=== PATIENT | male | born 1955 | race Caucasian/White ===

== ENCOUNTER 2021-01-13 11:01 | Outpatient (CLI) | payer MEDICARE, OTHER, SELFPAY ==
--- NOTE | ~2021-01-13 | US_ITS ---
US soft tissue groin LT 01/13/2021 11:37 Indication: Left groin and pelvic swelling. History of hernia repair. Procedure: High-resolution ultrasound of the left groin Comparison: No prior studies for comparison. Findings: There is normal heterogeneous soft tissues in the left groin without evidence for hernia. N o abnormal masses or fluid collections. Normal vascularity. Impression: 1: Normal limited soft tissue ultrasound of the left groin without evidence for hernia. Reviewed, dictated and finalized at location A. Impression: 1: Normal limited soft tissue ultrasound of the left groin without evidence for hernia.
== END 2021-01-13 11:02 | disposition home or self-care (01) ==
LOC: ANHIMG 11:04
PROVIDERS: PCP Family Medicine; Visit Provider Family Medicine
DX: R19.00 Intra-abdominal and pelvic swelling, mass and lump, unspecified site (principal)
CPT/HCPCS: 76882

== ENCOUNTER 2021-08-15 06:58 | Outpatient (CLI) | payer MEDICARE, OTHER, SELFPAY ==
--- NOTE | ~2021-08-15 | XR_ITS ---
XR chest 2V 08/15/2021 07:18 Indication: Rheumatoid arthritis. Shortness of breath. Procedure: 2 view chest Comparison: 06/18/2019 Findings: Heart size normal. Left perihilar and bibasilar atelectasis. No focal pneumonia, pleural ef fusion, edema or pneumothorax. Impression: 1: Left perihilar and bibasilar atelectasis. Reviewed, dictated and finalized at location A. Y SPECIALIST Impression: 1: Left perihilar and bibasilar atelectasis.
[2021-08-15 07:43] LABS: Basophils Absolute Auto 0.1 K/mm3 (0.0-0.1); Eosinophils Absolute Auto 0.2 K/mm3 (0-0.3); Eosinophils Percent Auto 2.8 % (0-4.4); Hematocrit 49.1 % (42.0-52.0); Hemoglobin 15.9 g/dL (14.0-18.0); Immature Granulocyte Absolute 0.01 K/mm3 (0.00-0.031); Immature Granulocyte Percent A 0.2 % (0-0.5); Lymphocytes Absolute Auto 2.65 K/mm3 (0.9-3.2); Lymphocytes Percent Auto 45.8 % (18.3-44.2); Mean Corpuscular HGB Conc 32.4 g/dl (32-36); Mean Corpuscular Hemoglobin 31.1 pg (26-34); Mean Corpuscular Volume 96.1 fl (80-100); Mean Platelet Volume 9.4 fl (7.4-10.4); Monocytes Absolute Auto 0.8 K/mm3 (0.1-0.6); Monocytes Percent Auto 13.7 % (2.6-8.5); Neutrophils Absolute Auto 2.1 K/mm3 (1.3-6.7); Neutrophils Percent Auto 36.5 % (45.5-73.1); Platelet Count Result 236 k/mm3 (150-375); Red Blood Count 5.11 M/mm3 (4.6-6.20); Red Cell Distribution Width 13.8 % (11.5-14.5); White Blood Count 5.8 K/mm3 (4.5-10.0)
[2021-08-15 07:54] LABS: Alanine Aminotransferase 44 U/L (4-50); Albumin Level 4.4 g/dL (3.5-5.1); Alkaline Phosphatase 75 U/L (38-126); Anion Gap 6 mmol/L (8-16); Aspartate Amino Transferase 34 U/L (17-59); Bilirubin,Total 0.6 mg/dL (0.2-1.3); Blood Urea Nitrogen 19 mg/dL (9-20); Calcium 9.2 mg/dL (8.4-10.2); Carbon Dioxide 27 mmol/L (22-30); Chloride 107 mmol/L (98-107); Cholesterol 133 mg/dL (0-200); Estimated Glomerular Filt Rate > 60; Glucose 142 mg/dL (65-110); HDL Direct 58 mg/dL; Potassium 4.4 mmol/L (3.4-5.0); Sodium 140 mmol/L (137-145); Triglycerides 93 mg/dL (<150)
[2021-08-15 08:04] LABS: Hemoglobin A1C 6.3 % (<5.7)
[2021-08-15 08:05] LABS: LDL Cholesterol Direct 53 mg/dL
== END 2021-08-15 06:59 | disposition home or self-care (01) ==
LOC: ANHIMG 07:03
PROVIDERS: PCP Family Medicine; Visit Provider Nurse Practitioner Gerontology
DX: M06.9 Rheumatoid arthritis, unspecified (principal); I10 Essential (primary) hypertension; E78.5 Hyperlipidemia, unspecified; R91.8 Other nonspecific abnormal finding of lung field
CPT/HCPCS: 36415; 71046; 80053; 80061; 83036; 85025

== ENCOUNTER → 2021-10-21 02:09 | Outpatient (CLI) | payer MEDICARE, OTHER, SELFPAY ==
[2021-10-21 15:55] LABS: SARS-CoV-2 RNA PCR Negative
== END ==
PROVIDERS: PCP Family Medicine; Visit Provider Nurse Practitioner Gerontology
DX: R68.89 Other general symptoms and signs (principal); Z20.822 Contact with and (suspected) exposure to COVID-19
CPT/HCPCS: C9803; U0003; U0005

== ENCOUNTER 2022-04-21 14:31 | Outpatient (CLI) | payer MEDICARE, OTHER, SELFPAY ==
--- NOTE | ~2022-04-21 | XR_ITS ---
EXAMINATION: XR chest 2V 04/21/2022 14:51 INDICATION: Wheezing.- Controlled hypertension PROCEDURE: 2 view chest COMPARISON: 08/15/2021 FINDINGS: The lungs are clear. The cardiomediastinal silhouette is within normal limits. There are no pleural effusions. There is no pneumothorax suspected. IMPRESSION: 1: NO ACUTE CARDIOPULMONARY DISEASE. Reviewed, dictated and finalized at location A.
== END 2022-04-21 14:32 | disposition home or self-care (01) ==
PROVIDERS: PCP Family Medicine; Visit Provider Nurse Practitioner Gerontology
DX: R06.2 Wheezing (principal); R06.02 Shortness of breath; Z87.891 Personal history of nicotine dependence
CPT/HCPCS: 71046

== ENCOUNTER 2022-05-10 08:50 | Outpatient (CLI) | payer MEDICARE, OTHER, SELFPAY ==
--- NOTE | 2022-05-10 12:35 | WPDPFTINT ---
PFT Procedure Performed PFT Procedure Performed Plethysmography (Lung Vol) Diffusing Cap (DLCO) Flow Vol Loop Spirometry w/o Bronchodil PFT Interpretation This is a pulmonary function test with spirometry, plethysmography and diffusing capacity. The test was performed and results interpreted in accordance with the 2019 and 2005 ATS/ERS Task Force guidelines respectively using the Global Lung Function Initiative-2012 reference equations. Patient demonstrated good effort and cooperation. Reproducibility criteria were met. The quality of the spirometry maneuver was Grade A. Findings: Spirometry: The contour the expiratory flow tracing is flattened. The contour the inspiratory flow tracing is normal. The FVC is 4.17 L, 88% predicted. The FEV1 is 3.15 L, 88% predicted. the FEV1: FVC ratio 75%. Plethysmography: The total lung capacity is 7.39 L, 100% predicted. The functional residual capacity is 3.86 L, 98% predicted. The residual volume is 2.95 L, 119% predicted. Diffusing capacity: The diffusing capacity unadjusted for hemoglobin and carboxyhemoglobin is 30.5, 109% predicted. The diffusing capacity adjusted for alveolar volume is 4.74, 120% predicted. Impression: The contour the expiratory flow tracing is flattened. This is consistent with a variable intrathoracic obstruction and can be seen with tracheomalacia of the intrathoracic airway, intrathoracic bronchogenic cyst, malignant tracheal lesions and vocal fold abnormalities. Clinical correlation is recommended. Otherwise, the spirometry is normal without evidence of an obstructive abnormality. The lung volumes are normal. The diffusing capacity is normal. There are no prior studies for comparison
== END 2022-05-10 08:51 | disposition home or self-care (01) ==
LOC: ANHPFT 08:51
PROVIDERS: PCP Family Medicine; Visit Provider Nurse Practitioner Gerontology
DX: R06.02 Shortness of breath (principal)
CPT/HCPCS: 94375; 94726; 94729

== ENCOUNTER 2022-05-25 08:58 | Outpatient (CLI) | payer MEDICARE, OTHER, SELFPAY ==
--- NOTE | ~2022-05-25 | CT_ITS ---
EXAMINATION: CT soft tissue neck chest w DATE: 05/25/2022 09:39 INDICATION: Wheezing. Shortness of breath. Abnormal pulmonary function tests. TECHNIQUE: Computed tomography (CT) of the neck and chest was performed with 75 mL Omnipaque-350 intr avenous contrast. Automated exposure control and iterative reconstruction technique were employed. e dose-length product was 1167.56 mGy-cm. COMPARISON: chest CT 04/22/19 FINDINGS: CT NECK: There are no pathologically enlarged lymph nodes. There is plaque in the proximal internal c arotid arteries with less than 50% stenosis relative to normal distal artery lumen diameters. There i s mild mucosal thickening in the paranasal sinuses. There is plate and screw fixation of the anterior lindsey of the maxillary sinuses. The mastoid air cells are normal. There is mild cervical spondylosis . CT CHEST: There is chronic mild elevation of right hemidiaphragm. There is mild bronchiectasis in rig ht middle lobe. No honeycombing. The lungs demonstrate mild atelectasis. There is a stable 4 mm nodul e in left lower lobe, likely benign. No pleural effusion. The trachea is normal. The heart size is no rmal. There are coronary artery calcifications. No pericardial effusion. There is mild thoracic spond ylosis. IMPRESSION: 1. Mild bronchiectasis in right middle lobe. 2. Chronic mild elevation of right hemidiaphragm. Reviewed, dictated and finalized at location E. T LINER HELPER
[2022-05-25 09:23] LABS: Estimated Glomerular Filt Rate > 60
== END 2022-05-25 08:59 | disposition home or self-care (01) ==
PROVIDERS: PCP Family Medicine; Visit Provider Nurse Practitioner Gerontology
DX: R06.02 Shortness of breath (principal); R06.2 Wheezing; Z87.891 Personal history of nicotine dependence; J47.9 Bronchiectasis, uncomplicated
CPT/HCPCS: 70491; 71260; Q9967

== ENCOUNTER 2022-06-21 08:52 | Outpatient (CLI) | payer MEDICARE, OTHER, SELFPAY ==
--- NOTE | ~2022-06-21 | XR_ITS ---
EXAMINATION: XR barium swallow modified DATE: 06/21/2022 09:37 INDICATION: Abnormal pulmonary function tests, dysphagia TECHNIQUE: Modified barium esophagram was performed by myself who administered fluoroscopy, in conju nction with speech pathologist who administered barium in varying consistencies as per speech patholo gist documentation. This was recorded on tape. A single fluoroscopic spot image was recorded. Fluoros copy exposure time was 1.1 minutes. The DAP for this procedure was 1.657 Gycm2. FINDINGS: Oral stage: Adequate function. Pharyngeal phase: Adequate function. Laryngeal penetration: None. Aspiration: None. Laryngeal sensitivity: Present. IMPRESSION: Normal modified barium swallow. Please refer to speech pathologist findings and specific feeding recommendations. Reviewed, dictated and finalized at location A. IOLOGIST
--- NOTE | 2022-06-21 10:54 | REHSTMBS ---
Assessment and note entered by Evelia Reyes, PRINT DESIGNER Modified Barium Swallow Evaluation Feeding Type Recommended Oral Food Consistency Regular, Level 7 Liquid Consistency Thin (0) ST Clinical Summary MODIFIED BARIUM SWALLOW STUDY Patient was seen for a Modified Barium Swallow study at the request of his physician. Patient reports that he feels that something gets caught in his throat, moreso saliva than food or liquid, in fact denied difficulty swallowing food/liquid. Patient reports that occasionally he wheezes and occasionally he coughs up little white balls. This Modified Barium Swallow study was administered to assess this patient's muscle function for swallowing and to determine any risk for aspiration. Patient was viewed in the lateral position to the level of C5/C6. He was presented with average size sips of thin liquid contrast medium per cup and per straw, and then average bite-size of pudding mixed with semi-solid contrast medium and cracker coated with the mixture. Patient elicited quick swallows with no evidence of risk for penetration/aspiration. Muscle function appeared adequate. Patient is referred back to his physician for further assessment of his complaints. Thank you for this referral.
--- NOTE | 2022-06-21 12:16 | WPDPFTINT ---
PFT Procedure Performed PFT Procedure Performed Spirometry with Pre/Post Bronchodilator Flow Vol Loop PFT Interpretation Spirometry showed normal expiratory flow rates and a normal FEV1 to FVC ratio 76%. Following administration of a bronchodilator there was no significant change in the expiratory flow rates. The flow-volume loop is unremarkable. In comparison to previous study in April of 2022 the forced vital capacity and FEV1 are essentially unchanged. Impression: Spirometry within the normal range.
== END 2022-06-21 08:53 | disposition home or self-care (01) ==
PROVIDERS: PCP Family Medicine; Visit Provider Internal Medicine Pulmonary Disease
DX: R06.00 Dyspnea, unspecified (principal); R13.10 Dysphagia, unspecified; R94.2 Abnormal results of pulmonary function studies; R06.02 Shortness of breath; R06.2 Wheezing; Z87.891 Personal history of nicotine dependence
CPT/HCPCS: 92611; 94060

== ENCOUNTER 2022-08-06 18:15 | Emergency (ER) | payer MEDICARE, OTHER, SELFPAY ==
--- NOTE | ~2022-08-06 | XR_ITS ---
EXAMINATION: XR chest 1V Exam Date/Time: 08/06/2022 20:13 GENERATING STATION MECHANIC HISTORY: COVID+, has cough and fever. HX HTN Comparison: 04/21/2022. RESULT: Lines, tubes, and devices: None. Lungs and pleura: Left midlung scar. Bibasilar scar/atelectasis. Lungs otherwise clear Cardiomediastinal silhouette: Stable. Other: No acute osseous or upper abdominal finding. IMPRESSION: No acute cardiopulmonary process. Reviewed, dictated and finalized at location K. RATING STATION MECHANIC
[2022-08-06 18:21] VITALS: BP 215/91; PULSE 113; RESP 20; TEMP 38.2; O2SAT 95
[2022-08-06 18:42] LABS: Basophils Absolute Auto 0.1 K/mm3 (0.0-0.1); Basophils Percent Auto 0.6 % (0.2-1.2); Eosinophils Percent Auto 0.1 % (0-4.4); Hematocrit 46.9 % (42.0-52.0); Hemoglobin 15.8 g/dL (14.0-18.0); Immature Granulocyte Absolute 0.03 K/mm3 (0.00-0.031); Immature Granulocyte Percent A 0.3 % (0-0.5); Lymphocytes Absolute Auto 0.72 K/mm3 (0.9-3.2); Mean Corpuscular HGB Conc 33.7 g/dl (32-36); Mean Corpuscular Hemoglobin 31.5 pg (26-34); Mean Corpuscular Volume 93.4 fl (80-100); Mean Platelet Volume 9.4 fl (7.4-10.4); Monocytes Absolute Auto 0.9 K/mm3 (0.1-0.6); Monocytes Percent Auto 9.5 % (2.6-8.5); Neutrophils Absolute Auto 7.4 K/mm3 (1.3-6.7); Neutrophils Percent Auto 81.5 % (45.5-73.1); Platelet Count Result 243 k/mm3 (150-375); Red Blood Count 5.02 M/mm3 (4.6-6.20); Red Cell Distribution Width 13.8 % (11.5-14.5); White Blood Count 9.1 K/mm3 (4.5-10.0)
[2022-08-06 18:53] LABS: Lactic Acid Reflex 1.2 mmol/L (0.7-2.0)
[2022-08-06 18:54] LABS: Alanine Aminotransferase 47 U/L (6-50); Albumin Level 4.6 g/dL (3.5-5.1); Alkaline Phosphatase 83 U/L (38-126); Anion Gap 9 mmol/L (8-16); Aspartate Amino Transferase 39 U/L (17-59); Bilirubin,Total 0.7 mg/dL (0.2-1.3); Blood Urea Nitrogen 14 mg/dL (9-20); Calcium 8.7 mg/dL (8.4-10.2); Carbon Dioxide 25 mmol/L (22-30); Chloride 104 mmol/L (98-107); Estimated CRCL calculation 105 ml/min; Estimated Glomerular Filt Rate > 60; Glucose 156 mg/dL (65-110); Potassium 4.1 mmol/L (3.4-5.0); Sodium 138 mmol/L (137-145)
[2022-08-06 20:58] VITALS: BP 164/93; PULSE 101; RESP 17; TEMP 36.9; O2SAT 97
--- NOTE | 2022-08-06 21:01 | PC.NURSE ---
Triage note reviewed and confirmed. Pt c/o fever at home. Also tested positive for covid. Also states feeling nauseous. hx of htn. a&ox4, NAD.
--- NOTE | 2022-08-06 21:53 | ED.GENADULT ---
HPI - General Adult General Chief complaint: Fever Stated complaint: covid + Time Seen by Provider: 08/06/22 21:39 History of Present Illness HPI narrative: Patient is a 67-year-old gentleman who presents the emergency department with chief complaint of COVID-19 infection. The patient reports that his symptoms started yesterday and then today started having fever and cough. Patient reports no nausea vomiting chest pain or shortness of breath. The patient states his cough has improved since he is arrived in the emergency department. Patient reports that he does have history of rheumatoid arthritis and is currently on immunosuppressive agents. Related Data Home Medications Medication Instructions Recorded Confirmed esomeprazole magnesium 20 mg 20 mg PO DAILY 04/22/19 06/05/22 capsule,delayed release (Nexium) folic acid 1 mg tablet 1 mg PO DAILY 04/22/19 06/05/22 hydroxychloroquine 200 mg tablet 200 mg PO BID 04/22/19 06/05/22 (Plaquenil) methotrexate sodium 2.5 mg tablet 20 mg PO WEEKLY 04/22/19 06/05/22 econazole 1 % topical cream 1 applic topical DAILY 08/26/21 06/05/22 furosemide 20 mg tablet 10 mg PO DAILY 06/05/22 06/05/22 rosuvastatin 20 mg tablet (Crestor) 10 mg PO DAILY 06/05/22 06/05/22 Allergies Allergy/AdvReac Type Severity Reaction Status Date / Time No Known Allergies Allergy Unverified 06/05/22 10:48 Review of Systems Review of Systems: A 10 system review of systems was completed on the patient and is negative except for what is stated in the HPI. Nursing and ancillary documentation was reviewed. [facility] Past Medical History Medical History Cleft palate Diet-controlled diabetes mellitus Hearing loss of both ears Hernia x3 HLD (hyperlipidemia) HTN (hypertension) Immunocompromised patient Pneumonia Rheumatoid arthritis On hydroxychloroquine, methotrexate, and leflunomide. Wears hearing aid Surgical History Surgical History History of ear surgery History of hernia repair X3. History of repair of congenital cleft palate Status post laser lithotripsy of ureteral calculus Family History Family History Mother Dementia Anxiety Hypercholesteremia Hypertension Father Heart attack Hypercholesteremia Hypertension Lung cancer Sibling Kidney disease Social History Social History Social History: The patient is and lives with his in [place]. 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 He designates his , Toyin, as his surrogate decision maker and he wishes to be a full code. He has a 15 pack year smoking history and quit 1993. He denies alcohol and drug use. Smoking packs per day: 2 Smoking cigarettes per day: 40.0 Years smoked: 17 Smoking pack-years: 34.00 Smoking status: Former smoker Tobacco type: cigarettes Second hand tobacco smoke exposure: No Smoking end date: 12/20/93 Alcohol intake: never Substance use: never Substance use type: does not use Living arrangements: with family Occupation/Education: retired Gender identity (if verbalized by the patient): Male Sexual Orientation (if Verbalized by the Patient): Straight or Heterosexual Exam Narrative: GENERAL: Well-appearing, well-nourished, and in no acute distress. HEAD: Normocephalic, atraumatic. EYES: PERRLA and EOMI. ENT: Nares clear, no rhinorrhea or epistaxis. Mucous membranes moist. NECK: Supple. CHEST: Clear to auscultation. No respiratory distress. HEART: Regular rate and rhythm. No murmur heard. Normal peripheral pulses. ABDOMEN: Soft, nontender, nondistended, normal active bowel sounds. EXTREMITIES: Normal range of motion. No edema. SKIN: Warm, dry, no rash. IMER
[2022-08-06 22:39] VITALS: BP 143/87; PULSE 89; RESP 18; TEMP 37.2; O2SAT 99
--- NOTE | 2022-08-07 08:26 | PC.NURSE ---
Had rxs sent to [facility] which is closed today; want it sent to [facility]; store not open yet; left Rxs on voice mail system.
== END 2022-08-06 22:40 | disposition home or self-care (01) ==
PROVIDERS: Emergency Medicine; Emergency Provider Emergency Medicine; PCP Family Medicine
DX: U07.1 COVID-19 (principal); E11.9 Type 2 diabetes mellitus without complications; E78.5 Hyperlipidemia, unspecified; I10 Essential (primary) hypertension; M06.9 Rheumatoid arthritis, unspecified; Z87.01 Personal history of pneumonia (recurrent); Z87.442 Personal history of urinary calculi
CPT/HCPCS: 36415; 71045; 80053; 83605; 85025; 99283

== ENCOUNTER 2022-10-10 06:55 | Outpatient (CLI) | payer MEDICARE, OTHER, SELFPAY ==
[2022-10-10 07:32] LABS: Cholesterol 122 mg/dL (0-200); HDL Direct 49 mg/dL; Triglycerides 105 mg/dL (<150)
[2022-10-10 07:43] LABS: LDL Cholesterol Direct 54 mg/dL
[2022-10-10 08:03] LABS: Hemoglobin A1C 6.9 % (<5.7)
== END 2022-10-10 06:56 | disposition home or self-care (01) ==
LOC: ANHLAB 06:57
PROVIDERS: PCP Family Medicine; Visit Provider Physician Assistant
DX: R73.03 Prediabetes (principal); E78.5 Hyperlipidemia, unspecified
CPT/HCPCS: 36415; 80061; 83036

== ENCOUNTER 2022-11-15 07:32 | Outpatient (CLI) | payer MEDICARE, OTHER, SELFPAY ==
--- NOTE | ~2022-11-15 | XR_ITS ---
XR shoulder LT min 2V DATE: 11/15/2022 07:49 INDICATION: Left arm pain TECHNIQUE: 4 views COMPARISON: None FINDINGS: There is prominent inferior spurring of the lateral articular margin of the left clavicle. There is old healed fracture deformity of the very lateral left clavicular shaft. No recent fracture or dislocation, periosteal reaction or bone destruction is detected. IMPRESSION: Degenerative change at the left glenohumeral joint including prominent inferior lateral a rticular clavicular spur Old healed lateral left clavicular shaft fracture deformity Reviewed, dictated and finalized at location A. IMPRESSION: Degenerative change at the left glenohumeral joint including promin ent inferior lateral articular clavicular spur Old healed lateral left clavicular shaft fracture deformity
== END 2022-11-15 07:33 | disposition home or self-care (01) ==
LOC: ANHIMG 07:36
PROVIDERS: PCP Family Medicine; Visit Provider Nurse Practitioner Gerontology
DX: M19.012 Primary osteoarthritis, left shoulder (principal)
CPT/HCPCS: 73030

== ENCOUNTER 2022-11-29 14:49 | Outpatient (CLI) | payer MEDICARE, OTHER, SELFPAY ==
[2022-11-30 08:25] LABS: Erythrocyte Sedimentation Rate 7 mm/hr (0-20)
[2022-11-30 10:29] LABS: CRP < 0.5 mg/dL (<1.0); Uric Acid 5.2 mg/dL (3.5-8.5)
== END 2022-11-29 14:50 | disposition home or self-care (01) ==
PROVIDERS: PCP Family Medicine; Visit Provider Podiatrist Foot & Ankle Surgery
DX: M25.571 Pain in right ankle and joints of right foot (principal); M25.572 Pain in left ankle and joints of left foot
CPT/HCPCS: 36415; 84550; 85652; 86140

== ENCOUNTER 2023-03-17 08:51 | Outpatient (CLI) | payer MEDICARE, OTHER, SELFPAY ==
--- NOTE | ~2023-03-17 | MR_ITS ---
EXAMINATION: MR shoulder LT wo con DATE: 03/17/2023 09:43 INDICATION: Left shoulder pain. Neck and left arm pain. TECHNIQUE: Magnetic resonance imaging (MRI) of the left shoulder was performed without intravenous co ntrast. Sequences included axial PD-weighted FS FSE, coronal oblique PD-weighted FS FSE and T2-weight ed FS FSE, and sagittal oblique T2-weighted FS FSE and T1-weighted FSE. COMPARISON: Left shoulder radiographs 11/15/2022 FINDINGS: Coracoacromial arch: The acromion undersurface is flat in morphology (type I). There is severe acromioclavicular joint ost eoarthritis including inferiorly directed osteophytes. There is mild subacromial/subdeltoid bursitis. Rotator cuff: There is moderate supraspinatus and infraspinatus tendinopathy. There is an articular sided partial t ear of supraspinatus and infraspinatus tendons measuring 14 mm anterior to posterior by 3 mm proximal to distal by up to 70% tendon thickness. Teres minor tendon is normal. There is mild subscapularis t endinopathy. There is no asymmetric fatty atrophy of the rotator cuff muscle bellies. Biceps tendon and glenoid labrum: Biceps tendon is in bicipital groove. Intra-articular biceps tendon is normal. The glenoid labrum is intact. Fluid: There is a small glenohumeral joint effusion. Bones/cartilage: There is cartilage surface irregularity of glenoid and humeral head. IMPRESSION: 1. Articular-sided, partial-thickness tear of supraspinatus and infraspinatus tendons. 2. Mild glenohumeral joint chondrosis. 3. Small glenohumeral joint effusion. 4. Mild subacromial/subdeltoid bursitis. 5. Severe acromioclavicular joint osteoarthritis. Reviewed, dictated and finalized at location E. IMPRESSION: 1. Articular-sided, partial-thickness tear of supraspinatus and infraspinatus t endons. 2. Mild glenohumeral joint chondrosis. 3. Small glenohumeral joint effusion. 4. Mild subacromial/subdeltoid bursitis. 5. Severe acromioclavicular joint osteoarthritis.
== END 2023-03-17 08:52 ==
LOC: MICIMG 08:53
PROVIDERS: PCP Family Medicine; Visit Provider Nurse Practitioner
DX: M19.012 Primary osteoarthritis, left shoulder (principal); M75.52 Bursitis of left shoulder
CPT/HCPCS: 73221

== ENCOUNTER 2023-04-24 07:13 | Outpatient (CLI) | payer MEDICARE, OTHER, SELFPAY ==
[2023-04-24 08:05] LABS: Basophils Absolute Auto 0.1 K/mm3 (0.0-0.1); Basophils Percent Auto 0.9 % (0.2-1.2); Eosinophils Absolute Auto 0.2 K/mm3 (0-0.3); Hematocrit 45.2 % (42.0-52.0); Hemoglobin 14.9 g/dL (14.0-18.0); Immature Granulocyte Absolute 0.02 K/mm3 (0.00-0.031); Immature Granulocyte Percent A 0.3 % (0-0.5); Lymphocytes Absolute Auto 2.32 K/mm3 (0.9-3.2); Lymphocytes Percent Auto 34.8 % (18.3-44.2); Mean Corpuscular Hemoglobin 31.9 pg (26-34); Mean Corpuscular Volume 96.8 fl (80-100); Mean Platelet Volume 9.7 fl (7.4-10.4); Monocytes Absolute Auto 0.7 K/mm3 (0.1-0.6); Monocytes Percent Auto 10.2 % (2.6-8.5); Neutrophils Absolute Auto 3.4 K/mm3 (1.3-6.7); Neutrophils Percent Auto 50.8 % (45.5-73.1); Platelet Count Result 236 k/mm3 (150-375); Red Blood Count 4.67 M/mm3 (4.6-6.20); Red Cell Distribution Width 13.9 % (11.5-14.5); White Blood Count 6.7 K/mm3 (4.5-10.0)
[2023-04-24 08:14] LABS: Alanine Aminotransferase 57 U/L (6-50); Albumin Level 4.1 g/dL (3.5-5.1); Alkaline Phosphatase 74 U/L (38-126); Anion Gap 5 mmol/L (8-16); Aspartate Amino Transferase 39 U/L (17-59); Bilirubin,Total 0.7 mg/dL (0.2-1.3); Blood Urea Nitrogen 13 mg/dL (9-20); Calcium 9.1 mg/dL (8.4-10.2); Carbon Dioxide 28 mmol/L (22-30); Chloride 104 mmol/L (98-107); Cholesterol 150 mg/dL (0-200); Estimated Glomerular Filt Rate > 60; Glucose 143 mg/dL (65-110); HDL Direct 51 mg/dL; Potassium 4.3 mmol/L (3.4-5.0); Sodium 137 mmol/L (137-145); Triglycerides 102 mg/dL (<150)
[2023-04-24 08:16] LABS: Hemoglobin A1C 6.1 % (<5.7)
[2023-04-24 08:25] LABS: LDL Cholesterol Direct 77 mg/dL
== END 2023-04-24 07:14 | disposition home or self-care (01) ==
LOC: ANHLAB 07:15
PROVIDERS: PCP Family Medicine; Visit Provider Physician Assistant
DX: E78.5 Hyperlipidemia, unspecified (principal); E11.9 Type 2 diabetes mellitus without complications; I10 Essential (primary) hypertension; E07.9 Disorder of thyroid, unspecified; D64.9 Anemia, unspecified
CPT/HCPCS: 36415; 80053; 80061; 83036; 84443; 85025

== ENCOUNTER 2023-06-01 09:50 | Outpatient (CLI) | payer MEDICARE, OTHER, SELFPAY ==
--- NOTE | 2023-06-01 10:01 | ECG_ITS ---
Measurements Intervals [place] Rate: 70 P: 34 RI: 159 QRS: -49 QRSD: 107 T: 11 QT: 395 QTc: 427 Interpretive Statements SINUS RHYTHM LEFT ANTERIOR FASCICULAR BLOCK [QRS AXIS <= -45, QR IN I, RS IN II] ABNORMAL ECG COMPARED TO ECG 06/18/2019 01:04:23 NO SIGNIFICANT CHANGES Electronically Signed On 06-01-2023 14:11:17 GEOCHEMICAL MANAGER by Bartolo Young M.D.
== END 2023-06-01 09:51 | disposition home or self-care (01) ==
PROVIDERS: PCP Family Medicine; Visit Provider Orthopaedic Surgery
DX: I10 Essential (primary) hypertension (principal); Z01.818 Encounter for other preprocedural examination; I44.4 Left anterior fascicular block
CPT/HCPCS: 93005

== ENCOUNTER 2023-06-05 02:14 | Day surgery (SDC) | payer MEDICARE, OTHER, SELFPAY ==
--- NOTE | 2023-05-30 15:03 | PC.NURSE ---
Report to the Outpatient Waiting Room, entrance under the green pavilion located off [facility], at time _1130 on date __06/05/23 . Planned Procedure Time: 1330 . Time changes happen often and if your time is changed the preop area will call you the afternoon before. - You and your visitor will be asked to self-screen and do not enter if you have any COVID symptoms. - A mask is optional within the hospital at this time. Patients may have clear liquids (water, carbonated beverages, clear teas, apple juice) until 3 hours prior to surgery(1030 AM) with a maximum of 20 ounces. - No food from midnight until time of surgery - Infants may have breast milk until 4 hours before surgery, formula 6 hours prior to surgery. - Children will be allowed to drink immediately following surgery. If applicable, please bring a bottle or sippy cup to assist with drinking. Juice, water, soda, and popsicles are readily available. For infants on formula, please bring formula the day of surgery. Pacifiers are allowed. Take the following medications with a SIP of water the morning of surgery: ____FLUOXETINE, DO NOT STOP ANY OF YOUR OTHER PRESCRIPTION MEDICATIONS PRIOR TO SURGERY ?EXCEPT THE FOLLOWING Medications to discontinue per physician __PT STATES HOLD ASPIRIN AND METHOTREXATE 7 DAYS PRE OP PER DR FELDMAN.LAST DOSE 05/28/23 Date to take last dose Please no make-up, nail macanese, hairspray, perfume, deodorant, or body powder the day of surgery. No jewelry (including any body piercings) or valuables the day of surgery, leave them at home. Please take a shower or bath the night before, or the morning of, surgery with an antibacterial soap. Wear comfortable, loose fitting clothing. Children are encouraged to wear pajamas. - Jewelry must be removed prior to entering the operating room. Rings and piercings that are not removed may be cut off. - The hospital will not accept responsibility for valuables. - Please leave all valuables, including medications, at home the day of surgery. If you are going home after surgery, a licensed driver guard must drive you home. - NO public transportation without another adult if you receive anesthesia. - We recommend that an adult stay with you for 24 hours following discharge. - We also recommend that you do not drive, make important decision, drink alcoholic beverages, or take any drugs that were not prescribed by your health care provider for at least 24 hours after your discharge time. For Pediatric surgeries, we recommend two adults accompany the child home. Follow any additional instructions given to you from your surgeon. If you or anyone in your household have experienced Covid symptoms in the past week, please notify your surgeon or the nurse liaison at the phone number below for possible testing. Telephone instructions given to __PT AND TERRY and asked if any additional questions and then verbalized understanding. Patient advised to call surgeon office or pre surgery nurse liaison [phone] if any additional questions.
[2023-05-30 15:17] VITALS: BMI 33.9
[2023-06-05] VITALS (9 sets, daily range): BP systolic 144–183; BP diastolic 84–105; PULSE 77–109; RESP 10–20; TEMP 36.2–36.7; O2SAT 93–99
--- NOTE | 2023-06-05 07:17 | WPDHPUPDATE1 ---
History and Physical Update Update Date/Time: 06/05/23 07:17 History and Physical has been reviewed, including an updated exam of the patient. There are NO changes in the patient's condition. Risks, benefits, and alternatives have been discussed and questions answered. Patient agrees to proceed with procedure.
[2023-06-05] MEDS: ACETAMINOPHEN 500 MG TABLET 1000 MG PO (12:14)
[2023-06-05] MEDS: LACTATED RINGERS 1,000 ML 30 ML IV CONT ×2 (12:20→16:19)
[2023-06-05] MEDS: KETOROLAC 15 MG/ML VIAL (*BKC) IV PUSH (12:22)
--- NOTE | 2023-06-05 13:24 | WPDANESEPPF ---
Anes - Initial Pre Proc Eval Procedure: Operation Date: 06/05/23 13:30 Proposed Procedures p Left Shoulder Arthroscopic Rotator Cuff Repair with Subacromial Decompression, Proceed As Indicated - Rolando Thomas MD Date/Time: 06/05/23 13:24 Surgeon: Rolando Thomas MD Pre Op Diagnosis: left shoulder partial rot cuff tear Patient Data Age: 68 Gender: M Height: 1.83 m Weight: 121.8 kg Last Vital Signs Temp 36.7 C 06/05/23 11:34 Pulse 77 06/05/23 12:06 Resp 20 06/05/23 11:34 BP 167/85 H 06/05/23 12:06 Pulse Ox 98 06/05/23 12:06 O2 Del Method Room Air 06/05/23 12:06 Allergies Allergy/AdvReac Type Severity Reaction Status Date / Time No Known Allergies Allergy Verified 06/05/23 12:07 Home Medications Medication Instructions Recorded Confirmed Type esomeprazole magnesium 20 mg 20 mg PO DAILY 04/22/19 05/30/23 History capsule,delayed release (Nexium) folic acid 1 mg tablet 1 mg PO DAILY 04/22/19 06/05/23 History hydroxychloroquine 200 mg tablet 200 mg PO BID 04/22/19 06/05/23 History (Plaquenil) methotrexate sodium 2.5 mg tablet 22.5 mg PO WEEKLY 04/22/19 06/05/23 History econazole 1 % topical cream 1 applic topical DAILY 08/26/21 05/30/23 History fluoxetine 20 mg capsule 20 mg PO DAILY #90 caps 01/23/23 06/05/23 Rx aspirin 81 mg capsule 81 mg PO DAILY 02/07/23 06/05/23 History golimumab 12.5 mg/mL intravenous IV 02/07/23 05/22/23 History solution (Simponi ARIA) sildenafil 100 mg tablet (Viagra) 100 mg PO DAILY PRN sexual 03/11/23 05/30/23 Rx activity #14 tabs rosuvastatin 10 mg tablet 10 mg PO DAILY #90 tabs 04/05/23 06/05/23 Rx clonidine HCl 0.1 mg tablet See Rx Instructions .Route 05/01/23 06/05/23 Rx .COMPLEX #90 tabs irbesartan 300 1 tablet PO DAILY #90 tabs 05/01/23 06/05/23 Rx mg-hydrochlorothiazide 12.5 mg tablet tizanidine 2 mg tablet 2 mg PO Q12H PRN muscle spasticity 05/01/23 06/05/23 Rx #60 tabs Patient hx anesthesia problems: none Family hx anesthesia problems: none Results Review: All pre-operative results and documents have been reviewed as part of the pre-operative evaluation. [facility] Past Medical History Medical History Acute myringitis, right ear Anxiety Cleft palate COVID-19 virus infection Diet-controlled diabetes mellitus Hearing loss of both ears Hernia x3 HLD (hyperlipidemia) HTN (hypertension) Immunocompromised patient LPRD (laryngopharyngeal reflux disease) PND (post-nasal drip) Pneumonia Rheumatoid arthritis On hydroxychloroquine, methotrexate, and leflunomide. Sacro-iliac pain Wears hearing aid Wheezing Surgical History Surgical History History of ear surgery History of hernia repair X3. History of repair of congenital cleft palate Status post laser lithotripsy of ureteral calculus Family History Family History Mother Dementia Anxiety Hypercholesteremia Hypertension Father Heart attack Hypercholesteremia Hypertension Lung cancer Sibling Kidney disease Social History Social History Social History: The patient is and lives with his in [place]. 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 He designates his , Toyin, as his surrogate decision maker and he wishes to be a full code. He has a 15 pack year smoking history and quit 1993. He denies alcohol and drug use. Smoking packs per day: 2 Smoking cigarettes per day: 40.0 Years smoked: 17 Smoking pack-years: 34.00 Smoking status: Former smoker Tobacco type: cigarettes Second hand tobacco smoke exposure: No Smoking end date: 06/18/93 Alcohol intake: never Substance use: never Substance use type: does not use Lack of Tra
[2023-06-05] MEDS: ceFAZolin 1 GM/NS 50 ML 1 GM/50 ML BAG IVPB (13:49)
[2023-06-05] MEDS: ceFAZolin 2 GM/D5W 50 ML 2 GM/50 ML BAG IVPB (13:49)
[2023-06-05] MEDS: BUPIVACAINE/EPINEPHRINE 0.5% 10 ML VIAL 30 ML INFILTRATE (14:43)
--- NOTE | 2023-06-05 16:24 | P.OP_ITS ---
Procedure Note - Detailed Date of Procedure 06/05/23 Pre-op Diagnosis left shoulder partial rot cuff tear Post-op Diagnosis Other (1. Rotator cuff tear (high grade partial) 2. Subacromial impingement 3. SLAP tear) Procedure Performed Left shoulder 1. Arthroscopic rotator cuff repair (including partial supraspinatus and partial subscapularis tendon tears) 2. Arthroscopic subacromial decompression 3. Arthroscopic biceps tenodesis with labral debridement Surgeon Rolando Thomas MD Anesthesia General and Regional ( interscalene block) Findings High-grade partial bursal side tear approximately 75%. The articular side looked normal other than 10% fraying at the anterior supraspinatus. Also partial-thickness subscapularis tear and significant SLAP tear with instability of the biceps anchor. Degenerative tearing of the anterior and posterior labrum extended moderately. The labrum was debrided and the biceps released for tenodesis. Articular tenodesis with SwiveLock anchor as well as suture fixation of the partial subscapularis tear. The articular rotator cuff was debrided. The bursal cuff was repaired with 2 bone tunnels and 6 sutures. Subacromial decompression performed where there was obvious impingement on the bursal side tear. The bursa was significantly thickened and a bursectomy was performed. Description of Procedure Preoperative antibiotics were given. An interscalene block was administered in the preoperative area. The patient was bought brought to the operating room. A general anesthetic was administered. The patient was carefully positioned in the beach chair position. The head and neck were carefully positioned. The non operative extremity was also carefully positioned. The shoulder was prepped and draped in the usual sterile fashion. Examination was performed. Standard posterior and anterior arthroscopic portals were established. Inflow achieved with the arthroscopic pump using saline and epinephrine. The glenohumeral joint was carefully inspected. The cartilage was healthy although the labrum was significantly frayed throughout. The biceps anchor was unstable and a tenodesis was performed at the articular margin. The subscapularis had moderate grade partial-thickness tearing. A horizontal mattress suture added to the SwiveLock anchor for the biceps provided excellent anatomic congregation and stability of the upper subscapularis. The articular supraspinatus was only mildly frayed. Gentle debridement was performed. Attention was turned to the subacromial space. A complete bursectomy was performed. The bursa was quite thickened. There was a small non retracted tear of the rotator cuff bursal side. This did not go through completely but was rather extensive for a partial tear. It was a little wider than typically would be found and quite amenable to anatomic congregation of the footprint. The rotator cuff and footprint were lightly debrided. A modest acromioplasty was performed. The tear configuration was carefully assessed. At this point, 2 tunnels were created at the rotator cuff. The ArthroTunneler technique was utilized. Three sutures were passed through each tunnel. All sutures were then passed through the cuff tissue. The sutures were tied arthroscopically. The arthroscopic instruments were removed. The wounds were closed with 3-0 Monocryl subcuticular suture and steri strips. There were no complications. A sling was applied and the patient brought to the recovery room. Implants Arthrex SwiveLock anchor. Estimated Blood Loss 20 Pathology None sent Complications No immediate complications Condition Stable Disposition PACU [facility] Surgery - Charge Forward: Jose
[2023-06-05 16:36] LABS: Glucose Point of Care 157 mg/dl (65-105)
[2023-06-05] MEDS: HYDROmorphone HCL INJ (*CRX) 1 MG/ML SYR 0.5 MG IV PUSH ×2 (16:48→17:12)
[2023-06-05] MEDS: oxyCODONE HCL (*CRX) 5 MG TAB IR PO (17:48)
== END 2023-06-05 18:34 | disposition home or self-care (01) ==
PROVIDERS: PCP Family Medicine; Visit Provider Orthopaedic Surgery
PROC: (CPT 29805; principal; 2023-06-05 13:30)
DX: M75.112 Incomplete rotator cuff tear or rupture of left shoulder, not specified as traumatic (principal); M75.82 Other shoulder lesions, left shoulder; M75.42 Impingement syndrome of left shoulder; I10 Essential (primary) hypertension; F41.9 Anxiety disorder, unspecified; E11.9 Type 2 diabetes mellitus without complications; K21.9 Gastro-esophageal reflux disease without esophagitis; E78.5 Hyperlipidemia, unspecified; M06.9 Rheumatoid arthritis, unspecified; Z79.631 Long term (current) use of antimetabolite agent; Z79.82 Long term (current) use of aspirin; Z79.620 Long term (current) use of immunosuppressive biologic; Z87.891 Personal history of nicotine dependence; E66.9 Obesity, unspecified; Z68.36 Body mass index [BMI] 36.0-36.9, adult
CPT/HCPCS: 29827; 29828; 29826; 82948; A4565; A9270; C1713; J0171; J0330; J0690; J1100; J1170; J1885; J2250; J2371; J2405; J2704; J3010; J7120

== ENCOUNTER 2023-11-23 18:11 | Emergency (ER) | payer MEDICARE, OTHER, SELFPAY ==
[2023-11-23 18:24] VITALS: BP 147/86; PULSE 88; RESP 16; TEMP 37.3; O2SAT 98
--- NOTE | 2023-11-23 18:32 | ED.ABDPAIN ---
HPI - Abdominal Pain General Chief Complaint: Abdominal Pain Stated Complaint: R SIDE/ABD PAIN Time Seen by Provider: 11/23/23 18:21 Source: patient, family () and RN notes reviewed Mode of arrival: ambulatory Limitations: no limitations History of Present Illness HPI narrative: Patient presents today complaining of 3 day history of abdominal pain. States pain initially started on the left side, with the center, and settled on the right side on the 1st day of onset. Symptoms worsened 2 days ago and now includes nausea with decreased appetite dry heaves. Denies fever or urinary symptoms. States he had 1 episode of diarrhea today after eating grapes. Currently rates his pain 12/25 and took a dose of Tylenol without relief. History of borderline diabetes and rheumatoid arthritis. Related Data Home Medications Medication Instructions Recorded Confirmed esomeprazole magnesium 20 mg 20 mg PO DAILY 04/22/19 11/23/23 capsule,delayed release (Nexium) folic acid 1 mg tablet 1 mg PO DAILY 04/22/19 11/23/23 hydroxychloroquine 200 mg tablet 200 mg PO BID 04/22/19 11/23/23 (Plaquenil) methotrexate sodium 2.5 mg tablet 22.5 mg PO WEEKLY 04/22/19 11/23/23 econazole 1 % topical cream 1 applic topical DAILY 08/26/21 11/23/23 golimumab 12.5 mg/mL intravenous 12.5 mg IV Q2M 02/07/23 11/23/23 solution (Simponi ARIA) Allergies Allergy/AdvReac Type Severity Reaction Status Date / Time No Known Allergies Allergy Verified 11/23/23 18:16 Review of Systems Review of Systems: CONSTITUTIONAL: Denies body aches, fever, chills, or sweats. EYES: Denies visual changes, redness, or discharge. ENT: Denies rhinorrhea, congestion, sore throat, or otalgia. CARDIOVASCULAR: Denies chest pain, palpitations, or edema. RESPIRATORY: Denies cough or dyspnea. GASTROINTESTINAL: Denies vomiting. + right lower quadrant abdominal pain, nausea, diarrhea GENITOURINARY: Denies dysuria or hematuria. SKIN: Denies rash, itching, or wounds. MUSCULOSKELETAL: Denies back pain, joint pain, or myalgia. NEUROLOGIC: Denies headache, numbness, tingling, or weakness. PSYCH: Denies depression or anxiety. [facility] Past Medical History Medical History Acute myringitis, right ear Anxiety Cleft palate COVID-19 virus infection Diet-controlled diabetes mellitus Hearing loss of both ears Hernia x3 HLD (hyperlipidemia) HTN (hypertension) Immunocompromised patient LPRD (laryngopharyngeal reflux disease) PND (post-nasal drip) Pneumonia Rheumatoid arthritis On hydroxychloroquine, methotrexate, and leflunomide. Sacro-iliac pain Wears hearing aid Wheezing Surgical History Surgical History History of ear surgery History of hernia repair X3. History of repair of congenital cleft palate History of repair of left rotator cuff (~06/05/23) w/Subacromial Decompression Status post laser lithotripsy of ureteral calculus Family History Family History Mother Dementia Anxiety Hypercholesteremia Hypertension Father Heart attack Hypercholesteremia Hypertension Lung cancer Sibling Kidney disease Social History Social History Social History: The patient is and lives with his in [place]. 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 He designates his , Toyin, as his surrogate decision maker and he wishes to be a full code. He has a 15 pack year smoking history and quit 1993. He denies alcohol and drug use. Smoking packs per day: 2 Smoking cigarettes per day: 40.0 Years smoked: 17 Smoking pack-years: 34.00 Smoking status: Former smoker Tobacco type: cigarettes Second hand tobacco smoke exposure: No Smoking end date: 06/18/93 Alcohol
== END 2023-11-23 18:33 | disposition short-term general hospital (02) ==
PROVIDERS: Emergency Provider Nurse Practitioner; PCP Family Medicine
DX: R10.31 Right lower quadrant pain (principal); Z87.891 Personal history of nicotine dependence; R73.03 Prediabetes; E78.5 Hyperlipidemia, unspecified; I10 Essential (primary) hypertension; M06.9 Rheumatoid arthritis, unspecified; K21.9 Gastro-esophageal reflux disease without esophagitis
CPT/HCPCS: 99212; G0463

== ENCOUNTER 2023-11-23 18:48 | Inpatient (IN) | payer MEDICARE, OTHER, SELFPAY ==
--- NOTE | ~2023-11-23 | CT_ITS ---
EXAMINATION: CT abdomen pelvis w con DATE: 11/23/2023 20:21 INDICATION: Right lower quadrant tenderness. TECHNIQUE: Computed tomography (CT) of the abdomen and pelvis was performed with 100 mL Omnipaque 350 intravenous contrast. Automated exposure control and iterative reconstruction technique were employe d. The dose-length product was 1582.19 mGy-cm. COMPARISON: CT abdomen and pelvis 12/23/2018 FINDINGS: The visualized portions of the lung bases demonstrate mild atelectasis. No pleural effusion . The heart size is normal. There are coronary artery calcifications. No pericardial effusion. The li eleni, gallbladder, spleen, and pancreas are normal. A chronic 19 mm hyperenhancing mass in the splenic tail is likely a splenule. The adrenal glands are normal. There are cysts in the kidneys measuring u p to 2.9 cm on the left. The prostate is moderately enlarged. There are scattered diverticula in the colon. The appendix measures 7 mm in diameter. There is fat stranding around a diverticulum of the ba se of the appendix with punctate foci of free gas and appendicolith in the diverticulum, consistent w ith diverticulitis and microperforation. There are no pathologically enlarged lymph nodes. There is n o free intraperitoneal fluid. There is mild thoracic and lumbar spondylosis. There is mild chronic an terior wedging of multiple thoracic vertebral bodies. IMPRESSION: 1. Diverticulitis of the base of the appendix with microperforation. No abscess. Reviewed, dictated and finalized at location E. IMPRESSION: 1. Diverticulitis of the base of the appendix with microperforation. No abscess .
[2023-11-23 18:50] VITALS: BP 146/74; PULSE 92; RESP 18; TEMP 36.8; O2SAT 95
[2023-11-23 19:50] VITALS: BP 139/82; PULSE 75; RESP 16; O2SAT 98
--- NOTE | 2023-11-23 19:55 | ED.ABDPAIN ---
HPI - Abdominal Pain General Chief Complaint: Abdominal Pain <VINCENT Barry Last Filed: 11/24/23 00:07> Stated Complaint: RLQ abd pain <VINCENT Barry Last Filed: 11/24/23 00:07> Time Seen by Provider: 11/23/23 19:49 <VINCENT Barry Last Filed: 11/24/23 00:07> Source: patient <VINCENT Barry Last Filed: 11/24/23 00:07> Mode of arrival: ambulatory <VINCENT Barry Last Filed: 11/24/23 00:07> Limitations: no limitations <VINCENT Barry Last Filed: 11/24/23 00:07> History of Present Illness HPI narrative: This is a 68-year-old male who presents To the ED for chief complaint of 3 day history of abdominal pain. He was seen by urgent care earlier and referred over to here. Patient reports that the pain started initially on the left side has since migrated over to the right side. reports pain focal in the right lower quadrant. Endorses nausea with dry heaves. One episode of diarrhea earlier today. Denies fevers, chills, urinary symptoms, flank pain. No relief with Tylenol. Reports history of borderline diabetes and rheumatoid arthritis for which he gets regular infusions. <Adam Angulo PA-C - Last Filed: 11/24/23 00:07> Related Data Home Medications: Home Medications Medication Instructions Recorded Confirmed esomeprazole magnesium 20 mg 20 mg PO DAILY 04/22/19 11/24/23 capsule,delayed release (Nexium) folic acid 1 mg tablet 1 mg PO DAILY 04/22/19 11/24/23 hydroxychloroquine 200 mg tablet 200 mg PO BID 04/22/19 11/24/23 (Plaquenil) methotrexate sodium 2.5 mg tablet 2.5 mg PO WEEKLY 04/22/19 11/24/23 econazole 1 % topical cream 1 applic topical DAILY PRN dryness 08/26/21 11/24/23 golimumab 12.5 mg/mL intravenous 12.5 mg IV Q2M 02/07/23 11/24/23 solution (Simponi ARIA) clonidine HCl 0.1 mg tablet 0.1 mg PO HS 11/24/23 11/24/23 rosuvastatin 10 mg tablet 10 mg PO DAILY 11/24/23 11/24/23 <Adam Angulo PA-C - Last Filed: 11/24/23 00:07> Allergies/Adverse Reactions: Allergies Allergy/AdvReac Type Severity Reaction Status Date / Time No Known Allergies Allergy Verified 11/23/23 18:56 <VINCENT Barry Last Filed: 11/24/23 00:07> Review of Systems Review of Systems: All systems as dictated in HPI <Adam Angulo PA-C - Last Filed: 11/24/23 00:07> [facility] Past Medical History Medical History: Medical History Acute myringitis, right ear Anxiety Cleft palate COVID-19 virus infection Diet-controlled diabetes mellitus Hearing loss of both ears Hernia x3 HLD (hyperlipidemia) HTN (hypertension) Immunocompromised patient LPRD (laryngopharyngeal reflux disease) PND (post-nasal drip) Pneumonia Rheumatoid arthritis On hydroxychloroquine, methotrexate, and leflunomide. Sacro-iliac pain Wears hearing aid Wheezing <VINCENT Barry Last Filed: 11/24/23 00:07> Surgical History Surgical History: Surgical History History of ear surgery History of hernia repair X3. History of repair of congenital cleft palate History of repair of left rotator cuff (~06/05/23) w/Subacromial Decompression Status post laser lithotripsy of ureteral calculus <Adam Angulo PA-C - Last Filed: 11/24/23 00:07> Family History Family History: Family History Mother Dementia Anxiety Hypercholesteremia Hypertension Father Heart attack Hypercholesteremia Hypertension Lung cancer Sibling Kidney disease <VINCENT Barry Last Filed: 11/24/23 00:07> Social History Social History: Social History Social History: The patient is and lives with his in [place]. 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
[2023-11-23 19:56] LABS: Basophils Absolute Auto 0.1 K/mm3 (0.0-0.1); Basophils Percent Auto 0.4 % (0.2-1.2); Eosinophils Percent Auto 0.1 % (0-4.4); Hemoglobin 15.4 g/dL (14.0-18.0); Immature Granulocyte Absolute 0.04 K/mm3 (0.00-0.031); Immature Granulocyte Percent A 0.3 % (0-0.5); Lymphocytes Absolute Auto 2.68 K/mm3 (0.9-3.2); Lymphocytes Percent Auto 18.8 % (18.3-44.2); Mean Corpuscular HGB Conc 33.5 g/dl (32-36); Mean Corpuscular Hemoglobin 32.2 pg (26-34); Mean Platelet Volume 9.6 fl (7.4-10.4); Monocytes Absolute Auto 1.4 K/mm3 (0.1-0.6); Monocytes Percent Auto 9.7 % (2.6-8.5); Neutrophils Absolute Auto 10.1 K/mm3 (1.3-6.7); Neutrophils Percent Auto 70.7 % (45.5-73.1); Platelet Count Result 259 k/mm3 (150-375); Red Blood Count 4.79 M/mm3 (4.6-6.20); Red Cell Distribution Width 13.4 % (11.5-14.5); White Blood Count 14.3 K/mm3 (4.5-10.0)
[2023-11-23] MEDS: ONDANSETRON INJ 4 MG/2 ML VIAL IV PUSH (20:00)
[2023-11-23] MEDS: HYDROmorphone HCL INJ (*CRX) 1 MG/ML SYR 0.5 MG IV PUSH (20:00)
[2023-11-23 20:02] LABS: Alanine Aminotransferase 32 U/L (6-50); Albumin Level 4.5 g/dL (3.5-5.1); Alkaline Phosphatase 69 U/L (38-126); Anion Gap 8 mmol/L (4-12); Aspartate Amino Transferase 33 U/L (17-59); Bilirubin,Total 1.1 mg/dL (0.2-1.3); Blood Urea Nitrogen 22 mg/dL (9-20); Calcium 8.9 mg/dL (8.4-10.2); Carbon Dioxide 28 mmol/L (22-30); Chloride 102 mmol/L (98-107); Estimated CRCL calculation 76 ml/min; Estimated Glomerular Filt Rate > 60; Glucose 125 mg/dL (65-110); Lipase 25 U/L (23-300); Potassium 3.8 mmol/L (3.4-5.0); Sodium 138 mmol/L (137-145)
[2023-11-23 20:04] LABS: Appearance Urine Clear (Clear); Bacteria Urine None Seen /hpf; Bilirubin Urine 1+ (Negative); Blood Urine Negative (Negative); Color Urine Dark Yellow (Yellow); Glucose Urine UA Negative (Negative); Ketones Urine Trace mg/dL (Negative); Leukocyte Esterase Ur Negative LEU/UL (Negative); Nitrate Urine Negative (Negative); Non Pathogenic Casts 0-2; Protein Urine 1+ mg/dL (Negative); RBC Urine 0-2 /hpf (0-2); Squamous Epithelial Cell Urine None Seen /hpf (Few); WBC Urine 0-5 /hpf (0-3)
[2023-11-23 20:22] LABS: Specific Grav Ur 1.043 (1.001-1.035)
[2023-11-23 20:24] LABS: Add Urine Microscopic? YES
[2023-11-23] MEDS: PIPERACILLN/TAZ 3.375GM/NS50ML 3.375 GM/50 ML BAG IVPB (20:43)
[2023-11-23] MEDS: SODIUM CHLORIDE 0.9% IV 1,000 ML 999 ML IV CONT (20:45)
[2023-11-23 21:44] VITALS: BP 118/71; PULSE 67; RESP 18; O2SAT 95
[2023-11-23 22:33] VITALS: BP 128/65; PULSE 67; RESP 18; O2SAT 98
[2023-11-23] MEDS: SODIUM CHLORIDE 0.9% IV 1,000 ML 125 ML IV CONT (22:57)
[2023-11-23 23:14] VITALS: BP 131/74; PULSE 71; RESP 16; O2SAT 98
--- NOTE | 2023-11-23 23:49 | PM.IMHP ---
H&P: HPI History of Present Illness Date/Time: 11/23/23 23:49 Chief Complaint: Patient complaining of abdominal pain for the last 3 days which is slowly worsening Narrative: Our patient is a pleasant 68 years old obese gentleman who came to the ER for evaluation of his worsening abdominal pain which started 3 days ago on the left lower quadrant and slowly migrated to right lower quadrant. He is complaining of nausea with dry heaves and 1 episode of diarrhea. Workup was done in the ER which showed leukocytosis of 14.3 and diverticulitis at the base of the appendix with microperforation without any abscess. General surgery was consulted who plan to manage him conservatively on IV antibiotics. He is being admitted to the medical unit for IV antibiotics, further evaluation, monitoring, workup and medical management. Review of Systems Review of Systems: 14 systems were reviewed with pertinent positives and negatives per HPI. Except as documented in the HPI/progress notes, all other systems were reviewed and are negative. All systems reviewed & are unremarkable except as noted in HPI and below PMFSH Past Medical History Medical History Acute myringitis, right ear Anxiety Cleft palate COVID-19 virus infection Diet-controlled diabetes mellitus Hearing loss of both ears Hernia x3 HLD (hyperlipidemia) HTN (hypertension) Immunocompromised patient LPRD (laryngopharyngeal reflux disease) PND (post-nasal drip) Pneumonia Rheumatoid arthritis On hydroxychloroquine, methotrexate, and leflunomide. Sacro-iliac pain Wears hearing aid Wheezing Surgical History Surgical History History of ear surgery History of hernia repair X3. History of repair of congenital cleft palate History of repair of left rotator cuff (~06/05/23) w/Subacromial Decompression Status post laser lithotripsy of ureteral calculus Family History Family History Mother Dementia Anxiety Hypercholesteremia Hypertension Father Heart attack Hypercholesteremia Hypertension Lung cancer Sibling Kidney disease Social History Social History Social History: The patient is and lives with his in [place]. 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 He designates his , Toyin, as his surrogate decision maker and he wishes to be a full code. He has a 15 pack year smoking history and quit 1993. He denies alcohol and drug use. Smoking packs per day: 2 Smoking cigarettes per day: 40.0 Years smoked: 17 Smoking pack-years: 34.00 Smoking status: Former smoker Tobacco type: cigarettes Second hand tobacco smoke exposure: No Smoking end date: 06/18/93 Alcohol intake: never Substance use: never Substance use type: does not use Do You Feel Safe in your Home?: Yes Lack of Transportation: No Lack of Food: Never True Current Housing: I Have Housing Concerned About Future Housing: No Difficulty Paying Gas/Electric Bills: No Difficulty Paying for Meds: No Currently Unemployed: No Education: Bachelor's Degree Difficulty w/ Childcare or Family Care: No Living arrangements: with family Occupation/Education: retired Gender identity (if verbalized by the patient): Male Sexual Orientation (if Verbalized by the Patient): Straight or Heterosexual Spiritual care concerns: No Meds Home Medications and Allergies Home Medications Medication Instructions Recorded Confirmed Type esomeprazole magnesium 20 mg 20 mg PO DAILY 04/22/19 11/24/23 History capsule,delayed release (Nexium) folic acid 1 mg tablet 1 mg PO DAILY 04/22/19 11/24/23 History hydroxychloroquine 200 mg tablet 200 mg PO BID 04/22/19 11/24/23 History (Plaquenil) methotrexate sodium 2.5 mg
[2023-11-23 23:52] VITALS: BP 142/80; PULSE 69; RESP 13; O2SAT 99
[2023-11-24 00:15] VITALS: BP 153/80; PULSE 76; RESP 14; TEMP 36.3; O2SAT 97; BMI 36.1
[2023-11-24] MEDS: HYDROmorphone HCL INJ (*CRX) 1 MG/ML SYR 0.5 MG IV PUSH (00:50)
[2023-11-24] MEDS: PIPERACILLN/TAZ 3.375GM/NS50ML 3.375 GM/50 ML BAG IVPB ×4 (02:29→20:28)
[2023-11-24 05:18] VITALS: BP 130/83; PULSE 78; RESP 12; TEMP 36.6; O2SAT 93
[2023-11-24] MEDS: IRBESARTAN 150 MG TABLET 300 MG PO (08:42)
[2023-11-24] MEDS: FLUoxetine HCL 20 MG CAPSULE BY MOUTH (08:42)
[2023-11-24] MEDS: ASPIRIN 81 MG ENTERIC TABLET PO (08:42)
[2023-11-24] MEDS: ROSUVASTATIN 10 MG TABLET PO (08:43)
[2023-11-24] MEDS: PANTOPRAZOLE 40 MG TABLET PO (08:43)
[2023-11-24] MEDS: hydroCHLOROthiazide 12.5 MG CAPSULE PO (08:43)
--- NOTE | 2023-11-24 09:55 | PM.CNGS ---
Assessment and Plan Assessment and plan (1) Diverticulitis of colon with perforation: Code(s): K57.20 - Diverticulitis of large intestine with perforation and abscess without bleeding Status: Acute Assessment and Plan: exam largely benign, we will start clears and advance as tolerated to low fiber diet, continue IV antibiotics and serial exams, encourage out of bed History of Present Illness Consult details Consult date: 11/24/23 Reason for consult: abdominal pain Requesting physician: Tee Del Real MD Narrative: The patient is a 68-year-old male presenting to the emergency department complaining of lower abdominal pain, right greater than left. The patient reports the pain has been ongoing the last 3-4 days and has progressively worsened. The patient reports associated poor appetite, nausea, and 1 episode of diarrhea. The patient does describe some subjective weakness, fever, chills. The patient denies any previous episodes. Workup in the emergency department, including imaging, is significant for cecal diverticulitis with micro perforation. Review of Systems Review of Systems: All systems reviewed & are unremarkable except as noted in HPI and below PMFSH Past Medical History Medical History Acute myringitis, right ear Anxiety Cleft palate COVID-19 virus infection Diet-controlled diabetes mellitus Hearing loss of both ears Hernia x3 HLD (hyperlipidemia) HTN (hypertension) Immunocompromised patient LPRD (laryngopharyngeal reflux disease) PND (post-nasal drip) Pneumonia Rheumatoid arthritis On hydroxychloroquine, methotrexate, and leflunomide. Sacro-iliac pain Wears hearing aid Wheezing Surgical History Surgical History History of ear surgery History of hernia repair X3. History of repair of congenital cleft palate History of repair of left rotator cuff (~06/05/23) w/Subacromial Decompression Status post laser lithotripsy of ureteral calculus Family History Family History Mother Dementia Anxiety Hypercholesteremia Hypertension Father Heart attack Hypercholesteremia Hypertension Lung cancer Sibling Kidney disease Social History Social History Social History: The patient is and lives with his in [place]. 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 He designates his , Toyin, as his surrogate decision maker and he wishes to be a full code. He has a 15 pack year smoking history and quit 1993. He denies alcohol and drug use. Smoking packs per day: 2 Smoking cigarettes per day: 40.0 Years smoked: 17 Smoking pack-years: 34.00 Smoking status: Former smoker Tobacco type: cigarettes Second hand tobacco smoke exposure: No Smoking end date: 06/18/93 Alcohol intake: never Substance use: never Substance use type: does not use Do You Feel Safe in your Home?: Yes Lack of Transportation: No Lack of Food: Never True Current Housing: I Have Housing Concerned About Future Housing: No Difficulty Paying Gas/Electric Bills: No Difficulty Paying for Meds: No Currently Unemployed: No Education: Bachelor's Degree Difficulty w/ Childcare or Family Care: No Living arrangements: with family Occupation/Education: retired Gender identity (if verbalized by the patient): Male Sexual Orientation (if Verbalized by the Patient): Straight or Heterosexual Spiritual care concerns: No Meds Home Medications and Allergies Home Medications Medication Instructions Recorded Confirmed Type esomeprazole magnesium 20 mg 20 mg PO DAILY 04/22/19 11/24/23 History capsule,delayed release (Nexium) folic acid 1 mg tablet 1 mg PO DAILY 04/22/19 11/24/23 History hydroxychloroquine
[2023-11-24] MEDS: SODIUM CHLORIDE 0.9% IV 1,000 ML 125 ML IV CONT (09:56)
--- NOTE | 2023-11-24 09:57 | PM.IMPN ---
Progress Note: A&P Assessment and Plan (1) Acute diverticulitis: Code(s): K57.92 - Diverticulitis of intestine, part unspecified, without perforation or abscess without bleeding Status: Acute (2) Borderline diabetes mellitus: Code(s): R73.03 - Prediabetes Status: Acute (3) Spondylosis, cervical: Code(s): M47.812 - Spondylosis without myelopathy or radiculopathy, cervical region Status: Acute (4) Partial thickness tear of left rotator cuff: Qualifiers: Rotator cuff tear trauma status: nontraumatic Qualified Code(s): M75.112 - Incomplete rotator cuff tear or rupture of left shoulder, not specified as traumatic Code(s): M75.112 - Incomplete rotator cuff tear or rupture of left shoulder, not specified as traumatic Status: Acute (5) Left shoulder pain: Code(s): M25.512 - Pain in left shoulder Status: Acute (6) Benign essential HTN: Code(s): I10 - Essential (primary) hypertension Status: Acute (7) Obesity: Code(s): E66.9 - Obesity, unspecified Status: Acute (8) Rheumatoid arthritis: Qualifiers: Rheumatoid arthritis location: unspecified site Rheumatoid factor presence: unspecified presence Qualified Code(s): M06.9 - Rheumatoid arthritis, unspecified Code(s): M06.9 - Rheumatoid arthritis, unspecified Status: Acute (9) Immunocompromised patient: Code(s): D89.9 - Disorder involving the immune mechanism, unspecified Status: Acute (10) HTN (hypertension): Qualifiers: Hypertension type: essential hypertension Qualified Code(s): I10 - Essential (primary) hypertension Code(s): I10 - Essential (primary) hypertension Status: Chronic (11) HLD (hyperlipidemia): Qualifiers: Hyperlipidemia type: unspecified Qualified Code(s): E78.5 - Hyperlipidemia, unspecified Code(s): E78.5 - Hyperlipidemia, unspecified Status: Chronic Plan Admit patient under full inpatient status Patient was diagnosed with diverticulitis of the base of appendix on abdominal CT scan Patient also has leukocytosis of 14.3- monitor Patient started on IV Zosyn in the ED which will continue on the floor 2 L of IV hydration in the ER with normal saline Continue with IV hydration with normal saline at 100 cc/hour on floor- if oral intake improves- will stop Strict I's and O's General surgery consult given by a ED provider for evaluation and further recommendations- no intervention- zosyn,monitor, ok to advance diet to low fiber-ambulation DC planning home on oral antibiotics once patient is clinically stable and cleared by surgery for discharge Continue with home meds. Monitor patient closely while admitted. Repeat labs in a.m. Electrolyte replacement as per protocol. Patient will be monitored very closely on the floor. Time Spent With Patient Time with patient: 25 - 35 minutes Subjective Date/time seen: 11/24/23 09:57 Interval history: 68 y.o male with PMH anxiety HLD, HTN, Rheumatoid arthritis (on hydroxychloroquine, methotrexate, and leflunomide), admitted from ED for c/o abdominal pain x 3 days that is getting worse. LLQ pain- slowly moved to rt side. Accompanied by nausea, 1 episode of diarrhea. Workup was done in the ER which showed leukocytosis of 14.3 and diverticulitis at the base of the appendix with microperforation without any abscess. General surgery was consulted who plan to manage him conservatively on IV antibiotics. He is being admitted to the medical unit for IV antibiotics, further evaluation, monitoring. 11/23- pt is seen and examined. He was on clear liquid- ok to advance to low fiber per surgery (was seen today). Encouraged ambulation. He denies any n/v/d. No pain. Educational material is provided about low fiber diet. Review of Systems Review of Systems: 14 systems were reviewed with pertinent positives and negatives per HPI. Except as documented in
[2023-11-24] MEDS: FOLIC ACID 1 MG TABLET PO (09:59)
[2023-11-24] MEDS: HYDROXYCHLOROQUINE SULFATE 200 MG TABLET PO ×2 (09:59→17:24)
[2023-11-24] MEDS: KETOROLAC 30 MG/ML VIAL (*BKC) IV PUSH ×2 (11:41→17:24)
[2023-11-24 14:00] VITALS: BP 153/91; PULSE 76; RESP 13; TEMP 36.4; O2SAT 99
[2023-11-24 19:41] VITALS: BP 148/76; PULSE 65; RESP 20; TEMP 36.5; O2SAT 98
[2023-11-24] MEDS: cloNIDine HCL 0.1 MG TABLET PO (20:28)
[2023-11-25] MEDS: KETOROLAC 30 MG/ML VIAL (*BKC) IV PUSH ×2 (01:58→11:50)
[2023-11-25] MEDS: PIPERACILLN/TAZ 3.375GM/NS50ML 3.375 GM/50 ML BAG IVPB ×2 (02:03→09:22)
[2023-11-25 04:15] VITALS: BP 160/77; PULSE 74; RESP 20; TEMP 36.7; O2SAT 95
[2023-11-25 06:17] LABS: Basophils Percent Auto 0.3 % (0.2-1.2); Eosinophils Absolute Auto 0.1 K/mm3 (0-0.3); Hematocrit 40.6 % (42.0-52.0); Hemoglobin 13.6 g/dL (14.0-18.0); Immature Granulocyte Absolute 0.04 K/mm3 (0.00-0.031); Immature Granulocyte Percent A 0.4 % (0-0.5); Lymphocytes Absolute Auto 2.13 K/mm3 (0.9-3.2); Mean Corpuscular HGB Conc 33.5 g/dl (32-36); Mean Corpuscular Volume 95.5 fl (80-100); Mean Platelet Volume 9.7 fl (7.4-10.4); Monocytes Absolute Auto 1.1 K/mm3 (0.1-0.6); Monocytes Percent Auto 11.3 % (2.6-8.5); Neutrophils Absolute Auto 6.3 K/mm3 (1.3-6.7); Platelet Count Result 214 k/mm3 (150-375); Red Blood Count 4.25 M/mm3 (4.6-6.20); White Blood Count 9.7 K/mm3 (4.5-10.0)
[2023-11-25 06:41] LABS: Anion Gap 3 mmol/L (4-12); Blood Urea Nitrogen 14 mg/dL (9-20); Calcium 8.4 mg/dL (8.4-10.2); Carbon Dioxide 28 mmol/L (22-30); Chloride 107 mmol/L (98-107); Estimated CRCL calculation 92 ml/min; Estimated Glomerular Filt Rate > 60; Glucose 95 mg/dL (65-110); Phosphorus 3.1 mg/dL (2.5-4.5); Potassium 3.8 mmol/L (3.4-5.0); Sodium 138 mmol/L (137-145)
[2023-11-25] MEDS: ROSUVASTATIN 10 MG TABLET PO (09:21)
[2023-11-25] MEDS: IRBESARTAN 150 MG TABLET 300 MG PO (09:21)
[2023-11-25] MEDS: PANTOPRAZOLE 40 MG TABLET PO (09:22)
[2023-11-25] MEDS: FLUoxetine HCL 20 MG CAPSULE BY MOUTH (09:22)
[2023-11-25] MEDS: hydroCHLOROthiazide 12.5 MG CAPSULE PO (09:22)
[2023-11-25] MEDS: ASPIRIN 81 MG ENTERIC TABLET PO (09:22)
[2023-11-25] MEDS: HYDROXYCHLOROQUINE SULFATE 200 MG TABLET PO (09:22)
[2023-11-25] MEDS: FOLIC ACID 1 MG TABLET PO (09:22)
--- NOTE | 2023-11-25 10:13 | PM.IMPN ---
Progress Note: A&P Assessment and Plan (1) Acute diverticulitis: Code(s): K57.92 - Diverticulitis of intestine, part unspecified, without perforation or abscess without bleeding Status: Acute (2) Borderline diabetes mellitus: Code(s): R73.03 - Prediabetes Status: Acute (3) Spondylosis, cervical: Code(s): M47.812 - Spondylosis without myelopathy or radiculopathy, cervical region Status: Acute (4) Partial thickness tear of left rotator cuff: Qualifiers: Rotator cuff tear trauma status: nontraumatic Qualified Code(s): M75.112 - Incomplete rotator cuff tear or rupture of left shoulder, not specified as traumatic Code(s): M75.112 - Incomplete rotator cuff tear or rupture of left shoulder, not specified as traumatic Status: Acute (5) Left shoulder pain: Code(s): M25.512 - Pain in left shoulder Status: Acute (6) Benign essential HTN: Code(s): I10 - Essential (primary) hypertension Status: Acute (7) Obesity: Code(s): E66.9 - Obesity, unspecified Status: Acute (8) Rheumatoid arthritis: Qualifiers: Rheumatoid arthritis location: unspecified site Rheumatoid factor presence: unspecified presence Qualified Code(s): M06.9 - Rheumatoid arthritis, unspecified Code(s): M06.9 - Rheumatoid arthritis, unspecified Status: Acute (9) Immunocompromised patient: Code(s): D89.9 - Disorder involving the immune mechanism, unspecified Status: Acute (10) HTN (hypertension): Qualifiers: Hypertension type: essential hypertension Qualified Code(s): I10 - Essential (primary) hypertension Code(s): I10 - Essential (primary) hypertension Status: Chronic (11) HLD (hyperlipidemia): Qualifiers: Hyperlipidemia type: unspecified Qualified Code(s): E78.5 - Hyperlipidemia, unspecified Code(s): E78.5 - Hyperlipidemia, unspecified Status: Chronic Plan Admit patient under full inpatient status Patient was diagnosed with diverticulitis of the base of appendix on abdominal CT scan Patient also has leukocytosis of 14.3- 9.7 today -monitor Patient started on IV Zosyn in the ED which will continue on the floor 2 L of IV hydration in the ER with normal saline- stopped last pm as adequate po intake Strict I's and O's General surgery consult given by a ED provider for evaluation and further recommendations- no intervention- zosyn,monitor, ok to advance diet to low fiber-ambulation DC planning home on oral antibiotics once patient is clinically stable and cleared by surgery for discharge Continue with home meds. Monitor patient closely while admitted. Holding Golimumab and methotrexate until ok with rheumatology to restart since current infection Repeat labs in a.m. Electrolyte replacement as per protocol. Patient will be monitored very closely on the floor. Time Spent With Patient Time with patient: 25 - 35 minutes Subjective Date/time seen: 11/25/23 10:13 Interval history: 68 y.o male with PMH anxiety HLD, HTN, Rheumatoid arthritis (on hydroxychloroquine, methotrexate, and leflunomide), admitted from ED for c/o abdominal pain x 3 days that is getting worse. LLQ pain- slowly moved to rt side. Accompanied by nausea, 1 episode of diarrhea. Workup was done in the ER which showed leukocytosis of 14.3 and diverticulitis at the base of the appendix with microperforation without any abscess. General surgery was consulted who plan to manage him conservatively on IV antibiotics. He is being admitted to the medical unit for IV antibiotics, further evaluation, monitoring. 11/23- pt is seen and examined. He was on clear liquid- ok to advance to low fiber per surgery (was seen today). Encouraged ambulation. He denies any n/v/d. No pain. Educational material is provided about low fiber diet. 11/24- seen and examined today. Doing well- tolerated diet increase well- no reports of n/v/d Review
--- NOTE | 2023-11-25 11:49 | PM.DS ---
DS: Admitting Diagnosis Discharge Date 11/24 Admitting Diagnosis abd pain DS: Discharge Diagnosis Discharge Diagnosis (1) Acute diverticulitis: Code(s): K57.92 - Diverticulitis of intestine, part unspecified, without perforation or abscess without bleeding Status: Acute (2) Borderline diabetes mellitus: Code(s): R73.03 - Prediabetes Status: Acute (3) Spondylosis, cervical: Code(s): M47.812 - Spondylosis without myelopathy or radiculopathy, cervical region Status: Acute (4) Partial thickness tear of left rotator cuff: Qualifiers: Rotator cuff tear trauma status: nontraumatic Qualified Code(s): M75.112 - Incomplete rotator cuff tear or rupture of left shoulder, not specified as traumatic Code(s): M75.112 - Incomplete rotator cuff tear or rupture of left shoulder, not specified as traumatic Status: Acute (5) Left shoulder pain: Code(s): M25.512 - Pain in left shoulder Status: Acute (6) Benign essential HTN: Code(s): I10 - Essential (primary) hypertension Status: Acute (7) Obesity: Code(s): E66.9 - Obesity, unspecified Status: Acute (8) Rheumatoid arthritis: Qualifiers: Rheumatoid arthritis location: unspecified site Rheumatoid factor presence: unspecified presence Qualified Code(s): M06.9 - Rheumatoid arthritis, unspecified Code(s): M06.9 - Rheumatoid arthritis, unspecified Status: Acute (9) Immunocompromised patient: Code(s): D89.9 - Disorder involving the immune mechanism, unspecified Status: Acute (10) HTN (hypertension): Qualifiers: Hypertension type: essential hypertension Qualified Code(s): I10 - Essential (primary) hypertension Code(s): I10 - Essential (primary) hypertension Status: Chronic (11) HLD (hyperlipidemia): Qualifiers: Hyperlipidemia type: unspecified Qualified Code(s): E78.5 - Hyperlipidemia, unspecified Code(s): E78.5 - Hyperlipidemia, unspecified Status: Chronic Plan FINAL DX: ACUTE DIVERTICULITIS Admit patient under full inpatient status Patient was diagnosed with diverticulitis of the base of appendix on abdominal CT scan Patient also has leukocytosis of 14.3- 9.7 today -monitor Patient started on IV Zosyn in the ED which will continue on the floor 2 L of IV hydration in the ER with normal saline- stopped last pm as adequate po intake Strict I's and O's General surgery consult given by a ED provider for evaluation and further recommendations- no intervention- zosyn,monitor, ok to advance diet to low fiber-ambulation DC planning home on oral antibiotics once patient is clinically stable and cleared by surgery for discharge Continue with home meds. Monitor patient closely while admitted. Holding Golimumab and methotrexate until ok with rheumatology to restart since current infection Repeat labs in a.m. Electrolyte replacement as per protocol. Patient will be monitored very closely on the floor. DS: Summary Hospital Course Hospital Course: 68 y.o male with PMH anxiety HLD, HTN, Rheumatoid arthritis (on hydroxychloroquine, methotrexate, and leflunomide), admitted from ED for c/o abdominal pain x 3 days that is getting worse. LLQ pain- slowly moved to rt side. Accompanied by nausea, 1 episode of diarrhea. Workup was done in the ER which showed leukocytosis of 14.3 and diverticulitis at the base of the appendix with microperforation without any abscess. General surgery was consulted who plan to manage him conservatively on IV antibiotics. He is being admitted to the medical unit for IV antibiotics, further evaluation, monitoring. 11/23- pt is seen and examined. He was on clear liquid- ok to advance to low fiber per surgery (was seen today). Encouraged ambulation. He denies any n/v/d. No pain. Educational material is provided about low fiber diet. OK TO D/C home today per surgery woth po antibiotics (sent per
--- NOTE | 2023-11-25 12:06 | PM.PNGS ---
Progress Note: A&P Assessment and Plan (1) Diverticulitis of colon with perforation: Code(s): K57.20 - Diverticulitis of large intestine with perforation and abscess without bleeding Status: Acute Assessment and Plan: exam benign, jaylene diet, ok to dc home c po abx and f/u in 2 wks Subjective Subjective Date/Time Seen: 11/25/23 12:06 Interval history: feels much improved, mild to no pain in RLQ/flank, jaylene low fiber diet Review of Systems Review of Systems: All systems reviewed & are unremarkable except as noted in HPI and below Exam Const: General: cooperative, comfortable and no acute distress Resp: Auscultation: clear to auscultation bilaterally Cardio: Rate: regular rate Rhythm: regular rhythm GI: Inspection: normal to inspection and non-distended GI Palp: Yes abdominal tenderness, Yes Soft to palpation, No Firmness to palpation present (GI), Yes Tenderness to palpation present (GI), No Guarding due to palpation present (GI) and No Rigid due to palpation Objective Data Vital Signs Vital Signs: Vital Signs - 24 hr 11/24/23 14:00 11/24/23 19:41 11/25/23 04:15 Temperature 36.4 C 36.5 C 36.7 C Pulse Rate 76 65 74 Respiratory Rate 13 20 20 Blood Pressure 153/91 H 148/76 H 160/77 H Pulse Oximetry 99 98 95 Intake/Output Intake/Output: Intake & Output 11/22/23 11/23/23 11/24/23 11/25/23 23:59 23:59 23:59 23:59 Intake Total 1050 3000 730 Output Total 500 Balance 1050 2500 730 Meds/Results Medications: Active Medications Generic Name Dose Route Start Last Admin Trade Name Freq PRN Reason Stop Dose Admin Acetaminophen 650 mg 11/23/23 22:44 Acetaminophen 325 Mg Tablet PO Q4H PRN Mild Pain (1-3) or Fever Hydrocodone Bitart/Acetaminophen 1 tab 11/24/23 06:08 Hydrocodone/Acetaminophen (*Crx) 5-325 Mg Tablet PO Q4H PRN Moderate Pain (4-6) Aspirin 81 mg 11/24/23 09:00 11/25/23 09:22 Aspirin 81 Mg Enteric Tablet PO 12/24/23 08:59 81 mg DAILY DEBORAH Administration Clonidine HCl 0.1 mg 11/24/23 21:00 11/24/23 20:28 Clonidine Hcl 0.1 Mg Tablet PO 0.1 mg HS DEBORAH Administration Fluoxetine HCl 20 mg 11/24/23 09:00 11/25/23 09:22 Fluoxetine Hcl 20 Mg Capsule BY MOUTH 20 mg DAILY DEBORAH Administration Folic Acid 1 mg 11/24/23 09:00 11/25/23 09:22 Folic Acid 1 Mg Tablet PO 1 mg DAILY DEBORAH Administration Hydrochlorothiazide 12.5 mg 11/24/23 09:00 11/25/23 09:22 Hydrochlorothiazide 12.5 Mg Capsule PO 12/24/23 08:59 12.5 mg DAILY DEBORAH Administration Hydroxychloroquine Sulfate 200 mg 11/24/23 09:00 11/25/23 09:22 Hydroxychloroquine Sulfate 200 Mg Tablet PO 200 mg BID DEBORAH Administration Piperacillin/Tazobactam/Dextrose 3.375 gm in 50 mls @ 100 mls/hr 11/24/23 03:00 11/25/23 09:52 Zosyn 3.375 Gm/Ns 50 Ml IVPB Infused Q6H [facility] Infusion Irbesartan 300 mg 11/24/23 09:00 11/25/23 09:21 Irbesartan 150 Mg Tablet PO 12/24/23 08:59 300 mg DAILY [facility] Administration Ketorolac Tromethamine 30 mg 11/24/23 10:10 11/25/23 11:50 Ketorolac 30 Mg/Ml Vial (*Bkc) IV PUSH 30 mg Q6HR DEBORAH Administration Methotrexate 25 mg 11/28/23 09:00 Methotrexate 2.5 Mg Tab (*Chemo) PO WEEKLY [facility] Miconazole Nitrate 1 applic 11/24/23 06:13 Miconazole Nitrate 2% Cream 30 Gm Tube TOPICAL BID PRN dryness Morphine Sulfate 2 mg 11/24/23 06:08 Morphine Sulfate (*Crx) 2 Mg/Ml Inj IV PUSH Q4H PRN Pain Rated 7-10 Ondansetron HCl 4 mg 11/23/23 22:44 Ondansetron Inj 4 Mg/2 Ml Vial IV PUSH Q4H PRN Nausea Pantoprazole Sodium 40 mg 11/24/23 09:00 11/25/23 09:22 Pantoprazole 40 Mg Tablet PO 12/24/23 08:59 40 mg DAILY [facility] Administration Rosuvastatin Calcium 10 mg 11/24/23 09:00 11/25/23 09:21 Rosuvastatin 10 Mg Tablet PO 10 mg DAILY DEBORAH Administration Radiology Results: ITS Impressions Abdomen/Pelvis CT 11/23/23 20:
--- NOTE | 2023-11-25 12:26 | P.DS_ITS ---
DS: Summary Time Spent with Patient Time attestation: Total time spent providing and/or coordinating discharge services: DS: Data Data Completed and Pending Labs on day of discharge: Labs from last 24 hours 11/25/23 05:58 WBC 9.7 RBC 4.25 L Hgb 13.6 L Hct 40.6 L MCV 95.5 MCH 32.0 MCHC 33.5 RDW 13.0 Plt Count 214 MPV 9.7 Immature Gran % (Auto) 0.4 Neut % (Auto) 65.0 Lymph % (Auto) 22.0 [place] % (Auto) 11.3 H Eos % (Auto) 1.0 Baso % (Auto) 0.3 Lymph # (Auto) 2.13 [place] # (Auto) 1.1 H Eos # (Auto) 0.1 Baso # (Auto) 0.0 Abs Immat Gran (auto) 0.04 H Absolute Neuts (auto) 6.3 Absolute Nucleated RBC 0.000 Nucleated RBC % 0.0 Sodium 138 Potassium 3.8 Chloride 107 Carbon Dioxide 28 Anion Gap 3 L BUN 14 D Creatinine 0.90 Estim Creat Clear Calc 92 Estimated GFR > 60 Glucose 95 Calcium 8.4 Phosphorus 3.1 Magnesium 2.0 Discharge Plan Discharge Consulting providers: Zaina Romero Patient Disposition: Home, Self-Care Diet: low fiber Patient Instructions: Antibiotic Form Stand Alone Forms: General Discharge Information Follow-up/Referrals: Zaina Romero MD [Physician] - 2 Weeks Discharge Medications: New metronidazole [Flagyl] 375 mg capsule 375 mg PO Q12H Qty: 14 0RF ciprofloxacin HCl [Cipro] 500 mg tablet 500 mg PO Q12H Qty: 14 0RF No Action econazole 1 % cream 1 applic topical DAILY PRN (Reason: dryness) Rx Instructions: Left and Right feet Simponi ARIA 12.5 mg/mL solution 12.5 mg IV Q2M Patient Comments: next due January 01 2024 methotrexate sodium 2.5 mg Tablet 2.5 mg PO WEEKLY Hold Instructions: Resume on 05/06/19. Hold methotrexate until infection cleared and seen by primary physician. Rx Instructions: pt takes TEN 2.5mg tablets on Wednesdays folic acid 1 mg tablet 1 mg PO DAILY hydroxychloroquine [Plaquenil] 200 mg Tablet 200 mg PO BID Hold Instructions: Resume on 05/06/19. Hold Plaquenil until infection resolved and seen by primary physician. esomeprazole magnesium [Nexium] 20 mg Capsule,Delayed Release(Dr/Ec) 20 mg PO DAILY clonidine HCl 0.1 mg tablet 0.1 mg PO HS rosuvastatin 10 mg tablet 10 mg PO DAILY sildenafil [Viagra] 100 mg tablet 100 mg PO DAILY PRN (Reason: sexual activity) Qty: 30 0RF Rx Instructions: administer 30 minutes to 4 hours before activity aspirin 81 mg capsule 81 mg PO DAILY Qty: 90 0RF irbesartan-hydrochlorothiazide 300-12.5 mg tablet 1 tablet PO DAILY Qty: 90 1RF fluoxetine 20 mg capsule See Rx Instructions .ROUTE .COMPLEX Qty: 90 1RF Dose Instruction: TAKE 1 CAPSULE BY MOUTH DAILY Rx Instructions: TAKE 1 CAPSULE BY MOUTH DAILY Date of admission: 11/24/23 06:08 Primary Care Provider: Bhargavi Tena Admitting Provider: Tee Del Real Attending physician on admission: Tee Del Real Condition: Stable
== END 2023-11-25 13:05 | disposition home or self-care (01) | DRG 392 ==
LOC: ANHED 19:51 → ANH3MEDSUR 23:41
PROVIDERS: Emergency Medicine; Admitting Provider Family Medicine; Emergency Provider Physician Assistant; PCP Family Medicine; Visit Provider Nurse Practitioner
DX: K57.32 Diverticulitis of large intestine without perforation or abscess without bleeding (principal); E78.5 Hyperlipidemia, unspecified; E11.9 Type 2 diabetes mellitus without complications; E66.9 Obesity, unspecified; F41.9 Anxiety disorder, unspecified; H91.90 Unspecified hearing loss, unspecified ear; I10 Essential (primary) hypertension; M06.9 Rheumatoid arthritis, unspecified; Z86.16 Personal history of COVID-19; Z87.891 Personal history of nicotine dependence; Z79.82 Long term (current) use of aspirin
CPT/HCPCS: 36415; 74177; 80048; 80053; 81001; 83690; 83735; 84100; 85025; 96361; 96365; 96375; 96376; 99212; 99285; A9270; G0378; G0463; J1170; J1885; J2405; J2543; J7030; Q9967

== ENCOUNTER 2024-01-23 01:58 | Day surgery (SDC) | payer MEDICARE, OTHER, SELFPAY ==
[2024-01-01 14:00] VITALS: BMI 35.2
[2024-01-23 13:30] VITALS: BP 136/89; PULSE 83; RESP 17; TEMP 36.6; O2SAT 98
[2024-01-23 13:46] LABS: Glucose Point of Care 103 mg/dl (65-105)
[2024-01-23] MEDS: LACTATED RINGERS 1,000 ML 150 ML IV CONT (13:50)
--- NOTE | 2024-01-23 14:17 | PM.HPGS ---
History of Present Illness History of Present Illness Consent: Risks, benefits, and alternatives have been discussed and questions answered. Patient agrees to proceed with procedure. Chief complaint: Diverticulitis of large intestine w/o perforation Narrative: Elfego Fleming is a 68 year old male with recent hospitalization for diverticulitis in cecum, last colonoscopy 8 years ago Review of Systems Review of Systems: All systems reviewed & are unremarkable except as noted in HPI and below PMFSH Past Medical History Medical History (Updated 01/23/24 @ 14:20 by Rachid Lindsay MD) Acute myringitis, right ear Anxiety Cleft palate COVID-19 virus infection Diet-controlled diabetes mellitus Hearing loss of both ears Hernia x3 History of diverticulitis of colon HLD (hyperlipidemia) HTN (hypertension) Immunocompromised patient LPRD (laryngopharyngeal reflux disease) PND (post-nasal drip) Pneumonia Rheumatoid arthritis On hydroxychloroquine, methotrexate, and leflunomide. Sacro-iliac pain Wears hearing aid Wheezing Surgical History Surgical History History of ear surgery History of hernia repair X3. History of repair of congenital cleft palate History of repair of left rotator cuff (~06/05/23) w/Subacromial Decompression Status post laser lithotripsy of ureteral calculus Family History Family History Mother Dementia Anxiety Hypercholesteremia Hypertension Father Heart attack Hypercholesteremia Hypertension Lung cancer Sibling Kidney disease Social History Social History Social History: The patient is and lives with his in [place]. 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 He designates his , Toyin, as his surrogate decision maker and he wishes to be a full code. He has a 15 pack year smoking history and quit 1993. He denies alcohol and drug use. Smoking packs per day: 2 Smoking cigarettes per day: 40.0 Years smoked: 17 Smoking pack-years: 34.00 Smoking status: Former smoker Tobacco type: cigarettes Second hand tobacco smoke exposure: No Smoking end date: 06/18/93 Alcohol intake: never Substance use: never Substance use type: does not use Do You Feel Safe in your Home?: Yes Lack of Transportation: No Lack of Food: Never True Current Housing: I Have Housing Concerned About Future Housing: No Difficulty Paying Gas/Electric Bills: No Difficulty Paying for Meds: No Currently Unemployed: No Education: Bachelor's Degree Difficulty w/ Childcare or Family Care: No Living arrangements: with family Occupation/Education: retired Gender identity (if verbalized by the patient): Male Sexual Orientation (if Verbalized by the Patient): Straight or Heterosexual Spiritual care concerns: No Meds Home Medications and Allergies Home Medications Medication Instructions Recorded Confirmed Type esomeprazole magnesium 20 mg 20 mg PO DAILY 04/22/19 01/01/24 History capsule,delayed release (Nexium) folic acid 1 mg tablet 1 mg PO DAILY 04/22/19 01/01/24 History hydroxychloroquine 200 mg tablet 200 mg PO BID 04/22/19 01/01/24 History (Plaquenil) methotrexate sodium 2.5 mg tablet 2.5 mg PO WEEKLY 04/22/19 01/01/24 History econazole 1 % topical cream 1 applic topical DAILY PRN dryness 08/26/21 01/01/24 History golimumab 12.5 mg/mL intravenous 12.5 mg IV Q2M 02/07/23 01/01/24 History solution (Simponi ARIA) irbesartan 300 1 tablet PO DAILY #90 tabs 10/05/23 01/01/24 Rx mg-hydrochlorothiazide 12.5 mg tablet fluoxetine 20 mg capsule See Rx Instructions .Route 10/08/23 01/01/24 Rx .COMPLEX #90 caps rosuvastatin 10 mg tablet 10 mg PO DAILY 11/24/23 01/01/24 History aspirin 81 mg capsule 81 mg PO D
--- NOTE | 2024-01-23 14:20 | WPDANESEPPF ---
Anes - Initial Pre Proc Eval Procedure: Operation Date: 01/23/24 14:30 Proposed Procedures p Colonoscopy - Rachid Lindsay MD Date/Time: 01/23/24 14:20 Surgeon: Rachid Lindsay MD Pre Op Diagnosis: Diverticulitis of large intestine w/o perforation Patient Data Age: 68 Gender: M Height: 1.83 m Weight: 118.1 kg Last Vital Signs Temp 36.6 C 01/23/24 13:30 Pulse 83 01/23/24 13:30 Resp 17 01/23/24 13:30 BP 136/89 01/23/24 13:30 Pulse Ox 98 01/23/24 13:30 O2 Del Method Room Air 01/23/24 13:30 Allergies Allergy/AdvReac Type Severity Reaction Status Date / Time No Known Allergies Allergy Verified 01/01/24 13:56 Home Medications Medication Instructions Recorded Confirmed Type esomeprazole magnesium 20 mg 20 mg PO DAILY 04/22/19 01/01/24 History capsule,delayed release (Nexium) folic acid 1 mg tablet 1 mg PO DAILY 04/22/19 01/01/24 History hydroxychloroquine 200 mg tablet 200 mg PO BID 04/22/19 01/01/24 History (Plaquenil) methotrexate sodium 2.5 mg tablet 2.5 mg PO WEEKLY 04/22/19 01/01/24 History econazole 1 % topical cream 1 applic topical DAILY PRN dryness 08/26/21 01/01/24 History golimumab 12.5 mg/mL intravenous 12.5 mg IV Q2M 02/07/23 01/01/24 History solution (Simponi ARIA) irbesartan 300 1 tablet PO DAILY #90 tabs 10/05/23 01/01/24 Rx mg-hydrochlorothiazide 12.5 mg tablet fluoxetine 20 mg capsule See Rx Instructions .Route 10/08/23 01/01/24 Rx .COMPLEX #90 caps rosuvastatin 10 mg tablet 10 mg PO DAILY 11/24/23 01/01/24 History aspirin 81 mg capsule 81 mg PO DAILY #90 caps 12/29/23 01/01/24 Rx clonidine HCl 0.1 mg tablet 0.1 mg PO HS #90 tabs 12/29/23 01/01/24 Rx sildenafil 100 mg tablet (Viagra) 100 mg PO DAILY PRN sexual 12/31/23 01/01/24 Rx activity #30 tabs Laboratory Tests 01/23/24 13:44 POC Capillary Glucose 103 mg/dl (65-105) Patient hx anesthesia problems: none Family hx anesthesia problems: none Results Review: All pre-operative results and documents have been reviewed as part of the pre-operative evaluation. [facility] Past Medical History Medical History Acute myringitis, right ear Anxiety Cleft palate COVID-19 virus infection Diet-controlled diabetes mellitus Hearing loss of both ears Hernia x3 HLD (hyperlipidemia) HTN (hypertension) Immunocompromised patient LPRD (laryngopharyngeal reflux disease) PND (post-nasal drip) Pneumonia Rheumatoid arthritis On hydroxychloroquine, methotrexate, and leflunomide. Sacro-iliac pain Wears hearing aid Wheezing Surgical History Surgical History History of ear surgery History of hernia repair X3. History of repair of congenital cleft palate History of repair of left rotator cuff (~06/05/23) w/Subacromial Decompression Status post laser lithotripsy of ureteral calculus Family History Family History Mother Dementia Anxiety Hypercholesteremia Hypertension Father Heart attack Hypercholesteremia Hypertension Lung cancer Sibling Kidney disease Social History Social History Social History: The patient is and lives with his in [place]. 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 He designates his , Toyin, as his surrogate decision maker and he wishes to be a full code. He has a 15 pack year smoking history and quit 1993. He denies alcohol and drug use. Smoking packs per day: 2 Smoking cigarettes per day: 40.0 Years smoked: 17 Smoking pack-years: 34.00 Smoking status: Former smoker Tobacco type: cigarettes Second hand tobacco smoke exposure: No Smoking end date: 06/18/93 Alcohol intake: never Substance use: never Subs
[2024-01-23 14:34] VITALS: BP 137/91; PULSE 80; RESP 17; O2SAT 98
[2024-01-23 14:44] VITALS: BP 146/89; PULSE 70; RESP 18; O2SAT 98
[2024-01-23 14:54] VITALS: BP 166/95; PULSE 67; RESP 18; O2SAT 97
== END 2024-01-23 15:02 | disposition home or self-care (01) ==
PROVIDERS: PCP Family Medicine; Visit Provider Internal Medicine Gastroenterology
PROC: 0DJD8ZZ Inspection of Lower Intestinal Tract, Via Natural or Artificial Opening Endoscopic (ICD-10-PCS; CPT 45378; principal; 2024-01-23 14:30)
DX: Z09 Encounter for follow-up examination after completed treatment for conditions other than malignant neoplasm (principal); K57.20 Diverticulitis of large intestine with perforation and abscess without bleeding; Z87.19 Personal history of other diseases of the digestive system; E11.9 Type 2 diabetes mellitus without complications; I10 Essential (primary) hypertension; E78.5 Hyperlipidemia, unspecified; M06.9 Rheumatoid arthritis, unspecified; F41.9 Anxiety disorder, unspecified; Z87.891 Personal history of nicotine dependence; Z79.620 Long term (current) use of immunosuppressive biologic; Z79.631 Long term (current) use of antimetabolite agent; Z79.82 Long term (current) use of aspirin; E66.9 Obesity, unspecified; Z68.35 Body mass index [BMI] 35.0-35.9, adult
CPT/HCPCS: 45378; 82948; J2001; J2704; J7120

== ENCOUNTER 2024-03-04 13:05 | Outpatient (CLI) | payer MEDICARE, OTHER, SELFPAY ==
--- NOTE | ~2024-03-04 | US_ITS ---
EXAMINATION: US soft tissue groin LT DATE: 03/04/2024 13:31 INDICATION: K40.90 - Unilateral inguinal hernia, without obstruction. Pain across the lower abdomen a nd areas of scar from prior inguinal hernia repair in 2011. TECHNIQUE: Grayscale and Doppler ultrasound images of the left groin were obtained. COMPARISON: CT abdomen pelvis 11/23/2023 FINDINGS: The area of clinical concern in the left groin was sonographically interrogated revealing n o solid or cystic mass. Scattered areas of mild shadowing in the subcutaneous fat, likely representin g scar. IMPRESSION: No sonographic abnormality detected in the area of clinical concern. Specifically, no sonographic rolando dence of inguinal herniation. Reviewed, dictated and finalized at location K. IMPRESSION: No sonographic abnormality detected in the area of clinical concern. Specifical ly, no sonographic evidence of inguinal herniation.
== END 2024-03-04 13:06 | disposition home or self-care (01) ==
LOC: MICIMG 13:06
PROVIDERS: PCP Family Medicine; Visit Provider Physician Assistant
DX: K40.90 Unilateral inguinal hernia, without obstruction or gangrene, not specified as recurrent (principal); R10.32 Left lower quadrant pain
CPT/HCPCS: 76882

== ENCOUNTER 2024-05-23 06:42 | Emergency (ER) | payer MEDICARE, OTHER, SELFPAY ==
--- NOTE | ~2024-05-23 | CT_ITS ---
EXAMINATION: CT abdomen pelvis w con DATE: 05/23/2024 07:53 INDICATION: Left lower quadrant abdominal pain. TECHNIQUE: Computed tomography (CT) of the abdomen and pelvis was performed with 100 mL Omnipaque 350 intravenous contrast. Automated exposure control and iterative reconstruction technique were employe d. The dose-length product was 1452.61 mGy-cm. COMPARISON: CT abdomen and pelvis 11/23/23, 12/23/18 FINDINGS: The visualized portions of the lung bases demonstrate mild atelectasis. No pleural effusion . The heart size is normal. There are coronary artery calcifications. No pericardial effusion. The li eleni, gallbladder, and spleen are normal. There is fat stranding around the pancreas, consistent with acute interstitial pancreatitis. 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 The adrenal glands are normal. There are cysts in the kidneys measuring up to 3.8 cm on the left. The prostate is severely enlarged. There is diverticulosis of th e colon without evidence of diverticulitis. The appendix is normal. There are no dilated loops of bow el. There are no pathologically enlarged lymph nodes. There is no free intraperitoneal fluid. There i s mild thoracic and lumbar spondylosis. There is mild chronic anterior wedging of T11 and T12 vertebr al bodies. IMPRESSION: 1. Acute interstitial pancreatitis. Reviewed, dictated and finalized at location A. [employer]
[2024-05-23 06:47] VITALS: BP 176/89; PULSE 79; RESP 18; TEMP 36.8; O2SAT 98
[2024-05-23 07:05] LABS: Basophils Absolute Auto 0.1 K/mm3 (0.0-0.1); Basophils Percent Auto 0.5 % (0.2-1.2); Eosinophils Absolute Auto 0.1 K/mm3 (0-0.3); Eosinophils Percent Auto 0.8 % (0-4.4); Hematocrit 45.7 % (42.0-52.0); Hemoglobin 15.4 g/dL (14.0-18.0); Immature Granulocyte Absolute 0.04 K/mm3 (0.00-0.031); Immature Granulocyte Percent A 0.4 % (0-0.5); Lymphocytes Absolute Auto 2.45 K/mm3 (0.9-3.2); Lymphocytes Percent Auto 22.1 % (18.3-44.2); Mean Corpuscular HGB Conc 33.7 g/dl (32-36); Mean Corpuscular Hemoglobin 31.4 pg (26-34); Mean Corpuscular Volume 93.3 fl (80-100); Mean Platelet Volume 9.7 fl (7.4-10.4); Monocytes Percent Auto 8.9 % (2.6-8.5); Neutrophils Absolute Auto 7.5 K/mm3 (1.3-6.7); Neutrophils Percent Auto 67.3 % (45.5-73.1); Platelet Count Result 255 k/mm3 (150-375); Red Cell Distribution Width 13.3 % (11.5-14.5); White Blood Count 11.1 K/mm3 (4.5-10.0)
[2024-05-23 07:15] VITALS: BP 137/91; PULSE 72; RESP 18; O2SAT 100
[2024-05-23 07:16] LABS: Alanine Aminotransferase 40 U/L (6-50); Albumin Level 4.4 g/dL (3.5-5.1); Alkaline Phosphatase 96 U/L (38-126); Anion Gap 6 mmol/L (4-12); Aspartate Amino Transferase 36 U/L (17-59); Bilirubin,Total 0.9 mg/dL (0.2-1.3); Blood Urea Nitrogen 14 mg/dL (9-20); Calcium 9.1 mg/dL (8.4-10.2); Carbon Dioxide 29 mmol/L (22-30); Chloride 104 mmol/L (98-107); Estimated CRCL calculation 106 ml/min; Estimated Glomerular Filt Rate > 60; Glucose 174 mg/dL (65-110); Lipase 28 U/L (23-300); Potassium 4.1 mmol/L (3.4-5.0); Sodium 139 mmol/L (137-145)
[2024-05-23 07:20] LABS: Add Urine Microscopic? YES; Appearance Urine Clear (Clear); Bacteria Urine None Seen /hpf; Bilirubin Urine Negative (Negative); Blood Urine Negative (Negative); Color Urine Yellow (Yellow); Glucose Urine UA Negative (Negative); Ketones Urine Negative (Negative); Leukocyte Esterase Ur Negative LEU/UL (Negative); Nitrate Urine Negative (Negative); Non Pathogenic Casts 0-2; Protein Urine Trace mg/dL (Negative); RBC Urine 0-2 /hpf (0-2); Specific Grav Ur 1.026 (1.001-1.035); Squamous Epithelial Cell Urine None Seen /hpf (Few); Urobilinogen Urine 0.2 mg/dL (<2.0); WBC Urine 0-5 /hpf (0-3)
--- NOTE | 2024-05-23 07:27 | ED_ITS ---
HPI - Abdominal Pain General Chief Complaint: Abdominal Pain Stated Complaint: diverticulitis flare up Time Seen by Provider: 05/23/24 07:02 Source: patient and family Mode of arrival: ambulatory Limitations: no limitations History of Present Illness HPI narrative: Patient presents with left sided/left lower quadrant abdominal pain that started yesterday essentially while patient was at rest. He is concerned for either diverticulitis flare or kidney stone. He had a diverticulitis flare in January and had a post flare colonoscopy performed here at [facility] although he does not recall the name of his aerial survey technician. He had a kidney stone on the right side previously although this was years ago. It did require surgical intervention with Dr. Sinha (spelling?) And now he follows with ISABELLA Johnston as a urologist. This episode is associated with nausea but no vomiting. He denies any fevers or chills. His last oral intake was 8:00 p.m.. He does not have an appetite. His last bowel movement was at 3:00 a.m. he denies any diarrhea, constipation, or blood. He rates the pain 6/10 in severity. He states that the pain radiates to his back but not into his groin. He is starting to have pain on the right side as well. Other than the surgical intervention for kidney stone he denies any other abdominal surgeries. He took Tylenol with his last dose at 4:00 a.m. but states it did not help. Related Data Home Medications Medication Instructions Recorded Confirmed folic acid 1 mg tablet 1 mg PO DAILY 04/22/19 03/28/24 hydroxychloroquine 200 mg tablet 200 mg PO BID 04/22/19 03/28/24 (Plaquenil) methotrexate sodium 2.5 mg tablet 2.5 mg PO WEEKLY 04/22/19 03/28/24 econazole 1 % topical cream 1 applic topical DAILY PRN dryness 08/26/21 03/28/24 golimumab 12.5 mg/mL intravenous 12.5 mg IV Q2M 02/07/23 03/28/24 solution (Simponi ARIA) Allergies Allergy/AdvReac Type Severity Reaction Status Date / Time No Known Allergies Allergy Verified 05/23/24 06:54 [facility] Past Medical History Medical History Acute diverticulitis Acute myringitis, right ear Anxiety Cleft palate Community acquired pneumonia COVID-19 virus infection Diet-controlled diabetes mellitus Diverticulitis of colon with perforation January 2024 DVT prophylaxis Dysphagia Failure of outpatient treatment Hearing loss of both ears Hernia x3 History of diverticulitis of colon HLD (hyperlipidemia) HTN (hypertension) Immunocompromised patient Kidney stone on right side Left arm pain Left shoulder pain LPRD (laryngopharyngeal reflux disease) Orthopedic aftercare Partial thickness tear of left rotator cuff PND (post-nasal drip) Pneumonia Rheumatoid arthritis On hydroxychloroquine, methotrexate, and leflunomide. Sacro-iliac pain Wears hearing aid Wheezing Surgical History Surgical History History of ear surgery History of hernia repair X3. History of repair of congenital cleft palate History of repair of left rotator cuff (~06/05/23) w/Subacromial Decompression Status post laser lithotripsy of ureteral calculus Family History Family History Mother Dementia Anxiety Hypercholesteremia Hypertension Father Heart attack Hypercholesteremia Hypertension Lung cancer Sibling Kidney disease Social History Social History Social History: The patient is and lives with his in [place]. 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 He designates his , Toyin, as his surrogate decision maker and he wishes to be a full code. He has a 15 pack year smoking history and quit 1993. He denies alcohol and drug use. Smoking packs per day: 2 Smoking cigarettes per day: 40.0 Years smoked: 17 Smoking pack-years: 34.00 Smoking status: Former smoker Tobacco type: cigarettes Second hand tobacco smoke exposure: No Smoking end date: 06/18/93 Alcohol intake: never Substance use: never Substance use type: does not use Do You Feel Safe in your Home?: Yes Lack of Transportation: No Lack of Food: Never True Current Housing: I Have Housing Concerned About Future Housing: No Difficulty Paying Gas/Electric Bills: No Difficulty Paying for Meds: No Currently Unemployed: No Education: Bachelor's Degree Difficulty w/ Childcare or Family Care: No Living arrangements: with family Occupation/Education: retired Gender identity (if verbalized by the patient): Male Sexual Orientation (if Verbalized by the Patient): Straight or Heterosexual Spiritual care concerns: No Exam Narrative: GENERAL: Well-appearing, well-nourished, and in no acute distress. HEAD: Normocephalic, atraumatic. EYES: Non injected, non icteric ENT: Nares clear, no rhinorrhea or epistaxis. NECK: Supple. CHEST: Speaking in full sentences. No respiratory distress. HEART: Regular rate and rhythm. . ABDOMEN: Soft, nondistended. Mild tenderness to palpation in the left lower quadrant (and less so but also RLQ). No rigidity or guarding. Not peritoneal. EXTREMITIES: Normal range of motion. No lower extremity edema. SKIN: Warm, dry, no rash. NEURO: No focal deficits. Alert and oriented x3. PSYCH: Normal mood and affect. Course Vital Signs Vital signs: Vital Signs Temperature 98.3 F 05/23/24 06:47 Pulse Rate 79 05/23/24 06:47 Respiratory Rate 18 05/23/24 06:47 Blood Pressure 176/89 H 05/23/24 06:47 Pulse Oximetry 98 05/23/24 06:47 Oxygen Delivery Room Air 05/23/24 06:47 Temperature 98.3 F 05/23/24 06:47 Pulse Rate 73 05/23/24 08:30 Respiratory Rate 18 05/23/24 08:30 Blood Pressure 110/72 05/23/24 08:30 Pulse Oximetry 96 05/23/24 08:30 Oxygen Delivery Room Air 05/23/24 06:47 MDM - Abdominal Pain MDM Narrative Medical decision making narrative: Patient presents with left-sided/left lower quadrant abdominal pain associated with nausea and radiating to his back. In the emergency department he is afebrile with vital signs notable for hypertension. Per review of EMR, patient had a diverticulitis episode complicated by perforation previously. CT imaging demonstrates interstitial pancreatitis although this is not the location of patient's pain and patient has a normal lipase. 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 Also diverticulosis w/o diverticulitis. Patient is reassessed at 9:10 a.m. we did discuss the findings of his CT scan which did not demonstrate diverticulitis or kidney stone. We discussed that this CT scan showed possible interstitial pancreatitis however patient's presentation and labs are not consistent with this. He does state that he was having some epigastric pain earlier. However, he is feeling much better at this time and we discussed that is reasonable to be discharged home with pain medications, antiemetics, and strict emergency department return precautions. He verifies understanding. He does have a primary care physician although they are retiring this month. We discussed adequate dosing of [id number] analgesics medications and that acetaminophen and NSAIDs are safe to take together. Patient denies having any contraindications to being able to take either/both. Given prescriptions for these as well as Bentyl and ODT Zofran. In sum, This patient presents with abdominal pain or unclear etiology. A CT scan was performed to evaluate for potential causes of the abdominal pain, however, neither the clinical exam nor the CT has identified an emergent etiology for the abdominal pain. Specifically, given the benign exam, the laboratory studies, and unremarkable CT, I have a very low suspicion for appendicitis, ischemic bowel, bowel perforation, or any other life threatening disease. I have discussed with the patient the level of uncertainty with undifferentiated abdominal pain and clearly explained the need to follow-up as noted on the discharge instructions, or return to the Emergency Department immediately if the pain worsens, develops fever, persistent and uncontrolled vomiting, or for any new symptoms or concerns. Stable for discharge and agreeable with the plan. Provided contact info for a PCP given his is retiring soon. Differential Diagnosis Differential diagnosis: Likely abdominal pain, calculus of kidney, constipation, diverticulitis and small bowel obstruction Medical Records Attestation: I reviewed the patient's medical records. Lab Data Attestation: I reviewed the patient's lab results. Lab results narrative: Mild leukocytosis. Hyperglycemia without anion gap acidosis. Per review of the EMR patient has diet-controlled diabetes mellitus. 05/23/24 06:55 05/23/24 06:55 Labs: Lab Results 05/23/24 Range/Units 06:55 WBC 11.1 H (4.5-10.0) K/mm3 RBC 4.90 (4.6-6.20) M/mm3 Hgb 15.4 (14.0-18.0) g/dL Hct 45.7 (42.0-52.0) % MCV 93.3 (80-100) fl MCH 31.4 (26-34) pg MCHC 33.7 (32-36) g/dl RDW 13.3 (11.5-14.5) % Plt Count 255 (150-375) k/mm3 MPV 9.7 (7.4-10.4) fl Immature Gran % (Auto) 0.4 (0-0.5) % Neut % (Auto) 67.3 (45.5-73.1) % Lymph % (Auto) 22.1 (18.3-44.2) % [place] % (Auto) 8.9 H (2.6-8.5) % Eos % (Auto) 0.8 (0-4.4) % Baso % (Auto) 0.5 (0.2-1.2) % Lymph # (Auto) 2.45 (0.9-3.2) K/mm3 [place] # (Auto) 1.0 H (0.1-0.6) K/mm3 Eos # (Auto) 0.1 (0-0.3) K/mm3 Baso # (Auto) 0.1 (0.0-0.1) K/mm3 Abs Immat Gran (auto) 0.04 H (0.00-0.031) K/mm3 Absolute Neuts (auto) 7.5 H (1.3-6.7) K/mm3 Absolute Nucleated RBC 0.000 (0.0-0.012) K/mm3 Nucleated RBC % 0.0 (0.0-0.2) % Sodium 139 (137-145) mmol/L Potassium 4.1 (3.4-5.0) mmol/L Chloride 104 (98-107) mmol/L Carbon Dioxide 29 (22-30) mmol/L Anion Gap 6 (4-12) mmol/L BUN 14 (9-20) mg/dL Creatinine 0.80 (0.7-1.3) mg/dL Estim Creat Clear Calc 106 ml/min Estimated GFR > 60 (59 - ) Glucose 174 H (65-110) mg/dL Calcium 9.1 (8.4-10.2) mg/dL Total Bilirubin 0.9 (0.2-1.3) mg/dL AST 36 (17-59) U/L ALT 40 (6-50) U/L Alkaline Phosphatase 96 (38-126) U/L Total Protein 8.0 (6.3-8.2) g/dL Albumin 4.4 (3.5-5.1) g/dL Lipase 28 (23-300) U/L Urine Color Yellow (Yellow) Urine Appearance Clear (Clear) Urine pH 7.0 (5.0-9.0) Ur Specific [place] 1.026 (1.001-1.035) Urine Protein Trace (Negative) mg/dL Urine Glucose (UA) Negative (Negative) mg/dL Urine Ketones Negative (Negative) mg/dL Ur Blood (Man) Negative (Negative) Urine Nitrate Negative (Negative) Urine Bilirubin Negative (Negative) Urine Urobilinogen 0.2 (<2.0) mg/dL Leukocyte Esterase Rfl Negative (Negative) KIM/UL Urine RBC 0-2 (0-2) /hpf Urine WBC 0-5 (0-3) /hpf Ur Squamous Epith Cells None seen (Few) /hpf Urine Bacteria None seen /hpf Urine Casts 0-2 Imaging Data Attestation: I personally reviewed and interpreted this imaging study as follows: My impression: Normal on my independent interpretation. No significant stool burden in the left lower quadrant or rectum Radiologist's impression: ITS Impressions Abdomen/Pelvis CT 05/23/24 08:26 IMPRESSION: 1. Acute interstitial pancreatitis. Discharge Plan Discharge Clinical Impression: Abdominal pain, LLQ, Leukocytosis, Hyperglycemia, Interstitial pancreatitis, Diverticulosis Patient Disposition: Home, Self-Care Condition: Stable Instructions: Antibiotic Form, Pancreatitis (ED), Diverticulosis (DC), Abdominal Pain (ED), Diabetic Hyperglycemia (ED), Mediterranean Diet (DC) Additional Instructions: Acetaminophen/Tylenol (maximum 4000 mg per day) is safe to take with NSAIDs (ibuprofen/Motrin) for pain relief, as we discussed. You can also use the dicyclomine/Bentyl for abdominal pain/cramping. If you continue to have nausea or vomiting you can also use the oral disintegrating tablets of ondansetron/Zofran that a been prescribed. Follow-up with primary care physician. Given that your primary care physician is retiring, if you need to establish with someone new the name of the doctor is listed below. Return to the Emergency Department immediately if the pain worsens, develops fever, persistent and uncontrolled vomiting, or for any new symptoms or concerns. Prescriptions: New ibuprofen 600 mg tablet 600 mg PO TID PRN (Reason: pain) Qty: 30 0RF ondansetron 4 mg tablet,disintegrating 4 mg PO Q8H PRN (Reason: nausea and vomiting) Qty: 7 0RF acetaminophen 500 mg capsule 1,000 mg PO Q6H PRN (Reason: pain) Qty: 30 0RF dicyclomine 10 mg capsule 10 mg PO BID PRN (Reason: abdominal pain) Qty: 10 0RF No Action econazole 1 % cream 1 applic topical DAILY PRN (Reason: dryness) Rx Instructions: Left and Right feet Simponi ARIA 12.5 mg/mL solution 12.5 mg IV Q2M Hold Instructions: Resume on 12/11/23. hold until ok to resumed given to you per rheumatology Patient Comments: next due January 01 2024 ipratropium bromide 21 mcg (0.03 %) spray,non-aerosol 2 spray intranasal BID Qty: 30 0RF Rx Instructions: administer into each nostril fluoxetine 20 mg capsule See Rx Instructions .ROUTE .COMPLEX Qty: 90 1RF Dose Instruction: TAKE 1 CAPSULE BY MOUTH DAILY Rx Instructions: TAKE 1 CAPSULE BY MOUTH DAILY rosuvastatin 10 mg tablet 10 mg PO DAILY Qty: 90 1RF omeprazole 40 mg capsule,delayed release(DR/EC) 40 mg PO DAILY Qty: 90 0RF methotrexate sodium 2.5 mg Tablet 2.5 mg PO WEEKLY Hold Instructions: Resume on 12/12/23. hold until ok to resume given to you per rheumatology Rx Instructions: pt takes TEN 2.5mg tablets on Wednesdays folic acid 1 mg tablet 1 mg PO DAILY hydroxychloroquine [Plaquenil] 200 mg Tablet 200 mg PO BID Hold Instructions: Resume on 05/06/19. Hold Plaquenil until infection resolved and seen by primary physician. aspirin 81 mg capsule 81 mg PO DAILY Qty: 90 1RF sildenafil [Viagra] 100 mg tablet 100 mg PO DAILY PRN (Reason: sexual activity) Qty: 30 0RF Rx Instructions: administer 30 minutes to 4 hours before activity irbesartan-hydrochlorothiazide 300-12.5 mg tablet 1 tablet PO DAILY Qty: 90 1RF trazodone 50 mg tablet 50 mg PO QHS Qty: 60 0RF clonidine HCl 0.1 mg tablet 0.1 mg PO BID Qty: 180 1RF amlodipine 5 mg tablet See Rx Instructions .ROUTE .COMPLEX Qty: 90 0RF Dose Instruction: TAKE 1 TABLET BY MOUTH EVERY DAY AT BEDTIME Rx Instructions: TAKE 1 TABLET BY MOUTH EVERY DAY AT BEDTIME Follow-up/Referrals: Alex Haile MD [Physician] - (Family practice) Bhargavi Tena MD [Primary Care Provider] - Stand Alone Forms: Work/School Release IP Time of Disposition: 09:23
[2024-05-23 07:55] VITALS: BP 166/86; PULSE 73; RESP 20; O2SAT 99
[2024-05-23] MEDS: MORPHINE SULFATE (*CRX) 4 MG/ML INJ 8 MG IV PUSH (07:58)
[2024-05-23] MEDS: ONDANSETRON INJ 4 MG/2 ML VIAL IV PUSH (07:58)
[2024-05-23 08:30] VITALS: BP 110/72; PULSE 73; RESP 18; O2SAT 96
[2024-05-23] MEDS: DICYCLOMINE HCL 10 MG CAPSULE PO (09:52)
[2024-05-23 10:19] VITALS: BP 127/81; PULSE 71; RESP 18; O2SAT 96
[2024-05-23 11:13] VITALS: BP 110/78; PULSE 69; RESP 20; O2SAT 97
== END 2024-05-23 11:15 | disposition home or self-care (01) ==
PROVIDERS: Emergency Medicine; Emergency Provider Student in an Organized Health Care Education/Training Program; PCP Family Medicine
DX: R10.32 Left lower quadrant pain (principal); E11.65 Type 2 diabetes mellitus with hyperglycemia; K86.1 Other chronic pancreatitis; K57.90 Diverticulosis of intestine, part unspecified, without perforation or abscess without bleeding; E78.5 Hyperlipidemia, unspecified; I10 Essential (primary) hypertension; M06.9 Rheumatoid arthritis, unspecified; Z87.891 Personal history of nicotine dependence
CPT/HCPCS: 36415; 74177; 80053; 81001; 83690; 85025; 96374; 96375; 99284; A9270; J2270; J2405; Q9967

== ENCOUNTER 2024-08-12 07:07 | Outpatient (CLI) | payer MEDICARE, OTHER, SELFPAY ==
--- OUTSIDE RECORDS SUMMARY | 2024-08-12 07:14 | XMS_ITS | Encounter Summary ---
Author Name [facility] [place] Organization [facility] [place] Address [address] [place] [address] Care Team Providers Care Career Center Advisor Name Role Phone HUMA LIRIANO Primary Care Provider Unavailab le Insurance Providers: All historical and current Section Date Range: From patient's date of to the date document was created. This section includes the names of all active insurance providers for the patient. Insurance Provider Type of Coverage Plan Name Start of Policy Coverage End of Policy Coverage Group Number Member ID Insurance Provider's Telephone Number Policy Siddiqi's Name Patient's Relationship to Policy Siddiqi MEDICARE (WNR) MEDICARE (M) PART A May 18, 2020 PART A [id number] [facility] [phone] Estella CORNELL PATIENT MEDICARE (WNR) MEDICARE (M) PART B May 18, 2020 PART B [id number] [facility] WALIEstella CRUZ JUSTICE PATIENT -FO R-LIFE TRICA RE FOR LIFE WNR May 18, 2020 FOR LIFE [id number] [phone] Estella CORNELL PATIENT Selected Encounter This section includes the information on record at [place] for the Encounter. 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 Date/Time Primary/Secondary Diagnosis Diagnosis Name Provider Source Nov 30, 2023 03:36 PM PRIMARY Mix cndct/snrl hear loss,uni,r ear w rstrcd hear [facility] ANATOLY LAM [facility] Nov 30, 2023 03:36 PM SECONDARY Snsrnrl hear loss, uni, l ear, with rstrcd hear [facility] ANATOLY LAM [facility] Plan of Treatment: Future Appointments (+ 6 months) and Future Tests (+/- 45 days) The Plan of Treatment section includes future care activities for the patient from all [place] treatmentfacilities. This section includes future appointments and future orders which are active, pending or scheduled. Future Appointments This section includes appointments that were scheduled to occur 6 months from the date of the Encounter, up to a maximum of 20 appointments. The data comes from all [place] treatment facilities. Appointment Date/Time Appointment Type Appointme nt Facility Name Feb 20, 2024 08:30 AM AMBULATORY - MEDICINE [facility] Encounter Notes: All associated encounter notes This section contains the clinical notes associated to the Encounter. Date/Time Encounter Note(s) Provider Source Dec 06, 2023 08:36 AM ADDENDUM: LOCAL TITLE: Addendum STANDARD TITLE: ADDENDUM DATE OF NOTE: DEC 06, 2023@08:36:45 ENTRY DATE: DEC 06, 2023@08:36:46 AUTHOR: MISSY OJEDA EXP COSIGNER: URGENCY: STATUS: COMPLETED SUBJECT: audio Pt called and LMOM that he received his aid back from repair and the new aids are working well. He wanted to say THANK YOU for the great service and expedited service he received from Analy . /shawn/ Dayana CORDERO Staff Cricket Coach, Surgery Service Signed: 12/06/2023 08:37 Receipt Acknowledged By: 12/06/2023 08:53 /shawn/ Dayana GIBSON Graduate Cricket Coach, Surgery Service --- Original Document --- 11/30/23 HEARING AIDS STL: Pt was seen for fitting of new hearing aid(s). Otoscopy reveals clear ear canals. Aid(s) were programmed to First Fit and adjusted to NAL-NL2 prescriptive target. [x] provider initiated visit Family members were: [x] Present [] Not present [x] Conformity eval completed [] Conformity eval unavailable [x] Disposable batteries- size 13 [] Rechargeable batteries [] new user []Email and phone number verified with patient for VVC purposes. []Digital divide consult entered []Digital divide consult unnecessary. Patient has access to equipment. [x] experienced user- 04/03/17 PHONAK PHONAK AUDEO B90-R ROMERO R with c-shells Today, pt was fit with binaural PHONAK JAYSON L90-SP BTE with acrylic skeleton earmolds and YEFRI ON V2. The aids are programmed as: auto only. Deactivated rocker switch for volume per pt request. Pt indicated interest in BT to iPhone connectivity, but phone was unavailable at today's appt. Provided pt with BT troubleshooting number and connectivity brochure for pairing at home. Right: [id number] Left: [id number] Trial period: 04/18/2024 Trial period expiration date unavailable as invoice was still pending at time of fitting. Pt was told trial period would on 04/18/2024. Yefri: [id number] The following standardized education was provided and the pt was able to demonstrate understanding after the education: o Introduction to aids (red/blue, right/left) o Parts of the aid o Batteries o Insertion/removal of aids. o Volume control o Realistic expectations of aids. o Cleaning/maint of aids. Wax filters. [place]. o Review of the items: soft case, hard case o Review of the paperwork: supply reorder form, instruction manual, IOI survey, clinician name/number, L&D form o Review trial period and warranty o Bluetooth handout Real-ear measures are within acceptable limits. Curves stored in DENITA. Reduced overall gain to 95% per pt request. Counseled pt on proper use and care of aids. Pt practiced insertion/removal of aids. Verbalized understanding of hearing aid care and maintenance. Size 13 batteries ordered in ROES. Pt arrived to appt wearing binaural 2017 Phonak ROMERO devices: 04/03/17 PHONAK PHONAK AUDEO B90-R ROMERO R [id number] 04/03/17 PHONAK PHONAK AUDEO B90-R ROMERO L [id number] Pt brought casting room helper, charging cable, and wall block. Pt reported aids do not consistently charge in the casting room helper. Aids with casting room helper, charging cable and wall block left in clinic upon conclusion of appt. Performed hearing aid check on aids. Brushed and suctioned microphone and groover runner ports. Changed filters. Listening check revealed good amplification from aids. Trialed charging aids in pt's casting room helper. Noted intermittency in charging function as indicated by lights. Trialed charging aids in clinic casting room helper. Noted aids charged without issue. Cleaned contacts inside pt's casting room helper. Still noted issues with charging aids. Will send pt new Phonak casting room helper case combi 2 from clinic stock. Placed aids inside new casting room helper. Also mailing old charging cable and wall block. Verified address: [address] [place] [phone] *When replacement Phonak casting room helper case combi 2 arrives in clinic, add to clinic stock. Alert to ordering psychiatric attendant JM to follow up on ALD use. Rec: 1. Full-time hearing aid use to facilitate adjustment to amplification. 2. Contact Audiology Clinic [phone] or [phone] for repairs and/or adjustments as needed. Time for appt: 60 min /shawn/ Dayana GIBSON Graduate Cricket Coach, Surgery Service Signed: 11/30/2023 16:07 /shawn/ Dayana CORDERO Staff Cricket Coach, Surgery Service Cosigned: 12/03/2023 07:57 12/03/2023 ADDENDUM STATUS: COMPLETED The information above has been reviewed by this provider. I am in agreement with the action plan as outlined. This author will f/u with pt in 2 wks to check status/progress of Yefri. /shawn/ Dayana CORDERO Staff Cricket Coach, Surgery Service Signed: 12/03/2023 07:58 12/03/2023 ADDENDUM STATUS: COMPLETED [id number] /shawn/ Dayana CORDERO Staff Cricket Coach, Surgery Service Signed: 12/03/2023 13:24 MISSY OJEDA [facility] Nov 30, 2023 12:40 PM AUDIOLOGY BUSINESS FUNCTIONAL ANALYST NOTE: LOCAL TITLE: HEARING AIDS STL STANDARD TITLE: AUDIOLOGY BUSINESS FUNCTIONAL ANALYST NOTE DATE OF NOTE: NOV 30, 2023@12:40 ENTRY DATE: NOV 30, 2023@12:43:55 AUTHOR: JUAN LAM COSIGNER: MISSY OJEDA URGENCY: STATUS: COMPLETED SUBJECT: Audio HEARING AIDS STL Has ADDENDA Pt was seen for fitting of new hearing aid(s). Otoscopy reveals clear ear canals. Aid(s) were programmed to First Fit and adjusted to NAL-NL2 prescriptive target. [x] provider initiated visit Family members were: [x] Present [] Not present [x] Conformity eval completed [] Conformity eval unavailable [x] Disposable batteries- size 13 [] Rechargeable batteries [] new user []Email and phone number verified with patient for VVC purposes. []Digital divide consult entered []Digital divide consult unnecessary. Patient has access to equipment. [x] experienced user- 04/03/17 PHONAK PHONAK AUDEO B90-R ROMERO R with c-shells Today, pt was fit with binaural PHONAK JAYSON L90-SP BTE with acrylic skeleton earmolds and YEFRI ON V2. The aids are programmed as: auto only. Deactivated rocker switch for volume per pt request. Pt indicated interest in BT to iPhone connectivity, but phone was unavailable at today's appt. Provided pt with BT troubleshooting number and connectivity brochure for pairing at home. Right: [id number] Left: [id number] Trial period: 04/18/2024 Trial period expiration date unavailable as invoice was still pending at time of fitting. Pt was told trial period would on 04/18/2024. Yefri: [id number] The following standardized education was provided and the pt was able to demonstrate understanding after the education: o Introduction to aids (red/blue, right/left) o Parts of the aid o Batteries o Insertion/removal of aids. o Volume control o Realistic expectations of aids. o Cleaning/maint of aids. Wax filters. [place]. o Review of the items: soft case, hard case o Review of the paperwork: supply reorder form, instruction manual, IOI survey, clinician name/number, L&D form o Review trial period and warranty o Bluetooth handout Real-ear measures are within acceptable limits. Curves stored in DENITA. Reduced overall gain to 95% per pt request. Counseled pt on proper use and care of aids. Pt practiced insertion/removal of aids. Verbalized understanding of hearing aid care and maintenance. Size 13 batteries ordered in ROES. Pt arrived to appt wearing binaural 2017 Phonak ROMERO devices: 04/03/17 PHONAK PHONAK AUDEO B90-R ROMERO R [id number] 04/03/17 PHONAK PHONAK AUDEO B90-R ROMERO L [id number] Pt brought casting room helper, charging cable, and wall block. Pt reported aids do not consistently charge in the casting room helper. Aids with casting room helper, charging cable and wall block left in clinic upon conclusion of appt. Performed hearing aid check on aids. Brushed and suctioned microphone and groover runner ports. Changed filters. Listening check revealed good amplification from aids. Trialed charging aids in pt's casting room helper. Noted intermittency in charging function as indicated by lights. Trialed charging aids in clinic casting room helper. Noted aids charged without issue. Cleaned contacts inside pt's casting room helper. Still noted issues with charging aids. Will send pt new Phonak casting room helper case combi 2 from clinic stock. Placed aids inside new casting room helper. Also mailing old charging cable and wall block. Verified address: [address] [place] [phone] *When replacement Phonak casting room helper case combi 2 arrives in clinic, add to clinic stock. Alert to ordering psychiatric attendant JM to follow up on ALD use. Rec: 1. Full-time hearing aid use to facilitate adjustment to amplification. 2. Contact Audiology Clinic [phone] or [phone] for repairs and/or adjustments as needed. Time for appt: 60 min /Dayana Barrientos Graduate Cricket Coach, Surgery Service Signed: 11/30/2023 16:07 /Dayana Chamberlain Staff Cricket Coach, Surgery Service Cosigned: 12/03/2023 07:57 12/03/2023 ADDENDUM STATUS: COMPLETED The information above has been reviewed by this provider. I am in agreement with the action plan as outlined. This author will f/u with pt in 2 wks to check status/progress of Yefri. /Dayana Chamberlain Staff Cricket Coach, Surgery Service Signed: 12/03/2023 07:58 12/03/2023 ADDENDUM STATUS: COMPLETED [id number] /Dayana Chamberlain Staff Cricket Coach, Surgery Service Signed: 12/03/2023 13:24 12/06/2023 ADDENDUM STATUS: COMPLETED Pt called and LMOM that he received his aid back from repair and the new aids are working well. He wanted to say THANK YOU for the great service and expedited service he received from Analy . /Dayana Chamberlain Staff Cricket Coach, Surgery Service Signed: 12/06/2023 08:37 Receipt Acknowledged By: 12/06/2023 08:53 /Dayana Barrientos Graduate Cricket Coach, Surgery Service 12/07/2023 ADDENDUM STATUS: COMPLETED Combi casting room helper arrived to clinic and added to clinic stock. /Dayana Chamberlain Staff Cricket Coach, Surgery Service Signed: 12/07/2023 08:51 12/17/2023 ADDENDUM STATUS: COMPLETED Called pt to check on status of his newly issued hearing aids and Yefri device. He was fit on 11-30-23 PHONAK JAYSON L90-SP BTE with acrylic skeleton earmolds and YEFRI ON V2. Pt unavailable. Left message with clinic number in case of problems: [phone] opt 2. time: 1 min dx: SNHL /shawn/ Dayana CORDERO Staff Cricket Coach, Surgery Service Signed: 12/17/2023 10:21 01/01/2024 ADDENDUM STATUS: COMPLETED IOI survey: 32 /shawn/ Dayana CORDERO Staff Cricket Coach, Surgery Service Signed: 01/01/2024 09:06 JUAN LAM [facility]
--- OUTSIDE RECORDS SUMMARY | 2024-08-12 07:14 | XMS_ITS | Clinical Summary ---
Author Organization [facility] Address [facility] [place] [address] Care Team Providers Care Remote Recruiter Name Role Phone Bhargavi Tena MD Primary Care Provider [phone] Social History Tobacco Use Types Packs/Day Years Used Date Smoking Tobacco: Never Assessed Sex and Gender Information Value Date Recorded Sex Assigned at Not on file Legal Sex Male 9:14 AM CDT Gender Identity Not on file Sexual Orientation Not on file Plan of Treatment Health Maintenance Due Date Last Done Comments Colorectal Cancer Screening Colonoscopy (10 Years) 1955 Hepatitis C 1973 DTaP, Tdap and Td Vaccines (1 - Tdap) 1974 Annual Medicare Wellness Visit 2020 Pneumococcal Vaccine: 65+ Years (2 of 2 - PCV) 2020 03/18/2015 COVID-19 Vaccine ( season) 2024 03/23/2023, 02/22/2022, 09/25/2021, Additional history exists Influenza Adult (#1) 2024 02/19/2020, 03/19/2019, 03/18/2015 Zoster Vaccines Completed 10/03/2022, 05/09/2022 RSV Immunization or 60+ Years Completed 01/31/2023 Meningococcal B Vaccine Aged Out No l onger eligible based on patient's age to complete this topic Meningococcal Vaccine Aged Out No brice taj eligible based on patient's age to complete this topic RSV Immunizations Under 20 Months Aged Out No longer eligible based on patient's age to complete this topic Insurance [facility] MEDICARE Care Teams Remote Recruiter Relationship Specialty Start Date End Date Bhargavi Tena MD [address] [place] [address] PCP - General FAMILY PRACTICE 09/20/23
--- OUTSIDE RECORDS SUMMARY | 2024-08-12 07:14 | XMS_ITS | Encounter Summary ---
Author Name [facility] [place] Address [address] [place] [address] Care Team Providers Care Bench Boring Machine Operator Name Role Phone HUMA LIRIANO Primary Care Provider Unavail le Insurance Providers: All historical and current [...] PART A May 18, 2020 PART A [id number] [facility] [phone] KRAIGEstella RENDON PATIENT MEDICARE (WNR) MEDICARE (M) PART B May 18, 2020 PART B [id number] Estella CORNELL JUSTICE PATIENT -FO R-LIFE TRICA RE FOR LIFE WNR May 18, 2020 FOR LIFE [id number] [phone] KRAIGEstella JUSTICE PATIENT Selected Encounter This section includes the information on record at [place] for the Encounter. Date/Time Encounter Type Encounter Description Reason Provider Source October 31, 2023 09:00 AM TYMPANOMETRY & REFLEX THRESH AUDIOLOGY ICD-10-CM H90.A31 Mix cndct/snrl hear loss,uni,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 MILES,MISSY M IHRafa Encounter Template Text not used by [place] Assessments - Encounter Diagnoses This section includes the primary and secondary diagnoses documented for the Encounter. 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 This section includes future appointments and future orders which are active, pending or scheduled. Future Appointments This section includes appointments that were scheduled to occur 6 months from the date of the Encounter, up to a maximum of 20 appointments. The data comes from all [place] treatment facilities. Appointment Date/Time Appointment Type Appointme nt Facility Name Nov 30, 2023 12:45 PM AMBULATORY - SUR[facility]ERY [facility] Feb 20, 2024 08:30 AM AMBULATORY - MEDICINE [facility] Encounter Notes: All associated encounter notes This section contains the clinical notes associated to the Encounter. Date/Time Encounter Note(s) Provider Source October 31, 2023 09:01 AM AUDIOLOGY E & M NO TE: LOCAL TITLE: AUDIO EVALS RUST STANDARD TITLE: AUDIOLOGY E & M NOTE DATE OF NOTE: OCTOBER 31, 2023@09:01 ENTRY DATE: OCTOBER 31, 2023@09:01:28 AUTHOR: MISSY OJEDA EXP COSIGNER: URGENCY: STATUS: COMPLETED SUBJECT: audio Purpose of appt: audio [x] patient initiated visit [] provider initiated visit Case history: Otoscopic evaluation normal AU. TM's visible AU. Pt's main complaint is bilateral hearing loss, worse to right ear. Reported constant, bilateral tinnitus described as ringing, crickets, and a bunch of sounds . Pt denied otalgia, aural fullness, dizziness. He has had 2 right TM patches at private ENT physician, Dr. Chapman. He is scheduled to see Dr. Chapman on November 13. He reported an ear infection one year ago. Last eval 01-29-2017. Pt has the following hearing aids and is interested in new aids if possible. Recently, he has pain with left hearing aid if worn for prolonged time. 04/03/17 PHONAK PHONAK AUDEO B90-R ROMERO R [id number] 04/03/17 PHONAK PHONAK AUDEO B90-R ROMERO L [id number] RESULTS: Right Ear- Audiometry (air and/or bone conduction): Mod 250 sloping to profound mixed at 2- 8000 Hz. Bone line symmetric with left ear indicating mild to severe loss. SRT: 70 dB WRS: 16% (last eval 52%) Tympanogram: type B, Flat Reflexes: ipsi: absent contra: absent Left Ear- Audiometry (air and/or bone conduction): Mild 250 sloping to severe/profound SNHL at 2-8000 Hz. SRT: 65 dB WRS: 28% (last eval 68%) Tympanogram: type Ad Reflexes: ipsi: absent contra: absent/artifact Due to mixed loss, pt will need medical clearance for hearing aids. He declined transferring ENT care to [place]. He will ask Dr. Chapman's office to fax medical clearance to [facility] on November 13 after his appt. Pt is a candidate for hearing aids. Also discussed cochlear implant. Pt stated Dr. Chapman's office has also rec CI, but pt is not interested at this time. He declined informational brochures from [place] today stating that Dr. Chapman has provided him info in the past. Counseled pt regarding degree of loss and realistic expectations of hearing aids. HAE to follow. Recommendations: 1. HAF sched. Will need to verify receipt of medical clearance after November 13 or aids cannot be issued. Pt and understood. Provided fax number: [phone]. /shawn/ Dayana CORDERO Staff Quality Assurance Qa Lab Analyst, Surgery Service Signed: 10/31/2023 12:17 MISSY OJEDA [facility]
--- OUTSIDE RECORDS SUMMARY | 2024-08-12 07:15 | XMS_ITS | Encounter Summary ---
Author Organization [facility] Address [address] [place] [address] Phone Care Team Providers Care Manager Managed Backup Services Name Role Phone Lora Bajwa MD Unavailable + [phone] Bhargavi Tena MD Primary Care Provider Encounter Details Date Type Department Care Team (Late st Contact Info) Description 03/02/2021 Orders Only [facility] Scanning, Provider Social History Tobacco Use Types Packs/Day Years Used Date Smoking Tobacco: Former Cigarettes Q uit: 12/19/1993 Smokeless Tobacco: Never Sex and Gender Information Value Date Recorded Sex Assigned at Not on file Legal Sex Male 12:56 AM COMMUNICATIONS EQUIPMENT INSTALLER Gender Identity Male 02/26/2020 6:57 AM CDT Sexual Orientation Straight 02/26/2020 6: 57 AM CDT documented as of this encounter Plan of Treatment Not on file documented as of this encounter Procedures Procedure Name Priority Date/Time Associated Diagnosis Comments SCAN - LABS 03/02/2021 documented in this encounter Results * SCAN - LABS (03/02/2021) us Provider Scanning Final Result documented in this encounter Visit Diagnoses Not on filedocumented in this encounter Care Teams Manager Managed Backup Services Relationship Specialty Start Date End Date Bhargavi Tena MD [address] [facility] [address] [place], [place] [id number] PCP - General Family Medicine 11/30/20 Lora Bajwa MD [facility] [place] [address] Referring Physician Family Practice 11/20/18 documented as of this encounter
--- OUTSIDE RECORDS SUMMARY | 2024-08-12 07:15 | XMS_ITS | Encounter Summary ---
Author Organization [facility] Address [address] [facility] [place] [address] Care Team Providers Care Physical Fitness Teacher Name Role Phone Unavailable Primary Care Provider Unavailabl e Encounter Details Date Type Department Care Team (Late st Contact Info) Description 02/14/2018 Lab Requisition [facility] [address] [facility], [place] [address] Gwen Gutiérrez MD [address] [facility] 3 [place] [address] Social History Tobacco Use Types Packs/Day Years Used Date Smoking Tobacco: Former Cigarettes Q uit: 06/22/1993 Alcohol Use Standard Drinks/Week Comments No 0 (1 standard drink = 0.6 oz pur e alcohol) Sex and Gender Information Value Date Recorded Sex Assigned at Not on file Gender Identity Not on file Sexual Orientation Not on file documented as of this encounter Plan of Treatment Not on file documented as of this encounter Procedures Procedure Name Priority Date/Time Associated Diagnosis Comments DERMATOPATH TECHNICAL REPORT Routine 02/12/2018 12:00 AM CDT documented in this encounter Results * DERMATOPATH TECHNICAL REPORT (02/12/2018 12:00 AM CDT) Case Report Dermatopathology Report Case: [id number] Authorizing Provider: Gwen Gutiérrez MD Collected: 02/12/2018 12:00 AM Pathologist: Vincent Hubbard MD Received: 02/14/2018 06:14 AM Specimen: Skin, right nasal bridge 1:19 PM CDT DERMATOPATHOLOGY LABORATORY Clinical History R/O BCC vs seborrheic keratosis, non-healing. Check margins. 1:19 PM CDT DERMATOPATHOLOGY LABORATORY Gross Description Specimen A: Received is one formalin filled container labeled with the patient's name and designated right nasal bridge. The specimen consists of a shave (2 pieces) measuring [id number] & 0p6p7lb. The margins are inked green. Jar 0. [facility] Dermatopathology Laboratory performed the technical component only. 1:19 PM CDT DERMATOPATHOLOGY LABORATORY Embedded Images 1:19 PM T DERMATOPATHOLOGY LABORATORY DISCLAIMER An external and internal positive and negative controls are appropriate for the histochemical, immunohistochemical and immunofluorescence stain(s) in this case (if any), except where stated explicitly. The performance characteristics of the stain(s) cited in this report were developed and its performance characteristic determined by the Dermatopathology Laboratory at [facility]. These tests need not be, and therefore are not, approved by the [place] Food and Drug Administration. The tests are used for clinical purposes. 1:19 PM T DERMATOPATHOLOGY LABORATORY Pathology/Cytolog y TISSUE SPECIMEN FROM SKIN / Unknown 02/12/2018 02/14/2018 6:14 AM CDT Gwne Gutiérrez MD LAB - PATHOLOGY/CYT OLOGY ORDERABLES DERMATOPATHOLOGY LABORATORY [facility] - Department of Dermatology [address] [place] [address], [address]th [place] [address], [facility] [phone] documented in this encounter Visit Diagnoses Not on filedocumented in this encounter
--- OUTSIDE RECORDS SUMMARY | 2024-08-12 07:15 | XMS_ITS | Referral Summary ---
Author Organization [facility] Address [address] [place] [address] Care Team Providers Care Hide Spreader Name Role Phone Unavailable Primary Care Provider Unavailabl e Source Comments [facility],non-owned Affiliates and Associated Physician Practices is amultiple site organization consisting of ambulatory clinics and hospital sitesin [place], [place], [place] and [place]. This disclosure is being madepursuant to the Care Everywhere program and may not contain all information available regarding this patient. Last updated 18.[facility] LessThan3 Allergies No known active allergies Medications * Be aware that medications may not be up to date on this document. Alwaysverify current medications with the patient. Medication Sig Dispensed Refills Start Date End Date Status telmisartan (MICARDIS) 40 MG tablet Take 40 mg by mouth at bedtime. Active simvastatin (ZOCOR) 20 MG tablet Take 20 mg by mouth at bedtime. Active aspirin 81 MG tablet Take 81 mg by mouth once daily. Active metFORMIN (GLUCOPHAGE) 500 MG tablet Take 500 mg by mouth 2 times daily with morning and evening meal. Active traMADol (ULTRAM) 50 MG tablet Take 100 mg by mouth 2 times daily. Active Social History Tobacco Use Types Packs/Day Years Used Date Smoking Tobacco: Former Cigarettes Q uit: 06/22/1993 Alcohol Use Standard Drinks/Week Comments No 0 (1 standard drink = 0.6 oz pur e alcohol) Sex and Gender Information Value Date Recorded Sex Assigned at Not on file Gender Identity Not on file Sexual Orientation Not on file Last Filed Vital Signs Vital Sign Reading Time Taken Comments Blood Pressure 139/83 05/22/2013 12:57 PM PORTABLE TRACK LINE MARKER Pulse 75 05/22/2013 12:57 PM PORTABLE TRACK LINE MARKER Temperature 36.9 C (98.4 F) 05/22/2013 12:57 PM PORTABLE TRACK LINE MARKER Respiratory Rate 16 05/22/2013 12:57 PM PORTABLE TRACK LINE MARKER Oxygen Saturation 96% 05/22/2013 12:57 PM PORTABLE TRACK LINE MARKER Inhaled Oxygen Concentration - - Weight 116.1 kg (256 lb) 05/22/2013 8:02 AM PORTABLE TRACK LINE MARKER Height 182.9 cm (6') 05/22/2013 8:02 AM PORTABLE TRACK LINE MARKER Body Mass Index 34.72 05/22/2013 8:02 AM PORTABLE TRACK LINE MARKER Plan of Treatment Not on file Elfego Fleming Personal/Family Self [address] [place] [address]
--- OUTSIDE RECORDS SUMMARY | 2024-08-12 07:15 | XMS_ITS | Encounter Summary ---
Author Organization [facility] Address [address] [facility] [place] [address] Care Team Providers Care Extractor Filler Name Role Phone Unavailable Primary Care Provider Unavailabl e Encounter Details Date Type Department Care Team (Late st Contact Info) Description 08/29/2023 Lab Requisition [facility] - DermPath Lab [address] [facility], [place] [address] Johanna Wagner MD [address] [facility] [address] [place] [address] Social History Tobacco Use Types Packs/Day Years [...] Procedure Name Priority Date/Time Associated Diagnosis Comments DERMATOPATHOLOGY Routine 08/29/2023 8:34 AM CDT documented in this encounter Results * DERMATOPATHOLOGY (08/29/2023 8:34 AM CDT) Case Report Dermatopathology Report Case: [id number] Authorizing Provider: Johanna Wagner MD Collected: 08/29/2023 08:34 AM Ordering Location: [facility] - Received: 08/30/2023 10:49 AM DermPath Lab Pathologist: Lauren Roberts MD Specimens: A) - Skin, left neck B) - Skin, left forehead 3:33 PM [facility] DERMATOPATHOLOGY LABORATORY Final Diagnosis Specimen A. SKIN, left neck: ACTINIC KERATOSIS, INFLAMED (L57.0) Specimen B. SKIN, left forehead: GRANULOMATOUS DERMATITIS CONSISTENT WITH A RUPTURED CYST OR HAIR FOLLICLE (L72.0) 3:33 PM [facility] DERMATOPATHOLOGY LABORATORY Clinical History A-B: r/o BCC 3:33 PM [facility] DERMATOPATHOLOGY LABORATORY Gross Description Specimen A: Received is one formalin filled container labeled with the patient's name and designated left neck. The specimen consists of a shave biopsy measuring 6x5x1 mm. Jar 0. Specimen B: Received is one formalin filled container labeled with the patient's name and designated left forehead. The specimen consists of a shave biopsy measuring 5x5x1 mm. Jar 0. 3:33 PM [facility] DERMATOPATHOLOGY LABORATORY Microscopic Description Specimen A. SKIN, left neck: There is hyperkeratosis, parakeratosis, papillomatosis, and acanthosis of the epidermis. There is a lymphohistiocytic infiltrate within the papillary dermis that is focally lichenoid. Specimen B. SKIN, left forehead: Neutrophils, histiocytes, and multinucleated giant cells are present within the dermis. 3:33 PM [facility] DERMATOPATHOLOGY LABORATORY Disclaimer An external and internal positive and negative controls are appropriate for the histochemical, immunohistochemical and immunofluorescence stain(s) in this case (if any), except where stated explicitly. The performance characteristics of the stain(s) cited in this report were developed and its performance characteristic determined by the Dermatopathology Laboratory at [facility], directed by Dr. Sandi Hubbard. These tests need not be, and therefore are not, approved by the [place] Food and Drug Administration. The tests are used for clinical purposes. Billing Codes Specimen Charges Stain Charges 22748 00823 1 1 3:33 PM T DERMATOPATHOLOGY LABORATORY Embedded Images 3:33 PM [facility] DERMATOPATHOLOGY LABORATORY Pathology/Cytology TISSUE SPECIMEN FROM SKIN / Unknown 08/29/2023 8:34 AM CDT 08/30/2023 10:49 AM CDT Miscellaneous samples (specimen) TISSUE SPECIMEN FROM SKIN / Unknown 08/29/2023 8:34 AM CDT 08/30/2023 10:49 AM CDT Johanna Wagner MD LAB - PATHOLOGY/CYTO LOGY ORDERABLES DERMATOPATHOLOGY LABORATORY [facility] - Department of Dermatology [facility] [address] [place] [address], [address]rd Floor [address] [phone] documented in this encounter Visit Diagnoses Not on filedocumented in this encounter
--- OUTSIDE RECORDS SUMMARY | 2024-08-12 07:15 | XMS_ITS | Encounter Summary ---
Author Organization [facility] Address [address] [place] [address] Phone Care Team Providers Care Pallet Assembler Name Role Phone Mk Lewis MD Primary Care Provider [phone] Lora Bajwa MD Primary Care Provider Lora Bajwa MD Unavailable [phone] Amanda Villa DO Primary Care Provider [phone] Bhargavi Tena MD Primary Care Provider Encounter Details Date Type Department Care Team (Late st Contact Info) Description 11/25/2015 Orders Only [facility] Scanning, Provider Social History Tobacco Use Types Packs/Day Years Used Date Smoking Tobacco: Never Assessed Sex and Gender Information Value Date Recorded Sex Assigned at Not on file Legal Sex Male 12:56 AM SHELL REPRINT OPERATOR Gender Identity Male 02/26/2020 6:57 AM CDT Sexual Orientation Straight 02/26/2020 6: 57 AM CDT documented as of this encounter Plan of Treatment Not on file documented as of this encounter Procedures Procedure Name Priority Date/Time Associated Diagnosis Comments SCAN - LABS 11/25/2015 documented in this encounter Results * SCAN - LABS (11/25/2015) us Provider Scanning Final Result documented in this encounter Visit Diagnoses Not on filedocumented in this encounter Care Teams Pallet Assembler Relationship Specialty Start Date End Date Mk Lewis MD PCP - General 12/05/16 03/06/17 Lora Bajwa MD [address] [facility], [place] [address] PCP - General 03/07/17 12/02/19 Amanda Villa DO [address] [facility], [place] [address] PCP - General 12/03/19 11/29/20 Bhargavi Tena MD [address] [facility] [address] [place], [place] [id number] PCP - General Family Medicine 11/30/20 Lora Bajwa MD [address] [facility], [place] [address] Referring Physician Family Practice 11/20/18 documented as of this encounter
--- OUTSIDE RECORDS SUMMARY | 2024-08-12 07:15 | XMS_ITS | Patient Health Summary ---
Author Organization [facility] Address [address] [place] [address] Care Team Providers Care Lollypop Machine Operator Name Role Phone Unavailable Primary Care Provider Unavailabl e Note from [facility],non-owned Affiliates and Associated Physician Practices is amultiple site organization consisting of ambulatory clinics and hospital sitesin [place], [place], [place] and [place]. This disclosure is being madepursuant to the Care Everywhere program and may not contain all information available regarding this patient. Last updated 18.[facility] [employer] Allergies No known active allergies Medications * Be aware that medications may not be up to date on this document. Alwaysverify current medications with the patient. * telmisartan (MICARDIS) 40 MG tablet Take 40 mg by mouth at bedtime. * simvastatin (ZOCOR) 20 MG tablet Take 20 mg by mouth at bedtime. * aspirin 81 MG tablet Take 81 mg by mouth once daily. * metFORMIN (GLUCOPHAGE) 500 MG tablet Take 500 mg by mouth 2 times daily with morning and evening meal. * traMADol (ULTRAM) 50 MG tablet Take 100 mg by mouth 2 times daily. Social History Tobacco Use Types Packs/Day Years [...] Comments Blood Pressure 139/83 05/22/2013 12:57 PM MANAGER MERCHANDISING Pulse 75 05/22/2013 12:57 PM MANAGER MERCHANDISING Temperature 36.9 C (98.4 F) 05/22/2013 12:57 PM MANAGER MERCHANDISING Respiratory Rate 16 05/22/2013 12:57 PM MANAGER MERCHANDISING Oxygen Saturation 96% 05/22/2013 12:57 PM MANAGER MERCHANDISING Inhaled Oxygen Concentration - - Weight 116.1 kg (256 lb) 05/22/2013 8:02 AM MANAGER MERCHANDISING Height 182.9 cm (6') 05/22/2013 8:02 AM MANAGER MERCHANDISING Body Mass Index 34.72 05/22/2013 8:02 AM MANAGER MERCHANDISING Procedures * DERMATOPATHOLOGY(Performed 08/29/2023) * DERMATOPATHOLOGY(Performed 10/03/2022) * DERMATOPATHOLOGY(Performed 02/07/2022) * DERMATOPATHOLOGY(Performed 08/01/2019) * DERMATOPATH TECHNICAL REPORT(Performed 02/12/2018) * DERMATOPATHOLOGY(Performed 10/21/2014) * TYMPANOPLASTY(Performed 05/22/2013) 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 Case Report Dermatopathology Report Case: [id number] Authorizing Provider: Johanna Wagner MD Collected: 08/29/2023 08:34 AM Ordering Location: [facility] - Received: 08/30/2023 10:49 AM DermPath Lab Pathologist: Lauren Roberts MD Specimens: A) - Skin, left neck B) - Skin, left forehead 3:33 PM CDT DERMATOPATHOLOGY LABORATORY Final Diagnosis Specimen A. SKIN, left neck: ACTINIC KERATOSIS, INFLAMED (L57.0) Specimen B. SKIN, left forehead: GRANULOMATOUS DERMATITIS CONSISTENT WITH A RUPTURED CYST OR HAIR FOLLICLE (L72.0) 4 3:33 PM CDT DERMATOPATHOLOGY LABORATORY Clinical History A-B: r/o BCC 4 3:33 PM CDT DERMATOPATHOLOGY LABORATORY Gross Description Specimen [...] shave biopsy measuring 5x5x1 mm. Jar 0. 4 3:33 PM CDT DERMATOPATHOLOGY LABORATORY Microscopic Description Specimen A. SKIN, left neck: There is hyperkeratosis, parakeratosis, papillomatosis, and acanthosis of the epidermis. There is a lymphohistiocytic infiltrate within the papillary dermis that is focally lichenoid. Specimen B. SKIN, left forehead: Neutrophils, histiocytes, and multinucleated giant cells are present within the dermis. 4 3:33 PM CDT DERMATOPATHOLOGY LABORATORY Disclaimer An external and internal positive and negative controls are appropriate for the histochemical, immunohistochemical and immunofluorescence stain(s) in this case (if any), except where stated explicitly. The performance characteristics of the stain(s) cited in this report were developed and its performance characteristic determined by the Dermatopathology Laboratory at [facility], directed by Dr. Sandi Hubbard. These tests need not be, and therefore are not, approved by the [place] Food and Drug Administration. The tests are used for clinical purposes. Billing Codes Specimen Charges Stain Charges 01579 [id number] 1 1 4 3:33 PM CDT DERMATOPATHOLOGY LABORATORY Embedded Images 4 3:33 PM CDT DERMATOPATHOLOGY LABORATORY Pathology/Cytology TISSUE SPECIMEN FROM SKIN / Unknown 08/29/2023 8:34 AM CDT 08/30/2023 10:49 AM CDT Miscellaneous samples (specimen) TISSUE SPECIMEN FROM SKIN / Unknown 08/29/2023 8:34 AM CDT 08/30/2023 10:49 AM CDT Johanna Wagner MD LAB - PATHOLOGY/CYTO LOGY ORDERABLES DERMATOPATHOLOGY LABORATORY [facility] - Department of Dermatology [facility] [address] [facility], 3rd Floor [address] [phone] * DERMATOPATH TECHNICAL REPORT (02/12/2018 12:00 AM CDT) Case Report Dermatopathology Report Case: [id number] Authorizing Provider: Gwen Gutiérrez MD Collected: 02/12/2018 [...] consists of a shave (2 pieces) measuring [id number] & 8a4j5ph. The margins are inked green. Jar 0. [facility] Dermatopathology Laboratory performed the technical component only. 1:19 PM CDT DERMATOPATHOLOGY LABORATORY Embedded Images 1:19 PM CDT DERMATOPATHOLOGY LABORATORY DISCLAIMER An external and internal positive and negative controls are appropriate for the histochemical, immunohistochemical and immunofluorescence stain(s) in this case (if any), except where stated explicitly. The performance characteristics of the stain(s) cited in this report were developed and its performance characteristic determined by the Dermatopathology Laboratory at [facility]. These tests need not be, and therefore are not, approved by the [place] Food and Drug Administration. The tests are used for clinical purposes. 1:19 PM CDT DERMATOPATHOLOGY LABORATORY Pathology/Cytolog y TISSUE SPECIMEN FROM SKIN / Unknown 02/12/2018 02/14/2018 6:14 AM CDT Gwen Gutiérrez MD LAB - PATHOLOGY/CYT OLOGY ORDERABLES DERMATOPATHOLOGY LABORATORY [facility] - Department of Dermatology [address] [facility], 5th [place] [address], [facility] [phone] * (ABNORMAL) GLUCOSE - POINT OF CARE (05/22/2013 11:36 AM MANAGER MERCHANDISING) Only the most recent of2 resultswithin the time period is included. Blood BLOOD SPECIMEN / Unknown 05/22/2013 11:36 AM MANAGER MERCHANDISING 05/22/2013 3:38 PM MANAGER MERCHANDISING Lamin Chapman MD LAB - POINT OF CARE ORDERABLES Performing Organization Address [facility] Co de Phone Number [facility] [address] [place] [address] * EKG 12-LEAD (05/22/2013 7:54 AM MANAGER MERCHANDISING) Ventricular Rate 71 BPM [facility] Atrial Rate 71 BPM [facility] P-R Interval 154 ms [facility] QRS Duration ms 94 ms [facility] Q-T Interval ms 412 ms [facility] QTC Calculation (Bezet) 447 ms [facility] Calculated P [place] 40 degrees [facility] Calculated R [place] -20 degrees [facility] Calculated T [place] 21 degrees [facility] Interpretation EKG Normal sinus rhythm Normal ECG No previous ECGs available Confirmed by ZACH HIRSCH, CAMILO ([id number]) on 05/23/2013 11:10:02 AM [facility] 05/22/2013 7:54 AM MANAGER MERCHANDISING 05/23/2013 11:10 AM MANAGER MERCHANDISING Narrative [facility] - 05/23/2013 11:10 AM MANAGER MERCHANDISING Procedure Note Document, Scanned - 05/23/2013 7:03 AM CST Transcriptions Document, Scanned - 05/23/2013 7:07 AM CST Document, Scanned - 05/23/2013 11:11 AM CST Mike Jimenez MD ECG ORDERABLES Performing Organization Address [facility] Co de Phone Number [facility] * (ABNORMAL) BASIC METABOLIC PANEL (CALCIUM TOTAL) (05/22/2013 7:51 AM MANAGER MERCHANDISING) Glucose 116(H) 74 - 106 mg/dL 05/22/2013 8:11 AM [facility] Sodium 138 136 - 145 mmol/L 05/22/2013 8:11 AM [facility] Potassium 4.2 3.5 - 5.1 mmol/L 05/22/2013 8:11 AM [facility] Chloride 104 98 - 107 mmol/L 05/22/2013 8:11 AM [facility] CO2 28 22 - 31 mmol/L 05/22/2013 8:11 AM [facility] Calcium 9.0 8.5 - 10.1 mg/dL 05/22/2013 8:11 AM [facility] Anion Gap 6 5 - 15 mmol/L 05/22/2013 8:11 AM [facility] BUN 15 7 - 21 mg/dL 05/22/2013 8:11 AM [facility] Creatinine 0.67 0.50 - 1.30 mg/dL 05/22/2013 8:11 AM [facility] eGFR by MDRD >60 >60 mL/min/1.7 3m2 05/22/2013 8:11 AM [facility] eGFR by MDRD >60 >60 mL/min/1.7 3m2 05/22/2013 8:11 AM [facility] Blood BLOOD SPECIMEN / Unknown 05/22/2013 7:51 AM MANAGER MERCHANDISING 05/22/2013 7:57 AM MANAGER MERCHANDISING Lamin Chapman MD LAB - CHEMISTRY [facility] [address] [place] [address]
--- OUTSIDE RECORDS SUMMARY | 2024-08-12 07:15 | XMS_ITS | Clinical Summary ---
Author Organization [facility] Address [address] [place] [address] Care Team Providers Care Service Administrator Name Role Phone Unavailable Primary Care Provider Unavailabl e Source Comments [facility] xaitment,non-owned Affiliates and Associated Physician Practices is amultiple site organization consisting of ambulatory clinics and hospital sitesin [place], [place], [place] and [place]. This disclosure is being madepursuant to the Care Everywhere program and may not contain all information available regarding this patient. Last updated 18.[facility] xaitment Allergies No known active allergies Medications * [...] Comments Blood Pressure 139/83 05/22/2013 12:57 PM CRAWLER DRAGLINE OPERATOR Pulse 75 05/22/2013 12:57 PM CRAWLER DRAGLINE OPERATOR Temperature 36.9 C (98.4 F) 05/22/2013 12:57 PM CRAWLER DRAGLINE OPERATOR Respiratory Rate 16 05/22/2013 12:57 PM CRAWLER DRAGLINE OPERATOR Oxygen Saturation 96% 05/22/2013 12:57 PM CRAWLER DRAGLINE OPERATOR Inhaled Oxygen Concentration - - Weight 116.1 kg (256 lb) 05/22/2013 8:02 AM CRAWLER DRAGLINE OPERATOR Height 182.9 cm (6') 05/22/2013 8:02 AM CRAWLER DRAGLINE OPERATOR Body Mass Index 34.72 05/22/2013 8:02 AM CRAWLER DRAGLINE OPERATOR Plan of Treatment Health Maintenance Due Date Last Done Comments COLOGUARD (AGES 45-75) - COL ON CA SCREENING 1955 COLON MONITORING 1955 COLONOSCOPY - COLON CA SCREENING 1955 CT COLONOGRAPHY - COLON CA SCREENING 1955 Colorectal Cancer Screening 1955 FIT - COLON CA SCREENING 1955 FLEX SIG - COLON CA SCREENING 1955 MEDICARE AWV 12 MONTHS 1955 HEPATITIS C SCREENING 05/28/1973 DTAP/TDAP/TD VACCINES (1 - Tdap) 1974 PNEUMOCOCCAL VACCINE 50+ (1 of 1 - PCV) 2005 ZOSTER VACCINE (1 of 2) 2005 AAA SCREENING 2020 COVID-19 VACCINE ( - 2023-2 5 season) 2024 INFLUENZA VACCINE (#1) 2024 DEPRESSION SCREENING 06/18/2024 Respiratory Syncytial Virus (RSV) Vaccine Pt: or over 60 yrs (1 - 1-dose 75+ series) 2030 HEPATITIS B VACCINE Aged Out No longe r eligible based on patient's age to complete this topic HIB VACCINE Aged Out No longer eligi ble based on patient's age to complete this topic HPV VACCINE Aged Out No longer eligi ble based on patient's age to complete this topic MENINGOCOCCAL (Group B) VACCINE Aged Out No longer eligible based on patient's age to complete this topic MENINGOCOCCAL VACCINE Aged Out No brice taj eligible based on patient's age to complete this topic Elfego Fleming Personal/Family Self 1955 [address] [facility] [place] [address]
--- OUTSIDE RECORDS SUMMARY | 2024-08-12 07:15 | XMS_ITS | Encounter Summary ---
Author Organization [facility] Address [address] [facility] [place] [address] Care Team Providers Care Education Technician Name Role Phone Unavailable Primary Care Provider Unavailabl e Encounter Details Date Type Department Care Team (Late st Contact Info) Description 08/04/2019 Lab Requisition [facility] [address] [place] [address] Gwen Gutiérrez MD [address] [facility] [address] [place] [address] Social History Tobacco Use Types Packs/Day Years [...] Priority Date/Time Associated Diagnosis Comments DERMATOPATHOLOGY Routine 08/01/2019 12:0 0 AM REGIONAL EXTENSION SERVICE SPECIALIST documented in this encounter Results * DERMATOPATHOLOGY (08/01/2019 12:00 AM REGIONAL EXTENSION SERVICE SPECIALIST) Case Report Dermatopathology Report Case: [id number] Authorizing Provider: Gwen Gutiérrez MD Collected: 08/01/2019 12:00 AM Ordering Location: [facility] Received: 08/04/2019 07:48 AM Pathologist: Vincent Hubbard MD Specimen: Skin, right sup chest 0 1:20 PM REGIONAL EXTENSION SERVICE SPECIALIST DERMATOPATHOLOGY LABORATORY Final Diagnosis Specimen A. SKIN, right sup chest: SEBORRHEIC KERATOSIS, IRRITATED (L82.0) 0 1:20 PM REGIONAL EXTENSION SERVICE SPECIALIST DERMATOPATHOLOGY LABORATORY Clinical History MM vs SK. Irreg color. 0 1:20 PM REGIONAL EXTENSION SERVICE SPECIALIST DERMATOPATHOLOGY LABORATORY Gross Description Specimen A: Received is one formalin filled container labeled with the patient's name and designated right sup chest. The specimen consists of a shave measuring [id number]. Jar 0. 0 1:20 PM REGIONAL EXTENSION SERVICE SPECIALIST DERMATOPATHOLOGY LABORATORY Microscopic Description Specimen A. SKIN, right sup chest: There is acanthosis consisting of fairly uniform squamous cells with eosinophilic cytoplasm and squamous eddies. 0 1:20 PM REGIONAL EXTENSION SERVICE SPECIALIST DERMATOPATHOLOGY LABORATORY Disclaimer An external and internal positive and negative controls are appropriate for the histochemical, immunohistochemical and immunofluorescence stain(s) in this case (if any), except where stated explicitly. The performance characteristics of the stain(s) cited in this report were developed and its performance characteristic determined by the Dermatopathology Laboratory at [facility], directed by Dr. Sandi Hubbard. These tests need not be, and therefore are not, approved by the [place] Food and Drug Administration. The tests are used for clinical purposes. Billing Codes Specimen Charges Stain Charges 99494 1 0 1:20 PM REGIONAL EXTENSION SERVICE SPECIALIST DERMATOPATHOLOGY LABORATORY Embedded Images 0 1:20 PM REGIONAL EXTENSION SERVICE SPECIALIST DERMATOPATHOLOGY LABORATORY Pathology/Cytolog y TISSUE SPECIMEN FROM SKIN / Unknown 08/01/2019 08/04/2019 7:48 AM REGIONAL EXTENSION SERVICE SPECIALIST Gwen Gutiérrez MD LAB - PATHOLOGY/CYT OLOGY ORDERABLES DERMATOPATHOLOGY LABORATORY [facility] - Department of Dermatology [address] [place] [address], [facility] [phone] documented in this encounter Visit Diagnoses Not on filedocumented in this encounter
--- OUTSIDE RECORDS SUMMARY | 2024-08-12 07:15 | XMS_ITS | Encounter Summary ---
Author Organization [facility] Address [address] [place] [address] Phone Care Team Providers Care Graduate Studies Dean Name Role Phone Lora Bajwa MD Unavailable + [phone] Bhargavi Tena MD Primary Care Provider Encounter Details Date Type Department Care Team (Late st Contact Info) Description 08/16/2021 Orders Only [facility] Scanning, Provider Social History Tobacco Use Types Packs/Day Years Used Date Smoking Tobacco: Former Cigarettes Q uit: 12/19/1993 Smokeless Tobacco: Never Sex and Gender Information Value Date Recorded Sex Assigned at Not on file Legal 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 Gender Identity Male 02/26/2020 6:57 AM CDT Sexual Orientation Straight 02/26/2020 6: 57 AM CDT documented as of this encounter Plan of Treatment Not on file documented as of this encounter Procedures Procedure Name Priority Date/Time Associated Diagnosis Comments SCAN - LABS 08/16/2021 documented in this encounter Results * SCAN - LABS (08/16/2021) us Provider Scanning Final Result documented in this encounter Visit Diagnoses Not on filedocumented in this encounter Care Teams Graduate Studies Dean Relationship Specialty Start Date End Date Bhargavi Tena MD [address] [facility] [address] [place], [place] [phone] PCP - General Family Medicine 11/30/20 Lora Bajwa MD [facility] [place] [address] Referring Physician Family Practice 11/20/18 documented as of this encounter
--- OUTSIDE RECORDS SUMMARY | 2024-08-12 07:16 | XMS_ITS | Encounter Summary ---
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 Name Role Phone Lora Bajwa MD Unavailable + [phone] Bhargavi Tena MD Primary Care Provider Encounter Details Date Type Department Care Team (Late st Contact Info) Description 11/16/2021 Orders Only [facility] Scanning, Provider Social History Tobacco Use Types Packs/Day Years Used Date Smoking Tobacco: Former Cigarettes Q uit: 12/19/1993 Smokeless Tobacco: Never Sex and Gender Information Value Date Recorded Sex Assigned at Not on file 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 Gender Identity Male 02/26/2020 6:57 AM CDT Sexual Orientation Straight 02/26/2020 6: 57 AM CDT documented as of this encounter Plan of Treatment Not on file documented as of this encounter Procedures Procedure Name Priority Date/Time Associated Diagnosis Comments SCAN - LABS 11/16/2021 documented in this encounter Results * SCAN - LABS (11/16/2021) us Provider Scanning Final Result documented in this encounter Visit Diagnoses Not on filedocumented in this encounter Care Teams Horseshoer Relationship Specialty Start Date End Date Bhargavi Tena MD [address] [facility] [address] [place], [place] [phone] PCP - General Family Medicine 11/30/20 Lora Bajwa MD [facility] [place] [address] Referring Physician Family Practice 11/20/18 documented as of this encounter
--- OUTSIDE RECORDS SUMMARY | 2024-08-12 07:16 | XMS_ITS | Continuity of Care Document ---
Author Name [facility] Organization [facility] Care Team Providers Care Tile Roofer Name Role Phone [facility] Unavailable Unavailable Problems Combined list of problems from Department of Defense and Veterans Affairs facilities. It does not include entries that were removed or entered in error. Problem Status Onset Date Problem Type Date of Resolution Comments Source headache syndromes Active Condition DoD Administrative Evaluation Services Inactive Condition DoD cataract senile combined forms Active Condition DoD dermatochalasis both eyelids Active Condition DoD anisometropia Active Condition DoD plantar fasciitis Active Condition DoD dermatophytosis Active Condition DoD Outpatient Physician Consultation Active Condition DoD dermatology non-infectious conditions Inactive Condition DoD hearing loss Active Condition DoD allergic rhinitis Active Condition DoD visit for: refer patient without exam or treatment Inactive Condition DoD visit for: issue repeat prescription Inactive Condition DoD Imaging Studies Inactive Condition DoD anomalies of gallbladder, bile ducts, and liver Active Condition DoD inguinal hernia Inactive Condition DoD backache Active Condition DoD sciatica Active Condition DoD astigmatism regular Active Condition Do D Retinal Telangiectasia Active Condition DoD visit for: issue repeat prescription for medication Inactive Condition DoD sinusitis acute Inactive Condition DoD diabetes mellitus Active Condition DoD skin disorders Inactive Condition DoD Serum Prostate-specific Antigen (PSA) Elevated Active Condition DoD dermatophytosis tinea cruris Active Condition DoD cataract senile both eyes Active Condition DoD presbyopia Active Condition DoD astigmatism Active Condition DoD refractive error - hypermetropia Active Condition DoD refractive error - myopia Active Condition 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 Condition DoD joint pain, localized in the elbow Inactive Condition DoD diabetes mellitus type 2 Active Condition DoD visit for: administrative purpose Inactive Condition DoD lightheadedness Inactive Condition DoD joint stiffness of the shoulder Inactive Condition DoD hypertension systemic Active Condition DoD testicular neoplasm Active Condition Do D essential hypertension Active Condition DoD Other Physical Therapy Active Condition DoD chest pain or discomfort Active Condition DoD herniated disc (C5 - C6) Active Condition DoD chest pain or discomfort reported as discomfort Inactive Condition DoD cervicalgia Active Condition DoD Laboratory Studies Active Condition DoD obesity Active Condition OBESITY RT EXCESSIVE ENERGY INTAKE AEB HIS ABOVE NORMATIVE STANDARD BMI FOR AGE AND GENDER. DoD Patient Education Diabetes Dietary Counseling Active Condition Believe pt has a better understanding of how to eat healthfully and he will begin to incorporate today's recommendations into his diet. DoD hyperlipidemia Active Condition ELEVA SAWYER LIPIDS RT OBESITY AND EXCESSIVE FAT INTAKE AEB HIS ELEVATED TOTAL AND LDL CHOLESTEROL. DoD impaired fasting glucose Active Condition ALTERED GLUCOSE RT OBESITY AEB HIS ELEVATED FBG. [facility] routine history and physical adult (18 - 64 yrs) Inactive Condition PE WNL; pt taug ht self testicular exam no urinary symptoms at this time DoD visit for: laboratory Inactive Condition entered per pt request for physical DoD seborrheic keratosis Active Condition cyrotherapy on right mid flank and right posterior arm x 2 freeze thaw cycles; pt reassured benign DoD actinic keratosis Inactive Condition DoD abdominal pain in multiple locations Active Condition Unclear e tiology. Report of virtual colonoscopy reviewed, which does indeed comment on a small umbilical hernia w/fat as well as a small L inguinal hernia, neither of which were appreciated on my physical exam today. Certainly these (and most likely, if DoD acrochordon Active Condition follow u p as needed DoD skin: rash [as Sx] Active Condition b land soaps, no scratching, emollient cream and elidel as needed. Follow up if sx's worsen or don't resolve. DoD visit for: screening malignant neoplasm colon Inactive Condition referred for eval and treatment [facility] Preventive Medicine Established Patient Checkup Adult 40-64 Years Inactive Condition Need to work on diet and eercise and repeat lipid lab in 4 months DoD viral syndrome Inactive Condition take NSAIDS/tylenol; increase PO fluids and good hand washingletter for work given; pt to go back to work or Sunday DoD Blood Pressure Isolated Elevated Inactive Condition monitor an d f/u > 130/80 [facility] Body mass index 30+ - obesity Active Condition [facility] Diabetes Mellitus Type 2 ([facility] [id number]) Active Condition [facility] Hyperlipidemia Active Condition [facility] Hyperlipidemia ([facility] [id number]) Active Condition [facility] Hypertension Active Condition [facility] Inflammatory arthritis Active Condition [facility] Sensorineural hearing loss, bilateral Active Condition [facility] Type 1 diabetes mellitus without complication Inactive Condition 01/09/2018 [facility] Diagnosis: ICD-10-CM Z00.00 Encntr for general adult medical exam w/o abnormal findings Active Diagnosis [facility] Diagnosis: ICD-10-CM H90.A31 Mix cndct/snrl hear loss,uni,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 Active Diagnosis [facility] Medications Combined list of outpatient medications from Department of Defense and Veterans Affairs facilities.Medications provided include 1) outpatient medications from the last 15 months, and 2) patient-reported medications. Medication Details Route Status Patient Instructions Prescription Expires Prescription Number Last Dispense Date Ordering Provider Order Date Order Qty Source amLODIPine 5 mg tablet 5 mg, Oral, # 90 EA, 0 total refill(s ), Hard Stop Oral (given by mouth) Discont inued 06/09/2024 4 2023 90.0 Ambulat ory Pharmac y amLODIPine 5 mg tablet 5 mg, Oral, Daily, # 90 EA, 0 total refill(s ), Hard Stop Oral (given by mouth) Ordered 09/08/2024 5 2024 90.0 Ambulat ory Pharmac y AMOXICILLIN (AMOXICILLI N), 875MG, TABLET, ORAL, [employer], 100 ea. BOTTLE Cancele d [id number] : 2022 0 Pharmac y Data Transac tion Service Facilit y ASPIRIN 81MG TAB,EC TAKE ONE TABLET BY MOUTH ONCE A DAY ORAL ACTIVE BEAR FERNANDEZ MA [address] [facility] aspirin EC 81 mg tablet 81 mg, Oral, Daily, # 90 EA, 1 total refill(s ), Hard Stop Oral (given by mouth) Ordered 06/09/2025 5 2024 90.0 Ambulat ory Pharmac y aspirin EC 81 mg tablet 81 mg, Oral, Daily, # 90 EA, 1 total refill(s ), Hard Stop Oral (given by mouth) Discont inued 06/30/2024 4 2024 90.0 Ambulat ory Pharmac y aspirin EC 81 mg tablet 81 mg, Oral, Daily, # 90 EA, 1 total refill(s ), Hard Stop Oral (given by mouth) Ordered 12/28/2024 4 2023 90.0 Ambulat ory Pharmac y CATAPRES (BRAND) 0.1 MG ORAL TAB May cause drowsine ss.Be careful if taking OTCs.Dwayne e or use exactly as directed . Active 09/11/2024 [id number] 4 2023 90 [employer] Travis OLIVEROS ([facility] cefdinir 300 mg capsule 300 mg, Oral, every 12 hr, # 20 EA, 0 total refill(s ), Hard Stop Oral (given by mouth) Complet ed 03/28/2024 4 2023 20.0 Ambulat ory Pharmac y CETIRIZINE HCL 10MG TAB TAKE ONE TABLET BY MOUTH ONCE A DAY ORAL ACTIVE NNAMDI AUSTIN 2017 [facility] CIPROFLOXAC IN HCL (CIPROFLOXA TORI HCL), 500MG, TABLET, ORAL, [employer] PHARM, 100 ea. BOTTLE Active [id number] 4 2023 14 Pharmac y Data Transac tion Service Facilit y cloNIDine 0.1 mg tablet See Instruct ions, # 180 EA, 1 total refill(s ), Acute Complet ed 10/01/2023 3 2023 180.0 Ambulat ory Pharmac y cloNIDine 0.1 mg tablet 0.1 mg, # 180 EA, 0 total refill(s ), Hard Stop Discont inued 05/01/2023 3 2022 180.0 Ambulat ory Pharmac y cloNIDine 0.1 mg tablet 0.1 mg, Oral, # 90 EA, 1 total refill(s ), Hard Stop Oral (given by mouth) Ordered 12/28/2024 4 2023 90.0 Ambulat ory Pharmac y cloNIDine 0.1 mg tablet See Instruct ions, # 90 EA, 0 total refill(s ), Hard Stop Discont inued 12/31/2023 4 2023 90.0 Ambulat ory Pharmac y CLONIDINE HCL 0.1MG TAB TAKE ONE TABLET BY MOUTH AT BEDTIME ORAL ACTIVE HUMA LIRIANO 2023 [facility] ECONAZOLE NITRATE (ECONAZOLE NITRATE), 1%, CREAM(GM), TOPICAL, [employer] 85 g TUBE Active [id number] 4 2023 85 Pharmac y Data Transac tion Service Facilit y ECONAZOLE NITRATE (ECONAZOLE NITRATE), 1%, CREAM(GM), TOPICAL, [employer] [place], 85 g TUBE Cancele d [id number] : 2023 0 Pharmac y Data Transac tion Service Facilit y ECONAZOLE NITRATE (ECONAZOLE NITRATE), 1%, CREAM(GM), TOPICAL, [employer] [place], 85 g TUBE Active [id number] 3 2022 85 Pharmac y Data Transac tion Service Facilit y ECONAZOLE NITRATE 1% CREAM,TOP APPLY THIN FILM TO AFFECTED AREA(S) ONCE A DAY TOPICA L ACTIVE HUMA LIRIANO 2023 [facility] ESOMEPRAZOL E 20MG (BASE) CAP,EC TAKE 1 CAPSULE BY MOUTH EVERY MORNING BEFORE A MEAL ORAL ACTIVE NNAMDI AUSTIN 2017 [facility] FLUoxetine 20 mg capsule 20 mg, Oral, Daily, # 90 EA, 1 total refill(s ), Hard Stop Oral (given by mouth) Ordered 03/17/2025 4 2023 90.0 Ambulat ory Pharmac y FLUOXETINE HCL (FLUOXETINE HCL), 20MG, CAPSULE, ORAL, [employer], 1000 ea. BOTTLE Active [id number] 4 2023 90 Pharmac y Data Transac tion Service Facilit y FLUOXETINE HCL (FLUOXETINE HCL), 20MG, CAPSULE, ORAL, [employer], 1000 ea. BOTTLE Active [id number] 4 2023 90 Pharmac y Data Transac tion Service Facilit y FLUOXETINE HCL 20MG CAP TAKE 1 CAPSULE BY MOUTH EVERY MORNING ORAL ACTIVE HUMA LIRIANO 2023 [facility] folic acid 1 mg tablet See Instruct ions, Oral, Daily, # 90 EA, 3 total refill(s ), Hard Stop Oral (given by mouth) Complet ed 02/14/2024 4 2023 90.0 Ambulat ory Pharmac y folic acid 1 mg tablet 1 mg, Oral, Daily, # 90 EA, 1 total refill(s ), Hard Stop Oral (given by mouth) Ordered 03/17/2025 4 2023 90.0 Ambulat ory Pharmac y FOLIC ACID 1MG TAB TAKE ONE TABLET BY MOUTH ONCE A DAY ORAL ACTIVE BEAR FERNANDEZ MA 2016 [facility] GOLIMUMAB 100MG/ML INJ SMARTJECT INJECT 100MG/1M L UNDER THE SKIN ONE-TIME SUBCUT ANEOUS ACTIVE HUMA LIRIANO 2023 [facility] HYDROCHLORO THIAZIDE 12.5MG/IRBE SARTAN 300MG TAB TAKE ONE TABLET BY MOUTH ONCE A DAY ORAL ACTIVE HUMA LIRIANO 2023 [facility] hydroxychlo roquine 200 mg tablet 200 mg, Oral, BID, # 180 EA, 3 total refill(s ), Hard Stop Oral (given by mouth) Complet ed 02/14/2024 4 2023 180.0 Ambulat ory Pharmac y hydroxychlo roquine 200 mg tablet 200 mg, Oral, BID, # 180 EA, 1 total refill(s ), Hard Stop Oral (given by mouth) Ordered 03/17/2025 4 2023 180.0 Ambulat ory Pharmac y HYDROXYCHLO ROQUINE SO4 200MG TAB TAKE ONE-HALF TABLET BY MOUTH TWICE A DAY ORAL ACTIVE NNAMDI AUSTIN 2017 [facility] ipratropium 21 mcg/inh nasal spray [30mL] See Instruct ions, # 30 mL, 0 total refill(s ), Hard Stop Discont inued 06/09/2024 4 2023 30.0 Ambulat ory Pharmac y ipratropium 21 mcg/inh nasal spray [30mL] See Instruct ions, # 30 mL, 0 total refill(s ), Hard Stop Complet ed 06/14/2024 4 2023 30.0 Ambulat ory Pharmac y IRBESARTAN- HYDROCHLORO THIAZIDE (IRBESARTAN /HYDROCHLOR OTHIAZIDE), 300-12.5MG, TABLET, ORAL, [employer], 30 ea. BOTTLE Active [id number] 4 2023 90 Pharmac y Data Transac tion Service Facilit y IRBESARTAN- HYDROCHLORO THIAZIDE (IRBESARTAN /HYDROCHLOR OTHIAZIDE), 300-12.5MG, TABLET, ORAL, [employer]MA, 30 ea. BOTTLE Active [id number] 4 2023 90 Pharmac y Data Transac tion Service Facilit y metHOTREXat e (U/D) 2.5 MG ORAL TAB Do not drink alcohol. Avoid exposure to sun.Take or use exactly as directed .Obtain advice for OTCs.Do not take if . Active 08/14/2024 [id number] 4 2023 120 [facility] Travis OLIVEROS ([facility] methotrexat e 2.5 mg tablet See Instruct ions, # 108 EA, 3 total refill(s ), Hard Stop Discont inued 08/16/2023 3 2023 108.0 Ambulat ory Pharmac y methotrexat e 2.5 mg tablet See Instruct ions, # 108 EA, 1 total refill(s ), Hard Stop Discont inued 02/14/2023 3 2022 108.0 Ambulat ory Pharmac y methotrexat e 2.5 mg tablet See Instruct ions, # 120 EA, 1 total refill(s ), Hard Stop Ordered 03/17/2025 4 2023 120.0 Ambulat ory Pharmac y methotrexat e 2.5 mg tablet See Instruct ions, # 120 EA, 3 total refill(s ), Hard Stop Discont inued 03/17/2024 4 2023 120.0 Ambulat ory Pharmac y METHOTREXAT E NA 2.5MG TAB TAKE FOUR TABLETS BY MOUTH EVERY WEEK ORAL ACTIVE HUMA LIRIANO 2023 [facility] METRONIDAZO LE (metronidaz ole), 375 MG, CAPSULE, ORAL, ALEMBIC PHARMAC, 50 ea. BOTTLE Active [id number] 4 2023 14 Pharmac y Data Transac tion Service Facilit y omeprazole DR 40 mg capsule 40 mg, Oral, Daily, # 90 EA, 0 total refill(s ), Hard Stop Oral (given by mouth) Ordered 09/08/2024 5 2024 90.0 Ambulat ory Pharmac y omeprazole DR 40 mg capsule See Instruct ions, # 90 EA, 0 total refill(s ), Hard Stop Discont inued 06/30/2024 4 2024 90.0 Ambulat ory Pharmac y omeprazole DR 40 mg capsule 40 mg, Oral, Daily, # 90 EA, 0 total refill(s ), Hard Stop Oral (given by mouth) Discont inued 06/09/2024 4 2023 90.0 Ambulat ory Pharmac y OXYCODONE-A CETAMINOPHE N (OXYCODONE HCL/ACETAMI NOPHEN), 5MG-325MG, TABLET, ORAL, MALLINKRT PHARM, 500 ea. BOTTLE Active [id number] 3 2022 30 Pharmac y Data Transac tion Service Facilit y OXYCODONE-A CETAMINOPHE N (OXYCODONE HCL/ACETAMI NOPHEN), 5MG-325MG, TABLET, ORAL, MALLINKRT PHARM, 500 ea. BOTTLE Active [id number] 3 2022 30 Pharmac y Data Transac tion Service Facilit y OXYCODONE-A CETAMINOPHE N (OXYCODONE HCL/ACETAMI NOPHEN), 5MG-325MG, TABLET, ORAL, MALLINKRT PHARM, 500 ea. BOTTLE Cancele d [id number] : 2022 0 Pharmac y Data Transac tion Service Facilit y rosuvastati n (U/D) 10 MG ORAL TAB Do not take with milk, antacids , or iron.Dwayne e or use exactly as directed .Do not take if . Active 09/11/2024 [id number] 4 2023 90 [employer] Travis OLIVEROS ([facility] rosuvastati n 10 mg tablet 10 mg, Oral, Daily, # 90 EA, 1 total refill(s ), Hard Stop Oral (given by mouth) Ordered 03/17/2025 4 2023 90.0 Ambulat ory Pharmac y rosuvastati n 10 mg tablet 10 mg, Oral, Daily, # 90 EA, 1 total refill(s ), Hard Stop Oral (given by mouth) Discont inued 03/17/2024 4 2023 90.0 Ambulat ory Pharmac y ROSUVASTATI N CA 20MG TAB TAKE ONE-HALF TABLET BY MOUTH EVERY EVENING ORAL ACTIVE HUMA LIRIANO 2023 [facility] sildenafil 100 mg tablet 100 mg, Oral, Daily, # 30 EA, 0 total refill(s ), Hard Stop Oral (given by mouth) Complet ed 07/10/2024 5 2024 30.0 Ambulat ory Pharmac y sildenafil 100 mg tablet See Instruct ions, 0, # 30 EA, 0 total refill(s ), Hard Stop Discont inued 06/30/2024 4 2024 30.0 Ambulat ory Pharmac y sildenafil 100 mg tablet See Instruct ions, # 30 EA, 0 total refill(s ), Hard Stop Complet ed 03/29/2024 4 2023 30.0 Ambulat ory Pharmac y sildenafil 100 mg tablet 100 mg, Oral, Daily, # 30 EA, 0 total refill(s ), Hard Stop Oral (given by mouth) Discont inued 12/31/2023 3 2023 30.0 Ambulat ory Pharmac y traZODone 50 mg tablet 50 mg, Oral, every day at bedtime, # 30 EA, 0 total refill(s ), Hard Stop Oral (given by mouth) Complet ed 04/17/2024 4 2023 30.0 Ambulat ory Pharmac y Allergies, Adverse Reactions, Alerts Combined list of allergies from Department of Defense and Veterans Affairs facilities. It does not include entries that were removed or entered in error. Substance Category Reaction Severity Reaction type Status Date Reported Comments Source NO OUTPUT FOR NCID [id number] Drug allergy (disorder) active 01/31/2008 [facility] Travis OLIVEROS ([facility] Immunizations Combined list of available immunizations from the Department of Defense and Veterans Affairs facilities. Immunization Series Date Given Administered By Site Reaction Lot Number CVX Code Drug [employer] Assembler Status Comments Source PNEUMOCOCCAL CONJUGATE PCV20, POLYSACCHARID E [id number] CONJUGATE, ADJUVANT, PF 2023 BOYD LITTLE LEFT DELTO ID [id number] 216 complet [facility] TDAP 2023 BOYD LITTLE RIGHT DELTO ID [id number] 115 complet [facility] COVID-19 (MODERNA), MRNA, LNP-S, PF, 50 MCG/0.5 ML (AGES 12+ YEARS) 2022 312 complet [facility] N INFLUENZA, UNSPECIFIED FORMULATION 2022 88 complet [facility] RSV, RECOMBINANT, PROTEIN SUBUNIT RSVPREF, ADJUVANT RECONSTITUTED , 0.5 ML, PF 2022 303 complet [facility] DIVISIO N INFLUENZA, UNSPECIFIED FORMULATION 2022 88 complet [facility] DIVIO N ZOSTER RECOMBINANT 2 2022 187 complet [facility] DIVISIO N ZOSTER RECOMBINANT 1 2021 187 [facility] COVID-19 (MODERNA), MRNA, LNP-S, BIVALENT, PF, 50 MCG/0.5 ML OR 25MCG/0.25 ML DOSE 1 2021 229 complet [facility] COVID-19, mRNA, LNP-S, PF, 100 mcg or 50 mcg dose 2021 RUDD, Moderna US, Inc. (MOD) Not Given COVID-19, mRNA, LNP-S, PF, 100 mcg or 50 mcg dose [facility] COVID-19 (MODERNA), MRNA, LNP-S, PF, 100 MCG/0.5ML DOSE OR 50 MCG/0.25ML DOSE 2021 207 complet ed [facility] influenza, high-dose, quadrivalent 2020 SHUN, () Not Given influenza , high-dose , quadrival ent DoD COVID-19, mRNA, LNP-S, PF, 100 mcg or 50 mcg dose 2020 RUDD, Moderna US, Inc. (MOD) Not Given COVID-19, mRNA, LNP-S, PF, 100 mcg or 50 mcg dose DoD COVID-19 (MODERNA), MRNA, LNP-S, PF, 100 MCG/0.5ML DOSE OR 50 MCG/0.25ML DOSE 3 2020 207 complet ed [facility] COVID-19 (MODERNA), MRNA, LNP-S, PF, 100 MCG/0.5ML DOSE OR 50 MCG/0.25ML DOSE 2 2020 207 complet ed [facility] COVID-19 (MODERNA), MRNA, LNP-S, PF, 100 MCG/0.5ML DOSE OR 50 MCG/0.25ML DOSE 1 2020 207 complet ed [facility] pneumococcal polysaccharid e, 23 valent 2019 zzLef t Arm [id number] [employer] Company Inc complet ed pneumococ trevro polysacch aride, 23 valent 05/18/20 Given Ambulat ory Pharmac y pneumococcal polysaccharid e vaccine, 23 valent 1 2019 Unknown, Provider [id number] Merck (MSD) complet ed pneumococ trevor polysacch aride vaccine, 23 valent DoD PNEUMOCOCCAL POLYSACCHARID E PPV23 2019 33 [facility] influenza virus vaccine, unspecified 2019 TRANSCR IBED 88 complet ed influenza virus vaccine, unspecifi ed 02/19/20 Given Ambulat ory Pharmac y Influenza, injectable, MDCK, preservative free, quadrivalent 2019 ALUL, () Not Given Influenza , injectabl e, MDCK, preservat ezio free, quadrival ent [facility] influenza virus vaccine, unspecified formulation 1 2019 Unknown, Provider 88 Transcribed (TRS) complet ed influenza virus vaccine, unspecifi ed formulati on DoD influenza, injectable, quadrivalent- pf 2018 150 GlaxoSmithK[employer] ne complet ed influenza , injectabl e, quadrival ent-pf 03/19/19 Given Ambulat ory Pharmac y influenza, seasonal, injectable 2018 TRANSCR IBED 141 complet ed influenza , seasonal, injectabl e 03/19/19 Given Ambulat ory Pharmac y Influenza, seasonal, injectable 1 2018 Unknown, Provider 141 Transcribed (TRS) complet ed Influenza , seasonal, injectabl e DoD INFLUENZA, INJECTABLE, QUADRIVALENT, PRESERVATIVE FREE 2018 150 complet ed Partner: [facility]. Administe red by: RIMA WONG (VIB=[phone]). Partner 7 Lot#: [id number] Mfr: GlaxoSmit hKline; Dosage: 0.5 [facility] influenza, injectable, quadrivalent- pf 2017 zzLef t Arm [id number] 150 [employer] complet ed influenza , injectabl e, quadrival ent-pf 04/11/18 Given Ambulat ory Pharmac y Influenza, injectable, quadrivalent, preservative free 1 2017 Unknown, Provider [id number] 150 Se[employer]irus (SEQ) complet ed Influenza , injectabl e, quadrival ent, preservat ezio free DoD Influenza, inj, MDCK, quadrivalent- pf 2016 zzLef t Arm [id number] 171 [employer] complet ed Influenza , inj, MDCK, quadrival ent-pf 05/08/17 Given Ambulat ory Pharmac y Influenza, injectable, Madin [place] Canine Kidney, preservative free, quadrivalent 1 2016 Unknown, Provider [id number] 171 [employer] (SEQ) complet ed Influenza , injectabl e, Madin Judi Canine Kidney, preservat ezio free, quadrival ent DoD ZOSTER LIVE 2016 121 complet ed [facility] influenza, seasonal, injectable-pf 2015 zzLef t Arm [id number] 140 [employer] complet ed influenza , seasonal, injectabl e-pf 03/13/16 Given Ambulat ory Pharmac y Influenza, seasonal, injectable, preservative free 1 2015 Unknown, Provider [id number] 140 [employer] (SEQ) complet ed Influenza , seasonal, injectabl e, preservat ezio free DoD NOVEL INFLUENZA-H1N 1-09 1 2014 127 complet ed [facility] PNEUMOCOCCAL POLYSACCHARID E PPV23 1 2014 33 complet ed [facility] pneumococcal polysaccharid e, 23 valent 2014 zzLef t Arm [id number] 33 Merck & Company Inc complet ed pneumococ trevor polysacch aride, 23 valent 03/15/15 Given Ambulat ory Pharmac y influenza, seasonal, injectable-pf 2014 zzLef t Arm [id number] 140 [employer] complet ed influenza , seasonal, injectabl e-pf 03/15/15 Given Ambulat ory Pharmac y pneumococcal polysaccharid e vaccine, 23 valent 1 2014 Unknown, Provider [id number] Merck (MSD) complet ed pneumococ trevor polysacch aride vaccine, 23 valent DoD Influenza, seasonal, injectable, preservative free 1 2014 Unknown, Provider [id number] [employer] (CSL) complet ed Influenza , seasonal, injectabl e, preservat ezio free DoD PNEUMOCOCCAL POLYSACCHARID E PPV23 2014 33 complet ed [facility] Influenza, seasonal, injectable 2013 TATIANA SPRINGER () Not Given Influenza , seasonal, injectabl e DoD tetanus, diphtheria, acellular pertu is 2013 TRANSCR IBED 115 complet ed tetanus, diphtheri a, acellular pertussis 08/28/13 Given Ambulat ory Pharmac y tetanus toxoid, reduced diphtheria toxoid, and acellular pertu is vaccine, adsorbed 1 2013 Unknown, Provider 115 Transcribed (TRS) complet ed tetanus toxoid, reduced diphtheri a toxoid, and acellular pertussis vaccine, adsorbed DoD TDAP 2013 115 complet ed [facility] zoster vaccine live 2011 zzLef t Arm [id number] Merck & Company Inc complet ed zoster vaccine live 05/24/12 Given Ambulat ory Pharmac y zoster vaccine, live 1 2011 Unknown, Provider [id number] Merck (MSD) complet ed zoster vaccine, live DoD influenza, seasonal, injectable 2010 zzRig ht Arm [id number] 141 sanofi pasteur complet ed influenza , seasonal, injectabl e 03/17/11 Given Ambulat ory Pharmac y tetanus, diphtheria, acellular pertu is 2010 zAmbreenef t Arm [id number] 115 GlaxoSmithKli ne complet ed tetanus, diphtheri a, acellular pertussis 03/17/11 Given Ambulat ory Pharmac y tetanus toxoid, reduced diphtheria toxoid, and acellular pertu is vaccine, adsorbed 1 2010 Unknown, Provider [id number] 115 [employer] (SKB) complet ed tetanus toxoid, reduced diphtheri a toxoid, and acellular pertussis vaccine, adsorbed DoD Influenza, seasonal, injectable 3 2010 Unknown, Provider [id number] 141 Sanofi Pasteur (PMC) complet ed Influenza , seasonal, injectabl e DoD influenza virus vaccine, whole virus 1998 [id number] [employer] complet ed influenza virus vaccine, whole virus 04/09/99 Given Ambulat ory Pharmac y influenza virus vaccine, whole virus 1 1998 Unknown, Provider [id number] [facility] influenza virus vaccine, whole virus DoD influenza virus vaccine, whole virus [id number] 16 [facility] complet ed influenza virus vaccine, whole virus 08/03/98 Given Ambulat ory Pharmac y influenza virus vaccine, whole virus 1 1998 Unknown, Provider [id number] [facility] 1928–1983t (CON) complet ed influenza virus vaccine, whole virus DoD hepatitis A adult vaccine 1995 TRANSCR IBED 52 complet ed hepatitis A adult vaccine 03/14/96 Given Ambulat ory Pharmac y hepatitis A vaccine, adult dosage 1 1995 Unknown, Provider 52 Transcribed (TRS) complet ed hepatitis A vaccine, adult dosage DoD Vital Signs Combined list of inpatient and outpatient Vital Signs from Department of Defense and Veterans Affairs, ranging from 12 months to all on record, depending upon the facility. Vital Sign Value Date Comments Source SYSTOLIC BLOOD PRESSURE 138 02/20/2024 08:14:[facility] DIASTOLIC BLOOD PRESSURE 78 02/20/2024 08:14:[facility] PULSE OXIMETRY 96 02/20/2024 08:14:26 [facility] WEIGHT 263.8 02/20/2024 08:14:[facility] BMI 36 kg/m2 02/20/2024 08:14[facility] PAIN 3 02/20/2024 08:14[facility] HEIGHT 72 02/20/2024 08:14:[facility] TEMPERATURE 97.8 02/20/2024 08:14:[facility] PULSE 76 02/20/2024 08:14:[facility] RESPIRATION 20 02/20/2024 08:14:[facility] Encounters Combined list of: 1) Encounters from Department of Veterans Affairs facilities going backup to the last 18 months, not all [place] inpatient encounters are included; 2) Encounters from the Department of [facility] facilities going backup to 280 months. Location Location Details Encounter Type Encounter Number Reason For Visit Attending Provider ADM Date DC Date Status Disposition Source [address] [place] [address] [facility] Practice Non-GME FHI2) OUTPATIENT [id number] scaly spot on ear TEE BYRNE 12/12 Released w/o Limitations [address] [place] [address] Travis [facility]F amily Practic e Non-GME FHI2) [address] [place] [address] Travis Robby [facility] Practice Non-GME FHI2) OUTPATIENT [id number] persist ant cough TEE BYRNE 09/15 Released w/o Limitations [address] [place] [address] Travis [facility]F amily Practic e Non-GME FHI2) [address] [place] [address] Travis Robby [facility] Non[facility]2) OUTPATIENT [id number] routine physica l check up TEE BYRNE 10/05 Released w/o Limitations [address] [place] [address] Travis [facility]F amily Practic e Non-GME FHI2) [address] [place] [address] [facility] Practice Non-GME FHI2) OUTPATIENT [id number] Lt Eye - C/O a growth or spot? SANJEEV ANISA L 04/13 Released w/o Limitations [facility])(F amily Practic e Non-GME FHI2) [address] [place] [address] [facility])([facility] lisbeth Practice Non-GME FHI2) OUTPATIENT [id number] stomach pain both sides WALLACE BEGUM 06/05 Released w/o Limitations [facility])(F amily Practic e Non-GME FHI2) [address] [place] [address] Travis B [facility] lisbeth Practice Non-GME FHI2) OUTPATIENT [id number] wants derm referal for skin lesions ' GALO ANSARI 01/15 Released w/o Limitations [facility])(F amily Practic e Non-GME FHI2) [address] [place] [address])([facility] Practice Non-GME FHI2) OUTPATIENT [id number] adult physica l [phone]# GALO ANSARI 02/08 Released w/o Limitations [facility])(F amily Practic e Non-GME FHI2) [address] [place] [address] [facility])([facility] Practice Non-GME FHI2) OUTPATIENT [id number] fever, chills [phone] GALO ANSARI 08/06 Released w/o Limitations [facility])(F amily Practic e Non-GME FHI2) [address] [place] [address] [facility])([facility] Medicine) OUTPATIENT [id number] impaire d fasting glucose TONA KENDRICK 08/12 Released w/o Limitations [facility])(N utritio nal Medicin e) [address] [place] [address] [facility])([facility] Practice Non-GME FHI2) OUTPATIENT [id number] [phone] lesions on face spreadi ng GALO ANSARI 10/22 Released w/o Limitations [address] [place] [address] [facility])(F amily Practic e Non-GME FHI2) [employer] ([facility] Non-GME FH) TELE CONSULT [id number] Lab results -- MARY ELLEN Winston 01/30 [employer] ([facility])(F amily Practic e Non-GME FHI2) [facility] [employer] ([facility])([facility] Practice Non-GME FHI2) OUTPATIENT [id number] Eval back pain [phone] GALO Hicks 07/21 Released w/o Limitations [employer] ([facility])(F amily Practic e Non-GME FHI2) [employer] ([facility])(Phy sical Therapy) OUTPATIENT [id number] right arm pain MARIA E HARPER 08/04 Released w/o Limitations [facility] [employer] ([facility])(P hysical Therapy ) [facility] [employer] ([facility])(Sco tt [facility] Team 4) TELE CONSULT [id number] f/u labs and radGALO Martinez 08/06 [facility] [employer] ([facility])(S cott [facility] Team 4) [facility] [employer] ([facility])(Phy sical Therapy) OUTPATIENT [id number] MC MOLINA 08/11 Released w/o Limitations [employer] ([facility])(P hysical Therapy ) [facility] [employer] ([facility])(Phy sical Therapy) OUTPATIENT [id number] JUAN MCNEIL 08/13 Released w/o Limitations [facility] [employer] ([facility])(P hysical Therapy ) [facility] [employer] ([facility])(Phy sical Therapy) OUTPATIENT [id number] MC MOLINA 08/18 Released w/o Limitations [employer] ([facility])(P hysical Therapy ) [facility] [employer] ([facility])(Phy sical Therapy) OUTPATIENT [id number] MC MOLINA 08/20 Released w/o Limitations [facility] [employer] ([facility])(P hysical Therapy ) [facility] [employer] ([facility])(Phy sical Therapy) OUTPATIENT [id number] JUAN MCNEIL 08/24 Released w/o Limitations [employer] ([facility])(P hysical Therapy ) [employer] ([facility])(Phy sical Therapy) OUTPATIENT [id number] MC MOLINA 08/26 Released w/o Limitations [employer] ([facility])(P hysical Therapy ) [employer] ([facility])(Phy sical Therapy) OUTPATIENT [id number] MARIA E HARPER 09/01 Released w/o Limitations [employer] ([facility])(P hysical Therapy ) [employer] ([facility])(Phy sical Therapy) OUTPATIENT [id number] MC MOLINA 09/03 Released w/o Limitations [employer] ([facility])(P hysical Therapy ) [employer] ([facility])(Phy sical Therapy) OUTPATIENT [id number] ARELY CESAR 09/16 Released w/o Limitations [employer] ([facility])(P hysical Therapy ) [employer] ([facility])(Phy sical Therapy) OUTPATIENT [id number] MC MOLINA 09/21 Released w/o Limitations [employer] ([facility])(P hysical Therapy ) [employer] ([facility])(Phy sical Therapy) OUTPATIENT [id number] JUAN MCNEIL 09/23 Released w/o Limitations [employer] ([facility])(P hysical Therapy ) [employer] ([facility])(Phy sical Therapy) OUTPATIENT [id number] MC MOLINA 09/28 Released w/o Limitations [employer] ([facility])(P hysical Therapy ) [employer] ([facility])(Phy sical Therapy) OUTPATIENT [id number] MARIA E HARPER 09/30 Released w/o Limitations [employer] ([facility])(P hysical Therapy ) [employer] ([facility])(Sco tt [facility] Team 4) OUTPATIENT [id number] eval lump L testicl e/discu ss reffera l [phone] cell GALO ANSARI 12/02 Released w/o Limitations [address] [place] [address] Group [facility] [employer] ([facility] Team 4) [address] [place] [address] [employer] [facility]Fam lisbeth Med Tm B Non-AD BCC) TELE CONSULT [id number] Exchang e call BP questio ns MC BEGUM 12/[address] [place] [address] Travis [facility]F amily Med Tm B Non-AD BCC) [address] [place] [address] Travis [facility] Team 4) OUTPATIENT [id number] follow up for blood pressur e [id number] GALO ANSARI 12/29 Released w/o Limitations [address] [place] [address] Travis [facility] Team 4) [address] [place] [address] Travis [facility] Team 4) OUTPATIENT [id number] F/U BP and cholest deborah [phone] KRISTY PURDY 03/09 Released w/o Limitations [address] [place] [address] Travis [facility] ([facility] Team 4) [address] [place] [address] Travis [facility]Fam lisbeth Med Tm B Non-AD BCC) TELE CONSULT [id number] Lab results -- MARY ELLEN Mays 03/[address] [place] [address] Travis [facility]F amily Med Tm B Non-AD BCC) [address] [place] [address] [employer] [facility] Team 4) TELE CONSULT [id number] feels light headed taking new meds. AZEB GRACIA 03/[address] [place] [address] [employer] ([facility])([facility] Team 4) [address] [place] [address] [employer] [facility] Team 4) OUTPATIENT [id number] lab f/u-med refill KRISTY PURDY 04/23 Released w/o Limitations [address] [place] [address] [employer] ([facility])([facility] Team 4) [address] [place] [address] [employer] [facility] Team 4) TELE CONSULT [id number] Per CHILD MONITOR AZEB Sheldon 05/07 [employer] ([facility] Team 4) [facility] [employer] ([facility])([facility] Team 4) TELE CONSULT [id number] Rad Results HAYLEESMITHKRISTY Dulce 05/24 [facility] [employer] ([facility])([facility] Team 4) [facility] [employer] ([facility])([facility] Team 4) OUTPATIENT [id number] f/u for medicat ion [phone] RAJWINDER KRISTY L 07/12 Released w/o Limitations [employer] ([facility])([facility] Team 4) [facility] [employer] [facility] [facility] Team 4) TELE CONSULT [id number] Med Refill - AZEB Woo 08/[address] [place] [address] [facility] [employer] ([facility])([facility] Team 4) [address] [place] [address] Travis [facility]War rior Op Med Cln Tm A Ad) OUTPATIENT [id number] f/u Hyperte nsion [phone] RAJWINDER KRISTY L 10/08 Released w/o Limitations [facility]W arrior Op Med Cln Tm A Ad) [facility]War rior Op Med Cln Tm A Ad) TELE CONSULT [id number] Disease Mgt note. MJ RENDON 10/11 [facility] [employer] [facility]W arrior Op Med Cln Tm A Ad) [facility] Medical [facility] [employer] [facility]Opt ometry) OUTPATIENT [id number] diabete s NIKO TAYLOR 10/25 Released w/o Limitations [facility] [employer] ([facility])(O ptometr y) [facility] [employer] [facility] Team 3) OUTPATIENT [id number] Rash [phone] KELLI HERNADEZ 12/15 Released w/o Limitations [employer] ([facility])([facility] Team 3) [facility])(War rior Op Med Cln Tm A Ad) TELE CONSULT [id number] Patient to have urology referra l based on labs from December 2009 AZEB GRACIA 01/10 Referred for Appointment [address] [place] [address] [facility])(W arrior Op Med Cln Tm A Ad) [address] [place] [address])(War rior Op Med Cln Tm A Ad) OUTPATIENT [id number] F/U on lab work [phone] KRISTY PURDY 01/21 Released w/o Limitations [address] [place] [address])(W arrior Op Med Cln Tm A Ad) [address] [place] [address])(War rior Op Med Cln Tm A Ad) TELE CONSULT [id number] Patient lab reviewe d: AZEB GRACIA 01/[address] [place] [address])(W arrior Op Med Cln Tm A Ad) [address] [place] [address])(War rior Op Med Cln Tm A Ad) TELE CONSULT [id number] Pt wants a new referra l for Derm. His contact is [phone]. JUSTICE MJ 02/14 Referred for Appointment [address] [place] [address] Group [facility])(W arrior Op Med Cln Tm A Ad) [address] [place] [address])(War rior Op Med Cln Tm A Ad) TELE CONSULT [id number] Rajwinder -bry -did not mention what it elizabeth s-[phone] EJR AZEB GRACIA 03/[address] [place] [address])(W arrior Op Med Cln Tm A Ad) [address] [place] [address])(War rior Op Med Cln Tm A Ad) TELE CONSULT [id number] F/U Disease Mgt/HX of T2DM/HL P/HTN-P CM PA Rajwinder RENDON MJ 03/03 Referred for Appointment [address] [place] [address])(W arrior Op Med Cln Tm A Ad) [address] [place] [address])(War rior Op Med Cln Tm A Ad) OUTPATIENT [id number] poss sinus infecti on HAYLEECliffKIRSTYDORYKRISTY Dulce 04/08 Released w/o Limitations [address] [place] [address] Group Travis [facility]Rob[facility]W arrior Op Med Cln Tm A Ad) [address] [place] [address] Group [facility])(Sco tt Disease Managemen t) TELE CONSULT [id number] DOMO Purdy / calling regardi ng lab results and if needs meds estela paez [phone] MJ RENDON 05/03 Referred for Appointment [address] [place] [address] Group Travis Robby [facility]S cott Disease Managem ent) [address] [place] [address] Group [facility] Robby [facility])(War rior Op Med Cln Tm A Ad) TELE CONSULT [id number] lab f/u AZEB GRACIA 06/[address] [place] [address] Group [facility])(W arrior Op Med Cln Tm A Ad) [address] [place] [address] [facility])(Sco tt Disease Managemen t) TELE CONSULT [id number] Due f/u apt in Jul 29 w fasting labs/PC M MJ Kenyon 07/11 Referred for Appointment [address] [place] [address] Group Travis [employer] ([facility])(S cott Disease Managem ent) [facility])(War rior Op Med Cln Tm A Ad) OUTPATIENT [id number] f/u blood pressur e [phone] RAJWINDER KRISTY L 08/04 Released w/o Limitations [address] [place] [address] Group [facility])(W arrior Op Med Cln Tm A Ad) [facility])(War rior Op Med Cln Tm A Ad) OUTPATIENT [id number] f/u blood pressur e - [phone] RAJWINDER KRISTY L 08/29 Released w/o Limitations [address] [place] [address] Group [facility])(W arrior Op Med Cln Tm A Ad) [address] [place] [address] Group [facility])(Sco tt Disease Managemen t) TELE CONSULT [id number] needs f/u--PC M MJ Kenyon 09/[address] [place] [address] Group [facility])(S cott Disease Managem ent) [address] [place] [address] [facility])(War rior Op Med Cln Tm A Ad) OUTPATIENT [id number] fu diabete s KRISTY PURDY L 10/07 Released w/o Limitations [address] [place] [address] Group [facility])(W arrior Op Med Cln Tm A Ad) [address] [place] [address] [facility])(Nco tt Disease Managemen t) TELE CONSULT [id number] Due annual Diabeti c Eye exam JUSTICE MJ 10/[address] [place] [address] Group [facility])(S cott Disease Managem ent) [address] [place] [address] [facility])(Opt ometry) OUTPATIENT [id number] Needs annual Diabeti c Eye Exam ANN TAWOODRafa Kaur 10/14 Released w/o Limitations [address] [place] [address] Group [facility])(O ptometr y) [address] [place] [address] [facility])([facility] [place] Internal Medicine Tm) TELE CONSULT [id number] ? Lab order - Ingram - - tsg ABDULAZIZ SONG 01/[address] [place] [address] [facility])(S cott Interna l Medicin e Tm) [facility] Medical [facility])([facility] Internal Medicine Tm) OUTPATIENT [id number] fu medicat ions TEE INGRAM 01/30 Released w/o Limitations [address] [place] [address] [facility])(S cott Interna l Medicin e Tm) [address] [place] [address] [facility])([facility] Internal Medicine Tm) TELE CONSULT [id number] Referra l needed/ Ingram/fxs ABDULAZIZ SONG 02/[address] [place] [address] Group [facility])(S cott Interna l Medicin e Tm) [facility])([facility] Internal Medicine Tm) OUTPATIENT [id number] pain above groin on left side/co mes and goes [id number] DARLYN PRADO 03/13 Released w/o Limitations [address] [place] [address] [facility])(S cott Interna l Medicin e Tm) [address] [place] [address] [facility])([facility] Internal Medicine Tm) TELE CONSULT [id number] pls send ltr MARY ELLEN GEIGER 03/15 Referred for Appointment [address] [place] [address] [facility])(S cott Interna l Medicin e Tm) [address] [place] [address] [facility])([facility] Internal Medicine ) TELE CONSULT [id number] wants the OK to resume Metform in Ingram cad tlt SANJEEV CHELY M 03/[address] [place] [address] [facility])(S cott Interna l Medicin e Tm) [address] [place] [address] [facility])([facility] Internal Medicine ) TELE CONSULT [id number] [facility] MRI and surgery Ingram cad tlt SANJEEV CHELY M 03/[address] [place] [address] [facility])(S cott Interna l Medicin e Tm) [address] [place] [address] [facility])([facility] Internal Medicine ) OUTPATIENT [id number] f/u Back Pain and MRI results TEE INGRAM 03/31 Released w/o Limitations [address] [place] [address] [facility])(S cott Interna l Medicin e Tm) [address] [place] [address] [facility])([facility] Internal Medicine ) OUTPATIENT [id number] Pain in left leg [phone] TEE INGRAM 05/15 Released w/o Limitations [address] [place] [address])(S cott Interna l Medicin e Tm) [address] [place] [address])([facility] Internal Medicine ) TELE CONSULT [id number] Notes Entered by: JOSIE COROAN 26 May [id number] ------- ------- ------- ------- -- Referra l Request /MRI request -Sarita/53 1-9824, /c CHELY Ortega 05/[address] [place] [address] [facility])(S cott Interna l Medicin e Tm) [address] [place] [address] [facility])([facility] Internal Medicine ) TELE CONSULT [id number] Medicat ion renewal - Sarita - /a fter 1530 - [phone] - tsg TEE INGRAM 07/[address] [place] [address] [facility])(S cott Interna l Medicin e Tm) [address] [place] [address])([facility] Internal Medicine ) TELE CONSULT [id number] missing info on CHELY Clifton 07/[address] [place] [address])(S cott Interna l Medicin e Tm) [address] [place] [address])([facility] Internal Medicine ) TELE CONSULT [id number] Notes Entered by: LISANDRO SANTIAGO 01 Sep 2011801 ------- ------- ------- ------- -- Med jacklyn /Sarita/Jasno 1.7624c /CHELY Sanchez 08/[address] [place] [address])(S cott Interna l Medicin e Tm) [address] [place] [address])([facility] Internal Medicine ) OUTPATIENT [id number] 3 mo f/u addrss HCM and Chronic Med Issues (per Dr Ingram) TEE INGRAM 09/14 Released w/o Limitations [address] [place] [address])(S cott Interna l Medicin e Tm) [address] [place] [address])([facility] Internal Medicine ) TELE CONSULT [id number] Notes Entered by: BUBBA CABA 03 Oct [id number] ------- ------- ------- ------- -- Med ABDULAZIZ Jama 10/[address] [place] [address])(S cott Interna l Medicin e Tm) [address] [place] [address])([facility] Internal Medicine ) TELE CONSULT [id number] Notes Entered by: BUBBA CABA 13 Oct [id number] ------- ------- ------- ------- -- Sylvia cardona to Anao CHELY Ovalle 10/[address] [place] [address])(S cott Interna l Medicin e Tm) [address] [place] [address])([facility] Internal Medicine ) TELE CONSULT [id number] Notes Entered by: JOSIE CORONA 06 Nov 2011 0859 ------- ------- ------- ------- -- Иван Ingram/[phone] 03/CHELY Gaming 11/[address] [place] [address])(S cott Interna l Medicin e Tm) [address] [place] [address])([facility] Internal Medicine ) OUTPATIENT [id number] 3 mo f/u DM/TEE [place] 11/19 Released w/o Limitations [address] [place] [address])(S cott Interna l Medicin e Tm) [address] [place] [address])([facility] Internal Medicine ) TELE CONSULT [id number] Notes Entered by: YUMIKO COLLINS 08 Feb 2012 1330 ------- ------- ------- ------- -- Abdi Ingram [facility] CHELY PACE 02/[address] [place] [address])(S cott Interna l Medicin e Tm) [address] [place] [address])([facility] Internal Medicine ) TELE CONSULT [id number] Notes Entered by: PRAVEENA COTTON 21 Feb 2012 1257 ------- ------- ------- ------- -- Sylvia Ingram - [id number] [facility]/t er 3:[id number] [place] [address] CHELY PACE 02/[address] [place] [address])(S cott Interna l Medicin e Tm) [address] [place] [address])([facility] Internal Medicine ) OUTPATIENT [id number] headach e, problem with blood pressur e DANO RICO 03/14 Released w/o Limitations [address] [place] [address])([facility]) [address] [place] [address])([facility] Internal Medicine Tm) TELE CONSULT [id number] Notes Entered by: VICKI VILLA 04 Apr 2012 1120 ------- ------- ------- ------- -- Network Results -OTORHI NOLARY 03/26/12 TEE INGRAM 04/[address] [place] [address])([facility]) [address] [place] [address])([facility] Internal Medicine Tm) TELE CONSULT [id number] Notes Entered by: LARA FULTON 05 Apr 2012 1307 ------- ------- ------- ------- -- Network Results - UROLOGY 2 TEE INGRAM 04/[address] [place] [address] [facility])([facility]) [address] [place] [address])([facility] Internal Medicine Tm) OUTPATIENT [id number] medicat ion renewal s TEE INGRAM 05/13 Released w/o Limitations [address] [place] [address])([facility]) [address] [place] [address])([facility] Internal Medicine Tm) TELE CONSULT [id number] Notes Entered by: Erendira NICE 14 Nov 2012 0701 ------- ------- ------- ------- -- Med refill/ Sarita/[phone] tile 3:30 2 days left ABDULAZIZ SONG 11/[address] [place] [address])([facility]) [address] [place] [address] [facility])([facility] Internal Medicine Tm) OUTPATIENT [id number] spots on right foot and wants to discuss diabete s [id number] TEE INGRAM 12/24 Released w/o Limitations [address] [place] [address] [facility])([facility]) [address] [place] [address])([facility] Disease Managemen t) TELE CONSULT [id number] Notes Entered by: FILEMON JORGE 30 Dec 2012 1520 ------- ------- ------- ------- -- Pt is a 57 y/o showing due and overdue for labs and Dilated Retinal Eye exam. FILEOMN JORGE Andrews 12/[address] [place] [address])(S cott Disease [facility] ent) [address] [place] [address])([facility] Internal Medicine ) TELE CONSULT [id number] Notes Entered by: LISANDRO SANTIAGO 07 Jan 2013 1549 ------- ------- ------- ------- -- Ref renewal /Sarita/31 4.457.4 203 till 1530 or ABDULAZIZ Parish 01/[address] [place] [address])([facility]) [address] [place] [address])(Opt ometry) OUTPATIENT [id number] annual Dilated Retinal Eye exam - GUZMAN Pink 01/14 Released w/o Limitations [address] [place] [address])(O ptometr y) [address] [place] [address])([facility] Internal Medicine ) TELE CONSULT [id number] Notes Entered by: CORBY SORENSEN 20 Jan 2013 0831 ------- ------- ------- ------- -- Lab results /Ingram/(David )[phone] or (C)[phone] TEE INGRAM 01/[address] [place] [address])([facility]) [address] [place] [address])([facility] Internal Medicine ) TELE CONSULT [id number] Notes Entered by: VICKI VILLA 05 Feb 2013 1120 ------- ------- ------- ------- -- Network Results -SARAH CHUNG 02/04/13 TEE INGRAM 02/[address] [place] [address])([facility]) [address] [place] [address])([facility] Internal Medicine ) TELE CONSULT [id number] Notes Entered by: GILBERT JAVIER 11 Mar 2013 1009 ------- ------- ------- ------- -- Network Results - DERMATO LOGY 03/10/13 TEE INGRAM 03/[address] [place] [address])([facility]) [address] [place] [address])([facility] Internal Medicine ) TELE CONSULT [id number] Notes Entered by: CORBY SORENSEN 19 Mar 2013 0955 ------- ------- ------- ------- -- Sylvia villasenor /Sarita/Dragan 8.505.0 241 MARY CARMEN CARY I 03/[address] [place] [address])([facility]) [address] [place] [address])([facility] Internal Medicine ) TELE CONSULT [id number] Notes Entered by: DAILY CARPIO 09 Apr 2013 1445 ------- ------- ------- ------- -- Network Results -UROLOG Y 3 TEE INGRAM 04/[address] [place] [address])([facility]) [address] [place] [address])([facility] Internal Medicine ) TELE CONSULT [id number] Notes Entered by: DUNCAN GREER 05 May 2013 1353 ------- ------- ------- ------- -- Network Results -Podiat ry 02/26/13 TEE INGRAM 05/[address] [place] [address])([facility]) [address] [place] [address])([facility] Internal Medicine ) OUTPATIENT [id number] follow up medicat ion [id number] TEE INGRAM 05/13 Released w/o Limitations [address] [place] [address])([facility]) [address] [place] [address])([facility] Internal Medicine ) TELE CONSULT [id number] Notes Entered by: rEendira NICE 18 Aug 2013 1058 ------- ------- ------- ------- -- ENT referra dulce/Sarita/6 [phone] or [phone] CHELY PACE 08/[address] [place] [address])([facility]) [address] [place] [address])([facility] Internal Medicine ) TELE CONSULT [id number] Notes Entered by: JOSIE CORONA 15 Oct 2013 0734 ------- ------- ------- ------- -- Med Refill- Sarita/618 -[phone] KEN CONWAY 10/[address] [place] [address])([facility]) [address] [place] [address])([facility] Internal Medicine ) OUTPATIENT [id number] painful sore inside mouth; painful to eat [phone] CHET BILL 10/22 Released w/o Limitations [address] [place] [address])([facility]) [address] [place] [address])([facility] Internal Medicine ) TELE CONSULT [id number] Notes Entered by: PAPITO RITTER 22 Oct 2013 1128 ------- ------- ------- ------- -- Lab and X-ray results from 4 KEN CONWAY 10/[address] [place] [address])([facility]) [address] [place] [address])([facility] Internal Medicine ) TELE CONSULT [id number] Notes Entered by: PAPITO RITTER 24 Oct 2013 0747 ------- ------- ------- ------- -- Lab results from 4 CHET BILL 10/[address] [place] [address])([facility]) [address] [place] [address])([facility] Internal Medicine ) TELE CONSULT [id number] Notes Entered by: JULIANO INGRAM 29 Oct 2013 0917 ------- ------- ------- ------- -- Study results VIVIAN BECKER 10/29 Referred for Appointment [address] [place] [address])([facility]) [address] [place] [address])([facility] Internal Medicine ) TELE CONSULT [id number] Notes Entered by: DOMONIQUE CHAN 17 Feb 2014 1350 ------- ------- ------- ------- -- Lab Order Request /Carlos ldcharan/50 5.0241 KEN CONWAY 02/[address] [place] [address])([facility]) [address] [place] [address])([facility] Internal Medicine ) OUTPATIENT [id number] Lab results , annual med refills JOSE J GALLAGHER 03/16 Released w/o Limitations [address] [place] [address])([facility]) [address] [place] [address])([facility] Internal Medicine ) TELE CONSULT [id number] Notes Entered by: CORBY SORENSEN 13 Apr 2014 1238 ------- ------- ------- ------- -- New referra dulce/tam /6 [phone]. 0241 KEN CONWAY 04/[address] [place] [address])([facility]) [address] [place] [address])([facility] Internal Medicine ) TELE CONSULT [id number] Notes Entered by: ADELAIDE EUCEDA 05 May 2014 1116 ------- ------- ------- ------- -- Network results Optomet ry 4 JOSE J GALLAGHER 05/[address] [place] [address])([facility]) [address] [place] [address])([facility] Internal Medicine ) TELE CONSULT [id number] Notes Entered by: GILMAR VENTURA 22 Jun 2014 1208 ------- ------- ------- ------- -- [facility] med request KEN CONWAY 06/[address] [place] [address])([facility]) [address] [place] [address])([facility] Internal Medicine ) TELE CONSULT [id number] Notes Entered by: DAYNA ESPINOZA 13 Aug 2014 1540 ------- ------- ------- ------- -- Dermato logy referra l renewal request ed by Pt NASEEM ESPINOZA 08/13 Referred for Appointment [address] [place] [address])([facility]) [address] [place] [address])([facility] Internal Medicine ) TELE CONSULT [id number] Notes Entered by: WALLACE REGAN 21 Sep 2014 1619 ------- ------- ------- ------- -- Network results - Pulmona ry/Kingsley so Medicin e 014 EUGENE SPRINGER 09/[address] [place] [address])([facility]) [address] [place] [address])([facility] Internal Medicine ) TELE CONSULT [id number] Notes Entered by: ADELAIDE EUCEDA 23 Sep 2014 1501 ------- ------- ------- ------- -- Network results Optomet ry 4 AZEB HERNANDEZ V 09/[address] [place] [address])([facility]) [address] [place] [address])([facility] Internal Medicine Tm) TELE CONSULT [id number] Notes Entered by: Cindy NICE 12 Oct 2014 1022 ------- ------- ------- ------- -- New sylvia Hernandez 667.802 7 CHELY PACE 10/[address] [place] [address])([facility]) [address] [place] [address])([facility] Internal Medicine ) TELE CONSULT [id number] Notes Entered by: VICKI VILLA 13 Jan 2015 0714 ------- ------- ------- ------- -- Network Results -DERMAT OLOGY 10/21/14 CHET BILL 01/[address] [place] [address])([facility]) [address] [place] [address])([facility] Disease Managemen t) TELE CONSULT [id number] Notes Entered by: FILEMON JORGE 15 Feb 2015 1627 ------- ------- ------- ------- -- Pt needing fasting labs and f/u appt. FILEMON JORGE 02/[address] [place] [address])(S cott Disease Managem ent) [address] [place] [address])([facility] Internal Medicine ) OUTPATIENT [id number] f/u lab results - med refills - needs 3 sylvia olson (Diab) JORGE FUNK V 03/11 Released w/o Limitations [address] [place] [address])([facility]) [address] [place] [address])([facility] Internal Medicine ) TELE CONSULT [id number] Notes Entered by: PENNY SALAMANCA 01 Apr 2015 1257 ------- ------- ------- ------- -- Rx renewal - Garett - [phone] -[phone] CHELY PACE 04/[address] [place] [address])([facility]) [address] [place] [address])([facility] Internal Medicine ) TELE CONSULT [id number] Notes Entered by: Leah WATT 08 Apr 2015 0738 ------- ------- ------- ------- -- ER F/U- Ortho Ref/ Garett / CHELY PACE 04/[address] [place] [address])([facility]) [address] [place] [address])(Min or Procedure Clinic) OUTPATIENT [id number] 3rd floor [facility]/Pr eop clinic QUYEN ALVAREZ 04/12 Released w/o Limitations [address] [place] [address])( inor Procedu re Clinic) [address] [place] [address])([facility] Internal Medicine ) TELE CONSULT [id number] Notes Entered by: VICKI VILLA 27 Apr 2015 1144 ------- ------- ------- ------- -- Network Results OTORHIN OLARYNG OLOGY 04/26/15 JORGE FUNK V 04/[address] [place] [address])([facility]) [address] [place] [address])([facility]) OUTPATIENT [id number] 2ND FLOOR SAFB/SC CONNOR KNIGHT 05/18 Released w/o Limitations [address] [place] [address])(M inor Procedu re Clinic) [address] [place] [address])([facility] FAMRES Tm Blue) TELE CONSULT [id number] Notes Entered by: KRISTY ARCHER 19 May 2015 1508 ------- ------- ------- ------- -- Call back C-scope on 1dec15- KRISTY Olivas 05/[address] [place] [address] [facility] [address] [place] [address] [facility])([facility] Internal Medicine ) OUTPATIENT [id number] hand pain//3 [phone] TEO ENRIQUEZ 06/25 Released w/o Limitations [address] [place] [address] [facility])([facility] Tm) [address] [place] [address] [facility])([facility] Internal Medicine ) TELE CONSULT [id number] Notes Entered by: TEO ENRIQUEZ 06 Jul 2015 1502 ------- ------- ------- ------- -- Lab results ARACELI OROZCO 07/06 Referred for Appointment [address] [place] [address] [facility]) [address] [place] [address] [facility])([facility] Internal Medicine ) TELE CONSULT [id number] Notes Entered by: DUNCAN GREER 03 Sep 2015 1027 ------- ------- ------- ------- -- Network Results RHEUMAT OLOGY 09/01/15 TEO ORELLANA 09/[address] [place] [address] [facility])([facility]) [address] [place] [address] [facility])([facility] Internal Medicine ) OUTPATIENT [id number] F/U lab results TEO ENRIQUEZ 09/19 Released w/o Limitations [address] [place] [address] [facility] Medic[facility] Tm) [address] [place] [address] [facility])([facility] Internal Medicine ) TELE CONSULT [id number] Notes Entered by: KATJA CANTU 03 Dec 2015 1531 ------- ------- ------- ------- -- Network Results Rheumat ology 6 DEBBIE, DACLAURYN 12/[address] [place] [address] [facility] [place] ([facility] Medicin [facility] Tm) [address] [place] [address] ([facility])([facility] Internal Medicine ) TELE CONSULT [id number] Notes Entered by: DUNCAN GREER 17 Mar 2016 0910 ------- ------- ------- ------- -- Network Results RHEUMAT OLOGY 03/15/16 KG DEBBIE, DACLAURYN 03/[address] [place] [address] [facility] [place] ([facility])([facility] Intern[facility] l Medicin e Tm) [address] [place] [address] [facility] ([facility])([facility] Internal Medicine ) OUTPATIENT [id number] f/u on labs 391.709 3 DEBBIE, DACLAURYN 03/28 Released w/o Limitations [address] [place] [address] [facility] Intern[facility] l Medicin e Tm) [address] [place] [address] [facility] ([facility])([facility] Internal Medicine ) OUTPATIENT [id number] Low R Back pain [id number] DEBBIE, DACLAURYN 04/11 Released w/o Limitations [address] [place], [place] [address]B ([facility])([facility] Intern[facility] l Medicin e Tm) [address] [place], [place] [address]B ([facility])([facility] Internal Medicine ) TELE CONSULT [id number] Notes Entered by: ADELAIDE EUCEDA 06 Jun 2016 1608 ------- ------- ------- ------- -- Network Results Rheumat ology 6 DEBBIE, DACRE 06/[address] [place] [address] Group [facility] ([facility])([facility] Intern[facility] l Medicin e Tm) [address] [place] [address] [facility] ([facility])([facility] Internal Medicine ) TELE CONSULT [id number] Notes Entered by: WALLACE REGAN 09 Jun 2016 1442 ------- ------- ------- ------- -- Network results Ophthal mology 016 TEO ROMAN 06/[address] [place] [address])([facility] Intern[facility] l Medicin e Tm) [address] [place] [address])([facility] Internal Medicine ) TELE CONSULT [id number] Notes Entered by: ASH HE 17 Jul 2016 0849 ------- ------- ------- ------- -- Referra l renewal /Med renewal /Debbie // EUGENE Molina 07/[address] [place] [address])([facility] Intern[facility] l Medicin e Tm) [address] [place] [address])([facility] Internal Medicine ) TELE CONSULT [id number] Notes Entered by: DELIA YOUNG 30 Aug 2016 1212 ------- ------- ------- ------- -- Network Results -RHEUMA TOLOGY 08/29/16 JORGE LAMAS V 08/[address] [place] [address])([facility] Intern[facility] l Medicin e Tm) [address] [place] [address])([facility] Internal Medicine ) TELE CONSULT [id number] Notes Entered by: DARRON TENA 04 Oct 2016 0944 ------- ------- ------- ------- -- Network Results Radiolo gy 7 BG ABDOMEN 1 VIEW JORGE FUNK V 10/[address] [place] [address])([facility] Intern[facility] l Medicin e Tm) [address] [place] [address])([facility] Internal Medicine ) TELE CONSULT [id number] Notes Entered by: SHAHLA BA 16 Oct 2016 1417 ------- ------- ------- ------- -- Renewal Renewal Request /Edson craig/ DAVID MARES 10/16 Referred for Appointment [facility])([facility] Intern[facility] l Medicin e Tm) [address] [place] [address])([facility] Internal Medicine ) TELE CONSULT [id number] Notes Entered by: FRANSISCO LLOYD 17 Oct 2016 1004 ------- ------- ------- ------- -- Network Results Radiolo gy 7 JORGE RAMOS ABD, V 10/[address] [place] [address] Group [facility])([facility] Interna l Medicin e Tm) [address] [place] [address])([facility] Internal Medicine ) TELE CONSULT [id number] Notes Entered by: FRANSISCO LLOYD 20 Oct 2016 1356 ------- ------- ------- ------- -- Network Results Laborat ory 7 JORGE RAMOS V 10/20 [facility])([facility] Intern[facility] l Medicin e Tm) [facility])([facility] Internal Medicine ) TELE CONSULT [id number] Notes Entered by: JEANNETTE HAWK 23 Oct 2016 1432 ------- ------- ------- ------- -- Network Results Laborat ory 10/20/16 JORGE MCCLELLAN V 10/23 [facility])([facility] Intern[facility] l Medicin e Tm) [facility])([facility] Internal Medicine ) TELE CONSULT [id number] Notes Entered by: FRANSISCO LLOYD 25 Oct 2016 0619 ------- ------- ------- ------- -- Network Results Radiolo gy 7 JORGE STRONG ABD, V 10/[address] [place] [address] Group [facility])([facility] Interna l Medicin e Tm) [address] [place] [address])([facility] Internal [facility]) TELE CONSULT [id number] Notes Entered by: FRANSISCO LLOYD 26 Oct 2016 0830 ------- ------- ------- ------- -- Network Results Radiolo gy 7 JORGE COLLAZO V 10/[address] [place] [address] [facility])([facility] Interna l Medicin e Tm) [address] [place] [address] [facility])([facility] Internal Medicine ) TELE CONSULT [id number] Notes Entered by: FRANSISCO LLOYD 30 Oct 2016 0812 ------- ------- ------- ------- -- Network Results Laborat ory 7 JORGE RAMOS V 10/[address] [place] [address] [facility])([facility] Interna l Medicin e Tm) [address] [place] [address])([facility] Internal [facility]) TELE CONSULT [id number] Notes Entered by: FRANSISCO LLOYD 30 Oct 2016 1244 ------- ------- ------- ------- -- Network Results Urology 6 JORGE RAMOS V 10/[address] [place] [address] [facility] ([facility])([facility] cott Interna l Medicin e Tm) [address] [place] [address] [facility])([facility] Internal Medicine ) TELE CONSULT [id number] Notes Entered by: ADELAIDE EUCEDA 01 Nov 2016 1051 ------- ------- ------- ------- -- Network Results Urologi trevor Surgery 7 JORGE BEVERLY V 11/[address] [place] [address] [facility] ([facility])(S cott Interna l Medicin e Tm) [address] [place] [address])([facility] Internal Medicine ) TELE CONSULT [id number] Notes Entered by: ASH HE 17 Nov 2016 1240 ------- ------- ------- ------- -- Sylvia Villasenor /Edson craig/ /MARY ELLEN Palmer 11/17 Referred for Appointment [address] [place] [address])([facility] Interna l Medicin e Tm) [address] [place] [address])([facility] Internal Medicine ) TELE CONSULT [id number] Notes Entered by: Leah WATT 22 Nov 2016 1005 ------- ------- ------- ------- -- Med Renewal /Edson craig/ - MARSHALL Gallardo 11/22 Referred for Appointment [address] [place] [address])([facility] Intern[facility] l Medicin e Tm) [address] [place] [address])([facility] Internal Medicine ) TELE CONSULT [id number] Notes Entered by: PRAVEENA COTTON 04 Dec 2016 0904 ------- ------- ------- ------- -- Update Sylvia cardona - appt December 20 - Garett - [phone] EUGENE Toro 12/[address] [place] [address])([facility] Intern[facility] l Medicin e Tm) [address] [place] [address])([facility] Internal Medicine ) TELE CONSULT [id number] Notes Entered by: PEPE QUEVEDO TILA 11 Jan 2017 0704 ------- ------- ------- ------- -- SX high blood , med renewal /EDSON Craig/ [id number] KELLI TRAN 01/[address] [place] [address])([facility] Interna l Medicin e Tm) [address] [place] [address])([facility]) OUTPATIENT [id number] HTN f/u PATTY PACE 01/25 Released w/o Limitations [address] [place] [address] [facility])([facility]) [address] [place] [address])([facility] Internal Medicine ) OUTPATIENT [id number] F/u hernia repair JORGE FUNK V 01/25 Released w/o Limitations [address] [place] [address] [facility])([facility] Intern[facility] l Medicin e Tm) [address] [place] [address])([facility] Internal Medicine ) TELE CONSULT [id number] Notes Entered by: SHAHLA BA 15 Feb 2017 0801 ------- ------- ------- ------- -- Med Bridge/ [place]arett / KELLI TRAN 02/[address] [place] [address])([facility] Interna l Medicin e Tm) [address] [place] [address])([facility] Internal Medicine ) TELE CONSULT [id number] Notes Entered by: WALLACE REGAN 22 Feb 2017 1555 ------- ------- ------- ------- -- Network results Surgery 017 ZULY WILSON 02/[address] [place] [address] [facility])([facility] Intern[facility] l Medicin e Tm) [address] [place] [address])([facility] Internal Medicine ) OUTPATIENT [id number] Medicat ion Renewal , Discuss [facility] letter [id number] JORGE FUNK V 02/28 Released w/o Limitations [address] [place] [address])([facility] cott Interna l Medicin e Tm) [address] [place] [address])([facility] Internal Medicine ) TELE CONSULT [id number] Notes Entered by: CHRISTIAN HARRELL 01 Mar 2017 1349 ------- ------- ------- ------- -- Network Results - Otorhin olaryng ology (ENT) 7 ZULY CLARK 03/[address] [place] [address] Group [facility])([facility] cott Interna l Medicin e Tm) [address] [place] [address])([facility] Internal Medicine ) TELE CONSULT [id number] Notes Entered by: Estella SALDIVAR 06 Mar 2017 1023 ------- ------- ------- ------- -- Network results Dermato logy 12/20/16 JORGE HOLMAN V 03/[address] [place] [address])([facility] Interna l Medicin e Tm) [address] [place] [address])([facility] Internal Medicine ) TELE CONSULT [id number] Notes Entered by: Estella SALDIVAR 15 Mar 2017 0811 ------- ------- ------- ------- -- Network Results Rheumat ology 03/07/17 JORGE HOLMAN V 03/[address] [place] [address])([facility] cott Interna l Medicin e Tm) [address] [place] [address])([facility] Internal Medicine ) TELE CONSULT [id number] Notes Entered by: SHAHLA BA 02 Apr 2017 1126 ------- ------- ------- ------- -- Paperwo rachael Cabral/ Garett / MARSHALL BARVO 04/02 Referred for Appointment [address] [place] [address])([facility] Intern[facility] l Medicin e Tm) [address] [place] [address])([facility] ) TELE CONSULT [id number] Notes Entered by: DELIA YOUNG 16 May 2017 1019 ------- ------- ------- ------- -- Network Results -OPHTHA LMOLOGY 7 JORGE LAMAS V 05/[address] [place] [address])([facility] [address] [place] [address])([facility] ) TELE CONSULT [id number] Notes Entered by: DARRON TENA 17 May 2017 1150 ------- ------- ------- ------- -- Network Results Radiolo gy 7 JORGE FUNK V 05/[address] [place] [address])([facility]) [address] [place] [address])([facility] ) TELE CONSULT [id number] Notes Entered by: FRANSISCO LLOYD 18 May 2017 0951 ------- ------- ------- ------- -- Network Results Urology 7 JORGE FUNK V 05/[address] [place] [address])([facility]) [address] [place] [address])([facility] ) TELE CONSULT [id number] Notes Entered by: SHAHLA BA 23 May 2017 0818 ------- ------- ------- ------- -- Med Renewal /Edson craig/ EUGENE SPRINGER 05/[address] [place] [address])([facility]) [address] [place] [address])([facility] ) TELE CONSULT [id number] Notes Entered by: SHAHLA BA 23 May 2017 1341 ------- ------- ------- ------- -- Referra l Renewal Request (appt May)/Kirsty ndowe/6 [phone] DAVID MARES 05/23 Referred for Appointment [address] [place] [address])([facility]) [address] [place] [address])([facility] Tm) TELE CONSULT [id number] Notes Entered by: EUGENE SPRINGER 14 Jun 2017 1211 ------- ------- ------- ------- -- Walked into clinic c/o cold Sx's EUGENE SPRINGER 06/[address] [place] [address])([facility]) [address] [place] [address])([facility]) OUTPATIENT [id number] PATTY JHAVERI 06/14 Released w/o Limitations [address] [place] [address])([facility]) [address] [place] [address])([facility] Tm) TELE CONSULT [id number] Notes Entered by: LUPE ALMONTE 25 Jun 2017 1416 ------- ------- ------- ------- -- [facility] - Rheumat ology 7 JORGE FUNK V 06/[address] [place] [address])([facility]) [address] [place] [address])([facility] Tm) TELE CONSULT [id number] Notes Entered by: RYAN BRUNO 19 Jul 2017 0722 ------- ------- ------- ------- -- Med [facility] / [place] / - sgj KELLI TRAN 07/[address] [place] [address])([facility]) [address] [place] [address])([facility] Tm) TELE CONSULT [id number] Notes Entered by: ASH HE 15 Aug 2017 0918 ------- ------- ------- ------- -- Sylvia Gonzalez /Edson craig/ /clm KELLI TRAN 08/[address] [place] [address] [facility])([facility]) [address] [place] [address])([facility] ) TELE CONSULT [id number] Notes Entered by: SHAHLA BA 16 Oct 2017 0753 ------- ------- ------- ------- -- Referra l Renewal Request (appt 16 November)/Magdi byrd/ MARSHALL BRAVO 10/16 Referred for Appointment [address] [place] [address] Group [facility])([facility]) [address] [place] [address])([facility] ) TELE CONSULT [id number] Notes Entered by: ASHLEY SAGE RET 14 Jan 2018 0738 ------- ------- ------- ------- -- Ref Renewal Dermato logy/Kirsty chine/6 [phone] [facility] JORGE SORENSEN 01/14 Immediate Referral [address] [place] [address] Group [facility])([facility]) [address] [place] [address])([facility] ) OUTPATIENT [id number] f/u for bp and med adjustm ent [id number] JORGE FUNK V 01/24 Released w/o Limitations [address] [place] [address] [facility])([facility]) [address] [place] [address])([facility] ) TELE CONSULT [id number] Notes Entered by: LISANDRO SANTIAGO 31 Jan 2018 1019 ------- ------- ------- ------- -- Referra l renewal /edson craig/[id number] JORGE SORENSEN 01/31 Immediate Referral [address] [place] [address] Group [facility])([facility]) [address] [place] [address])([facility] ) TELE CONSULT [id number] Notes Entered by: JORGE SORENSEN 31 Jan 2018 1248 ------- ------- ------- ------- -- BP reading s for JORGE Carvalho 01/31 Released to [facility] [address] [place] [address])([facility]) [address] [place] [address])([facility] ) TELE CONSULT [id number] Notes Entered by: SHAHLA BA 19 Feb 2018 0805 ------- ------- ------- ------- -- Gary Quiñonez/ [place] /[phone] 93 JORGE SORENSEN 02/19 Released to [facility] [address] [place] [address])([facility]) [address] [place] [address])([facility] ) TELE CONSULT [id number] Notes Entered by: Estella SALDIVAR 26 Feb 2018 1547 ------- ------- ------- ------- -- Referra [facility] MARY ELLEN Lazcano 02/26 Referred for Appointment [address] [place] [address])([facility]) [address] [place] [address])([facility] ) TELE CONSULT [id number] Notes Entered by: PRAVEENA COTTON 04 Mar 2018 0857 ------- ------- ------- ------- -- Med Refill - med questio lacey - [place] - [phone] JORGE SORENSEN 03/04 Released to [facility] [address] [place] [address])([facility]) [address] [place] [address])([facility] ) TELE CONSULT [id number] Notes Entered by: SHAHLA BA 18 Mar 201846 ------- ------- ------- ------- -- Med Renewal kevin/Christina mejía/618. [phone] 3 JORGE SORENSEN 03/18 Medication Refill Forwarded [address] [place] [address])([facility]) [address] [place] [address])([facility] ) TELE CONSULT [id number] Notes Entered by: Hedy SAUCEDA 01 Apr 2018 0856 ------- ------- ------- ------- -- Shawna agarwal / med refill x / zacheryp MARY ELLEN GEIGER 04/01 Referred for Appointment [address] [place] [address])([facility]) [address] [place] [address])([facility] Disease Managemen t) TELE CONSULT [id number] Notes Entered by: NATA CARRENO 09 Apr 2018 1344 ------- ------- ------- ------- -- Disease Managem ent- Annual f/u and Labs NATA CARRENO 04/09 Other Not Elsewhere Classified [address] [place] [address])([facility] Disease [facility] ent) [address] [place] [address])([facility] ) TELE CONSULT [id number] Notes Entered by: COLBY HARRIS 21 May 2018 0847 ------- ------- ------- ------- -- Med refill/ Dr. Funk / JORGE SORENSEN 05/21 Medication Refill Forwarded [address] [place] [address])([facility]) [address] [place] [address])([facility] Tm) TELE CONSULT [id number] Notes Entered by: GILMAR VENTURA 20 Jun 2018 1030 ------- ------- ------- ------- -- [facility]- referra l MARY ELLEN GEIGER 06/20 Referred for Appointment [address] [place] [address] Group [facility])([facility]) [address] [place] [address])([facility] ) TELE CONSULT [id number] 2 Notes Entered by: Hedy SAUCEDA 14 Aug 2018 0900 ------- ------- ------- ------- -- Micare msg / med refill / gwp JORGE SORENSEN 08/14 Medication Refill Forwarded [address] [place] [address])([facility]) [address] [place] [address])([facility] ) TELE CONSULT [id number] Notes Entered by: Hedy SAUCEDA 02 Sep 2018 1010 ------- ------- ------- ------- -- Micare msg/ referra l request / gwp JORGE SORENSEN 09/02 Immediate Referral [address] [place] [address])([facility]) [address] [place] [address])([facility] ) TELE CONSULT [id number] Notes Entered by: Hedy SAUCEDA 12 Sep 2018 0923 ------- ------- ------- ------- -- Micare msg/ referra l request / gwp EUGENE SPRINGER 09/12 Released w/o Limitations [address] [place] [address])([facility]) [address] [place] [address])([facility] ) TELE CONSULT [id number] Notes Entered by: Hedy SAUCEDA 16 Sep 2018 0924 ------- ------- ------- ------- -- Micare msg/ referra l request / gwp JORGE SORENSEN 09/16 Immediate Referral [address] [place] [address])([facility]) [address] [place] [address])([facility] ) TELE CONSULT [id number] Notes Entered by: Hedy SAUCEDA 18 Sep 2018 0923 ------- ------- ------- ------- -- Micare msg/ referra l renewal / gwp TONY COLE 09/18 Referred for Appointment [address] [place] [address])([facility]) [address] [place] [address])([facility] ) TELE CONSULT [id number] Notes Entered by: NATALEE CALERO 07 Nov 2018 1057 ------- ------- ------- ------- -- Network Results Podiatr y 019 TEO HOPE 11/[address] [place] [address])([facility]) [address] [place] [address])([facility] ) TELE CONSULT [id number] Notes Entered by: Magdi VALDES 02 Dec 2018 1214 ------- ------- ------- ------- -- Network results Urology 019 AMILCAR GOLDMAN 12/[address] [place] [address])([facility]) [address] [place] [address])([facility] ) TELE CONSULT [id number] Notes Entered by: Hedy SAUCEDA 03 Feb 2019 0831 ------- ------- ------- ------- -- micare msg/ med refill x 4 / EUGENE Reyes 02/03 Medication Refill Forwarded [address] [place] [address])([facility]) [facility])([facility] ) TELE CONSULT [id number] 5 Notes Entered by: ASHLEY SAGE RET 03 Feb 2019 1220 ------- ------- ------- ------- -- Lab Order- Appt ight/61 [id number] EUGENE SPRINGER 02/03 Other Not Elsewhere Classified [facility])([facility]) [address] [place] [address] Group [facility])([facility] ) OUTPATIENT [id number] annual visit and lab review AMILCAR PRECIADO 02/25 Released w/o Limitations [address] [place] [address])([facility]) [address] [place] [address])([facility] ) TELE CONSULT [id number] 5 Notes Entered by: Hedy SAUCEDA 01 Apr 2019 1240 ------- ------- ------- ------- -- Shawna agarwal/ sylvia torres / MARY ELLEN Prakash 04/01 Referred for Appointment [address] [place] [address])([facility]) [address] [place] [address])([facility] ) OUTPATIENT [id number] Wheejoann g in chest AMILCAR PRECIADO 04/14 Released w/o Limitations [address] [place] [address] Group [facility])([facility]) [address] [place] [address])([facility] ) TELE CONSULT [id number] Notes Entered by: GILMAR VENTURA 14 Apr 2019 1624 ------- ------- ------- ------- -- WHEEEUGENE YANCEY 04/14 Referred for Appointment [address] [place] [address] Group [facility])([facility]) [address] [place] [address])([facility] ) OUTPATIENT [id number] 0 F/u Alex PRECIADODAIANAAMILCAR A 05/01 Released w/o Limitations [address] [place] [address])([facility]) [address] [place] [address])([facility] ) OUTPATIENT [id number] 2 pain in right arm (hand - elbow - shoulde r) FLAKITO MARTINO 08/07 Released w/o Limitations [address] [place] [address])([facility]) [address] [place] [address])([facility] ) TELE CONSULT [id number] 0 Notes Entered by: ADELINA MORALES 13 Aug 2019 1625 ------- ------- ------- ------- -- Network results Physica l Therapy 020 FLAKITO RICE 08/[address] [place] [address])([facility]) [address] [place] [address])([facility] ) TELE CONSULT [id number] Notes Entered by: ADELINA MORALES 01 Sep 2019 1139 ------- ------- ------- ------- -- Network results Physica l Therapy 020 FLAKITO RICE 08/[address] [place] [address])([facility]) [address] [place] [address])([facility] ) TELE CONSULT [id number] 5 Notes Entered by: GILMAR VENTURA 16 Sep 2019 1151 ------- ------- ------- ------- -- MARY ELLEN Murguia 09/15 Other Not Elsewhere Classified [address] [place] [address])([facility]) [address] [place] [address])([facility] ) TELE CONSULT [id number] Notes Entered by: GILMAR VENTURA 20 Oct 2019 1021 ------- ------- ------- ------- -- Margiere- MARY ELLEN Mcginnis 10/19 Referred for Appointment [address] [place] [address])([facility]) [address] [place] [address])([facility] ) TELE CONSULT [id number] 7 Notes Entered by: Hedy SAUCEDA 24 Nov 2019 0805 ------- ------- ------- ------- -- Margiere msg/ appt request / B/P concern s / EUGENE Reyes 11/23 Other Not Elsewhere Classified [address] [place] [address])([facility]) [address] [place] [address])([facility] ) OUTPATIENT [id number] 5 elevate d BP and low back pain, call [id number] FLAKITO MARTINO 11/24 Released w/o Limitations [address] [place] [address])([facility]) [address] [place] [address])([facility] ) TELE CONSULT [id number] 9 Notes Entered by: NATALEE CALERO 25 Nov 2019 1246 ------- ------- ------- ------- -- Network results Physica l Therapy 020 KSP FLAKITO MARTINO 11/[address] [place] [address])([facility]) [address] [place] [address])([facility] ) TELE CONSULT [id number] Notes Entered by: ST CHANDLER BUNDY 11 Dec 2019 0924 ------- ------- ------- ------- -- Network results Podiatr y 020 SHIN BOONE SULLIVAN 12/[address] [place] [address] Group [facility])([facility]) [address] [place] [address])([facility] ) TELE CONSULT [id number] 5 Notes Entered by: Hedy SAUCEDA 12 Dec 2019 1049 ------- ------- ------- ------- -- shawna agarwal/ B/P reading s / EUGENE Reyes 12/11 Other Not Elsewhere Classified [address] [place] [address] Group [facility])([facility]) [address] [place] [address])([facility] ) TELE CONSULT [id number] Notes Entered by: Hedy SAUCEDA 17 Dec 2019 1037 ------- ------- ------- ------- -- Shawna agarwal/ MEÑO / B/P /EUGENE Reyes 12/16 Other Not Elsewhere Classified [address] [place] [address])([facility]) [address] [place] [address])([facility] ) TELE CONSULT [id number] 0 Notes Entered by: GILMAR VENTURA 24 Dec 2019 0734 ------- ------- ------- ------- -- Shawna_ office Note EUGENE SPRINGER 12/23 Advice Assessment [address] [place] [address] Group [facility])([facility]) [address] [place] [address])([facility] ) TELE CONSULT [id number] 3 Notes Entered by: ST CHANDLER BUNDY 26 Dec 2019 1229 ------- ------- ------- ------- -- Network results Physica l Therapy 020 FLAKITO SNELL 12/[address] [place] [address])([facility]) [address] [place] [address])([facility] ) TELE CONSULT [id number] 3 Notes Entered by: Hedy SAUCEDA 09 Jan 2020 0750 ------- ------- ------- ------- -- Micare msg/ B/P reading s / EUGENE Reyes 01/08 Other Not Elsewhere Classified [address] [place] [address] Group [facility])([facility]) [address] [place] [address])([facility] ) TELE CONSULT [id number] 9 Notes Entered by: Hedy SAUCEDA 01 Mar 2020 0940 ------- ------- ------- ------- -- Micare msg/ med refill x pill left / EUGENE Reyes 03/01 Medication Refill Forwarded [address] [place] [address])([facility]) [address] [place] [address])([facility] ) TELE CONSULT [id number] Notes Entered by: RYAN BRUNO 01 Mar 2020 1112 ------- ------- ------- ------- -- Lab Order Request -Appt Feb-Ellis ramirez Like to do Lab Work ameliaers/9 [id number] MARY ELLEN GEIGER 03/01 Other Not Elsewhere Classified [address] [place] [address])([facility]) [address] [place] [address])([facility] ) OUTPATIENT [id number] Virtual Appt - general check up/medi cations /lab results - [id number] FLAKITO MARTINO 03/02 Released w/o Limitations [address] [place] [address])([facility]) [address] [place] [address])([facility] ) TELE CONSULT [id number] 3 Notes Entered by: Hedy SAUCEDA 26 Mar 2020 0813 ------- ------- ------- ------- -- micare msg/ medicat ion request / EUGENE Reyes 03/26 Medication Refill Forwarded [address] [place] [address] [facility] ([facility]) [address] [place] [address] [facility])([facility] Internal Medicine Tm) TELE CONSULT [id number] Notes Entered by: Hedy SAUCEDA 10 May 2020 0807 ------- ------- ------- ------- -- micare msg/ med refill x 4 /EUGENE Reyes 05/10 Medication Refill Forwarded [address] [place] [address] Travis OLIVEROS ([facility] Tm) [facility] Outpatient Encounter [id number] 03/[address] 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 OFFICE O/P EST MOD 30 MIN [id number] Diagnos is: ICD-10- CM Z00.00 Encntr for general adult medical exam w/o abnorma l finding s Estella LIRIANO L 02/19 [facility] Outpatient Encounter [id number] 02/20 [facility] Procedures Combined list of: 1) Procedures from Department of Veterans Affairs facilities going back up to thelast 18 months, not all VA non-surgical procedures are included; 2) All procedures from the Department of Defense facilities. Procedure Procedure Type Code Date Perfomer Comments Sour e QUALIFIED NONPHYSICIAN HEALTH MANAGER OF CASE MANAGEMENT ONLINE DIGITAL ASSESSMENT AND MANAGEMENT, FOR AN ESTABLISHED PATIENT, FOR UP TO 7 DAYS, CUMULATIVE TIME DURING THE 7 DAYS; 5-10 MINUTES 2019 [facility] TELE ASSESS & MGT SRV PROV QUAL NONPHYS HLTH CARE PRO TO EST PAT,PARENT,GUARD NOT ORIG REL ASSESS & MGT SRV PROV W/IN PREV 7 DAYS NOR LEAD ASSESS & MGT SRV/PX W/IN NXT 24 HR/SOON APT;5-10 MIN MED DIS 2018 DoD ONLINE ASSESS &MANAG SERV PROVIDE,A QUAL NONPHYS HCP TO AN ESTABLISHED PAT/GUARDIAN,NOT ORIGINAT FRM RELAT ASSESS &MANAG SERV PROVIDE W/IN THE PREV 7 DAYS,USE THE INTERNET/SIMILAR [employer] NETWORK 2018 DoD TELE ASSESS & MGT SRV PROV QUAL NONPHYS HLTH CARE PRO TO EST PAT,PARENT,GUARD NOT ORIG REL ASSESS & MGT SRV PROV W/IN PREV 7 DAYS NOR LEAD ASSESS & MGT SRV/PX W/IN NXT 24 HR/SOON APT;5-10 MIN MED DIS 2017 DoD DISEASE MANAGEMENT PROGRAM, FOLLOW-UP/REASSESS [facility] 2017 DoD ONLINE ASSESS &MANAG SERV PROVIDE,A QUAL NONPHYS HCP TO AN ESTABLISHED PAT/GUARDIAN,NOT ORIGINAT FRM RELAT ASSESS &MANAG SERV PROVIDE W/IN THE PREV 7 DAYS,USE THE [employer]/SIMILAR [facility] [facility] NETWORK 2017 DoD TELE ASSESS & MGT SRV PROV QUAL NONPHYS HLTH CARE PRO TO EST PAT,PARENT,GUARD NOT ORIG REL ASSESS & MGT SRV PROV W/IN PREV 7 DAYS NOR LEAD ASSESS & MGT SRV/PX W/IN NXT 24 HR/SOON APT;5-10 MIN MED DIS 2017 DoD TELE ASSESS & MGT SRV PROV QUAL NONPHYS HLTH CARE PRO TO EST PAT,PARENT,GUARD NOT ORIG REL ASSESS & MGT SRV PROV W/IN PREV 7 DAYS NOR LEAD ASSESS & MGT SRV/PX W/IN NXT 24 HR/SOON APT;5-10 MIN MED DIS 2017 DoD TELE ASSESS & MGT SRV PROV QUAL NONPHYS HLTH CARE PRO TO EST PAT,PARENT,GUARD NOT ORIG REL ASSESS & MGT SRV PROV W/IN PREV 7 DAYS NOR LEAD ASSESS & MGT SRV/PX W/IN NXT 24 HR/SOON APT;5-10 MIN MED DIS 2017 DoD TELE ASSESS & MGT SRV PROV QUAL NONPHYS HLTH CARE PRO TO EST PAT,PARENT,GUARD NOT ORIG REL ASSESS & MGT SRV PROV W/IN PREV 7 DAYS NOR LEAD ASSESS & MGT SRV/PX W/IN NXT 24 HR/SOON APT;5-10 MIN MED DIS 2017 DoD TELE ASSESS & MGT SRV PROV QUAL NONPHYS HLTH CARE PRO TO EST PAT,PARENT,GUARD NOT ORIG REL ASSESS & MGT SRV PROV W/IN PREV 7 DAYS NOR LEAD ASSESS & MGT SRV/PX W/IN NXT 24 HR/SOON APT;5-10 MIN MED DIS 2017 DoD TELE ASSESS & MGT SRV PROV QUAL NONPHYS HLTH CARE PRO TO EST PAT,PARENT,GUARD NOT ORIG REL ASSESS & MGT SRV PROV W/IN PREV 7 DAYS NOR LEAD ASSESS & MGT SRV/PX W/IN NXT 24 HR/SOON APT;5-10 MIN MED DIS 2017 DoD TELE ASSESS & MGT SRV PROV QUAL NONPHYS HLTH CARE PRO TO EST PAT,PARENT,GUARD NOT ORIG REL ASSESS & MGT SRV PROV W/IN PREV 7 DAYS NOR LEAD ASSESS & MGT SRV/PX W/IN NXT 24 HR/SOON APT;5-10 MIN MED DIS 2017 DoD TELE ASSESS & MGT SRV PROV QUAL NONPHYS HLTH CARE PRO TO EST PAT,PARENT,GUARD NOT ORIG REL ASSESS & MGT SRV PROV W/IN PREV 7 DAYS NOR LEAD ASSESS & MGT SRV/PX W/IN NXT 24 HR/SOON APT;5-10 MIN MED DIS 2017 DoD TELE ASSESS & MGT SRV PROV QUAL NONPHYS HLTH CARE PRO TO EST PAT,PARENT,GUARD NOT ORIG REL ASSESS & MGT SRV PROV W/IN PREV 7 DAYS NOR LEAD ASSESS & MGT SRV/PX W/IN NXT 24 HR/SOON APT;5-10 MIN MED DIS 2017 DoD MEDICATION THERAPY MANAGEMENT SERVICE(S) PROVIDED BY A PHARMACIST, INDIVIDUAL, [id number] WITH PATIENT, WITH ASSESSMENT AND INTERVENTION IF PROVIDED; INITIAL 15 MINUTES, ESTABLISHED PATIENT 2016 DoD TELE ASSESS & MGT SRV PROV QUAL NONPHYS HLTH CARE PRO TO EST PAT,PARENT,GUARD NOT ORIG REL ASSESS & MGT SRV PROV W/IN PREV 7 DAYS NOR LEAD ASSESS & MGT SRV/PX W/IN NXT 24 HR/SOON APT;5-10 MIN MED DIS 2016 DoD TELE ASSESS & MGT SRV PROV QUAL NONPHYS HLTH CARE PRO TO EST PAT,PARENT,GUARD NOT ORIG REL ASSESS & MGT SRV PROV W/IN PREV 7 DAYS NOR LEAD ASSESS & MGT SRV/PX W/IN NXT 24 HR/SOON APT;5-10 MIN MED DIS 2016 DoD TELE ASSESS & MGT SRV PROV QUAL NONPHYS HLTH CARE PRO TO EST PAT,PARENT,GUARD NOT ORIG REL ASSESS & MGT SRV PROV W/IN PREV 7 DAYS NOR LEAD ASSESS & MGT SRV/PX W/IN NXT 24 HR/SOON APT;5-10 MIN MED DIS 2016 DoD MEDICATION THERAPY MANAGEMENT SERVICE(S) PROVIDED BY A PHARMACIST, INDIVIDUAL, [id number] WITH PATIENT, WITH ASSESSMENT AND INTERVENTION IF PROVIDED; INITIAL 15 MINUTES, NEW PATIENT 2016 DoD TELE ASSESS & MGT SRV PROV QUAL NONPHYS HLTH CARE PRO TO EST PAT,PARENT,GUARD NOT ORIG REL ASSESS & MGT SRV PROV W/IN PREV 7 DAYS NOR LEAD ASSESS & MGT SRV/PX W/IN NXT 24 HR/SOON APT;5-10 MIN MED DIS 2016 DoD TELE ASSESS & MGT SRV PROV QUAL NONPHYS HLTH CARE PRO TO EST PAT,PARENT,GUARD NOT ORIG REL ASSESS & MGT SRV PROV W/IN PREV 7 DAYS NOR LEAD ASSESS & MGT SRV/PX W/IN NXT 24 HR/SOON APT;5-10 MIN MED DIS 2016 DoD TELE ASSESS & MGT SRV PROV QUAL NONPHYS HLTH CARE PRO TO EST PAT,PARENT,GUARD NOT ORIG REL ASSESS & MGT SRV PROV W/IN PREV 7 DAYS NOR LEAD ASSESS & MGT SRV/PX W/IN NXT 24 HR/SOON APT;5-10 MIN MED DIS 2016 DoD TELE ASSESS & MGT SRV PROV QUAL NONPHYS HLTH CARE PRO TO EST PAT,PARENT,GUARD NOT ORIG REL ASSESS & MGT SRV PROV W/IN PREV 7 DAYS NOR LEAD ASSESS & MGT SRV/PX W/IN NXT 24 HR/SOON APT;5-10 MIN MED DIS 2016 DoD TELE ASSESS & MGT SRV PROV QUAL NONPHYS HLTH CARE PRO TO EST PAT,PARENT,GUARD NOT ORIG REL ASSESS & MGT SRV PROV W/IN PREV 7 DAYS NOR LEAD ASSESS & MGT SRV/PX W/IN NXT 24 HR/SOON APT;5-10 MIN MED DIS 2016 DoD TELE ASSESS & MGT SRV PROV QUAL NONPHYS HLTH CARE PRO TO EST PAT,PARENT,GUARD NOT ORIG REL ASSESS & MGT SRV PROV W/IN PREV 7 DAYS NOR LEAD ASSESS & MGT SRV/PX W/IN NXT 24 HR/SOON APT;5-10 MIN MED DIS 2016 DoD COLONOSCOPY, FLEXIBLE; DIAGNOSTIC, INCLUDING COLLECTION OF SPECIMEN(S) BY BRUSHING OR WASHING, WHEN PERFORMED (SEPARATE PROCEDURE) 2014 DoD TELEPHONE CALLS BY A REGISTERED NURSE TO A DISEASE MANAGEMENT PROGRAM MEMBER FOR MONITORING PURPOSES; PER MONTH 2014 DoD TELE ASSESS & MGT SRV PROV QUAL NONPHYS HLTH CARE PRO TO EST PAT,PARENT,GUARD NOT ORIG REL ASSESS & MGT SRV PROV W/IN PREV 7 DAYS NOR LEAD ASSESS & MGT SRV/PX W/IN NXT 24H/SOON APT; 11-20 MIN MED DIS 2014 DoD TELE ASSESS & MGT SRV PROV QUAL NONPHYS HLTH CARE PRO TO EST PAT,PARENT,GUARD NOT ORIG REL ASSESS & MGT SRV PROV W/IN PREV 7 DAYS NOR LEAD ASSESS & MGT SRV/PX W/IN NXT 24 HR/SOON APT;5-10 MIN MED DIS 2014 DoD TELE ASSESS & MGT SRV PROV QUAL NONPHYS HLTH CARE PRO TO EST PAT,PARENT,GUARD NOT ORIG REL ASSESS & MGT SRV PROV W/IN PREV 7 DAYS NOR LEAD ASSESS & MGT SRV/PX W/IN NXT 24 HR/SOON APT;5-10 MIN MED DIS 2013 DoD TELE ASSESS & MGT SRV PROV QUAL NONPHYS HLTH CARE PRO TO EST PAT,PARENT,GUARD NOT ORIG REL ASSESS & MGT SRV PROV W/IN PREV 7 DAYS NOR LEAD ASSESS & MGT SRV/PX W/IN NXT 24 HR/SOON APT;5-10 MIN MED DIS 2013 DoD TELE ASSESS & MGT SRV PROV QUAL NONPHYS HLTH CARE PRO TO EST PAT,PARENT,GUARD NOT ORIG REL ASSESS & MGT SRV PROV W/IN PREV 7 DAYS NOR LEAD ASSESS & MGT SRV/PX W/IN NXT 24 HR/SOON APT;5-10 MIN MED DIS 2013 DoD TELE ASSESS & MGT SRV PROV QUAL NONPHYS HLTH CARE PRO TO EST PAT,PARENT,GUARD NOT ORIG REL ASSESS & MGT SRV PROV W/IN PREV 7 DAYS NOR LEAD ASSESS & MGT SRV/PX W/IN NXT 24H/SOON APT; 21-30 MIN MED DIS 2013 DoD DETERMINATION OF REFRACTIVE STATE 2012 DoD TELE ASSESS & MGT SRV PROV QUAL NONPHYS HLTH CARE PRO TO EST PAT,PARENT,GUARD NOT ORIG REL ASSESS & MGT SRV PROV W/IN PREV 7 DAYS NOR LEAD ASSESS & MGT SRV/PX W/IN NXT 24H/SOON APT; 11-20 MIN MED DIS 2012 DoD TELE ASSESS & MGT SRV PROV QUAL NONPHYS HLTH CARE PRO TO EST PAT,PARENT,GUARD NOT ORIG REL ASSESS & MGT SRV PROV W/IN PREV 7 DAYS NOR LEAD ASSESS & MGT SRV/PX W/IN NXT 24H/SOON APT; 11-20 MIN MED DIS 2011 DoD FITTING OF SPECTACLES, EXCEPT FOR APHAKIA; BIFOCAL 2010 DoD TELE ASSESS & MGT SRV PROV QUAL NONPHYS HLTH CARE PRO TO EST PAT,PARENT,GUARD NOT ORIG REL ASSESS & MGT SRV PROV W/IN PREV 7 DAYS NOR LEAD ASSESS & MGT SRV/PX W/IN NXT 24 HR/SOON APT;5-10 MIN MED DIS 2010 DoD TELE ASSESS & MGT SRV PROV QUAL NONPHYS HLTH CARE PRO TO EST PAT,PARENT,GUARD NOT ORIG REL ASSESS & MGT SRV PROV W/IN PREV 7 DAYS NOR LEAD ASSESS & MGT SRV/PX W/IN NXT 24 HR/SOON APT;5-10 MIN MED DIS 2010 DoD TELEPHONE CALLS BY A REGISTERED NURSE TO A DISEASE MANAGEMENT PROGRAM MEMBER FOR MONITORING PURPOSES; PER MONTH 2010 DoD TELE ASSESS & MGT SRV PROV QUAL NONPHYS HLTH CARE PRO TO EST PAT,PARENT,GUARD NOT ORIG REL ASSESS & MGT SRV PROV W/IN PREV 7 DAYS NOR LEAD ASSESS & MGT SRV/PX W/IN NXT 24H/SOON APT; 11-20 MIN MED DIS 2009 DoD EDUCATION &TRAINING, PATIENT SELF-MGT QUALIFIED, NONPHYSICIAN HEALTH MANAGER OF CASE MANAGEMENT USING STDIZED CURRICULUM, [id number] W THE PATIENT (COULD INCL CAREGIVER/FAMILY) EA 30 MIN; INDIVIDUAL PATIENT 2009 DoD EDUCATION &TRAINING, PATIENT SELF-MGT QUALIFIED, NONPHYSICIAN HEALTH MANAGER OF CASE MANAGEMENT USING STDIZED CURRICULUM, [id number] W THE PATIENT (COULD INCL CAREGIVER/FAMILY) EA 30 MIN; INDIVIDUAL PATIENT 2009 DoD TELE ASSESS & MGT SRV PROV QUAL NONPHYS HLTH CARE PRO TO EST PAT,PARENT,GUARD NOT ORIG REL ASSESS & MGT SRV PROV W/IN PREV 7 DAYS NOR LEAD ASSESS & MGT SRV/PX W/IN NXT 24 HR/SOON APT;5-10 MIN MED DIS 2009 DoD TELE ASSESS & MGT SRV PROV QUAL NONPHYS HLTH CARE PRO TO EST PAT,PARENT,GUARD NOT ORIG REL ASSESS & MGT SRV PROV W/IN PREV 7 DAYS NOR LEAD ASSESS & MGT SRV/PX W/IN NXT 24 HR/SOON APT;5-10 MIN MED DIS 2009 DoD DIABETIC INDICATOR; RETINAL EYE EXAM, DILATED, BILATERAL 2009 DoD PHYSICAL THERAPY RE-EVALUATION 2008 DoD APPLICATION OF A MODALITY TO 1 OR MORE AREAS; ULTRASOUND, EACH 15 MINUTES 2008 DoD APPLICATION OF A MODALITY TO 1 OR MORE AREAS; ULTRASOUND, EACH 15 MINUTES 2008 DoD APPLICATION OF A MODALITY TO 1 OR MORE AREAS; ULTRASOUND, EACH 15 MINUTES 2008 DoD APPLICATION OF A MODALITY TO 1 OR MORE AREAS; ULTRASOUND, EACH 15 MINUTES 2008 DoD APPLICATION OF A MODALITY TO 1 OR MORE AREAS; ULTRASOUND, EACH 15 MINUTES 2008 DoD PHYSICAL THERAPY RE-EVALUATION 2008 DoD APPLICATION OF A MODALITY TO 1 OR MORE AREAS; TRACTION, MECHANICAL 2008 DoD APPLICATION OF A MODALITY TO 1 OR MORE AREAS; HOT OR COLD PACKS 2008 DoD APPLICATION OF A MODALITY TO 1 OR MORE AREAS; HOT OR COLD PACKS 2008 DoD APPLICATION OF A MODALITY TO 1 OR MORE AREAS; HOT OR COLD PACKS 2008 DoD APPLICATION OF A MODALITY TO 1 OR MORE AREAS; HOT OR COLD PACKS 2008 DoD APPLICATION OF A MODALITY TO 1 OR MORE AREAS; HOT OR COLD PACKS 2008 DoD THERAPEUTIC PROCEDURE, 1 OR MORE AREAS, EACH 15 MINUTES; THERAPEUTIC EXERCISES TO DEVELOP STRENGTH AND ENDURANCE, RANGE OF MOTION AND FLEXIBILITY 2008 DoD MEDICAL NUTRITION THERAPY; GROUP (2 OR MORE INDIVIDUAL(S)), EACH 30 MINUTES 2007 DoD DESTRUCT (EG, LASER SURGERY, ELECTROSURGERY, CRYOSURGERY, CHEMOSURGERY, SURGICAL CURETTEMENT), PREMALIGNANT LESIONS (EG, ACTINIC KERATOSES); 2ND THRU 14 LESIONS, EA (LIST SEP ADDITION CD, 1ST LESION) 2006 DoD DESTRUCTION (EG, LASER SURGERY, ELECTROSURGERY, CRYOSURGERY, CHEMOSURGERY, SURGICAL CURETTEMENT), PREMALIGNANT LESIONS (EG, ACTINIC KERATOSES); FIRST LESION 2005 DoD DESTRUCT (EG, LASER SURGERY, ELECTROSURGERY, CRYOSURGERY, CHEMOSURGERY, SURGICAL CURETTEMENT), PREMALIGNANT LESIONS (EG, ACTINIC KERATOSES); 2ND THRU 14 LESIONS, EA (LIST SEP ADDITION CD, 1ST LESION) 2005 DoD DESTRUCT (EG, LASER SURGERY, ELECTROSURGERY, CRYOSURGERY, CHEMOSURGERY, SURGICAL CURETTEMENT), PREMALIGNANT LESIONS (EG, ACTINIC KERATOSES); 2ND THRU 14 LESIONS, EA (LIST SEP ADDITION CD, 1ST LESION) 2004 DoD PHYSICAL THERAPY RE-EVALUATION 2002 DoD THERAPEUTIC PROCEDURE, 1 OR MORE AREAS, EACH 15 MINUTES; THERAPEUTIC EXERCISES TO DEVELOP STRENGTH AND ENDURANCE, RANGE OF MOTION AND FLEXIBILITY 2002 DoD THERAPEUTIC PROCEDURE, 1 OR MORE AREAS, EACH 15 MINUTES; THERAPEUTIC EXERCISES TO DEVELOP STRENGTH AND ENDURANCE, RANGE OF MOTION AND FLEXIBILITY 2002 DoD APPLICATION OF A MODALITY TO 1 OR MORE AREAS; ULTRASOUND, EACH 15 MINUTES 2002 DoD APPLICATION OF A MODALITY TO 1 OR MORE AREAS; ULTRASOUND, EACH 15 MINUTES 2002 DoD APPLICATION OF A MODALITY TO 1 OR MORE AREAS; ULTRASOUND, EACH 15 MINUTES 2002 DoD REMOVAL IMPACTED CERUMEN REQUIRING INSTRUMENTATION, UNILATERAL 2002 DoD APPLICATION OF A MODALITY TO 1 OR MORE AREAS; ULTRASOUND, EACH 15 MINUTES 2002 DoD THERAPEUTIC PROCEDURE, 1 OR MORE AREAS, EACH 15 MINUTES; THERAPEUTIC EXERCISES TO DEVELOP STRENGTH AND ENDURANCE, RANGE OF MOTION AND FLEXIBILITY 2002 DoD APPLICATION OF A MODALITY TO 1 OR MORE AREAS; ULTRASOUND, EACH 15 MINUTES 2002 [facility] APPLICATION OF A MODALITY TO 1 OR MORE AREAS; ULTRASOUND, EACH 15 MINUTES 2002 [facility] THERAPEUTIC PROCEDURE, 1 OR MORE AREAS, EACH 15 MINUTES; THERAPEUTIC EXERCISES TO DEVELOP STRENGTH AND ENDURANCE, RANGE OF MOTION AND FLEXIBILITY 2002 [facility] NONINVASIVE EAR OR PULSE OXIMETRY FOR OXYGEN SATURATION; SINGLE DETERMINATION 2001 [facility] Non-Physician Phone Call To Patient/Provider Brief (5-10min) Non-Physician Phone Call To Patient/Provider Brief (5-10min) [id number] 2018 JITENDRA ZURITA DoD Internet Med Svc Qual Nonphys Healthcare Prof Up To 7 Days Estab Patient Internet Med Svc Qual Nonphys Healthcare Prof Up To 7 Days Estab Patient [id number] 2018 MARY ELLEN WEBB [facility] Non-Physician Phone Call To Patient/Provider Brief (5-10min) Non-Physician Phone Call To Patient/Provider Brief (5-10min) [id number] 2017 JORGE SORENSEN [facility] Disease management program, follow-up/obdulio e ment 2017 NATA CARRENO DoD Internet Med Svc Qual Nonphys Healthcare Prof Up To 7 Days Estab Patient Internet Med Svc Qual Nonphys Healthcare Prof Up To 7 Days Estab Patient [id number] 2017 JORGE FUNK V [facility] Non-Physician Phone Call To Patient/Provider Brief (5-10min) Non-Physician Phone Call To Patient/Provider Brief (5-10min) [id number] 2017 JORGE SORENSEN Non-Physician Phone Call To Patient/Provider Brief (5-10min) Non-Physician Phone Call To Patient/Provider Brief (5-10min) [id number] 2017 JORGE SORENSEN DoD Non-Physician Phone Call To Patient/Provider Brief (5-10min) Non-Physician Phone Call To Patient/Provider Brief (5-10min) [id number] 2017 MARY ELLEN WEBB [facility] Non-Physician Phone Call To Patient/Provider Brief (5-10min) Non-Physician Phone Call To Patient/Provider Brief (5-10min) [id number] 2017 JORGE SORENSEN DoD Non-Physician Phone Call To Patient/Provider Brief (5-10min) Non-Physician Phone Call To Patient/Provider Brief (5-10min) [id number] 2017 JORGE SORENSEN [facility] Non-Physician Phone Call To Patient/Provider Brief (5-10min) Non-Physician Phone Call To Patient/Provider Brief (5-10min) [id number] 2017 JORGE SORENSEN [facility] Non-Physician Phone Call To Patient/Provider Brief (5-10min) Non-Physician Phone Call To Patient/Provider Brief (5-10min) [id number] 2017 MARSHALL BRAVO [facility] Non-Physician Phone Call To Patient/Provider Brief (5-10min) Non-Physician Phone Call To Patient/Provider Brief (5-10min) [id number] 2017 PATTY PACE [facility] Non-Physician Phone Call To Patient/Provider Brief (5-10min) Non-Physician Phone Call To Patient/Provider Brief (5-10min) [id number] 2017 JORGE FUNK V [facility] Medication Management By Pharmacist Initial 15 Minutes Established Patient Medication Management By Pharmacist Initial 15 Minutes Established Patient [id number] 2016 PATTY PACE [facility] Non-Physician Phone Call To Patient/Provider Brief (5-10min) Non-Physician Phone Call To Patient/Provider Brief (5-10min) [id number] 2016 DAVID MARES [facility] Non-Physician Phone Call To Patient/Provider Brief (5-10min) Non-Physician Phone Call To Patient/Provider Brief (5-10min) [id number] 2016 EUGENE SPRINGER [facility] Non-Physician Phone Call To Patient/Provider Brief (5-10min) Non-Physician Phone Call To Patient/Provider Brief (5-10min) [id number] 2016 MARSHALL BRAVO [facility] Non-Physician Phone Call To Patient/Provider Brief (5-10min) Non-Physician Phone Call To Patient/Provider Brief (5-10min) [id number] 2016 KELLI TRAN [facility] Medication Management By Pharmacist Initial 15 Minutes New Patient Medication Management By Pharmacist Initial 15 Minutes New Patient [id number] 2016 PATTY PACE [facility] Non-Physician Phone Call To Patient/Provider Brief (5-10min) Non-Physician Phone Call To Patient/Provider Brief (5-10min) [id number] 2016 KELLI TRAN [facility] Non-Physician Phone Call To Patient/Provider Brief (5-10min) Non-Physician Phone Call To Patient/Provider Brief (5-10min) [id number] 2016 EUGENE SPRINGER [facility] Non-Physician Phone Call To Patient/Provider Brief (5-10min) Non-Physician Phone Call To Patient/Provider Brief (5-10min) [id number] 2016 MARSHALL BRAVO [facility] Non-Physician Phone Call To Patient/Provider Brief (5-10min) Non-Physician Phone Call To Patient/Provider Brief (5-10min) [id number] 2016 MARY ELLEN WEBB [facility] Non-Physician Phone Call To Patient/Provider Brief (5-10min) Non-Physician Phone Call To Patient/Provider Brief (5-10min) [id number] 2016 DAVID MARES [facility] Non-Physician Phone Call To Patient/Provider Brief (5-10min) Non-Physician Phone Call To Patient/Provider Brief (5-10min) [id number] 2016 EUGENE SPRINGER [facility] Complete Colonoscopy Complete Colonoscopy [id number] 2014 CONNOR YODER [facility] Telephone calls by a registered nurse to a disease management program member for monitoring purposes; per month 2014 FILEMON JORGE [facility] Non-Physician Phone Call To Patient/Provider Brief (5-10min) Non-Physician Phone Call To Patient/Provider Brief (5-10min) [id number] 2014 FILEMON JORGE [facility] Non-Physician Phone Call To Pt/Provider Intermed (11-20 min) Non-Physician Phone Call To Pt/Provider Intermed (11-20 min) [id number] 2014 CHELY PACE [facility] Non-Physician Phone Call To Patient/Provider Brief (5-10min) Non-Physician Phone Call To Patient/Provider Brief (5-10min) [id number] 2014 NASEEM ESPINOZA [facility] Non-Physician Phone Call To Patient/Provider Brief (5-10min) Non-Physician Phone Call To Patient/Provider Brief (5-10min) [id number] 2013 KEN CONWAY Non-Physician Phone Call To Patient/Provider Brief (5-10min) Non-Physician Phone Call To Patient/Provider Brief (5-10min) [id number] 2013 KEN CONWAY Non-Physician Phone Call To Patient/Provider Brief (5-10min) Non-Physician Phone Call To Patient/Provider Brief (5-10min) [id number] 2013 KEN CONWAY Non-Physician Phone Call To Pt/Provider Lengthy (21-30 min) Non-Physician Phone Call To Pt/Provider Lengthy (21-30 min) [id number] 2013 CHELY PACE Determination Of Refractive State Determination Of Refractive State [id number] 2012 GUZMAN FRASER Ophthalmological Prior Patient Start Comprehensive Care Ophthalmological Prior Patient Start Comprehensive Care [id number] 2012 GUZMAN FRASER Non-Physician Phone Call To Pt/Provider Intermed (11-20 min) Non-Physician Phone Call To Pt/Provider Intermed (11-20 min) [id number] 2012 FILEMON JORGE Non-Physician Phone Call To Pt/Provider Intermed (11-20 min) Non-Physician Phone Call To Pt/Provider Intermed (11-20 min) [id number] 2011 CHELY PACE [employer] Services Fitting Bifocal Except For Aphakia Spectacles Services Fitting Bifocal Except For Aphakia [id number] 2010 HUDSON ATWOOD Determination Of Refractive State Determination Of Refractive State [id number] 2010 HUDSON ATWOOD Fundus Photography Fundus Photography [id number] 2010 HUDSON ATWOOD Visual Nina Test Intermediate Examination Visual Nina Test Intermediate Examination [id number] 2010 HUDSON ATWOOD Ophthalmological Prior Patient Start Comprehensive Care Ophthalmological Prior Patient Start Comprehensive Care [id number] 2010 HUDSON ATWOOD Non-Physician Phone Call To Patient/Provider Brief (5-10min) Non-Physician Phone Call To Patient/Provider Brief (5-10min) [id number] 2010 MJ RENDON Telephone calls by a registered nurse to a disease management program member for monitoring purposes; per month 2010 JUSTICEMJ Whitney Non-Physician Phone Call To Patient/Provider Brief (5-10min) Non-Physician Phone Call To Patient/Provider Brief (5-10min) [id number] 2010 MJ RENDON Telephone calls by a registered nurse to a disease management program member for monitoring purposes; per month 2010 MJ RENDON Non-Physician Phone Call To Pt/Provider Intermed (11-20 min) Non-Physician Phone Call To Pt/Provider Intermed (11-20 min) [id number] 2009 AZEB GRACIA Patient Counseling Medical Management Individual Patient Patient Counseling Medical Management Individual Patient [id number] 2009 MJ RENDON Patient Counseling Medical Management Individual Patient Patient Counseling Medical Management Individual Patient [id number] 2009 MJ RENDON Non-Physician Phone Call To Patient/Provider Brief (5-10min) Non-Physician Phone Call To Patient/Provider Brief (5-10min) [id number] 2009 AZEB GRACIA Non-Physician Phone Call To Patient/Provider Brief (5-10min) Non-Physician Phone Call To Patient/Provider Brief (5-10min) [id number] 2009 AZEB GRACIA Diabetic indicator; retinal eye exam, dilated, bilateral 2009 NIKO FRASER Visual Nina Test Intermediate Examination Visual Nina Test Intermediate Examination [id number] 2009 NIKO FRASER [employer] Fitting Bifocal Except For Aphakia Spectacles Services Fitting Bifocal Except For Aphakia 16170 2009 NIKO FRASER Determination Of Refractive State Determination Of Refractive State 64049 2009 NIKO FRASER Ophthalmological New Patient Start Comprehensive Care Ophthalmological New Patient Start Comprehensive Care [id number] 2009 NIKO FRASER [facility] Physical Therapy Service Re-Evaluation Physical Therapy Service Re-Evaluation 29916 2008 MARIA E HARPER Modalities Ultrasound Modalities Ultrasound 82621 2008 MC MOLINA Modalities Ultrasound Modalities Ultrasound 82721 2008 JUAN MCNEIL Modalities Ultrasound Modalities Ultrasound 72350 2008 MC MOLINA Modalities Ultrasound Modalities Ultrasound 59605 2008 ARELY CESAR [facility] Modalities Ultrasound Modalities Ultrasound 71954 2008 MC MOLINA Physical Therapy Service Re-Evaluation Physical Therapy Service Re-Evaluation 32760 2008 MARIA E HARPER [facility] Modalities Heat Hot Packs Modalities Heat Hot Packs 65773 2008 MC MOLINA Modalities Traction Modalities Traction 97322 2008 MC MOLINA [facility] Modalities Traction Modalities Traction 51577 2008 JUAN MCNEIL C DoD Modalities Heat Hot Packs Modalities Heat Hot Packs 15986 2008 JUAN MCNEIL DoD Modalities Traction Modalities Traction 17658 2008 MC MOLINA Modalities Heat Hot Packs Modalities Heat Hot Packs 45989 2008 CM MOLINA Modalities Traction Modalities Traction 40112 2008 MC MOLINA Modalities Heat Hot Packs Modalities Heat Hot Packs 64692 2008 MC MOLINA Modalities Traction Modalities Traction 57668 2008 KOBY MCNEILICA C DoD Modalities Heat Hot Packs Modalities Heat Hot Packs 83349 2008 MCNEILKOBY LynnICA C DoD Modalities Heat Hot Packs Modalities Heat Hot Packs 02128 2008 MC MOLINA Modalities Traction Modalities Traction 65749 2008 MC MOLINA Physical Therapy: ___ Se ion Segments, 15 Minutes Each Physical Therapy: ___ Session Segments, 15 Minutes Each [id number] 2008 MARIA E HARPER [facility] Physical Therapy Service Evaluation Physical Therapy Service Evaluation 31922 2008 MARIA E HARPER [facility] Medical Nutrition Therapy Group (2 or More Individuals) Each 30 Minutes Medical Nutrition Therapy Group (2 or More Individuals) Each 30 Minutes [id number] 2007 TONA LOVING [facility] Dermatological Surgery Cryotherapy Dermatological Surgery Cryotherapy 29085 2006 GALO ANSARI cryotherapy x 4 on forehead w/ 2 freeze thaw cycles [facility] Destruction Of Benign Lesion By Cryosurgery 2005 ANISA PACE DoD Destruction Of Benign Lesion By Any Method One Lesion 2005 ANISA PACE DoD Destruction Of Benign Lesion By Cryosurgery 2005 TEE BYRNE Destruct Of Benign Lesion By Any Method Second Through 14 2005 TEE BYRNE Destruction Of Benign Lesion By Cryosurgery 2004 TEE BYRNE Destruct Of Benign Lesion By Any Method Second Through 14 2004 TEE BYRNE Internet Med Svc Qual Nonphys Healthcare Prof Up To 7 Days Estab Pt 5-10 Min Internet Med Svc Qual Nonphys Healthcare Prof Up To 7 Days Estab Pt 5-10 Min [id number] EUGENE SPRINGER [facility] No data available for this section Ambulato ry Pharmacy Social History Combined list of available smoking, tobacco, and other social history from [facility] facilities. 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 DoD Assessment and Plan Combined list of future care activities from [facility] of Defense and Veterans Affairs facilities (e.g., assessment and plan notes, appointments, orders, and referrals). Additional future care activities may be listed in the Plan of Care section. Result Assessment and Plan Date Source Assessment and Plan No data available for this section 08/12/2024 Ambulatory Pharmacy Functional Status Combined list of recent functional and cognitive assessments recorded at [facility] [place] Functional [place] Measurement (FIM) Scale: 1 = Total Assistance (Subject = 0% +), 2 = Maximal Assistance (Subject = 25% +), 3 = Moderate Assistance (Subject = 50% +), 4 = Minimal Assistance (Subject = 75% +), 5 = Supervision, 6 = Modified Warroad (Device), 7 = Complete [place] (Timely, Safely). Assessment Date/Time Source Assessment Type Assessment Skill Assessment Score Assessment Details No data available for this section
--- OUTSIDE RECORDS SUMMARY | 2024-08-12 07:16 | XMS_ITS | Encounter Summary ---
Author Organization [facility] Address [address] [place] [address] Phone Care Team Providers Care [employer] Worker Name Role Phone Lora Bajwa MD Unavailable + [phone] Bhargavi Tena MD Primary Care Provider Encounter Details Date Type Department Care Team (Late st Contact Info) Description 05/26/2022 Orders Only [facility] Scanning, Provider Social History Tobacco Use Types Packs/Day Years Used Date Smoking Tobacco: Former Cigarettes Q uit: 12/19/1993 Smokeless Tobacco: Never Sex and Gender Information Value Date Recorded Sex Assigned at Not on file 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 Gender Identity Male 02/26/2020 6:57 AM CDT Sexual Orientation Straight 02/26/2020 6: 57 AM CDT documented as of this encounter Plan of Treatment Not on file documented as of this encounter Procedures Procedure Name Priority Date/Time Associated Diagnosis Comments SCAN - LABS 05/26/2022 documented in this encounter Results * SCAN - LABS (05/26/2022) us Provider Scanning Final Result documented in this encounter Visit Diagnoses Not on filedocumented in this encounter Care Teams [employer] Worker Relationship Specialty Start Date End Date Bhargavi Tena MD [address] [facility] [address] [place], [place] [id number] PCP - General Family Medicine 11/30/20 Lora Bajwa MD [facility] [place] [address] Referring Physician Family Practice 11/20/18 documented as of this encounter
--- OUTSIDE RECORDS SUMMARY | 2024-08-12 07:16 | XMS_ITS | Encounter Summary ---
Author Name [facility] Organization [facility] [place] Address [address] [place] [address] Care Team Providers Care Behavioral Therapy Coordinator Name Role Phone HUMA MATHIS Primary Care Provider Unavail le Insurance Providers: [...] PART A May 18, 2020 PART A [id number] KRAIGEstella RENDON PATIENT MEDICARE (WNR) MEDICARE (M) PART B May 18, 2020 PART B [id number] WALIEstella CRUZ JUSTICE PATIENT -FO R-LIFE TRICA RE FOR LIFE WNR May 18, 2020 FOR LIFE [id number] [phone] KRAIGEstella RENDON PATIENT Selected Encounter This section includes the information on record at OR for the Encounter. Date/Time Encounter Type Encounter Description Reason Provider Source Feb 20, 2024 08:30 AM OFFICE O/P EST MOD 30 MIN PRIMARY CARE/MEDICINE ICD-10-CM Z00.00 Encntr for general adult medical exam w/o abnormal findings SHIKHA MATHIS [facility] Encounter Template Text not used by OR Assessments - Encounter Diagnoses This section includes the primary and secondary diagnoses documented for the Encounter. Date/Time Primary/Secondary Diagnosis Diagnosis Name Provider Source Mar 13, 2024 10:45 AM PRIMARY Encntr for general adult medical exam w/o abnormal findings SHIKHA MATHIS [facility] Mar 13, 2024 10:45 AM SECONDARY Basal cell carcinoma of skin of other parts of face SHIKHA MATHIS [facility] Mar 13, 2024 10:45 AM SECONDARY Encounter for immunization CATHERINE LITTLE [facility] Mar 13, 2024 10:45 AM SECONDARY Essential (primary) hypertension SHIKHA MATHIS [facility] Mar 13, 2024 10:45 AM SECONDARY Gastro-esophageal reflux disease without esophagitis SHIKHA MATHIS [facility] Mar 13, 2024 10:45 AM SECONDARY Hyperlipidemia, unspecified SHIKHA MATHIS [facility] Mar 13, 2024 10:45 AM SECONDARY Male erectile dysfunction, unspecified SHIKHA MATHIS [facility] Mar 13, 2024 10:45 AM SECONDARY Rheumatoid arthritis, unspecified SHIKHA MATHIS [facility] Mar 13, 2024 10:45 AM SECONDARY Sensorineural hearing loss, bilateral SHIKHA MATHIS [facility] Mar 13, 2024 10:45 AM SECONDARY Type 2 diabetes mellitus without complications SHIKHA MATHIS [facility] Vital Signs: All taken on the encounter date This section contains inpatient and outpatient Vital Signs collected on the date of the Encounter. Date/Time Temperature Pulse Blood Pressure Respiratory Rate SP02 Pain Height Weight Body Mass Index Source Feb 20, 2024 08:14 AM 97.8 76 138/78 20 96 3 72 263.8 36 [facility] Immunizations: All administered on the encounter date This section contains immunizations associated to the Encounter. Immunization Series Date Issued Reaction Comments PNEUMOCOCCAL CONJUGATE PCV20 , POLYSACCHARIDE [id number] CONJUGATE, ADJUVANT, PF Feb 20, 2024 TDAP Feb 20, 2024 Social History: Smoking Status (Most current) and Tobacco Use (All prior to encounter date) This section includes the most current, and the historical, smoking and tobacco- related health factors from the [place] facility where the Encounter took place. Current Smoking Status This section includes the most current smoking, or tobacco-related health factor, from the [place] facility where the Encounter took place. Date/Time Current Smoking Status Comment Maryam lomas Feb 20, 2024 08:30 AM VA-TOBACCO FORMER USER [facility] Tobacco Use History This section includes a history of the smoking, or tobacco-related health factors, that were collected on or before the date of the Encounter. The data comes from the [place] facility where the Encounter took place. Date/Time Smoking Status/Tobacco Use Comment F acility Feb 20, 2024 08:30 AM VA-TOBACCO QUIT 5 TO < 15 YRS [facility] Aug 14, 2018 04:31 PM [facility]CO [facility] USER [facility] Aug 14, 2018 04:31 PM VA-TOBACCO QUIT 15 YRS OR MORE [facility] Jan 10, 2017 08:35 AM QUIT TOBACCO >7 YEARS AGO [facility] Encounter Notes: All associated encounter notes This section contains the clinical notes associated to the Encounter. Date/Time Encounter Note(s) Provider Source Feb 20, 2024 11:30 AM NURSING NOTE: LOCAL TITLE: V15 PACT FACE TO FACE NOTE ST STANDARD TITLE: NURSING NOTE DATE OF NOTE: FEB 20, 2024@11:30 ENTRY DATE: FEB 20, 2024@11:30:31 AUTHOR: ELENA LITTLE EXP COSIGNER: URGENCY: STATUS: COMPLETED Influenza Immunization: Deferral / Refusal The patient declines to receive the recommended dose of seasonal influenza vaccine. Immunization: INFLUENZA, UNSPECIFIED FORMULATION Refusal Reason: PATIENT DECISION Patient refuses all immunization(s) in the FLU group Date Documented: 02/20/24 11:31 Tdap Immunization: Administered: TDAP Date Administered: Feb 20, 2024 08:30 Logistics Management Specialist: SANOFI PASTEUR Lot: [id number] Exp Date: Jun 17, 2025 [facility]: [phone] Admin Route/Site: INTRAMUSCULAR/RIGHT DELTOID Dosage: 0.5mL Vaccine Information Statement(s): TDAP (TETANUS, DIPHTHERIA, PERTUSSIS) VACCINE VIS Jan 21, 2021 ([facility]) Order By: Huma Mathis Administered By: Elena Little Vaccine Information Sheet (VIS) was given to the patient/caregiver, education regarding adverse reactions was discussed, as well as barriers to learning, if any, were acknowledged. Pneumococcal Conjugate Vaccine (PCV15/PCV20): PCV20 (Prevnar 20) Administered: PNEUMOCOCCAL CONJUGATE PCV20, POLYSACCHARIDE [id number] CONJUGATE, ADJUVANT, PF Date Administered: Feb 20, 2024 08:30 Logistics Management Specialist: [employer] Lot: [id number] Exp Date: Feb 15, 2025 [facility]: [phone] Admin Route/Site: INTRAMUSCULAR/LEFT DELTOID Dosage: 0.5mL Vaccine Information Statement(s): PNEUMOCOCCAL CONJUGATE ([id number]) VIS October 27, 2022 ([facility]) Order By: Huma Mathis Administered By: Elena Little Vaccine Information Sheet (VIS) was given to the patient/caregiver, education regarding adverse reactions was discussed, as well as barriers to learning, if any, were acknowledged. /shawn/ ELENA LITTLE LPN LICENSED PRACTICAL NURSE Signed: 02/20/2024 11:38 ELENA LITTLE [facility] Feb 20, 2024 09:31 AM NURSING IMMUNIZATI ON NOTE: LOCAL TITLE: CLINIC ADMINISTERED IMMUNIZATION/MEDICATION(S) STANDARD TITLE: NURSING IMMUNIZATION NOTE DATE OF NOTE: FEB 20, 2024@09:31:20 ENTRY DATE: FEB 20, 2024@09:31:20 AUTHOR: HUMA MATHIS EXP COSIGNER: URGENCY: STATUS: COMPLETED Documented: RSV, RECOMBINANT, PROTEIN SUBUNIT RSVPREF, ADJUVANT RECONSTITUTED, 0.5 ML, PF Historical Date Administered: Jan 31, 2023 Information Source: FROM PATIENT'S WRITTEN RECORD /YONY Garay, AGNP-C NURSE PRACTITIONER Signed: 02/20/2024 09:31 HUMA MATHIS [facility] Feb 20, 2024 08:19 AM NURSING NOTE: LOCAL TITLE: V15 PACT FACE TO FACE NOTE STL STANDARD TITLE: NURSING NOTE DATE OF NOTE: FEB 20, 2024@08:19 ENTRY DATE: FEB 20, 2024@08:19:21 AUTHOR: GRADY HIGGINS EXP COSIGNER: URGENCY: STATUS: COMPLETED Provider Visit: Patient Identifiers : Full Name Date of Reason for visit: Establish Care Mode of Arrival: Ambulatory Allergy Review: Patient has answered NKA Allergy list reviewed and remains current. Recent Vital Signs: Temperature: 97.8 F [36.6 C] (02/20/2024 08:14) Pulse: 76 (02/20/2024 08:14) Respiration: 20 (02/20/2024 08:14) B/P: 138/78 (02/20/2024 08:14) Pain: 3 (02/20/2024 08:14) Wt: 263.8 lb [119.66 kg] (02/20/2024 08:14) Ht: 72 in [182.9 cm] (02/20/2024 08:14) BMI: 35.9 POX: 96% (02/20/2024 08:14) Would you like to discuss any personal problem, family problem, alcohol use, drug use, or a mental or emotional illness? No Contact provided Primary Care phone number and encouraged to call if any questions or concerns. Review that after hours nurse line [phone] and emergency room are available 08/01 for patient use. Contact verbalized good understanding. Suicide Screen: C-SSRS Screening [place]-Suicide Severity Rating Scale (C-SSRS Screener) 1. Over the past month, have you wished you were or wished you could go to sleep and not wake up? No 2. Over the past month, have you had any actual thoughts of killing yourself? No 3. Over the past month, have you been thinking about how you might do this? Response not required due to responses to other questions. 4. Over the past month, have you had these thoughts and had some intention of acting on them? Response not required due to responses to other questions. 5. Over the past month, have you started to work out or worked out the details of how to kill yourself? Response not required due to responses to other questions. 6. If yes, at any time in the past month did you intend to carry out this plan? Response not required due to responses to other questions. 7. In your lifetime, have you ever done anything, started to do anything, or prepared to do anything to end your life (for example, collected pills, obtained a gun, gave away valuables, went to the roof but didn't jump)? No 8. If YES, was this within the past 3 months? Response not required due to responses to other questions. 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 [place]/caregiver declines Toxic Exposure Screening at this time. Reason: Doesn't think he was exposed The [place]/caregiver was informed that if they should change their mind and would like to be screened in the future to contact their provider/healthcare team. Printed information was offered and provided if desired. COVID-19 Immunization: Refused Moderna Monovalent COVID-19 vaccine Immunization: COVID-19 (MODERNA), MRNA, LNP-S, PF, 50 MCG/0.5 ML (AGES 12+ YEARS) Refusal Reason: PATIENT DECISION Patient refuses all immunization(s) in the COVID-19 group Date Documented: 02/20/24 08:26 Alcohol Use Screen (AUDIT-C): Alcohol Screen: SCREEN FOR ALCOHOL (AUDIT-C) An alcohol screening test (AUDIT-C) was negative (score=0). 1. How often did you have a drink containing alcohol in the past year? Consider a drink to be a 12 ounce can or bottle of regular beer, 8 ounces of malt liquor, a 5 ounce glass of table wine, or a 1.5 ounce shot of liquor (like scotch, gin, or vodka). Never 2. How many drinks containing alcohol did you have on a typical day when you were drinking in the past year? Response not required due to responses to other questions. 3. How often did you have six or more drinks on one occasion in the past year? Response not required due to responses to other questions. Depression Screening: Perform PHQ-2 A PHQ-2 screen was performed. The score was 0 which is a negative screen for depression. Over the past two weeks, how often have you been bothered by the following problems? 1. Little interest or pleasure in doing things Not at all 2. Feeling down, depressed, or hopeless Not at all Homelessness/Food Insecurity Screen: In the past 2 months, have you been living in stable housing that you own, rent, or stay in as part of a household? Yes - Living in stable housing. Are you worried or concerned that in the next 2 months you may NOT have stable housing that you own, rent, or stay in as part of a household? No - Not worried about housing near future The reports the following: Within the past 12 months, you worried whether your food would run out before you got money to buy more. Never true Within the past 12 months, the food you bought just didn't last and you didn't have money to get more. Never true Influenza Immunization: The patient has received the seasonal influenza vaccine for the current season at another location. Documented: INFLUENZA, UNSPECIFIED FORMULATION Historical Date Administered: Jan 17, 2023 Series: Booster Outside Location: [facility] Information Source: FROM PATIENT'S RECALL Tobacco Use Screening: The patient is a former tobacco user. The patient quit five to less than fifteen years ago. Learning Assessment: - * This patient's learning ABILITIES, BARRIERS to learning, CULTURAL and DRUZE beliefs, and learning PREFERENCES were assessed. Following are findings of note: Patient reads well. Patient has the following hearing/auditory barrier(s) to consider when teaching: Hard of hearing. LANGUAGE Patient reports that Mexican is preferred language for healthcare. Patient reports learning preference is to refer to handouts. Patient reports learning preference is attending one-to-one or group demonstrations. Pneumococcal Conjugate Vaccine (PCV15/PCV20): The patient may have been vaccinated in the past but written documentation of vaccination is not available today. Patient instructed to obtain a written record of the prior vaccine and bring it to the next appointment. Tdap Immunization: The patient may have been vaccinated in the past but written documentation of vaccination is not available today. Patient instructed to obtain a written record of the prior vaccine and bring it to the next appointment. /shawn/ GRADY HIGGINS RN MSN REGISTERED NURSE Signed: 02/20/2024 08:36 GRADY HIGGINS [facility] Feb 20, 2024 08:06 AM PRIMARY CARE INITI AL EVALUATION NOTE: LOCAL TITLE: PRIMARY CARE PROVIDER NEW VISIT ST STANDARD TITLE: PRIMARY CARE INITIAL EVALUATION NOTE DATE OF NOTE: FEB 20, 2024@08:06 ENTRY DATE: FEB 20, 2024@08:07:02 AUTHOR: HERI,HUMA L EXP COSIGNER: URGENCY: STATUS: COMPLETED REASON FOR VISIT/CHIEF COMPLAINT: Establish care HPI: PMH, see problem list The patient is a 68 y/o male who presents to the primary care clinic to establish care. [place] is accompanied to clinic with his spouse. Community Providers: -PCP: Dr. Bhargavi Tena, [facility] -Rheumatology: Dr. Mayte Renteria, [facility] rheumatology -Urology: Dr. Asad Woody -Audiology: Dr. Jaylene Chapman -Dermatology: Dr. Johanna Wagner -Podiatry: Dr. Charleen Stewart -Optometry: Dr. Randolph Lassiter -Dentist: Dr. Amanda López Rheumatoid arthritis. Symptoms stable on current regiment. Following with private [facility]. HLD. Tolerating statin. LDL goal <100. Denies c/o myalgias or arthralgias HTN. Home BP readings: 120-130/70-80's. Denies: SOB, CP, GAITAN, Blurred vision, peripheral edema. Recently treated for right otitis media. Symptoms gradually improving. Minimal erythema to right TM today. Vet plans to follow up with his outside provider. H/O left inguinal hernia repair. Complains of left groin pain every 10 days. Offered imaging to assess hernia. Vet plans to follow up with his outside provider. SOURCE(S) OF HISTORY: Patient, spouse, LEONA HENRY, vet my chart PAST MEDICAL HISTORY: 1) Hypertension 2) Sensorineural hearing loss, bilateral 3) Body mass index 30+ - obesity 4) Hyperlipidemia 5) Inflammatory arthritis 6) Diabetes Mellitus Type 2 [facility] [id number]) 7) Hyperlipidemia ([facility] [id number]) CHICKEN POX: Yes SURGICAL HISTORY: -bilateral inguinal hernia repair -Left rotator cuff repair 06/05/2023 -renal calculi extraction FAMILY MEDICAL HISTORY: Father: lung cancer, Mother: Dementia and glaucoma, Sister: lung cancer, MGM: glaucoma SOCIAL HISTORY: Nicotine: former user, quit 12/20/1993, smoked 2 PPD x ~15 years Alcohol: denies Illicit Drugs: denies MARITAL STATUS: HISTORY: 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 MEDICATIONS: Active and Recently Outpatient Medications (excluding Supplies): Active Non-VA Medications Status 1) Non-VA ASPIRIN 81MG EC TAB 81MG BY MOUTH ONCE A DAY ACTIVE 2) Non-VA CETIRIZINE HCL 10MG TAB 10MG BY MOUTH ONCE A ACTIVE DAY 3) Non-VA ESOMEPRAZOLE 20MG (BASE) EC CAP 20MG BY MOUTH ACTIVE EVERY MORNING BEFORE A MEAL 4) Non-VA FOLIC ACID 1MG TAB 1MG BY MOUTH ONCE A DAY ACTIVE 5) Non-VA HYDROXYCHLOROQUINE SULFATE 200MG TAB 100MG BY ACTIVE MOUTH TWICE A DAY 6) Non-VA LEFLUNOMIDE 10MG TAB 10MG BY MOUTH ONCE A DAY ACTIVE 7) Non-VA METHOTREXATE NA 2.5MG TAB 2.5MG BY MOUTH EVERY ACTIVE WEEK 8) Non-VA TELMISARTAN 80MG TAB 40MG BY MOUTH ONCE A DAY ACTIVE MEDICATION RECONCILIATION: completed REVIEW OF SYSTEMS: See HPI for further details of positive complaints. All 10 systems reviewed and otherwise negative. PHYSICAL EXAMINATION: VITALS (most recent, as listed in the electronic record): Temperature: 97.8 F [36.6 C] (02/20/2024 08:14) BP: 138/78 (02/20/2024 08:14) Pulse: 76 (02/20/2024 08:14) Resp: 20 (02/20/2024 08:14) PulsOx: 96% (02/20/2024 08:14) Pain: 3 (02/20/2024 08:14) Weight: Measurement DT WEIGHT LB(KG)[BMI] 02/20/2024 08:14 263.8(119.66)[36*] PHYSICAL EXAMINATION: General appearance: well-groomed, well-nourished, in no distress HEENT: sclera/conjunctiva clear, TMs pearly duran left ear, Minimal erythema to right TM Neck: supple, no lymphadenopathy or thyromegaly Cardiovascular: RRR, no murmur, no gallop Respiratory: CTA, no wheezes, crackles or rhonchi ABD/GI: obese contour, bs + in all quads, non-tender M/S: normal gait and posture Extremities: radial/PT pulses 2+, warm, well-perfused Psych: normal affect Neuro: Alert and oriented x 3 Skin: warm, dry, normal color and texture, skin intact ASSESSMENT/PLAN: # Preventative Healthcare/Annual visit - routine healthcare, preventative screenings, and immunizations reviewed. # HTN: - Blood pressure controlled - Continue irbesartan/HCTZ 300/12.5 mg/day and clonidine 0.1mg HS - Trend renal function - Lifestyle modifications reviewed with diet(DASH) and exercise. - Self-monitor BP at home and report readings consistently above goal of <130/80 # HLD: - Continue rosuvastatin 10mg/day - Trend lipid panel - Lifestyle modifications reviewed - Weight reduction encouraged # NIDDM: - Diet controlled. Last A1C was 6.1%. - Continue lifestyle modifications with diet and exercise. # Rheumatoid arthritis: - Eval/management per [facility] - Stable. Continue methotrexate 10 mg/week, Plaquenil 200 mg BID, folic acid 1 mg/day, golimumab 200mg inf q8w # GERD: - Reports symptoms are stable on esomeprazole 20 mg/day - Avoid dietary triggers # ED: - Symptoms controlled on sildenafil 100mg PRN - No change to medication dose today - Medication s/e and safety reviewed. # H/O BCC: - Surveillance skin assessment annually per private [employer] # Sensorineural hearing loss: - Has hearing aid bilaterally. HM: AAA screen: awaiting outside records Colorectal cancer screening: Last completed: C-scope 01/23/2024, diverticulosis, Repeat 10 years Due: 01/2034 Prostate cancer screening: Last completed: No PSA EO data found Lung cancer screening: Eligibility: quit smoking >15 years ago ADMINISTERED Immunization Series Date Facility Reaction Info INFLUENZA, SPLIT VIRUS, QUADRIVA* 03/19/2019 [facility]* <C> NOVEL [id number] 03/18/2015 [facility] PNEUMOCOCCAL POLYSACCHARIDE PPV23 1 03/18/2015 [facility] PNEUMOCOCCAL POLYSACCHARIDE PPV23 03/15/2015 Non [facility]OSTER LIVE 01/10/2017 [facility]* RETURN TO CLINIC: annually or sooner PRN Pneumococcal Conjugate Vaccine (PCV15/PCV20): See orders. Tdap Immunization: See orders PTSD Screening: PC-PTSD-5 A PTSD screening test (PC-PTSD-5) was negative (score=0). IN THE PAST MONTH, have you ever had any experience that was so frightening, horrible or traumatic. For example: A serious accident or fire a physical or sexual assault or abuse An earthquake or flood A war Seeing someone be killed or seriously injured Having a loved one through homicide or suicide 1. Have you ever experienced this kind of event? YES 2. Had nightmares about the event(s) or thought about the event(s) when you did not want to? NO 3. Tried hard not to think about the event(s) or went out of your way to avoid situations that reminded you of the event(s)? NO 4. Been constantly on guard, watchful, or easily startled? NO 5. Banks numb or detached from people, activities, or your surroundings? NO 6. Banks guilty or unable to stop blaming yourself or others for the event(s) or any problems the event(s) may have caused? NO Assess Statin Use - Lipids (CVD/DM): The patient is already on a statin. The patient is on a statin from a source outside this [place]. Medication list updated. RHS Screen: RHS Screen Session Format: Face to Face Environmental Check Screening was not completed at this time due to: Another adult present Influenza Immunization: The patient has received the seasonal influenza vaccine for the current season at another location. Documented: INFLUENZA, UNSPECIFIED FORMULATION Historical Date Administered: Jan 31, 2023 Information Source: FROM PATIENT'S WRITTEN RECORD Herpes Zoster (Shingles) Vaccine: Prior Herpes Zoster vaccination Herpes zoster (shingles) vaccine given previously - written records available Zoster Recombinant (Shingrix): Documented: ZOSTER RECOMBINANT Historical Date Administered: May 09, 2022 Series: Series 1 Information Source: FROM PATIENT'S WRITTEN RECORD Documented: ZOSTER RECOMBINANT Historical Date Administered: Oct 03, 2022 Series: Series 2 Information Source: FROM PATIENT'S WRITTEN RECORD Pneumococcal Conjugate Vaccine (PCV15/PCV20): Pneumococcal vaccine given previously - written records available Documented: PNEUMOCOCCAL POLYSACCHARIDE PPV23 Historical Date Administered: May 18, 2020 Information Source: FROM PATIENT'S WRITTEN RECORD Tdap Immunization: Td/Tdap given previously - written records available The patient has previously received the Tetanus, Diphtheria, Pertussis vaccine (Tdap). Documented: TDAP Historical Date Administered: Aug 28, 2013 Information Source: FROM PATIENT'S WRITTEN RECORD COVID-19 Immunization: Patient received a prior dose of the Moderna Monovalent vaccine. Documented: COVID-19 (MODERNA), MRNA, LNP-S, PF, 50 MCG/0.5 ML (AGES 12+ YEARS) Historical Date Administered: Mar 23, 2023 Information Source: FROM PATIENT'S WRITTEN RECORD Patient received a prior dose of the Moderna Bivalent booster. Documented: COVID-19 (MODERNA), MRNA, LNP-S, BIVALENT, PF, 50 MCG/0.5 ML OR 25MCG/0.25 ML DOSE Historical Date Administered: Feb 17, 2022 Series: Series 1 Information Source: FROM PATIENT'S WRITTEN RECORD Moderna Patient received a prior dose of the Moderna COVID-19 Vaccine. Documented: COVID-19 (MODERNA), MRNA, LNP-S, PF, 100 MCG/0.5ML DOSE OR 50 MCG/0.25ML DOSE Historical Date Administered: Aug 05, 2020 Series: Series 1 Information Source: FROM PATIENT'S WRITTEN RECORD Patient received a prior dose of the Moderna COVID-19 Vaccine. Documented: COVID-19 (MODERNA), MRNA, LNP-S, PF, 100 MCG/0.5ML DOSE OR 50 MCG/0.25ML DOSE Historical Date Administered: Sep 06, 2020 Series: Series 2 Information Source: FROM PATIENT'S WRITTEN RECORD Patient received a prior dose of the Moderna COVID-19 Vaccine. Documented: COVID-19 (MODERNA), MRNA, LNP-S, PF, 100 MCG/0.5ML DOSE OR 50 MCG/0.25ML DOSE Historical Date Administered: Feb 13, 2021 Series: Series 3 Information Source: FROM PATIENT'S WRITTEN RECORD Patient received a prior dose of the Moderna COVID-19 Vaccine. Documented: COVID-19 (MODERNA), MRNA, LNP-S, PF, 100 MCG/0.5ML DOSE OR 50 MCG/0.25ML DOSE Historical Date Administered: Sep 25, 2021 Information Source: FROM PATIENT'S WRITTEN RECORD /shawn/ HUMA MATHIS, MSN, AGNP-C NURSE PRACTITIONER Signed: 02/20/2024 09:36 HUMA MATHIS [facility]
--- OUTSIDE RECORDS SUMMARY | 2024-08-12 07:16 | XMS_ITS | Clinical Summary ---
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 Role Phone Lora Bajwa MD Unavailable [phone] Bhargavi Tena MD Primary Care Provider Allergies No known active allergies Medications aspirin 81 mg tablet Take 1 tablet (81 mg total) by mouth daily 8 Active econazole 1 % cream APPLY TO FEET TWICE DAILY 1 Active cloNIDine (CATAPRES) 0.1 mg tablet 1 tablet (0.1 mg total) 2 (two) times a day 2 Active GOLIMUMAB IVIndications:R heumatoid Arthritis ions golimumab (SIMPONI ARIA) 200 mg in sodium chloride 0.9% 100 mL IVPB Every 8 weeks Week of 04/30/2022 200 mg, intravenous, Administer over 30 Minutes, Once, Starting at treatment start time Maintenance Dose Last released: Sun03/07/2022 Active FLUoxetine (PROzac) 20 mg capsule Take 1 capsule (20 mg total) by mouth daily 3 Active rosuvastatin (CRESTOR) 10 mg tablet Take 1 tablet (10 mg total) by mouth daily 3 Active sildenafiL (VIAGRA) 100 mg tablet Take 1 tablet (100 mg total) by mouth daily as needed for erectile dysfunction Active irbesartan-hydr oCHLOROthiazide (AVALIDE) 300-12.5 mg per tablet Take 1 tablet by mouth daily 4 Active folic acid (FOLVITE) 1 mg tablet Take 1 tablet (1 mg total) by mouth daily 90 tablet 1 4 Active hydroxychloroqu ine (PLAQUENIL) 200 mg tabletIndicatio ns:Rheumatoid Arthritis Take 1 tablet (200 mg total) by mouth 2 (two) times a day 180 tablet 1 4 Active methotrexate 2.5 mg tabletIndicatio ns:Rheumatoid Arthritis Take 10 tablets (25 mg total) by mouth once a week 120 tablet 1 4 Active amLODIPine (NORVASC) 5 mg tablet Take 1 tablet (5 mg total) by mouth nightly at bedtime 4 Active Active Problems Problem Noted Date Diagnosed Date Age-related cataract of both eyes 11/14/2023 Allergic rhinitis 11/14/2023 Cervicalgia 11/14/2023 Combined forms of age-related cataract Congenital anomaly of gallbladder, bile ducts, a nd liver 11/14/2023 Hypertrophic and atrophic condition of skin 10/17 Overview (11/14/2023): follow up as needed Dermatochalasis 11/14/2023 Headache syndrome 11/14/2023 Hearing loss 11/14/2023 Herniation of intervertebral disc of cervical re gion 11/14/2023 High prostate specific antigen (PSA) 11/14/2023 Hyperlipidemia 11/14/2023 Overview (11/14/2023): ELEVATED LIPIDS RT OBESITY AND EXCESSIVE FAT INTAKE AEB HIS ELEVATED TOTAL AND LDL CHOLESTEROL. Anisometropia 11/14/2023 Hyperopia 11/14/2023 Myopia 11/14/2023 Essential hypertension 11/14/2023 Hypertension 11/14/2023 Impaired fasting glucose 11/14/2023 Overview (11/14/2023): ALTERED GLUCOSE RT OBESITY AEB HIS ELEVATED FBG. Mild nonproliferative diabetic retinopathy 11/13 Sensorineural hearing loss, bilateral 11/14/2023 Mixed conductive and sensori neural hearing loss, unilateral, right ear with restricted hearing on the contralateral side 11/14/2023 Sensorineural hearing loss, bilateral 11/14/2023 Other seborrheic keratosis 11/14/2023 Overview (11/14/2023): cyrotherapy on right mid flank and right posterior arm x 2 freeze thaw cycles; pt reassured benign Presbyopia 11/14/2023 Rash 11/14/2023 Overview (11/14/2023): bland soaps, no scratching, emollient cream and elidel as needed. Follow up if sx's worsen or don't resolve. Regular astigmatism 11/14/2023 Retinal telangiectasia 11/14/2023 Sciatica 11/14/2023 Severe acute respiratory syn drome coronavirus 2 (SARS-CoV-2) test result unknown 11/14/2023 Testicular neoplasm 11/14/2023 Tinea cruris 11/14/2023 Dermatophytosis 11/14/2023 Type 2 diabetes mellitus 11/14/2023 Inflammatory arthritis 11/14/2023 Plantar fasciitis 11/14/2023 Backache 11/14/2023 Chest pain 11/14/2023 Obesity 11/14/2023 Overview (11/14/2023): OBESITY RT EXCESSIVE ENERGY INTAKE AEB HIS ABOVE NORMATIVE STANDARD BMI FOR AGE AND GENDER. Rheumatoid arthritis of [facility] with negative rheumatoid factor ([facility]) 03/05/2018 High risk medication use 03/05/2018 Obesity with body mass index 30 or greater 06/06 Joint stiffness 06/06/2017 Arthritis 09/02/2015 Swelling of hand 09/01/2015 Lumbago 09/01/2015 Joint pain 09/01/2015 Encounters Date Type Department Care Team Description 07/04/2024 Documentation [facility] Rheumatology [address] [facility] [address] [place] [address] Chandana Maurice Eye Exam (14-24 Quantum ok for plaquenil) 06/20/2024 9:30 AM [facility] Infusion [facility] Infusion Therapy [address] [facility] [address] [place] [address] Rheumatoid arthritis of 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 (CMS/HCC) (HCC) (Primary Dx) 06/20/2024 9:18 AM [facility] - 06/20/2024 11:59 PM [facility] Hospital Encounter [address] [address] Rheumatoid arthritis of 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 (CMS/HCC) (HCC); High risk medication use Discharge Disposition: Discharge to home or self care from Last 3 Months Surgical History Surgery Date Site/Laterality Comments INGUINAL HERNIA REPAIR Inguinal Hernia Repair - (Added by TW Conv) REFRACTIVE SURGERY ROOT CANAL 01/16/2019 - 02/15/2019 ROTATOR CUFF REPAIR 06/05/2023 Left COLONOSCOPY January 2024 Medical History Medical History Date Comments Personal history of other en docrine, nutritional and metabolic disease History of diabetes mellitus - (Added by TW Conv) Personal history of other di seases of the circulatory system History of hypertension - (A dded by TW Conv) Personal history of other di seases of the nervous system and sense organs History of hearing loss - (A dded by TW Conv) Personal history of other di seases of the nervous system and sense organs History of sciatica - (Added by TW Conv) Personal history of other en docrine, nutritional and metabolic disease History of hyperlipi demia - (Added by TW Conv) Enlarged prostate without lo wer urinary tract symptoms (luts) BPH (benign prostatic hy perplasia) - (Added by TW Conv) History of diabetes mellitus , type II Hypertension Obesity HLD (hyperlipidemia) BPH (benign prostatic hyperplasia) Sciatica Hearing loss Basal cell carcinoma Inflammatory arthritis Plantar fasciitis 2018 Foot pain, bilateral Top of both feet Pneumonia 04/22/2019 Wheeze Tinnitus Diabetes mellitus (HCC) Type II Family History Medical History Relation Name Comments Cancer Father Lincoln Fleming Sr Diabetes Father Lincoln Fleming Sr Fa yvette history of diabetes mellitus - (Added by TW Conv) Heart disease Father Lincoln Fleming Sr F amily history of cardiac disorder - (Added by TW Conv) Hypertension Father Lincoln Fleming Sr Fa yvette history of hypertension - (Added by TW Conv) Lung cancer Father Lincoln Fleming Sr Fa yvette history of lung cancer - (Added by TW Conv) Relation Name Status Comments Father Lincoln Fleming Sr Social History Tobacco Use Types Packs/Day Years Used Date Smoking Tobacco: Former Cigarettes Q uit: 12/19/1993 Passive Smoke Exposure: Past Smokeless Tobacco: Never Tobacco Cessation:Counseling Given: Not Answered Sex and Gender Information Value Date Recorded Sex Assigned at Not on file Legal Sex Male 12:56 AM [facility] Gender Identity Male 02/26/2020 6:57 AM CDT Sexual Orientation Straight 02/26/2020 6: 57 AM CDT Obstetrics History Last Filed Vital Signs Vital Sign Reading Time Taken Comments Blood Pressure 123/84 04/23/2024 10:52 AM [facility] Pulse 78 04/23/2024 10:52 AM [facility] Temperature 37.1 C (98.7 F) 04/23/2024 10:52 AM [facility] Respiratory Rate - - Oxygen Saturation 100% 04/23/2024 10:52 AM [facility] Inhaled Oxygen Concentration - - Weight 122 kg (269 lb) 04/23/2024 10:52 AM [facility] Height 182.9 cm (6') 04/23/2024 10:52 AM [facility] Body Mass Index 36.48 04/23/2024 10:52 AM [facility] Plan of Treatment Health Maintenance Due Date Last Done Comments Albumin Creatinine Ratio, Urine 1955 Colon Cancer Screening-Colonoscopy 1955 Depression Screening 1955 Fall Risk Assessment 1955 Hemoglobin A1C 1955 Hepatitis C Screening 1955 Prostate Cancer Screening-PSA 1955 Dilated Eye Exam 1955 Foot Exam 1955 Lipid Panel 1955 Hepatitis B Screening 1973 Abdominal Aortic Aneurysm (A AA) Screen 2020 10/17/2016 Well Visit 65+ 2020 Pneumococcal vaccine 65+ (3 of 3 - PCV) 05/18/2021 05/18/2020, 03/18/2015, 03/15/2015 Influenza Vaccine (#1) 2024 3, 01/17/2023, 02/19/2020, Additional history exists eGFR 06/20/2025 06/20/2024, 02/16, 11/06/2023, Additional history exists DTaP/Tdap/Td Vaccine (4 - Td or Tdap) 02/19/2034 02/20/2024, 08/28/2013, 03/17/2011 Zoster Vaccine Completed 10/03/2022, 04/19, 01/10/2017, Additional history exists Procedures Procedure Name Priority Date/Time Associated Diagnosis Comments EGFR Routine 06/20/2024 11:30 AM [facility] High risk medication use DIFFERENTIAL AUTO Routine 06/20/2024 11: 30 AM [facility] High risk medication use CBC WITH AUTO DIFFERENTIAL Routine 06/20/2024 11:30 AM [facility] High risk medication use COMPREHENSIVE METABOLIC PANEL Routine 06/20/2024 11:30 AM [facility] High risk medication use ERYTHROCYTE SEDIMENTATION RATE Routine 06/20/2024 11:30 AM [facility] Rheumatoid arthritis of 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 (CMS/HCC) (HCC) CRP (ACUTE PHASE) Routine 06/20/2024 11: 30 AM [facility] Rheumatoid arthritis of 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 (CMS/HCC) (HCC) T-SPOT.TB Routine 06/20/2024 11:30 AM [facility] High risk medication use CT ABDOMEN PELVIS WO CONTRAST Routine 10/17/2016 6:59 AM CDT from Last 3 Months or Most Recently Relevant to Health Maintenance Results * T-SPOT.TB Blood (06/20/2024 11:30 AM [facility]) [facility] T-SPOT.TB Negative SeeBelow Comment: Normal Value: Negative A negative test result does not exclude the possibility of exposure to or infection with Mycobacterium tuberculosis (M. tuberculosis). Patients with recent exposure to TB infected individuals exhibiting a negative T-SPOT.TB result should be considered for retesting within 6 weeks or if other relevant clinical symptoms indicate. Results from T-SPOT.TB testing must be used in conjunction with each individual's epidemiological history, current medical status, and results of other diagnostic evaluations. The T-SPOT.TB test is qualitative and results are reported as positive, borderline or negative, given that the test controls perform as expected. In line with the [facility] for Disease Control and Prevention's 2010 recommendation to report quantitative measurements alongside the qualitative result, the laboratory provides spot counts for informational purposes only. The T-SPOT.TB test should not be interpreted as a quantitative test. T-SPOT.TB Panel A Spot Count 0 [facility] T-SPOT.TB Panel B Spot Count 0 [facility] T-SPOT.TB Negative Control Passed [facility] T-SPOT.TB Positive Control Passed [facility] Comment: Test Performed at: [email or web address] [address] CUAUHTEMOC GALICIA,PHD Blood 06/20/2024 11:3 0 AM [facility] 06/20/2024 12:52 PM [facility] Malina Renteria NP LAB MICROBIOLOGY - GENERAL ORDERABLES Final Result [facility] Department [place] [address] * eGFR (06/20/2024 11:30 AM [facility]) eGFR >90 >=60 mL/min/1. 73 m2 Comment: Interpretive Data Reference Interval Normal >/= 90 mL/min/1.73m2 Mildly decreased* 60 - 89 mL/min/1.73m2 Mildly to moderately decreased 45 - 59 mL/min/1.73m2 Moderately to severely decreased 30 - 44 mL/min/1.73m2 Severely decreased 15 - 29 mL/min/1.73m2 Kidney Failure < 15 mL/min/1.73m2 *Relative to young adult level Estimated glomerular filtration rate is determined by the 2020 CKD-EPI equation recommended by the National Kidney Foundation (A Unifying Approach to GFR Estimation: Recommendations of the NKF-ASK Task Force on Reassessing the Inclusion of Race in Diagnosing Kidney Disease, JASN 2020). The CKD-EPI equation should not be used for patients with unstable renal function and has not been validated in children and those over 70. Current interpretive data was last reviewed 2021. Blood 06/20/2024 11:3 0 AM [facility] 06/20/2024 12:26 PM [facility] us Malina Renteria [employer] MECH[employer]IC LAB BLOOD ORDERABLES Final Result [facility] Department [place] [address] * Differential, auto (06/20/2024 11:30 AM [facility]) Neutrophil abs 2.8 1.5 - 6.5 K/cumm Imm gran abs 0.0 0.0 - 0.1 K/cumm [facility] Lymphocyte abs 2.5 0.8 - 3.3 K/cumm [facility] Monocyte abs 0.7 0.2 - 0.8 K/cumm [facility] Eosinophil abs 0.2 0.0 - 0.5 K/cumm [facility] Basophil abs 0.1 0.0 - 0.1 K/cumm [facility] Neutrophil pct 45.1 % [facility] Comment: Interpretive Data Percent cell count reference ranges are not reported, since discordance with absolute values may lead to misinterpretation of CBC data. Current Interpretive Data was last revised on 2017. Imm gran pct 0.2 % [facility] Comment: Interpretive Data Percent cell count reference ranges are not reported, since discordance with absolute values may lead to misinterpretation of CBC data. Current Interpretive Data was last revised on 2017. Lymphocyte pct 40.4 % [facility] Comment: Interpretive Data Percent cell count reference ranges are not reported, since discordance with absolute values may lead to misinterpretation of CBC data. Current Interpretive Data was last revised on 2017. Monocyte pct 10.7 % [facility] Comment: Interpretive Data Percent cell count reference ranges are not reported, since discordance with absolute values may lead to misinterpretation of CBC data. Current Interpretive Data was last revised on 2017. Eosinophil pct 2.6 % [facility] Comment: Interpretive Data Percent cell count reference ranges are not reported, since discordance with absolute values may lead to misinterpretation of CBC data. Current Interpretive Data was last revised on 2017. Basophil pct 1.0 % [facility] Comment: Interpretive Data Percent cell count reference ranges are not reported, since discordance with absolute values may lead to misinterpretation of CBC data. Current Interpretive Data was last revised on 2017. Blood 06/20/2024 11:3 0 AM [facility] 06/20/2024 12:15 PM [facility] Malina Renteria [employer]CH[employer] LAB BLOOD ORDERABLES Final Result Performing Organization Address City/[facility]/ZIP Co de Phone Number [facility] [place] [address] * CBC with auto differential (06/20/2024 11:30 AM [facility]) WBC 6.2 3.8 - 9.9 K/cumm Hgb 15.0 13.0 - 17.5 g/dL [facility] Hct 45.7 38.9 - 50.3 % [facility] Plt 270 150 - 400 K/cumm [facility] MPV 10.2 9.1 - 12.3 fL [facility] RBC 4.89 4.30 - 5.80 M/cumm [facility] MCV 93.5 81.3 - 96.4 fL [facility] MCH 30.7 27.1 - 33.3 pg [facility] MCHC 32.8 32.3 - 35.7 g/dL [facility] RDW CV 13.8 11.1 - 14.9 % [facility] RDW SD 47.5 35.7 - 48.1 fL [facility] NRBC abs 0.00 0.00 - 0.01 K/cumm [facility] Blood 06/20/2024 11:3 0 AM [facility] 06/20/2024 12:15 PM [facility] us Malina Renteria [employer]CH[employer] LAB BLOOD ORDERABLES Final Result Performing Organization Address [facility]/ZIP Co de Phone Number [facility] Department [place] [address] * Erythrocyte sedimentation rate (06/20/2024 11:30 AM [facility]) [facility] Erythrocyte sedimentation rate 8 1 - 20 mm/hr Blood 06/20/2024 11:3 0 AM [facility] 06/20/2024 12:15 PM [facility] Malina Renteria NP LAB BLOOD ORDERABLES Final Result Performing Organization Address [facility] Co de Phone Number [facility] Department [place] [address] * CRP (acute phase) (06/20/2024 11:30 AM [facility]) [facility] CRP 0.9 <=10.0 mg/L Blood 06/20/2024 11:3 0 AM [facility] 06/20/2024 12:15 PM [facility] Malina Renteria NP LAB BLOOD ORDERABLES Final Result Performing Organization Address [facility] de Phone Number [facility] [place] [address] * Comprehensive metabolic panel (06/20/2024 11:30 AM [facility]) [facility] Sodium 141 135 - 145 mmol/L Potassium, pl 4.1 3.3 - 4.9 mmol/L [facility] Chloride 104 97 - 110 mmol/L [facility] CO2 28 22 - 32 mmol/L [facility] Anion gap 9 2 - 15 mmol/L [facility] BUN 14 6 - 25 mg/dL [facility] Creatinine 0.84 0.80 - 1.30 mg/dL [facility] Glucose 156 70 - 199 mg/dL [facility] Comment: Interpretive Data Fasting glucose >/= 126 mg/dl is diagnostic for diabetes. Fasting is defined as no caloric intake for at least 8 hours. Fasting glucose between 100 mg/dl to 125 mg/dl is diagnostic of prediabetes. In a patient with classic symptoms of hyperglycemia or hyperglycemic crisis, a random glucose >/= 200 mg/dl is diagnostic for diabetes. In the absence of unequivocal hyperglycemia, results should be confirmed by repeat testing. The classification and Diagnosis of Diabetes Diabetes Care 2021; 46: S19-S40. Current interpretive data was last revised 2022. Calcium 9.3 8.5 - 10.3 mg/dL [facility] Bilirubin, total 0.6 0.1 - 1.2 mg/dL [facility] Protein, pl 7.8 6.5 - 8.5 g/dL [facility] Albumin 4.4 3.5 - 5.0 g/dL [facility] Alk phos 78 40 - 130 Units/L [facility] ALT 42 7 - 55 Units/L [facility] AST 35 10 - 50 Units/L [facility] Blood 06/20/2024 11:3 0 AM [facility] 06/20/2024 12:15 PM [facility] us Malina Renteria [employer] LAB BLOOD ORDERABLES Final Result Performing Organization Address City/State/[facility] Co de Phone Number [facility] Department [place] [address] * CT Abdomen Pelvis WO Contrast (10/17/2016 6:59 AM CDT) Anatomical Region Laterality Modality Body N/A Computed Tomogra phy 10/17/2016 6:59 AM CDT Impressions 10/17/2016 7:51 AM CDT 1. Nonobstructing 4 - 5 mm calculus at the right ureterovesicular junction. There is resultant mild reactive inflammatory stranding surrounding the right ureter. 2. No additional renal calculi identified. 3. Colonic diverticulosis without CT findings of acute diverticulitis. 4. Bilateral peripelvic renal cysts, left greater than right. Automated exposure control was used as a dose optimization technique for this examination. THIS IS AN ELECTRONICALLY VERIFIED REPORT 10/17/2016 7:47 AM: Guillermo Park M.D. Guillermo Park M.D. HL:hl 07:47 AM 07:47 AM MHE [EOD] Narrative 10/17/2016 7:51 AM CDT EXAMINATION: CT of the abdomen and pelvis. TECHNIQUE: CT images of the abdomen and pelvis were obtained without the administration of contrast. COMPARISON: No prior available. HISTORY: Right-sided flank pain for [address] examination demonstrating a right renal calculus per the patients report. Remote history of smoking. FINDINGS: Minimal right basilar atelectasis. Lung bases are clear of active disease. Abdomen/pelvis: Given the constraint of noncontrast technique, liver is normal in size. No perihepatic inflammation. No calcified gallstones. The pancreas is suboptimally assessed without intravenous contrast, however there is no peripancreatic inflammatory stranding. Spleen is normal in size. No adrenal nodule or mass. There is no right sided hydronephrosis. There is mild periureteral inflammatory stranding throughout the course of the right ureter without dilatation. Findings are secondary to a 4 - 5 mm calculus at the right ureterovesicular junction (series 4 image 154). No additional renal calculi are identified within either the right or left kidney. Multiple bilateral peripelvic renal cysts are present, left greater than right. The abdominal aorta is normal in caliber with mild atherosclerotic disease present. No abdominal or pelvic lymphadenopathy. No bowel obstruction. No focal bowel wall thickening. Normal appendix. There is colonic diverticulosis without CT findings of acute diverticulitis. No pelvic free fluid. Prostate is mildly enlarged. Urinary bladder is grossly normal in appearance. Bone windows: No suspicious lytic or blastic lesion. Mild degenerative disc disease. Procedure Note Provider, MD Lor - 11/03/2020 EXAMINATION: CT of the abdomen and pelvis. TECHNIQUE: CT images of the abdomen and pelvis were obtained without the administration of contrast. COMPARISON: No prior available. HISTORY: Right-sided flank pain for 2 days. Previous outside CTexamination demonstrating a right renal calculus per the patients report. Remotehistory of smoking. FINDINGS: Minimal right basilar atelectasis. Lung bases are clear ofactive disease. Abdomen/pelvis: Given the constraint of noncontrast technique, liver is normal in size. No perihepatic inflammation. No calcified gallstones.The pancreas is suboptimally assessed without intravenous contrast, howeverthere is no peripancreatic inflammatory stranding. Spleen is normal in size.No adrenal nodule or mass. There is no right sided hydronephrosis. There is mild periureteral inflammatory stranding throughout the course of the right ureter without dilatation. Findings are secondary to a 4 - 5 mm calculus at the right ureterovesicular junction (series 4 image 154). No additional renalcalculi are identified within either the right or left kidney. Multiple bilateral peripelvic renal cysts are present, left greater than right. The abdominal aorta is normal in caliber with mild atherosclerotic disease present. No abdominal or pelvic lymphadenopathy. No bowel obstruction.No focal bowel wall thickening. Normal appendix. There is colonic diverticulosis without CT findings of acute diverticulitis. No pelvicfree fluid. Prostate is mildly enlarged. Urinary bladder is grossly normal in appearance. Bone windows: No suspicious lytic or blastic lesion. Mild degenerativedisc disease. IMPRESSION: 1. Nonobstructing 4 - 5 mm calculus at the right ureterovesicular junction. There is resultant mild reactive inflammatory stranding surrounding the right ureter. 2. No additional renal calculi identified. 3. Colonic diverticulosis without CT findings of acute diverticulitis. 4. Bilateral peripelvic renal cysts, left greater than right. Automated exposure control was used as a dose optimization technique forthis examination. THIS IS AN ELECTRONICALLY VERIFIED REPORT 10/17/2016 7:47 AM: Guillermo Park M.D. Guillermo Park M.D. 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
--- OUTSIDE RECORDS SUMMARY | 2024-08-12 07:17 | XMS_ITS | Referral Summary ---
Author Organization [facility] 1 Address [address] [place] [address] Care Team Providers Care Waiter/Waitress Bar Name Role Phone Lora Bajwa MD Unavailable [phone] Bhargavi Tena MD Primary Care Provider Encounters Date Type Department Care Team Description 07/04/2024 Documentation [facility] Rheumatology [address] [facility] 2nd Floor [address] [place] [phone] Chandana Maurice Eye Exam (05-01-24 Quantum ok for plaquenil) 06/20/2024 9:18 AM FIRE CONTROLMAN - 06/20/2024 11:59 PM FIRE CONTROLMAN Hospital Encounter [address] [address] Rheumatoid arthritis of 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 (CMS/HCC) (HCC); High risk medication use Discharge Disposition: Discharge to home or self care 06/20/2024 9:30 AM FIRE CONTROLMAN Infusion [facility] Infusion Therapy [address] [facility] 2nd Floor [address] [place] [phone] Rheumatoid arthritis of 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 (CMS/HCC) (HCC) (Primary Dx) from Last 3 Months Allergies No known active allergies Medications aspirin [...] Cervicalgia 11/14/2023 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 Rheumatoid arthritis of [facility] sites with negative rheumatoid factor ([facility]) 03/05/2018 High risk medication use 03/05/2018 Obesity with body mass index 30 or greater 06/06 Joint stiffness 06/06/2017 Arthritis 09/02/2015 Swelling of hand 09/01/2015 Lumbago 09/01/2015 Joint pain 09/01/2015 Social History Tobacco Use Types Packs/Day Years Used Date Smoking Tobacco: Former Cigarettes Q uit: 12/19/1993 Passive Smoke Exposure: Past Smokeless Tobacco: Never Tobacco Cessation:Counseling Given: Not Answered Sex and Gender Information Value Date Recorded Sex Assigned at Not on file Legal Sex Male 12:56 AM FIRE CONTROLMAN Gender Identity Male 02/26/2020 6:57 AM CDT Sexual Orientation Straight 02/26/2020 6: 57 AM CDT Last Filed Vital Signs Vital Sign Reading Time Taken Comments Blood Pressure 123/84 04/23/2024 10:52 AM FIRE CONTROLMAN Pulse 78 04/23/2024 10:52 AM FIRE CONTROLMAN Temperature 37.1 C (98.7 F) 04/23/2024 10:52 AM FIRE CONTROLMAN Respiratory Rate - - Oxygen Saturation 100% 04/23/2024 10:52 AM FIRE CONTROLMAN Inhaled Oxygen Concentration - - Weight 122 kg (269 lb) 04/23/2024 10:52 AM FIRE CONTROLMAN Height 182.9 cm (6') 04/23/2024 10:52 AM FIRE CONTROLMAN Body Mass Index 36.48 04/23/2024 10:52 AM FIRE CONTROLMAN Plan of Treatment Not on file Procedures Procedure Name Priority Date/Time Associated Diagnosis Comments EGFR Routine 06/20/2024 11:30 AM FIRE CONTROLMAN High risk medication use DIFFERENTIAL AUTO Routine 06/20/2024 11: 30 AM FIRE CONTROLMAN High risk medication use CBC WITH AUTO DIFFERENTIAL Routine 06/20/2024 11:30 AM FIRE CONTROLMAN High risk medication use COMPREHENSIVE METABOLIC PANEL Routine 06/20/2024 11:30 AM FIRE CONTROLMAN High risk medication use ERYTHROCYTE SEDIMENTATION RATE Routine 06/20/2024 11:30 AM FIRE CONTROLMAN Rheumatoid arthritis of 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 (CMS/HCC) (HCC) CRP (ACUTE PHASE) Routine 06/20/2024 11: 30 AM FIRE CONTROLMAN Rheumatoid arthritis of 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 (CMS/HCC) (HCC) T-SPOT.TB Routine 06/20/2024 11:30 AM FIRE CONTROLMAN High risk medication use CT ABDOMEN PELVIS WO CONTRAST Routine 10/17/2016 6:59 AM CDT from Last 3 Months or Most Recently Relevant to Health Maintenance Results * T-SPOT.TB Blood (06/20/2024 11:30 AM FIRE CONTROLMAN) [facility] T-SPOT.TB Negative SeeBelow Comment: Normal Value: [...] perform as expected. In line with the Centers for Disease Control and Prevention's 2010 recommendation to report quantitative measurements alongside the qualitative result, the laboratory provides spot counts for informational purposes only. The T-SPOT.TB test should not be interpreted as a quantitative test. T-SPOT.TB Panel A Spot Count 0 [facility] T-SPOT.TB Panel B Spot Count 0 [facility] T-SPOT.TB Negative Control Passed [facility] T-SPOT.TB Positive Control Passed [facility] Comment: Test Performed at: [employer] [facility], [employer] [address] [place] [phone] CUAUHTEMOC GALICIA,PHD Blood 06/20/2024 11:3 0 AM FIRE CONTROLMAN 06/20/2024 12:52 PM FIRE CONTROLMAN Malina Renteria NP LAB MICROBIOLOGY - GENERAL ORDERABLES Final Result Performing Organization Address City/[facility]/ZIP Co de Phone Number VINEET [facility] [place] [address] * eGFR (06/20/2024 11:30 AM FIRE CONTROLMAN) eGFR >90 >=60 mL/min/1. 73 m2 Comment: [...] reviewed 2021. Blood 06/20/2024 11:3 0 AM FIRE CONTROLMAN 06/20/2024 12:26 PM FIRE CONTROLMAN Malina Renteria NP LAB BLOOD ORDERABLES Final Result Performing Organization Address City/[facility]/ZIP Co de Phone Number [facility] [place] [address] * Differential, auto (06/20/2024 11:30 AM FIRE CONTROLMAN) Neutrophil abs 2.8 1.5 - 6.5 K/cumm Imm gran abs 0.0 0.0 - 0.1 K/cumm [facility] Lymphocyte abs 2.5 0.8 - 3.3 K/cumm [facility] Monocyte abs 0.7 0.2 - 0.8 K/cumm [facility] Eosinophil abs 0.2 0.0 - 0.5 K/cumm [facility] Basophil abs 0.1 0.0 - 0.1 K/cumm [facility] Neutrophil pct 45.1 % [facility] Comment: Interpretive Data Percent cell count reference ranges are not reported, since discordance with absolute values may lead to misinterpretation of CBC data. Current Interpretive Data was last revised on 2017. Imm gran pct 0.2 % [facility] Comment: Interpretive Data Percent cell count reference ranges are not reported, since discordance with absolute values may lead to misinterpretation of CBC data. Current Interpretive Data was last revised on 2017. Lymphocyte pct 40.4 % [facility] Comment: Interpretive Data Percent cell count reference ranges are not reported, since discordance with absolute values may lead to misinterpretation of CBC data. Current Interpretive Data was last revised on 2017. Monocyte pct 10.7 % [facility] Comment: Interpretive Data Percent cell count reference ranges are not reported, since discordance with absolute values may lead to misinterpretation of CBC data. Current Interpretive Data was last revised on 2017. Eosinophil pct 2.6 % [facility] Comment: Interpretive Data Percent cell count reference ranges are not reported, since discordance with absolute values may lead to misinterpretation of CBC data. Current Interpretive Data was last revised on 2017. Basophil pct 1.0 % [facility] Comment: Interpretive Data Percent cell count reference ranges are not reported, since discordance with absolute values may lead to misinterpretation of CBC data. Current Interpretive Data was last revised on 2017. Blood 06/20/2024 11:3 0 AM FIRE CONTROLMAN 06/20/2024 12:15 PM FIRE CONTROLMAN us Malina Renteria NP LAB BLOOD ORDERABLES Final Result V[facility]ET [facility] [place] [address] * CBC with auto differential (06/20/2024 11:30 AM FIRE CONTROLMAN) WBC 6.2 3.8 - 9.9 K/cumm Hgb 15.0 13.0 - 17.5 g/dL [facility] Hct 45.7 38.9 - 50.3 % [facility] Plt 270 150 - 400 K/cumm [facility] MPV 10.2 9.1 - 12.3 fL [facility] RBC 4.89 4.30 - 5.80 M/cumm [facility] MCV 93.5 81.3 - 96.4 fL [facility] MCH 30.7 27.1 - 33.3 pg [facility] MCHC 32.8 32.3 - 35.7 g/dL [facility] RDW CV 13.8 11.1 - 14.9 % [facility] RDW SD 47.5 35.7 - 48.1 fL [facility] NRBC abs 0.00 0.00 - 0.01 K/cumm [facility] Blood 06/20/2024 11:3 0 AM FIRE CONTROLMAN 06/20/2024 12:15 PM FIRE CONTROLMAN Malina Renteria STRESS ENGINEER LAB BLOOD ORDERABLES Final Result [facility] [place] [address] * Erythrocyte sedimentation rate (06/20/2024 11:30 AM FIRE CONTROLMAN) Pathologist [facility] Erythrocyte sedimentation rate 8 1 - 20 mm/hr Blood 06/20/2024 11:3 0 AM FIRE CONTROLMAN 06/20/2024 12:15 PM FIRE CONTROLMAN Malina Renteria STRESS ENGINEER LAB BLOOD ORDERABLES Final Result [facility] [place] [address] * CRP (acute phase) (06/20/2024 11:30 AM FIRE CONTROLMAN) Pathologist [facility] CRP 0.9 <=10.0 mg/L Blood 06/20/2024 11:3 0 AM FIRE CONTROLMAN 06/20/2024 12:15 PM FIRE CONTROLMAN us Malina Renteria NP LAB BLOOD ORDERABLES Final Result [facility] [place] [address] * Comprehensive metabolic panel (06/20/2024 11:30 AM FIRE CONTROLMAN) Sodium 141 135 - 145 mmol/L Potassium, pl 4.1 3.3 - 4.9 mmol/L [facility] Chloride 104 97 - 110 mmol/L [facility] CO2 28 22 - 32 mmol/L [facility] Anion gap 9 2 - 15 mmol/L [facility] BUN 14 6 - 25 mg/dL [facility] Creatinine 0.84 0.80 - 1.30 mg/dL [facility] Glucose 156 70 - 199 mg/dL [facility] Comment: Interpretive Data Fasting glucose >/= 126 [...] 2022. Calcium 9.3 8.5 - 10.3 mg/dL [facility] Bilirubin, total 0.6 0.1 - 1.2 mg/dL [facility] Protein, pl 7.8 6.5 - 8.5 g/dL [facility] Albumin 4.4 3.5 - 5.0 g/dL [facility] Alk phos 78 40 - 130 Units/L [facility] ALT 42 7 - 55 Units/L [facility] AST 35 10 - 50 Units/L [facility] Blood 06/20/2024 11:3 0 AM FIRE CONTROLMAN 06/20/2024 12:15 PM FIRE CONTROLMAN us Malina Renteria STRESS ENGINEER LAB BLOOD ORDERABLES Final Result VINEET [facility] [place] [address] * CT Abdomen Pelvis WO Contrast (10/17/2016 [...] Recently Relevant to Health Maintenance Insurance MEDICARE [facility] Address: [facility] [address] [place] [address] Academize MEDICARE [facility] MEDICARE [facility] Advance Directives For more information, please contact: [phone] Documents on File Type Date Recorded Patient Security Guard Dispatcher Expl anation ADVANCE DIRECTIVE 12/28/2011 12:00 AM [employer] PROFESSIONAL FINANCIAL/MEDICAL Care Teams Waiter/Waitress Bar Relationship Specialty Start Date End Date Bhargavi Tena MD [address] [place] [address] PCP - General Family Medicine 11/30/20 Lora Bajwa MD [address] [place] [address] Referring Physician Family Practice 11/20/18
--- OUTSIDE RECORDS SUMMARY | 2024-08-12 07:17 | XMS_ITS | Continuity of Care Document ---
Author Organization [facility] Address [address] [place] [address] Phone Care Team Providers Care Tripe Washer Name Role Phone Michael Johnson DO Unavailable Unavailable Advance Directives Directive Yes / No Effective Date File Name No Information Encounters Encounter Description Practice Location Reason(s) For Visit Diagnoses Date Provider Providers Copied on Encounter [facility], [address], [place], [place], [id number], [place] tel:[phone] [facility] No Information Alex Stein. [address] [facility], [place], [address], [place]. tel: [phone] Family History Family Member Type Diagnosis Age At Onset No Information Payers Payer name Insurance type Covered republican ID Authoriza tion(s) No Information Social History [...]
--- OUTSIDE RECORDS SUMMARY | 2024-08-12 07:17 | XMS_ITS | Encounter Summary ---
Author Organization [facility] Address [address] [place] [address] Phone Care Team Providers Care Software Quality Assurance Specialist Name Role Phone Lora Bajwa MD Unavailable [phone] Amanda Villa DO Primary Care Provider [phone] Bhargavi Tena MD Primary Care Provider Encounter Details Date Type Department Care Team (Late st Contact Info) Description 11/16/2020 Orders Only [facility] Scanning, Provider Social History Tobacco Use Types Packs/Day Years Used Date Smoking Tobacco: Former Cigarettes Q uit: 12/19/1993 Smokeless Tobacco: Never Sex and Gender Information Value Date Recorded Sex Assigned at Not on file Legal Sex Male 12:56 AM DIRECTOR OF SERVICES Gender Identity Male 02/26/2020 6:57 AM CDT Sexual Orientation Straight 02/26/2020 6: 57 AM CDT documented as of this encounter Plan of Treatment Not on file documented as of this encounter Procedures Procedure Name Priority Date/Time Associated Diagnosis Comments SCAN - LABS 11/16/2020 documented in this encounter Results * SCAN - LABS (11/16/2020) us Provider Scanning Final Result documented in this encounter Visit Diagnoses Not on filedocumented in this encounter Care Teams Software Quality Assurance Specialist Relationship Specialty Start Date End Date Amanda Villa DO [address] [place] [address] PCP - General 12/03/19 11/29/20 Bhargavi Tena MD [address] [facility] [address] [place] [address] PCP - General Family Medicine 11/30/20 Lora Bajwa MD [address] [place] [address] Referring Physician Family Practice 11/20/18 documented as of this encounter
--- OUTSIDE RECORDS SUMMARY | 2024-08-12 07:17 | XMS_ITS | Encounter Summary ---
Author Name [facility] [place] Organization [facility] Address [address] [place] [address] Care Team Providers Care Hook Tender Name Role Phone HUMA LIRIANO Primary Care [...] PART A May 18, 2020 PART A [id number] [facility] WALIEstella CRUZ JUSTICE PATIENT MEDICARE (WNR) MEDICARE (M) PART B May 18, 2020 PART B [id number] Estella CORNELL PATIENT -FO R-LIFE TRICA RE FOR LIFE WNR May 18, 2020 FOR LIFE [id number] [phone] WALIEstella CRUZ PATIENT Selected Encounter This section includes the information on record at [place] for the Encounter. 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 This section includes future appointments and future orders which are active, pending or scheduled. Future Appointments This section includes appointments that were scheduled to occur 6 months from the date of the Encounter, up to a maximum of 20 appointments. The data comes from all [place] treatment facilities. Appointment Date/Time Appointment Type Appointme nt Facility Name Nov 30, 2023 12:45 PM AMBULATORY - SURGERY [facility] Feb 20, 2024 08:30 AM AMBULATORY - MEDICINE [facility] Encounter Notes: All associated encounter notes This section contains the clinical notes associated to the Encounter. Date/Time Encounter Note(s) Provider Source October 31, 2023 09:34 AM AUDIOLOGY CLINIC LEAD NOTE: LOCAL TITLE: HEARING AIDS ST STANDARD TITLE: AUDIOLOGY CLINIC LEAD NOTE DATE OF NOTE: OCTOBER 31, 2023@09:34 ENTRY DATE: OCTOBER 31, 2023@09:34:33 AUTHOR: MISSY OJEDA EXP COSIGNER: URGENCY: STATUS: COMPLETED SUBJECT: audio HEARING AIDS ST Has ADDENDA HAC: Pt has the following hearing aids and is interested in new aids if possible. Recently, he has pain with left hearing aid if worn for prolonged time. 04/03/17 PHONAK PHONAK AUDEO B90-R ROMERO R [id number] 04/03/17 PHONAK PHONAK AUDEO B90-R ROMERO L [id number] Listening check was good. Wax filters replaced. Omega ports cleaned. Listening check still good. Datalogging indicated that since 10-19-20, right dgl=08955 hrs of use and since 08-22-22, left rcn=8922 hrs of use for daily average of 9.7 hrs and 9.1 hrs, respectively. Adjusted aids to today's audiogram. Feedback test completed and no feedback present even with exaggerated facial movts. Right aid is maxed out across entire freq range so no other adjustments can be made to right aid gain. Pt confirmed good sound quality and comfort. He reported better hearing than at the outset of the appt. Pt declined cochlear implant evaluation. He will fax med clearance on November 13. Hearing Aid Exam performed today: [] Monaural [x] Binaural Otoscopy reveals clear canals. Appropriate evaluation of patient leads to hearing aid order. Ear mold impression(s) taken with permission without incident. Hearing aid will be ordered and appointment requested for fitting. [] patient initiated visit [x] provider initiated visit [] new user [x]experienced user-Pt wore 04/03/17 PHONAK PHONAK AUDEO B90-R RICs Discussed aids with pt to include the following: STYLE: Showed pt various demo aids in clinic from canal through ROMERO style. Advised pt that due to degree of loss, he will need to transition to BTE with molds. Will plan to order SP BTE. BATTERY TYPE: Discussed rechargeable vs disposable batteries. Pt advised that he will need to go back to batteries due to model of aids selected and he was fine with this info. COLOR: Pt and chose beige to match skintone. CONNECTIVITY: Pt has iphone, but did not bring to appt today. He avoids using the phone bc speaker phone is not loud enough. Discussed that BT might help and he would like to try it. Advised to bring to HAF appt. PHONE FRANCY: declined MATRIX: Will order acrylic skeleton molds. Discussed poor WRS and ALD's to include TV streamer only or DANA for assistance with TV and listening environments. Pt confirmed he is fairly tech savvy and would like to try the DANA. confirmed willingness to wear DANA. Reminded pt this could be used as intro to tech and ALD's prior to cochlear implant and he was happy with this info. Disclaimer for hearing aid selection: The [place] [employer] does not support or endorse one private entity over another. After discussion, pt and clinician chose: PHONAK JAYSON L90-SP BTEs in beige with aids set to auto, VC, BT, no francy. DANA device ordered as well. rec: 1. HAF sched. Will need to verify receipt of medical clearance after November 13 or aids cannot be issued. Pt and understood. Provided fax number: . /shawn/ Dayana CORDERO Staff Director Inbound Sales, Surgery Service Signed: 10/31/2023 12:27 11/08/2023 ADDENDUM STATUS: COMPLETED Aids pre-programmed for fitting. /shawn/ Dayana GIBSON Graduate Director Inbound Sales, Surgery Service Signed: 11/08/2023 14:46 /shawn/ Dayana CORDERO Staff Director Inbound Sales, Surgery Service Cosigned: 11/08/2023 14:55 11/15/2023 ADDENDUM STATUS: COMPLETED Pt LMOM 11/14/2023 at 5:[address] Chapman's office will be faxing over his medical clearance. Pt confirmed he is not interested in cochlear implantation. As of now, medical clearance has not been received. /shawn/ Dayana Brandon, [facility] Staff Director Inbound Sales, Surgery Service Signed: 11/15/2023 08:14 11/19/2023 ADDENDUM STATUS: COMPLETED Medical clearance has NOT been received. Called pt to advise of such and he indicated he will f/u with Dr. Chapman's office. He confirmed he has fax number of [phone]. /shawn/ Dayana CORDERO Staff Director Inbound Sales, Surgery Service Signed: 11/19/2023 15:38 11/21/2023 ADDENDUM STATUS: COMPLETED Medical clearance received from Dr. Chapman's office dated 11-21-23. Called pt and left message on machine notifying him that it was received and reminded of 01-07-24 HAF appt. /shawn/ Dayana CORDERO Staff Director Inbound Sales, Surgery Service Signed: 11/21/2023 13:22 MISSY OJEDA [facility]
--- OUTSIDE RECORDS SUMMARY | 2024-08-12 07:17 | XMS_ITS | Encounter Summary ---
Author Organization [facility] Address [address] [place] [address] Phone Care Team Providers Care Flight Line Mechanic Name Role Phone Lora Bajwa MD Unavailable [phone] Amanda Villa DO Primary Care Provider [phone] Bhargavi Tena MD Primary Care Provider Encounter Details Date Type Department Care Team (Late st Contact Info) Description 08/27/2020 Orders Only [facility] Scanning, Provider Social History Tobacco Use Types Packs/Day Years Used Date Smoking Tobacco: Former Cigarettes Q uit: 12/19/1993 Smokeless Tobacco: Never Sex and Gender Information Value Date Recorded Sex Assigned at Not on file Legal Sex Male 12:56 AM RIBBON CUTTER Gender Identity Male 02/26/2020 6:57 AM CDT Sexual Orientation Straight 02/26/2020 6: 57 AM CDT documented as of this encounter Plan of Treatment Not on file documented as of this encounter Procedures Procedure Name Priority Date/Time Associated Diagnosis Comments SCAN - LABS 08/27/2020 documented in this encounter Results * SCAN - LABS (08/27/2020) us Provider Scanning Edited Result - Final documented in this encounter Visit Diagnoses Not on filedocumented in this encounter Care Teams Flight Line Mechanic Relationship Specialty Start Date End Date Amanda Villa DO [address] [place] [address] PCP - General 12/03/19 11/29/20 Bhargavi Tena MD [address] [facility] [address] [place] [address] PCP - General Family Medicine 11/30/20 Lora Bajwa MD [address] [place] [address] Referring Physician Family Practice 11/20/18 documented as of this encounter
[2024-08-12 07:47] LABS: Basophils Absolute Auto 0.1 K/mm3 (0.0-0.1); Basophils Percent Auto 0.9 % (0.2-1.2); Eosinophils Absolute Auto 0.2 K/mm3 (0-0.3); Eosinophils Percent Auto 2.3 % (0-4.4); Hematocrit 44.7 % (42.0-52.0); Immature Granulocyte Absolute 0.02 K/mm3 (0.00-0.031); Immature Granulocyte Percent A 0.3 % (0-0.5); Lymphocytes Absolute Auto 2.86 K/mm3 (0.9-3.2); Lymphocytes Percent Auto 41.2 % (18.3-44.2); Mean Corpuscular HGB Conc 33.6 g/dl (32-36); Mean Corpuscular Hemoglobin 31.6 pg (26-34); Mean Corpuscular Volume 94.3 fl (80-100); Mean Platelet Volume 9.6 fl (7.4-10.4); Monocytes Absolute Auto 0.8 K/mm3 (0.1-0.6); Monocytes Percent Auto 11.7 % (2.6-8.5); Neutrophils Percent Auto 43.6 % (45.5-73.1); Platelet Count Result 267 k/mm3 (150-375); Red Blood Count 4.74 M/mm3 (4.6-6.20); Red Cell Distribution Width 13.4 % (11.5-14.5); White Blood Count 6.9 K/mm3 (4.5-10.0)
[2024-08-12 07:59] LABS: Alanine Aminotransferase 25 U/L (6-50); Albumin Level 4.2 g/dL (3.5-5.1); Alkaline Phosphatase 74 U/L (38-126); Anion Gap 9 mmol/L (4-12); Aspartate Amino Transferase 27 U/L (17-59); Bilirubin,Total 0.8 mg/dL (0.2-1.3); Blood Urea Nitrogen 16 mg/dL (9-20); Calcium 8.9 mg/dL (8.4-10.2); Carbon Dioxide 25 mmol/L (22-30); Chloride 105 mmol/L (98-107); Cholesterol 126 mg/dL (0-200); Estimated Glomerular Filt Rate > 60; Glucose 164 mg/dL (65-110); HDL Direct 47 mg/dL; Potassium 4.2 mmol/L (3.4-5.0); Sodium 139 mmol/L (137-145); Triglycerides 123 mg/dL (<150)
[2024-08-12 08:11] LABS: LDL Cholesterol Direct 49 mg/dL
[2024-08-12 16:25] LABS: Hemoglobin A1C 6.7 % (<5.7)
== END 2024-08-12 07:08 | disposition home or self-care (01) ==
PROVIDERS: PCP Family Medicine; Visit Provider Student in an Organized Health Care Education/Training Program
DX: R73.03 Prediabetes (principal); I10 Essential (primary) hypertension; E78.5 Hyperlipidemia, unspecified
CPT/HCPCS: 36415; 80053; 80061; 83036; 85025

== ENCOUNTER 2024-09-04 10:14 | Outpatient (CLI) | payer MEDICARE, OTHER, SELFPAY ==
--- NOTE | ~2024-09-04 | US_ITS ---
EXAMINATION: US thyroid DATE: 09/04/2024 10:49 INDICATION: Nontoxic goiter TECHNIQUE: Multiple ultrasound images of the thyroid were obtained. COMPARISON: None. FINDINGS: The right thyroid lobe measures 4.2 x 2.1 x 1.8 cm. The left thyroid lobe measures 4.4 x 1.9 x 1.2 c m. The thyroid isthmus measures 4 mm in thickness. No discrete nodules identified. There is normal ec hotexture, echogenicity and vascular flow throughout the thyroid gland. IMPRESSION: 1. Normal thyroid ultrasound. Reviewed, dictated and finalized at location A.
== END 2024-09-04 10:15 | disposition home or self-care (01) ==
PROVIDERS: PCP Family Medicine; Visit Provider Physician Assistant
DX: E04.9 Nontoxic goiter, unspecified (principal)
CPT/HCPCS: 76536

== ENCOUNTER 2024-09-09 09:24 | Outpatient (CLI) | payer MEDICARE, OTHER, SELFPAY ==
--- NOTE | ~2024-09-09 | XR_ITS ---
XR abdomen/kub 1V Ordering provider: Asad Woody MD History: . calcium kidney stone . Comparison: None. FINDINGS: BOWEL: Nonobstructive bowel gas pattern. ORGANOMEGALY: None. SIGNIFICANT PATHOLOGIC CALCIFICATIONS: None. OTHER: No free air is seen under the diaphragm. 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 Left sacroiliitis. IMPRESSION: NO ACUTE ABDOMINAL FINDINGS. No definite stones seen. If still suspicious noncontrast CT is advised. Reviewed, dictated and finalized at location A.
--- OUTSIDE RECORDS SUMMARY | 2024-09-09 10:31 | XMS_ITS | Encounter Summary ---
Author Organization [facility] Address [address] [place] [address] Phone Care Team Providers Care Truck Hop Name Role Phone Lora Bajwa MD Unavailable [phone] Amanda Villa DO Primary Care Provider [phone] Bhargavi Tena MD Primary Care Provider Encounter Details Date Type Department Care Team (Late st Contact Info) Description 08/27/2020 Orders Only [facility] Scanning, Provider Social History Tobacco Use Types Packs/Day Years Used Date Smoking Tobacco: Former Cigarettes Q uit: 12/19/1993 Smokeless Tobacco: Never Sex and Gender Information Value Date Recorded Sex Assigned at Not on file Legal Sex Male 12:56 AM PACKAGER HAND Gender Identity Male 02/26/2020 6:57 AM CDT [...] on filedocumented in this encounter Care Teams Truck Hop Relationship Specialty Start Date End Date Amanda Villa DO [address] [place] [address] PCP - General 12/03/19 11/29/20 Bhargavi Tena MD [address] [facility] [address] [place] [address] PCP - General Family Medicine 11/30/20 Lora Bajwa MD [address] [place] [address] Referring Physician Family Practice 11/20/18 documented as of this encounter
--- OUTSIDE RECORDS SUMMARY | 2024-09-09 10:31 | XMS_ITS | Encounter Summary ---
Author Organization [facility] Address [address] [place] [address] Care Team Providers Care Banking Representative Name Role Phone Unavailable Primary Care Provider Unavailabl e Encounter Details Date Type Department Care Team (Late st Contact Info) Description 09/03/2024 Lab Requisition [facility] - DermPath Lab [address] [facility], [place] [id number] Johanna Wagner MD [address] [facility] 3 [place] [address] Social History Tobacco Use Types Packs/Day Years [...] Priority Date/Time Associated Diagnosis Comments DERMATOPATHOLOGY Routine 09/03/2024 3:06 PM CDT documented in this encounter Results * DERMATOPATHOLOGY (09/03/2024 3:06 PM CDT) Case Report Dermatopathology Report Case: [id number] Authorizing Provider: Johanna Wagner MD Collected: 09/03/2024 03:06 PM Ordering Location: [facility] - Received: 09/05/2024 08:55 AM DermPath Lab Pathologist: Anastasiia Alvarez MD Specimens: A) - Skin, right neck B) - Skin, right calf 1:18 PM T DERMATOPATHOLOGY LABORATORY Final Diagnosis Specimen A. SKIN, right neck: BASAL CELL CARCINOMA, NODULAR TYPE (C44.41) Specimen B. SKIN, right calf: BASAL CELL CARCINOMA, SUPERFICIAL MULTIFOCAL (C44.712) 1:18 PM T DERMATOPATHOLOGY LABORATORY Clinical History A: R/O BCC B: R/O SCC 1:18 PM CDT DERMATOPATHOLOGY LABORATORY Gross Description Specimen A: Received is one formalin filled container labeled with the patient's name and designated right neck. The specimen consists of a shave biopsy measuring 8x6x1 mm. Jar 0. Specimen B: Received is one formalin filled container labeled with the patient's name and designated right calf. The specimen consists of a shave biopsy measuring 7x5x1 mm. Jar 0. 1:18 PM CDT DERMATOPATHOLOGY LABORATORY Microscopic Description Specimen A. SKIN, right neck: Within the dermis there are aggregates of basaloid cells with a high nuclear to cytoplasmic ratio and peripheral palisading. Specimen B. SKIN, right calf: Attached to the undersurface of the epidermis, there are small aggregates of basaloid cells with a high nuclear to cytoplasmic ratio and peripheral palisading. 1:18 PM CDT DERMATOPATHOLOGY LABORATORY Disclaimer An external and internal positive and negative controls are appropriate for the histochemical, immunohistochemical and immunofluorescence stain(s) in this case (if any), except where stated explicitly. The performance characteristics of the stain(s) cited in this report were developed and its performance characteristic determined by the Dermatopathology Laboratory at [facility], directed by Dr. Sandi Hubbard. These tests need not be, and therefore are not, approved by the [place] Food and Drug Administration. The tests are used for clinical purposes. Billing Codes Specimen Charges Stain Charges 17102 00371 1 1 1:18 PM CDT DERMATOPATHOLOGY LABORATORY Embedded Images 1:18 PM T DERMATOPATHOLOGY LABORATORY Pathology/Cytology TISSUE SPECIMEN FROM SKIN / Unknown 09/03/2024 3:06 PM CDT 09/05/2024 8:55 AM CDT Miscellaneous samples (specimen) TISSUE SPECIMEN FROM SKIN / Unknown 09/03/2024 3:06 PM CDT 09/05/2024 8:55 AM CDT Johanna Wagner MD LAB - PATHOLOGY/CYTO LOGY ORDERABLES DERMATOPATHOLOGY LABORATORY [facility] - Department of Dermatology [facility] [address] [place] [address], [address] [phone] documented in this encounter Visit Diagnoses Not on filedocumented in this encounter
--- OUTSIDE RECORDS SUMMARY | 2024-09-09 10:31 | XMS_ITS | Encounter Summary ---
Author Organization [facility] Address [address] [place] [address] Phone Care Team Providers Care Statistician Theoretical Name Role Phone Mk Lewis MD Primary Care Provider [phone] Lora Bajwa MD Primary Care Provider Lora Bajwa MD Unavailable [phone] Amanda Villa DO Primary Care Provider [phone] Bhargavi Tena MD Primary Care Provider Encounter Details Date Type Department Care Team (Late st Contact Info) Description 11/25/2015 Orders Only [facility] Scanning, Provider Social History Tobacco Use Types Packs/Day Years Used Date Smoking Tobacco: Never Assessed Sex and Gender Information Value Date Recorded Sex Assigned at Not on file Legal Sex Male 12:56 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 [address] [place], [place] [id number] PCP - General Family Medicine 11/30/20 Lora Bajwa MD [address] [facility], [place] [address] Referring Physician Family Practice 11/20/18 documented as of this encounter
--- OUTSIDE RECORDS SUMMARY | 2024-09-09 10:31 | XMS_ITS | Clinical Summary ---
Author Organization [facility] Address [address] [place] [address] Care Team Providers Care Pulp Grinder Feeder Name Role Phone Lora Bajwa MD Unavailable [phone] Bhargavi Tena MD Primary Care Provider Allergies No known active allergies Medications aspirin 81 mg tablet Take 1 tablet (81 mg total) by mouth daily 8 Active econazole 1 % cream APPLY TO FEET TWICE DAILY 1 Active cloNIDine (CATAPRES) 0.1 mg tablet 1 tablet (0.1 mg total) 2 (two) times a day 2 Active GOLIMUMAB IVIndications: Rheumatoid Arthritis ions golimumab (SIMPONI ARIA) 200 mg [...] daily as needed for erectile dysfunction Active irbesartan-hyd roCHLOROthiazi de (AVALIDE) 300-12.5 mg per tablet Take 1 tablet by mouth daily 4 Active amLODIPine (NORVASC) 5 mg tablet Take 1 tablet (5 mg total) by mouth nightly at bedtime 4 Active methotrexate 2.5 mg tabletIndicati ons:Rheumatoid Arthritis Take 10 tablets (25 mg total) by mouth once a week 120 tablet 1 5 Active hydroxychloroq uine (PLAQUENIL) 200 mg tabletIndicati ons:Rheumatoid Arthritis Take 1 tablet (200 mg total) by mouth 2 (two) times a day 180 tablet 3 5 Active folic acid (FOLVITE) 1 mg tablet Take 1 tablet (1 mg total) by mouth daily 90 tablet 3 5 Active folic acid (FOLVITE) 1 mg tablet Take 1 tablet (1 mg total) by mouth daily 90 tablet 1 4 08/21/19 25 Discontin ued(Reord er) hydroxychloroq uine (PLAQUENIL) 200 mg tabletIndicati ons:Rheumatoid Arthritis Take 1 tablet (200 mg total) by mouth 2 (two) times a day 180 tablet 1 4 08/21/19 25 Discontin ued(Reord er) methotrexate 2.5 mg tabletIndicati ons:Rheumatoid Arthritis Take 10 tablets (25 mg total) by mouth once a week 120 tablet 1 4 08/21/19 25 Discontin ued(Reord er) Active Problems Problem Noted Date Diagnosed Date [...] FOR AGE AND GENDER. [facility] [facility] with negative rheumatoid factor 03/05/2018 High risk medication use 03/05/2018 Obesity with body mass index 30 or greater 06/06 Joint stiffness 06/06/2017 Arthritis 09/02/2015 Swelling of hand 09/01/2015 Lumbago 09/01/2015 Joint pain 09/01/2015 Encounters Date Type Department Care Team Description 08/20/2024 10:20 AM MAIL PROCESSING MACHINE OPERATOR Office Visit [facility] Rheumatology [address] [facility] 2nd Floor [address] [place] [address] Malina Renteria, ASSISTANT PASTRY CHEF Rheumatoid arthritis of 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 (HCC) (Primary Dx); High risk medication use 08/20/2024 9:30 AM MAIL PROCESSING MACHINE OPERATOR Infusion [facility] Infusion Therapy [address] [facility] 2nd Floor [address] [place] [address] Rheumatoid arthritis of 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 (HCC) (Primary Dx) 07/04/2024 Documentation [facility] Rheumatology [address] [facility] 2nd Floor [address] [place] [address] Chandana Maurice Eye Exam (05-01-24 Quantum ok for plaquenil) 06/20/2024 9:30 AM MAIL PROCESSING MACHINE OPERATOR Infusion [facility] Infusion Therapy [address] [facility] 2nd Floor [address] [place] [address] Rheumatoid arthritis of 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 (HCC) (Primary Dx) 06/20/2024 9:18 AM MAIL PROCESSING MACHINE OPERATOR - 06/20/2024 11:59 PM MAIL PROCESSING MACHINE OPERATOR Hospital Encounter [facility] [address] [place] [address] Rheumatoid arthritis of 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 (HCC); High risk medication use Discharge Disposition: [...] organs History of sciatica - (Added by Conv) Personal history of other en docrine, nutritional and metabolic disease History of hyperlipi demia - (Added by ) Enlarged prostate without lo wer urinary tract symptoms (luts) BPH (benign prostatic hy perplasia) - (Added by Conv) History of diabetes mellitus , type [...] history of diabetes mellitus - (Added by ) Heart disease Father Lincoln Fleming Sr F amily history of cardiac disorder - (Added by ) Hypertension Father Lincoln Fleming Sr Fa yvette history of hypertension - (Added by ) Lung cancer Father Lincoln Fleming Sr Fa yvette history of lung cancer - (Added by ) Relation Name Status Comments Father Lincoln Fleming Sr Social History Tobacco Use Types Packs/Day Years Used Date Smoking Tobacco: Former Cigarettes Q uit: 12/19/1993 Passive Smoke Exposure: Past Smokeless Tobacco: Never Tobacco Cessation:Counseling Given: Not Answered Sex and Gender Information Value Date Recorded Sex Assigned at Not on file Legal Sex Male 12:56 AM MAIL PROCESSING MACHINE OPERATOR Gender Identity Male 02/26/2020 6:57 AM CDT Sexual Orientation Straight 02/26/2020 6: 57 AM CDT Obstetrics History Last Filed Vital Signs Vital Sign Reading Time Taken Comments Blood Pressure 143/90 08/20/2024 9:59 AM MAIL PROCESSING MACHINE OPERATOR Pulse 72 08/20/2024 9:59 AM MAIL PROCESSING MACHINE OPERATOR Temperature 36.3 C (97.4 F) 08/20/2024 9:59 AM MAIL PROCESSING MACHINE OPERATOR Respiratory Rate - - Oxygen Saturation 97% 08/20/2024 9:59 AM MAIL PROCESSING MACHINE OPERATOR Inhaled Oxygen Concentration - - Weight 126.5 kg (278 lb 12.8 oz) 08/20/2024 9:59 AM MAIL PROCESSING MACHINE OPERATOR Height 182.9 cm (6') 08/20/2024 9:59 AM MAIL PROCESSING MACHINE OPERATOR Body Mass Index 37.81 08/20/2024 9:59 AM MAIL PROCESSING MACHINE OPERATOR Plan of Treatment Health Maintenance Due [...] 05/18/2020, 03/18/2015, 03/15/2015 Influenza Vaccine (#1) 2024 , 01/17/2023, 02/19/2020, Additional history exists eGFR 06/20/2025 06/20/2024, 02/16, 11/06/2023, Additional history exists DTaP/Tdap/Td Vaccine (4 - Td or Tdap) 02/19/2034 02/20/2024, 08/28/2013, 03/17/2011 Zoster Vaccine Completed 10/03/2022, 04/19, 01/10/2017, Additional history exists Procedures Procedure Name Priority Date/Time Associated Diagnosis Comments EGFR Routine 06/20/2024 11:30 AM MAIL PROCESSING MACHINE OPERATOR High risk medication use DIFFERENTIAL AUTO Routine 06/20/2024 11: 30 AM MAIL PROCESSING MACHINE OPERATOR High risk medication use CBC WITH AUTO DIFFERENTIAL Routine 06/20/2024 11:30 AM MAIL PROCESSING MACHINE OPERATOR High risk medication use COMPREHENSIVE METABOLIC PANEL Routine 06/20/2024 11:30 AM MAIL PROCESSING MACHINE OPERATOR High risk medication use ERYTHROCYTE SEDIMENTATION RATE Routine 06/20/2024 11:30 AM MAIL PROCESSING MACHINE OPERATOR Rheumatoid arthritis of 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 (HCC) CRP (ACUTE PHASE) Routine 06/20/2024 11: 30 AM MAIL PROCESSING MACHINE OPERATOR Rheumatoid arthritis of 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 (HCC) T-SPOT.TB Routine 06/20/2024 11:30 AM MAIL PROCESSING MACHINE OPERATOR High risk medication use CT ABDOMEN PELVIS WO CONTRAST Routine 10/17/2016 6:59 AM CDT from Last 3 Months or Most Recently Relevant to Health Maintenance Results * T-SPOT.TB Blood (06/20/2024 11:30 AM MAIL PROCESSING MACHINE OPERATOR) [facility] T-SPOT.TB Negative SeeBelow Comment: Normal Value: Negative [...] test. T-SPOT.TB Panel A Spot Count 0 [facility] T-SPOT.TB Panel B Spot Count 0 [facility] T-SPOT.TB Negative Control Passed [facility] T-SPOT.TB Positive Control Passed [facility] Comment: Test Performed at: [facility], [employer] [address] [place] [id number] CUAUHTEMOC GALICIA,PHD Blood 06/20/2024 11:3 0 AM MAIL PROCESSING MACHINE OPERATOR 06/20/2024 12:52 PM MAIL PROCESSING MACHINE OPERATOR us Malina Renteria NP LAB MICROBIOLOGY - GENERAL ORDERABLES Final Result [facility] Department [place] [address] * eGFR (06/20/2024 11:30 AM MAIL PROCESSING MACHINE OPERATOR) Pathologist [facility] eGFR >90 >=60 mL/min/1. 73 m2 Comment: [...] reviewed 2021. Blood 06/20/2024 11:3 0 AM MAIL PROCESSING MACHINE OPERATOR 06/20/2024 12:26 PM MAIL PROCESSING MACHINE OPERATOR us Malina Renteria NP LAB BLOOD ORDERABLES Final Result [facility] [place] [address] * Differential, auto (06/20/2024 11:30 AM MAIL PROCESSING MACHINE OPERATOR) [facility] Neutrophil abs 2.8 1.5 - 6.5 K/cumm Imm gran abs 0.0 0.0 - 0.1 K/cumm [facility] Lymphocyte abs 2.5 0.8 - 3.3 K/cumm [facility] Monocyte abs 0.7 0.2 - 0.8 K/cumm [facility] Eosinophil abs 0.2 0.0 - 0.5 K/cumm [facility] Basophil abs 0.1 0.0 - 0.1 K/cumm [facility] Neutrophil pct 45.1 % [facility] Comment: Interpretive Data Percent cell count reference ranges are not reported, since discordance with absolute values may lead to misinterpretation of CBC data. Current Interpretive Data was last revised on 2017. Imm gran pct 0.2 % [facility] Comment: Interpretive Data Percent cell count reference ranges are not reported, since discordance with absolute values may lead to misinterpretation of CBC data. Current Interpretive Data was last revised on 2017. Lymphocyte pct 40.4 % [facility] Comment: Interpretive Data Percent cell count reference ranges are not reported, since discordance with absolute values may lead to misinterpretation of CBC data. Current Interpretive Data was last revised on 2017. Monocyte pct 10.7 % [facility] Comment: Interpretive Data Percent cell count reference ranges are not reported, since discordance with absolute values may lead to misinterpretation of CBC data. Current Interpretive Data was last revised on 2017. Eosinophil pct 2.6 % [facility] Comment: Interpretive Data Percent cell count reference ranges are not reported, since discordance with absolute values may lead to misinterpretation of CBC data. Current Interpretive Data was last revised on 2017. Basophil pct 1.0 % [facility] Comment: Interpretive Data Percent cell count reference ranges are not reported, since discordance with absolute values may lead to misinterpretation of CBC data. Current Interpretive Data was last revised on 2017. Blood 06/20/2024 11:3 0 AM MAIL PROCESSING MACHINE OPERATOR 06/20/2024 12:15 PM MAIL PROCESSING MACHINE OPERATOR us Malina Renteria ASSISTANT PASTRY CHEF LAB BLOOD ORDERABLES Final Result [facility] Department of Laboratories [place], [place] [id number] * CBC with auto differential (06/20/2024 11:30 AM MAIL PROCESSING MACHINE OPERATOR) WBC 6.2 3.8 - 9.9 K/cumm Hgb 15.0 13.0 - 17.5 g/dL [facility] Hct 45.7 38.9 - 50.3 % [facility] Plt 270 150 - 400 K/cumm [facility] MPV 10.2 9.1 - 12.3 fL [facility] RBC 4.89 4.30 - 5.80 M/cumm [facility] MCV 93.5 81.3 - 96.4 fL [facility] MCH 30.7 27.1 - 33.3 pg [facility] MCHC 32.8 32.3 - 35.7 g/dL [facility] RDW CV 13.8 11.1 - 14.9 % [facility] RDW SD 47.5 35.7 - 48.1 fL [facility] NRBC abs 0.00 0.00 - 0.01 K/cumm [facility] Blood 06/20/2024 11:3 0 AM MAIL PROCESSING MACHINE OPERATOR 06/20/2024 12:15 PM MAIL PROCESSING MACHINE OPERATOR us Malina Renteria ASSISTANT PASTRY CHEF LAB BLOOD ORDERABLES Final Result Performing Organization Address [facility] [employer] de Phone Number [facility] [place] [address] * Erythrocyte sedimentation rate (06/20/2024 11:30 AM MAIL PROCESSING MACHINE OPERATOR) Erythrocyte sedimentation rate 8 1 - 20 mm/hr Blood 06/20/2024 11:3 0 AM MAIL PROCESSING MACHINE OPERATOR 06/20/2024 12:15 PM MAIL PROCESSING MACHINE OPERATOR us Malina Renteria ASSISTANT PASTRY CHEF LAB BLOOD ORDERABLES Final Result Performing Organization Address City/[facility] [employer] de Phone Number [facility] [place] [address] * CRP (acute phase) (06/20/2024 11:30 AM MAIL PROCESSING MACHINE OPERATOR) CRP 0.9 <=10.0 mg/L Blood 06/20/2024 11:3 0 AM MAIL PROCESSING MACHINE OPERATOR 06/20/2024 12:15 PM MAIL PROCESSING MACHINE OPERATOR Malina Renteria ASSISTANT PASTRY CHEF LAB BLOOD ORDERABLES Final Result Performing Organization Address City/[facility] [employer] de Phone Number [facility] [place] [address] * Comprehensive metabolic panel (06/20/2024 11:30 AM MAIL PROCESSING MACHINE OPERATOR) Sodium 141 135 - 145 mmol/L Potassium, pl 4.1 3.3 - 4.9 mmol/L [facility] Chloride 104 97 - 110 mmol/L [facility] CO2 28 22 - 32 mmol/L [facility] Anion gap 9 2 - 15 mmol/L [facility] BUN 14 6 - 25 mg/dL [facility] Creatinine 0.84 0.80 - 1.30 mg/dL [facility] Glucose 156 70 - 199 mg/dL [facility] Comment: Interpretive Data Fasting glucose >/= [...] classification and Diagnosis of Diabetes Diabetes Care 202; 46: S19-S40. Current interpretive data was last revised 2022. Calcium 9.3 8.5 - 10.3 mg/dL [facility] Bilirubin, total 0.6 0.1 - 1.2 mg/dL [facility] Protein, pl 7.8 6.5 - 8.5 g/dL [facility] Albumin 4.4 3.5 - 5.0 g/dL [facility] Alk phos 78 40 - 130 Units/L [facility] ALT 42 7 - 55 Units/L [facility] AST 35 10 - 50 Units/L [facility] Blood 06/20/2024 11:3 0 AM MAIL PROCESSING MACHINE OPERATOR 06/20/2024 12:15 PM MAIL PROCESSING MACHINE OPERATOR us Malina Renteria ASSISTANT PASTRY CHEF LAB BLOOD ORDERABLES Final Result Performing Organization Address [facility]/ZIP Co de Phone Number [facility] [place] [address] * CT Abdomen Pelvis WO Contrast (10/17/2016 [...] Recently Relevant to Health Maintenance Insurance MEDICARE [employer] MEDICARE [facility] MEDICARE [facility] Advance Directives For more information, please contact: [phone] Documents on File Type Date Recorded 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
--- OUTSIDE RECORDS SUMMARY | 2024-09-09 10:31 | XMS_ITS | Encounter Summary ---
Author Organization [facility] Address [address] [place] [address] Phone Care Team Providers Care Research Spec Name Role Phone Lora Bajwa MD Unavailable [phone] Amanda Villa DO Primary Care Provider [phone] Bhargavi Tena MD Primary Care Provider Encounter Details Date Type Department Care Team (Late st Contact Info) Description 11/16/2020 Orders Only [facility] Scanning, Provider Social History Tobacco Use Types Packs/Day Years Used Date Smoking Tobacco: Former Cigarettes Q uit: 12/19/1993 Smokeless Tobacco: Never Sex and Gender Information Value Date Recorded Sex Assigned at Not on file Legal Sex Male 12:56 AM DRESS OPERATOR Gender Identity Male 02/26/2020 6:57 AM [...] on filedocumented in this encounter Care Teams Research Spec Relationship Specialty Start Date End Date Amanda Villa DO [address] [place] [address] PCP - General 12/03/19 11/29/20 Bhargavi Tena MD [address] [facility] [address] [place] [address] PCP - General Family Medicine 11/30/20 Lora Bajwa MD [address] [place] [address] Referring Physician Family Practice 11/20/18 documented as of this encounter
--- OUTSIDE RECORDS SUMMARY | 2024-09-09 10:31 | XMS_ITS | Encounter Summary ---
Author Organization [facility] Address [address] [facility] [place] [address] Care Team Providers Care Custom Miller Name Role Phone Unavailable Primary Care Provider Unavailabl e Encounter Details Date Type Department Care Team (Late st Contact Info) Description 02/14/2018 Lab Requisition [facility] Care DermPath Lab [address] [facility], [place] [address] Gwen Gutiérrez MD [address] [facility] 3 [place] [address] Social History Tobacco Use Types Packs/Day Years [...] AM CDT) Case Report Dermatopathology Report Case: [id number] Authorizing Provider: Gwen Gutiérrez MD Collected: 02/12/2018 [...] consists of a shave (2 pieces) measuring [id number] & 5x5s7ze. The margins are inked green. Jar 0. [facility] performed the technical component [...] characteristic determined by the Dermatopathology Laboratory at [facility]. These tests need not be, and therefore are not, approved by the [place] Food and Drug Administration. The tests are used for clinical purposes. 1:19 PM [facility] DERMATOPATHOLOGY LABORATORY Pathology/Cytolog y TISSUE SPECIMEN FROM SKIN / Unknown 02/12/2018 02/14/2018 6:14 AM CDT Gwen Gutiérrez MD LAB - PATHOLOGY/CYT OLOGY ORDERABLES DERMATOPATHOLOGY LABORATORY [facility] - Department of Dermatology [address] [place] [address], [address] [place] [address], [facility] [phone] documented in this encounter Visit Diagnoses Not on filedocumented in this encounter
--- OUTSIDE RECORDS SUMMARY | 2024-09-09 10:31 | XMS_ITS | Encounter Summary ---
Author Organization [facility] Address [address] [facility] [place] [address] Care Team Providers Care Hog Buyer Name Role Phone Unavailable Primary Care Provider Unavailabl e Encounter Details Date Type Department Care Team (Late st Contact Info) Description 08/29/2023 Lab Requisition [facility] - DermPath Lab [address] [facility], [place] [address] Johanna Wagner MD [address] [facility] 3 [place] [address] Social History Tobacco Use Types Packs/Day Years [...] AM CDT) Case Report Dermatopathology Report Case: [id number] Authorizing Provider: Johanna Wagner MD Collected: 08/29/2023 08:34 AM Ordering Location: [facility] - Received: 08/30/2023 10:49 AM DermPath Lab Pathologist: Lauren Roberts MD Specimens: A) - Skin, left neck B) - Skin, left forehead 3:[address] [facility] DERMATOPATHOLOGY LABORATORY Final Diagnosis Specimen A. SKIN, left neck: ACTINIC KERATOSIS, INFLAMED (L57.0) Specimen B. SKIN, left forehead: GRANULOMATOUS DERMATITIS CONSISTENT WITH A RUPTURED CYST OR HAIR FOLLICLE (L72.0) 3:[address] [facility] DERMATOPATHOLOGY LABORATORY Clinical History A-B: r/o BCC 3:[address] [facility] DERMATOPATHOLOGY LABORATORY Gross Description Specimen A: Received [...] measuring 5x5x1 mm. Jar 0. 3:[address] [facility] DERMATOPATHOLOGY LABORATORY Microscopic Description Specimen A. SKIN, left neck: There is hyperkeratosis, parakeratosis, papillomatosis, and acanthosis of the epidermis. There is a lymphohistiocytic infiltrate within the papillary dermis that is focally lichenoid. Specimen B. SKIN, left forehead: Neutrophils, histiocytes, and multinucleated giant cells are present within the dermis. 3:[address] [facility] DERMATOPATHOLOGY LABORATORY Disclaimer An external and internal positive and negative controls are appropriate for the histochemical, immunohistochemical and immunofluorescence stain(s) in this case (if any), except where stated explicitly. The performance characteristics of the stain(s) cited in this report were developed and its performance characteristic determined by the Dermatopathology Laboratory at [facility], directed by Dr. Sandi Hubbard. These tests need not be, and therefore are not, approved by the [place] Food and Drug Administration. The tests are used for clinical purposes. Billing Codes Specimen Charges Stain Charges 45267 46419 1 1 4 3:33 PM T DERMATOPATHOLOGY LABORATORY Embedded Images 3:33 PM T DERMATOPATHOLOGY LABORATORY Pathology/Cytology TISSUE SPECIMEN FROM SKIN / Unknown 08/29/2023 8:34 AM CDT 08/30/2023 10:49 AM CDT Miscellaneous samples (specimen) TISSUE SPECIMEN FROM SKIN / Unknown 08/29/2023 8:34 AM CDT 08/30/2023 10:49 AM CDT Johanna Wagner MD LAB - PATHOLOGY/CYTO LOGY ORDERABLES DERMATOPATHOLOGY LABORATORY [facility] - Department of Dermatology [facility] Special[facility] Medicine [address] [place] [address], [address] [phone] documented in this encounter Visit Diagnoses Not on filedocumented in this encounter
--- OUTSIDE RECORDS SUMMARY | 2024-09-09 10:31 | XMS_ITS | Clinical Summary ---
Author Organization [facility] Address [address] [facility] [place] [address] Care Team Providers Care Chemical Dependency Nurse Name Role Phone Unavailable Primary Care Provider Unavailabl e Source Comments [facility],non-owned Affiliates and Associated Physician Practices is amultiple site organization consisting of ambulatory clinics and hospital sitesin [place], [place], [place] and [place]. This disclosure is being madepursuant to the Care Everywhere program and may not contain all information available regarding this patient. Last updated 18.[facility] Allergies No known active allergies Medications * [...] mg by mouth 2 times daily. Active Encounters Date Type Department Care Team Description 09/03/2024 Lab Requisition [facility] - DermPath Lab [address] [facility], [place] [address] Johanna Wagner MD from Last 3 Months Social History Tobacco Use Types Packs/Day Years [...] Comments Blood Pressure 139/83 05/22/2013 12:57 PM CRIMINAL PSYCHOLOGIST Pulse 75 05/22/2013 12:57 PM CRIMINAL PSYCHOLOGIST Temperature 36.9 C (98.4 F) 05/22/2013 12:57 PM CRIMINAL PSYCHOLOGIST Respiratory Rate 16 05/22/2013 12:57 PM CRIMINAL PSYCHOLOGIST Oxygen Saturation 96% 05/22/2013 12:57 PM CRIMINAL PSYCHOLOGIST Inhaled Oxygen Concentration - - Weight 116.1 kg (256 lb) 05/22/2013 8:02 AM CRIMINAL PSYCHOLOGIST Height 182.9 cm (6') 05/22/2013 8:02 AM CRIMINAL PSYCHOLOGIST Body Mass Index 34.72 05/22/2013 8:02 AM CRIMINAL PSYCHOLOGIST Plan of Treatment Health Maintenance Due Date [...] to complete this topic MENINGOCOCCAL (Group B) VACC INE SHARED DECISION-MAKING Aged Out No longer eligibl e based on patient's age to complete this topic MENINGOCOCCAL GROUPS A/C/Y/W VACCINE Aged Out No longer eligible b ased on patient's age to complete this topic Procedures Procedure Name Priority Date/Time Associated Diagnosis Comments DERMATOPATHOLOGY Routine 09/03/2024 3:06 PM CDT from Last 3 Months Results * DERMATOPATHOLOGY (09/03/2024 3:06 PM CDT) Case Report Dermatopathology Report Case: [id number] Authorizing Provider: Johanna Wagner MD Collected: 09/03/2024 03:06 PM Ordering Location: [facility] - Received: 09/05/2024 08:55 AM DermPath Lab Pathologist: Ansatasiia Alvarez MD Specimens: A) - Skin, right neck B) - Skin, right calf 1:18 PM CDT DERMATOPATHOLOGY LABORATORY Final Diagnosis Specimen A. SKIN, right neck: BASAL CELL CARCINOMA, NODULAR TYPE (C44.41) Specimen B. SKIN, right calf: BASAL CELL CARCINOMA, SUPERFICIAL MULTIFOCAL (C44.712) 1:18 PM CDT DERMATOPATHOLOGY LABORATORY Clinical History A: R/O BCC [...] characteristic determined by the Dermatopathology Laboratory at [facility], directed by Dr. Sandi Hubbard. These tests need not be, and therefore are not, approved by the [place] Food and Drug Administration. The tests are used for clinical purposes. Billing Codes Specimen Charges Stain Charges 47363 15451 1 1 5 1:18 PM CDT DERMATOPATHOLOGY LABORATORY Embedded Images 1:18 PM CDT DERMATOPATHOLOGY LABORATORY Pathology/Cytology TISSUE SPECIMEN FROM SKIN / Unknown 09/03/2024 3:06 PM CDT 09/05/2024 8:55 AM CDT Miscellaneous samples (specimen) TISSUE SPECIMEN FROM SKIN / Unknown 09/03/2024 3:06 PM CDT 09/05/2024 8:55 AM CDT Johanna Wagner MD LAB - PATHOLOGY/CYTO LOGY ORDERABLES DERMATOPATHOLOGY LABORATORY [facility] - Department of Dermatology [facility] Medicine [address] [place] [address], [address] [phone] from Last 3 Months Elfego Fleming Personal/Family Self 1955 [address] [facility] [place] [address]
--- OUTSIDE RECORDS SUMMARY | 2024-09-09 10:31 | XMS_ITS | Clinical Summary ---
Author Organization [facility] Address [facility] [place] [address] Care Team Providers Care Mobile Crane Operator Name Role Phone Bhargavi Tena MD Primary Care Provider [phone] Social History Tobacco Use Types Packs/Day Years [...] patient's age to complete this topic Insurance [facility] MEDICARE Care Teams Mobile Crane Operator Relationship Specialty Start Date End Date Bhargavi Tena MD [address] [facility] [address] [place] [address] PCP - General FAMILY PRACTICE 09/20/23
--- OUTSIDE RECORDS SUMMARY | 2024-09-09 10:31 | XMS_ITS | Encounter Summary ---
Author Organization [facility] Address [address] [place] [address] Phone Care Team Providers Care Mine Safety Engineer Name Role Phone Lora Bajwa MD Unavailable + [phone] Bhargavi Tena MD Primary Care Provider Encounter Details Date Type Department Care Team (Late st Contact Info) Description 08/16/2021 Orders Only [facility] Scanning, Provider Social History Tobacco Use Types Packs/Day Years Used Date Smoking Tobacco: Former Cigarettes Q uit: 12/19/1993 Smokeless Tobacco: Never Sex and Gender Information Value Date Recorded Sex Assigned at Not on file 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
--- OUTSIDE RECORDS SUMMARY | 2024-09-09 10:31 | XMS_ITS | Encounter Summary ---
Author Organization [facility] Address [address] [place] [address] Care Team Providers Care Feed Weigher Name Role Phone Unavailable Primary Care Provider Unavailabl e Encounter Details Date Type Department Care Team (Late st Contact Info) Description 08/04/2019 Lab Requisition [facility] DermPath Lab [address] [facility], [place] [address] Gwen Gutiérrez MD [address] [facility] 3 [place] [address] Social History Tobacco Use Types Packs/Day Years [...] Comments DERMATOPATHOLOGY Routine 08/01/2019 12:0 0 AM CARBON BRUSH MAKER documented in this encounter Results * DERMATOPATHOLOGY (08/01/2019 12:00 AM CARBON BRUSH MAKER) Case Report Dermatopathology Report Case: [id number] Authorizing Provider: Gwen Gutiérrez MD Collected: 08/01/2019 12:00 AM Ordering Location: [facility] DermPath Lab Received: 08/04/2019 07:48 AM Pathologist: Vincent Hubbard MD Specimen: Skin, right sup chest 0 1:20 PM CARB[employer] BRUSH [facility]KER DERMATOPATHOLOGY LABORATORY Final Diagnosis Specimen A. SKIN, right sup chest: SEBORRHEIC KERATOSIS, IRRITATED (L82.0) 0 1:20 PM [facility]USH [facility]ER DERMATOPATHOLOGY LABORATORY Clinical History MM vs SK. Irreg color. 0 1:20 PM CARBON BRUSH MAKER DERMATOPATHOLOGY LABORATORY Gross Description Specimen A: Received is one formalin filled container labeled with the patient's name and designated right sup chest. The specimen consists of a shave measuring 93p2t0vr. Jar 0. 0 1:20 PM [facility] [facility] DERMATOPATHOLOGY LABORATORY Microscopic Description Specimen A. SKIN, right sup chest: There is acanthosis consisting of fairly uniform squamous cells with eosinophilic cytoplasm and squamous eddies. 0 1:20 PM [facility] [facility] DERMATOPATHOLOGY LABORATORY Disclaimer An external and internal positive and negative controls are appropriate for the histochemical, immunohistochemical and immunofluorescence stain(s) in this case (if any), except where stated explicitly. The performance characteristics of the stain(s) cited in this report were developed and its performance characteristic determined by the Dermatopathology Laboratory at [facility], directed by Dr. Sandi Hubbard. These tests need not be, and therefore are not, approved by the [place] Food and Drug Administration. The tests are used for clinical purposes. Billing Codes Specimen Charges Stain Charges 71286 1 0 1:20 PM CARBON BRUSH MAKER DERMATOPATHOLOGY LABORATORY Embedded Images 0 1:20 PM [facility]B[employer] BRUSH [facility]KER DERMATOPATHOLOGY LABORATORY Pathology/Cytolog y TISSUE SPECIMEN FROM SKIN / Unknown 08/01/2019 08/04/2019 7:48 AM CARBON BRUSH MAKER Gwen Gutiérrez MD LAB - PATHOLOGY/CYT OLOGY ORDERABLES DERMATOPATHOLOGY LABORATORY [facility] - Department of Dermatology [facility] [facility], 5th [place] [address], [place] [phone] documented in this encounter Visit Diagnoses Not on filedocumented in this encounter
--- OUTSIDE RECORDS SUMMARY | 2024-09-09 10:31 | XMS_ITS | Encounter Summary ---
Author Organization [facility] Address [address] [place] [address] Phone Care Team Providers Care Appraiser Irrigation Tax Name Role Phone Lora Bajwa MD Unavailable + [phone] Bhargavi Tena MD Primary Care Provider Encounter Details Date Type Department Care Team (Late st Contact Info) Description 05/26/2022 Orders Only [facility] Scanning, Provider Social History Tobacco Use Types Packs/Day Years Used Date Smoking Tobacco: Former Cigarettes Q uit: 12/19/1993 Smokeless Tobacco: Never Sex and Gender Information Value Date Recorded Sex Assigned at Not on file 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
--- OUTSIDE RECORDS SUMMARY | 2024-09-09 10:31 | XMS_ITS | Encounter Summary ---
Author Organization [facility] Address [address] [place] [address] Phone Care Team Providers Care Supervisor Screen Making Name Role Phone Lora Bajwa MD Unavailable + [phone] Bhargavi Tena MD Primary Care Provider Encounter Details Date Type Department Care Team (Late st Contact Info) Description 03/02/2021 Orders Only [facility] Scanning, Provider Social History Tobacco Use Types Packs/Day Years Used Date Smoking Tobacco: Former Cigarettes Q uit: 12/19/1993 Smokeless Tobacco: Never Sex and Gender Information Value Date Recorded Sex Assigned at Not on file 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
--- OUTSIDE RECORDS SUMMARY | 2024-09-09 10:31 | XMS_ITS | Encounter Summary ---
Author Organization [facility] Address [address] [place] [address] Phone Care Team Providers Care Panel Machine Operator Name Role Phone Lora Bajwa MD Unavailable + [phone] Bhargavi Tena MD Primary Care Provider Encounter Details Date Type Department Care Team (Late st Contact Info) Description 11/16/2021 Orders Only [facility] Scanning, Provider Social History Tobacco Use Types Packs/Day Years Used Date Smoking Tobacco: Former Cigarettes Q uit: 12/19/1993 Smokeless Tobacco: Never Sex and Gender Information Value Date Recorded Sex Assigned at Not on file 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
--- OUTSIDE RECORDS SUMMARY | 2024-09-09 10:32 | XMS_ITS | Continuity of Care Document ---
Author Organization [facility] Address [address] [place] [address] Phone Care Team Providers Care Supervisor Paint Roller Covers Name Role Phone Michael Johnson DO Unavailable Unavailable Advance Directives Directive Yes / No Effective Date File Name No Information Encounters Encounter Description Practice Location Reason(s) For Visit Diagnoses Date Provider Providers Copied on Encounter Formerly [facility], [address], [place], [place], [id number], [place] tel:[phone] [facility] No Information Alex Stein. [address] [facility], [place], [address], [place]. tel: [phone] Family History Family Member Type Diagnosis Age [...]
--- OUTSIDE RECORDS SUMMARY | 2024-09-09 10:32 | XMS_ITS | Continuity of Care Document ---
Author Name [facility] Organization [facility] Care Team Providers Care Hangersmith Name Role Phone [facility] Unavailable Unavailable Problems Combined list of problems from [facility] and [facility] facilities. It does not include entries that were removed or entered in error. Problem Status Onset Date Problem Type Date of Resolution Comments Source Body mass index 30+ - obesity Active Condition [facility] Diabetes Mellitus Type 2 ([facility] [id number]) Active Condition [facility] Hyperlipidemia Active Condition [facility] Hyperlipidemia ([facility] [id number]) Active Condition [facility] Hypertension Active Condition [facility] Inflammatory arthritis Active Condition [facility] Sensorineural hearing loss, bilateral Active Condition [facility] Type 1 diabetes mellitus without complication Inactive Condition 01/09/2018 [facility] Diagnosis: ICD-10-CM Z00.00 Encntr for general adult medical exam w/o abnormal findings Active Diagnosis [facility] Diagnosis: ICD-10-CM H90.A31 Mix cndct/snrl hear loss,uni,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 Active Diagnosis [facility] Medications Combined list of outpatient medications from [facility] and [facility] facilities.Medications provided include 1) outpatient medications from the last 15 months, and 2) patient-reported medications. Medication Details Route Status Patient Instructions Prescription Expires Prescription Number Last Dispense Date Ordering Provider Order Date Order Qty Source amLODIPine 5 mg tablet 5 mg, Oral, # 90 EA, 0 total refill(s ), Hard Stop Oral (given by mouth) Discont inued 06/09/2024 2023 90.0 Ambulat ory Pharmac y amLODIPine 5 mg tablet 5 mg, Oral, Daily, # 90 EA, 0 total refill(s ), Hard Stop Oral (given by mouth) Discont inued 09/02/2024 5 2024 90.0 Ambulat ory Pharmac y amLODIPine 5 mg tablet See Instruct ions, # 90 EA, 1 total refill(s ), Soft Stop Ordered 5 2024 90.0 Ambulat ory Pharmac y ASPIRIN 81MG TAB,EC TAKE ONE TABLET BY MOUTH ONCE A DAY ORAL ACTIVE BEAR FERNANDEZ [place] 2016 [facility] aspirin EC 81 mg tablet 81 mg, [...] 4 2023 90.0 Ambulat ory Pharmac y cefdinir 300 mg capsule 300 mg, Oral, every 12 hr, # 20 EA, 0 total refill(s ), Hard Stop Oral (given by mouth) Complet ed 03/28/2024 4 2023 20.0 Ambulat ory Pharmac y CETIRIZINE HCL 10MG TAB TAKE ONE TABLET BY MOUTH ONCE A DAY ORAL ACTIVE NNAMDI AUSTIN 2017 [facility] cloNIDine 0.1 mg tablet See Instruct ions, [...] AT BEDTIME ORAL ACTIVE HUMA LIRIANO 2023 [facility] ECONAZOLE NITRATE 1% CREAM,TOP APPLY THIN FILM TO AFFECTED AREA(S) ONCE A DAY TOPICA Michael ACTIVE HUMA LIRIANO 2023 [facility] ESOMEPRAZOL E 20MG (BASE) CAP,EC TAKE 1 CAPSULE BY MOUTH EVERY MORNING BEFORE A MEAL ORAL ACTIVE NNAMDI [place] 2017 [facility] famotidine 10 mg tablet 10 mg, Oral, Daily, # 90 EA, 1 total refill(s ), Soft Stop Oral (given by mouth) Ordered 5 2024 90.0 Ambulat ory Pharmac y FLUoxetine 20 mg capsule 20 mg, Oral, Daily, # 90 EA, 1 total refill(s ), Hard Stop Oral (given by mouth) Ordered 03/17/2025 4 2023 90.0 Ambulat ory Pharmac y FLUOXETINE HCL 20MG CAP TAKE 1 CAPSULE BY MOUTH EVERY MORNING ORAL ACTIVE HUMA LIRIANO 2023 [facility] folic acid 1 mg tablet See Instruct ions, Oral, Daily, # 90 EA, 3 total refill(s ), Hard Stop Oral (given by mouth) Complet ed 02/14/2024 4 2023 90.0 Ambulat ory Pharmac y folic acid 1 mg tablet 1 mg, Oral, Daily, # 90 EA, 1 total refill(s ), Hard Stop Oral (given by mouth) Discont inued 09/02/2024 4 2024 90.0 Ambulat ory Pharmac y folic acid 1 mg tablet See Instruct ions, # 90 EA, 3 total refill(s ), Soft Stop Ordered 5 2024 90.0 Ambulat ory Pharmac y FOLIC ACID 1MG TAB TAKE ONE TABLET BY MOUTH ONCE A DAY ORAL ACTIVE BEAR FERNANDEZ MA 2016 [facility] GOLIMUMAB 100MG/ML INJ SMARTJECT INJECT 100MG/1M L UNDER THE SKIN ONE-TIME SUBCUT ANEOUS ACTIVE HUMA LIRIANO 2023 [facility] HYDROCHLORO THIAZIDE 12.5MG/IRBE SARTAN 300MG TAB TAKE ONE TABLET BY MOUTH ONCE A DAY ORAL ACTIVE HUMA LIRIANO 2023 [facility] hydrochloro thiazide-ir besartan 12.5 mg-300 mg tab = 1 tab(s), Oral, Daily, # 90 EA, 1 total refill(s ), Soft Stop Oral (given by mouth) Ordered 5 2024 90.0 Ambulat ory Pharmac y hydroxychlo roquine 200 mg tablet 200 mg, Oral, BID, # 180 EA, 3 total refill(s ), Hard Stop Oral (given by mouth) Complet ed 02/14/2024 4 2023 180.0 Ambulat ory Pharmac y hydroxychlo roquine 200 mg tablet 200 mg, Oral, BID, # 180 EA, 1 total refill(s ), Hard Stop Oral (given by mouth) Discont inued 09/02/2024 4 2024 180.0 Ambulat ory Pharmac y hydroxychlo roquine 200 mg tablet See Instruct ions, # 180 EA, 3 total refill(s ), Soft Stop Ordered 5 2024 180.0 Ambulat ory Pharmac y HYDROXYCHLO ROQUINE SO4 200MG TAB TAKE ONE-HALF TABLET BY MOUTH TWICE A DAY ORAL ACTIVE NNAMDI [place] 2017 [facility] ipratropium 21 mcg/inh nasal spray [30mL] See Instruct ions, # 30 mL, 0 total refill(s ), Hard Stop Discont inued 06/09/2024 4 2023 30.0 Ambulat ory Pharmac y ipratropium 21 mcg/inh nasal spray [30mL] See Instruct ions, # 30 mL, 0 total refill(s ), Hard Stop Complet ed 06/14/2024 4 2023 30.0 Ambulat ory Pharmac y methotrexat e 2.5 [...] total refill(s ), Hard Stop Discont inued 09/02/2024 4 2024 120.0 Ambulat ory Pharmac y methotrexat e 2.5 mg tablet See Instruct ions, # 120 EA, 1 total refill(s ), Soft Stop Ordered 5 2024 120.0 Ambulat ory Pharmac y methotrexat e 2.5 mg tablet See Instruct ions, # 120 EA, 3 total refill(s ), Hard Stop Discont inued 03/17/2024 4 2023 120.0 Ambulat ory Pharmac y METHOTREXAT E NA 2.5MG TAB TAKE FOUR TABLETS BY MOUTH EVERY WEEK ORAL ACTIVE HUMA LIRIANO 2023 [facility] omeprazole DR 20 mg capsule 20 mg, Oral, Daily, # 90 EA, 1 total refill(s ), Soft Stop Oral (given by mouth) Ordered 5 2024 90.0 Ambulat ory Pharmac y omeprazole DR 40 mg capsule 40 mg, Oral, Daily, # 90 EA, 0 total refill(s ), Hard Stop Oral (given by mouth) Discont inued 09/02/2024 5 2024 90.0 Ambulat ory Pharmac y [...] Stop Oral (given by mouth) Discont inued 09/02/2024 4 2024 90.0 Ambulat ory Pharmac y rosuvastati n 10 mg tablet 10 mg, Oral, Daily, # 90 EA, 1 total refill(s ), Hard Stop Oral (given by mouth) Discont inued 03/17/2024 4 2023 90.0 Ambulat ory Pharmac y rosuvastati n 10 mg tablet 10 mg, Oral, Daily, # 90 EA, 1 total refill(s ), Soft Stop Oral (given by mouth) Ordered 5 2024 90.0 Ambulat ory Pharmac y ROSUVASTATI N [place] 20MG TAB TAKE ONE-HALF TABLET BY MOUTH EVERY EVENING ORAL ACTIVE HUMA LIRIANO 2023 [facility] sildenafil 100 mg tablet 100 mg, [...] 4 2023 30.0 Ambulat ory Pharmac y Immunizations Combined list of available immunizations from the Department of Defense and Veterans Affairs facilities. Immunization Series Date Given Administered By Site Reaction Lot Number CVX Code Drug Associate Programmer Analyst Status Comments Source PNEUMOCOCCAL CONJUGATE PCV20, POLYSACCHARID E [id number] CONJUGATE, ADJUVANT, PF 2023 BOYD LITTLE LEFT DELTO ID [id number] 216 complet [facility] TDAP 2023 BOYD LITTLE RIGHT DELTO ID [id number] 115 complet [facility] COVID-19 (MODERNA), MRNA, LNP-S, PF, 50 MCG/0.5 ML (AGES 12+ YEARS) 2022 312 complet [facility] INFLUENZA, UNSPECIFIED FORMULATION 2022 88 complet [facility] N RSV, RECOMBINANT, PROTEIN SUBUNIT RSVPREF, ADJUVANT RECONSTITUTED , 0.5 ML, PF 2022 303 complet [facility] DIVISIO N INFLUENZA, UNSPECIFIED FORMULATION 2022 88 complet [facility] DIVISIO N ZOSTER RECOMBINANT 2 2022 187 complet [facility]IS[facility] N ZOSTER RECOMBINANT 1 2021 187 complet [facility] N COVID-19 (MODERNA), MRNA, LNP-S, BIVALENT, PF, 50 MCG/0.5 ML OR 25MCG/0.25 ML DOSE 1 2021 229 complet ed [facility] COVID-19 (MODERNA), MRNA, LNP-S, PF, 100 MCG/0.5ML DOSE OR 50 MCG/0.25ML DOSE 2021 207 complet ed [facility] COVID-19 (MODERNA), MRNA, LNP-S, PF, 100 MCG/0.5ML DOSE OR 50 MCG/0.25ML DOSE 3 2020 207 complet ed [facility] COVID-19 (MODERNA), MRNA, LNP-S, PF, 100 MCG/0.5ML DOSE OR 50 MCG/0.25ML DOSE 2 2020 207 complet ed [facility] COVID-19 (MODERNA), MRNA, LNP-S, PF, 100 MCG/0.5ML DOSE OR 50 MCG/0.25ML DOSE 1 2020 207 complet ed [facility] pneumococcal polysaccharid e, 23 valent 2019 zzLef t Arm [id number] 33 [employer] complet ed pneumococ trevor polysacch aride, 23 valent 05/18/20 Given Ambulat ory Pharmac y PNEUMOCOCCAL POLYSACCHARID E PPV23 2019 33 complet ed [facility] influenza virus vaccine, unspecified 2019 TRANSCR IBED 88 complet ed influenza virus vaccine, unspecifi ed 02/19/20 Given Ambulat ory Pharmac y influenza, injectable, quadrivalent- pf 2018 150 [employer] complet ed influenza , injectabl e, quadrival ent-pf 03/19/19 Given Ambulat ory Pharmac y influenza, seasonal, injectable 2018 TRANSCR IBED 141 complet ed influenza , seasonal, injectabl e 03/19/19 Given Ambulat ory Pharmac y INFLUENZA, INJECTABLE, QUADRIVALENT, PRESERVATIVE FREE 2018 150 complet ed [facility] Administe red by: RIMA WONG (WKK=[phone]). Partner 7 Lot#: [id number] Mfr: Sunbay hKline; Dosage: 0.5 [facility] influenza, injectable, quadrivalent- pf 2017 zzLef t Arm [id number] 150 [employer] complet ed influenza , injectabl e, quadrival ent-pf 04/11/18 Given Ambulat ory Pharmac y Influenza, inj, MDCK, quadrivalent- pf 2016 zzLef t Arm [id number] 171 [employer] complet ed Influenza , inj, MDCK, quadrival ent-pf 05/08/17 Given Ambulat ory Pharmac y ZOSTER LIVE 2016 121 complet ed [facility] influenza, seasonal, injectable-pf 2015 zzLef t Arm [id number] 140 [employer] complet ed influenza , seasonal, injectabl e-pf 03/13/16 Given Ambulat ory Pharmac y NOVEL INFLUENZA-H1N 1-09 1 2014 127 complet ed [facility] PNEUMOCOCCAL POLYSACCHARID E PPV23 1 2014 33 complet ed [facility] pneumococcal polysaccharid e, 23 valent 2014 zzLef t Arm [id number] 33 [employer] complet ed pneumococ trevor polysacch aride, 23 valent 03/15/15 Given Ambulat ory Pharmac y influenza, seasonal, injectable-pf 2014 zzLef t Arm [id number] 140 [employer] complet ed influenza , seasonal, injectabl e-pf 03/15/15 Given Ambulat ory Pharmac y PNEUMOCOCCAL POLYSACCHARID E PPV23 2014 33 complet ed [facility] tetanus, diphtheria, acellular pertu is 2013 TRANSCR IBED 115 complet ed tetanus, diphtheri a, acellular pertussis 08/28/13 Given Ambulat ory Pharmac y TDAP 2013 115 complet ed [facility] zoster vaccine live 2011 zzLef t Arm [id number] 121 [employer] complet ed zoster vaccine live 05/24/12 Given Ambulat ory Pharmac y influenza, seasonal, injectable 2010 [place] ht Arm [id number] sanofi pasteur complet ed influenza , seasonal, injectabl e 03/17/11 Given Ambulat ory Pharmac y tetanus, diphtheria, acellular pertu is 2010 Jennifer t Arm [id number] 115 [employer] complet ed tetanus, diphtheri a, acellular pertussis 03/17/11 Given Ambulat ory Pharmac y influenza virus vaccine, whole virus 1998 [id number] 16 [employer] complet ed influenza virus vaccine, whole virus 04/09/99 Given Ambulat ory Pharmac y influenza virus vaccine, whole virus [id number] 16 [employer] complet ed influenza virus vaccine, whole virus 08/03/98 Given Ambulat ory Pharmac y hepatitis A adult vaccine 1995 TRANSCR IBED 52 complet ed hepatitis A adult vaccine 03/14/96 Given Ambulat ory Pharmac y Vital Signs Combined list of inpatient and outpatient Vital Signs from Department of [facility] and [facility], ranging from 12 months to all on record, depending upon the facility. Vital Sign Value Date Comments Source SYSTOLIC BLOOD PRESSURE 138 02/20/2024 08:14:26 [facility] DIASTOLIC BLOOD PRESSURE 78 02/20/2024 08:14:26 [facility] PULSE OXIMETRY 96 02/20/2024 [facility]14[facility] WE[facility] 263.8 02/20/2024 08:14:26 [facility] BMI 36 kg/m2 02/20/2024 08:14:26 [facility] PAIN 3 02/20/2024 08:14:26 [facility] HEIGHT 72 02/20/2024 08:14:26 [facility] TEMPERATURE 97.8 02/20/2024 08:14:26 [facility] PULSE 76 02/20/2024 08:14:26 [facility] RESPIRATION 20 02/20/2024 08:14:26 [facility] Encounters Combined list of: 1) Encounters from Department of Veterans Affairs facilities going backup to the last 18 months, not all [place] inpatient encounters are included; 2) Encounters from the Department of Defense facilities going backup to 280 months. Location Location Details Encounter Type Encounter Number Reason For Visit Attending Provider ADM Date DC Date Status Disposition Source [facility] Outpatient Encounter [id number] 03/23 [facility] QNHP OL DIG ASSMT&MGMT 5-10 [id number] Diagnos is: ICD-10- CM H90.A31 Mix cndct/s nrl hear loss,un i,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 WISEMANCONI JONES K 10/28 [facility] HEARING AID EXAM BOTH EARS [id number] Diagnos is: ICD-10- CM H90.A31 Mix cndct/s nrl hear loss,un i,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 [place] 10/30 [facility] TYMPANOMET RY & REFLEX THRESH [id number] Diagnos is: ICD-10- CM H90.A31 Mix cndct/s nrl hear loss,un i,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 [place] 10/30 [facility] Outpatient Encounter [id number] 10/30 [facility] Outpatient Encounter [id number] 10/30 [facility] HEARING SERVICE [id number] Diagnos is: ICD-10- CM H90.A31 Mix cndct/s nrl hear loss,un i,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 [place] M 11/29 [facility] Outpatient Encounter [id number] 12/16 [facility] N [facility] OFFICE O/P EST MOD 30 MIN [id number] Diagnos is: ICD-10- CM Z00.00 Encntr for general adult medical exam w/o abnorma l marta s Esetlla LIRIANO L 02/19 [facility] En[facility] [id number] 02/20 [facility] N Procedures Combined list of: 1) Procedures from Department of Veterans Affairs facilities going back up to thelast 18 months, not all [place] non-surgical procedures are included; 2) All procedures from the Department of [facility] facilities. Procedure Procedure Type Code Date Perfomer Comments Sourc e No data available for this section Ambulatory P harmacy Social History Combined list of available smoking, tobacco, and other social history from Department of Defense and Veterans Affairs facilities. Social History Type Response Date Comment Sourc e Tobacco smoking status NHIS [place]-TOBACCO FORMER USER 02/20/2024 [facility] History of tobacco use CA-TOBACCO QUIT 5 TO < 15 YRS 02/20/2024 [facility] History of tobacco use CA-TOBACCO QUIT 1 5 YRS OR MORE 08/14/2018 [facility] History of tobacco use QUIT TOBACCO >7 Y EARS AGO 01/10/2017 [facility] Assessment and Plan Combined list of future care activities from Department of Defense and Veterans Affairs facilities (e.g., assessment and plan notes, appointments, orders, and referrals). Additional future care activities may be listed in the Plan of Care section. Result Assessment and Plan Date Source Assessment and Plan No data available for this section 09/09/2024 Ambulatory Pharmacy Functional Status Combined list of recent functional and cognitive assessments recorded at Department of Defense and Veterans Affairs (VA).VA Functional [place] Measurement (FIM) Scale: 1 = Total Assistance (Subject = 0% +), 2 = Maximal Assistance (Subject = 25% +), 3 = Moderate Assistance (Subject = 50% +), 4 = Minimal Assistance (Subject = 75% +), 5 = Supervision, 6 = Modified Conway (Device), 7 = Complete Conway (Timely, Safely). Assessment Date/Time Source Assessment Type Assessment Skill Assessment Score Assessment Details No data available for this section
--- OUTSIDE RECORDS SUMMARY | 2024-09-09 10:32 | XMS_ITS | Referral Summary ---
Author Organization [facility] 1 Address [address] [place] [address] Care Team Providers Care Flat Cutter Name Role Phone Lora Bajwa MD Unavailable [phone] Bhargavi Tena MD Primary Care Provider Encounters Date Type Department Care Team Description 08/20/2024 9:30 AM DRILL FOREMAN Infusion [facility] Infusion Therapy [address] [facility] 2nd Floor [address] [place] [address] Rheumatoid arthritis of 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 (HCC) (Primary Dx) 08/20/2024 10:20 AM DRILL FOREMAN Office Visit [facility] Rheumatology [address] [facility] 2nd Floor [address] [place] [address] Malina Renteria NP Rheumatoid arthritis of 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 (HCC) (Primary Dx); High risk medication use 07/04/2024 Documentation [facility] Rheumatology [address] [facility] 2nd Floor [address] [place] [address] Chandana Maurice Eye Exam (05-01-24 Quantum ok for plaquenil) 06/20/2024 9:18 AM DRILL FOREMAN - 06/20/2024 11:59 PM DRILL FOREMAN Hospital Encounter [facility] [address], [place] [id number] Rheumatoid arthritis of 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 (HCC); High risk medication use Discharge Disposition: Discharge to home or self care 06/20/2024 9:30 AM DRILL FOREMAN Infusion [facility] Infusion Therapy [address] [place] [address] Rheumatoid arthritis 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 [facility] with [...] on file Legal Sex Male 12:56 AM DRILL FOREMAN Gender Identity Male 02/26/2020 6:57 AM CDT Sexual Orientation Straight 02/26/2020 6: 57 AM CDT Last Filed Vital Signs Vital Sign Reading Time Taken Comments Blood Pressure 143/90 08/20/2024 9:59 AM DRILL FOREMAN Pulse 72 08/20/2024 9:59 AM DRILL FOREMAN Temperature 36.3 C (97.4 F) 08/20/2024 9:59 AM DRILL FOREMAN Respiratory Rate - - Oxygen Saturation 97% 08/20/2024 9:59 AM DRILL FOREMAN Inhaled Oxygen Concentration - - Weight 126.5 kg (278 lb 12.8 oz) 08/20/2024 9:59 AM DRILL FOREMAN Height 182.9 cm (6') 08/20/2024 9:59 AM DRILL FOREMAN Body Mass Index 37.81 08/20/2024 9:59 AM DRILL FOREMAN Plan of Treatment Not on file Procedures Procedure Name Priority Date/Time Associated Diagnosis Comments EGFR Routine 06/20/2024 11:30 AM DRILL FOREMAN High risk medication use DIFFERENTIAL AUTO Routine 06/20/2024 11: 30 AM DRILL FOREMAN High risk medication use CBC WITH AUTO DIFFERENTIAL Routine 06/20/2024 11:30 AM DRILL FOREMAN High risk medication use COMPREHENSIVE METABOLIC PANEL Routine 06/20/2024 11:30 AM DRILL FOREMAN High risk medication use ERYTHROCYTE SEDIMENTATION RATE Routine 06/20/2024 11:30 AM DRILL FOREMAN Rheumatoid arthritis of 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 (HCC) CRP (ACUTE PHASE) Routine 06/20/2024 11: 30 AM DRILL FOREMAN Rheumatoid arthritis of 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 (HCC) T-SPOT.TB Routine 06/20/2024 11:30 AM DRILL FOREMAN High risk medication use CT ABDOMEN PELVIS WO CONTRAST Routine 10/17/2016 6:59 AM CDT from Last 3 Months or Most Recently Relevant to Health Maintenance Results * T-SPOT.TB Blood (06/20/2024 11:30 AM DRILL FOREMAN) [facility] T-SPOT.TB Negative SeeBelow Comment: Normal [...] test. T-SPOT.TB Panel A Spot Count 0 [facility] T-SPOT.TB Panel B Spot Count 0 [facility] T-SPOT.TB Negative Control Passed [facility] T-SPOT.TB Positive Control Passed [facility] Comment: Test Performed at: [employer] [facility], [email or web address] [address] [place] [id number] CUAUHTEMOC GALICIA,PHD Blood 06/20/2024 11:3 0 AM DRILL FOREMAN 06/20/2024 12:52 PM DRILL FOREMAN Malina Renteria NP LAB MICROBIOLOGY - GENERAL ORDERABLES Final Result [facility] Department [place] [address] * eGFR (06/20/2024 11:30 AM DRILL FOREMAN) eGFR >90 >=60 mL/min/1. 73 m2 Comment: [...] reviewed 2021. Blood 06/20/2024 11:3 0 AM DRILL FOREMAN 06/20/2024 12:26 PM DRILL FOREMAN Malina Renteria [facility] LAB BLOOD ORDERABLES Final Result [facility] Department [place] [address] * Differential, auto (06/20/2024 11:30 AM DRILL FOREMAN) Neutrophil abs 2.8 1.5 - 6.5 K/cumm Imm gran abs 0.0 0.0 - 0.1 K/cumm [facility] Lymphocyte abs 2.5 0.8 - 3.3 K/cumm [facility] Monocyte abs 0.7 0.2 - 0.8 K/cumm [facility] Eosinophil abs 0.2 0.0 - 0.5 K/cumm [facility] Basophil abs 0.1 0.0 - 0.1 K/cumm [facility] Neutrophil pct 45.1 % [facility] Comment: Interpretive Data Percent cell count reference ranges are not reported, since discordance with absolute values may lead to misinterpretation of CBC data. Current Interpretive Data was last revised on 2017. Imm gran pct 0.2 % [facility] Comment: Interpretive Data Percent cell count reference ranges are not reported, since discordance with absolute values may lead to misinterpretation of CBC data. Current Interpretive Data was last revised on 2017. Lymphocyte pct 40.4 % [facility] Comment: Interpretive Data Percent cell count reference ranges are not reported, since discordance with absolute values may lead to misinterpretation of CBC data. Current Interpretive Data was last revised on 2017. Monocyte pct 10.7 % [facility] Comment: Interpretive Data Percent cell count reference ranges are not reported, since discordance with absolute values may lead to misinterpretation of CBC data. Current Interpretive Data was last revised on 2017. Eosinophil pct 2.6 % [facility] Comment: Interpretive Data Percent cell count reference ranges are not reported, since discordance with absolute values may lead to misinterpretation of CBC data. Current Interpretive Data was last revised on 2017. Basophil pct 1.0 % [facility] Comment: Interpretive Data Percent cell count reference ranges are not reported, since discordance with absolute values may lead to misinterpretation of CBC data. Current Interpretive Data was last revised on 2017. Blood 06/20/2024 11:3 0 AM DRILL FOREMAN 06/20/2024 12:15 PM DRILL FOREMAN us Malina Renteria [facility] LAB BLOOD ORDERABLES Final Result [facility] Department [place] [address] * CBC with auto differential (06/20/2024 11:30 AM DRILL FOREMAN) WBC 6.2 3.8 - 9.9 K/cumm Hgb 15.0 13.0 - 17.5 g/dL [facility] Hct 45.7 38.9 - 50.3 % [facility] Plt 270 150 - 400 K/cumm [facility] MPV 10.2 9.1 - 12.3 fL [facility] RBC 4.89 4.30 - 5.80 M/cumm [facility] MCV 93.5 81.3 - 96.4 fL [facility] MCH 30.7 27.1 - 33.3 pg [facility] MCHC 32.8 32.3 - 35.7 g/dL [facility] RDW CV 13.8 11.1 - 14.9 % [facility] RDW SD 47.5 35.7 - 48.1 fL [facility] NRBC abs 0.00 0.00 - 0.01 K/cumm [facility] Blood 06/20/2024 11:3 0 AM DRILL FOREMAN 06/20/2024 12:15 PM DRILL FOREMAN Malina Renteria NP LAB BLOOD ORDERABLES Final Result Performing Organization Address City/[facility]/ZIP Co de Phone Number [facility] [place] [address] * Erythrocyte sedimentation rate (06/20/2024 11:30 AM DRILL FOREMAN) [facility] Erythrocyte sedimentation rate 8 1 - 20 mm/hr Blood 06/20/2024 11:3 0 AM DRILL FOREMAN 06/20/2024 12:15 PM DRILL FOREMAN Malina Renteria NP LAB BLOOD ORDERABLES Final Result Performing Organization Address [facility] Co de Phone Number [facility] [place] [address] * CRP (acute phase) (06/20/2024 11:30 AM DRILL FOREMAN) [facility] CRP 0.9 <=10.0 mg/L Blood 06/20/2024 11:3 0 AM DRILL FOREMAN 06/20/2024 12:15 PM DRILL FOREMAN Malina Renteria NP LAB BLOOD ORDERABLES Final Result Performing Organization Address City/[facility] Co de Phone Number [facility] [place] [address] * Comprehensive metabolic panel (06/20/2024 11:30 AM DRILL FOREMAN) Pathologist [facility] Sodium 141 135 - 145 mmol/L Potassium, pl 4.1 3.3 - 4.9 mmol/L [facility] Chloride 104 97 - 110 mmol/L [facility] CO2 28 22 - 32 mmol/L [facility] Anion gap 9 2 - 15 mmol/L [facility] BUN 14 6 - 25 mg/dL [facility] Creatinine 0.84 0.80 - 1.30 mg/dL [facility] Glucose 156 70 - 199 mg/dL [facility] Comment: Interpretive Data Fasting glucose >/= [...] 2022. Calcium 9.3 8.5 - 10.3 mg/dL [facility] Bilirubin, total 0.6 0.1 - 1.2 mg/dL [facility] Protein, pl 7.8 6.5 - 8.5 g/dL [facility] Albumin 4.4 3.5 - 5.0 g/dL [facility] Alk phos 78 40 - 130 Units/L [facility] ALT 42 7 - 55 Units/L [facility] AST 35 10 - 50 Units/L [facility] Blood 06/20/2024 11:3 0 AM DRILL FOREMAN 06/20/2024 12:15 PM DRILL FOREMAN us Malina Renteria NP LAB BLOOD ORDERABLES Final Result [facility] Department [place] [address] * CT Abdomen Pelvis WO Contrast (10/17/2016 [...] Recently Relevant to Health Maintenance Insurance MEDICARE [facility] MEDICARE [facility] MEDICARE [facility] Advance Directives For more information, please contact: [phone] Documents on File Type Date Recorded 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
== END 2024-09-09 09:25 | disposition home or self-care (01) ==
PROVIDERS: PCP Family Medicine; Visit Provider Urology
DX: N20.0 Calculus of kidney (principal)
CPT/HCPCS: 74018

== ENCOUNTER 2024-11-20 14:52 | Outpatient (CLI) | payer MEDICARE, OTHER, SELFPAY ==
--- NOTE | ~2024-11-20 | XR_ITS ---
AP and lateral views of the sacrum/coccyx CLINICAL HISTORY: Pain FINDINGS: Bilateral hip and SI joints are intact. No fracture or dislocation seen. Soft tissues are u nremarkable. There is extensive facet arthropathy at the visualized lower lumbar spine. IMPRESSION: No acute abnormality seen. Extensive facet arthropathy at the visualized lower lumbar spine. Reviewed, dictated and finalized at location .
--- NOTE | ~2024-11-20 | XR_ITS ---
Lumbosacral Spine: AP and lateral views Clinical History: Pain Findings: The normal lordotic curve is maintained. There is mild compression fracture deformity super ior plate of L4, possibly acute. There is extensive facet arthropathy throughout the lumbar spine. Th ere is moderate degenerative disc narrowing at L4-L5 and L5-S1. The sacroiliac joints are normally ou tlined. Impression: Mild L4 compression fracture, possibly acute. Correlate for point tenderness. Extensive facet arthropathy and moderate degenerative disc changes, as above. Reviewed, dictated and finalized at location M. Impression: Mild L4 compression fracture, possibly acute. Correlate for point tenderness. Extensive facet arthropathy and moderate degenerative disc changes, as above.
--- OUTSIDE RECORDS SUMMARY | 2024-11-20 15:31 | XMS_ITS | Encounter Summary ---
Author Organization [facility] Address [address] [facility] [place] [address] Care Team Providers Care Mop Man Name Role Phone Unavailable Primary Care Provider Unavailabl e Encounter Details Date Type Department Care Team (Late st Contact Info) Description 08/29/2023 Lab Requisition [facility] - DermPath Lab [address] [facility] [place] [address] Johanna Wagner MD [address] [facility] [address] [place] [address] Social History Tobacco Use Types Packs/Day Years Used Date Smoking Tobacco: Former Cigarettes Q uit: 06/22/1993 Alcohol Use Standard Drinks/Week Comments No 0 (1 standard drink = 0.6 oz pur e alcohol) Sex and Gender Information Value Date Recorded Sex Assigned at Not on file 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 Gender Identity Not on file Sexual Orientation Not on file documented as of this encounter Plan of Treatment Not on file documented as of this encounter Procedures Procedure Name Priority Date/Time Associated Diagnosis Comments DERMATOPATHOLOGY Routine 08/29/2023 8:34 AM CDT documented in this encounter Results * DERMATOPATHOLOGY (08/29/2023 8:34 AM CDT) Case Report Dermatopathology Report Case: [id number] Authorizing Provider: Johanna Wagner MD Collected: 08/29/2023 08:34 AM Ordering Location: [facility] - Received: 08/30/2023 10:49 AM DermPath Lab Pathologist: Lauren Roberts MD Specimens: A) - Skin, left neck B) - Skin, left forehead 3:33 PM T DERMATOPATHOLOGY LABORATORY Final Diagnosis Specimen A. SKIN, left neck: ACTINIC KERATOSIS, INFLAMED (L57.0) Specimen B. SKIN, left forehead: GRANULOMATOUS DERMATITIS CONSISTENT WITH A RUPTURED CYST OR HAIR FOLLICLE (L72.0) 3:33 PM CDT DERMATOPATHOLOGY LABORATORY at 1533 CDT Clinical History A-B: r/o BCC 3:33 PM CDT DERMATOPATHOLOGY LABORATORY Gross Description [...] measuring 5x5x1 mm. Jar 0. 3:33 PM CDT DERMATOPATHOLOGY LABORATORY Microscopic Description Specimen A. SKIN, left neck: There is hyperkeratosis, parakeratosis, papillomatosis, and acanthosis of the epidermis. There is a lymphohistiocytic infiltrate within the papillary dermis that is focally lichenoid. Specimen B. SKIN, left forehead: Neutrophils, histiocytes, and multinucleated giant cells are present within the dermis. 3:33 PM CDT DERMATOPATHOLOGY LABORATORY Disclaimer An external and internal positive and negative controls are appropriate for the histochemical, immunohistochemical and immunofluorescence stain(s) in this case (if any), except where stated explicitly. The performance characteristics of the stain(s) cited in this report were developed and its performance characteristic determined by the Dermatopathology Laboratory at [facility], directed by Dr. Sandi Hubbard. These tests need not be, and therefore are not, approved by the [place] Food and Drug Administration. The tests are used for clinical purposes. Billing Codes Specimen Charges Stain Charges 36599 55389 1 1 3:33 PM CDT DERMATOPATHOLOGY LABORATORY Embedded Images 03/15/202 4 3:33 PM CDT DERMATOPATHOLOGY LABORATORY Pathology/Cytology TISSUE SPECIMEN FROM SKIN / Unknown 08/29/2023 8:34 AM CDT 08/30/2023 10:49 AM CDT Miscellaneous samples (specimen) TISSUE SPECIMEN FROM SKIN / Unknown 08/29/2023 8:34 AM CDT 08/30/2023 10:49 AM CDT us Johanna Wagner MD LAB - PATHOLOGY/CYTOLOGY ORD ERABLES Final Result DERMATOPATHOLOGY LABORATORY [facility] - Department of Dermatology [facility] Specialized Medicine [address] [place] [address], [address] [phone] documented in this encounter Visit Diagnoses Not on filedocumented in this encounter
--- OUTSIDE RECORDS SUMMARY | 2024-11-20 15:31 | XMS_ITS | Encounter Summary ---
Author Organization [facility] Address [address] [place] [address] Phone Care Team Providers Care Minister Helper Name Role Phone Lora Bajwa MD Unavailable + [phone] Bhargavi Tena MD Primary Care Provider Encounter Details Date Type Department Care Team (Late st Contact Info) Description 05/26/2022 Orders Only [facility] Scanning, Provider Social History Tobacco Use Types Packs/Day Years Used Date Smoking Tobacco: Former Cigarettes Q uit: 12/19/1993 Smokeless Tobacco: Never Sex and Gender Information Value Date Recorded Sex Assigned at Not on file 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
--- OUTSIDE RECORDS SUMMARY | 2024-11-20 15:31 | XMS_ITS | Encounter Summary ---
Author Organization [facility] Address [address] [place] [address] Phone Care Team Providers Care Administrative Medical Director Name Role Phone Lora Bajwa MD Unavailable + [phone] Bhargavi Tena MD Primary Care Provider Encounter Details Date Type Department Care Team (Late st Contact Info) Description 11/16/2021 Orders Only [facility] Scanning, Provider Social History Tobacco Use Types Packs/Day Years Used Date Smoking Tobacco: Former Cigarettes Q uit: 12/19/1993 Smokeless Tobacco: Never Sex and Gender Information Value Date Recorded Sex Assigned at Not on file 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
--- OUTSIDE RECORDS SUMMARY | 2024-11-20 15:31 | XMS_ITS | Encounter Summary ---
Author Organization [facility] Address [address] [facility] [place] [address] Care Team Providers Care Software Development Analyst Name Role Phone Unavailable Primary Care Provider Unavailabl e Encounter Details Date Type Department Care Team (Late st Contact Info) Description 10/27/2024 Lab Requisition [facility] Physician [facility] - DermPath Lab [address] [facility] [place] [address] Johanna Wagner MD [address] [facility] 3 [place] [address] Social History Tobacco Use Types Packs/Day Years Used Date Smoking Tobacco: Former Cigarettes Q uit: 06/22/1993 Alcohol Use Standard Drinks/Week Comments No 0 (1 standard drink = 0.6 oz pur e alcohol) Sex and Gender Information Value Date Recorded Sex Assigned at Not on file 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 Gender Identity Not on file Sexual Orientation Not on file documented as of this encounter Plan of Treatment Not on file documented as of this encounter Procedures Procedure Name Priority Date/Time Associated Diagnosis Comments DERMATOPATHOLOGY Routine 10/27/2024 8:24 AM CDT documented in this encounter Results * DERMATOPATHOLOGY (10/27/2024 8:24 AM CDT) Case Report Dermatopathology Report Case: [id number] Authorizing Provider: Johanna Wagner MD Collected: 10/27/2024 08:24 AM Ordering Location: [facility] - Received: 10/27/2024 01:08 PM DermPath Lab Pathologist: Zoya Short MD Specimen: Skin, left post auricular 12:44 PM CDT DERMATOPATHOLOGY LABORATORY Final Diagnosis Specimen A. SKIN, left post auricular: BASAL CELL CARCINOMA (C44.41) NOT PRESENT AT MARGIN DERMAL SCAR (L90.5) 12:44 PM CDT DERMATOPATHOLOGY LABORATORY at 1244 CDT Clinical History Bx Proven BCC. Check margins. Prior Biopsy 12:44 PM CDT DERMATOPATHOLOGY LABORATORY Gross Description Specimen A: Received is one formalin filled container labeled with the patient's name and designated left post auricular.The specimen consists of an ellipse measuring 69e56e5 mm and is oriented with the suture/notch at the 12 o'clock position labeled on the requisition as hash. The 12 to 6 o'clock margin is inked green. The 6 o'clock to 12 o'clock margin is inked red. The 12 o'clock tip is submitted in cassette 1. The 6 o'clock tip is submitted in cassette 2. The remainder of the ellipse is serially sectioned and submitted in cassettes 3-5. Jar 0. 12:44 PM CDT DERMATOPATHOLOGY LABORATORY Microscopic Description Specimen A. SKIN, left post auricular: Within the dermis there are aggregates of basaloid cells with a high nuclear to cytoplasmic ratio and peripheral palisading. This lesion is not present at the margin of the specimen. There are fibroblasts and collagen bundles oriented parallel to the skin surface with elongated blood vessels, some of which are oriented perpendicular to the skin surface. 12:44 PM CDT DERMATOPATHOLOGY LABORATORY Disclaimer An external and internal positive and negative controls are appropriate for the histochemical, immunohistochemical and immunofluorescence stain(s) in this case (if any), except where stated explicitly. The performance characteristics of the stain(s) cited in this report were developed and its performance characteristic determined by the Dermatopathology Laboratory at [facility], directed by Dr. Sandi Hubbard. These tests need not be, and therefore are not, approved by the [place] Food and Drug Administration. The tests are used for clinical purposes. Billing Codes Specimen Charges Stain Charges 30119 1 5 12:44 PM CDT DERMATOPATHOLOGY LABORATORY Embedded Images 12:44 PM CDT DERMATOPATHOLOGY LABORATORY Pathology/Cytolo gy TISSUE SPECIMEN FROM SKIN / Unknown 10/27/2024 8:24 AM CDT 10/27/2024 1:08 PM CDT us Johanna Wagner MD LAB - PATHOLOGY/CYTOLOGY ORD ERABLES Final Result DERMATOPATHOLOGY LABORATORY [facility] - Department of Dermatology [facility] Specialized Medicine [address] [place] [address], [address] [phone] documented in this encounter Visit Diagnoses Not on filedocumented in this encounter
--- OUTSIDE RECORDS SUMMARY | 2024-11-20 15:31 | XMS_ITS | Encounter Summary ---
Author Organization [facility] Address [address] [place] [address] Phone Care Team Providers Care Glass Processing Worker Name Role Phone Lora Bajwa MD Unavailable + [phone] Bhargavi Tena MD Primary Care Provider Encounter Details Date Type Department Care Team (Late st Contact Info) Description 03/02/2021 Orders Only [facility] Scanning, Provider Social History Tobacco Use Types Packs/Day Years Used Date Smoking Tobacco: Former Cigarettes Q uit: 12/19/1993 Smokeless Tobacco: Never Sex and Gender Information Value Date Recorded Sex Assigned at Not on file 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
--- OUTSIDE RECORDS SUMMARY | 2024-11-20 15:31 | XMS_ITS | Encounter Summary ---
Author Organization [facility] Address [address] [place] [address] Phone Care Team Providers Care Color Blender Name Role Phone Lora Bajwa MD Unavailable [phone] Amanda Villa DO Primary Care Provider [phone] Bhargavi Tena MD Primary Care Provider Encounter Details Date Type Department Care Team (Late st Contact Info) Description 11/16/2020 Orders Only [facility] Scanning, Provider Social History Tobacco Use Types Packs/Day Years Used Date Smoking Tobacco: Former Cigarettes Q uit: 12/19/1993 Smokeless Tobacco: Never Sex and Gender Information Value Date Recorded Sex Assigned at Not on file 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 [address] [place] [address] PCP - General Family Medicine 11/30/20 Lora Bajwa MD [address] [place] [address] Referring Physician Family Practice 11/20/18 documented as of this encounter
--- OUTSIDE RECORDS SUMMARY | 2024-11-20 15:31 | XMS_ITS | Encounter Summary ---
Author Organization [facility] Address [address] [place] [address] Phone Care Team Providers Care Pipeman Name Role Phone Lora Bajwa MD Unavailable [phone] Bhargavi Tena MD Primary Care Provider Encounter Details Date Type Department Care Team (Late st Contact Info) Description 08/16/2021 Orders Only [facility] Scanning, Provider Social History Tobacco Use Types Packs/Day Years Used Date Smoking Tobacco: Former Cigarettes Q uit: 12/19/1993 Smokeless Tobacco: Never Sex and Gender Information Value Date Recorded Sex Assigned at Not on file 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
--- OUTSIDE RECORDS SUMMARY | 2024-11-20 15:31 | XMS_ITS | Encounter Summary ---
Author Organization [facility] Address [address] [facility] [place] [address] Care Team Providers Care Senior Peoplesoft Developer Name Role Phone Unavailable Primary Care Provider Unavailabl e Encounter Details Date Type Department Care Team (Late st Contact Info) Description 10/13/2024 Lab Requisition [facility] - DermPath Lab [address] [facility] [place] [id number] Johanna Wagner MD [address] [facility] [address] [place] [address] Social History Tobacco Use Types Packs/Day Years Used Date Smoking Tobacco: Former Cigarettes Q uit: 06/22/1993 Alcohol Use Standard Drinks/Week Comments No 0 (1 standard drink = 0.6 oz pur e alcohol) Sex and Gender Information Value Date Recorded Sex Assigned at Not on file 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 Gender Identity Not on file Sexual Orientation Not on file documented as of this encounter Plan of Treatment Not on file documented as of this encounter Procedures Procedure Name Priority Date/Time Associated Diagnosis Comments DERMATOPATHOLOGY Routine 10/13/2024 8:59 AM CDT documented in this encounter Results * DERMATOPATHOLOGY (10/13/2024 8:59 AM CDT) Case Report Dermatopathology Report Case: [id number] Authorizing Provider: Johanna Wagner MD Collected: 10/13/2024 08:59 AM Ordering Location: [facility] - Received: 10/14/2024 07:25 AM DermPath Lab Pathologist: Zoya Short MD Specimens: A) - Skin, right neck B) - Skin, left post auricular 5:12 PM CDT DERMATOPATHOLOGY LABORATORY Final Diagnosis Specimen A. SKIN, right neck: BASAL CELL CARCINOMA (C44.41) PRESENT AT LATERAL 6 TO 12 O'CLOCK MARGIN DERMAL SCAR (L90.5) Specimen B. SKIN, left post auricular: BASAL CELL CARCINOMA, NODULAR TYPE (C44.41) 5:12 PM CDT DERMATOPATHOLOGY LABORATORY at 1711 CDT Clinical History A. Bx Proven BCC B. Non Healing [place] Papule R/O BCC 5:12 PM CDT DERMATOPATHOLOGY LABORATORY Gross Description Specimen A: Received is one formalin filled container labeled with the patient's name and designated right neck.The specimen consists of an ellipse measuring 15w85l9 mm and is oriented with the suture/notch at the 12 o'clock position labeled on the requisition as superior suture. The 12 to 6 o'clock margin is inked green. The 6 o'clock to 12 o'clock margin is inked red. The 12 o'clock tip is submitted in cassette 1. The 6 o'clock tip is submitted in cassette 2. The remainder of the ellipse is serially sectioned and submitted in cassettes 3 -4. Jar 0. Specimen B: Received is one formalin filled container labeled with the patient's name and designated left post auricular. The specimen consists of a shave biopsy measuring 6x6x4 mm. Jar 0. 5:12 PM CDT DERMATOPATHOLOGY LABORATORY Microscopic Description Specimen A. SKIN, right neck: Within the dermis there are aggregates of basaloid cells with a high nuclear to cytoplasmic ratio and peripheral palisading. This lesion is present at the red, 6 to 12 o'clock margin of the specimen in section A3. There are fibroblasts and collagen bundles oriented parallel to the skin surface with elongated blood vessels, some of which are oriented perpendicular to the skin surface. Specimen B. SKIN, left post auricular: Within the dermis there are aggregates of basaloid cells with a high nuclear to cytoplasmic ratio and peripheral palisading. 5:12 PM CDT DERMATOPATHOLOGY LABORATORY Disclaimer An external and internal positive and negative controls are appropriate for the histochemical, immunohistochemical and immunofluorescence stain(s) in this case (if any), except where stated explicitly. The performance characteristics of the stain(s) cited in this report were developed and its performance characteristic determined by the Dermatopathology Laboratory at [facility], directed by Dr. Sandi Hubbard. These tests need not be, and therefore are not, approved by the [place] Food and Drug Administration. The tests are used for clinical purposes. Billing Codes Specimen Charges Stain Charges 44478 45016 1 1 5 5:12 PM CDT DERMATOPATHOLOGY LABORATORY Embedded Images 5 5:12 PM CDT DERMATOPATHOLOGY LABORATORY Pathology/Cytology TISSUE SPECIMEN FROM SKIN / Unknown 10/13/2024 8:59 AM CDT 10/14/2024 7:25 AM CDT Miscellaneous samples (specimen) TISSUE SPECIMEN FROM SKIN / Unknown 10/13/2024 8:59 AM CDT 10/14/2024 7:25 AM CDT us Johanna Wagner MD LAB - PATHOLOGY/CYTOLOGY ORD ERABLES Final Result DERMATOPATHOLOGY LABORATORY [facility] - Department of Dermatology [facility] Medicine [address] [place] [address], [address] [place] [address], [facility] [phone] documented in this encounter Visit Diagnoses Not on filedocumented in this encounter
--- OUTSIDE RECORDS SUMMARY | 2024-11-20 15:31 | XMS_ITS | Continuity of Care Document ---
Author Name DOD-AR Organization DOD-AR Care Team Providers [facility] Cente[facility] Name Role Phone [facility] Unavailable Unavailable Problems Combined list of problems from Department of Defense and Veterans Affairs facilities. It does not include entries that were removed or entered in error. Problem Status Onset Date Problem Type Date of Resolution Comments Source Body mass index 30+ - obesity Active Condition [facility] Diabetes Mellitus Type 2 ([facility] [id number]) Active Condition [facility] Hyperlipidemia Active Condition [facility] Hyperlipidemia ([facility] [id number]) Active Condition [facility] Hypertension Active Condition [facility] Inflammatory arthritis Active Condition [facility] Sensorineural hearing loss, bilateral Active Condition [facility] Type 1 diabetes mellitus without complication Inactive Condition 01/09/2018 [facility] HEADACHE SYNDROMES Active Condition [facility] Administrative Evaluation Services Inactive Condition DoD CATARACT SENILE COMBINED FORMS Active Condition DoD DERMATOCHALASIS BOTH EYES Active Condition DoD ANISOMETROPIA Active Condition DoD PLANTAR FASCIITIS Active Condition DoD DERMATOPHYTOSIS Active Condition [facility] Outpatient Physician Consultation Active Condition DoD DERMATOLOGY - NON-INFECTIOUS Inactive Condition DoD HEARING LOSS Active Condition DoD ALLERGIC RHINITIS Active Condition DoD visit for: refer patient without exam or treatment Inactive Condition [facility] visit for: issue repeat prescription Inactive Condition DoD Imaging Studies Inactive Condition DoD ANOMALIES OF GALLBLADDER, BILE DUCTS, AND LIVER Active Condition DoD INGUINAL HERNIA Inactive Condition DoD BACKACHE Active Condition DoD SCIATICA Active Condition DoD ASTIGMATISM - REGULAR Active Condition DoD Retinal Telangiectasia Active Condition DoD visit for: issue repeat prescription for medication Inactive Condition DoD SINUSITIS ACUTE Inactive Condition DoD DIABETES MELLITUS Active Condition DoD SKIN DISORDERS Inactive Condition DoD Serology Prostate-specific Antigen (PSA) Elevated Active Condition DoD DERMATOPHYTOSIS TINEA CRURIS Active Condition DoD CATARACT SENILE BOTH EYES Active Condition DoD PRESBYOPIA Active Condition DoD ASTIGMATISM Active Condition DoD REFRACTIVE ERROR - HYPERMETROPIA Active Condition DoD REFRACTIVE ERROR - MYOPIA Active Condition DoD 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 DoD joint pain, localized in the elbow Inactive Condition DoD DIABETES MELLITUS TYPE 2 Active Condition DoD visit for: administrative purpose Inactive Condition DoD lightheadedness Inactive Condition DoD joint stiffness of the shoulder Inactive Condition DoD HYPERTENSION (SYSTEMIC) Active Condition DoD TESTICULAR NEOPLASM Active Condition Do D ESSENTIAL HYPERTENSION Active Condition DoD Other Physical Therapy Active Condition DoD chest pain or discomfort Active Condition DoD HERNIATED DISC (C5 - C6) Active Condition DoD chest pain or discomfort reported as discomfort Inactive Condition DoD CERVICALGIA Active Condition DoD Laboratory Studies Active Condition DoD OBESITY Active Condition OBESITY RT EXCESSIVE ENERGY INTAKE AEB HIS ABOVE NORMATIVE STANDARD BMI FOR AGE AND GENDER. DoD Patient Education Diabetes Dietary Counseling Active Condition Believe pt has a better understanding of how to eat healthfully and he will begin to incorporate today's recommendations into his diet. DoD HYPERLIPIDEMIA Active Condition ELEVA SAWYER LIPIDS RT OBESITY AND EXCESSIVE FAT INTAKE AEB HIS ELEVATED TOTAL AND LDL CHOLESTEROL. DoD IMPAIRED FASTING GLUCOSE Active Condition ALTERED GLUCOSE RT OBESITY AEB HIS ELEVATED FBG. DoD NORMAL ROUTINE HISTORY AND PHYSICAL ADULT (18-65) Inactive Condition PE WNL; pt taug ht self testicular exam no urinary symptoms at this time DoD visit for: laboratory Inactive Condition entered per pt request for physical DoD SEBORRHEIC KERATOSIS Active Condition cyrotherapy on right mid flank and right posterior arm x 2 freeze thaw cycles; pt reassured benign DoD ACTINIC KERATOSIS Inactive Condition DoD abdominal pain in multiple locations Active Condition Unclear e tiology. Report of virtual colonoscopy reviewed, which does indeed comment on a small umbilical hernia w/fat as well as a small L inguinal hernia, neither of which were appreciated on my physical exam today. Certainly these (and most likely, if DoD ACROCHORDON Active Condition follow u p as needed DoD skin: a rash [as Sx] Active Condition bland soaps, no scratching, emollient cream and elidel as needed. Follow up if sx's worsen or don't resolve. DoD visit for: screening malignant neoplasm colon Inactive Condition referred for eval and treatment DoD Preventive Medicine Estab Patient Checkup Adult 40-64 Inactive Condition Need to work on diet and eercise and repeat lipid lab in 4 months DoD VIRAL SYNDROME Inactive Condition take NSAIDS/tylenol; increase PO fluids and good hand washingletter for work given; pt to go back to work or Sunday DoD Blood Pressure Isolated Elevated Inactive Condition monitor an d f/u > 130/80 DoD Diagnosis: ICD-10-CM Z00.00 Encntr for general adult medical exam w/o abnormal findings Active Diagnosis [facility] Diagnosis: ICD-10-CM H90.A31 Mix cndct/snrl hear loss,uni,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 Active Diagnosis [facility] Medications Combined list of outpatient medications from Department of Defense and Veterans Affairs facilities.Medications provided include 1) outpatient medications from the last 15 months, and 2) patient-reported medications. Medication Details Route Status Patient Instructions Prescription Expires Prescription Number Last Dispense Date Ordering Provider Order Date Order Qty Source amLODIPine 5 mg tablet = 1 tab(s), Oral, # 90 EA, 0 total refill(s ), Hard Stop Oral (given by mouth) Discont inued 06/09/2024 4 2023 90.0 Ambulat ory Pharmac y amLODIPine 5 mg tablet = 1 tab(s), Oral, Daily, # 90 EA, 0 total [...] DAY ORAL ACTIVE BEAR FERNANDEZ MA 2016 [facility] aspirin EC 81 mg tablet = 1 tab(s), Oral, Daily, # 90 EA, 1 total refill(s ), Hard Stop Oral (given by mouth) Ordered 06/09/2025 5 2024 90.0 Ambulat ory Pharmac y aspirin EC 81 mg tablet = 1 tab(s), Oral, Daily, # 90 [...] e or use exactly as directed . 09/11/2024 [id number] 4 2023 90 [facility] Travis OLIVEROS ([facility] cefdinir 300 mg capsule = 1 cap(s), Oral, every 12 hr, # 20 EA, 0 total refill(s ), Hard Stop Oral (given by mouth) Complet ed 03/28/2024 4 2023 20.0 Ambulat ory Pharmac y CETIRIZINE HCL 10MG TAB TAKE ONE TABLET BY MOUTH ONCE A DAY ORAL ACTIVE NNAMDI AUSTIN 2017 [facility] CIPROFLOXAC IN HCL (CIPROFLOXA TORI HCL), 500MG, TABLET, ORAL, [employer], 100 ea. BOTTLE Active [id number] 4 2023 14 Pharmac y Data Transac [...] AT BEDTIME ORAL ACTIVE HUMA LIRIANO 2023 [facility] ECONAZOLE NITRATE (ECONAZOLE NITRATE), 1%, CREAM(GM), TOPICAL, [employer] [place], 85 g TUBE Cancele d [id number] : 2023 0 Pharmac y Data Transac tion Service Facilit y ECONAZOLE NITRATE 1% CREAM,TOP APPLY THIN FILM TO AFFECTED AREA(S) ONCE A DAY TOPICA L ACTIVE HUMA LIRIANO Dulce 2023 [facility] ESOMEPRAZOL E 20MG (BASE) CAP,EC TAKE 1 CAPSULE BY MOUTH EVERY MORNING BEFORE A MEAL ORAL ACTIVE NNAMDI [place]USTIN 2017 [facility] famotidine 10 mg tablet = 1 tab(s), Oral, Daily, # 90 EA, 1 total refill(s ), Soft Stop Oral (given by mouth) Ordered 5 2024 90.0 Ambulat ory Pharmac y FLUoxetine 20 mg capsule = 1 cap(s), Oral, Daily, # 90 EA, 1 total refill(s ), Hard Stop Oral (given by mouth) Ordered 03/17/2025 4 2023 90.0 Ambulat ory Pharmac y FLUOXETINE HCL 20MG CAP TAKE 1 CAPSULE BY MOUTH EVERY MORNING ORAL ACTIVE HUMA LIRIANO 2023 [facility] folic acid 1 mg tablet See Instruct ions, Oral, Daily, # 90 EA, 3 total refill(s ), Hard Stop Oral (given by mouth) Complet ed 02/14/2024 4 2023 90.0 Ambulat ory Pharmac y folic acid 1 mg tablet = 1 tab(s), Oral, Daily, # 90 [...] BY MOUTH ONCE A DAY ORAL ACTIVE JEFFREY SANTIZOVALERYBEARDUNCAN SCOTT 2016 [facility] GOLIMUMAB 100MG/ML INJ SMARTJECT INJECT 100MG/1M L UNDER THE SKIN ONE-TIME SUBCUT ANEOUS ACTIVE HUMA LIRIANO Dulce 2023 [facility] HYDROCHLORO THIAZIDE 12.5MG/IRBE SARTAN 300MG TAB TAKE ONE TABLET BY MOUTH ONCE A DAY ORAL ACTIVE HUMA LIRIANO 2023 [facility] hydrochloro thiazide-ir besartan 12.5 mg-300 mg [...] Pharmac y hydroxychlo roquine 200 mg tablet = 1 tab(s), Oral, BID, # 180 EA, 1 total [...] A DAY ORAL ACTIVE NNAMDI AUSTIN 2017 [facility] ipratropium 21 mcg/inh nasal spray [30mL] [...] THIAZIDE (IRBESARTAN /HYDROCHLOR OTHIAZIDE), 300-12.5MG, TABLET, ORAL, [employer]ARMA, 30 ea. BOTTLE Active [id number] 4 2023 90 Pharmac y Data Transac tion Service Facilit y metHOTREXat e (U/D) 2.5 MG ORAL TAB Do not drink alcohol. Avoid exposure to sun.Take or use exactly as directed .Obtain advice for OTCs.Do not take if . 08/14/2024 [id number] 4 2023 120 [facility] Travis OLIVEROS ([facility] methotrexat e 2.5 mg tablet See Instruct [...] EVERY WEEK ORAL ACTIVE HUMA LIRIANO 2023 [facility] METRONIDAZO LE (metronidaz ole), 375 MG, CAPSULE, ORAL, ALEMB[employer] PHARMAC, 50 ea. BOTTLE Active [id number] 4 2023 14 Pharmac y Data Transac tion Service Facilit y omeprazole DR 20 mg capsule = 1 cap(s), Oral, Daily, # 90 EA, 1 total refill(s ), Soft Stop Oral (given by mouth) Ordered 5 2024 90.0 Ambulat ory Pharmac y omeprazole DR 40 mg capsule = 1 cap(s), Oral, Daily, # 90 EA, 0 total refill(s ), Hard Stop Oral (given by mouth) Discont inued 09/02/2024 5 2024 90.0 Ambulat ory Pharmac y omeprazole DR 40 mg capsule See Instruct ions, # 90 EA, 0 total refill(s ), Hard Stop Discont inued 06/30/2024 4 2024 90.0 Ambulat ory Pharmac y omeprazole DR 40 mg capsule = 1 cap(s), Oral, Daily, # 90 EA, 0 total refill(s ), Hard Stop Oral (given by mouth) Discont inued 06/09/2024 4 2023 90.0 Ambulat ory Pharmac y omeprazole DR 40 mg capsule = 1 cap(s), Oral, Daily, # 90 EA, 1 total refill(s ), Soft Stop Oral (given by mouth) Ordered 5 2024 90.0 Ambulat ory Pharmac y rosuvastati n (U/D) 10 MG ORAL TAB Do not take with milk, antacids , or iron.Dwayne e or use exactly as directed .Do not take if . 09/11/2024 [id number] 4 2023 90 [facility] Travis OLIVEROS ([facility]) rosuvastati n 10 mg tablet = 1 tab(s), Oral, Daily, # 90 [...] Pharmac y rosuvastati n 10 mg tablet = 1 tab(s), Oral, Daily, # 90 EA, 1 total refill(s ), Soft Stop Oral (given by mouth) Ordered 5 2024 90.0 Ambulat ory Pharmac y ROSUVASTATI N CA 20MG TAB TAKE ONE-HALF TABLET BY MOUTH EVERY EVENING ORAL ACTIVE HUMA LIRIANO 2023 [facility] sildenafil 100 mg tablet = 1 tab(s), Oral, Daily, # 30 EA, 0 total [...] ory Pharmac y traZODone 50 mg tablet = 1 tab(s), Oral, every day at bedtime, # 30 [...] Reported Comments Source NO OUTPUT FOR NCID [id number] Drug allergy (disorder) active 01/31/2008 [facility] Travis OLIVEROS ([facility]) Immunizations Combined list of available immunizations from the Department of Defense and Veterans Affairs facilities. 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 Comments Source PNEUMOCOCCAL CONJUGATE PCV20, POLYSACCHARID E [id number] CONJUGATE, ADJUVANT, PF 2023 BO[place] LEFT DELTO ID [id number] 216 complet ed [facility] TDAP 2023 [place] RIGHT DELTO ID [id number] 115 complet ed [facility] AT [facility] COVID-19 (MODERNA), MRNA, LNP-S, PF, 50 MCG/0.5 ML (AGES 12+ YEARS) 2022 312 complet ed HISTORICA L INFORMATI ON - FROM PATIENT'S WRITTEN RECORD, [facility] INFLUENZA, UNSPECIFIED FORMULATION 2022 88 complet ed HISTORICA L INFORMATI ON - FROM PATIENT'S WRITTEN RECORD, [facility] RSV, RECOMBINANT, PROTEIN SUBUNIT RSVPREF, ADJUVANT RECONSTITUTED , 0.5 ML, PF 2022 303 complet ed HISTORICA L INFORMATI ON - FROM PATIENT'S WRITTEN RECORD, [facility] INFLUENZA, UNSPECIFIED FORMULATION 2022 88 complet ed Booster for Series, HISTORICA L INFORMATI ON - FROM PATIENT'S RECALL, [facility] ZOSTER RECOMBINANT 2 2022 187 complet ed HISTORICA L INFORMATI ON - FROM PATIENT'S WRITTEN RECORD, [facility] ZOSTER RECOMBINANT 1 2021 187 complet ed HISTORICA L INFORMATI ON - FROM PATIENT'S WRITTEN RECORD, [facility] COVID-19 (MODERNA), MRNA, LNP-S, BIVALENT, PF, 50 MCG/0.5 ML OR 25MCG/0.25 ML DOSE 1 2021 229 complet ed HISTORICA L INFORMATI ON - FROM PATIENT'S WRITTEN RECORD, [facility] COVID-19 (MODERNA), MRNA, LNP-S, PF, 100 MCG/0.5ML DOSE OR 50 MCG/0.25ML DOSE 2021 207 complet ed HISTORICA L INFORMATI ON - FROM PATIENT'S WRITTEN RECORD, [facility] COVID-19, mRNA, LNP-S, PF, 100 mcg or 50 mcg dose 2021 RUDD, Moderna US, Inc. (MOD) Not Given COVID-19, mRNA, LNP-S, PF, 100 mcg or 50 mcg dose DoD influenza, high-dose, quadrivalent 2020 SHUN, () Not Given influenza , high-dose , quadrival ent DoD COVID-19 (MODERNA), MRNA, LNP-S, PF, 100 MCG/0.5ML DOSE OR 50 MCG/0.25ML DOSE 3 2020 207 complet ed HISTORICA L INFORMATI ON - FROM PATIENT'S WRITTEN RECORD, [facility] COVID-19, mRNA, LNP-S, PF, 100 mcg or 50 mcg dose 2020 RUDD, Moderna US, [employer]. (MOD) Not Given COVID-19, mRNA, LNP-S, PF, 100 mcg or 50 mcg dose DoD COVID-19 (MODERNA), MRNA, LNP-S, PF, 100 MCG/0.5ML DOSE OR 50 MCG/0.25ML DOSE 2 2020 207 complet ed HISTORICA L INFORMATI ON - FROM PATIENT'S WRITTEN RECORD, [facility] COVID-19 (MODERNA), MRNA, LNP-S, PF, 100 MCG/0.5ML DOSE OR 50 MCG/0.25ML DOSE 1 2020 207 complet ed HISTORICA L INFORMATI ON - FROM PATIENT'S WRITTEN RECORD, [facility] N pneumococcal polysaccharid e, 23 valent 2019 Jennifer haas Arm [id number] Merck & Company Inc complet ed pneumococ trevor polysacch aride, 23 valent 05/18/20 Given Ambulat ory Pharmac y PNEUMOCOCCAL POLYSACCHARID E PPV23 2019 33 complet ed HISTORICA L INFORMATI ON - FROM PATIENT'S WRITTEN RECORD, [facility] N pneumococcal polysaccharid e vaccine, 23 valent 1 2019 Unknown, Provider [id number] Merck (MSD) complet ed pneumococ trevor polysacch aride vaccine, 23 valent DoD influenza virus vaccine, unspecified 2019 TRANSCR IBED 88 complet ed influenza virus vaccine, unspecifi ed 02/19/20 Given Ambulat ory Pharmac y Influenza, injectable, MDCK, preservative free, quadrivalent 2019 ALUL, () Not Given Influenza , injectabl e, MDCK, preservat ezio free, quadrival ent DoD influenza virus vaccine, unspecified formulation 1 2019 [...] QUADRIVALENT, PRESERVATIVE FREE 2018 150 complet ed 02, Partner: [facility]. Administe red by: RIMA ALUL (COA=[phone]). Partner 7 Lot#: [id number] Mfr: GlaxoSmit hKline; Dosage: 0.5 [facility] Influenza, seasonal, injectable 1 2018 Unknown, Provider 141 Transcribed (TRS) complet ed Influenza , seasonal, injectabl e DoD influenza, injectable, quadrivalent- pf 2017 zzLef t Arm [id number] [employer] complet ed influenza , injectabl e, quadrival ent-pf 04/11/18 Given Ambulat ory Pharmac y Influenza, injectable, quadrivalent, preservative free 1 2017 Unknown, Provider [id number] 150 Se[employer] (SEQ) complet ed Influenza , injectabl e, quadrival ent, preservat ezio free DoD Influenza, inj, MDCK, quadrivalent- pf 2016 zzLef t Arm [id number] 171 [employer] complet ed Influenza , inj, MDCK, quadrival ent-pf 05/08/17 Given Ambulat ory Pharmac y Influenza, injectable, Madin Purcell Canine Kidney, preservative free, quadrivalent 1 2016 Unknown, Provider [id number] 171 [employer] (SEQ) complet ed Influenza , injectabl e, Madin Purcell Canine Kidney, preservat ezio free, quadrival ent DoD ZOSTER LIVE 2016 121 complet ed [facility] influenza, seasonal, injectable-pf 2015 zzLef t Arm [id number] 140 Se[employer] complet ed influenza , seasonal, injectabl e-pf 03/13/16 Given Ambulat ory Pharmac y Influenza, seasonal, injectable, preservative free 1 2015 Unknown, Provider [id number] [employer] (SEQ) complet ed Influenza , seasonal, injectabl e, preservat ezio free DoD NOVEL INFLUENZA-H1N 1-09 1 2014 127 complet ed HISTORICA L INFORMATI ON - FROM OTHER REGISTRY, [facility] PNEUMOCOCCAL POLYSACCHARID E PPV23 1 2014 33 complet ed HISTORICA L INFORMATI ON - FROM OTHER REGISTRY, [facility] pneumococcal polysaccharid e, 23 valent 2014 zzLef t Arm [id number] 33 Merck & Company Inc complet ed pneumococ trevor polysacch aride, 23 valent 03/15/15 Given Ambulat ory Pharmac y influenza, seasonal, injectable-pf 2014 zzLef t Arm [id number] 140 CSL Behring complet ed influenza , seasonal, injectabl e-pf 03/15/15 Given Ambulat ory Pharmac y PNEUMOCOCCAL POLYSACCHARID E PPV23 2014 33 complet ed [facility] pneumococcal polysaccharid e vaccine, 23 valent 1 2014 Unknown, Provider [id number] 33 Merck (MSD) complet ed pneumococ trevor polysacch aride vaccine, 23 valent DoD Influenza, seasonal, injectable, preservative free 1 2014 Unknown, Provider [id number] 140 [employer] (CSL) complet ed Influenza , seasonal, injectabl e, preservat ezio free DoD Influenza, seasonal, injectable 2013 TATIANA SPRINGER () Not Given Influenza , seasonal, injectabl e DoD tetanus, diphtheria, acellular pertu is 2013 TRANSCR IBED 115 complet ed tetanus, diphtheri a, acellular pertussis 08/28/13 Given Ambulat ory Pharmac y TDAP 2013 115 complet ed HISTORICA L INFORMATI ON - FROM PATIENT'S WRITTEN RECORD, [facility] tetanus toxoid, reduced diphtheria toxoid, and acellular pertu is vaccine, adsorbed 1 2013 Unknown, Provider 115 Transcribed (TRS) complet ed tetanus toxoid, reduced diphtheri a toxoid, and acellular pertussis vaccine, adsorbed DoD zoster vaccine live 2011 zzL t Arm [id number] [employer] complet ed zoster vaccine live 05/24/12 Given Ambulat ory Pharmac y zoster vaccine, live 1 2011 Unknown, Provider [id number] 121 Merck (MSD) complet ed zoster vaccine, live DoD influenza, seasonal, injectable 2010 [facility] [id number] 141 sanofi pasteur complet ed influenza , seasonal, injectabl e 03/17/11 Given Ambulat ory Pharmac y tetanus, diphtheria, acellular pertu is 2010 zzLef t Arm [id number] 115 Glax[employer]SmithK[employer] ne complet ed tetanus, diphtheri a, acellular pertussis 03/17/11 Given Ambulat ory Pharmac y tetanus toxoid, reduced diphtheria toxoid, and acellular pertu is vaccine, adsorbed 1 2010 Unknown, Provider [id number] 115 [employer] (SKB) complet ed tetanus toxoid, reduced diphtheri a toxoid, and acellular pertussis vaccine, adsorbed DoD Influenza, seasonal, injectable 3 2010 Unknown, Provider [id number] 141 Sanofi Pasteur (PMC) complet ed Influenza , seasonal, injectabl e DoD influenza virus vaccine, whole virus 1998 [id number] 16 [facility] complet ed influenza virus vaccine, whole virus 04/09/99 Given Ambulat ory Pharmac y influenza virus vaccine, whole virus 1 1998 Unknown, Provider [id number] Andreia (CON) complet ed influenza virus vaccine, whole virus DoD influenza virus vaccine, whole virus [id number] [employer] complet ed influenza virus vaccine, whole virus 08/03/98 Given Ambulat ory Pharmac y influenza virus vaccine, whole virus 1 1998 Unknown, Provider [id number] 16 Andreia (CON) complet ed influenza virus vaccine, whole [...] Source SYSTOLIC BLOOD PRESSURE 138 02/20/2024 08:14:26 [facility] DIASTOLIC BLOOD PRESSURE 78 02/20/2024 08:14:26 [facility] PULSE OXIMETRY 96 02/20/2024 08:14:26 [facility] WEIGHT 263.8 02/20/2024 08:14:26 . [facility] BMI 36 kg/m2 02/20/2024 08:14:26 [facility] PAIN 3 02/20/2024 08:14:26 [facility] HEIGHT 72 02/20/2024 08:14:26 [facility] TEMPERATURE 97.8 02/20/2024 08:14:26 [facility] PULSE 76 02/20/2024 08:14:26 . [facility] RESPIRATION 20 02/20/2024 08:14:26 [facility] Encounters Combined list of: 1) Encounters from Department of Veterans Affairs facilities going backup to the last 18 months, not all VA inpatient encounters are included; 2) Encounters from the Department of Defense facilities going backup to 280 months. Location Location Details Encounter Type Encounter Number Reason For Visit Attending Provider ADM Date DC Date Status Disposition Source [address] [place] [address] [place] [facility] OUTPATIENT [id number] scaly spot on ear TEE BYRNE 12/12 Released w/o Limitations [address] [place] [address])(F amily Practic e Non-GME FHI2) [address] [place], [place] [address] [facility] OUTPATIENT [id number] persist ant cough TEE BYRNE 09/15 Released w/o Limitations [address] [place], [place] [address] [facility] [facility] [place] Non[facility]ME [facility]2) [address] [place], [place] [address] [facility] OUTPATIENT [id number] routine physica l check up TEE BYRNE 10/05 Released w/o Limitations [address] [place], [place] [address] [facility] [place] [facility] [place] Non-GME FHI2) [address] [place] [address])([facility] Non-GME FHI2) OUTPATIENT [id number] Lt Eye - C/O a growth or spot? ANISA PACE 04/13 Released w/o Limitations [address] [place] [address])(F amily Practic e Non-GME FHI2) [address] [place] [address])([facility]) OUTPATIENT [id number] stomach pain both sides WALLACE BEGUM 06/05 Released w/o Limitations [address] [place] [address])(F amily Practic e Non-GME FHI2) [address] [place] [address])([facility] OUTPATIENT [id number] wants derm referal for skin lesions ' GALO ANSARI 01/15 Released w/o Limitations [address] [place], [place] [address] [facility] Pract[facility] Non-GME FHI2) [address] [place] [address] Travis [place] [facility] OUTPATIENT [id number] adult physica l [phone]# GALO ANSARI 02/08 Released w/o Limitations [address] [place], [place] [address] [facility] [place] Pract[facility] Non-GME FHI2) [address] [place] [address] Travis PEREZB ([facility] OUTPATIENT [id number] fever, chills [phone] GALO ANSARI 08/06 Released w/o Limitations [address] [place] [address] Travis PEREZB ([facility]F amily Practic e Non-GME FHI2) [address] [place] [address] Travis PEREZB [facility] OUTPATIENT [id number] impaire d fasting glucose TONA KENDRICK 08/12 Released w/o Limitations [address] [place] [address] Travis PEREZB [facility]N utritio nal Medicin e) [address] [place] [address] Travis PEREZB [facility]beth Practice Non-GME FHI2) OUTPATIENT [id number] lesions on face spreadi ng GALO ANSARI 10/22 Released w/o Limitations [address] [place] [address] Travis PEREZB ([facility]F amily Practic e Non-GME FHI2) [address] [place] [address] Travis [facility] lisbeth Practice Non-GME FHI2) TELE CONSULT [id number] Lab results -- MARY ELLEN Winston 01/[address] [place] [address] Travis [facility]B [facility]F amily Practic e Non-GME FHI2) [address] [place] [address] Travis [facility] lisbeth Practice Non-GME FHI2) OUTPATIENT [id number] Eval back pain [phone] wk GALO ANSARI 07/21 Released w/o Limitations [address] [place] [address] Travis [facility]ZB [facility]F amily Practic e Non-GME FHI2) [address] [place] [address] [employer] ([facility])(Phy sical Therapy) OUTPATIENT [id number] right arm pain MARIA E HARPER 08/04 Released w/o Limitations [address] [place] [address] [employer] ([facility])(P hysical Therapy ) [address] [place] [address] [employer] ([facility])(Sco tt [facility] Team 4) TELE CONSULT [id number] f/u labs and GALO Salazar 08/[address] [place] [address] Travis TODDB ([facility])(S cott [facility] Team 4) [address] [place] [address] Travis TODDB [facility]Phy sical Therapy) OUTPATIENT [id number] MC MOLINA 08/11 Released w/o Limitations [employer] ([facility])(P hysical Therapy ) [employer] ([facility])(Phy sical Therapy) OUTPATIENT [id number] JUAN MCNEIL 08/13 Released w/o Limitations [employer] ([facility])(P hysical Therapy ) [employer] ([facility])(Phy sical Therapy) OUTPATIENT [id number] MC MOLINA 08/18 Released w/o Limitations [employer] ([facility])(P hysical Therapy ) [employer] ([facility])(Phy sical Therapy) OUTPATIENT [id number] MC MOLINA 08/20 Released w/o Limitations [employer] ([facility])(P hysical Therapy ) [employer] ([facility])(Phy sical Therapy) OUTPATIENT [id number] JUAN MCNEIL 08/24 Released w/o Limitations [employer] ([facility])(P hysical Therapy ) [employer] ([facility])(Phy sical Therapy) OUTPATIENT [id number] MC MOLINA 08/26 Released w/o Limitations [employer] ([facility]P hysical Therapy ) [employer] ([facility])(Phy sical Therapy) OUTPATIENT [id number] MARIA E HARPER 09/01 Released w/o Limitations [employer] ([facility]P hysical Therapy ) [employer] ([facility])(Phy sical Therapy) OUTPATIENT [id number] MC MOLINA 09/03 Released w/o Limitations [employer] ([facility])(P hysical Therapy ) [employer] ([facility])(Phy sical Therapy) OUTPATIENT [id number] ARELY CESAR 09/16 Released w/o Limitations [employer] ([facility])(P hysical Therapy ) [employer] ([facility])(Phy sical Therapy) OUTPATIENT [id number] MC MOLINA 09/21 Released w/o Limitations [employer] ([facility])(P hysical Therapy ) [address] [place] [address] [employer] ([facility])(Phy sical Therapy) OUTPATIENT [id number] MCNEILKOBY LOPEZAIMEE Krishna 09/23 Released w/o Limitations [employer] ([facility])(P hysical Therapy ) [address] [place] [address] [employer] ([facility])(Phy sical Therapy) OUTPATIENT [id number] MC MOLINA 09/28 Released w/o Limitations [employer] ([facility])(P hysical Therapy ) [address] [place] [address] [employer] ([facility])(Phy sical Therapy) OUTPATIENT [id number] MARIA E HARPER 09/30 Released w/o Limitations [employer] Travis P[employer]ZB ([facility])(P hysical Therapy ) [address] [place] [address] Trvais PEREZB ([facility])([facility] Team 4) OUTPATIENT [id number] eval lump L testicl e/discu ss reffera l [id number] cell GALO ANSARI 12/02 Released w/o Limitations [employer] ([facility])([facility] Team 4) [address] [place] [address] Travis PEREZB ([facility])(Fam lisbeth Med Tm B Non-AD BCC) TELE CONSULT [id number] Exchang e call BP questio ns MC BEGUM 12/[address] [place] [address] Travis PEREZB ([facility])(F amily Med Tm B Non-AD BCC) [address] [place] [address] [employer] ([facility])([facility] Team 4) OUTPATIENT [id number] follow up for blood pressur e [id number] GALO ANSARI 12/29 Released w/o Limitations [address] [place] [address] Group [employer] ([facility])([facility] Team 4) [address] [place] [address] [employer] [facility] Team 4) OUTPATIENT [id number] F/U BP and cholest deborah [phone] KRISTY PURDY 03/09 Released w/o Limitations [address] [place] [address] Group [employer] ([facility] Team 4) [address] [place] [address] Group [employer] ([facility])(Fam lisbeth Med Tm B Non-AD BCC) TELE CONSULT [id number] Lab results -- MARY ELLEN Mays 03/[address] [place] [address] Group [employer] B ([facility])(F amily Med Tm B Non-AD BCC) [address] [place] [address] [employer] [facility] Team 4) TELE CONSULT [id number] feels light headed taking new meds. AZEB GRACIA 03/[address] [place] [address] Group [employer] B [facility] Team 4) [address] [place] [address] Travis B [facility] Team 4) OUTPATIENT [id number] lab f/u-med refill KRISTY PURDY 04/23 Released w/o Limitations [address] [place] [address] [employer] [facility] Team 4) [address] [place] [address] Travis B [facility] Team 4) TELE CONSULT [id number] Per AZEB Watson 05/[address] [place] [address] Travis B [facility] Team 4) [address] [place] [address] Travis B [facility] Team 4) TELE CONSULT [id number] Rad Results KRISTY PURDY 05/[address] [place] [address] Travis B [facility] Team 4) [address] [place], [place] [address]B [facility] Team 4) OUTPATIENT [id number] f/u for medicat ion [phone] KRISTY PURDY 07/12 Released w/o Limitations [address] [place] [address] [employer] [facility] Team 4) [address] [place] [address] [employer] [facility] Team 4) TELE CONSULT [id number] Med Refill - AZEB Woo 08/[address] [place] [address] [employer] [facility] Team 4) [address] [place], [place] [address]B [facility]War rior Op Med Cln Tm A Ad) OUTPATIENT [id number] f/u Hyperte nsion [phone] KRISTY PURDY 10/08 Released w/o Limitations [address] [place] [address] Travis [facility])(W arrior Op Med Cln Tm A Ad) [address] [place] [address] Travis [facility])(War rior Op Med Cln Tm A Ad) TELE CONSULT [id number] Disease Mgt note. MJ RENDON 10/[address] [place] [address])(W arrior Op Med Cln Tm A Ad) [address] [place] [address])(Opt ometry) OUTPATIENT [id number] diabete s NIKO TAYLOR W 10/25 Released w/o Limitations [address] [place] [address] Travis [facility])(O ptometr y) [address] [place] [address])(Sco tt [facility] Team 3) OUTPATIENT [id number] Rash [phone] KELLI HERNADEZ 12/15 Released w/o Limitations [address] [place] [address])(S cott [facility] Team 3) [address] [place] [address])(War rior Op Med Cln Tm A Ad) TELE CONSULT [id number] Patient to have urology referra l based on labs from December 2009 AZEB GRACIA 01/10 Referred for Appointment [address] [place] [address])(W arrior Op Med Cln Tm A Ad) [address] [place] [address])(War rior Op Med Cln Tm A Ad) OUTPATIENT [id number] F/U on lab work [phone] KRISTY PURDY 01/21 Released w/o Limitations [address] [place] [address])(W arrior Op Med Cln Tm A Ad) [address] [place] [address] Travis [facility])(War rior Op Med Cln Tm A Ad) TELE CONSULT [id number] Patient lab reviewe d: AZEB GRACIA 01/[address] [place] [address])(W arrior Op Med Cln Tm A Ad) [address] [place] [address])(War rior Op Med Cln Tm A Ad) TELE CONSULT [id number] Pt wants a new referra l for Derm. His contact is [phone]. MJ RENDON 02/14 Referred for Appointment [employer] [facility])(W arrior Op Med Cln Tm A Ad) [facility])(War rior Op Med Cln Tm A Ad) TELE CONSULT [id number] Rajwinder -bry -did not mention what it regaashish s-[phone] EJR AZEB GRACIA 03/02 [facility])(W arrior Op Med Cln Tm A Ad) [address] [place] [address])(War rior Op Med Cln Tm A Ad) TELE CONSULT [id number] F/U Disease Mgt/HX of T2DM/HL P/HTN-P CM ISABELLA Purdy MJ RENDON 03/03 Referred for Appointment [address] [place] [address] Group [facility])(W arrior Op Med Cln Tm A Ad) [address] [place] [address])( rior Op Med Cln Tm A Ad) OUTPATIENT [id number] poss sinus infecti on RAJWINDERKRISTY Dulce 04/08 Released w/o Limitations [address] [place] [address] Group [facility])(W arrior Op Med Cln Tm A Ad) [address] [place] [address])(Sco tt Disease Managemen t) TELE CONSULT [id number] [facility] PA Rajwinder / calling regardi ng lab results and if needs meds estela paez [phone] MJ RENDON 05/03 Referred for Appointment [facility])(S cott Disease Managem ent) [facility] Medical [facility])(War rior Op Med Cln Tm A Ad) TELE CONSULT [id number] lab f/u AZEB GRACIA 06/01 [facility])(W arrior Op Med Cln Tm A Ad) [address] [place] [address])(Sco tt Disease Managemen t) TELE CONSULT [id number] Due f/u apt in Jul 29 w fasting labs/PC M PA Rajwinder MJ RENDON 07/11 Referred for Appointment [facility])(S cott Disease Managem ent) [address] [place] [address] [facility]War rior Op Med Cln Tm A Ad) OUTPATIENT [id number] f/u blood pressur e [phone] KRISTY PURDY 08/04 Released w/o Limitations [employer]by ([facility])(W arrior Op Med Cln Tm A Ad) [facility] [employer] ([facility])(War rior Op Med Cln Tm A Ad) OUTPATIENT [id number] f/u blood pressur e - [phone] RAJWINDER KRISTY L 08/29 Released w/o Limitations [facility] [employer] ([facility]W arrior Op Med Cln Tm A Ad) [facility]Sco tt Disease Managemen t) TELE CONSULT [id number] needs f/u--PC MJ Jean 09/02 [facility] [employer] ([facility])(S cott Disease Managem ent) [facility] Robby [facility]War rior Op Med Cln Tm A Ad) OUTPATIENT [id number] fu diabete s KRISTY PURDY 10/07 Released w/o Limitations [facility] [employer] ([facility])(W arrior Op Med Cln Tm A Ad) [facility]ZRobby [facility]Neo tt Disease Managemen t) TELE CONSULT [id number] Due annual Diabeti c Eye exam JUSTICE MJ 10/10 [facility] [employer] OLIVEROS ([facility])(S cott Disease Managem ent) [facility] [employer] [facility]by [facility]Opt ometry) OUTPATIENT [id number] Needs annual Diabeti c Eye Exam CARLOS ATWOOD 10/14 Released w/o Limitations [facility] [employer] ([facility])(O ptometr y) [facility]Neo tt Internal Medicine Tm) TELE CONSULT [id number] ? Lab order - Ingram - - tsg ABDULAZIZ SONG 01/18 [facility]S cott Interna l Medicin e Tm) [facility] [employer] [facility]Sco tt Internal Medicine Tm) OUTPATIENT [id number] medicat ions TEE INGRAM W 01/30 Released w/o Limitations [address] [place] [address] Travis [facility])(S cott Interna l Medicin e Tm) [address] [place] [address] [facility])([facility] Internal Medicine ) TELE CONSULT [id number] Referra l needed/ Ingram/fxs ABDULAZIZ SONG E 02/[address] [place] [address] Travis [facility])(S cott Interna l Medicin e Tm) [address] [place] [address] Travis [facility])([facility] Internal Medicine ) OUTPATIENT [id number] pain above groin on left side/co mes and goes [id number] JOHANDARLYN 03/13 Released w/o Limitations [address] [place] [address] Travis [facility])(S cott Interna l Medicin e Tm) [address] [place] [address] Travis [facility])([facility] Internal Medicine ) TELE CONSULT [id number] pls send ltr MARY ELLEN GEIGER 03/15 Referred for Appointment [address] [place] [address] Travis [facility])(S cott Interna l Medicin e Tm) [address] [place] [address] Travis [facility])([facility] Internal Medicine ) TELE CONSULT [id number] wants the OK to resume Metform in Ingram cad tlt CHELY PACE 03/[address] [place] [address] Travis [facility])(S cott Interna l Medicin e Tm) [address] [place] [address] Travis [facility])([facility] Internal Medicine ) TELE CONSULT [id number] regardi ng MRI and surgery Ingram cad tlt CHELY PACE 03/[address] [place] [address] Group [facility])(S cott Interna l Medicin e Tm) [address] [place] [address] Travis Robby [facility] Internal Medicine ) OUTPATIENT [id number] f/u Back Pain and MRI results TEE INGRAM W 03/31 Released w/o Limitations [address] [place] [address] Travis [facility]OS [facility]S cott Interna l Medicin e Tm) [address] [place] [address] Travis Robby [facility] Internal Medicine ) OUTPATIENT [id number] Pain in left leg [phone] TEE INGRAM 05/15 Released w/o Limitations [address] [place] [address])(S cott Interna l Medicin e Tm) [address] [place] [address])([facility] Internal Medicine ) TELE CONSULT [id number] Notes Entered by: JOSIE CORONA 26 May 2011821 ------- ------- ------- ------- -- Referra l Request /MRI request -Sarita/Jason [phone], [phone]/[id number] CHELY Ortega 05/[address] [place] [address])(S cott Interna l Medicin e Tm) [address] [place] [address])([facility] Internal Medicine ) TELE CONSULT [id number] Medicat ion renewal - Sarita - /a fter 1530 - [phone] [facility] TEE INGRAM 07/[address] [place] [address])(S cott Interna l Medicin e Tm) [address] [place] [address])([facility] Internal Medicine ) TELE CONSULT [id number] missing info on CHELY Clifton 07/[address] [place] [address])(S cott Interna l Medicin e Tm) [address] [place] [address])([facility] Internal Medicine ) TELE CONSULT [id number] Notes Entered by: LISANDRO SANTIAGO 01 Sep 2011 08 ------- ------- ------- ------- -- Med renewal /Sarita/Jason 1.7624c /CHELY Sanchez 08/[address] [place] [address])(S cott Interna l Medicin e Tm) [address] [place] [address])([facility] Internal Medicine ) OUTPATIENT [id number] 3 mo f/u addrss HCM and Chronic Med Issues (per Dr Ingram) TEE INGRAM 09/14 Released w/o Limitations [address] [place] [address])(S cott Interna l Medicin e Tm) [address] [place] [address])([facility] Internal Medicine ) TELE CONSULT [id number] Notes Entered by: BUBBA CABA 03 Oct 2011 0805 ------- ------- ------- ------- -- Med Refill ABDULAZIZ SONG 10/[address] [place] [address])(S cott Interna l Medicin e Tm) [address] [place] [address])([facility] Internal Medicine ) TELE CONSULT [id number] Notes Entered by: BUBBA CABA 13 Oct 2011 08 ------- ------- ------- ------- -- Referra cardona to CHELY Henson 10/[address] [place] [address])(S cott Interna l Medicin e Tm) [address] [place] [address])([facility] Internal Medicine ) TELE CONSULT [id number] Notes Entered by: JOSIE CORONA 06 Nov 2011 0859 ------- ------- ------- ------- -- Med refill- Sarita/314 -[phone] /CHELY Gaming 11/[address] [place] [address])(S cott Interna l Medicin e Tm) [address] [place] [address])([facility] Internal Medicine ) OUTPATIENT [id number] 3 mo f/u DM/TEE Mayberry 11/19 Released w/o Limitations [address] [place] [address])(S cott Interna l Medicin e Tm) [address] [place] [address])([facility] Internal Medicine ) TELE CONSULT [id number] Notes Entered by: YUMIKO COLLINS 08 Feb 2012 1330 ------- ------- ------- ------- -- Anelio CHELY Coyle 02/[address] [place] [address])(S cott Interna l Medicin e Tm) [address] [place] [address])([facility] Internal Medicine ) TELE CONSULT [id number] Notes Entered by: PRAVEENA COTTON 21 Feb 2012 1257 ------- ------- ------- ------- -- Referra dulce Ingram - [id number] [facility]/af er 3:[id number] [place] [address] CHELY PACE 02/[address] [place] [address])(S cott Interna l Medicin e Tm) [address] [place] [address])([facility] Internal Medicine ) OUTPATIENT [id number] headach e, problem with blood pressur e DANO RICO 03/14 Released w/o Limitations [address] [place] [address])(S cott Interna l Medicin e Tm) [address] [place] [address])([facility] Internal Medicine ) TELE CONSULT [id number] Notes Entered by: VICKI VILLA 04 Apr 2012 1120 ------- ------- ------- ------- -- Network Results -OTORHI NOLARY 03/26/12 TEE INGRAM 04/[address] [place] [address])(S cott Interna l Medicin e Tm) [address] [place] [address])([facility] Internal Medicine ) TELE CONSULT [id number] Notes Entered by: LARA FULTON 05 Apr 2012 1307 ------- ------- ------- ------- -- Network Results - UROLOGY 2 TEE INGRAM 04/[address] [place] [address])(S cott Interna l Medicin e Tm) [address] [place] [address])([facility] Internal Medicine ) OUTPATIENT [id number] medicat ion renewal s TEE INGRAM 05/13 Released w/o Limitations [address] [place] [address])(S cott Interna l Medicin e Tm) [address] [place] [address])([facility] Internal Medicine ) TELE CONSULT [id number] Notes Entered by: Erendira NICE 14 Nov 2012 07 ------- ------- ------- ------- -- Med refill/ Ingram/[phone] tile 3:30 2 days left ABDULAZIZ SONG 11/[address] [place] [address])(S cott Interna l Medicin e Tm) [address] [place] [address])([facility] Internal Medicine ) OUTPATIENT [id number] spots on right foot and wants to discuss diabete s [id number] TEE INGRAM 12/24 Released w/o Limitations [address] [place] [address])(S cott Interna l Medicin e Tm) [address] [place] [address])([facility] Disease Managemen t) TELE CONSULT [id number] Notes Entered by: FILEMON JORGE 30 Dec 2012 1520 ------- ------- ------- ------- -- Pt is a 57 y/o showing due and overdue for labs and Dilated Retinal Eye exam. FILEMON JORGE 12/[address] [place] [address])(S cott Disease Managem ent) [address] [place] [address])([facility] Internal Medicine ) TELE CONSULT [id number] Notes Entered by: LISANDRO SANTIAGO 07 Jan 2013 1549 ------- ------- ------- ------- -- Ref renewal /Ingram/31 4.457.4 203 till 1530 or cell ABDULAZIZ SONG 01/[address] [place] [address])(S cott Interna l Medicin e Tm) [address] [place] [address])(Opt ometry) OUTPATIENT [id number] annual Dilated Retinal Eye exam - GUZMAN Pink 01/14 Released w/o Limitations [address] [place] [address])(O ptometr y) [address] [place] [address])([facility] Internal Medicine Tm) TELE CONSULT [id number] Notes Entered by: CORBY SORENSEN 20 Jan 2013 0831 ------- ------- ------- ------- -- Lab results /Sarita/(David ) or Erendira)[phone] TEE INGRAM 01/[address] [place] [address])(S cott Interna l Medicin e Tm) [address] [place] [address])([facility] Internal Medicine Tm) TELE CONSULT [id number] Notes Entered by: VICKI VILLA 05 Feb 2013 1120 ------- ------- ------- ------- -- Network Results -OTORHI ROYCERYCliff MCCRACKENOGVicki 02/04/13 TEE INGRAM 02/[address] [place] [address])(S cott Interna l Medicin e Tm) [address] [place] [address])([facility] Internal Medicine Tm) TELE CONSULT [id number] Notes Entered by: GILBERT JAVIER 11 Mar 2013 1009 ------- ------- ------- ------- -- Network Results - DERMATO LOGY 03/10/13 TEE INGRAM 03/[address] [place] [address])(S cott Interna l Medicin e Tm) [address] [place] [address])([facility] Internal Medicine Tm) TELE CONSULT [id number] Notes Entered by: CORBY SORENSEN 19 Mar 2013 0955 ------- ------- ------- ------- -- Sylvia villasenor /Sarita/Dragan 8.505.0 241 MARY CARMEN CARY I 03/[address] [place] [address])(S cott Interna l Medicin e Tm) [address] [place] [address])([facility] Internal Medicine Tm) TELE CONSULT [id number] Notes Entered by: DAILY CARPIO W 09 Apr 2013 1445 ------- ------- ------- ------- -- Network Results -UROLOG Y 3 TEE INGRAM 04/[address] [place] [address])(S cott Interna l Medicin e Tm) [address] [place] [address])([facility] Internal Medicine Tm) TELE CONSULT [id number] Notes Entered by: DUNCAN GREER 05 May 2013 1353 ------- ------- ------- ------- -- Network Results -Podiat ry 02/26/13 TEE INGRAM 05/[address] [place] [address])([facility]) [address] [place] [address])([facility] ) OUTPATIENT [id number] follow up medicat ion [id number] TEE INGRAM 05/13 Released w/o Limitations [address] [place] [address])([facility]) [address] [place] [address])([facility] Tm) TELE CONSULT [id number] Notes Entered by: Erendira NICE 18 Aug 2013 1058 ------- ------- ------- ------- -- ENT referra l/Sarita/6 [phone] or [phone] CHELY PACE 08/[address] [place] [address])([facility]) [address] [place] [address])([facility] Tm) TELE CONSULT [id number] Notes Entered by: JOSIE CORONA 15 Oct 2013 0734 ------- ------- ------- ------- -- Med Refill- Sarita/618 -[phone] KEN CONWAY 10/[address] [place] [address])([facility]) [address] [place] [address] Travis [facility])([facility] ) OUTPATIENT [id number] painful sore inside mouth; painful to eat [phone] CHET BILL 10/22 Released w/o Limitations [address] [place] [address] Travis [facility])([facility]) [address] [place] [address])([facility] ) TELE CONSULT [id number] Notes Entered by: PAPITO RITTER 22 Oct 2013 1128 ------- ------- ------- ------- -- Lab and X-ray results from 4 KEN CONWAY 10/[address] [place] [address])([facility]) [address] [place] [address])([facility] ) TELE CONSULT [id number] Notes Entered by: BAO RITTER [facility] 24 Oct 2013 0747 ------- ------- ------- ------- -- Lab results from 4 CHET BILL 10/[address] [place] [address])([facility]) [address] [place] [address])([facility] ) TELE CONSULT [id number] Notes Entered by: JULIANO INGRAM 29 Oct [id number] ------- ------- ------- ------- -- Study results VIVIAN BECKER 10/29 Referred for Appointment [address] [place] [address])([facility]) [address] [place] [address])([facility] ) TELE CONSULT [id number] Notes Entered by: DOMONIQUE CHAN 17 Feb 2014 1350 ------- ------- ------- ------- -- Lab Order Request /Carlos shresthaer/50 5.0241 KEN CONWAY 02/[address] [place] [address])([facility]) [address] [place] [address])([facility] ) OUTPATIENT [id number] Lab results , annual med refills JOSE J GALLAGHER 03/16 Released w/o Limitations [address] [place] [address])([facility]) [address] [place] [address])([facility] ) TELE CONSULT [id number] Notes Entered by: CORBY SORENSEN 13 Apr 2014 1238 ------- ------- ------- ------- -- Gal referra dulce/tam 18.505. 0241 KEN CONWAY 04/[address] [place] [address])([facility]) [address] [place] [address])([facility] ) TELE CONSULT [id number] Notes Entered by: ADELAIDE EUCEDA 05 May 2014 1116 ------- ------- ------- ------- -- Network results Optomet ry 4 JOSE J GALLAGHER 05/[address] [place] [address])([facility] [address] [place] [address])([facility] ) TELE CONSULT [id number] Notes Entered by: GILMAR VENTURA 22 Jun 2014 1208 ------- ------- ------- ------- -- [facility] med request KEN CONWAY 06/[address] [place] [address])([facility]) [address] [place] [address])([facility] ) TELE CONSULT [id number] Notes Entered by: DAYNA ESPINOZA 13 Aug 2014 1540 ------- ------- ------- ------- -- Dermato tevin cardona renewal request ed by NASEEM Hua 08/13 Referred for Appointment [address] [place] [address])([facility]) [address] [place] [address])([facility] ) TELE CONSULT [id number] Notes Entered by: WALLACE REGAN 21 Sep 2014 1619 ------- ------- ------- ------- -- Network results - Pulmona ry/Slee p Medicin e 014 EUGENE SPRINGER 09/[address] [place] [address])([facility]) [address] [place] [address])([facility] ) TELE CONSULT [id number] Notes Entered by: ADELAIDE EUCEDA 23 Sep 2014 1501 ------- ------- ------- ------- -- Network results Optomet ry 4 AZEB HERNANDEZ V 09/[address] [place] [address])([facility]) [address] [place] [address])([facility] ) TELE CONSULT [id number] Notes Entered by: Cindy NICE 12 Oct 2014 1022 ------- ------- ------- ------- -- Gal Hernandez 667.802 7 CHELY PACE 10/[address] [place] [address])([facility]) [address] [place] [address])([facility] ) TELE CONSULT [id number] Notes Entered by: VICKI VILLA 13 Jan 2015 0714 ------- ------- ------- ------- -- Network Results -DERMAT OLOGY 10/21/14 CHET BILL 01/[address] [place] [address])([facility]) [address] [place] [address])([facility] Disease Managemen t) TELE CONSULT [id number] Notes Entered by: FILEMON JORGE 15 Feb 2015 1627 ------- ------- ------- ------- -- Pt needing fasting labs and f/u appt. FILEMON JORGE 02/[address] [place] [address])([facility] Disease Managem ent) [address] [place] [address])([facility] Tm) OUTPATIENT [id number] f/u lab results - med refills - needs 3 referra whitney (Diab) JORGE FUNK V 03/11 Released w/o Limitations [address] [place] [address])([facility]) [address] [place] [address])([facility]m) TELE CONSULT [id number] Notes Entered by: PENNY SALAMANCA 01 Apr 2015 1257 ------- ------- ------- ------- -- Rx renewal - Garett - [phone] -[id number]/6 [phone] CHELY PACE 04/[address] [place] [address])([facility]) [address] [place] [address])([facility]m) TELE CONSULT [id number] Notes Entered by: Leah WATT 08 Apr 2015 0738 ------- ------- ------- ------- -- ER F/U- Ortho Ref/ Garett / CHELY PACE 04/[address] [place] [address] Travis [facility])([facility]) [address] [place] [address])([facility] Procedure Clinic) OUTPATIENT [id number] 3rd floor [facility]/Pr eop clinic KERRY ALVAREZIN Leah 04/12 Released w/o Limitations [address] [place] [address] Travis [place] [facility] ino Procedu re [facility]) [address] [place] [address] Travis [facility] ) TELE CONSULT [id number] Notes Entered by: VICKI VILLA 27 Apr 2015 1144 ------- ------- ------- ------- -- Network Results OTORHIN OLARYNG OLOGY 04/26/15 JORGE FUNK Rula 04/[address] [place] [address] Group Travis [facility]) [address] [place] [address] Travis [place] [facility]) OUTPATIENT [id number] 2ND FLOOR SAFB/SC RUBEN C-SCOPE CONNOR YODER 05/18 Released w/o Limitations [address] [place] [address] Travis [facility] Procedu re [facility]) [address] [place] [address] Travis [facility])([facility] Blue) TELE CONSULT [id number] Notes Entered by: KRISTY ARCHER 19 May 2015 1508 ------- ------- ------- ------- -- Call back C-scope on 1dec15- KRISTY Olivas 05/[address] [place] [address] Travis [facility] [address] [place] [address] [place] [facility] ) OUTPATIENT [id number] hand pain//3 91.7093 TEO ENRIQUEZ 06/25 Released w/o Limitations [address] [place] [address] [place] [facility]) [address] [place] [address] Travis [facility] ) TELE CONSULT [id number] Notes Entered by: TEO ENRIQUEZ 06 Jul 2015 1502 ------- ------- ------- ------- -- Lab results ARACELI OROZCO 07/06 Referred for Appointment [address] [place] [address] Travis [facility] [place]) [address] [place] [address] Travis [facility])([facility] ) TELE CONSULT [id number] Notes Entered by: DUNCAN GREER 03 Sep 2015 1027 ------- ------- ------- ------- -- Network Results RHEUMAT OLOGY 09/01/15 KGM ENRIQUEZ, DACRE 09/[address] [place] [address] Travis [facility])([facility]) [address] [place] [address] Travis [facility])([facility] ) OUTPATIENT [id number] F/U lab results ENRIQUEZ, DACRE 09/19 Released w/o Limitations [address] [place] [address] Travis [facility])([facility]) [address] [place] [address] Travis [facility])([facility] ) TELE CONSULT [id number] Notes Entered by: KATJA CANTU 03 Dec 2015 1531 ------- ------- ------- ------- -- Network Results Rheumat ology 6 SR ENRIQUEZ, DACRE 12/[address] [place] [address] Travis [facility])([facility]) [address] [place] [address] Travis [facility])([facility] ) TELE CONSULT [id number] Notes Entered by: DUNCAN GREER 17 Mar 2016 0910 ------- ------- ------- ------- -- Network Results RHEUMAT OLOGY 03/15/16 KGM ENRIQUEZ, DACRE 03/[address] [place] [address] Travis [facility])([facility]) [address] [place] [address] Travis [place] [facility] ) OUTPATIENT [id number] f/u on labs 391.709 3 ENRIQUEZ, DACRE 03/28 Released w/o Limitations [address] [place] [address] Travis [place]) [address] [place] [address])([facility] ) OUTPATIENT [id number] Low R Back pain [id number] TEO ENRIQUEZ 04/11 Released w/o Limitations [address] [place] [address])([facility]) [address] [place] [address])([facility] ) TELE CONSULT [id number] Notes Entered by: ADELAIDE EUCEDA 06 Jun 2016 1608 ------- ------- ------- ------- -- Network Results Rheumat ology 6 DH TEO ENRIQUEZ 06/[address] [place] [address])([facility]) [address] [place] [address])([facility] ) TELE CONSULT [id number] Notes Entered by: WALLACE REGAN 09 Jun 2016 1442 ------- ------- ------- ------- -- Network results Ophthal mology 016 DMJ TEO ENRIQUEZ 06/[address] [place] [address])([facility]) [address] [place] [address])([facility] ) TELE CONSULT [id number] Notes Entered by: ASH HE 17 Jul 2016 0849 ------- ------- ------- ------- -- Referra l jacklyn /Med renewal /Debbie // EUGENE Molina 07/[address] [place] [address])([facility]) [address] [place] [address])([facility] ) TELE CONSULT [id number] Notes Entered by: DELIA YOUNG 30 Aug 2016 1212 ------- ------- ------- ------- -- Network Results -RHEUMA TOLOGY 08/29/16 JORGE LAMAS V 08/[address] [place] [address])([facility]) [address] [place] [address])([facility] ) TELE CONSULT [id number] Notes Entered by: DARRON TENA 04 Oct 2016 0944 ------- ------- ------- ------- -- Network Results Radiolo gy 7 BG ABDOMEN 1 VIEW JORGE FUNK V 10/[address] [place] [address])([facility]) [address] [place] [address])([facility] ) TELE CONSULT [id number] Notes Entered by: SHAHLA BA 16 Oct 2016 1417 ------- ------- ------- ------- -- Renewal Renewal Ezequiel /Edson craig/ DAVID MARES 10/16 Referred for Appointment [address] [place] [address])([facility]) [address] [place] [address])([facility] ) TELE CONSULT [id number] Notes Entered by: FRANSISCO LLOYD 17 Oct 2016 1004 ------- ------- ------- ------- -- Network Results Radiolo gy 7 JORGE RAMOS ABD, V 10/[address] [place] [address])([facility]) [address] [place] [address])([facility] ) TELE CONSULT [id number] Notes Entered by: FRANSISCO LLOYD 20 Oct 2016 1356 ------- ------- ------- ------- -- Network Results Laborat orvicki 7 JORGE RAMOS V 10/[address] [place] [address])([facility]) [address] [place] [address])([facility] Internal [facility]) TELE CONSULT [id number] Notes Entered by: JEANNETTE HAWK 23 Oct 2016 1432 ------- ------- ------- ------- -- Network Results Laborat ory 10/20/16 JORGE MCCLELLAN V 10/[address] [place] [address])([facility]) [address] [place] [address])([facility] ) TELE CONSULT [id number] Notes Entered by: FRANSISCO LLOYD 25 Oct 2016 0619 ------- ------- ------- ------- -- Network Results Radiolo gy 7 JORGE STRONG ABD, V 10/[address] [place] [address])([facility]) [address] [place] [address])([facility] Internal [facility]) TELE CONSULT [id number] Notes Entered by: FRANSISCO LLOYD 26 Oct 2016 0830 ------- ------- ------- ------- -- Network Results Radiolo gy 7 JORGE COLLAZO V 10/[address] [place] [address])([facility]) [address] [place] [address])([facility] ) TELE CONSULT [id number] Notes Entered by: FRANSISCO LLOYD 30 Oct 2016 0812 ------- ------- ------- ------- -- Network Results Laborat ory 7 JORGE RAMOS V 10/[address] [place] [address] Travis [facility])([facility]) [address] [place] [address])([facility] ) TELE CONSULT [id number] Notes Entered by: FRANSISCO LLOYD 30 Oct 2016 1244 ------- ------- ------- ------- -- Network Results Urology 6 JORGE RAMOS V 10/[address] [place] [address] Group [facility])([facility]) [address] [place] [address])([facility] ) TELE CONSULT [id number] Notes Entered by: ADELAIDE EUCEDA 01 Nov 2016 1051 ------- ------- ------- ------- -- Network Results Urologi trevor Surgery 7 JORGE BEVERLY V 11/[address] [place] [address] Group [facility])([facility] Tm) [facility])([facility] ) TELE CONSULT [id number] Notes Entered by: ASH HE 17 Nov 2016 1240 ------- ------- ------- ------- -- Referra dulce Villasenor /Edson craig/ /MARY ELLEN Palmer 11/17 Referred for Appointment [facility])([facility]) [facility])([facility] ) TELE CONSULT [id number] Notes Entered by: Leah WATT 22 Nov 2016 1005 ------- ------- ------- ------- -- Med Jacklyn /Edson craig/ - MARSHALL Gallardo 11/22 Referred for Appointment [facility])([facility] Tm) [facility])([facility] ) TELE CONSULT [id number] Notes Entered by: PRAVEENA COTTON 04 Dec 2016 0904 ------- ------- ------- ------- -- Update Sylvia cardona - appt December 20 - Garett - [phone] EUGENE Toro 12/[address] [place] [address])([facility]) [address] [place] [address] TELE CONSULT [id number] Notes Entered by: QUINN PEPE MOSQUERA 11 Jan 2017 0704 ------- ------- ------- ------- -- SX high blood , med jacklyn /EDSON Craig/ [id number] KELLI TRAN 01/[address] [place] [address])([facility]) [address] [place] [address])([facility]) OUTPATIENT [id number] HTN f/u PATTY PACE 01/25 Released w/o Limitations [address] [place] [address])([facility]) [address] [place] [address])([facility] [place] OUTPATIENT [id number] F/u hernia repair JORGE FUNK V 01/25 Released w/o Limitations [address] [place] [address])([facility]) [address] [place] [address])([facility] Internal Medicine Tm) TELE CONSULT [id number] Notes Entered by: SHAHLA BA 15 Feb 2017 08 ------- ------- ------- ------- -- Med Donell/ Garett / KELLI TRAN 02/[address] [place] [address])([facility]) [address] [place] [address])([facility] Internal Medicine Tm) TELE CONSULT [id number] Notes Entered by: WALLACE REGAN 22 Feb 2017 1555 ------- ------- ------- ------- -- Network results Surgery 017 ZULY WILSON 02/[address] [place] [address])([facility]) [address] [place] [address])([facility]) OUTPATIENT [id number] Medicat ion Renewal , Discuss [place] letter [id number] JORGE FUNK V 02/28 Released w/o Limitations [address] [place] [address])([facility]) [address] [place] [address])([facility] Internal Medicine Tm) TELE CONSULT [id number] Notes Entered by: CHRISTIAN HARRELL 01 Mar 2017 1349 ------- ------- ------- ------- -- Network Results - Otorhin olaryng ology (ENT) 7 ZULY CLARK 03/[address] [place] [address])([facility]) [address] [place] [address])([facility] Internal Medicine Tm) TELE CONSULT [id number] Notes Entered by: Waldo SALDIVAR 06 Mar 2017 1023 ------- ------- ------- ------- -- Network results Dermato logy 12/20/16 JORGE HOLMAN V 03/[address] [place] [address] Travis [facility])([facility]) [address] [place] [address])([facility] Internal Medicine Tm) TELE CONSULT [id number] Notes Entered by: Waldo SALDIVAR 15 Mar 2017 0811 ------- ------- ------- ------- -- Network Results Rheumat ology 03/07/17 JORGE HOLMAN V 03/[address] [place] [address])([facility]) [address] [place] [address])([facility] Internal Medicine ) TELE CONSULT [id number] Notes Entered by: SHAHLA BA 02 Apr 2017 1126 ------- ------- ------- ------- -- Paperwo rachael Cabral/ Garett / MARSHALL BRAVO 04/02 Referred for Appointment [address] [place] [address])([facility]) [address] [place] [address])([facility] Medicine ) TELE CONSULT [id number] Notes Entered by: DELIA YOUNG 16 May 2017 1019 ------- ------- ------- ------- -- Network Results -OPHTHA LMOLOGY 7 JORGE LAMAS V 05/[address] [place] [address])([facility]) [address] [place] [address])([facility] Internal Medicine ) TELE CONSULT [id number] Notes Entered by: DARRON TENA 17 May 2017 1150 ------- ------- ------- ------- -- Network Results Radiolo gy 7 JORGE FUNK V 05/[address] [place] [address])([facility]m) [address] [place] [address])([facility] Internal Medicine ) TELE CONSULT [id number] Notes Entered by: FRANSISCO LLOYD 18 May 2017 0951 ------- ------- ------- ------- -- Network Results Urology 7 JORGE FUNK V 05/[address] [place] [address])([facility]) [address] [place] [address])([facility] Internal Medicine ) TELE CONSULT [id number] Notes Entered by: SHAHLA BA 23 May 2017 0818 ------- ------- ------- ------- -- Иван Villasenor /Edson carig/ EUGENE SPRINGER 05/[address] [place] [address])([facility] Intern[facility] Tm) [address] [place] [address])([facility] Internal Medicine ) TELE CONSULT [id number] Notes Entered by: SHAHLA BA 23 May 2017 1341 ------- ------- ------- ------- -- Sylvia Nieves (appt May)/Max chine/6 [id number]. [phone] DAVID MARES 05/23 Referred for Appointment [address] [place] [address])([facility]) [address] [place] [address])([facility] Internal Medicine ) TELE CONSULT [id number] Notes Entered by: EUGENE SPRINGER 14 Jun 2017 1211 ------- ------- ------- ------- -- Walked into clinic c/o cold Sx's EUGENE SPRINGER 06/[address] [place] [address])([facility]m) [address] [place] [address])([facility]) OUTPATIENT [id number] PATTY JHAVERI 06/14 Released w/o Limitations [address] [place] [address])([facility]) [address] [place] [address])([facility] Internal Medicine ) TELE CONSULT [id number] Notes Entered by: LUPE ALMONTE 25 Jun 2017 1416 ------- ------- ------- ------- -- Network Results - Rheumat ology 7 JORGE FUNK V 06/[address] [place] [address])([facility]) [address] [place] [address])([facility] Internal Medicine ) TELE CONSULT [id number] Notes Entered by: RYAN BRUNO 19 Jul 2017 0722 ------- ------- ------- ------- -- Med Renewal / Garett / - sgj KELLI TRAN 07/[address] [place] [address])([facility]) [address] [place] [address])([facility] Internal Medicine ) TELE CONSULT [id number] Notes Entered by: ASH HE 15 Aug 2017 0918 ------- ------- ------- ------- -- Referra l Req and Renewal /Edson [phone] /clm KELLI TRAN 08/[address] [place] [address])([facility]) [address] [place] [address])([facility] Internal Medicine ) TELE CONSULT [id number] Notes Entered by: SHAHLA BA 16 Oct 2017 0753 ------- ------- ------- ------- -- Referra l Renewal Request (appt 16 November)/Magdi byrd/ MARSHALL BRAVO 10/16 Referred for Appointment [address] [place] [address])([facility]) [address] [place] [address])([facility] Internal Medicine ) TELE CONSULT [id number] Notes Entered by: ASHLEY SAGE RET 14 Jan 2018 0738 ------- ------- ------- ------- -- Ref Renewal Dermato logy/Max ndowe/6 18.391. 7093 JORGE Tan 01/14 Immediate Referral [address] [place] [address])([facility] Intern[facility] Medicin [facility] Tm) [facility])([facility] Internal Medicine ) OUTPATIENT [id number] f/u for bp and med adjustm ent [id number] JORGE FUNK V 01/24 Released w/o Limitations [facility])([facility] Intern[facility] l Medicin e Tm) [address] [place] [address] Group [facility])([facility] Internal Medicine ) TELE CONSULT [id number] Notes Entered by: LISANDRO SANTIAGO 31 Jan 2018 1019 ------- ------- ------- ------- -- Referra dulce villasenor /edson craig/[id number] JORGE SORENSEN 01/31 Immediate Referral [address] [place] [address] Group [facility])([facility] Intern[facility] Medicin [facility] Tm) [address] [place] [address])([facility] Internal Medicine ) TELE CONSULT [id number] Notes Entered by: JORGE SORENSEN 31 Jan 2018 1248 ------- ------- ------- ------- -- BP reading s for JORGE Carvalho 01/31 Released to Self [facility])([facility] Interna l Medicin e Tm) [facility])([facility] Internal Medicine ) TELE CONSULT [id number] Notes Entered by: SHAHLA BA 19 Feb 2018 0805 ------- ------- ------- ------- -- Multipdulce Quiñonez/ Garett /[phone] JORGE SORENSEN 02/19 Released to Self Care [address] [place] [address] Group [facility])([facility] Intern[facility] l Medicin [facility] Tm) [address] [place] [address])([facility] Internal Medicine ) TELE CONSULT [id number] Notes Entered by: Waldo SALDIVAR 26 Feb 2018 1547 ------- ------- ------- ------- -- Referra l renewal for Rheumat MARY ELLEN Lazcano 02/26 Referred for Appointment [address] [place] [address])([facility]) [address] [place] [address])([facility] Internal Medicine ) TELE CONSULT [id number] Notes Entered by: PRAVEENA COTTON 04 Mar 2018 0857 ------- ------- ------- ------- -- Med Refill - med questio lacey - Garett - [phone] [id number] JORGE SORENSEN 03/04 Released to Self Care [address] [place] [address])([facility]) [address] [place] [address])([facility] Internal Medicine ) TELE CONSULT [id number] Notes Entered by: SHAHLA BA 18 Mar 2018 0946 ------- ------- ------- ------- -- Med Renewal s/Kondo we/618. [phone] 3 JOREG SORENSEN 03/18 Medication Refill Forwarded [address] [place] [address])([facility]) [address] [place] [address])([facility] Internal Medicine Tm) TELE CONSULT [id number] Notes Entered by: Hedy SAUCEDA 01 Apr 2018 0856 ------- ------- ------- ------- -- Shawna msg / med refill x 1 / gwp MARY ELLEN GEIGER 04/01 Referred for Appointment [address] [place] [address])([facility]) [address] [place] [address])([facility]) TELE CONSULT [id number] Notes Entered by: NATA CARRENO 09 Apr 2018 1344 ------- ------- ------- ------- -- Disease Managem ent- Annual f/u and Labs ANTA CARRENO T 04/09 Other Not Elsewhere Classified [address] [place] [address] Group [facility])(S cott Disease Managem ent) [address] [place] [address])([facility] Internal Medicine ) TELE CONSULT [id number] 3 Notes Entered by: COLBY HARRIS 21 May 2018 0847 ------- ------- ------- ------- -- Med refill/ Dr. Funk / JORGE SORENSEN 05/21 Medication Refill Forwarded [address] [place] [address] Group [facility])([facility] Medic[facility] Tm) [address] [place] [address])([facility] Internal Medicine ) TELE CONSULT [id number] Notes Entered by: GILMAR VENTURA 20 Jun 2018 1030 ------- ------- ------- ------- -- Marbinre- MARY ELLEN Abraham 06/20 Referred for Appointment [address] [place] [address])([facility]) [address] [place] [address])([facility] Medicine ) TELE CONSULT [id number] 2 Notes Entered by: Hedy SAUCEDA 14 Aug 2018 0900 ------- ------- ------- ------- -- Micare msg / med refill / JORGE Owusu 08/14 Medication Refill Forwarded [address] [place] [address])([facility]) [address] [place] [address])([facility] ) TELE CONSULT [id number] 2 Notes Entered by: Hedy SAUCEDA 02 Sep 2018 1010 ------- ------- ------- ------- -- Micare msg/ referra l request / gwp JORGE SORENSEN 09/02 Immediate Referral [facility])([facility] Intern[facility] Medicin e Tm) [facility])([facility] Internal Medicine ) TELE CONSULT [id number] 9 Notes Entered by: Hedy SAUCEDA 12 Sep 2018 0923 ------- ------- ------- ------- -- Micare msg/ referra l request / EUGENE Reyes 09/12 Released w/o Limitations [facility])([facility] Intern[facility] l Medicin [facility] Tm) [address] [place] [address] Group [facility])([facility] Medicine ) TELE CONSULT [id number] 4 Notes Entered by: Hedy SAUCEDA 16 Sep 2018 0924 ------- ------- ------- ------- -- Micare msg/ referra l request / zacheryp JORGE SORENSEN 09/16 Immediate Referral [facility])([facility] Interna l Medicin e Tm) [facility])([facility] ) TELE CONSULT [id number] 1 Notes Entered by: Hedy SAUCEDA 18 Sep 2018 0923 ------- ------- ------- ------- -- Micare msg/ referra l renewal / TONY Hernandez 09/18 Referred for Appointment [facility])([facility] Intern[facility] Medicin [facility] Tm) [facility])([facility] Internal Medicine ) TELE CONSULT [id number] 5 Notes Entered by: NATALEE CALERO 07 Nov 2018 1057 ------- ------- ------- ------- -- Network Results Podiatr y 019 TEO HOPE 11/07 [facility])([facility] Medic[facility] Tm) [address] [place] [address])([facility] ) TELE CONSULT [id number] 3 Notes Entered by: Magdi VALDES 02 Dec 2018 1214 ------- ------- ------- ------- -- Network results Urology 019 AMILCAR GOLDMAN 12/[address] [place] [address])([facility]) [address] [place] [address])([facility] ) TELE CONSULT [id number] 7 Notes Entered by: Hedy SAUCEDA 03 Feb 2019 0831 ------- ------- ------- ------- -- micare msg/ med refill x 4 / gwp EUGENE SPRINGER 02/03 Medication Refill Forwarded [address] [place] [address])([facility]) [address] [place] [address])([facility] ) TELE CONSULT [id number] 5 Notes Entered by: ASHLEY SAGE RET 03 Feb 2019 1220 ------- ------- ------- ------- -- Lab Order- Appt ight/61 [id number] 900 EUGENE SPRINGER 02/03 Other Not Elsewhere Classified [address] [place] [address])([facility]) [address] [place] [address])([facility] ) OUTPATIENT [id number] annual visit and lab review AMILCAR PRECIADO 02/25 Released w/o Limitations [address] [place] [address])([facility]) [address] [place] [address])([facility] ) TELE CONSULT [id number] 5 Notes Entered by: Hedy SAUCEDA 01 Apr 2019 1240 ------- ------- ------- ------- -- Shawna msg/ refer l request / MARY ELLEN Prakash 04/01 Referred for Appointment [address] [place] [address])([facility]) [address] [place] [address])([facility] ) OUTPATIENT [id number] Wheezin g in chest AMILCAR PRECIADO 04/14 Released w/o Limitations [address] [place] [address])([facility]) [address] [place] [address])([facility] Medicine ) TELE CONSULT [id number] Notes Entered by: GILMAR VENTURA 14 Apr 2019 1624 ------- ------- ------- ------- -- WHEEZIN G EUGENE SPRINGER 04/14 Referred for Appointment [address] [place] [address])([facility]) [address] [place] [address])([facility] ) OUTPATIENT [id number] F/u Cough AMILCAR PRECIADO 05/01 Released w/o Limitations [address] [place] [address])([facility]) [address] [place] [address])([facility] ) OUTPATIENT [id number] 2 pain in right arm (hand - elbow - shoulde r) FLAKITO MARTINO 08/07 Released w/o Limitations [address] [place] [address])([facility]) [address] [place] [address])([facility] ) TELE CONSULT [id number] Notes Entered by: ADELINA MORALES 13 Aug 2019 1625 ------- ------- ------- ------- -- Network results Physica l Therapy 2019 LEYDAR FLAKITO MARTINO 08/[address] [place] [address])([facility]) [address] [place] [address])([facility] ) TELE CONSULT [id number] Notes Entered by: ADELINA MORALES 01 Sep 2019 1139 ------- ------- ------- ------- -- Network results Physica l Therapy 020 FLAKITO RICE 08/[address] [place] [address])([facility] Tm) [address] [place] [address])([facility] ) TELE CONSULT [id number] Notes Entered by: GILMAR VENTURA 16 Sep 2019 1151 ------- ------- ------- ------- -- MarbinreMARY ELLEN Ross 09/15 Other Not Elsewhere Classified [address] [place] [address])([facility] T[facility]) [address] [place] [address])([facility] ) TELE CONSULT [id number] 3 Notes Entered by: GILMAR VENTURA 20 Oct 2019 1021 ------- ------- ------- ------- -- MARY ELLEN Jaeger 10/19 Referred for Appointment [address] [place] [address])([facility] T[facility]) [address] [place] [address])([facility] ) TELE CONSULT [id number] 7 Notes Entered by: Hedy SAUCEDA 24 Nov 2019 0805 ------- ------- ------- ------- -- Shawna msg/ appt request / B/P concern s / EUGENE Reyes 11/23 Other Not Elsewhere Classified [address] [place] [address])([facility]) [address] [place] [address])([facility] Medicine ) OUTPATIENT [id number] 5 elevate d BP and low back pain, call [phone] FLAKITO MARTINO Belinda 11/24 Released w/o Limitations [address] [place] [address] Group [facility])([facility] Interna l Medicin e Tm) [address] [place] [address])([facility] ) TELE CONSULT [id number] 9 Notes Entered by: NATALEE CALERO 25 Nov 2019 1246 ------- ------- ------- ------- -- Network results Physica l Therapy 020 KSP SUZY MARTINOParam Trevino 11/[address] [place] [address] Group [facility])([facility] Intern[facility] l Medicin e Tm) [address] [place] [address])([facility] Internal Medicine ) TELE CONSULT [id number] 1 Notes Entered by: ST CHANDLER BUNDY 11 Dec 2019 0924 ------- ------- ------- ------- -- Network results Podiatr y 020 SHIN BOONE SULLIVANNICK 12/[address] [place] [address])([facility]) [address] [place] [address])([facility] Internal Medicine ) TELE CONSULT [id number] 5 Notes Entered by: Hedy SAUCEDA 12 Dec 2019 1049 ------- ------- ------- ------- -- shawna agarwal/ B/P reading s / EUGENE Reyes 12/11 Other Not Elsewhere Classified [address] [place] [address])([facility]) [address] [place] [address])([facility] ) TELE CONSULT [id number] 6 Notes Entered by: Hedy SAUCEDA 17 Dec 2019 1037 ------- ------- ------- ------- -- Shawna agarwal/ MEÑO / B/P /EUGENE Reyes 12/16 Other Not Elsewhere Classified [address] [place] [address])([facility]) [address] [place] [address])([facility] Internal Medicine ) TELE CONSULT [id number] 0 Notes Entered by: GILMAR VENTURA 24 Dec 2019 0734 ------- ------- ------- ------- -- [facility]_ office Note EUGENE SPRINGER 12/23 Advice Assessment [address] [place] [address])([facility]) [address] [place] [address])([facility] Medicine ) TELE CONSULT [id number] 3 Notes Entered by: ST CHANDLER BUNDY 26 Dec 2019 1229 ------- ------- ------- ------- -- Network results Physica l Therapy 020 FLAKITO SNELL 12/[address] [place] [address])([facility] Intern[facility] Medicin [facility] Tm) [address] [place] [address])([facility] Internal Medicine ) TELE CONSULT [id number] 3 Notes Entered by: Hedy SAUCEDA 09 Jan 2020 0750 ------- ------- ------- ------- -- Shawna msg/ B/P reading s / EUGENE Reyes 01/08 Other Not Elsewhere Classified [address] [place] [address])([facility] Intern[facility] Medicin [facility] Tm) [address] [place] [address])([facility] Internal Medicine ) TELE CONSULT [id number] 9 Notes Entered by: Hedy SAUCEDA 01 Mar 2020 0940 ------- ------- ------- ------- -- Micare msg/ med refill x pill left / EUGENE Reyes 03/01 Medication Refill Forwarded [address] [place] [address])([facility]) [address] [place] [address])([facility] ) TELE CONSULT [id number] Notes Entered by: RYAN BRUNO 01 Mar 2020 1112 ------- ------- ------- ------- -- Lab Order Request -Appt Feb-Ellis ramirez Like to do Lab Work15 mbers/9 [id number] MARY ELLEN GEIGER 03/01 Other Not Elsewhere Classified [address] [place] [address] [facility])([facility] Intern[facility] l Medicin e Tm) [address] [place] [address] [facility])([facility] Internal Medicine ) OUTPATIENT [id number] Virtual Appt - general check up/medi cations /lab results - [id number] FLAKITO MARTINO 03/02 Released w/o Limitations [address] [place] [address] [facility])([facility] cott Intern[facility] l Medicin e Tm) [address] [place] [address] [facility])([facility] ) TELE CONSULT [id number] 3 Notes Entered by: Hedy SAUCEDA 26 Mar 2020 0813 ------- ------- ------- ------- -- micare msg/ medicat ion request / EUGENE Reyes 03/26 Medication Refill Forwarded [address] [place] [address] [facility])([facility] Intern[facility] Medicin [facility] Tm) [address] [place] [address] [facility])([facility] Internal Medicine ) TELE CONSULT [id number] 0 Notes Entered by: Hedy SAUCEDA 10 May 2020 0807 ------- ------- ------- ------- -- micare msg/ med refill x 4 /EUGENE Reyes 05/10 Medication Refill Forwarded [address] [place] [address] [facility])([facility] cott Interna l Medicin e Tm) [facility] QNHP OL DIG ASSMT&MGMT 5-10 [id number] Diagnos is: ICD-10- CM H90.A31 Mix cndct/s nrl hear loss,un i,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 WISEMANCONI JONES 10/28 [facility] HEARING AID EXAM BOTH EARS [id number] [id number] Diagnos is: ICD-10- CM H90.A31 Mix cndct/s nrl hear loss,un i,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 MEMPHISSEJAL E M 10/30 [facility] TYMPANOMET RY & REFLEX THRESH [id number] [id number] Diagnos is: ICD-10- CM H90.A31 Mix cndct/s nrl hear loss,un i,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 MEMPHISONOFREI E M 10/30 [facility] Outpatient Encounter [id number] 10/30 [facility] Outpatient Encounter [id number] 10/30 [facility] HEARING SERVICE [id number] [id number] Diagnos is: ICD-10- CM H90.A31 Mix cndct/s nrl hear loss,un i,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 MEMPHISSEJAL E M 11/29 [facility] Outpatient Encounter [id number] 12/16 [facility] OFFICE O/P EST MOD 30 MIN [id number] [id number] Diagnos is: ICD-10- CM Z00.00 Encntr for general adult medical exam w/o abnorma l Waldo Patton 02/19 [facility] Outpatient Encounter [id number] 02/20 [facility] Procedures Combined list of: 1) Procedures from Department of Veterans Affairs facilities going back up to thelast 18 months, not all VA non-surgical procedures are included; 2) All procedures from the Department of Defense facilities. Procedure Procedure Type Code Date Perfomer Comments Sourc e Non-Physician Phone Call To Patient/Provider Brief (5-10min) Non-Physician Phone Call To Patient/Provider Brief (5-10min) [id number] 2018 JITENDRA ZURITA [employer] Internet Med Svc Qual Nonphys Healthcare Prof Estab Patient Internet Med Svc Qual Nonphys Healthcare Prof Estab Patient [id number] 2018 MARY ELLEN WEBB DoD Non-Physician Phone Call To Patient/Provider Brief (5-10min) Non-Physician Phone Call To Patient/Provider Brief (5-10min) [id number] 2017 JORGE SORENSEN Do[employer] Disease management program, follow-up/obdulio e ment 2017 NATA CARRENO Do[employer] Internet Med Svc Qual Nonphys Healthcare Prof Estab Patient Internet Med Svc Qual Nonphys Healthcare Prof Estab Patient [id number] 2017 JORGE FUNK V [employer] Non-Physician Phone Call To Patient/Provider Brief (5-10min) Non-Physician Phone Call To Patient/Provider Brief (5-10min) [id number] 2017 JORGE SORENSEN Non-Physician Phone Call To Patient/Provider Brief (5-10min) Non-Physician Phone Call To Patient/Provider Brief (5-10min) [id number] 2017 JORGE SORENSEN [employer] Non-Physician Phone Call To Patient/Provider Brief (5-10min) Non-Physician Phone Call To Patient/Provider Brief (5-10min) [id number] 2017 MARY ELLEN WEBB [employer] Non-Physician Phone Call To Patient/Provider Brief (5-10min) Non-Physician Phone Call To Patient/Provider Brief (5-10min) [id number] 2017 JORGE SORENSEN [employer] Non-Physician Phone Call To Patient/Provider Brief (5-10min) Non-Physician Phone Call To Patient/Provider Brief (5-10min) [id number] 2017 JORGE SORENSEN [facility] Non-Physician Phone Call To Patient/Provider Brief (5-10min) Non-Physician Phone Call To Patient/Provider Brief (5-10min) [id number] 2017 JORGE SORENSEN [facility] Non-Physician Phone Call To Patient/Provider Brief (5-10min) Non-Physician Phone Call To Patient/Provider Brief (5-10min) [id number] 2017 MARSHALL BRAVO [facility] Non-Physician Phone Call To Patient/Provider Brief (5-10min) Non-Physician Phone Call To Patient/Provider Brief (5-10min) [id number] 2017 PATTY PACE [facility] Non-Physician Phone Call To Patient/Provider Brief (5-10min) Non-Physician Phone Call To Patient/Provider Brief (5-10min) [id number] 2017 JORGE FUNK V Do[employer] Med Management By Pharmacist Initial 15 Min Estab Patient Med Management By Pharmacist Initial 15 Min Estab Patient [id number] 2016 PATTY PCAE [facility] Non-Physician Phone Call To Patient/Provider Brief (5-10min) Non-Physician Phone Call To Patient/Provider Brief (5-10min) [id number] 2016 DAVID MARES [facility] Non-Physician Phone Call To Patient/Provider Brief (5-10min) Non-Physician Phone Call To Patient/Provider Brief (5-10min) [id number] 2016 EUGENE SPRINGER [facility] Non-Physician Phone Call To Patient/Provider Brief (5-10min) Non-Physician Phone Call To Patient/Provider Brief (5-10min) [id number] 2016 MARSHALL BRAVO [facility] Non-Physician Phone Call To Patient/Provider Brief (5-10min) Non-Physician Phone Call To Patient/Provider Brief (5-10min) [id number] 2016 KELLI RTAN [facility] Med Management By Pharmacist Initial 15 Min New Patient Med Management By Pharmacist Initial 15 Min New Patient [id number] 2016 PATTY PACE [facility] Non-Physician Phone Call To Patient/Provider Brief (5-10min) Non-Physician Phone Call To Patient/Provider Brief (5-10min) [id number] 2016 KELLI TRAN [facility] Non-Physician Phone Call To Patient/Provider Brief (5-10min) Non-Physician Phone Call To Patient/Provider Brief (5-10min) [id number] 2016 EUGENE SPRINGER [facility] Non-Physician Phone Call To Patient/Provider Brief (5-10min) Non-Physician Phone Call To Patient/Provider Brief (5-10min) [id number] 2016 MARSHALL BRAVO [facility] Non-Physician Phone Call To Patient/Provider Brief (5-10min) Non-Physician Phone Call To Patient/Provider Brief (5-10min) [id number] 2016 MARY ELLEN WEBB [facility] Non-Physician Phone Call To Patient/Provider Brief (5-10min) Non-Physician Phone Call To Patient/Provider Brief (5-10min) [id number] 2016 DAVID MARES [facility] Non-Physician Phone Call To Patient/Provider Brief (5-10min) Non-Physician Phone Call To Patient/Provider Brief (5-10min) [id number] 2016 EUGENE SPRINGER [facility] Complete Colonoscopy Complete Colonoscopy [id number] 2014 CONNOR YODER [facility] Telephone calls by a registered nurse to a disease management program member for monitoring purposes; per month 2014 FILEMON JORGE [facility] Non-Physician Phone Call To Patient/Provider Brief (5-10min) Non-Physician Phone Call To Patient/Provider Brief (5-10min) [id number] 2014 FILEMON JORGE [facility] Non-Physician Phone Call To Pt/Provider Intermed (11-20 min) Non-Physician Phone Call To Pt/Provider Intermed (11-20 min) [id number] 2014 CHELY PACE [facility] Non-Physician Phone Call To Patient/Provider Brief (5-10min) Non-Physician Phone Call To Patient/Provider Brief (5-10min) [id number] 2014 NASEEM ESPINOZA [facility] Non-Physician Phone Call To Patient/Provider Brief (5-10min) Non-Physician Phone Call To Patient/Provider Brief (5-10min) [id number] 2013 KEN CONWAY Non-Physician Phone Call To Patient/Provider Brief (5-10min) Non-Physician Phone Call To Patient/Provider Brief (5-10min) [id number] 2013 KEN CONWAY Non-Physician Phone Call To Patient/Provider Brief (5-10min) Non-Physician Phone Call To Patient/Provider Brief (5-10min) [id number] 2013 KEN CONWAY Non-Physician Phone Call To Pt/Provider Lengthy (21-30 min) Non-Physician Phone Call To Pt/Provider Lengthy (21-30 min) [id number] 2013 CHELY PACE Determination Of Refractive State Determination Of Refractive State 43379 2012 GUZMAN FRASER Ophthalmological Prior Patient Start Comprehensive Care Ophthalmological Prior Patient Start Comprehensive Care [id number] 2012 GUZMAN FRASER Non-Physician Phone Call To Pt/Provider Intermed (11-20 min) Non-Physician Phone Call To Pt/Provider Intermed (11-20 min) [id number] 2012 FILEMON JORGE Non-Physician Phone Call To Pt/Provider Intermed (11-20 min) Non-Physician Phone Call To Pt/Provider Intermed (11-20 min) [id number] 2011 CHELY PACE [employer] Fitting Bifocals (Not For Aphakia) [employer] Fitting Bifocals (Not For Aphakia) [id number] 2010 HUDSON ATWOOD Determination Of Refractive State Determination Of Refractive State [id number] 2010 HUDSON ATWOOD [employer] Photography Fundus Photography 97831 2010 HUDSON ATWOOD Visual Nina Test Intermediate Examination Visual Nina Test Intermediate Examination [id number] 2010 HUDSON ATWOOD Ophthalmological Prior Patient Start Comprehensive Care Ophthalmological Prior Patient Start Comprehensive Care [id number] 2010 HUDSON ATWOOD Non-Physician Phone Call To Patient/Provider Brief (5-10min) Non-Physician Phone Call To Patient/Provider Brief (5-10min) [id number] 2010 MJ RENDON Telephone calls by a registered nurse to a disease management program member for monitoring purposes; per month 2010 MJ RENDON Non-Physician Phone Call To Patient/Provider Brief (5-10min) Non-Physician Phone Call To Patient/Provider Brief (5-10min) [id number] 2010 MJ RENDON Telephone calls by a registered nurse to a disease management program member for monitoring purposes; per month 2010 MJ RENDON Non-Physician Phone Call To Pt/Provider Intermed (11-20 min) Non-Physician Phone Call To Pt/Provider Intermed (11-20 min) 11651 2009 AZEB GRACIA Patient Counseling Medical Management Individual Patient Patient Counseling Medical Management Individual Patient [id number] 2009 MJ RENDON Patient Counseling Medical Management Individual Patient Patient Counseling Medical Management Individual Patient [id number] 2009 MJ RENDON Non-Physician Phone Call To Patient/Provider Brief (5-10min) Non-Physician Phone Call To Patient/Provider Brief (5-10min) [id number] 2009 AZEB GRACIA Non-Physician Phone Call To Patient/Provider Brief (5-10min) Non-Physician Phone Call To Patient/Provider Brief (5-10min) [id number] 2009 AZEB GRACIA Diabetic indicator; retinal eye exam, dilated, bilateral 2009 NIKO FRASER Visual Nina Test Intermediate Examination Visual Nina Test Intermediate Examination [id number] 2009 NIKO FRASER Spectacles Services Fitting Bifocals (Not For Aphakia) Spectacles Services Fitting Bifocals (Not For Aphakia) [id number] 2009 NIKO FRASER Determination Of Refractive State Determination Of Refractive State [id number] 2009 NIKO FRASER Ophthalmological New Patient Start Comprehensive Care Ophthalmological New Patient Start Comprehensive Care [id number] 2009 NIKO FRASER Physical Medicine Physical Therapy Re-Evaluation Physical Medicine Physical Therapy Re-Evaluation 05799 2008 MARIA E HARPER Modalities Ultrasound Modalities Ultrasound 14221 2008 MC MOLINA [facility] Modalities Ultrasound Modalities Ultrasound 08056 2008 JUAN MCNEIL DoD Modalities Ultrasound Modalities Ultrasound 60234 2008 MC MOLINA Modalities Ultrasound Modalities Ultrasound 23225 2008 TALIARELY RITCHIE David DoD Modalities Ultrasound Modalities Ultrasound 28363 2008 MC MOLINA Physical Medicine Physical Therapy Re-Evaluation Physical Medicine Physical Therapy Re-Evaluation 92382 2008 MARIA E HARPER Modalities Heat Hot Packs Modalities Heat Hot Packs 61423 2008 MC MOLINA Modalities Traction Modalities Traction 31964 2008 MC MOLINA Modalities Traction Modalities Traction 31389 2008 JUAN MCNEIL DoD Modalities Heat Hot Packs Modalities Heat Hot Packs 58390 2008 JUAN MCNEIL Modalities Traction Modalities Traction 33719 2008 MC MOLINA Modalities Heat Hot Packs Modalities Heat Hot Packs 29351 2008 MC MOLINA Modalities Traction Modalities Traction 35286 2008 MC MOLINA Modalities Heat Hot Packs Modalities Heat Hot Packs 33432 2008 MC MOLINA Modalities Traction Modalities Traction 96194 2008 JUAN MCNEIL Modalities Heat Hot Packs Modalities Heat Hot Packs 55298 2008 MCNEILKOBY LynnICA C DoD Modalities Heat Hot Packs Modalities Heat Hot Packs 35491 2008 MC MOLINA Modalities Traction Modalities Traction 63427 2008 MC MOLINA Physical Therapy: ___ Se ion Segments, 15 Minutes Each Physical Therapy: ___ Session Segments, 15 Minutes Each [id number] 2008 MARIA E HARPER Physical Medicine Physical Therapy Evaluation Physical Medicine Physical Therapy Evaluation 27437 2008 MARIA E HARPER Medical Nutrition Therapy Group (2 or More Individual(s)) Medical Nutrition Therapy Group (2 or More Individual(s)) 54932 2007 TONA LOVING Dermatological Surgery Cryotherapy Dermatological Surgery Cryotherapy 59762 2006 GALO ANSARI cryotherapy x 4 on forehead w/ 2 freeze thaw cycles DoD Destruction Of Benign Lesion By Cryosurgery 2005 ANISA PACE [facility] Destruction Of Benign Lesion By Any Method One Lesion 2005 ANISA PACE DoD Destruction Of Benign Lesion By Cryosurgery 2005 TEE BYRNE DoD Destruct Of Benign Lesion By Any Method Second Through 14 2005 TEE BYRNE [facility] Destruction Of Benign Lesion By Cryosurgery 2004 TEE BYRNE Destruct Of Benign Lesion By Any Method Second Through 14 2004 TEE BYRNE DoD AUGMENTATION RHINOPLASTY 1992 [facility] APPLICATION OF ORTHODONTIC APPLIANCE 1992 [facility] OTHER EXCISION OF MOUTH 1992 DoD EXCISION OF OTHER BONE FOR GRAFT, EXCEPT FACIAL BONES 1992 [facility] BONE GRAFT OF OTHER BONE, EXCEPT FACIAL BONES 1992 [facility] CLOSURE OF NASAL FISTULA 1992 [facility] TOTAL OSTEOPLASTY (OSTEOTOMY) OF MAXILLA 1992 [facility] MYRINGOPLASTY 1995 DoD QUALIFIED NONPHYSICIAN HEALTH [facility] ONLINE DIGITAL ASSESSMENT AND MANAGEMENT, FOR AN ESTABLISHED PATIENT, FOR UP TO 7 DAYS, CUMULATIVE TIME DURING THE 7 DAYS; 5-10 MINUTES 2019 DoD TELE ASSESS & MGT SRV PROV [...] PROVIDE W/IN THE PREV 7 DAYS,USE THE Pharmacy Development/[employer] NETWORK 2018 DoD TELE ASSESS & MGT SRV PROV QUAL NONPHYS HLTH CARE PRO TO EST PAT,PARENT,GUARD NOT ORIG REL ASSESS & MGT SRV PROV W/IN PREV 7 DAYS NOR LEAD ASSESS & MGT SRV/PX W/IN NXT 24 HR/SOON APT;5-10 MIN MED DIS 2017 [facility] DISEASE MANAGEMENT PROGRAM, FOLLOW-UP/REASSESS MENT 2017 DoD ONLINE ASSESS &MANAG SERV PROVIDE,A QUAL NONPHYS HCP TO AN ESTABLISHED PAT/GUARDIAN,NOT ORIGINAT FRM RELAT ASSESS &MANAG SERV PROVIDE W/IN THE PREV 7 DAYS,USE THE INTERNET/[email or web address] NETWORK 2017 DoD TELE ASSESS & MGT [...] MANAGEMENT SERVICE(S) PROVIDED BY A PHARMACIST, INDIVIDUAL, [id number] WITH PATIENT, WITH ASSESSMENT AND INTERVENTION IF [...] MANAGEMENT SERVICE(S) PROVIDED BY A PHARMACIST, INDIVIDUAL, [id number] WITH PATIENT, WITH ASSESSMENT AND INTERVENTION IF [...] EDUCATION &TRAINING, PATIENT SELF-MGT QUALIFIED, NONPHYSICIAN HEALTH BAND SAWYER USING STDIZED CURRICULUM, [id number] W THE PATIENT (COULD INCL CAREGIVER/FAMILY) EA 30 MIN; INDIVIDUAL PATIENT 2009 DoD EDUCATION &TRAINING, PATIENT SELF-MGT QUALIFIED, NONPHYSICIAN HEALTH BAND SAWYER USING STDIZED CURRICULUM, [id number] W THE PATIENT (COULD INCL CAREGIVER/FAMILY) EA [...] RANGE OF MOTION AND FLEXIBILITY 2002 DoD NONINVASIVE EAR OR PULSE OXIMETRY FOR OXYGEN SATURATION; SINGLE DETERMINATION 2001 DoD No data available for this section Ambulato ry Pharmacy Social History Combined list of available smoking, tobacco, and other social history from Department of Defense and Veterans Affairs facilities. Social History Type Response Date Comment Sourc e Tobacco smoking status WAIS VA-TOBACCO FORMER USER 02/20/2024 [facility] History of tobacco use VA-TOBACCO QUIT 5 TO < 15 YRS 02/20/2024 [facility] History of tobacco use VA-TOBACCO QUIT 1 5 YRS OR MORE 08/14/2018 [facility] History of tobacco use QUIT TOBACCO >7 Y EARS AGO 01/10/2017 [facility] This section is an empty social [...] Plan No data available for this section 11/20/2024 Ambulatory Pharmacy Plan of Care List of future care activities from Department of Veterans Affairs facilities. Additional future care activities may be listed in the Assessment and Plan section. Date/Time Care Activity Care Activity Detail Facili ty 03/17/2025 AMBULATORY - MEDICINE AMBULATORY - MEDICI [facility] Functional Status Combined list of recent functional and cognitive assessments recorded at [facility] of Defense and Veterans Affairs (VA).VA Functional Zavala Measurement (FIM) Scale: 1 = Total Assistance (Subject = 0% +), 2 = Maximal Assistance (Subject = 25% +), 3 = Moderate Assistance (Subject = 50% +), 4 = Minimal Assistance (Subject = 75% +), 5 = Supervision, 6 = Modified Zavala (Device), 7 = Complete Zavala (Timely, Safely). Assessment Date/Time Source Assessment Type Assessment Skill Assessment Score Assessment Details No data available for this section
--- OUTSIDE RECORDS SUMMARY | 2024-11-20 15:31 | XMS_ITS | Clinical Summary ---
Author Organization [facility] Address [address] [place] [address] Care Team Providers Care Cylinder Press Operator Apprentice Name Role Phone Unavailable Primary Care Provider Unavailabl e Source Comments [facility],non-owned Affiliates and Associated Physician Practices is amultiple site organization consisting of ambulatory clinics and hospital sitesin [place], [place], [place] and [place]. This disclosure is being madepursuant to the Care Everywhere program and may not contain all information available regarding this patient. Last updated 18.[facility] Allergies No known active allergies Medications * Be aware that medications may not be up to date on this document. Alwaysverify current medications with the patient. telmisartan (MICARDIS) 40 MG tablet Take 40 [...] Encounters Date Type Department Care Team Description 10/27/2024 Lab Requisition [facility] - DermPath Lab [address] [facility] [facility] [place] [address] Johanna Wagner MD 10/13/2024 Lab Requisition [facility] Lab [address] [place] [address] Johanna Wagner MD 09/03/2024 Lab Requisition [facility] Lab [address] [place] [address] Johanna Wagner MD from Last 3 Months Social History Tobacco Use Types Packs/Day Years Used Date Smoking Tobacco: Former Cigarettes Q uit: 06/22/1993 Alcohol Use Standard Drinks/Week Comments No 0 (1 standard drink = 0.6 oz pur e alcohol) Sex and Gender Information Value Date Recorded Sex Assigned at Not on file Legal Sex Male 4:48 PM CEPHALOMETRIC ANALYST Gender Identity Not on file Sexual Orientation Not on file Last Filed Vital Signs Vital Sign Reading Time Taken Comments Blood Pressure 139/83 05/22/2013 12:57 PM CEPHALOMETRIC ANALYST Pulse 75 05/22/2013 12:57 PM CEPHALOMETRIC ANALYST Temperature 36.9 C (98.4 F) 05/22/2013 12:57 PM CEPHALOMETRIC ANALYST Respiratory Rate 16 05/22/2013 12:57 PM CEPHALOMETRIC ANALYST Oxygen Saturation 96% 05/22/2013 12:57 PM CEPHALOMETRIC ANALYST Inhaled Oxygen Concentration - - Weight 116.1 kg (256 lb) 05/22/2013 8:02 AM CEPHALOMETRIC ANALYST Height 182.9 cm (6') 05/22/2013 8:02 AM CEPHALOMETRIC ANALYST Body Mass Index 34.72 05/22/2013 8:02 AM CEPHALOMETRIC ANALYST Plan of Treatment Health Maintenance Due Date [...] 2) 2005 AAA SCREENING 2020 COVID-19 VACCINE (1 - 2023-2 5 season) 2024 DEPRESSION SCREENING 06/18/2024 INFLUENZA VACCINE (Season Ended) 2025 Respiratory Syncytial Virus (RSV) Vaccine Pt: or [...] Comments DERMATOPATHOLOGY Routine 10/27/2024 8:24 AM CDT DERMATOPATHOLOGY Routine 10/13/2024 8:59 AM CDT DERMATOPATHOLOGY Routine 09/03/2024 3:06 PM CDT from Last 3 Months Results * DERMATOPATHOLOGY (10/27/2024 8:24 AM CDT) Only the most recent of3 resultswithin the time period is included. Case Report Dermatopathology Report Case: [id number] Authorizing Provider: Johanna Wagner MD Collected: 10/27/2024 08:24 AM Ordering Location: [facility] - Received: 10/27/2024 01:08 PM [...] auricular.The specimen consists of an ellipse measuring 80t29o2 mm and is oriented with the suture/notch [...] in cassettes 3-5. Jar 0. 12:44 PM [facility] DERMATOPATHOLOGY LABORATORY Microscopic Description Specimen A. [...] perpendicular to the skin surface. 12:44 PM [facility] DERMATOPATHOLOGY LABORATORY Disclaimer An external and internal positive and negative controls are appropriate for the histochemical, immunohistochemical and immunofluorescence stain(s) in this case (if any), except where stated explicitly. The performance characteristics of the stain(s) cited in this report were developed and its performance characteristic determined by the Dermatopathology Laboratory at [facility], directed by Dr. Sandi Hubbard. These tests need not be, and therefore are not, approved by the [place] Food and Drug Administration. The tests are used for clinical purposes. Billing Codes Specimen Charges Stain Charges 65721 1 12:44 PM CDT DERMATOPATHOLOGY LABORATORY Embedded Images 12:44 PM T DERMATOPATHOLOGY LABORATORY Pathology/Cytolo gy TISSUE SPECIMEN FROM SKIN / Unknown 10/27/2024 8:24 AM CDT 10/27/2024 1:08 PM CDT us Johanna Wagner MD LAB - PATHOLOGY/CYTOLOGY ORD ERABLES Final Result DERMATOPATHOLOGY LABORATORY [facility] - Department of Dermatology [address] [place] [address], [facility] [phone] from Last 3 Months Insurance MEDICARE MEDICARE
--- OUTSIDE RECORDS SUMMARY | 2024-11-20 15:31 | XMS_ITS | Encounter Summary ---
Author Organization [facility] Address [address] [place] [address] Care Team Providers Care Ointment Mill Tender Name Role Phone Unavailable Primary Care Provider Unavailabl e Encounter Details Date Type Department Care Team (Late st Contact Info) Description 08/04/2019 Lab Requisition [facility] DermPath Lab [address] [facility] [address] [facility], [place] [address] Gwen Gutiérrez MD [address] [facility] [address] [place] [address] Social History Tobacco Use Types Packs/Day Years Used Date Smoking Tobacco: Former Cigarettes Q uit: 06/22/1993 Alcohol Use Standard Drinks/Week Comments No 0 (1 standard drink = 0.6 oz pur e alcohol) Sex and Gender Information Value Date Recorded Sex Assigned at Not on file Legal Sex Male 4:48 PM PHOTOGRAPHY AND PRINTS CURATOR Gender Identity Not on file Sexual Orientation Not on file documented as of this encounter Plan of Treatment Not on file documented as of this encounter Procedures Procedure Name Priority Date/Time Associated Diagnosis Comments DERMATOPATHOLOGY Routine 08/01/2019 12:0 0 AM PHOTOGRAPHY AND PRINTS CURATOR documented in this encounter Results * DERMATOPATHOLOGY (08/01/2019 12:00 AM PHOTOGRAPHY AND PRINTS CURATOR) Case Report Dermatopathology Report Case: [id number] Authorizing Provider: Gwen Gutiérrez MD Collected: 08/01/2019 12:00 AM Ordering Location: [facility] DermPath Lab Received: 08/04/2019 07:48 AM Pathologist: Vincent Hubbard MD Specimen: Skin, right sup chest 0 1:20 PM [facility] DERMATOPATHOLOGY LABORATORY Final Diagnosis Specimen A. SKIN, right sup chest: SEBORRHEIC KERATOSIS, IRRITATED (L82.0) 0 1:20 PM [facility] DERMATOPATHOLOGY LABORATORY at [address] PHOTOGRAPHY AND PRINTS CURATOR Clinical History MM vs SK. Irreg color. 0 1:20 PM [facility] DERMATOPATHOLOGY LABORATORY Gross Description Specimen A: Received is one formalin filled container labeled with the patient's name and designated right sup chest. The specimen consists of a shave measuring 27h1i1ts. Jar 0. 0 1:20 PM [facility] DERMATOPATHOLOGY LABORATORY Microscopic Description Specimen A. SKIN, right sup chest: There is acanthosis consisting of fairly uniform squamous cells with eosinophilic cytoplasm and squamous eddies. 0 1:20 PM [facility] DERMATOPATHOLOGY LABORATORY Disclaimer An external and internal positive and negative controls are appropriate for the histochemical, immunohistochemical and immunofluorescence stain(s) in this case (if any), except where stated explicitly. The performance characteristics of the stain(s) cited in this report were developed and its performance characteristic determined by the Dermatopathology Laboratory at [facility], directed by Dr. Sandi Hubbard. These tests need not be, and therefore are not, approved by the [place] Food and Drug Administration. The tests are used for clinical purposes. Billing Codes Specimen Charges Stain Charges 58756 1 0 1:20 PM [facility] DERMATOPATHOLOGY LABORATORY Embedded Images 0 1:20 PM [facility] DERMATOPATHOLOGY LABORATORY Pathology/Cytolog y TISSUE SPECIMEN FROM SKIN / Unknown 08/01/2019 08/04/2019 7:48 AM [facility] us Gwen Gutiérrez MD LAB - PATHOLOGY/CYTOLOGY OR DERABLES Final Result DERMATOPATHOLOGY LABORATORY [facility] - Department of Dermatology [address] [place] [address], [address] [place] [address], [facility] [phone] documented in this encounter Visit Diagnoses Not on filedocumented in this encounter
--- OUTSIDE RECORDS SUMMARY | 2024-11-20 15:31 | XMS_ITS | Encounter Summary ---
Author Organization [facility] Address [address] [place] [address] Care Team Providers Care Automotive Service Writer Name Role Phone Unavailable Primary Care Provider Unavailabl e Encounter Details Date Type Department Care Team (Late st Contact Info) Description 09/03/2024 Lab Requisition [facility] - [facility]erm[facility] Lab [address] [facility] [place] [address] Johanna Wagner MD [address] [facility] [address] [place] [address] Social History Tobacco Use Types Packs/Day Years Used Date Smoking Tobacco: Former Cigarettes Q uit: 06/22/1993 Alcohol Use Standard Drinks/Week Comments No 0 (1 standard drink = 0.6 oz pur e alcohol) Sex and Gender Information Value Date Recorded Sex Assigned at Not on file Legal Sex Male 4:48 PM TRACER CLERK Gender Identity Not on file Sexual Orientation Not on file documented as of this encounter Plan of Treatment Not on file documented as of this encounter Procedures Procedure Name Priority Date/Time Associated Diagnosis Comments DERMATOPATHOLOGY Routine 09/03/2024 3:06 PM CDT documented in this encounter Results * DERMATOPATHOLOGY (09/03/2024 3:06 PM CDT) Case Report Dermatopathology Report Case: [id number] Authorizing Provider: Johanna Wagner MD Collected: 09/03/2024 03:06 PM Ordering Location: [facility] - Received: 09/05/2024 08:55 AM DermPath Lab Pathologist: Anastasiia Alvarez MD Specimens: A) - Skin, right neck B) - Skin, right calf 1:18 PM CDT DERMATOPATHOLOGY LABORATORY Final Diagnosis Specimen A. SKIN, right neck: BASAL CELL CARCINOMA, NODULAR TYPE (C44.41) Specimen B. 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 Sandi Hubbard. These tests need not be, and therefore are not, approved by the [place] Food and Drug Administration. The tests are used for clinical purposes. Billing Codes Specimen Charges Stain Charges 65490 98509 1 1 1:18 PM CDT DERMATOPATHOLOGY LABORATORY Embedded Images 1:18 PM CDT DERMATOPATHOLOGY LABORATORY Pathology/Cytology TISSUE SPECIMEN FROM SKIN / Unknown 09/03/2024 3:06 PM CDT 09/05/2024 8:55 AM CDT Miscellaneous samples (specimen) TISSUE SPECIMEN FROM SKIN / Unknown 09/03/2024 3:06 PM CDT 09/05/2024 8:55 AM CDT us Johanna Wagner MD LAB - PATHOLOGY/CYTOLOGY ORD ERABLES Final Result DERMATOPATHOLOGY LABORATORY [facility] - Department of Dermatology [facility] [address] [place] [address], [address] [phone] documented in this encounter Visit Diagnoses Not on filedocumented in this encounter
--- OUTSIDE RECORDS SUMMARY | 2024-11-20 15:31 | XMS_ITS | Continuity of Care Document ---
Author Organization [facility] Address [address] [place] [address] Phone Care Team Providers Care Dispatch Specialist Name Role Phone Michael Johnson DO Unavailable Unavailable Advance Directives Directive Yes / No Effective Date File Name No Information Encounters Encounter Description Practice Location Reason(s) For Visit Diagnoses Date Provider Providers Copied on Encounter [facility], [address], [place], [place], [id number], [place] tel:[phone] [facility] No Information Alex Stein. [address] [place], [address], [place]. tel: [phone] Family History Family Member Type Diagnosis Age At Onset No Information Payers Payer name Insurance type Covered democrat ID Authoriza tion(s) No Information Social History [...]
--- OUTSIDE RECORDS SUMMARY | 2024-11-20 15:31 | XMS_ITS | Referral Summary ---
Author Organization [facility] 1 Address [address] [place] [address] Care Team Providers Care Designer Writer Name Role Phone Lora Bajwa MD Unavailable [phone] Bhargavi Tena MD Primary Care Provider Encounters Date Type Department Care Team Description 10/23/2024 Orders Only [facility] Rheumatology [address] [place] [address] [address]nd Floor [address] [place] [phone] Chandana Maurice High risk medication use (Primary Dx) 10/17/2024 10:30 AM CDT - 10/17/2024 11:59 PM CDT Hospital Encounter [facility] [address] [place] [address] High risk medication use Discharge Disposition: Discharge to home or self care 10/17/2024 11:00 AM CDT Infusion [facility] Infusion Therapy [address] [place] [address] [address] [place] [phone] Rheumatoid arthritis of 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 (HCC) (Primary Dx) 08/20/2024 9:30 AM TRIPE SCRAPER Infusion [facility] Infusion Therapy [address] [place] [address] [address] [place] [phone] Rheumatoid arthritis of 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 (HCC) (Primary Dx) 08/20/2024 10:20 AM TRIPE SCRAPER Office Visit [facility] Rheumatology [address] [place], [place] [address] 2nd Floor [address] [place] [address] Malina Renteria NP Rheumatoid arthritis of 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 (HCC) (Primary Dx); High risk medication use from Last 3 Months Allergies No known [...] at bedtime 4 Active methotrexate 2.5 mg tabletIndicatio ns:Rheumatoid Arthritis Take 10 tablets (25 mg total) by mouth once a week 120 tablet 1 5 Active hydroxychloroqu ine (PLAQUENIL) 200 mg tabletIndicatio ns:Rheumatoid Arthritis Take 1 tablet (200 mg total) by mouth 2 (two) times a day 180 tablet 3 5 Active folic acid (FOLVITE) 1 mg tablet Take 1 tablet (1 mg total) by mouth daily 90 tablet 3 5 Active Active Problems Problem Noted Date Diagnosed [...] FOR AGE AND GENDER. Rheumatoid arthritis of mult iple sites with negative rheumatoid factor 03/05/2018 [...] on file Legal Sex Male 12:56 AM TRIPE SCRAPER Gender Identity Male 02/26/2020 6:57 AM CDT Sexual Orientation Straight 02/26/2020 6: 57 AM CDT Last Filed Vital Signs Vital Sign Reading Time Taken Comments Blood Pressure 143/90 08/20/2024 9:59 AM TRIPE SCRAPER Pulse 72 08/20/2024 9:59 AM TRIPE SCRAPER Temperature 36.3 C (97.4 F) 08/20/2024 9:59 AM TRIPE SCRAPER Respiratory Rate - - Oxygen Saturation 97% 08/20/2024 9:59 AM TRIPE SCRAPER Inhaled Oxygen Concentration - - Weight 126.5 kg (278 lb 12.8 oz) 08/20/2024 9:59 AM TRIPE SCRAPER Height 182.9 cm (6') 08/20/2024 9:59 AM TRIPE SCRAPER Body Mass Index 37.81 08/20/2024 9:59 AM TRIPE SCRAPER Plan of Treatment Not on file Procedures Procedure Name Priority Date/Time Associated Diagnosis Comments EGFR Routine 10/17/2024 10:30 AM CDT High risk medication use DIFFERENTIAL AUTO Routine 10/17/2024 10: 30 AM CDT High risk medication use CBC WITH AUTO DIFFERENTIAL Routine 10/17/2024 10:30 AM CDT High risk medication use COMPREHENSIVE METABOLIC PANEL Routine 10/17/2024 10:30 AM CDT High risk medication use CT ABDOMEN PELVIS WO CONTRAST Routine 10/17/2016 6:59 AM CDT from Last 3 Months or Most Recently Relevant to Health Maintenance Results * eGFR (10/17/2024 10:30 AM CDT) eGFR >90 >=60 mL/min/1. 73 m2 Comment: [...] interpretive data was last reviewed 2021. Blood 10/17/2024 10:3 0 AM CDT 10/17/2024 4:28 PM CDT us Malina Renteria NP LAB BLOOD ORDERABLES Final Result [facility] One [facility] Department [place] [address] * Differential, auto (10/17/2024 10:30 AM CDT) Neutrophil abs 2.74 1.50 - 6.50 K/cumm Imm gran abs 0.02 0.00 - 0.10 K/cumm [facility] Lymphocyte abs 2.38 0.80 - 3.30 K/cumm [facility] Monocyte abs 0.49 0.20 - 0.80 K/cumm [facility] Eosinophil abs 0.11 0.00 - 0.50 K/cumm [facility] Basophil abs 0.04 0.00 - 0.10 K/cumm [facility] Neutrophil pct 47.4 % [facility] Comment: Interpretive Data Percent cell count reference ranges are not reported, since discordance with absolute values may lead to misinterpretation of CBC data. Current Interpretive Data was last revised on 2017. Imm gran pct 0.3 % [facility] Comment: Interpretive Data Percent cell count reference ranges are not reported, since discordance with absolute values may lead to misinterpretation of CBC data. Current Interpretive Data was last revised on 2017. Lymphocyte pct 41.2 % [facility] Comment: Interpretive Data Percent cell count reference ranges are not reported, since discordance with absolute values may lead to misinterpretation of CBC data. Current Interpretive Data was last revised on 2017. Monocyte pct 8.5 % [facility] Comment: Interpretive Data Percent cell count reference ranges are not reported, since discordance with absolute values may lead to misinterpretation of CBC data. Current Interpretive Data was last revised on 2017. Eosinophil pct 1.9 % [facility] Comment: Interpretive Data Percent cell count reference ranges are not reported, since discordance with absolute values may lead to misinterpretation of CBC data. Current Interpretive Data was last revised on 2017. Basophil pct 0.7 % [facility] Comment: Interpretive Data Percent cell count reference ranges are not reported, since discordance with absolute values may lead to misinterpretation of CBC data. Current Interpretive Data was last revised on 2017. Blood 10/17/2024 10:3 0 AM CDT 10/17/2024 4:07 PM CDT us Malina Renteria NP LAB BLOOD ORDERABLES Final Result [facility] Department [place] [address] * CBC with auto differential (10/17/2024 10:30 AM CDT) [facility] WBC 5.78 3.80 - 9.90 K/cumm Hgb 15.3 13.0 - 17.5 g/dL [facility] Hct 45.5 38.9 - 50.3 % [facility] Plt 266 150 - 400 K/cumm [facility] MPV 10.8 9.1 - 12.3 fL [facility] RBC 4.84 4.30 - 5.80 M/cumm [facility] MCV 94.0 81.3 - 96.4 fL [facility] MCH 31.6 27.1 - 33.3 pg [facility] MCHC 33.6 32.3 - 35.7 g/dL [facility] RDW CV 13.4 11.1 - 14.9 % [facility] RDW SD 45.8 35.7 - 48.1 fL [facility] NRBC abs 0.00 0.00 - 0.01 K/cumm [facility] Blood 10/17/2024 10:3 0 AM CDT 10/17/2024 4:07 PM CDT us Malina Renteria NP LAB BLOOD ORDERABLES Final Result Performing Organization Address City/[facility]/ZIP Co de Phone Number [facility] Department [place] [address] * (ABNORMAL) Comprehensive metabolic panel (10/17/2024 10:30 AM CDT) [facility] Sodium 143 135 - 145 mmol/L Potassium, pl 4.2 3.3 - 4.9 mmol/L [facility] Chloride 105 97 - 110 mmol/L [facility] CO2 30 22 - 32 mmol/L [facility] Anion gap 8 2 - 15 mmol/L [facility] BUN 16 6 - 25 mg/dL [facility] Creatinine 0.82 0.80 - 1.30 mg/dL [facility] Glucose 135 70 - 199 mg/dL [facility] Comment: Interpretive Data Fasting glucose [...] 2022. Calcium 9.3 8.5 - 10.3 mg/dL [facility] Bilirubin, total 0.5 0.1 - 1.2 mg/dL [facility] Protein, pl 7.5 6.5 - 8.5 g/dL [facility] Albumin 3.9 3.5 - 5.0 g/dL [facility] Alk phos 78 40 - 130 Units/L [facility] ALT 60(H) 7 - 55 Units/L [facility] AST 68(H) 10 - 50 Units/L [facility] Blood 10/17/2024 10:3 0 AM CDT 10/17/2024 4:07 PM CDT us Malina Renteria NP LAB BLOOD ORDERABLES Final Result Performing Organization Address City/State/[facility] Co de Phone Number [facility] One [facility] Department [place] [address] * CT Abdomen Pelvis WO Contrast (10/17/2016 [...] AM: Guillermo Park M.D. Guillermo Park M.D. HL:ricardo 07:47 AM 07:47 AM MHE [EOD] Asad Woody MD IMG CT PROCEDURES Final R esult from Last 3 Months or Most Recently Relevant to Health Maintenance Insurance MEDICARE [employer] MEDICARE [facility] CLAIMS MEDICARE [facility] LIFE Advance Directives For more information, please contact: [phone] Documents on File Type Date Recorded Patient Pickler Helper Expl anation ADVANCE DIRECTIVE 12/28/2011 12:00 AM CHRIST Minaya OF LABEL FOLDER FINANCIAL/MEDICAL Care Teams Designer Writer Relationship Specialty Start Date End Date Bhargavi Tena MD [address] [facility] [address] [place] [address] PCP - General Family Medicine 11/30/20 Lora Bajwa MD [address] [place] [address] Referring Physician Family Practice 11/20/18
--- OUTSIDE RECORDS SUMMARY | 2024-11-20 15:31 | XMS_ITS | Clinical Summary ---
Author Organization [facility] 1 Address [address] [place] [address] Care Team Providers Care Wire Frame Lamp Shade Maker Name Role Phone Lora Bajwa MD Unavailable [phone] Bhargavi Tena MD Primary Care Provider Allergies [...] Department Care Team Description 10/23/2024 Orders Only [facility] [address] [facility] [address]nd [address] [place] [address] Chandana Maurice High risk medication use (Primary Dx) 10/17/2024 11:00 AM CDT Infusion [facility] [address] [facility] 2nd [address] [place] [address] Rheumatoid arthritis of 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 (HCC) (Primary Dx) 10/17/2024 10:30 AM CDT - 10/17/2024 11:59 PM CDT Hospital Encounter [facility] [address] [place] [address] High risk medication use Discharge Disposition: Discharge to home or self care 08/20/2024 10:20 AM DOLL MAKER Office Visit [facility] [address] [facility] [address]nd [address] [place] [address] Malina Renteria NP Rheumatoid arthritis of 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 (HCC) (Primary Dx); High risk medication use 08/20/2024 9:30 AM DOLL MAKER Infusion [facility] [address] [facility] 2[address] [place] [address] Rheumatoid arthritis of 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 (HCC) (Primary Dx) from Last 3 Months Surgical History Surgery [...] History Relation Name Comments Cancer Father Lincoln Sean Fleming Sr Diabetes Father Lincoln Sean Fleming Sr Fa yvette history of diabetes [...] on file Legal Sex Male 12:56 AM DOLL MAKER Gender Identity Male 02/26/2020 6:57 AM CDT Sexual Orientation Straight 02/26/2020 6: 57 AM CDT Obstetrics History Last Filed Vital Signs Vital Sign Reading Time Taken Comments Blood Pressure 143/90 08/20/2024 9:59 AM DOLL MAKER Pulse 72 08/20/2024 9:59 AM DOLL MAKER Temperature 36.3 C (97.4 F) 08/20/2024 9:59 AM DOLL MAKER Respiratory Rate - - Oxygen Saturation 97% 08/20/2024 9:59 AM DOLL MAKER Inhaled Oxygen Concentration - - Weight 126.5 kg (278 lb 12.8 oz) 08/20/2024 9:59 AM DOLL MAKER Height 182.9 cm (6') 08/20/2024 9:59 AM DOLL MAKER Body Mass Index 37.81 08/20/2024 9:59 AM DOLL MAKER Plan of Treatment Health Maintenance Due Date [...] PCV) 05/18/2021 05/18/2020, 03/18/2015, 03/15/2015 Influenza Vaccine (Season Ended) 2025 01/31/2023, 01/17/2023, 02/19/2020, Additional history exists eGFR 10/17/2025 10/17/2024, 08/2024, 02/26/2024, Additional history exists DTaP/Tdap/Td Vaccine (4 - [...] of Race in Diagnosing Kidney Disease, JASN 202). The CKD-EPI equation should not be used for patients with unstable renal function and has not been validated in children and those over 70. Current interpretive data was last reviewed 2021. Blood 10/17/2024 10:3 0 AM CDT 10/17/2024 4:28 PM CDT us Malina Renteria SILVER HOLLOWARE ASSEMBLER LAB BLOOD ORDERABLES Final Result [facility] One [facility] Department [place] [address] * Differential, auto (10/17/2024 10:30 AM CDT) Neutrophil abs 2.74 1.50 - 6.50 K/cumm Imm gran abs 0.02 0.00 - 0.10 K/cumm [facility] Lymphocyte abs 2.38 0.80 - 3.30 K/cumm [facility] Monocyte abs 0.49 0.20 - 0.80 K/cumm [facility] Eosinophil abs 0.11 0.00 - 0.50 K/cumm [facility] Basophil abs 0.04 0.00 - 0.10 K/cumm [facility] Neutrophil pct 47.4 % [facility] Comment: Interpretive Data Percent cell count reference ranges are not reported, since discordance with absolute values may lead to misinterpretation of CBC data. Current Interpretive Data was last revised on 2017. Imm gran pct 0.3 % [facility] Comment: Interpretive Data Percent cell count reference ranges are not reported, since discordance with absolute values may lead to misinterpretation of CBC data. Current Interpretive Data was last revised on 2017. Lymphocyte pct 41.2 % [facility] Comment: Interpretive Data Percent cell count reference ranges are not reported, since discordance with absolute values may lead to misinterpretation of CBC data. Current Interpretive Data was last revised on 2017. Monocyte pct 8.5 % [facility] Comment: Interpretive Data Percent cell count reference ranges are not reported, since discordance with absolute values may lead to misinterpretation of CBC data. Current Interpretive Data was last revised on 2017. Eosinophil pct 1.9 % [facility] Comment: Interpretive Data Percent cell count reference ranges are not reported, since discordance with absolute values may lead to misinterpretation of CBC data. Current Interpretive Data was last revised on 2017. Basophil pct 0.7 % [facility] Comment: Interpretive Data Percent cell count reference ranges are not reported, since discordance with absolute values may lead to misinterpretation of CBC data. Current Interpretive Data was last revised on 2017. Blood 10/17/2024 10:3 0 AM CDT 10/17/2024 4:07 PM CDT Malina Renteria SILVER HOLLOWARE ASSEMBLER LAB BLOOD ORDERABLES Final Result [facility] One [facility] [place] [address] * CBC with auto differential (10/17/2024 10:30 AM CDT) WBC 5.78 3.80 - 9.90 K/cumm Hgb 15.3 13.0 - 17.5 g/dL [facility] Hct 45.5 38.9 - 50.3 % [facility] Plt 266 150 - 400 K/cumm [facility] MPV 10.8 9.1 - 12.3 fL [facility] RBC 4.84 4.30 - 5.80 M/cumm [facility] MCV 94.0 81.3 - 96.4 fL [facility] MCH 31.6 27.1 - 33.3 pg [facility] MCHC 33.6 32.3 - 35.7 g/dL [facility] RDW CV 13.4 11.1 - 14.9 % [facility] RDW SD 45.8 35.7 - 48.1 fL [facility] NRBC abs 0.00 0.00 - 0.01 K/cumm [facility] Blood 10/17/2024 10:3 0 AM CDT 10/17/2024 4:07 PM CDT us Malina Renteria NP LAB BLOOD ORDERABLES Final Result [facility] One [facility] [place] [address] * (ABNORMAL) Comprehensive metabolic panel (10/17/2024 10:30 AM CDT) Sodium 143 135 - 145 mmol/L Potassium, pl 4.2 3.3 - 4.9 mmol/L [facility] Chloride 105 97 - 110 mmol/L [facility] CO2 30 22 - 32 mmol/L [facility] Anion gap 8 2 - 15 mmol/L [facility] BUN 16 6 - 25 mg/dL [facility] Creatinine 0.82 0.80 - 1.30 mg/dL [facility] Glucose 135 70 - 199 mg/dL [facility] Comment: Interpretive Data Fasting glucose >/= 126 [...] 2022. Calcium 9.3 8.5 - 10.3 mg/dL [facility] Bilirubin, total 0.5 0.1 - 1.2 mg/dL [facility] Protein, pl 7.5 6.5 - 8.5 g/dL [facility] Albumin 3.9 3.5 - 5.0 g/dL [facility] Alk phos 78 40 - 130 Units/L [facility] ALT 60(H) 7 - 55 Units/L [facility] AST 68(H) 10 - 50 Units/L [facility] Blood 10/17/2024 10:3 0 AM CDT 10/17/2024 4:07 PM CDT us Malina Renteria SILVER HOLLOWARE ASSEMBLER LAB BLOOD ORDERABLES Final Result [facility] One [facility] [place] [address] * CT Abdomen Pelvis WO Contrast (10/17/2016 [...] Recently Relevant to Health Maintenance Insurance MEDICARE [facility] MEDICARE [facility] MEDICARE [facility] Advance Directives For more information, please contact: [phone] Documents on File Type Date Recorded Patient Diamond Merchant Expl anation ADVANCE DIRECTIVE 12/28/2011 12:00 AM CHRIST R OF OIL PUMP STATION OPERATOR CHIEF FINANCIAL/MEDICAL Care Teams Wire Frame Lamp Shade Maker Relationship Specialty Start Date End Date Bhargavi Tena MD [address] [place] [place] [address] PCP - General Family Medicine 11/30/20 Lora Bajwa MD [address] [place] [address] Referring Physician Family Practice 11/20/18
--- OUTSIDE RECORDS SUMMARY | 2024-11-20 15:31 | XMS_ITS | Encounter Summary ---
Author Organization [facility] Address [address] [place] [address] Phone Care Team Providers Care Court Advocate Name Role Phone Lora Bajwa MD Unavailable [phone] Amanda Villa DO Primary Care Provider [phone] Bhargavi Tena MD Primary Care Provider Encounter Details Date Type Department Care Team (Late st Contact Info) Description 08/27/2020 Orders Only [facility] Scanning, Provider Social History Tobacco Use Types Packs/Day Years Used Date Smoking Tobacco: Former Cigarettes Q uit: 12/19/1993 Smokeless Tobacco: Never Sex and Gender Information Value Date Recorded Sex Assigned at Not on file Legal Sex Male 12:56 AM THEATRICAL AGENT Gender Identity Male 02/26/2020 6:57 AM CDT [...] on filedocumented in this encounter Care Teams Court Advocate Relationship Specialty Start Date End Date Amanda Villa DO [address] [place] [address] PCP - General 12/03/19 11/29/20 Bhargavi Tena MD [address] [facility] [address] [place] [address] PCP - General Family Medicine 11/30/20 Lora Bajwa MD [address] [place] [address] Referring Physician Family Practice 11/20/18 documented as of this encounter
--- OUTSIDE RECORDS SUMMARY | 2024-11-20 15:31 | XMS_ITS | Encounter Summary ---
Author Organization [facility] Address [address] [place] [address] Phone Care Team Providers Care Switch Crew Supervisor Name Role Phone Mk Lewis MD Primary Care Provider [phone] Lora Bajwa MD Primary Care Provider Lora Bajwa MD Unavailable [phone] Amanda Villa DO Primary Care Provider [phone] Bhargavi Tena MD Primary Care Provider Encounter Details Date Type Department Care Team (Late st Contact Info) Description 11/25/2015 Orders Only [facility] Scanning, Provider Social History Tobacco Use Types Packs/Day Years Used Date Smoking Tobacco: Never Assessed Sex and Gender Information Value Date Recorded Sex Assigned at Not on file Legal Sex Male 12:56 AM PLANT QUALITY MANAGER Gender Identity Male 02/26/2020 6:57 AM [...] on filedocumented in this encounter Care Teams Switch Crew Supervisor Relationship Specialty Start Date End Date Mk Lewis MD PCP - General 12/05/16 03/06/17 Lora Bajwa MD [address] [facility], [place] [address] PCP - General 03/07/17 12/02/19 Amanda Villa DO [address] [facility], [place] [address] PCP - General 12/03/19 11/29/20 Bhargavi Tena MD [address] [facility] [address] [place], [place] [id number] PCP - General Family Medicine 11/30/20 Lora Bajwa MD [address] [facility], [place] [address] Referring Physician Family Practice 11/20/18 documented as of this encounter
--- OUTSIDE RECORDS SUMMARY | 2024-11-20 15:31 | XMS_ITS | Encounter Summary ---
Author Organization [facility] Address [address] [facility] [place] [address] Care Team Providers Care Loading Dock Helper Name Role Phone Unavailable Primary Care Provider Unavailabl e Encounter Details Date Type Department Care Team (Late st Contact Info) Description 02/14/[address] [facility] Care [facility] Lab [address] [facility], [place] [address] Gwen Gutiérrez MD [address] [facility] [address] [place] [address] Social History Tobacco Use Types Packs/Day Years Used Date Smoking Tobacco: Former Cigarettes Q uit: 06/22/1993 Alcohol Use Standard Drinks/Week Comments No 0 (1 standard drink = 0.6 oz pur e alcohol) Sex and Gender Information Value Date Recorded Sex Assigned at Not on file Legal Sex Male 4:48 PM MEDIA PROFESSIONAL Gender Identity Not on file Sexual Orientation Not on file documented as of this encounter Plan of Treatment Not on file documented as of this encounter Procedures Procedure Name Priority Date/Time Associated Diagnosis Comments DERMATOPATH TECHNICAL REPORT Routine 02/12/2018 12:00 AM CDT documented in this encounter Results * DERMATOPATH TECHNICAL REPORT (02/12/2018 12:00 AM CDT) Case Report Dermatopathology Report Case: [id number] Authorizing Provider: Gwen Gutiérrez MD Collected: 02/12/2018 [...] consists of a shave (2 pieces) measuring [id number] & [id number]. The margins are inked green. Jar 0. [facility] Dermatopathology Laboratory performed the technical component only. [...] characteristic determined by the Dermatopathology Laboratory at [facility]. These tests need not be, and therefore are not, approved by the [place] Food and Drug Administration. The tests are used for clinical purposes. 1:19 PM [facility] DERMATOPATHOLOGY [facility]ORATORY at 1319 CDT Pathology/Cytolog y TISSUE SPECIMEN FROM SKIN / Unknown 02/12/2018 02/14/2018 6:14 AM CDT Gwen Gutiérrez MD LAB - PATHOLOGY/CYTOLOGY OR DERABLES Final Result DERMATOPATHOLOGY LABORATORY [facility] - Department of Dermatology [address] [place] [address], 5th [place] [address], [facility] [phone] documented in this encounter Visit Diagnoses Not on filedocumented in this encounter
== END 2024-11-20 14:53 | disposition home or self-care (01) ==
PROVIDERS: PCP Family Medicine; Visit Provider Physician Assistant
DX: S32.040A Wedge compression fracture of fourth lumbar vertebra, initial encounter for closed fracture (principal); X58.XXXA Exposure to other specified factors, initial encounter
CPT/HCPCS: 72100; 72220

== ENCOUNTER 2024-11-28 09:03 | Outpatient (CLI) | payer MEDICARE, OTHER, SELFPAY ==
--- NOTE | ~2024-11-28 | CT_ITS ---
Noncontrast CT scan of the lumbar spine CLINICAL HISTORY: L4 compression fracture TECHNIQUE: Axial noncontrast imaging of the lumbar spine was performed. Sagittal and coronal reformat treva images were constructed. Dose reduction technique was used on this scan by utilizing automated ex posure control and iterative reconstruction technique. The dose-length product (DLP) was 1009.52 mGy- cm. FINDINGS: There is moderate L4 compression fracture deformity, new as compared to prior CT dated 05/23. No other fracture or subluxation seen in the lumbar spine. There are anterior osteophytes from L2 through L4, suggestive of developing DISH. At L1-L2, there is minimal disc bulge with mild to moderate facet arthropathy. No jenni central canal stenosis. There is moderate bilateral neural foraminal narrowing. At L2-L3, there is minimal disc bulge with mild to moderate facet arthropathy. There is mild to moder ate central canal stenosis. There is severe bilateral neural foraminal narrowing. At L3-L4, there is disc bulge and facet arthropathy, resulting in severe spinal canal stenosis/thecal sac compression. There is severe left neural foraminal narrowing, and moderate to severe right neura l foraminal narrowing. At L4-L5, there is disc bulge and mild facet arthropathy. Possible minimal central canal stenosis. Th ere is moderate to advanced bilateral neural foraminal narrowing. At L5-S1, there is minimal disc bulge. No spinal canal stenosis or definite neural foraminal narrowin g. Paravertebral soft tissues are unremarkable. Probable parapelvic renal cysts bilaterally. Impression: Moderate L4 compression fracture, somewhat age indeterminate, but definitely new since 05/23/2024. Cor relate with patient's symptomatology. Consider MR to evaluate for acute marrow edema as indicated. Advanced degenerative spondylosis in the lumbar spine, with multilevel spinal canal stenosis and mult ilevel advanced neural foraminal narrowing, as detailed above. Reviewed, dictated and finalized at location . Impression: Moderate L4 compression fracture, somewhat age indeterminate, but definitely ne w since 05/23/2024. Correlate with patient's symptomatology. Consider MR to eval uate for acute marrow edema as indicated. Advanced degenerative spondylosis in the lumbar spine, with multilevel spinal c anal stenosis and multilevel advanced neural foraminal narrowing, as detailed guy peralta.
== END 2024-11-28 09:04 | disposition home or self-care (01) ==
LOC: MICIMG 09:04
PROVIDERS: PCP Family Medicine
DX: S32.040A Wedge compression fracture of fourth lumbar vertebra, initial encounter for closed fracture (principal); M54.42 Lumbago with sciatica, left side; X58.XXXA Exposure to other specified factors, initial encounter; M47.896 Other spondylosis, lumbar region
CPT/HCPCS: 72131

== ENCOUNTER 2024-12-10 08:11 | Outpatient (CLI) | payer MEDICARE, OTHER, SELFPAY ==
--- NOTE | ~2024-12-10 | DEXA_ITS ---
Bone Density Report Name: DANO CORNELL Age: 69 Sex: Male Ethnicity: White Date of : 1955 Indication: prior fracture; rheumatoid arthritis; Referring Provider: NAYLA KRISHNAN Study: Bone densitometry was performed. Exam Date: December 10, 2024 Accession number: [id number] Bone Density: Region BMD T-score Z-score Classification AP Spine(L1-L4) 1.053 -0.3 0.5 Normal Femoral Neck (Left) 0.848 -0.6 0.6 Normal Total Hip (Left) 1.181 1.0 1.6 Normal Femoral Neck (Right) 0.773 -1.2 0.0 Osteopenia Total Hip (Right) 1.075 0.3 0.9 Normal Total Hip Mean 1.128 0.7 1.3 Normal World Health Organization criteria for BMD impression classify patients as: Normal (T-score at or above -1.0), Osteopenia (T-score between -1.0 and -2.5), or Osteoporosis (T-score at or below -2.5). 10-year Fracture Risk: FRAX not reported because: Prior hip or vertebral fracture Clinical Information Provided by Patient: Have had a previous hip or vertebral fracture Has had a low trauma fracture Has rheumatoid arthritis Has used the following medications: Calcium Patient maximum height was 72 No regular weight bearing exercise Drinks caffeinated beverages Impression: The patient has low bone mass, based on the Right Femoral Neck T-score. The patient has risk factors, including: previous fracture. Discussion: INCREASED RISK OF FRACTURE DUE TO HISTORY OF LOW TRAUMA FRACTURE. The patient's previous fracture puts the patient at high risk of a future fracture. In untreated patients, the risk of osteoporotic fracture increases approximately two-fold for each 1.0 SD decrease in T-score. Low bone density is not the only risk factor for fracture; also consider factors such as patient's age, frailty or poor health, risk of falling, risk of injury, previous osteoporotic fracture, family history of osteoporosis, cigarette smoking, low body weight, etc. Not everyone with a low trauma fracture has osteoporosis; osteomalacia and other metabolic bone disorders should also be considered. Patients who have osteoporosis should be evaluated for specific diseases and conditions (secondary causes) that may cause or contribute to bone loss and fracture risk. National Osteoporosis Foundation (NOF) recommends pharmacologic intervention for patients with a prior low trauma hip or vertebral fracture regardless of BMD T-score. The patient should follow a healthful lifestyle (good nutrition with adequate calcium and vitamin D, and appropriate weight-bearing exercise). Follow-Up: Consider a repeat BMD and Vertebral Fracture Assessment (VFA) exam in 2 years or sooner if medically necessary, to reassess this patient's status. Reported by: OMER on 12/10/2024 8:45:00 AM. Reviewed, dictated and finalized at location A.
== END 2024-12-10 08:12 | disposition home or self-care (01) ==
LOC: MICIMG 08:12
PROVIDERS: PCP Family Medicine
DX: M48.56XA Collapsed vertebra, not elsewhere classified, lumbar region, initial encounter for fracture (principal); M85.851 Other specified disorders of bone density and structure, right thigh
CPT/HCPCS: 77080

== ENCOUNTER 2025-01-02 07:53 | Outpatient (CLI) | payer MEDICARE, OTHER, SELFPAY ==
--- NOTE | ~2025-01-02 | XR_ITS ---
3 VIEWS LUMBAR SPINE Ordering provider: Yamileth Restrepo APRN History: . S32.040A - Wedge compression fracture of fourth lumbar ve... . Comparison: November 20, 2024 FINDINGS: VERTEBRAL BODIES:Compression fracture of the superior endplate of L4 unchanged from previous examinat ion. Old compression fracture of L1 is also noted. No subluxation. Degenerative changes of the spine. DISK SPACES: Slight narrowing of the disc L4-L5. Multilevel facet joint disease. Left sacroiliitis. SOFT TISSUES: Normal. IMPRESSION: Compression fracture of L4 unchanged from previous examination. Multilevel facet joint disease. Reviewed, dictated and finalized at location A.
--- OUTSIDE RECORDS SUMMARY | 2025-01-02 07:59 | XMS_ITS | Clinical Summary ---
Author Organization [facility] Address [address] [place] [address] Care Team Providers Care Learning Administrator Name Role Phone Bhargavi Tena MD Primary Care Provider [phone] Social History Tobacco Use Types Packs/Day Years [...] and Td Vaccines (1 - Tdap) 1974 Pneumococcal Vaccine: 50+ Years (2 of 2 - PCV) 03/18/2016 03/18/2015 Annual Medicare Wellness Visit 2020 COVID-19 Vaccine ( season) 2024 03/23/2023, 02/22/2022, 09/25/2021, Additional history exists Zoster Vaccines Completed 10/03/2022, 05/09/2022 RSV Immunization [...] patient's age to complete this topic Insurance [employer] MEDICARE Care Teams Learning Administrator Relationship Specialty Start Date End Date Bhargavi Tena MD [address] [facility] [address] [place] [address] PCP - General FAMILY PRACTICE 09/20/23
--- OUTSIDE RECORDS SUMMARY | 2025-01-02 08:00 | XMS_ITS | Encounter Summary ---
Author Organization [facility] Address [address] [place] [address] Phone Care Team Providers Care Clinical Cytogeneticist Scientist Name Role Phone Lora Bajwa MD Unavailable [phone] Amanda Villa DO Primary Care Provider [phone] Bhargavi Tena MD Primary Care Provider Encounter Details Date Type Department Care Team (Late st Contact Info) Description 08/27/2020 Orders Only [facility] Scanning, Provider Social History Tobacco Use Types Packs/Day Years Used Date Smoking Tobacco: Former Cigarettes Q uit: 12/19/1993 Smokeless Tobacco: Never Sex and Gender Information Value Date Recorded Sex Assigned at Not on file 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
--- OUTSIDE RECORDS SUMMARY | 2025-01-02 08:00 | XMS_ITS | Referral Summary ---
Author Organization [facility] Address [address] [place] [address] Care Team Providers Care Breaker Up Name Role Phone Lora Bajwa MD Unavailable [phone] Bhargavi Tena MD Primary Care Provider Encounters Date Type Department Care Team Description 12/11/2024 Telephone [facility] Rheumatology [address] [facility] 2nd Floor [address] [place] [phone] Chandana Maurice 10/23/2024 Orders Only [facility] [address] [facility] 2nd Floor [address] [place] [phone] Chandana Maurice High risk medication use (Primary Dx) 10/17/2024 10:30 AM CDT - 10/17/2024 11:59 PM CDT Hospital Encounter [address] [address] High risk medication use Discharge Disposition: Discharge to home or self care 10/17/2024 11:00 AM CDT Infusion [facility] Infusion Therapy [address] [place] [phone] Rheumatoid arthritis of multiple sites with negative [...] FOR AGE AND GENDER. 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 Gender Identity Male 02/26/2020 6:57 AM CDT Sexual Orientation Straight 02/26/2020 6: 57 AM CDT Last Filed Vital Signs Vital Sign Reading Time Taken Comments Blood Pressure 143/90 08/20/2024 9:59 AM CORPORATE RECRUITER Pulse 72 08/20/2024 9:59 AM CORPORATE RECRUITER Temperature 36.3 C (97.4 F) 08/20/2024 9:59 AM CORPORATE RECRUITER Respiratory Rate - - Oxygen Saturation 97% 08/20/2024 9:59 AM CORPORATE RECRUITER Inhaled Oxygen Concentration - - Weight 126.5 kg (278 lb 12.8 oz) 08/20/2024 9:59 AM CORPORATE RECRUITER Height 182.9 cm (6') 08/20/2024 9:59 AM CORPORATE RECRUITER Body Mass Index 37.81 08/20/2024 9:59 AM CORPORATE RECRUITER Plan of Treatment Not on file Procedures [...] Renteria NP LAB BLOOD ORDERABLES Final Result [facility] [place] [address] * Differential, auto (10/17/2024 10:30 AM CDT) Neutrophil abs 2.74 1.50 - 6.50 K/cumm Imm gran abs 0.02 0.00 - 0.10 K/cumm [facility] Lymphocyte abs 2.38 0.80 - 3.30 K/cumm [facility] Monocyte abs 0.49 0.20 - 0.80 K/cumm [facility] Eosinophil abs 0.11 0.00 - 0.50 K/cumm [facility] Basophil abs 0.04 0.00 - 0.10 K/cumm [facility] Neutrophil pct 47.4 % [facility] Comment: Interpretive Data Percent cell count reference ranges are not reported, since discordance with absolute values may lead to misinterpretation of CBC data. Current Interpretive Data was last revised on 2017. Imm gran pct 0.3 % [facility] Comment: Interpretive Data Percent cell count reference ranges are not reported, since discordance with absolute values may lead to misinterpretation of CBC data. Current Interpretive Data was last revised on 2017. Lymphocyte pct 41.2 % [facility] Comment: Interpretive Data Percent cell count reference ranges are not reported, since discordance with absolute values may lead to misinterpretation of CBC data. Current Interpretive Data was last revised on 2017. Monocyte pct 8.5 % [facility] Comment: Interpretive Data Percent cell count reference ranges are not reported, since discordance with absolute values may lead to misinterpretation of CBC data. Current Interpretive Data was last revised on 2017. Eosinophil pct 1.9 % [facility] Comment: Interpretive Data Percent cell count reference ranges are not reported, since discordance with absolute values may lead to misinterpretation of CBC data. Current Interpretive Data was last revised on 2017. Basophil pct 0.7 % [facility] Comment: Interpretive Data Percent cell count reference ranges are not reported, since discordance with absolute values may lead to misinterpretation of CBC data. Current Interpretive Data was last revised on 2017. Blood 10/17/2024 10:3 0 AM CDT 10/17/2024 4:07 PM CDT us Malina Renteria NP LAB BLOOD ORDERABLES Final Result [facility] [place] [address] * CBC with auto differential (10/17/2024 10:30 AM CDT) WBC 5.78 3.80 - 9.90 K/cumm Hgb 15.3 13.0 - 17.5 g/dL [facility] Hct 45.5 38.9 - 50.3 % [facility] Plt 266 150 - 400 K/cumm [facility] MPV 10.8 9.1 - 12.3 fL [facility] RBC 4.84 4.30 - 5.80 M/cumm [facility] MCV 94.0 81.3 - 96.4 fL [facility] MCH 31.6 27.1 - 33.3 pg [facility] MCHC 33.6 32.3 - 35.7 g/dL [facility] RDW CV 13.4 11.1 - 14.9 % [facility] RDW SD 45.8 35.7 - 48.1 fL [facility] NRBC abs 0.00 0.00 - 0.01 K/cumm [facility] Blood 10/17/2024 10:3 0 AM CDT 10/17/2024 4:07 PM CDT Malina Renteria PRODUCT MARKETING ENGINEER LAB BLOOD ORDERABLES Final Result [facility] [place] [address] * (ABNORMAL) Comprehensive metabolic panel (10/17/2024 10:30 AM CDT) [facility] Sodium 143 135 - 145 mmol/L Potassium, pl 4.2 3.3 - 4.9 mmol/L [facility] Chloride 105 97 - 110 mmol/L [facility] CO2 30 22 - 32 mmol/L [facility] Anion gap 8 2 - 15 mmol/L [facility] BUN 16 6 - 25 mg/dL [facility] Creatinine 0.82 0.80 - 1.30 mg/dL [facility] Glucose 135 70 - 199 mg/dL [facility] Comment: Interpretive Data Fasting glucose [...] Calcium 9.3 8.5 - 10.3 mg/dL [facility] Bilirubin, total 0.5 0.1 - 1.2 mg/dL [facility] Protein, pl 7.5 6.5 - 8.5 g/dL [facility] Albumin 3.9 3.5 - 5.0 g/dL [facility] Alk phos 78 40 - 130 Units/L [facility] ALT 60(H) 7 - 55 Units/L [facility] AST 68(H) 10 - 50 Units/L [facility] Blood 10/17/2024 10:3 0 AM CDT 10/17/2024 4:07 PM CDT us Malina Renteria NP LAB BLOOD ORDERABLES Final Result [facility] Department [place] [address] * CT Abdomen Pelvis WO Contrast (10/17/2016 [...] Recently Relevant to Health Maintenance Insurance MEDICARE [employer] [facility] MEDICARE [facility] MEDICARE [facility] Address: [facility] [address] [place] [address] FOR LIFE Advance Directives For more information, please contact: [phone] Documents on File Type Date 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
--- OUTSIDE RECORDS SUMMARY | 2025-01-02 08:00 | XMS_ITS | Encounter Summary ---
Author Organization [facility] Address [address] [place] [address] Phone Care Team Providers Care Biblical Languages Professor Name Role Phone Lora Bajwa MD Unavailable [phone] Bhargavi Tena MD Primary Care Provider Encounter Details Date Type Department Care Team (Late st Contact Info) Description 03/02/2021 Orders Only [facility] Scanning, Provider Social History Tobacco Use Types Packs/Day Years Used Date Smoking Tobacco: Former Cigarettes Q uit: 12/19/1993 Smokeless Tobacco: Never Sex and Gender Information Value Date Recorded Sex Assigned at Not on file 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
--- OUTSIDE RECORDS SUMMARY | 2025-01-02 08:00 | XMS_ITS | Encounter Summary ---
Author Organization [facility] Address [address] [facility] [place] [address] Care Team Providers Care Buckle Sorter Name Role Phone Unavailable Primary Care Provider Unavailabl e Encounter Details Date Type Department Care Team (Late st Contact Info) Description 10/27/2024 Lab Requisition [facility] Physician [facility] Lab [address] [facility] [place] [phone] Johanna Wagner MD [address] [facility] [address] [place] [address] Social History Tobacco Use Types Packs/Day Years Used Date Smoking Tobacco: Former Cigarettes Q uit: 06/22/1993 Alcohol Use Standard Drinks/Week Comments No 0 (1 standard drink = 0.6 oz pur e alcohol) Sex and Gender Information Value Date Recorded Sex Assigned at Not on file 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 Gender Identity Not on file Sexual Orientation Not on file documented as of this encounter Plan of Treatment Not on file documented as of this encounter Procedures Procedure Name Priority Date/Time Associated Diagnosis Comments DERMATOPATHOLOGY Routine 10/27/2024 8:24 AM CDT documented in this encounter Results * DERMATOPATHOLOGY (10/27/2024 8:24 AM CDT) Case Report Dermatopathology Report Case: [id number] Authorizing Provider: Johanna Wagner MD Collected: 10/27/2024 08:24 AM Ordering Location: [facility] - Received: 10/27/2024 01:08 PM [...] auricular.The specimen consists of an ellipse measuring [id number] mm and is oriented with the suture/notch [...] characteristic determined by the Dermatopathology Laboratory at [facility], directed by Dr. Sandi Hubbard. These tests need not be, and therefore are not, approved by the [place] Food and Drug Administration. The tests are used for clinical purposes. Billing Codes Specimen Charges Stain Charges 83085 1 5 12:44 PM CDT DERMATOPATHOLOGY LABORATORY Embedded Images 12:44 PM CDT DERMATOPATHOLOGY LABORATORY Pathology/Cytolo gy TISSUE SPECIMEN FROM SKIN / Unknown 10/27/2024 8:24 AM CDT 10/27/2024 1:08 PM CDT us Johanna Wagner MD LAB - PATHOLOGY/CYTOLOGY ORD ERABLES Final Result DERMATOPATHOLOGY LABORATORY [facility] - Department of Dermatology [facility] Specialized Medicine [address] [place] [address], [address] [phone] documented in this encounter Visit Diagnoses Not on filedocumented in this encounter
--- OUTSIDE RECORDS SUMMARY | 2025-01-02 08:00 | XMS_ITS | Clinical Summary ---
Author Organization [facility] Address [address] [place] [address] Care Team Providers Care Whitewasher Name Role Phone Lora Bajwa MD Unavailable [phone] Bhargavi Tena MD Primary Care Provider Allergies [...] AGE AND GENDER. [facility] with negative rheumatoid factor 03/05/2018 High risk medication use 03/05/2018 Obesity with body mass index 30 or greater 06/06 Joint stiffness 06/06/2017 Arthritis 09/02/2015 Swelling of hand 09/01/2015 Lumbago 09/01/2015 Joint pain 09/01/2015 Encounters Date Type Department Care Team Description 12/11/2024 Telephone [facility] Rheumatology [address]nd [address] [place] [address] Chandana Maurice 10/23/2024 Orders Only [facility] Rheumatology [address] [place] [address] Chandana Maurice High risk medication use (Primary Dx) 10/17/2024 11:00 AM CDT Infusion 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 Gender Identity Male 02/26/2020 6:57 AM CDT Sexual Orientation Straight 02/26/2020 6: 57 AM CDT Obstetrics History Last Filed Vital Signs Vital Sign Reading Time Taken Comments Blood Pressure 143/90 08/20/2024 9:59 AM ANTHROPOLOGY FACULTY MEMBER Pulse 72 08/20/2024 9:59 AM ANTHROPOLOGY FACULTY MEMBER Temperature 36.3 C (97.4 F) 08/20/2024 9:59 AM ANTHROPOLOGY FACULTY MEMBER Respiratory Rate - - Oxygen Saturation 97% 08/20/2024 9:59 AM ANTHROPOLOGY FACULTY MEMBER Inhaled Oxygen Concentration - - Weight 126.5 kg (278 lb 12.8 oz) 08/20/2024 9:59 AM ANTHROPOLOGY FACULTY MEMBER Height 182.9 cm (6') 08/20/2024 9:59 AM ANTHROPOLOGY FACULTY MEMBER Body Mass Index 37.81 08/20/2024 9:59 AM ANTHROPOLOGY FACULTY MEMBER Plan of Treatment Health Maintenance Due Date [...] 05/18/2021 05/18/2020, 03/18/2015, 03/15/2015 Influenza Vaccine (#1) 2025 , 01/17/2023, 02/19/2020, Additional history exists eGFR 10/17/2025 10/17/2024, 01/0 08/2024, 02/26/2024, Additional history exists DTaP/Tdap/Td Vaccine [...] NP LAB BLOOD ORDERABLES Final Result [facility] Department [place] [address] * Differential, auto (10/17/2024 10:30 AM CDT) Neutrophil abs 2.74 1.50 - 6.50 K/cumm Imm gran abs 0.02 0.00 - 0.10 K/cumm [facility] Lymphocyte abs 2.38 0.80 - 3.30 K/cumm [facility] Monocyte abs 0.49 0.20 - 0.80 K/cumm [facility] Eosinophil abs 0.11 0.00 - 0.50 K/cumm [facility] Basophil abs 0.04 0.00 - 0.10 K/cumm [facility] Neutrophil pct 47.4 % [facility] Comment: Interpretive Data Percent cell count reference ranges are not reported, since discordance with absolute values may lead to misinterpretation of CBC data. Current Interpretive Data was last revised on 2017. Imm gran pct 0.3 % [facility] Comment: Interpretive Data Percent cell count reference ranges are not reported, since discordance with absolute values may lead to misinterpretation of CBC data. Current Interpretive Data was last revised on 2017. Lymphocyte pct 41.2 % [facility] Comment: Interpretive Data Percent cell count reference ranges are not reported, since discordance with absolute values may lead to misinterpretation of CBC data. Current Interpretive Data was last revised on 2017. Monocyte pct 8.5 % [facility] Comment: Interpretive Data Percent cell count reference ranges are not reported, since discordance with absolute values may lead to misinterpretation of CBC data. Current Interpretive Data was last revised on 2017. Eosinophil pct 1.9 % [facility] Comment: Interpretive Data Percent cell count reference ranges are not reported, since discordance with absolute values may lead to misinterpretation of CBC data. Current Interpretive Data was last revised on 2017. Basophil pct 0.7 % [facility] Comment: Interpretive Data Percent cell count reference ranges are not reported, since discordance with absolute values may lead to misinterpretation of CBC data. Current Interpretive Data was last revised on 2017. Blood 10/17/2024 10:3 0 AM CDT 10/17/2024 4:07 PM CDT Malina Renteria NP LAB BLOOD ORDERABLES Final Result Performing Organization Address City/[facility]/ZIP Co de Phone Number [facility] Department of [employer] [place] [address] * CBC with auto differential (10/17/2024 10:30 AM CDT) WBC 5.78 3.80 - 9.90 K/cumm Hgb 15.3 13.0 - 17.5 g/dL [facility] Hct 45.5 38.9 - 50.3 % [facility] Plt 266 150 - 400 K/cumm [facility] MPV 10.8 9.1 - 12.[address] [facility] RBC 4.84 4.30 - 5.80 M/cumm [facility] MCV 94.0 81.3 - 96.[address] [facility] MCH 31.6 27.1 - 33.[address] [facility] MCHC 33.6 32.3 - 35.7 g/dL [facility] RDW CV 13.4 11.1 - 14.9 % [facility] RDW SD 45.8 35.7 - 48.[address] [facility] NRBC abs 0.00 0.00 - 0.01 K/cumm [facility] Blood 10/17/2024 10:3 0 AM CDT 10/17/2024 4:07 PM CDT Malina Renteria NP LAB BLOOD ORDERABLES Final Result Performing Organization Address City/[facility]/ZIP Co de Phone Number [facility] Department [place] [address] * (ABNORMAL) Comprehensive metabolic panel (10/17/2024 10:30 AM CDT) Sodium 143 135 - 145 mmol/L Potassium, pl 4.2 3.3 - 4.9 mmol/L [facility] Chloride 105 97 - 110 mmol/L [facility] CO2 30 22 - 32 mmol/L [facility] Anion gap 8 2 - 15 mmol/L [facility] BUN 16 6 - 25 mg/dL [facility] Creatinine 0.82 0.80 - 1.30 mg/dL [facility] Glucose 135 70 - 199 mg/dL [facility] Comment: Interpretive Data Fasting glucose >/= [...] 2022. Calcium 9.3 8.5 - 10.3 mg/dL [facility] Bilirubin, total 0.5 0.1 - 1.2 mg/dL [facility] Protein, pl 7.5 6.5 - 8.5 g/dL [facility] Albumin 3.9 3.5 - 5.0 g/dL [facility] Alk phos 78 40 - 130 Units/L [facility] ALT 60(H) 7 - 55 Units/L [facility] AST 68(H) 10 - 50 Units/L [facility] Blood 10/17/2024 10:3 0 AM CDT 10/17/2024 4:07 PM CDT us Malina Renteria EXECUTIVE ADVISOR LAB BLOOD ORDERABLES Final Result [facility] Department [place] [address] * CT Abdomen Pelvis WO Contrast (10/17/2016 [...] Recently Relevant to Health Maintenance Insurance MEDICARE [facility] [employer] [place] [facility] MEDICARE [facility] MEDICARE [facility] Advance Directives For more information, please contact: [phone] Documents on File Type Date Recorded Patient Computer Support Analyst Expl anation ADVANCE DIRECTIVE 12/28/2011 12:00 AM [facility] FINANCIAL/MEDICAL Care Teams Whitewasher Relationship Specialty Start Date End Date Bhargavi Tena MD [address] [place] [address] PCP - General Family Medicine 11/30/20 Lora Bajwa MD [address] [place] [address] Referring Physician Family Practice 11/20/18
--- OUTSIDE RECORDS SUMMARY | 2025-01-02 08:00 | XMS_ITS | Encounter Summary ---
Author Organization [facility] Address [address] [facility] [place] [address] Care Team Providers Care Pile Driving Nozzleman Name Role Phone Unavailable Primary Care Provider Unavailabl e Encounter Details Date Type Department Care Team (Late st Contact Info) Description 10/13/2024 Lab Requisition [facility] Physician 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 Bx Proven BCC B. Non Healing [place] Papule R/O BCC 5:12 PM CDT DERMATOPATHOLOGY LABORATORY Gross Description Specimen A: Received is one formalin filled container labeled with the patient's name and designated right neck.The specimen consists of an ellipse measuring [id number] mm and is oriented with the suture/notch [...] the Dermatopathology Laboratory at [facility], directed by Dr. Sandi Hubbard. These tests need not be, and therefore are not, approved by the [place] Food and Drug Administration. The tests are used for clinical purposes. Billing Codes Specimen Charges Stain Charges 46915 86554 1 1 5 5:12 PM CDT DERMATOPATHOLOGY LABORATORY Embedded Images 5 5:12 PM CDT DERMATOPATHOLOGY LABORATORY Pathology/Cytology TISSUE SPECIMEN FROM SKIN / Unknown 10/13/2024 8:59 AM CDT 10/14/2024 7:25 AM CDT Miscellaneous samples (specimen) TISSUE SPECIMEN FROM SKIN / Unknown 10/13/2024 8:59 AM CDT 10/14/2024 7:25 AM CDT us Johanna Wagner MD LAB - PATHOLOGY/CYTOLOGY ORD ERABLES Final Result DERMATOPATHOLOGY LABORATORY [facility] - Department of Dermatology [facility] Medicine [address] [place] [address], 3rd [place] [address], [facility] [phone] documented in this encounter Visit Diagnoses Not on filedocumented in this encounter
--- OUTSIDE RECORDS SUMMARY | 2025-01-02 08:00 | XMS_ITS | Continuity of Care Document ---
Author Organization [facility] Address [address] [place] [address] Phone Care Team Providers Care Lang Path Therapist Name Role Phone Michael Johnson DO Unavailable Unavailable Advance Directives Directive Yes / No Effective Date File Name No Information Encounters Encounter Description Practice Location Reason(s) For Visit Diagnoses Date Provider Providers Copied on Encounter [facility], [address], [place], [place], [address], [place] tel:[phone] [facility] No Information Alex Stein. [address] [facility], [place], [address], [place]. tel: [phone] Family History Family Member Type Diagnosis Age At Onset No Information Payers Payer name Insurance type Covered libertarian ID Authoriza tion(s) No Information Social History [...]
--- OUTSIDE RECORDS SUMMARY | 2025-01-02 08:00 | XMS_ITS | Encounter Summary ---
Author Organization [facility] Address [address] [facility] [place] [address] Care Team Providers Care Beater Tender Name Role Phone Unavailable Primary Care Provider Unavailabl e Encounter Details Date Type Department Care Team (Late st Contact Info) Description 09/03/2024 Lab Requisition 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 - Received: 09/05/2024 08:55 AM [...] characteristic determined by the Dermatopathology Laboratory at [facility], directed by Dr. Sandi Hubbard. These tests need not be, and therefore are not, approved by the [place] Food and Drug Administration. The tests are used for clinical purposes. Billing Codes Specimen Charges Stain Charges 43154 26113 1 1 1:18 PM CDT DERMATOPATHOLOGY LABORATORY [...] DERMATOPATHOLOGY LABORATORY [facility] - Department of Dermatology [facility] Specialized Medicine [address] [place] [address], [address] [phone] documented in this encounter Visit Diagnoses Not on filedocumented in this encounter
--- OUTSIDE RECORDS SUMMARY | 2025-01-02 08:00 | XMS_ITS | Encounter Summary ---
Author Organization [facility] Address [address] [place] [address] Phone Care Team Providers Care Auto Winder Name Role Phone Lora Bajwa MD Unavailable [phone] Bhargavi Tena MD Primary Care Provider Encounter Details Date Type Department Care Team (Late st Contact Info) Description 05/26/2022 Orders Only [facility] Scanning, Provider Social History Tobacco Use Types Packs/Day Years Used Date Smoking Tobacco: Former Cigarettes Q uit: 12/19/1993 Smokeless Tobacco: Never Sex and Gender Information Value Date Recorded Sex Assigned at Not on file 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
--- OUTSIDE RECORDS SUMMARY | 2025-01-02 08:00 | XMS_ITS | Encounter Summary ---
Author Organization [facility] Address [address] [place] [address] Phone Care Team Providers Care Software Developer Manager Name Role Phone Mk Lewis MD Primary Care Provider [phone] Lora Bajwa MD Primary Care Provider Lora Bajwa MD Unavailable [phone] Amanda Villa DO Primary Care Provider [phone] Bhargavi Tena MD Primary Care Provider Encounter Details Date Type Department Care Team (Late st Contact Info) Description 11/25/2015 Orders Only [facility] Scanning, Provider Social History Tobacco Use Types Packs/Day Years Used Date Smoking Tobacco: Never Assessed Sex and Gender Information Value Date Recorded Sex Assigned at Not on file 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 Gender Identity Male 02/26/2020 6:57 AM CDT [...] filedocumented in this encounter Care Teams Software Developer Manager Relationship Specialty Start Date End Date Mk Lewis MD PCP - General 12/05/16 03/06/17 Lora Bajwa MD [address] [facility] [place] [address] PCP - General 03/07/17 12/02/19 Amanda Villa DO [address] [facility], [place] [address] PCP - General 12/03/19 11/29/20 Bhargavi Tena MD [address] [facility] [address] [place], [place] [id number] PCP - General Family Medicine 11/30/20 Lora Bajwa MD [address] [facility] [place] [address] Referring Physician Family Practice 11/20/18 documented as of this encounter
--- OUTSIDE RECORDS SUMMARY | 2025-01-02 08:00 | XMS_ITS | Encounter Summary ---
Author Organization [facility] Address [address] [facility] [place] [address] Care Team Providers Care Wrapping Clerk Name Role Phone Unavailable Primary Care Provider Unavailabl e Encounter Details Date Type Department Care Team (Late st Contact Info) Description 08/29/2023 Lab Requisition [facility] - DermPath Lab [address] [facility], [place] [address] Johanna Wagner MD [address] [facility] 3 [place] [address] Social History Tobacco Use Types Packs/Day Years Used Date Smoking Tobacco: Former Cigarettes Q uit: 06/22/1993 Alcohol Use Standard Drinks/Week Comments No 0 (1 standard drink = 0.6 oz pur e alcohol) Sex and Gender Information Value Date Recorded Sex Assigned at Not on file 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 Gender Identity Not on file Sexual Orientation Not on file documented as of this encounter Plan of Treatment Not on file documented as of this encounter Procedures Procedure Name Priority Date/Time Associated Diagnosis Comments DERMATOPATHOLOGY Routine 08/29/2023 8:34 AM CDT documented in this encounter Results * DERMATOPATHOLOGY (08/29/2023 8:34 AM CDT) Case Report Dermatopathology Report Case: [id number] Authorizing Provider: Johanna Wagner MD Collected: 08/29/2023 08:34 AM Ordering Location: [facility] - Received: 08/30/2023 10:49 AM [...] characteristic determined by the Dermatopathology Laboratory at [facility], directed by Dr. Sandi Hubbard. These tests need not be, and therefore are not, approved by the [place] Food and Drug Administration. The tests are used for clinical purposes. Billing Codes Specimen Charges Stain Charges 81620 72956 1 1 3:33 PM CDT DERMATOPATHOLOGY LABORATORY [...] Department of Dermatology [facility] Specialized Medicine [address] [place] [address], [address] [phone] documented in this encounter Visit Diagnoses Not on filedocumented in this encounter
--- OUTSIDE RECORDS SUMMARY | 2025-01-02 08:00 | XMS_ITS | Encounter Summary ---
Author Organization [facility] Address [address] [place] [address] Phone Care Team Providers Care Rn Hospital Name Role Phone Lora Bajwa MD Unavailable [phone] Bhargavi Tena MD Primary Care Provider Encounter Details Date Type Department Care Team (Late st Contact Info) Description 08/16/2021 Orders Only [facility] Scanning, Provider Social History Tobacco Use Types Packs/Day Years Used Date Smoking Tobacco: Former Cigarettes Q uit: 12/19/1993 Smokeless Tobacco: Never Sex and Gender Information Value Date Recorded Sex Assigned at Not on file 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
--- OUTSIDE RECORDS SUMMARY | 2025-01-02 08:00 | XMS_ITS | Encounter Summary ---
Author Organization [facility] Address [address] [facility] [place] [address] Care Team Providers Care Machine Set Up Technician Name Role Phone Unavailable Primary Care Provider Unavailabl e Encounter Details Date Type Department Care Team (Late st Contact Info) Description 08/04/2019 Lab Requisition [facility] DermPath Lab [address] [facility], [place] [address] Gwen Gutiérrez MD [address] [facility] 3 [place] [address] Social History Tobacco Use Types Packs/Day Years Used Date Smoking Tobacco: Former Cigarettes Q uit: 06/22/1993 Alcohol Use Standard Drinks/Week Comments No 0 (1 standard drink = 0.6 oz pur e alcohol) Sex and Gender Information Value Date Recorded Sex Assigned at Not on file 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 Male 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 Gender Identity Not on file Sexual Orientation Not on file documented as of this encounter Plan of Treatment Not on file documented as of this encounter Procedures Procedure Name Priority Date/Time Associated Diagnosis Comments DERMATOPATHOLOGY Routine 08/01/2019 12:0 0 AM LAMP MECHANIC documented in this encounter Results * DERMATOPATHOLOGY (08/01/2019 12:00 AM LAMP MECHANIC) Case Report Dermatopathology Report Case: [id number] Authorizing Provider: Gwen Gutiérrez MD Collected: 08/01/2019 12:00 AM Ordering Location: [facility] DermPath Lab Received: 08/04/2019 07:48 AM Pathologist: Vincent Hubbard MD Specimen: Skin, right sup chest 0 1:20 PM [facility] DERMATOPATHOLOGY LABORATORY Final Diagnosis Specimen A. SKIN, right sup chest: SEBORRHEIC KERATOSIS, IRRITATED (L82.0) 0 1:20 PM [facility] DERMATOPATHOLOGY LABORATORY at [address] LAMP MECHANIC Clinical History MM vs SK. Irreg color. 0 1:20 PM [facility] DERMATOPATHOLOGY LABORATORY Gross Description Specimen A: Received is one formalin filled container labeled with the patient's name and designated right sup chest. The specimen consists of a shave measuring [id number]. Jar 0. 0 1:20 PM [facility] DERMATOPATHOLOGY LABORATORY Microscopic Description Specimen A. SKIN, right sup chest: There is acanthosis consisting of fairly uniform squamous cells with eosinophilic cytoplasm and squamous eddies. 0 1:20 PM [facility] DERMATOPATHOLOGY LABORATORY Disclaimer An external and [...] purposes. Billing Codes Specimen Charges Stain Charges 94366 1 0 1:20 PM [facility] DERMATOPATHOLOGY LABORATORY Embedded Images 0 1:20 PM [facility] DERMATOPATHOLOGY LABORATORY Pathology/Cytolog y TISSUE SPECIMEN FROM SKIN / Unknown 08/01/2019 08/04/2019 7:48 AM [facility] us Gwen Gutiérrez MD LAB - PATHOLOGY/CYTOLOGY OR DERABLES Final Result DERMATOPATHOLOGY LABORATORY [facility] - Department of Dermatology [address] [place] [address], 5th [place] [address], [facility] [phone] documented in this encounter Visit Diagnoses Not on filedocumented in this encounter
--- OUTSIDE RECORDS SUMMARY | 2025-01-02 08:00 | XMS_ITS | Clinical Summary ---
Author Organization [facility] Address [address] [place] [address] Care Team Providers Care Link Assembler Name Role Phone Unavailable Primary Care Provider Unavailabl e Source Comments [facility],non-owned Affiliates and Associated Physician Practices is amultiple site organization consisting of ambulatory clinics and hospital sitesin [place], [place], [place] and [place]. This disclosure is being madepursuant to the Care Everywhere program and may not contain all information available regarding this patient. Last updated 18.[facility] Allergies No known active allergies Medications * [...] [facility] [address] [place] [address] Johanna Wagner MD 10/13/2024 Lab Requisition [facility] [address] [place] [address] Johanna Wagner MD from Last 3 Months Social History Tobacco Use Types Packs/Day Years Used Date Smoking Tobacco: Former Cigarettes Q uit: 06/22/1993 Alcohol Use Standard Drinks/Week Comments No 0 (1 standard drink = 0.6 oz pur e alcohol) Sex and Gender Information Value Date Recorded Sex Assigned at Not on file 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 Gender Identity Not on file Sexual Orientation Not on file Last Filed Vital Signs Vital Sign Reading Time Taken Comments Blood Pressure 139/83 05/22/2013 12:57 PM ELEMENTARY SCIENCE TEACHER Pulse 75 05/22/2013 12:57 PM ELEMENTARY SCIENCE TEACHER Temperature 36.9 C (98.4 F) 05/22/2013 12:57 PM ELEMENTARY SCIENCE TEACHER Respiratory Rate 16 05/22/2013 12:57 PM ELEMENTARY SCIENCE TEACHER Oxygen Saturation 96% 05/22/2013 12:57 PM ELEMENTARY SCIENCE TEACHER Inhaled Oxygen Concentration - - Weight 116.1 kg (256 lb) 05/22/2013 8:02 AM ELEMENTARY SCIENCE TEACHER Height 182.9 cm (6') 05/22/2013 8:02 AM ELEMENTARY SCIENCE TEACHER Body Mass Index 34.72 05/22/2013 8:02 AM ELEMENTARY SCIENCE TEACHER Plan of Treatment Health Maintenance Due Date [...] season) 2024 DEPRESSION SCREENING 06/18/2024 INFLUENZA VACCINE (#1) 2025 Respiratory Syncytial Virus (RSV) Vaccine Pt: [...] CDT DERMATOPATHOLOGY Routine 10/13/2024 8:59 AM CDT from Last 3 Months Results * DERMATOPATHOLOGY (10/27/2024 8:24 AM CDT) Only the most recent of2 resultswithin the time period is included. Case Report Dermatopathology Report Case: [id number] Authorizing Provider: Johanna Wagner MD Collected: 10/27/2024 08:24 AM Ordering Location: [facility] - Received: 10/27/2024 01:08 [...] auricular.The specimen consists of an ellipse measuring [id number] mm and is oriented with the suture/notch [...] characteristic determined by the Dermatopathology Laboratory at [facility], directed by Dr. Sandi Hubbard. These tests need not be, and therefore are not, approved by the [place] Food and Drug Administration. The tests are used for clinical purposes. Billing Codes Specimen Charges Stain Charges 19695 1 12:44 PM CDT DERMATOPATHOLOGY LABORATORY Embedded Images 12:44 PM CDT DERMATOPATHOLOGY LABORATORY Pathology/Cytolo gy TISSUE SPECIMEN FROM SKIN / Unknown 10/27/2024 8:24 AM CDT 10/27/2024 1:08 PM CDT us Johanna Wagner MD LAB - PATHOLOGY/CYTOLOGY ORD ERABLES Final Result DERMATOPATHOLOGY LABORATORY [facility] - Department of Dermatology [facility] Medicine [address] [place] [address], [address] [phone] from Last 3 Months Insurance MEDICARE MEDICARE
--- OUTSIDE RECORDS SUMMARY | 2025-01-02 08:00 | XMS_ITS | Encounter Summary ---
Author Organization [facility] Address [address] [place] [address] Care Team Providers Care Survey Crew Chief Name Role Phone Unavailable Primary Care Provider Unavailabl e Encounter Details Date Type Department Care Team (Late st Contact Info) Description 02/14/2018 Lab Requisition [facility] [address] [place] [address] Gwen Gutiérrez MD [address] [facility] [address] [place] [address] Social History Tobacco Use Types Packs/Day Years Used Date Smoking Tobacco: Former Cigarettes Q uit: 06/22/1993 Alcohol Use Standard Drinks/Week Comments No 0 (1 standard drink = 0.6 oz pur e alcohol) Sex and Gender Information Value Date Recorded Sex Assigned at Not on file 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 The margins are inked green. Jar 0. [facility] Dermatopathology Laboratory performed the technical component [...] characteristic determined by the Dermatopathology Laboratory at [facility]. These tests need not be, and therefore are not, approved by the [place] Food and Drug Administration. The tests are used for clinical purposes. 1:19 PM [facility] D[facility]MAT[facility] at [address] CDT Pathology/Cytolog y TISSUE SPECIMEN FROM SKIN / Unknown 02/12/2018 02/14/2018 6:14 AM CDT Gwen Gutiérrez MD LAB - PATHOLOGY/CYTOLOGY OR DERABLES Final Result DERMATOPATHOLOGY LABORATORY [facility] - Department of Dermatology [address] [place] [address], [address] [place] [address], [facility] [phone] documented in this encounter Visit Diagnoses Not on filedocumented in this encounter
--- OUTSIDE RECORDS SUMMARY | 2025-01-02 08:00 | XMS_ITS | Continuity of Care Document ---
Author Name [facility] Organization [facility] Care Team Providers Care Contract Administration Coordinator Name Role Phone [facility] Unavailable Unavailable Problems Combined list of problems from Department of Defense and Veterans Affairs facilities. It does not include entries that were removed or entered in error. Problem Status Onset Date Problem Type Date of Resolution Comments Source Body mass index 30+ - obesity Active Condition [facility] Diabetes Mellitus Type 2 (RUST [id number]) Active Condition [facility] Hyperlipidemia Active Condition [facility] Hyperlipidemia (RUST [id number]) Active Condition [facility] Hypertension Active Condition [facility] Inflammatory arthritis Active Condition [facility] Sensorineural hearing loss, bilateral Active Condition [facility] Type 1 diabetes mellitus without complication Inactive Condition 01/09/2018 [facility] HEADACHE SYNDROMES Active Condition [facility] Administrative Evaluation Services Inactive Condition [facility] CATARACT SENILE COMBINED FORMS Active Condition [facility] DERMATOCHALASIS BOTH EYES Active Condition [facility] ANISOMETROPIA Active Condition [facility] PLANTAR FASCIITIS Active Condition [facility] DERMATOPHYTOSIS Active Condition [facility] Outpatient Physician Consultation Active Condition [facility] DERMATOLOGY [...] medical exam w/o abnormal findings Active Diagnosis [facility] Diagnosis: ICD-10-CM H90.A31 Mix cndct/snrl hear loss,uni,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 Active Diagnosis [facility] Medications Combined list of outpatient medications [...] DAY ORAL ACTIVE BEAR FERNANDEZ MA 2016 [facility] aspirin EC 81 mg tablet = [...] Stop Oral (given by mouth) Complet ed 12/28/2024 4 2024 90.0 Ambulat ory Pharmac y cefdinir 300 mg capsule = 1 cap(s), Oral, every 12 hr, # 20 EA, 0 total refill(s ), Hard Stop Oral (given by mouth) Complet ed 03/28/2024 4 2023 20.0 Ambulat ory Pharmac y CETIRIZINE HCL 10MG TAB TAKE ONE TABLET BY MOUTH ONCE A DAY ORAL ACTIVE NNAMDI [place] 2017 [facility] CIPROFLOXAC IN HCL (CIPROFLOXA TORI HCL), 500MG, TABLET, ORAL, AUROBINDO PHARM, 100 ea. BOTTLE Active [id number] 4 2023 14 Pharmac y Data Transac [...] Stop Oral (given by mouth) Complet ed 12/28/2024 4 2024 90.0 Ambulat ory Pharmac y cloNIDine 0.1 mg tablet See Instruct ions, # 90 EA, 0 total refill(s ), Hard Stop Discont inued 12/31/2023 4 2023 90.0 Ambulat ory Pharmac y CLONIDINE HCL 0.1MG TAB TAKE ONE TABLET BY MOUTH AT BEDTIME ORAL ACTIVE HUMA LIRIANO 2023 [facility] ECONAZOLE NITRATE 1% CREAM,TOP APPLY THIN FILM TO AFFECTED AREA(S) ONCE A DAY TOPICA L ACTIVE HUMA LIRIANO 2023 [facility] ESOMEPRAZOL E 20MG (BASE) CAP,EC TAKE 1 CAPSULE BY MOUTH EVERY MORNING BEFORE A MEAL ORAL ACTIVE NNAMDI [place] 2017 [facility] famotidine 10 mg tablet = 1 [...] EVERY MORNING ORAL ACTIVE HUMA LIRIANO 2023 [facility] folic acid 1 mg tablet See [...] DAY ORAL ACTIVE BEAR FERNANDEZ MA 2016 [facility] GOLIMUMAB 100MG/ML INJ SMARTJECT INJECT 100MG/1M L UNDER THE SKIN ONE-TIME SUBCUT ANEOUS ACTIVE HUMA LIRIANO 2023 [facility] HYDROCHLORO THIAZIDE 12.5MG/IRBE SARTAN 300MG TAB TAKE ONE TABLET BY MOUTH ONCE A DAY ORAL ACTIVE HUMA LIRIANO 2023 [facility] hydrochloro thiazide-ir besartan 12.5 mg-300 mg [...] A DAY ORAL ACTIVE NNAMDI [place] 2017 [facility] ipratropium 21 mcg/inh nasal spray [30mL] [...] THIAZIDE (IRBESARTAN /HYDROCHLOR OTHIAZIDE), 300-12.5MG, TABLET, ORAL, [employer] PHARMA, 30 ea. BOTTLE Active [id number] 4 2023 90 Pharmac y Data Transac tion Service Facilit y methotrexat e 2.5 mg tablet See [...] EVERY WEEK ORAL ACTIVE HUMA LIRIANO 2023 [facility] METRONIDAZO LE (metronidaz ole), 375 MG, CAPSULE, ORAL, ALEMBIC PHARMAC, 50 ea. BOTTLE Active [id number] 4 2023 14 Pharmac y Data Transac [...] EVERY EVENING ORAL ACTIVE HUMA LIRIANO 2023 [facility] sildenafil 100 mg tablet = 1 [...] Reported Comments Source NO OUTPUT FOR NCID [id number] Drug allergy (disorder) active 01/31/2008 [facility] OL[facility] ([facility] Immunizations Combined list of available immunizations from the Department of Defense and Veterans Affairs facilities. Immunization Series Date Given Administered By Site Reaction Lot Number CVX Code Drug Senior Safety Support Manager Status Comments Source PNEUMOCOCCAL CONJUGATE PCV20, POLYSACCHARID E [id number] CONJUGATE, ADJUVANT, PF 2023 BOYD LITTLE LEFT DELTO ID [id number] 216 complet ed [facility] AT [facility] TDAP 2023 BOYD LITTLE NE RIGHT DELTO ID [id number] 115 complet ed [facility] COVID-19 (MODERNA), MRNA, LNP-S, PF, 50 MCG/0.5 ML (AGES 12+ YEARS) 2022 312 complet ed HISTORICA L INFORMATI ON - FROM PATIENT'S WRITTEN RECORD, [facility] INFLUENZA, UNSPECIFIED FORMULATION 2022 88 complet ed HISTORICA L INFORMATI ON - FROM PATIENT'S WRITTEN RECORD, [facility] RSV, RECOMBINANT, PROTEIN SUBUNIT RSVPREF, ADJUVANT RECONSTITUTED , 0.5 ML, PF 2022 303 complet ed HISTORICA L INFORMATI ON - FROM PATIENT'S WRITTEN RECORD, [facility] INFLUENZA, UNSPECIFIED FORMULATION 2022 88 complet ed Booster for Series, HISTORICA L INFORMATI ON - FROM PATIENT'S RECALL, [facility] ZOSTER RECOMBINANT 2 2022 187 complet ed HISTORICA L INFORMATI ON - FROM PATIENT'S WRITTEN RECORD, [facility] N ZOSTER RECOMBINANT 1 2021 187 complet ed HISTORICA L INFORMATI ON - FROM PATIENT'S WRITTEN RECORD, [facility] COVID-19 (MODERNA), MRNA, LNP-S, BIVALENT, PF, 50 MCG/0.5 ML OR 25MCG/0.25 ML DOSE 1 2021 229 complet ed HISTORICA L INFORMATI ON - FROM PATIENT'S WRITTEN RECORD, [facility] COVID-19 (MODERNA), MRNA, LNP-S, PF, 100 MCG/0.5ML DOSE OR 50 MCG/0.25ML DOSE 2021 207 complet ed HISTORICA L INFORMATI ON - FROM PATIENT'S WRITTEN RECORD, [facility] COVID-19, mRNA, LNP-S, PF, 100 mcg or 50 mcg dose 2021 RUDD, Moderna US[employer] (MOD) Not Given COVID-19, mRNA, LNP-S, PF, 100 mcg or 50 mcg dose [facility] influenza, high-dose, quadrivalent 2020 SHUN, () Not Given influenza , high-dose , quadrival ent [facility] COVID-19 (MODERNA), MRNA, LNP-S, PF, 100 MCG/0.5ML DOSE OR 50 MCG/0.25ML DOSE 3 2020 207 complet ed HISTORICA L INFORMATI ON - FROM PATIENT'S WRITTEN RECORD, [facility] COVID-19, mRNA, LNP-S, PF, 100 mcg or 50 mcg dose 2020 RUDD, Modern[employer] (MOD) Not Given COVID-19, mRNA, LNP-S, PF, 100 mcg or 50 mcg dose DoD COVID-19 (MODERNA), MRNA, LNP-S, PF, 100 MCG/0.5ML DOSE OR 50 MCG/0.25ML DOSE 2 2020 207 complet ed HISTORICA L INFORMATI ON - FROM PATIENT'S WRITTEN RECORD, [facility] COVID-19 (MODERNA), MRNA, LNP-S, PF, 100 MCG/0.5ML DOSE OR 50 MCG/0.25ML DOSE 1 2020 207 complet ed HISTORICA L INFORMATI ON - FROM PATIENT'S WRITTEN RECORD, [facility] pneumococcal polysaccharid e, 23 valent 2019 zzLef t Arm [id number] Merck & Company Inc complet ed pneumococ trevor polysacch aride, 23 valent 05/18/20 Given Ambulat ory Pharmac y PNEUMOCOCCAL POLYSACCHARID E PPV23 2019 33 complet ed HISTORICA L INFORMATI ON - FROM PATIENT'S WRITTEN RECORD, [facility] pneumococcal polysaccharid e vaccine, 23 valent 1 2019 Unknown, Provider [id number] Merck (MSD) complet ed pneumococ trevor [...] FREE 2018 150 complet ed 02, Partner: [facility]. Administe red by: RIMA WONG ([phone]). Partner 7 Lot#: [id number] Mfr: GlaxoSmit hKline; Dosage: 0.5 [facility] Influenza, seasonal, injectable 1 2018 Unknown, Provider 141 Transcribed (TRS) complet ed Influenza , seasonal, injectabl e DoD influenza, injectable, quadrivalent- pf 2017 zzLef t Arm [id number] Seqirus complet ed influenza , injectabl e, quadrival ent-pf 04/11/18 Given Ambulat ory Pharmac y Influenza, injectable, quadrivalent, preservative free 1 2017 Unknown, Provider [id number] 150 Seqirus (SEQ) complet ed Influenza , injectabl e, quadrival ent, preservat ezio free DoD Influenza, inj, MDCK, quadrivalent- pf 2016 zzLef t Arm [id number] 171 Se[employer]irus complet ed Influenza , inj, MDCK, quadrival ent-pf 05/08/17 Given Ambulat ory Pharmac y Influenza, injectable, Madin [place] Canine Kidney, preservative free, quadrivalent 1 2016 Unknown, Provider [id number] 171 Seqirus (SEQ) complet ed Influenza , injectabl e, Madin Judi Canine Kidney, preservat ezio free, quadrival ent DoD ZOSTER LIVE 2016 121 complet ed [facility] influenza, seasonal, injectable-pf 2015 zzLef t Arm [id number] 140 Seqirus complet ed influenza , seasonal, injectabl e-pf 03/13/16 Given Ambulat ory Pharmac y Influenza, seasonal, injectable, preservative free 1 2015 Unknown, Provider [id number] 140 Seqirus (SEQ) complet ed Influenza , seasonal, injectabl e, preservat ezio free DoD NOVEL INFLUENZA-H1N 1-09 1 2014 127 complet ed HISTORICA L INFORMATI ON - FROM OTHER REGISTRY, [facility] PNEUMOCOCCAL POLYSACCHARID E PPV23 1 2014 33 complet ed HISTORICA L INFORMATI ON - FROM OTHER REGISTRY, [facility] pneumococcal polysaccharid e, 23 valent 2014 zzLef t Arm [id number] 33 Merck & Company Inc complet ed pneumococ trevor polysacch aride, 23 valent 03/15/15 Given Ambulat ory Pharmac y influenza, seasonal, injectable-pf 2014 zzLef t Arm [id number] 140 CSL Behring complet ed influenza , seasonal, injectabl e-pf 03/15/15 Given Ambulat ory Pharmac y PNEUMOCOCCAL POLYSACCHARID E PPV23 2014 33 complet ed [facility] pneumococcal polysaccharid e vaccine, 23 valent 1 2014 Unknown, Provider [id number] Merck (MSD) complet ed pneumococ trevor polysacch aride vaccine, 23 valent DoD Influenza, seasonal, injectable, preservative free 1 2014 Unknown, Provider [id number] 140 CSL [employer] (CSL) complet ed Influenza , seasonal, [...] INFORMATI ON - FROM PATIENT'S WRITTEN RECORD, [facility] tetanus toxoid, reduced diphtheria toxoid, and acellular pertu is vaccine, adsorbed 1 2013 Unknown, Provider 115 Transcribed (TRS) complet ed tetanus toxoid, reduced diphtheri a toxoid, and acellular pertussis vaccine, adsorbed DoD zoster vaccine live 2011 zzLef t Arm [id number] 121 Merck & Company Inc complet ed zoster vaccine live 05/24/12 Given Ambulat ory Pharmac y zoster vaccine, live 1 2011 Unknown, Provider [id number] Merck (MSD) complet ed zoster vaccine, live DoD influenza, seasonal, injectable 2010 zzRig ht Arm [id number] 141 sanofi pasteur complet ed influenza , seasonal, injectabl e 03/17/11 Given Ambulat ory Pharmac y tetanus, diphtheria, acellular pertu is 2010 andrewsJacquie waldo Segura [id number] 115 GlaxThere CorporationK[employer] va complet ed tetanus, diphtheri a, acellular pertussis 03/17/11 Given Ambulat ory Pharmac y tetanus toxoid, reduced diphtheria toxoid, and acellular pertu is vaccine, adsorbed 1 2010 Unknown, Provider [id number] 115 [facility] (SKB) complet ed tetanus toxoid, reduced diphtheri a toxoid, and acellular pertussis vaccine, adsorbed DoD Influenza, seasonal, injectable 3 2010 Unknown, Provider [id number] 141 Sanofi Pasteur (PMC) complet ed Influenza , seasonal, injectabl e DoD influenza virus vaccine, whole virus 1998 [id number] 16 [facility] complet ed influenza virus vaccine, whole virus 04/09/99 Given Ambulat ory Pharmac y influenza virus vaccine, whole virus 1 1998 Unknown, Provider [id number] 16 [employer] (CON) complet ed influenza virus vaccine, whole virus DoD influenza virus vaccine, whole virus [id number] 16 [employer] [facility] complet ed influenza virus vaccine, whole virus 08/03/98 Given Ambulat ory Pharmac y influenza virus vaccine, whole virus 1 1998 Unknown, Provider [id number] 16 [employer] (CON) complet ed influenza virus vaccine, whole [...] Source SYSTOLIC BLOOD PRESSURE 138 02/20/2024 08:14:26 [facility] DIASTOLIC BLOOD PRESSURE 78 02/20/2024 08:14:26 [facility] PULSE OXIMETRY 96 02/20/2024 08:14:26 [facility] WEIGHT 263.8 02/20/2024 08:14:26 [facility] BMI 36 kg/m2 02/20/2024 08:14:26 [facility] PAIN 3 02/20/2024 08:14:26 [facility] HEIGHT 72 02/20/2024 08:14:26 [facility] TEMPERATURE 97.8 02/20/2024 08:14:26 [facility] PULSE 76 02/20/2024 08:14:26 [facility] RESPIRATION 20 02/20/2024 08:14:26 [facility] Encounters Combined list of: 1) Encounters from Department of Veterans Affairs facilities going backup to the last 18 months, not all VA inpatient encounters are included; 2) Encounters from the Department of [facility] facilities going backup to 280 months. Location Location Details Encounter Type Encounter Number Reason For Visit Attending Provider ADM Date DC Date Status Disposition Source [address] [place] [address] Travis OLIVEROS [facility] Non-GME FHI2) OUTPATIENT [id number] scaly spot on ear TEE BYRNE 12/12 Released w/o Limitations [address] [place] [address] Travis TODDB [facility])(F amily Practic e Non-GME FHI2) [address] [place] [address] Travis B [facility])([facility] Non-GME FHI2) OUTPATIENT [id number] persist ant cough TEE BYRNE 09/15 Released w/o Limitations [address] [place] [address] Travis TODDB [facility]F amily Practic e Non-GME FHI2) [address] [place] [address] Travis B [facility])([facility] Non-GME FHI2) OUTPATIENT [id number] routine physica l check up TEE BYRNE 10/05 Released w/o Limitations [address] [place] [address] Travis TODDB [facility])(F amily Practic e Non-GME FHI2) [address] [place] [address] Travis TODDB [facility] Non-GME FHI2) OUTPATIENT [id number] Lt Eye - C/O a growth or spot? ANISA PACE 04/13 Released w/o Limitations [address] [place] [address] Travis TODDB [facility]F amily Practic e Non-GME FHI2) [address] [place] [address] Travis TODDB [facility])([facility] lisbeth Practice Non-GME FHI2) OUTPATIENT [id number] stomach pain both sides WALLACE BEGUM 06/05 Released w/o Limitations [address] [place] [address] Travis [facility])(F amily Practic e Non-GME FHI2) [address] [place] [address] Travis [facility])([facility] lisbeth Practice Non-GME FHI2) OUTPATIENT [id number] wants derm referal for skin lesions ' GALO ANSARI 01/15 Released w/o Limitations [address] [place] [address] Travis [facility])(F amily Practic e Non-GME FHI2) [address] [place] [address] Travis B [facility] lisbeth Practice Non-GME FHI2) OUTPATIENT [id number] adult physica l [phone]# GALO ANSARI 02/08 Released w/o Limitations [address] [place] [address] Travis [facility])(F amily Practic e Non-GME FHI2) [address] [place] [address] Travis [facility])([facility] lisbeth Practice Non-GME FHI2) OUTPATIENT [id number] fever, chills [phone] GALO ANSARI 08/06 Released w/o Limitations [address] [place] [address] Travis [facility])(F amily Practic e Non-GME FHI2) [address] [place] [address] Travis [facility])([employer] [employer] [facility]) OUTPATIENT [id number] impaire d fasting glucose TONA KENDRICK 08/12 Released w/o Limitations [address] [place] [address] Travis [facility])(N utritio nal Medicin e) [address] [place] [address] Travis [facility])([facility] lisbeth Practice Non-GME FHI2) OUTPATIENT [id number] lesions on face spreadi ng GALO ANSARI 10/22 Released w/o Limitations [address] [place] [address] Travis [facility])(F amily Practic e Non-GME FHI2) [address] [place] [address] Travis [facility])([facility] lisbeth Practice Non-GME FHI2) TELE CONSULT [id number] Lab results -- MARY ELLEN Winston 01/[address] [place] [address] Travis [facility])(F amily Practic e Non-GME FHI2) [employer] ([facility]Fam lisbeth Practice Non-GME FHI2) OUTPATIENT [id number] Eval back pain [phone] GALO Hicks 07/21 Released w/o Limitations [employer] ([facility])(F amily Practic e Non-GME FHI2) [employer] ([facility])(Phy sical Therapy) OUTPATIENT [id number] right arm pain LEROY MARIA E Rei 08/04 Released w/o Limitations [employer] ([facility])(P hysical Therapy ) [facility] [employer] ([facility])(Sco tt [facility] Team 4) TELE CONSULT [id number] f/u labs and GALO Salazar 08/06 [employer] ([facility])(S cott [facility] Team 4) [facility] [employer] ([facility])(Phy sical Therapy) OUTPATIENT [id number] MC MOLINA 08/11 Released w/o Limitations [employer] ([facility])(P hysical Therapy ) [facility] [employer] ([facility])(Phy sical Therapy) OUTPATIENT [id number] JUAN MCNEIL 08/13 Released w/o Limitations [employer] ([facility])(P hysical Therapy ) [facility] [employer] ([facility])(Phy sical Therapy) OUTPATIENT [id number] MC MOLINA 08/18 Released w/o Limitations [employer] ([facility])(P hysical Therapy ) [facility] [employer] ([facility])(Phy sical Therapy) OUTPATIENT [id number] MC MOLINA 08/20 Released w/o Limitations [employer] ([facility])(P hysical Therapy ) [facility] [employer] ([facility])(Phy sical Therapy) OUTPATIENT [id number] JUAN MCNEIL 08/24 Released w/o Limitations [employer] ([facility])(P hysical Therapy ) [employer] ([facility])(Phy sical Therapy) OUTPATIENT [id number] MC MOLINA 08/26 Released w/o Limitations [employer] ([facility])(P hysical Therapy ) [employer] ([facility])(Phy sical Therapy) OUTPATIENT [id number] MARIA E HARPER 09/01 Released w/o Limitations [employer] ([facility])(P hysical Therapy ) [employer] ([facility])(Phy sical Therapy) OUTPATIENT [id number] MC MOLINA 09/03 Released w/o Limitations [employer] ([facility])(P hysical Therapy ) [employer] ([facility])(Phy sical Therapy) OUTPATIENT [id number] ARELY CESAR 09/16 Released w/o Limitations [employer] ([facility])(P hysical Therapy ) [employer] ([facility])(Phy sical Therapy) OUTPATIENT [id number] MC MOLINA 09/21 Released w/o Limitations [employer] ([facility])(P hysical Therapy ) [employer] ([facility])(Phy sical Therapy) OUTPATIENT [id number] JUAN MCNEIL 09/23 Released w/o Limitations [employer] ([facility])(P hysical Therapy ) [facility] [employer] ([facility])(Phy sical Therapy) OUTPATIENT [id number] MC MOLINA 09/28 Released w/o Limitations [employer] ([facility])(P hysical Therapy ) [employer] ([facility])(Phy sical Therapy) OUTPATIENT [id number] MARIA E HARPER 09/30 Released w/o Limitations [employer] ([facility])(P hysical Therapy ) [facility] [employer] ([facility])(Sco tt [facility] Team 4) OUTPATIENT [id number] eval lump L testicl e/discu ss reffera l [id number] GALO Ram 12/02 Released w/o Limitations [employer] ([facility])(S cott [facility] Team 4) [employer] ([facility])(Fam lisbeth Med Tm B Non-AD BCC) TELE CONSULT [id number] Exchang e call BP questio lacey MC BEGUM Dulce 12/[address] [place] [address] Travis TODDB ([facility])(F amily Med Tm B Non-AD BCC) [address] [place] [address] Travis TODDB ([facility])([facility] Team 4) OUTPATIENT [id number] follow up for blood pressur e [id number] GALO ANSARI 12/29 Released w/o Limitations [address] [place] [address] Travis TODDB ([facility])([facility] Team 4) [address] [place] [address] Travis TODDB ([facility])([facility] Team 4) OUTPATIENT [id number] F/U BP and cholest deborah [phone] KRISTY PURDY 03/09 Released w/o Limitations [address] [place] [address] Travis TODDB ([facility])([facility] Team 4) [address] [place] [address] Travis TODDB [facility]Fam lisbeth Med Tm B Non-AD BCC) TELE CONSULT [id number] Lab results -- MARY ELLEN Mays 03/[address] [place] [address] Travis TODDB [facility])(F amily Med Tm B Non-AD BCC) [address] [place] [address] Travis TODDB [facility])([facility] Team 4) TELE CONSULT [id number] feels light headed taking new meds. AZEB GRACIA 03/[address] [place] [address] Travis TODDB [facility] Team 4) [address] [place] [address] Travis TODDB [facility])([facility] Team 4) OUTPATIENT [id number] lab f/u-med refill KRISTY PURDY 04/23 Released w/o Limitations [address] [place] [address] [employer] ([facility])([facility] Team 4) [address] [place] [address] [employer] [facility])([facility] Team 4) TELE CONSULT [id number] Per AZEB Watson 05/[address] [place] [address] [employer] ([facility])([facility] Team 4) [address] [place] [address] [employer] [facility])([facility] Team 4) TELE CONSULT [id number] Rad Results KRISTY PURDY Dulce 05/[address] [place] [address] Group Travis PEREZB [facility] 4) [address] [place] [address] Travis P[facility]B [facility] Team 4) OUTPATIENT [id number] f/u for medicat ion [phone] KRISTY PURDY 07/12 Released w/o Limitations [address] [place] [address] Travis P[facility]B [facility] 4) [address] [place] [address] Travis PEREZB [facility] Team 4) TELE CONSULT [id number] Med Refill - AZEB Woo 08/[address] [place] [address] Travis PEREZB [facility] 4) [address] [place] [address] Travis B [facility])(War rior Op Med Cln Tm A Ad) OUTPATIENT [id number] f/u Hyperte nsion [phone] KSENIAKRISTY Dulce 10/08 Released w/o Limitations [address] [place] [address] Travis [facility]ZB [facility])([facility] Tm A Ad) [address] [place] [address] Travis [facility]B [facility])([facility] Med Cln Tm A Ad) TELE CONSULT [id number] Disease Mgt note. MJ RENDON 10/[address] [place] [address] Travis [facility]B [facility])([facility] ar[facility] Op Med Cln Tm A Ad) [address] [place] [address] Travis P[facility]ZB [facility])(Opt ometry) OUTPATIENT [id number] diabete s NIKO TAYLOR 10/25 Released w/o Limitations [address] [place] [address] Travis PEREZB [facility])(O ptometr y) [address] [place] [address] Travis B [facility])([facility] Team 3) OUTPATIENT [id number] Rash [phone] KELLI HERNADEZ 12/15 Released w/o Limitations [address] [place] [address] Travis PEREZB [facility] 3) [address] [place] [address] Travis [facility])(War ri[facility] Op Med Cln Tm A Ad) TELE CONSULT [id number] Patient to have urology referra l based on labs from December 2009 AZEB GRACIA 01/10 Referred for Appointment [address] [place] [address] Travis [facility]B [facility])([facility] Op Med Cln Tm A Ad) [address] [place] [address] Travis [facility])(War rior Op Med Cln Tm A Ad) OUTPATIENT [id number] F/U on lab work [phone] KRISTY PURDY 01/21 Released w/o Limitations [address] [place] [address] Travis [facility]W ar[facility] Op Med Cln Tm A Ad) [address] [place] [address] Travis [facility])(War rior Op Med Cln Tm A Ad) TELE CONSULT [id number] Patient lab reviewe d: AZEB GRACIA 01/[address] [place] [address] Travis [facility])(W ar[facility] Op Med Cln Tm A Ad) [address] [place] [address] Travis [facility])(War rior Op Med Cln Tm A Ad) TELE CONSULT [id number] Pt wants a new referra l for Derm. His contact is [phone]. MJ RENDON 02/14 Referred for Appointment [address] [place] [address] Group Travis [facility])(W ar[facility] Op Med Cln Tm A Ad) [address] [place] [address])(War rior Op Med Cln Tm A Ad) TELE CONSULT [id number] [facility]-did not mention what it reguawest s-[phone] EJR AZEB GRACIA 03/[address] [place] [address])(W arrior Op Med Cln Tm A Ad) [address] [place] [address])(War rior Op Med Cln Tm A Ad) TELE CONSULT [id number] F/U Disease Mgt/HX of T2DM/HL P/HTN-P CM PA MJ Almaguer 03/03 Referred for Appointment [address] [place] [address])(W ar[facility] Op Med Cln Tm A Ad) [address] [place] [address])(War rior Op Med Cln Tm A Ad) OUTPATIENT [id number] poss sinus infecti on KRISTY PURDY 04/08 Released w/o Limitations [address] [place] [address] Travis [facility])(W arrior Op Med Cln Tm A Ad) [address] [place] [address])(Sco tt Disease Managemen t) TELE CONSULT [id number] [facility] IS[facility] Purdy / daniel lymani ng lab results and if needs meds adjuste jeannine [phone] MJ RENDON 05/03 Referred for Appointment [address] [place] [address] Group Travis [facility])(S cott Disease Managem ent) [address] [place] [address])(War rior Op Med Cln Tm A Ad) TELE CONSULT [id number] lab f/u AZEB GRACIA 06/[address] [place] [address] Group Travis [facility])(W arrior Op Med Cln Tm A Ad) [address] [place] [address])(Sco tt Disease Managemen t) TELE CONSULT [id number] Due f/u apt in Jul 29 w fasting labs/PC M MJ Kenyon 07/11 Referred for Appointment [address] [place] [address] ([facility])(S cott Disease Managem ent) [address] [place] [address])(War rior Op Med Cln Tm A Ad) OUTPATIENT [id number] f/u blood pressur e [phone] KRISTY PURDY 08/04 Released w/o Limitations [address] [place] [address])(W arrior Op Med Cln Tm A Ad) [address] [place] [address])(War rior Op Med Cln Tm A Ad) OUTPATIENT [id number] f/u blood pressur e - [phone] KRISTY PURDY 08/29 Released w/o Limitations [address] [place] [address])(W arrior Op Med Cln Tm A Ad) [address] [place] [address])(Sco tt Disease Managemen t) TELE CONSULT [id number] needs f/u--PC M MJ Kenyon 09/[address] [place] [address] Group [facility])(S cott Disease Managem ent) [address] [place] [address])(War rior Op Med Cln Tm A Ad) OUTPATIENT [id number] fu diabete KRISTY Anthony 10/07 Released w/o Limitations [address] [place] [address])(W arrior Op Med Cln Tm A Ad) [address] [place] [address] Group Travis TODDRobby [facility]) TELE CONSULT [id number] Due annual Diabeti c Eye exam MJ RENDON 10/[address] [place] [address] Group Travis [facility])(S cott Disease Managem ent) [address] [place] [address] Travis [facility])(Opt ometry) OUTPATIENT [id number] Needs annual Diabeti c Eye Exam CARLOS ATWOOD Vincent 10/14 Released w/o Limitations [address] [place] [address] Group Travis [facility])(O ptometr y) [address] [place] [address] Travis [facility])([facility] Tm) TELE CONSULT [id number] ? Lab order - Ingram - - tsg ABDULAZIZ SONG 01/[address] [place] [address] Travis [facility])(S cott Interna l Medicin e Tm) [address] [place] [address] Travis [facility])([facility] ) OUTPATIENT [id number] medicat ions TEE INGRAM 01/30 Released w/o Limitations [address] [place] [address] Travis [facility])(S cott Interna l Medicin e Tm) [address] [place] [address] Travis [facility])([facility] ) TELE CONSULT [id number] Referra l needed/ Ingram/fxs ABDULAZIZ SONG 02/[address] [place] [address] Travis [facility])(S cott Interna l Medicin e Tm) [address] [place] [address] Travis [facility])([facility] ) OUTPATIENT [id number] pain above groin on left side/co mes and goes [id number] JOHANDARLYN CIV 03/13 Released w/o Limitations [address] [place] [address] Travis [facility])(S cott Interna l Medicin e Tm) [address] [place] [address] Travis [facility])([facility] ) TELE CONSULT [id number] pls send ltr MARY ELLEN GEIGER 03/15 Referred for Appointment [address] [place] [address] Group Travis PEREZRobby [facility])(S cott Interna l Medicin e Tm) [address] [place] [address] Travis [facility])([facility] ) TELE CONSULT [id number] wants the OK to resume Metform in Ingram cad tlt CHELY PACE 03/[address] [place] [address] Travis [facility])(S cott Interna l Medicin e Tm) [address] [place] [address])([facility] ) TELE CONSULT [id number] [facility] surgery Ingram cad tlt CHELY PACE 03/[address] [place] [address] Travis [facility])(S cott Interna l Medicin e Tm) [address] [place] [address])([facility] ) OUTPATIENT [id number] f/u Back Pain and MRI results TEE INGRAM 03/31 Released w/o Limitations [address] [place] [address])(S cott Interna l Medicin e Tm) [address] [place] [address])([facility] ) OUTPATIENT [id number] Pain in left leg [phone] TEE INGRAM 05/15 Released w/o Limitations [address] [place] [address])(S cott Interna l Medicin e Tm) [address] [place] [address])([facility] ) TELE CONSULT [id number] Notes Entered by: JOSIE CORONA 26 May [id number] ------- ------- ------- ------- -- Referra l Request /MRI request -Sarita/53 1-2824, /c CHELY Ortega 05/[address] [place] [address])(S cott Interna l Medicin e Tm) [address] [place] [address])([facility] ) TELE CONSULT [id number] Medicat ion renewal - Sarita - /a fter 1530 - [phone] - tsg TEE INGRAM 07/[address] [place] [address])(S cott Interna l Medicin e Tm) [address] [place] [address])([facility] ) TELE CONSULT [id number] missing info on referra CHELY Gupta 07/[address] [place] [address])(S cott Interna l Medicin e Tm) [address] [place] [address])([facility] ) TELE CONSULT [id number] Notes Entered by: LISANDRO SANTIAGO 01 Sep 2011801 ------- ------- ------- ------- -- Med renewal /Sarita/53 1.7624c /CHELY Sanchez 08/[address] [place] [address])(S cott Interna l Medicin e Tm) [address] [place] [address])([facility] ) OUTPATIENT [id number] 3 mo f/u addrss HCM and Chronic Med Issues (per Dr Ingram) TEE INGRAM 09/14 Released w/o Limitations [address] [place] [address])(S cott Interna l Medicin e Tm) [address] [place] [address])([facility] ) TELE CONSULT [id number] Notes Entered by: BUBBA CABA 03 Oct [id number] ------- ------- ------- ------- -- Med Refill ABDULAZIZ SONG 10/[address] [place] [address])(S cott Interna l Medicin e Tm) [address] [place] [address])([facility] ) TELE CONSULT [id number] Notes Entered by: BUBBA CABA 13 Oct 2011809 ------- ------- ------- ------- -- Referra l to CHELY Henson 10/[address] [place] [address])(S cott Interna l Medicin e Tm) [address] [place] [address])([facility] ) TELE CONSULT [id number] Notes Entered by: JOSIE CORONA 06 Nov 2011 0859 ------- ------- ------- ------- -- Med refill- Sarita/314 -[phone] /CHELY Gaming 11/[address] [place] [address])(S cott Interna l Medicin e Tm) [address] [place] [address])([facility] ) OUTPATIENT [id number] 3 mo f/u DM/TEE Mayberry 11/19 Released w/o Limitations [address] [place] [address])(S cott Interna l Medicin e Tm) [address] [place] [address])([facility] ) TELE CONSULT [id number] Notes Entered by: YUMIKO COLLINS 08 Feb 2012 1330 ------- ------- ------- ------- -- Anelio carlos queen CHELY Sánchez 02/[address] [place] [address])(S cott Interna l Medicin e Tm) [address] [place] [address])([facility] ) TELE CONSULT [id number] Notes Entered by: PRAVEENA COTTON 21 Feb 2012 1257 ------- ------- ------- ------- -- Sylvia Ingram - [id number] [facility] er 3:[id number] [place] [address] CHELY PACE 02/[address] [place] [address])(S cott Interna l Medicin e Tm) [address] [place] [address])([facility] ) OUTPATIENT [id number] headach e, problem with blood pressur e DANO RICO 03/14 Released w/o Limitations [address] [place] [address])(S cott Interna l Medicin e Tm) [address] [place] [address])([facility] ) TELE CONSULT [id number] Notes Entered by: VICKI VILLA 04 Apr 2012 1120 ------- ------- ------- ------- -- Network Results -OTORHI NOLARY 03/26/12 TEE INGRAM 04/[address] [place] [address])(S cott Interna l Medicin e Tm) [address] [place] [address])([facility] ) TELE CONSULT [id number] Notes Entered by: LARA FULTON 05 Apr 2012 1307 ------- ------- ------- ------- -- Network Results - UROLOGY 2 TEE INGRAM 04/[address] [place] [address])(S cott Interna l Medicin e Tm) [address] [place] [address])([facility] Tm) OUTPATIENT [id number] medicat ion renewal s TEE INGRAM 05/13 Released w/o Limitations [address] [place] [address])(S cott Interna l Medicin e Tm) [address] [place] [address])([facility] ) TELE CONSULT [id number] Notes Entered by: Erendira NICE 14 Nov 2012 0701 ------- ------- ------- ------- -- Med refill/ Sarita/[id number] tile 3:30 2 days left ABDULAZIZ SONG 11/[address] [place] [address])(S cott Interna l Medicin e Tm) [address] [place] [address])([facility] ) OUTPATIENT [id number] spots on right foot and wants to discuss diabete s [id number] TEE INGRAM 12/24 Released w/o Limitations [address] [place] [address])(S cott Interna l Medicin e Tm) [address] [place] [address])([facility] Disease Managemen t) TELE CONSULT [id number] Notes Entered by: FILEMON JORGE 30 Dec 2012 1520 ------- ------- ------- ------- -- Pt is a 57 y/o showing due and overdue for labs and Dilated Retinal Eye exam. FILEMON JORGE Andrews 12/[address] [place] [address] Group Travis [facility]S cott Disease Manage ent) [address] [place] [address] Travis [facility])([facility]) TELE CONSULT [id number] Notes Entered by: LISANDRO SANTIAGO 07 Jan 2013 1549 ------- ------- ------- ------- -- Ref renewal /Sarita/31 4.457.4 203 till 1530 or cell ABDULAZIZ SONG 01/[address] [place] [address] Travis [facility])(S cott Interna l Medicin e Tm) [address] [place] [address] Travis [facility])(Opt ometry) OUTPATIENT [id number] annual Dilated Retinal Eye exam - GUZMAN Pink 01/14 Released w/o Limitations [address] [place] [address] Travis [facility]O ptometr y) [address] [place] [address] Travis [facility])([facility] ) TELE CONSULT [id number] Notes Entered by: CORBY SORENSEN 20 Jan 2013 0831 ------- ------- ------- ------- -- Lab results /Sarita/(David ) or (Erendira)691- [phone] 7 TEE INGRAM 01/[address] [place] [address] Travis PEREZRobby [facility])(S cott Interna l Medicin e Tm) [address] [place] [address] Travis [facility])([facility] ) TELE CONSULT [id number] Notes Entered by: VICKI VILLA 05 Feb 2013 1120 ------- ------- ------- ------- -- Network Results -SARAH CHUNG 02/04/13 TEE INGRAM 02/[address] [place] [address] Travis [facility]S cott Interna l Medicin e Tm) [address] [place] [address] Travis [facility]) TELE CONSULT [id number] Notes Entered by: GILBERT JAVIER 11 Mar 2013 1009 ------- ------- ------- ------- -- Network Results - DERMATO LOGY 03/10/13 TEE INGRAM 03/[address] [place] [address])(S cott Interna l Medicin e Tm) [address] [place] [address])([facility]m) TELE CONSULT [id number] Notes Entered by: CORBY SORENSEN 19 Mar 2013 0955 ------- ------- ------- ------- -- Referra dulce villasenor /Sarita/Dragan 8.505.0 241 MARY CARMEN CARY I 03/[address] [place] [address])(S cott Interna l Medicin e Tm) [address] [place] [address])([facility] ) TELE CONSULT [id number] Notes Entered by: DAILY CARPIO 09 Apr 2013 1445 ------- ------- ------- ------- -- Network Results -UROLOG Y 3 TEE INGRAM 04/[address] [place] [address])(S cott Interna l Medicin e Tm) [address] [place] [address])([facility] ) TELE CONSULT [id number] Notes Entered by: DUNCAN GREER 05 May 2013 1353 ------- ------- ------- ------- -- Network Results -Podiat ry 02/26/13 TEE INGRAM 05/[address] [place] [address])(S cott Interna l Medicin e Tm) [address] [place] [address])([facility] ) OUTPATIENT [id number] follow up medicat ion [id number] TEE INGRAM 05/13 Released w/o Limitations [address] [place] [address])(S cott Interna l Medicin e Tm) [address] [place] [address])([facility] ) TELE CONSULT [id number] Notes Entered by: Erendira NICE 18 Aug 2013 1058 ------- ------- ------- ------- -- ENT referra dulce/Sarita/6 18 [phone] or [phone] CHELY PACE 08/[address] [place] [address])(S cott Interna l Medicin e Tm) [address] [place] [address])([facility] ) TELE CONSULT [id number] Notes Entered by: JOSIE CORONA 15 Oct 2013 0734 ------- ------- ------- ------- -- Med Refill- Sarita/618 -505-02 41 KEN CONWAY 10/[address] [place] [address])(S cott Interna l Medicin e Tm) [address] [place] [address])([facility] ) OUTPATIENT [id number] painful sore inside mouth; painful to eat [phone] CHET BILL 10/22 Released w/o Limitations [address] [place] [address])(S cott Interna l Medicin e Tm) [address] [place] [address])([facility] ) TELE CONSULT [id number] Notes Entered by: BAO RITTER [facility] 22 Oct 2013 1128 ------- ------- ------- ------- -- Lab and X-ray results from 4 KEN CONWAY 10/[address] [place] [address])(S cott Interna l Medicin e Tm) [address] [place] [address])([facility] ) TELE CONSULT [id number] Notes Entered by: BAO RITTER [facility] 24 Oct 2013 0747 ------- ------- ------- ------- -- Lab results from 4 CHET BILL 10/[address] [place] [address])(S cott Interna l Medicin e Tm) [address] [place] [address])([facility] ) TELE CONSULT [id number] Notes Entered by: JULIANO INGRAM 29 Oct 2013 0917 ------- ------- ------- ------- -- Study results VIVIAN BECKER 10/29 Referred for Appointment [address] [place] [address])(S cott Interna l Medicin e Tm) [address] [place] [address])([facility] ) TELE CONSULT [id number] Notes Entered by: DOMONIQUE CHAN 17 Feb 2014 1350 ------- ------- ------- ------- -- Lab Order Ezequiel /Carlos shresthaer/50 5.0241 KEN CONWAY 02/[address] [place] [address])(S cott Interna l Medicin e Tm) [address] [place] [address])([facility] ) OUTPATIENT [id number] Lab results , annual med refills JOSE J GALLAGHER 03/16 Released w/o Limitations [address] [place] [address])(S cott Interna l Medicin e Tm) [address] [place] [address])([facility] ) TELE CONSULT [id number] Notes Entered by: CORBY SORENSEN 13 Apr 2014 1238 ------- ------- ------- ------- -- New referra dulce/tam 18.505. 0241 KEN CONWAY 04/[address] [place] [address])(S cott Interna l Medicin e Tm) [address] [place] [address])([facility] ) TELE CONSULT [id number] Notes Entered by: ADELAIDE EUCEDA 05 May 2014 1116 ------- ------- ------- ------- -- Network results Optomet ry 4 JOSE J GALLAGHER 05/[address] [place] [address])(S cott Interna l Medicin e Tm) [address] [place] [address])([facility] ) TELE CONSULT [id number] Notes Entered by: GILMAR VENTURA 22 Jun 2014 1208 ------- ------- ------- ------- -- [facility] med request KEN CONWAY 06/[address] [place] [address])(S cott Interna l Medicin e Tm) [address] [place] [address])([facility] ) TELE CONSULT [id number] Notes Entered by: DAYNA ESPINOZA 13 Aug 2014 1540 ------- ------- ------- ------- -- Dermato logy referra l renewal request ed by Pt NASEEM ESPINOZA 08/13 Referred for Appointment [address] [place] [address])(S cott Interna l Medicin e Tm) [address] [place] [address])([facility] ) TELE CONSULT [id number] Notes Entered by: WALLACE REGAN 21 Sep 2014 1619 ------- ------- ------- ------- -- Network results - Pulmona ry/Kingsley so Medicin e 014 EUGENE SPRINGER 09/[address] [place] [address])(S cott Interna l Medicin e Tm) [address] [place] [address])([facility] ) TELE CONSULT [id number] Notes Entered by: ADELAIDE EUCEDA 23 Sep 2014 1501 ------- ------- ------- ------- -- Network results Optomet ry 4 AZEB HERNANDEZ V 09/[address] [place] [address])(S cott Interna l Medicin e Tm) [address] [place] [address])([facility] ) TELE CONSULT [id number] Notes Entered by: Cindy NICE 12 Oct 2014 1022 ------- ------- ------- ------- -- New referra dulce Hernandez 667.802 7 CHELY PACE 10/[address] [place] [address])(S cott Interna l Medicin e Tm) [address] [place] [address])([facility] ) TELE CONSULT [id number] Notes Entered by: VICKI VILLA 13 Jan 2015 0714 ------- ------- ------- ------- -- Network Results -DERMAT OLOGY 10/21/14 CHET BILL 01/[address] [place] [address])(S cott Interna l Medicin e Tm) [address] [place] [address])([facility] Disease [facility] t) TELE CONSULT [id number] Notes Entered by: FILEMON JORGE 15 Feb 2015 1627 ------- ------- ------- ------- -- Pt needing fasting labs and f/u appt. FILEMON JORGE 02/[address] [place] [address])(S cott Disease Managem ent) [address] [place] [address])([facility] ) OUTPATIENT [id number] f/u lab results - med refills - needs 3 referra whitney (Diab) JORGE FUNK V 03/11 Released w/o Limitations [address] [place] [address])(S cott Interna l Medicin e Tm) [address] [place] [address])([facility] ) TELE CONSULT [id number] Notes Entered by: PENNY SALAMANCA 01 Apr 2015 1257 ------- ------- ------- ------- -- Rx renewal - Garett - [phone] -8027/6 [id number] CHELY PACE 04/[address] [place] [address])(S cott Interna l Medicin e Tm) [address] [place] [address])([facility] ) TELE CONSULT [id number] Notes Entered by: Leah WATT 08 Apr 2015 0738 ------- ------- ------- ------- -- ER F/U- Ortho Ref/ Garett / CHELY PACE 04/[address] [place] [address])(S cott Interna l Medicin e Tm) [address] [place] [address])(Min or Procedure Clinic) OUTPATIENT [id number] 3rd floor [facility]/Pr eop clinic QUYEN ALVAREZ 04/12 Released w/o Limitations [address] [place] [address])( inor Procedu re Clinic) [address] [place] [address])([facility] ) TELE CONSULT [id number] Notes Entered by: VICKI VILLA 27 Apr 2015 1144 ------- ------- ------- ------- -- Network Results OTORHIN OLARYNG OLOGY 04/26/15 JORGE FUNK V 04/[address] [place] [address])(S cott Interna l Medicin e Tm) [address] [place] [address])(Min or Procedure Clinic) OUTPATIENT [id number] 2ND FLOOR [facility]/SC RUBEN C-SCOPE CONNOR YODER 05/18 Released w/o Limitations [address] [place] [address])(M inor Procedu re Clinic) [address] [place] [address])([facility] FAMRES Tm Blue) TELE CONSULT [id number] Notes Entered by: KRISTY ARCHER 19 May 2015 1508 ------- ------- ------- ------- -- Call back C-scope on 1dec15- KRISTY Olivas 05/[address] [place], [place] [address] Travis [facility])([facility] FAMRES Tm Blue) [address] [place] [address] Travis [facility])([facility] ) OUTPATIENT [id number] hand pain//3 [phone] TEO ENRIQUEZ 06/25 Released w/o Limitations [address] [place] [address] Travis [facility])(S cott Intern[facility] Medicin [facility] Tm) [address] [place] [address] Travis [facility])([facility] ) TELE CONSULT [id number] Notes Entered by: TEO ENRIQUEZ 06 Jul 2015 1502 ------- ------- ------- ------- -- Lab results ARACELI OROZCO 07/06 Referred for Appointment [address] [place] [address] Travis [facility])( cott Interna l Medicin e Tm) [address] [place] [address] Travis [facility])([facility] ) TELE CONSULT [id number] Notes Entered by: DUNCAN GREER 03 Sep 2015 1027 ------- ------- ------- ------- -- Network Results RHEUMAT OLOGY 09/01/15 TEO ORELLANA 09/[address] [place] [address] Travis [facility])(S [facility] T[facility]) [address] [place] [address] Travis [facility])([facility] ) OUTPATIENT [id number] F/U lab results TEO ENRIQUEZ 09/19 Released w/o Limitations [address] [place] [address] Travis [facility])(S [facility] T[facility]) [address] [place] [address] Travis [facility])([facility] ) TELE CONSULT [id number] Notes Entered by: KATJA CANTU 03 Dec 2015 1531 ------- ------- ------- ------- -- Network Results Rheumat ology 6 SR TEO ENRIQUEZ 12/[address] [place] [address] B ([facility]S cott Interna l Medicin e Tm) [address] [place] [address] Travis B ([facility])([facility] ) TELE CONSULT [id number] Notes Entered by: DUNCAN GREER 17 Mar 2016 0910 ------- ------- ------- ------- -- Network Results RHEUMAT OLOGY 03/15/16 KG DEBBIE, DACRE 03/[address] [place] [address] [employer] ([facility])(S cott Interna l Medicin e Tm) [address] [place] [address] Travis B ([facility])([facility] ) OUTPATIENT [id number] f/u on labs 391.709 3 ENRIQUEZ, DACRE 03/28 Released w/o Limitations [address] [place] [address] Travis B ([facility]S cott Intern[facility] l Medicin [facility] Tm) [address] [place] [address] Travis B ([facility])([facility] ) OUTPATIENT [id number] Low R Back pain [id number] ENRIQUEZ, DACRE 04/11 Released w/o Limitations [address] [place] [address] [employer] ([facility])(S cott Intern[facility] l Medicin e Tm) [address] [place] [address] Travis B ([facility] ) TELE CONSULT [id number] Notes Entered by: ADELAIDE EUCEDA 06 Jun 2016 1608 ------- ------- ------- ------- -- Network Results Rheumat ology 6 DEBBIE, DACRE 06/[address] [place] [address] Travis B ([facility])(S cott Intern[facility] l Medicin e Tm) [address] [place] [address] Travis B ([facility])([facility] ) TELE CONSULT [id number] Notes Entered by: WALLACE REGAN 09 Jun 2016 1442 ------- ------- ------- ------- -- Network results Ophthal mology 016 DMJ DEBBIE, DACRE 06/[address] [place] [address] [employer] ([facility])(S cott Interna l Medicin e Tm) [address] [place] [address])([facility] ) TELE CONSULT [id number] Notes Entered by: ASH HE 17 Jul 2016 0849 ------- ------- ------- ------- -- Referra l renewal /Med renewal /Debbie // EUGENE Molina 07/[address] [place] [address])(S [facility] Intern[facility] Medic[facility] Tm) [address] [place] [address])([facility] ) TELE CONSULT [id number] Notes Entered by: DELIA YOUNG 30 Aug 2016 1212 ------- ------- ------- ------- -- Network Results -RHEUMA TOLOGY 08/29/16 JORGE LAMAS V 08/[address] [place] [address])(S [facility] Tm) [address] [place] [address])([facility] ) TELE CONSULT [id number] Notes Entered by: DARRON TENA 04 Oct 2016 0944 ------- ------- ------- ------- -- Network Results Radiolo gy 7 BG ABDOMEN 1 VIEW JORGE FUNK V 10/[address] [place] [address])(S [facility]) [address] [place] [address])([facility] ) TELE CONSULT [id number] Notes Entered by: SHAHLA BA 16 Oct 2016 1417 ------- ------- ------- ------- -- Renewal Renewal Request /Dayana irwin/ DAVID MARES 10/16 Referred for Appointment [address] [place] [address])(S [facility]) [address] [place] [address])([facility] ) TELE CONSULT [id number] Notes Entered by: FARNSISCO LLOYD 17 Oct 2016 1004 ------- ------- ------- ------- -- Network Results Radiolo gy 7 JORGE RAMOS ABD, V 10/[address] [place] [address])(S [facility] Tm) [address] [place] [address])([facility] ) TELE CONSULT [id number] Notes Entered by: FRANSISCO LLOYD 20 Oct 2016 1356 ------- ------- ------- ------- -- Network Results Laborat ory 7 JORGE RAMOS V 10/[address] [place] [address])(S [facility]) [address] [place] [address])([facility] ) TELE CONSULT [id number] Notes Entered by: JEANNETTE HAWK 23 Oct 2016 1432 ------- ------- ------- ------- -- Network Results Laborat ory 10/20/16 JORGE MCCLELLAN V 10/[address] [place] [address] Travis [facility])(S [facility] Intern[facility] Medic[facility] Tm) [address] [place] [address])([facility] ) TELE CONSULT [id number] Notes Entered by: FRANSISCO LLOYD 25 Oct 2016 0619 ------- ------- ------- ------- -- Network Results Radiolo gy 7 JORGE STRONG ABD, V 10/[address] [place] [address] Travis [facility])(S [facility] T[facility]) [address] [place] [address])([facility] ) TELE CONSULT [id number] Notes Entered by: FRANSISCO LLOYD 26 Oct 2016 0830 ------- ------- ------- ------- -- Network Results Radiolo gy 7 JORGE COLLAZO V 10/[address] [place] [address] Group [facility])(S cott Intern[facility] l Medicin [facility] Tm) [address] [place] [address])([facility] ) TELE CONSULT [id number] Notes Entered by: FRANSISCO LLOYD 30 Oct 2016 0812 ------- ------- ------- ------- -- Network Results Laborat ory 7 JORGE RAMOS V 10/[address] [place] [address] Travis [facility])(S cott Intern[facility] Medic[facility] Tm) [address] [place] [address])([facility] ) TELE CONSULT [id number] Notes Entered by: FRANSISCO LLOYD 30 Oct 2016 1244 ------- ------- ------- ------- -- Network Results Urology 6 JORGE RAMOS V 10/[address] [place] [address] Travis [facility])(S [facility] Medic[facility] Tm) [address] [place] [address])([facility] ) TELE CONSULT [id number] Notes Entered by: ADELAIDE EUCEDA 01 Nov 2016 1051 ------- ------- ------- ------- -- Network Results Urologi trevor Surgery 7 JORGE BEVERLY V 11/[address] [place] [address])(S [facility] Tm) [address] [place] [address])([facility] ) TELE CONSULT [id number] Notes Entered by: ASH HE 17 Nov 2016 1240 ------- ------- ------- ------- -- Sylvia Villasenor /Dayana irwin/ /clm KARINA LORENZO MARY ELLEN Dulce 11/17 Referred for Appointment [facility] Travis [facility])(S [facility] Intern[facility] Medic[facility] T[facility]) [address] [place] [address] Group Travis [facility])([facility] ) TELE CONSULT [id number] Notes Entered by: Leah WATT 22 Nov 2016 1005 ------- ------- ------- ------- -- Med Renewal /demetrius irwin/ - MARSHALL Gallardo 11/22 Referred for Appointment [facility] Medical Group [facility])(S [facility] Medic[facility] Tm) [address] [place] [address] Group [facility])([facility] ) TELE CONSULT [id number] Notes Entered by: PRAVEENA COTTON 04 Dec 2016 0904 ------- ------- ------- ------- -- Update Referra l - appt December 20 - Garett - [phone] EUGENE Toro 12/[address] [place] [address] Group [facility])(S [facility] Medic[facility] Tm) [address] [place] [address] Group [facility])([facility] ) TELE CONSULT [id number] Notes Entered by: PEPE QUEVEDO 11 Jan 2017 0704 ------- ------- ------- ------- -- SX high blood , med renewal /DODavid E/ [id number] KELLI TRAN 01/11 [facility] Travis [facility])(S [facility] Tm) [address] [place] [address] Travis [facility])([facility]) OUTPATIENT [id number] HTN f/u PATTY PACE 01/25 Released w/o Limitations [address] [place] [address] Travis [facility])([facility]) [facility] Travis [facility])([facility] ) OUTPATIENT [id number] F/u hernia repair JORGE FUNK V 01/25 Released w/o Limitations [address] [place] [address] Travis [facility])(S [facility] T[facility]) [address] [place] [address] Travis [facility])([facility] ) TELE CONSULT [id number] Notes Entered by: SHAHLA BA 15 Feb 2017 0801 ------- ------- ------- ------- -- Med Bridge/ Garett / KELLI TRAN 02/[address] [place] [address])(S [facility] Tm) [address] [place] [address])([facility] ) TELE CONSULT [id number] Notes Entered by: WALLACE REGAN 22 Feb 2017 1555 ------- ------- ------- ------- -- Network results Surgery 017 ZULY WILSON 02/[address] [place] [address] Travis [facility])(S cott Intern[facility] Medic[facility] Tm) [address] [place] [address])([facility] ) OUTPATIENT [id number] Medicat ion Renewal , Discuss [facility] letter [id number] JORGE FUNK V 02/28 Released w/o Limitations [address] [place] [address])(S [facility] Tm) [address] [place] [address])([facility] ) TELE CONSULT [id number] Notes Entered by: CHRISTIAN HARRELL 01 Mar 2017 1349 ------- ------- ------- ------- -- Network Results - Otorhin olaryng ology (ENT) 7 ZULY CLARK 03/[address] [place] [address] Travis [facility])(S [facility] T[facility]) [address] [place] [address])([facility] ) TELE CONSULT [id number] Notes Entered by: Waldo SALDIVAR 06 Mar 2017 1023 ------- ------- ------- ------- -- Network results Dermato logy 12/20/16 JORGE HOLMAN V 03/[address] [place] [address])(S [facility]) [address] [place] [address])([facility] ) TELE CONSULT [id number] Notes Entered by: Waldo SALDIVAR 15 Mar 2017 0811 ------- ------- ------- ------- -- Network Results Rheumat ology 03/07/17 JORGE HOLMAN V 03/[address] [place] [address])(S [facility] T[facility]) [address] [place] [address])([facility] ) TELE CONSULT [id number] Notes Entered by: SHAHLA BA 02 Apr 2017 1126 ------- ------- ------- ------- -- Paperwo rachael Cabral/ Garett / MARSHALL BRAVO 04/02 Referred for Appointment [address] [place] [address])(S [facility]) [address] [place] [address])([facility] ) TELE CONSULT [id number] Notes Entered by: DELIA YOUNG 16 May 2017 1019 ------- ------- ------- ------- -- Network Results -OPHTHA LMOLOGY 7 JORGE LAMAS V 05/[address] [place] [address])(S [facility]m) [address] [place] [address])([facility] ) TELE CONSULT [id number] Notes Entered by: DARRON TENA 17 May 2017 1150 ------- ------- ------- ------- -- Network Results Radiolo gy 7 JORGE FUNK V 05/[address] [place] [address] Group [facility])(S cott Intern[facility] l Medicin [facility] Tm) [address] [place] [address] Group [facility])([facility]) TELE CONSULT [id number] Notes Entered by: FRANSISCO LLOYD 18 May 2017 0951 ------- ------- ------- ------- -- Network Results Urology 7 JOGRE FUNK V 05/[address] [place] [address] Group [facility])(S cott Intern[facility] l Medicin [facility] Tm) [address] [place] [address] Group [facility])([facility] ) TELE CONSULT [id number] Notes Entered by: SHAHLA BA 23 May 2017 0818 ------- ------- ------- ------- -- Med [facility] /Dayana irwin/ EUGENE SPRINGER 05/23 [facility] Medical Group [facility])(S cott Interna l Medicin e Tm) [address] [place] [address])([facility] ) TELE CONSULT [id number] Notes Entered by: SHAHLA BA 23 May 2017 1341 ------- ------- ------- ------- -- Referra l Renewal Request (appt May)/Max ndowe/6 [phone] [id number] DAVID MARES 05/23 Referred for Appointment [facility] Medical Group [facility])(S cott Interna l Medicin e Tm) [address] [place] [address])([facility] ) TELE CONSULT [id number] Notes Entered by: EUGENE SPRINGER 14 Jun 2017 1211 ------- ------- ------- ------- -- Walked into clinic c/o cold Sx's GIAN EUGENE Lynn 06/[address] [place] [address])(S cott Intern[facility] l Medicin e Tm) [address] [place] [address])([facility]) OUTPATIENT [id number] PATTY JHAVERI 06/14 Released w/o Limitations [address] [place] [address])([facility] Pharm [facility]) [address] [place] [address])([facility] ) TELE CONSULT [id number] Notes Entered by: LUPE ALMONTE 25 Jun 2017 1416 ------- ------- ------- ------- -- Network Results - Rheumat ology 7 JORGE FUNK V 06/[address] [place] [address])(S [facility] Intern[facility] Medic[facility] Tm) [address] [place] [address])([facility] ) TELE CONSULT [id number] Notes Entered by: RYAN BRUNO 19 Jul 2017721 ------- ------- ------- ------- -- Иван Villasenor / Garett / - sgj KELLI TRAN 07/[address] [place] [address])(S [facility] Intern[facility] Medicin [facility] Tm) [address] [place] [address])([facility] ) TELE CONSULT [id number] Notes Entered by: ASH HE 15 Aug 2017 0918 ------- ------- ------- ------- -- Sylvia Gonzalez /Dayana irwin/ /clm KELLI TRAN 08/[address] [place] [address])(S cott Intern[facility] Medicin [facility] Tm) [address] [place] [address])([facility] ) TELE CONSULT [id number] Notes Entered by: SHAHLA BA 16 Oct 2017 0753 ------- ------- ------- ------- -- Referra l Renewal Request (appt 16 November)/Magdi byrd/ LAWRENCE MARSHALL A 10/16 Referred for Appointment [address] [place] [address] Group [facility])(S cott Interna l Medicin e Tm) [address] [place] [address])([facility] ) TELE CONSULT [id number] Notes Entered by: ASHLEY SAGE RET 14 Jan 2018 0738 ------- ------- ------- ------- -- Ref Renewal Dermato logy/Max chine/6 [id number]. [id number] JORGE Tan 01/14 Immediate Referral [address] [place] [address])(S [facility] Medic[facility] Tm) [address] [place] [address])([facility] ) OUTPATIENT [id number] f/u for bp and med adjustm ent [id number] JORGE FUNK V 01/24 Released w/o Limitations [address] [place] [address])(S [facility] Tm) [address] [place] [address])([facility] ) TELE CONSULT [id number] Notes Entered by: LISANDRO SANTIAGO 31 Jan 2018 1019 ------- ------- ------- ------- -- Referra l renewal /dayana irwin/[id number] JORGE SORENSEN 01/31 Immediate Referral [address] [place] [address])(S [facility] Tm) [address] [place] [address])([facility] ) TELE CONSULT [id number] Notes Entered by: JORGE SORENSEN 31 Jan 2018 1248 ------- ------- ------- ------- -- BP reading s for JORGE Carvalho 01/31 Released to Self Care [facility] Medical Group [facility])(S cott Intern[facility] l Medicin [facility] Tm) [address] [place] [address] Group [facility])([facility] ) TELE CONSULT [id number] Notes Entered by: SHAHLA BA 19 Feb 2018 0805 ------- ------- ------- ------- -- Multipl e Olamide/ Garett /391.70 93 JORGE SORENSEN 02/19 Released to Self Care [facility] Medical Group [facility])(S cott Interna l Medicin e Tm) [address] [place] [address] Group [facility])([facility] ) TELE CONSULT [id number] Notes Entered by: Waldo SALDIVAR 26 Feb 2018 1547 ------- ------- ------- ------- -- Referra cardona renewal for Rheumat MARY ELLEN Lazcano 02/26 Referred for Appointment [address] [place] [address] Group [facility])(S [facility] Intern[facility] Medicin e Tm) [facility])([facility] ) TELE CONSULT [id number] Notes Entered by: PRAVEENA COTTON 04 Mar 2018 0857 ------- ------- ------- ------- -- Med Refill - med [place] Funk - [phone] [id number] JORGE SORENSEN 03/04 Released to Self Care [facility] Medical Group [facility])(S cott Interna l Medicin e Tm) [facility])([facility] ) TELE CONSULT [id number] Notes Entered by: SHAHLA BA 18 Mar 2018 0946 ------- ------- ------- ------- -- Med Renewal s/Christina alberto618. 391.709 3 JORGE SORENSEN 03/18 Medication Refill Forwarded [address] [place] [address])(S [facility]) [address] [place] [address])([facility] Tm) TELE CONSULT [id number] Notes Entered by: Hedy SAUCEDA 01 Apr 2018 0856 ------- ------- ------- ------- -- Micare msg / med refill x gwp MARY ELLEN GEIGER 04/01 Referred for Appointment [address] [place] [address])(S [facility] Intern[facility] Medic[facility] Tm) [address] [place] [address])([facility] t) TELE CONSULT [id number] Notes Entered by: NATA CARRENO 09 Apr 2018 1344 ------- ------- ------- ------- -- Disease Managem ent- Annual f/u and Labs NATA CARRENO 04/09 Other Not Elsewhere Classified [address] [place] [address])(S cott Disease Managem ent) [address] [place] [address])([facility] Tm) TELE CONSULT [id number] Notes Entered by: COLBY HARRIS 21 May 2018 0847 ------- ------- ------- ------- -- Med refill/ Dr. Funk / JORGE SORENSEN 05/21 Medication Refill Forwarded [address] [place] [address])(S [facility] Intern[facility] Medic[facility] Tm) [address] [place] [address])([facility] Tm) TELE CONSULT [id number] Notes Entered by: GILMAR VENTURA 20 Jun 2018 1030 ------- ------- ------- ------- -- MARY ELLEN Beach 06/20 Referred for Appointment [address] [place] [address])(S [facility] Intern[facility] Medic[facility] Tm) [address] [place] [address])([facility] ) TELE CONSULT [id number] 2 Notes Entered by: Hedy SAUCEDA 14 Aug 2018 0900 ------- ------- ------- ------- -- Micare msg / med refill / gwJORGE Max 08/14 Medication Refill Forwarded [address] [place] [address])([facility] Tm) [address] [place] [address])([facility] ) TELE CONSULT [id number] Notes Entered by: Hedy SAUCEDA 02 Sep 2018 1010 ------- ------- ------- ------- -- Micare msg/ referra l request / gwp JORGE SORENSEN 09/02 Immediate Referral [address] [place] [address])([facility] Tm) [address] [place] [address])([facility] ) TELE CONSULT [id number] Notes Entered by: Hedy SAUCEDA 12 Sep 2018 0923 ------- ------- ------- ------- -- Micare msg/ referra l request / gwp EUGENE SPRINGER 09/12 Released w/o Limitations [address] [place] [address])([facility] Tm) [address] [place] [address])([facility] ) TELE CONSULT [id number] Notes Entered by: Hedy SAUCEDA 16 Sep 2018 0924 ------- ------- ------- ------- -- Micare msg/ referra l request / gwp JORGE SORENSEN 09/16 Immediate Referral [address] [place] [address])(S [facility] Intern[facility] l Medicin e Tm) [address] [place] [address])([facility] ) TELE CONSULT [id number] Notes Entered by: Hedy SAUCEDA 18 Sep 2018 0923 ------- ------- ------- ------- -- Micare msg/ referra l renewal / zacheryp TONY COLE 09/18 Referred for Appointment [address] [place] [address])(S [facility] Intern[facility] Medic[facility] Tm) [address] [place] [address])([facility] ) TELE CONSULT [id number] Notes Entered by: NATALEE CALERO 07 Nov 2018 1057 ------- ------- ------- ------- -- Network Results Podiatr y 019 TEO HOPE 11/[address] [place] [address])([facility] Intern[facility] Medic[facility] Tm) [address] [place] [address])([facility] ) TELE CONSULT [id number] Notes Entered by: Magdi VALDES 02 Dec 2018 1214 ------- ------- ------- ------- -- Network results Urology 019 AMILCAR GOLDMAN 12/[address] [place] [address])([facility] Intern[facility] Medicin [facility] Tm) [address] [place] [address])([facility] ) TELE CONSULT [id number] Notes Entered by: Hedy SAUCEDA 03 Feb 2019 0831 ------- ------- ------- ------- -- micare msg/ med refill x 4 / EUGENE Reyes 02/03 Medication Refill Forwarded [address] [place] [address])([facility] Intern[facility] Medic[facility] Tm) [address] [place] [address])([facility] ) TELE CONSULT [id number] Notes Entered by: SAHLEY SAGE RET 03 Feb 2019 1220 ------- ------- ------- ------- -- Lab Order- Appt ight/61 [id number] 900 EUGENE SPRINGER 02/03 Other Not Elsewhere Classified [facility] Medical Group [facility])(S cott Interna l Medicin e Tm) [address] [place] [address] Group [facility])([facility] ) OUTPATIENT [id number] annual visit and lab review AMILCAR PRECIADO 02/25 Released w/o Limitations [address] [place] [address] Group [facility])(S cott Interna l Medicin e Tm) [address] [place] [address])([facility] ) TELE CONSULT [id number] Notes Entered by: Hedy SAUCEDA 01 Apr 2019 1240 ------- ------- ------- ------- -- Shawna agarwal/ sylvia cardona request / MARY ELLEN Prakash 04/01 Referred for Appointment [facility] Medical Group [facility])(S cott Interna l Medicin e Tm) [facility] Medical [facility])([facility] ) OUTPATIENT [id number] 4 Luis Antonio schultz in chest AMILCAR PRECIADO 04/14 Released w/o Limitations [address] [place] [address])([facility] Intern[facility] Medicin [facility] Tm) [address] [place] [address])([facility] ) TELE CONSULT [id number] Notes Entered by: GILMAR VENTURA 14 Apr 2019 1624 ------- ------- ------- ------- -- WHEEEUGENE YANCEY 04/14 Referred for Appointment [address] [place] [address] Group [facility])(S cott Interna l Medicin e Tm) [address] [place] [address])([facility] ) OUTPATIENT [id number] F/u Cough AMILCAR PRECIADO 05/01 Released w/o Limitations [address] [place], [place] [address]B [facility])([facility] Intern[facility] Tm) [address] [place] [address] Travis [facility])([facility] ) OUTPATIENT [id number] pain in right arm (hand - elbow - shoulde r) FLAKITO MARTINO 08/07 Released w/o Limitations [address] [place] [address] Travis [facility])(S cott Interna l Medicin e Tm) [address] [place] [address] Travis [facility])([facility] ) TELE CONSULT [id number] Notes Entered by: ADELINA MORALES 13 Aug 2019 1625 ------- ------- ------- ------- -- Network results Physica l Therapy 020 FLAKITO RICE 08/[address] [place] [address] Travis [facility])(S cott Interna l Medicin e Tm) [address] [place] [address] Travis [facility])([facility] ) TELE CONSULT [id number] Notes Entered by: ADELINA MORALES 01 Sep 2019 1139 ------- ------- ------- ------- -- Network results Physica l Therapy 020 FLAKITO RICE 08/[address] [place] [address] Travis [facility])(S cott Interna l Medicin e Tm) [address] [place] [address] Travis [facility])([facility] ) TELE CONSULT [id number] Notes Entered by: GILMAR VENTURA 16 Sep 2019 1151 ------- ------- ------- ------- -- MARY ELLEN Beach 09/15 Other Not Elsewhere Classified [address] [place] [address] Travis [facility])(S cott Interna l Medicin e Tm) [address] [place] [address] Travis [facility])([facility] ) TELE CONSULT [id number] Notes Entered by: GILMAR VENTURA 20 Oct 2019 1021 ------- ------- ------- ------- -- [facility]- ReferMARY ELLEN Marmolejo 10/19 Referred for Appointment [address] [place] [address])([facility] Intern[facility] Medicin [facility] Tm) [address] [place] [address])([facility] ) TELE CONSULT [id number] Notes Entered by: Hedy SAUCEDA 24 Nov 2019 0805 ------- ------- ------- ------- -- Micamichael agarwal/ appt request / B/P concern s / EUGENE Reeys 11/23 Other Not Elsewhere Classified [address] [place] [address])([facility]) [address] [place] [address])([facility] ) OUTPATIENT [id number] elevate d BP and low back pain, call [phone] FLAKITO MARTINO 11/24 Released w/o Limitations [address] [place] [address])([facility] Tm) [address] [place] [address])([facility] ) TELE CONSULT [id number] Notes Entered by: NATALEE CALERO 25 Nov 2019 1246 ------- ------- ------- ------- -- Network results Physica l Therapy 020 FLAKITO BRYA 11/[address] [place] [address])([facility] Intern[facility] Medicin [facility] Tm) [address] [place] [address])([facility] ) TELE CONSULT [id number] 1 Notes Entered by: ST CHANDLER BUNDY 11 Dec 2019 0924 ------- ------- ------- ------- -- Network results Podiatr y 020 BOONE VARGAS 12/[address] [place] [address])([facility]) [address] [place] [address])([facility] ) TELE CONSULT [id number] 5 Notes Entered by: Hedy SAUCEDA 12 Dec 2019 1049 ------- ------- ------- ------- -- shawna agarwal/ Robby/Jada reading s / EUGENE Reyes 12/11 Other Not Elsewhere Classified [address] [place] [address] Group [facility])(S cott Interna l Medicin e Tm) [address] [place] [address])([facility] ) TELE CONSULT [id number] Notes Entered by: Hedy SAUCEDA 17 Dec 2019 1037 ------- ------- ------- ------- -- Shawna agarwal/ MEÑO / Robby/Jada /EUGENE Reyes 12/16 Other Not Elsewhere Classified [address] [place] [address] Group [facility])(S cott Interna l Medicin e Tm) [address] [place] [address])([facility] ) TELE CONSULT [id number] 0 Notes Entered by: GILMAR VENTURA 24 Dec 2019 0734 ------- ------- ------- ------- -- Shawna_ office Note EUGENE SPRINGER 12/23 Advice Assessment [address] [place] [address] Group [facility])(S cott Interna l Medicin e Tm) [address] [place] [address])([facility] ) TELE CONSULT [id number] 3 Notes Entered by: ST CHANDLER BUNDY 26 Dec 2019 1229 ------- ------- ------- ------- -- Network results Physica l Therapy 020 FLAKITO SNELL 12/[address] [place] [address])([facility] Intern[facility] Medicin [facility] Tm) [address] [place] [address])([facility] ) TELE CONSULT [id number] Notes Entered by: Hedy SAUCEDA 09 Jan 2020 0750 ------- ------- ------- ------- -- Micare msg/ B/P reading kevin / EUGENE Reyes 01/08 Other Not Elsewhere Classified [address] [place] [address])([facility]) [address] [place] [address])([facility] ) TELE CONSULT [id number] 9 Notes Entered by: Hedy SAUCEDA 01 Mar 2020 0940 ------- ------- ------- ------- -- Micare msg/ med refill x pill left / EUGENE Reyes 03/01 Medication Refill Forwarded [address] [place] [address])([facility]) [address] [place] [address])([facility] ) TELE CONSULT [id number] Notes Entered by: RYAN BRUNO 01 Mar 2020 1112 ------- ------- ------- ------- -- Lab Order Request -Appt Feb-Ellis ramirez Like to do Lab Work ameliaers/9 [phone] MARY ELLEN GEIGER 03/01 Other Not Elsewhere Classified [address] [place] [address])([facility]) [address] [place] [address])([facility] ) OUTPATIENT [id number] Virtual Appt - general check up/medi cations /lab results - [id number] FLAKITO MARTINO 03/02 Released w/o Limitations [address] [place] [address])([facility]) [address] [place] [address])([facility] ) TELE CONSULT [id number] 3 Notes Entered by: Hedy SAUCEDA 26 Mar 2020 0813 ------- ------- ------- ------- -- micare msg/ medicat ion request / EUGENE Reyes 03/26 Medication Refill Forwarded [address] [place] [address] Travis [facility]IVEROS ([facility]S cott Interna l Medicin e Tm) [address] [place] [address] Travis OLIVEROS ([facility])(Sco tt Internal Medicine Tm) TELE CONSULT [id number] 0 Notes Entered by: Hedy SAUCEDA 10 May 2020 0807 ------- ------- ------- ------- -- micare msg/ med refill x 4 /EUGENE Reyes 05/10 Medication Refill Forwarded [address] [place] [address] Travis [facility]IVEROS ([facility])(S cott Interna l Medicin e Tm) [facility] QNHP OL DIG ASSMT&MGMT 5-10 [id number] Diagnos is: ICD-10- CM H90.A31 Mix cndct/s nrl hear loss,un i,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 IVONECONI Magdi 10/28 [facility] HEARING AID EXAM BOTH EARS [id number] Diagnos is: ICD-10- CM H90.A31 Mix cndct/s nrl hear loss,un i,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 SEJAL OJEDA 10/30 [facility] TYMPANOMET RY & REFLEX THRESH [id number] [id number] 2 Diagnos is: ICD-10- CM H90.A31 Mix cndct/s nrl hear loss,un i,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 SEJAL OJEDA M 10/30 [facility] Outpatient Encounter [id number] 10/30 [facility] Outpatient Encounter [id number] 10/30 [facility] HEARING SERVICE [id number] Diagnos is: ICD-10- CM H90.A31 Mix cndct/s nrl hear loss,un i,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 SEJAL OJEDA 11/29 [facility] Outpatient Encounter [id number] 12/16 [facility] O/P EST MOD 30 MIN [id number] Diagnos is: ICD-10- CM Z00.00 Encntr for general adult medical exam w/o abnorma l finding s Waldo LIRIANO L 02/19 [facility] Outpatient Encounter [id number] 02/20 [facility] Procedures Combined list of: 1) Procedures from Department of Veterans Affairs facilities going back up to thelast 18 months, not all VA non-surgical procedures are included; 2) All procedures from the Department of Defense facilities. Procedure Procedure Type Code Date Perfomer Comments Sourc e No data available for this section Ambulato ry Pharmacy Non-Physician Phone Call To Patient/Provider Brief (5-10min) Non-Physician Phone Call To Patient/Provider Brief (5-10min) [id number] 2018 JITENDRA ZURITA [facility] Internet Med Svc Qual Nonphys Healthcare Prof Estab Patient Internet Med Svc Qual Nonphys Healthcare Prof Estab Patient [id number] 2018 MARY ELLEN WEBB DoD Non-Physician Phone Call To Patient/Provider Brief (5-10min) Non-Physician Phone Call To Patient/Provider Brief (5-10min) [id number] 2017 JORGE SORENSEN [facility] Disease management program, follow-up/obdulio e ment 2017 NATA CARRENO DoD Internet Med Svc Qual Nonphys Healthcare Prof Estab Patient Internet Med Svc Qual Nonphys Healthcare Prof Estab Patient [id number] 2017 JORGE FUNK V [facility] Non-Physician Phone Call To Patient/Provider Brief (5-10min) Non-Physician Phone Call To Patient/Provider Brief (5-10min) [id number] 2017 JORGE SORENSEN DoD Non-Physician Phone Call To Patient/Provider Brief (5-10min) Non-Physician Phone Call To Patient/Provider Brief (5-10min) [id number] 2017 JORGE SORENSEN DoD Non-Physician Phone Call To Patient/Provider Brief (5-10min) Non-Physician Phone Call To Patient/Provider Brief (5-10min) [id number] 2017 MARY ELLEN WEBB DoD Non-Physician Phone Call To Patient/Provider Brief (5-10min) Non-Physician Phone Call To Patient/Provider Brief (5-10min) [id number] 2017 JORGE SORENSEN DoD Non-Physician Phone Call To Patient/Provider Brief (5-10min) Non-Physician Phone Call To Patient/Provider Brief (5-10min) [id number] 2017 JORGE SORENSEN DoD Non-Physician Phone Call To Patient/Provider Brief (5-10min) Non-Physician Phone Call To Patient/Provider Brief (5-10min) [id number] 2017 JORGE SORENSEN DoD Non-Physician Phone Call To Patient/Provider Brief (5-10min) Non-Physician Phone Call To Patient/Provider Brief (5-10min) 90504 2017 MARSHALL BRAVO DoD Non-Physician Phone Call To Patient/Provider Brief (5-10min) Non-Physician Phone Call To Patient/Provider Brief (5-10min) [id number] 2017 PATTY PACE DoD Non-Physician Phone Call To Patient/Provider Brief (5-10min) Non-Physician Phone Call To Patient/Provider Brief (5-10min) [id number] 2017 JORGE FUNK V [facility] Med Management By Pharmacist Initial 15 Min Estab Patient Med Management By Pharmacist Initial 15 Min Estab Patient [id number] 2016 PATTY PACE DoD Non-Physician Phone Call To Patient/Provider Brief (5-10min) Non-Physician Phone Call To Patient/Provider Brief (5-10min) [id number] 2016 DAVID MARES [facility] Non-Physician Phone Call To Patient/Provider Brief (5-10min) Non-Physician Phone Call To Patient/Provider Brief (5-10min) [id number] 2016 EUGENE SPRINGER [facility] Non-Physician Phone Call To Patient/Provider Brief (5-10min) Non-Physician Phone Call To Patient/Provider Brief (5-10min) [id number] 2016 MARSHALL BRAVO [facility] Non-Physician Phone Call To Patient/Provider Brief (5-10min) Non-Physician Phone Call To Patient/Provider Brief (5-10min) [id number] 2016 KELLI TRAN [facility] Med Management By Pharmacist Initial 15 Min New Patient Med Management By Pharmacist Initial 15 Min New Patient [id number] 2016 PATTY PACE [facility] Non-Physician Phone Call To Patient/Provider Brief (5-10min) Non-Physician Phone Call To Patient/Provider Brief (5-10min) [id number] 2016 KELLI TRAN [facility] Non-Physician Phone Call To Patient/Provider Brief (5-10min) Non-Physician Phone Call To Patient/Provider Brief (5-10min) [id number] 2016 EUGENE SPRINGER [facility] Non-Physician Phone Call To Patient/Provider Brief (5-10min) Non-Physician Phone Call To Patient/Provider Brief (5-10min) [id number] 2016 MARSHALL BRAVO [facility] Non-Physician Phone Call To Patient/Provider Brief (5-10min) Non-Physician Phone Call To Patient/Provider Brief (5-10min) 31901 2016 MARY ELLEN WEBB [facility] Non-Physician Phone Call To Patient/Provider Brief (5-10min) Non-Physician Phone Call To Patient/Provider Brief (5-10min) 78227 2016 DAVID MARES [facility] Non-Physician Phone Call To Patient/Provider Brief (5-10min) Non-Physician Phone Call To Patient/Provider Brief (5-10min) [id number] 2016 EUGENE SPRINGER [facility] Complete Colonoscopy Complete Colonoscopy [id number] 2014 CONNOR YODER [facility] Telephone calls by a registered nurse to a disease management program member for monitoring purposes; per month 2014 FILEMON JORGE [facility] Non-Physician Phone Call To Patient/Provider Brief (5-10min) Non-Physician Phone Call To Patient/Provider Brief (5-10min) [id number] 2014 FILEMON JORGE [facility] Non-Physician Phone Call To Pt/Provider Intermed (11-20 min) Non-Physician Phone Call To Pt/Provider Intermed (11-20 min) [id number] 2014 CHELY PACE [facility] Non-Physician Phone Call To Patient/Provider Brief (5-10min) Non-Physician Phone Call To Patient/Provider Brief (5-10min) [id number] 2014 NASEEM ESPINOZA [facility] Non-Physician Phone Call To Patient/Provider Brief (5-10min) Non-Physician Phone Call To Patient/Provider Brief (5-10min) [id number] 2013 KEN CONWAY [facility] Non-Physician Phone Call To Patient/Provider Brief (5-10min) Non-Physician Phone Call To Patient/Provider Brief (5-10min) [id number] 2013 KEN CONWAY Non-Physician Phone Call To Patient/Provider Brief (5-10min) Non-Physician Phone Call To Patient/Provider Brief (5-10min) [id number] 2013 KEN CONWAY Non-Physician Phone Call To Pt/Provider Lengthy (21-30 min) Non-Physician Phone Call To Pt/Provider Lengthy (21-30 min) 99968 2013 CHELY PACE [facility] Determination Of Refractive State Determination Of Refractive State [id number] 2012 GUZMAN FRASER [facility] Ophthalmological Prior Patient Start Comprehensive Care Ophthalmological Prior Patient Start Comprehensive Care [id number] 2012 GUZMAN FRASER [facility] Non-Physician Phone Call To Pt/Provider Intermed (11-20 min) Non-Physician Phone Call To Pt/Provider Intermed (11-20 min) [id number] 2012 FILEMON JORGE [facility] Non-Physician Phone Call To Pt/Provider Intermed (11-20 min) Non-Physician Phone Call To Pt/Provider Intermed (11-20 min) [id number] 2011 CHELY PACE [employer] Fitting Bifocals (Not For Aphakia) [employer] Fitting Bifocals (Not For Aphakia) [id number] 2010 HUDSON ATWOOD Determination Of Refractive State Determination Of Refractive State [id number] 2010 HUDSON ATWOOD Fundus Photography Fundus Photography 85561 2010 HUDSON ATWOOD Visual Nina Test Intermediate Examination Visual Nina Test Intermediate Examination 71590 2010 HUDSON ATWOOD Ophthalmological Prior Patient Start Comprehensive Care Ophthalmological Prior Patient Start Comprehensive Care [id number] 2010 HUDSON ATWOOD [facility] Non-Physician Phone Call To Patient/Provider Brief (5-10min) Non-Physician Phone Call To Patient/Provider Brief (5-10min) 27847 2010 MJ RENDON Telephone calls by a registered nurse to a disease management program member for monitoring purposes; per month 2010 MJ RENDON Non-Physician Phone Call To Patient/Provider Brief (5-10min) Non-Physician Phone Call To Patient/Provider Brief (5-10min) [id number] 2010 MJ RENDON Telephone calls by a registered nurse to a disease management program member for monitoring purposes; per month 2010 MJ RENDON Non-Physician Phone Call To Pt/Provider Intermed (11-20 min) Non-Physician Phone Call To Pt/Provider Intermed (11-20 min) [id number] 2009 AZEB GRACIA [facility] Patient Counseling Medical Management Individual Patient Patient Counseling Medical Management Individual Patient [id number] 2009 MJ RENDON Patient Counseling Medical Management Individual Patient Patient Counseling Medical Management Individual Patient [id number] 2009 MJ RENDON Non-Physician Phone Call To Patient/Provider Brief (5-10min) Non-Physician Phone Call To Patient/Provider Brief (5-10min) 93514 2009 AZEB GRACIA [facility] Non-Physician Phone Call To Patient/Provider Brief (5-10min) Non-Physician Phone Call To Patient/Provider Brief (5-10min) 89006 2009 AZEB GRACIA Diabetic indicator; retinal eye exam, dilated, bilateral 2009 NIKO FRASER Visual Nina Test Intermediate Examination Visual Nina Test Intermediate Examination 97476 2009 NIKO FRASER [employer] Fitting Bifocals (Not For Aphakia) [employer] Fitting Bifocals (Not For Aphakia) 19642 2009 NIKO FRASER Determination Of Refractive State Determination Of Refractive State 27766 2009 NIKO FRASER Ophthalmological New Patient Start Comprehensive Care Ophthalmological New Patient Start Comprehensive Care 26834 2009 NIKO FRASER Physical Medicine Physical Therapy Re-Evaluation Physical Medicine Physical Therapy Re-Evaluation 81734 2008 MARIA E HARPER Modalities Ultrasound Modalities Ultrasound 48431 2008 MC MOLINA Modalities Ultrasound Modalities Ultrasound 85262 2008 JUAN MCNEIL Modalities Ultrasound Modalities Ultrasound 38281 2008 MC MOLINA Modalities Ultrasound Modalities Ultrasound 15818 2008 ARELY CESAR Modalities Ultrasound Modalities Ultrasound 12882 2008 MC MOLINA Physical Medicine Physical Therapy Re-Evaluation Physical Medicine Physical Therapy Re-Evaluation 95389 2008 MARIA E HARPER Modalities Heat Hot Packs Modalities Heat Hot Packs 67057 2008 MC MOLINA Modalities Traction Modalities Traction 67151 2008 MC MOLINA Modalities Traction Modalities Traction 06627 2008 JUAN MNCEIL Modalities Heat Hot Packs Modalities Heat Hot Packs 46927 2008 JUAN MCNEIL Modalities Traction Modalities Traction 84778 2008 MC MOLINA Modalities Heat Hot Packs Modalities Heat Hot Packs 64807 2008 MC MOLINA Modalities Traction Modalities Traction 61605 2008 MC MOLINA Modalities Heat Hot Packs Modalities Heat Hot Packs 01781 2008 MC MOLINA Modalities Traction Modalities Traction 87464 2008 JUAN MCNEIL Modalities Heat Hot Packs Modalities Heat Hot Packs 61188 2008 JUAN MCNEIL DoD Modalities Heat Hot Packs Modalities Heat Hot Packs 84422 2008 MC MOLINA Modalities Traction Modalities Traction 94743 2008 MC MOLINA Physical Therapy: ___ Se ion Segments, 15 Minutes Each Physical Therapy: ___ Session Segments, 15 Minutes Each [id number] 2008 MARIA E HARPER Physical Medicine Physical Therapy Evaluation Physical Medicine Physical Therapy Evaluation 35320 2008 MARIA E HARPER Medical Nutrition Therapy Group (2 or More Individual(s)) Medical Nutrition Therapy Group (2 or More Individual(s)) 29608 2007 TONA LOVING [facility] Dermatological Surgery Cryotherapy Dermatological Surgery Cryotherapy 05017 2006 GALO ANSARI cryotherapy x 4 on forehead w/ 2 freeze thaw cycles DoD Destruction Of Benign Lesion By Cryosurgery 2005 ANISA PACE DoD Destruction Of Benign Lesion By Any Method One Lesion 2005 ANISA PACE DoD Destruction Of Benign Lesion By Cryosurgery 2005 TEE BYRNE DoD Destruct Of Benign Lesion By Any Method Second Through 14 2005 TEE BYRNE DoD Destruction Of Benign Lesion By Cryosurgery 2004 TEE BYRNE DoD Destruct Of Benign Lesion By Any Method Second Through 14 2004 TEE BYRNE [facility] AUGMENTATION RHINOPLASTY 1992 [facility] APPLICATION OF ORTHODONTIC APPLIANCE 1992 [facility] OTHER EXCISION OF MOUTH 1992 [facility] EXCISION OF OTHER BONE FOR GRAFT, EXCEPT FACIAL BONES 1992 [facility] BONE GRAFT OF OTHER BONE, EXCEPT FACIAL BONES 1992 [facility] CLOSURE OF NASAL FISTULA 1992 [facility] TOTAL OSTEOPLASTY (OSTEOTOMY) OF MAXILLA 1992 [facility] MYRINGOPLASTY 1995 DoD QUALIFIED NONPHYSICIAN HEALTH DRAWING CHECKER ONLINE DIGITAL ASSESSMENT AND MANAGEMENT, FOR AN ESTABLISHED PATIENT, FOR UP TO 7 DAYS, CUMULATIVE TIME DURING THE 7 DAYS; 5-10 MINUTES 2019 [facility] TELE ASSESS & MGT SRV PROV QUAL [...] W/IN THE PREV 7 DAYS,USE THE INTERNET/SIMILAR [employer] COMM NETWORK 2018 DoD TELE ASSESS & MGT SRV PROV QUAL NONPHYS HLTH CARE PRO TO EST PAT,PARENT,GUARD NOT ORIG REL ASSESS & MGT SRV PROV W/IN PREV 7 DAYS NOR LEAD ASSESS & MGT SRV/PX W/IN NXT 24 HR/SOON APT;5-10 MIN MED DIS 2017 DoD DISEASE MANAGEMENT PROGRAM, FOLLOW-UP/REASSESS MENT 2017 DoD ONLINE ASSESS &MANAG SERV PROVIDE,A QUAL NONPHYS HCP TO AN ESTABLISHED PAT/GUARDIAN,NOT ORIGINAT FRM RELAT ASSESS &MANAG SERV PROVIDE W/IN THE PREV 7 DAYS,USE THE [employer]/SIMILAR [employer] NETWORK 2017 DoD TELE ASSESS & MGT [...] MANAGEMENT SERVICE(S) PROVIDED BY A PHARMACIST, INDIVIDUAL, [id number] WITH PATIENT, WITH ASSESSMENT AND INTERVENTION IF [...] MANAGEMENT SERVICE(S) PROVIDED BY A PHARMACIST, INDIVIDUAL, [id number] WITH PATIENT, WITH ASSESSMENT AND INTERVENTION IF [...] EDUCATION &TRAINING, PATIENT SELF-MGT QUALIFIED, NONPHYSICIAN HEALTH DRAWING CHECKER USING STDIZED CURRICULUM, [id number] W THE PATIENT (COULD INCL CAREGIVER/FAMILY) EA 30 MIN; INDIVIDUAL PATIENT 2009 DoD EDUCATION &TRAINING, PATIENT SELF-MGT QUALIFIED, NONPHYSICIAN HEALTH DRAWING CHECKER USING STDIZED CURRICULUM, [id number] W THE PATIENT (COULD INCL CAREGIVER/FAMILY) EA [...] ENDURANCE, RANGE OF MOTION AND FLEXIBILITY 2002 [facility] APPLICATION OF A MODALITY TO 1 OR MORE AREAS; ULTRASOUND, EACH 15 MINUTES 2002 [facility] APPLICATION OF A MODALITY TO 1 OR MORE AREAS; ULTRASOUND, EACH 15 MINUTES 2002 [facility] THERAPEUTIC PROCEDURE, 1 OR MORE AREAS, EACH 15 MINUTES; THERAPEUTIC EXERCISES TO DEVELOP STRENGTH AND ENDURANCE, RANGE OF MOTION AND FLEXIBILITY 2002 [facility] NONINVASIVE EAR OR PULSE OXIMETRY FOR OXYGEN SATURATION; SINGLE DETERMINATION 2001 [facility] Social History Combined list of available smoking, tobacco, and other social history from Department of Defense and Veterans Affairs facilities. Social History Type Response Date Comment Sour e Tobacco smoking status NHIS VA-TOBACCO FORMER USER 02/20/2024 [facility] History of tobacco use VA-TOBACCO QUIT 5 TO < 15 YRS 02/20/2024 [facility] History of tobacco use VA-TOBACCO QUIT 1 5 YRS OR MORE 08/14/2018 [facility] History of tobacco use QUIT TOBACCO >7 Y EARS AGO 01/10/2017 [facility] This section is an empty social [...] Plan No data available for this section 01/02/2025 Ambulatory Pharmacy Plan of Care List of future care activities from Department of Veterans Affairs facilities. Additional future care activities may be listed in the Assessment and Plan section. Date/Time Care Activity Care Activity Detail Facili ty 03/17/2025 AMBULATORY - MEDICINE AMBULATORY - MEDICI [facility] Functional Status Combined list of recent functional and cognitive assessments recorded at Department of Defense and Veterans Affairs (VA).VA Functional [place] Measurement (FIM) Scale: 1 = Total Assistance (Subject = 0% +), 2 = Maximal Assistance (Subject = 25% +), 3 = Moderate Assistance (Subject = 50% +), 4 = Minimal Assistance (Subject = 75% +), 5 = Supervision, 6 = Modified [place] (Device), 7 = Complete [place] (Timely, Safely). Assessment Date/Time Source Assessment Type Assessment Skill Assessment Score Assessment Details No data available for this section
--- OUTSIDE RECORDS SUMMARY | 2025-01-02 08:00 | XMS_ITS | Encounter Summary ---
Author Organization [facility] Address [address] [place] [address] Phone Care Team Providers Care Wind Technician Name Role Phone Lora Bajwa MD Unavailable [phone] Amanda Villa DO Primary Care Provider [phone] Bhargavi Tena MD Primary Care Provider Encounter Details Date Type Department Care Team (Late st Contact Info) Description 11/16/2020 Orders Only [facility] Scanning, Provider Social History Tobacco Use Types Packs/Day Years Used Date Smoking Tobacco: Former Cigarettes Q uit: 12/19/1993 Smokeless Tobacco: Never Sex and Gender Information Value Date Recorded Sex Assigned at Not on file Legal 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
--- OUTSIDE RECORDS SUMMARY | 2025-01-02 08:00 | XMS_ITS | Encounter Summary ---
Author Organization [facility] Address [address] [place] [address] Phone Care Team Providers Care Loader Magazine Grinder Name Role Phone Lora Bajwa MD Unavailable [phone] Bhargavi Tena MD Primary Care Provider Encounter Details Date Type Department Care Team (Late st Contact Info) Description 11/16/2021 Orders Only [facility] Scanning, Provider Social History Tobacco Use Types Packs/Day Years Used Date Smoking Tobacco: Former Cigarettes Q uit: 12/19/1993 Smokeless Tobacco: Never Sex and Gender Information Value Date Recorded Sex Assigned at Not on file 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 [place] [address] Referring Physician Family Practice 11/20/18 documented as of this encounter
== END 2025-01-02 07:54 | disposition home or self-care (01) ==
PROVIDERS: PCP Family Medicine; Visit Provider Nurse Practitioner Adult Health
DX: S32.040A Wedge compression fracture of fourth lumbar vertebra, initial encounter for closed fracture (principal); X58.XXXA Exposure to other specified factors, initial encounter; M47.816 Spondylosis without myelopathy or radiculopathy, lumbar region
CPT/HCPCS: 72100

== ENCOUNTER 2025-01-17 14:16 | Emergency (ER) | payer MEDICARE, OTHER, SELFPAY ==
[2025-01-17 14:24] VITALS: BP 135/90; PULSE 89; RESP 16; TEMP 36.6; O2SAT 97
--- NOTE | 2025-01-17 14:45 | ED_ITS ---
HPI - Wound/Laceration General Chief Complaint: Wound/Laceration Stated Complaint: Bee Sting Time Seen by Provider: 01/17/25 14:38 Source: patient, family () and RN notes reviewed Mode of arrival: ambulatory Limitations: no limitations History of Present Illness HPI narrative: Patient presents today complaining of to insect stings to the left posterior back that were sustained yesterday, possibly wasps or hornets. He has tried topical hydrocortisone without improvement. Denies pain, but does report itching. Patient has rheumatoid arthritis and is on methotrexate, Plaquenil, and infusion. Related Data Home Medications ?Medication ?Instructions ?Recorded ?Confirmed ?Last Taken ?Type folic acid 1 mg tablet 1 mg PO DAILY 04/22/19 01/17/25 06/04/23 History hydroxychloroquine 200 mg tablet 200 mg PO BID 04/22/19 01/17/25 06/04/23 History (Plaquenil) methotrexate sodium 2.5 mg tablet 2.5 mg PO WEEKLY 04/22/19 01/17/25 05/16/23 History golimumab 12.5 mg/mL intravenous 12.5 mg IV Q2M 02/07/23 01/17/25 Unknown History solution (Simponi ARIA) aspirin 81 mg tablet,delayed mg 01/17/25 Unknown History release omeprazole 20 mg capsule,delayed mg 01/17/25 Unknown History release Allergies Allergy/AdvReac Type Severity Reaction Status Date / Time No Known Allergies Allergy Verified 01/17/25 14:20 [facility] Past Medical History Medical History Osteopenia Kidney stone on right side History of diverticulitis of colon Diverticulitis of colon with perforation January 2024 Acute diverticulitis Orthopedic aftercare Partial thickness tear of left rotator cuff Left shoulder pain Left arm pain Acute myringitis, right ear LPRD (laryngopharyngeal reflux disease) PND (post-nasal drip) COVID-19 virus infection Dysphagia Wheezing Anxiety Sacro-iliac pain Hearing loss of both ears Wears hearing aid Cleft palate Hernia x3 DVT prophylaxis Diet-controlled diabetes mellitus Immunocompromised patient Rheumatoid arthritis On hydroxychloroquine, methotrexate, and leflunomide. Failure of outpatient treatment Community acquired pneumonia Pneumonia HTN (hypertension) HLD (hyperlipidemia) Surgical History Surgical History History of repair of left rotator cuff (~06/05/23) w/Subacromial Decompression Status post laser lithotripsy of ureteral calculus History of repair of congenital cleft palate History of ear surgery History of hernia repair X3. Family History Family History Mother Dementia Anxiety Hypercholesteremia Hypertension Father Heart attack Hypercholesteremia Hypertension Lung cancer Sibling Kidney disease Social History Social History Social History: The patient is and lives with his in [place]. 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 He designates his , Toyin, as his surrogate decision maker and he wishes to be a full code. He has a 15 pack year smoking history and quit 1993. He denies alcohol and drug use. Years smoked: 17 Smoking status: Former smoker Tobacco type: cigarettes Second hand tobacco smoke exposure: No Smoking end date: 06/18/93 Alcohol intake: never Substance use: never Substance use type: does not use Do You Feel Safe in your Home?: Yes Lack of Transportation: No Lack of Food: Never True Current Housing: I Have Housing Concerned About Future Housing: No Difficulty Paying Gas/Electric Bills: No Difficulty Paying for Meds: No Currently Unemployed: No Education: Bachelor's Degree Difficulty w/ Childcare or Family Care: No Living arrangements: with family Occupation/Education: retired Gender identity (if verbalized by the patient): Male Sexual Orientation (if Verbalized by the Patient): Straight or Heterosexual Spiritual care concerns: No Comments At time of signature, I have reviewed and agree with nursing past medical, surgical, social and family history unless otherwise noted. Please see nursing chart for further information. There is no relevant family history pertinent to the presenting complaint Exam Narrative: GENERAL: Well-appearing, well-nourished, and in no acute distress. HEAD: Normocephalic, atraumatic. EYES: EOMI. No redness or drainage. Conjunctivae normal. ENT: Mucous membranes pink and moist.. NECK: Normal AROM. CHEST: No respiratory distress. EXTREMITIES: Normal range of motion. No edema. SKIN: Warm, dry, no rash. Capillary refill normal. Normal skin turgor. To insect stings to the left low back with surrounding erythema measuring 4 x 7 cm and 4 x 4 cm respectively. Each have some induration and 1 puncture wound in the center. Nontender to palpation. no fluctuance noted. NEURO: No focal deficits. Alert and oriented x3. Gait steady. PSYCH: Normal affect. No signs of depression or anxiety. Course Course Level of Care: Express Care Visit Vital Signs Vital signs: Vital Signs Temperature 98 F 01/17/25 14:24 Pulse Rate 89 01/17/25 14:24 Respiratory Rate 16 01/17/25 14:24 Blood Pressure 135/90 01/17/25 14:24 Pulse Oximetry 97 01/17/25 14:24 Temperature 98 F 01/17/25 14:24 Pulse Rate 89 01/17/25 14:24 Respiratory Rate 16 01/17/25 14:24 Blood Pressure 135/90 01/17/25 14:24 Pulse Oximetry 97 01/17/25 14:24 Reviewed MDM - Wound/Laceration MDM Narrative Medical decision making narrative: 69-year-old male patient with a history of rheumatoid arthritis on methotrexate, Plaquenil, presents with to insect stings with itching to the left low back that occurred yesterday. Exam shows 2 puncture wounds with surrounding erythema and induration. Nontender. Prescription for triamcinolone sent to pharmacy for allergic reaction. As patient is immunosuppressed and is more susceptible to secondary bacterial infection, will also send prescription for Keflex. Patient and will monitor this area for worsening redness, development of pain and will start antibiotics if worsening symptoms occur. Vital signs stable. Differential Diagnosis Differential diagnosis: Likely abscess and other (Insect sting, allergic reaction) Critical Care Time Critical Care Time Critical Care Time: No Discharge Plan Discharge Clinical Impression: Allergic reaction to insect sting Patient Disposition: Home Condition: Stable Instructions: Antibiotic Form, Insect Bite or Sting (ED) Additional Instructions: Please use the triamcinolone as directed. If you feel that your symptoms are continuing to worsen, please start the cephalexin and take as prescribed. You may also try a cold pack to help with inflammation as well. Follow-up with your PCP with any additional concerns. Your blood pressure was elevated above 120/80 today at Urgent Care. This puts you above the threshold for follow up. Please schedule a followup visit with your personal physician as soon as possible, for further evaluation and treatment. Even blood pressure exceeding 120/80 may indicate pre-hypertension. Patient Language: Upper Sorbian Prescriptions: New triamcinolone acetonide 0.1 % cream 1 applic topical BID 7 Days Qty: 30 0RF cephalexin 500 mg capsule 500 mg PO Q6H 7 Days Qty: 28 0RF No Action aspirin 81 mg tablet,delayed release (DR/EC) omeprazole 20 mg capsule,delayed release(DR/EC) amlodipine 5 mg tablet See Rx Instructions .ROUTE .COMPLEX Qty: 90 1RF Dose Instruction: TAKE 1 TABLET BY MOUTH EVERY DAY AT BEDTIME Rx Instructions: TAKE 1 TABLET BY MOUTH EVERY DAY AT BEDTIME rosuvastatin 10 mg tablet 10 mg PO DAILY Qty: 90 1RF Simponi ARIA 12.5 mg/mL solution 12.5 mg IV Q2M Patient Comments: next due January 01 2024 methotrexate sodium 2.5 mg Tablet 2.5 mg PO WEEKLY Rx Instructions: pt takes TEN 2.5mg tablets on Wednesdays folic acid 1 mg tablet 1 mg PO DAILY hydroxychloroquine [Plaquenil] 200 mg Tablet 200 mg PO BID clonidine HCl 0.1 mg tablet 0.1 mg PO BID Qty: 180 1RF aspirin 81 mg capsule 81 mg PO DAILY Qty: 90 1RF ipratropium bromide 21 mcg (0.03 %) spray,non-aerosol 2 spray intranasal BID Qty: 30 0RF Rx Instructions: administer into each nostril sildenafil [Viagra] 100 mg tablet 100 mg PO DAILY PRN (Reason: sexual activity) Qty: 30 0RF Rx Instructions: administer 30 minutes to 4 hours before activity irbesartan-hydrochlorothiazide 300-12.5 mg tablet 1 tablet PO DAILY Qty: 90 1RF omeprazole 40 mg capsule,delayed release(DR/EC) 40 mg PO DAILY Qty: 90 1RF Follow-up/Referrals: David Henson MD [Primary Care Provider] - Time of Disposition: 14:53
== END 2025-01-17 14:56 | disposition home or self-care (01) ==
PROVIDERS: Emergency Provider Nurse Practitioner; PCP Family Medicine
DX: T63.481A Toxic effect of venom of other arthropod, accidental (unintentional), initial encounter (principal); M06.9 Rheumatoid arthritis, unspecified; K21.9 Gastro-esophageal reflux disease without esophagitis; E11.9 Type 2 diabetes mellitus without complications; I10 Essential (primary) hypertension; E78.5 Hyperlipidemia, unspecified; Z79.82 Long term (current) use of aspirin; Z87.891 Personal history of nicotine dependence; M85.80 Other specified disorders of bone density and structure, unspecified site
CPT/HCPCS: 99213; G0463

== ENCOUNTER 2025-02-06 08:46 | Outpatient (CLI) | payer MEDICARE, OTHER, SELFPAY ==
--- OUTSIDE RECORDS SUMMARY | 2025-02-05 08:40 | XMS_ITS | Encounter Summary ---
Author Organization [facility] Address [address] [place] [address] Phone Care Team Providers Care Log Processor Operator Name Role Phone Lora Bajwa MD Unavailable [phone] Bhargavi Tena MD Primary Care Provider Reason for Visit * Reason Comments Ear Problem Pt c/o right ear dra rose. Encounter Details Date Type Department Care Team (Late st Contact Info) Description 02/05/2025 8:40 AM CDT Office Visit [facility] Medicine Otolaryngology [address] [facility] [address] [place] [address] Samira Bruce, COMPLAINT SUPERVISOR [address] [facility] OTOLARYNGOLOGY, [facility] [address] [place] [address] Chronic atticoantral suppurative otitis media, right ear (Primary Dx); Mixed hearing loss, bilateral; Acute myringitis of ear, right Social History Tobacco Use Types Packs/Day Years Used Date Smoking Tobacco: Former Cigarettes Q uit: 12/19/1993 Passive Smoke Exposure: Past Smokeless Tobacco: Never Sex and Gender Information Value Date Recorded Sex Assigned at Not on file 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 Referred by: Self Referral Interval: The patient returns for follow-up evaluation. The patient is here today for follow-up. Patient reports otorrhea out of the right ear for the past several weeks. Patient reports it is yellow in color.Hearing has declined. Denies any otalgia. History of mastoid surgery. Previous History: The patient returns for follow-up evaluation. The patient is here today for follow-up regarding possible right ear infection. Patient reports having decreased hearing following a bout of COVID 2 months ago. He denies any otorrhea. There has been a change in hearing since onset. Previous History: This is a 67 y.o. male who presents today for evaluation of his hearing. Patient is seen in follow-up longstanding history of chronic otitis media having gone prior otologic surgery. Denies any recent otorrhea, although he does develop occasional difficulty with moisture in that ear canal which resolves with otic drops. Is continued decreased hearing bilaterally, however gains reasonably good benefit with his current hearing aid amplification Past Medical History: Diagnosis Date Basal cell carcinoma BPH (benign prostatic hyperplasia) Diabetes mellitus (HCC) Type II Enlarged prostate without lower urinary tract symptoms (luts) BPH (benign prostatic hyperplasia) - (Added by TW Conv) Foot pain, bilateral Top of both feet Hearing loss History of diabetes mellitus, type II HLD (hyperlipidemia) Hypertension Inflammatory arthritis Obesity Personal history of other diseases of the circulatory system History of hypertension - (Added by TW Conv) Personal history of other diseases of the nervous system and sense organs History of hearing loss - (Added by TW Conv) Personal history of other diseases of the nervous system and sense organs History of sciatica - (Added by TW Conv) Personal history of other endocrine, nutritional and metabolic disease History of diabetes mellitus - (Added by TW Conv) Personal history of other endocrine, nutritional and metabolic disease History of hyperlipidemia - (Added by TW Conv) Plantar fasciitis 2018 Pneumonia 04/22/2019 Sciatica Tinnitus Wheeze Past Surgical History: Procedure Laterality Date COLONOSCOPY January 2024 INGUINAL HERNIA REPAIR Inguinal Hernia Repair - (Added by TW Conv) REFRACTIVE SURGERY ROOT CANAL 01/2019 ROTATOR CUFF REPAIR Left 06/05/2023 Current Outpatient Medications: cephalexin (KEFLEX) 500 mg capsule, TAKE 1 CAPSULE BY MOUTH EVERY 6 HOURS FOR 7 DAYS, Disp: , Rfl: tiZANidine (ZANAFLEX) 2 mg tablet, Take 1 tablet (2 mg total) by mouth 3 (three) times a day as needed, Disp: , Rfl: traMADoL (ULTRAM) 50 mg tablet, Take 1 tablet (50 mg total) by mouth 2 (two) times a day as needed for pain, Disp: , Rfl: traMADoL (ULTRAM) 50 mg tablet, Take 1 tablet (50 mg total) by mouth 2 (two) times a day as needed for pain, Disp: , Rfl: triamcinolone (KENALOG) 0.1 % cream, APPLY TOPICALLY TO THE AFFECTED AREA TWICE DAILY FOR 7 DAYS, Disp: , Rfl: amLODIPine (NORVASC) 5 mg tablet, Take 1 tablet (5 mg total) by mouth nightly at bedtime, Disp: , Rfl: aspirin 81 mg tablet, Take 1 tablet (81 mg total) by mouth daily, Disp: , Rfl: cloNIDine (CATAPRES) 0.1 mg tablet, 1 tablet (0.1 mg total) 2 (two) times a day, Disp: , Rfl: econazole 1 % cream, APPLY TO FEET TWICE DAILY, Disp: , Rfl: FLUoxetine (PROzac) 20 mg capsule, Take 1 capsule (20 mg total) by mouth daily, Disp: , Rfl: folic acid (FOLVITE) 1 mg tablet, Take 1 tablet (1 mg total) by mouth daily, Disp: 90 tablet, Rfl: 3 GOLIMUMAB IV, ions golimumab (SIMPONI ARIA) 200 mg in sodium chloride 0.9% 100 mL IVPB Every 8 weeks Week of 04/30/2022 200 mg, intravenous, Administer over 30 Minutes, Once, Starting at treatment start time Maintenance Dose Last released: Sun03/07/2022, Disp: , Rfl: hydroxychloroquine (PLAQUENIL) 200 mg tablet, Take 1 tablet (200 mg total) by mouth 2 (two) times aday, Disp: 180 tablet, Rfl: 3 irbesartan-hydroCHLOROthiazide (AVALIDE) 300-12.5 mg per tablet, Take 1 tablet by mouth daily, Disp: , Rfl: methotrexate 2.5 mg tablet, Take 10 tablets (25 mg total) by mouth once a week, Disp: 120 tablet, Rfl: 1 omeprazole (PriLOSEC) 40 mg capsule, , Disp: , Rfl: rosuvastatin (CRESTOR) 10 mg tablet, Take 1 tablet (10 mg total) by mouth daily, Disp: , Rfl: sildenafiL (VIAGRA) 100 mg tablet, Take 1 tablet (100 mg total) by mouth daily as needed for erectile dysfunction, Disp: , Rfl: Review of patient's allergies indicates: No Known Allergies Social History and Family History: reviewed in the EMR New patients fill out a 10-system review of systems survey that gets reviewed at their initial visit. Pertinent positives have been incorporated into the HPI. Physical Exam Vital Signs: There were no vitals taken for this visit. GENERAL: Pleasant male, sitting up in NAD, normal appearance and voice. RESPIRATION: Breathing comfortably, no stridor. CV: No clubbing/cyanosis/edema in hands, RRR. HEAD AND FACE: General Inspection reveals no lesions or masses. HEENT: EARS:Examination of the external ears was normal using visual inspection. If the otoscope was inadequate, the otology microscope was used for improved visualization for diagnostic purposes. Otoscopicor microscopic visualization was used for clear magnified visualization and three-dimensional imaging of the ear for detection of any observable pathology or pathologic anatomic configuration and charaterization of same. Right External auditory canal: Drainage suctioned from canal. Tympanic Membrane: Postsurgical with cartilage graft, anterior myringitis Middle ear: normal Left: External auditory canal: normal Tympanic Membrane: normal Middle ear: normal EYES: EOM Intact, sclera anicteric, no conjunctival injection. NOSE: External inspection of nose reveals no lesions, no masses. Inspection of nasal mucosa, septum, and turbinates is normal to anterior rhinoscopy. ORAL CAVITY/OROPHARYNX: Lips and gums are normal. Oropharynx, including the mucosa of oral cavity, hard and soft palates, tongue, and posterior pharyngeal wall showed normal symmetry without lesion and normal hydration of mucosal surfaces. NECK: Normal symmetry and overall appearance as well as tracheal position; no masses. Thyroid glandshows no tenderness or masses. NEURO: A&Ox3, Cranial nerves 2-12 intact and symmetric. Normal affect. GAIT: Normal. ASSESSMENT & PLAN: Myringitis present on the right today. We discussed a tube would not be beneficial based on exam. He is placed on Ciprodex drops. If he has any continued issues may consider adding antibiotics and tohis regimen. He was advised to reach out on Sunday to let me know how he is doing. Samira Bruce, LOULOU-, [facility] Medicine Otolaryngology [address] [facility] [place] [address] There may be grammatical errors in this note due to use of voice recognition software. documented in this encounter Plan of Treatment Not on file documented as of this encounter Visit Diagnoses Diagnosis Chronic atticoantral suppurative otitis media, right ear- Primary Mixed hearing loss, bilateral Acute myringitis of ear, right documented in this encounter Historical Medications * This list may reflect changes made after this encounter. triamcinolone (KENALOG) 0.1 % cream APPLY TOPICALLY TO THE AFFECTED AREA TWICE DAILY FOR 7 DAYS 01/17/2025 traMADoL (ULTRAM) 50 mg tablet Take 1 tablet (50 mg total) by mouth 2 (two) times a day as needed for pain 11/20/2024 traMADoL (ULTRAM) 50 mg tablet Take 1 tablet (50 mg total) by mouth 2 (two) times a day as needed for pain 12/02/2024 tiZANidine (ZANAFLEX) 2 mg tablet Take 1 tablet (2 mg total) by mouth 3 (three) times a day as needed 11/20/2024 omeprazole (PriLOSEC) 40 mg capsule cephalexin (KEFLEX) 500 mg capsule TAKE 1 CAPSULE BY MOUTH EVERY 6 HOURS FOR 7 DAYS 01/17/2025 added in this encounter Care Teams Log Processor Operator Relationship Specialty Start Date End Date Bhargavi Tena MD [address] [facility] [address] [place] [address] PCP - General Family Medicine 11/30/20 Lora Bajwa MD [address] [place] [address] Referring Physician Family Practice 11/20/18 documented as of this encounter
--- OUTSIDE RECORDS SUMMARY | 2025-02-05 10:04 | XMS_ITS | Encounter Summary ---
Author Name [facility] Organization [facility] Address [address] [place] [address] Care Team Providers Care Crm Dynamics Developer Name Role Phone HUMA LIRIANO Primary Care [...] PART A May 18, 2020 PART A [id number] [facility] KRAIGEstella RENDON PATIENT MEDICARE (WNR) MEDICARE (M) PART B May 18, 2020 PART B [id number] Estella CORNELL PATIENT -FO R-LIFE [facility] RE FOR LIFE WNR May 18, 2020 FOR LIFE [id number] [phone] KRAIGEstella PATIENT Selected Encounter This section includes the information on record at [place] for the Encounter. Date/Time Encounter Type Encounter Description Reason Pro vider Source Feb 05, 2025 03:04 PM Outpatient Encounter TELEPHONE/SURGERY I[facility] Encounter Template Text not used by [place] Plan of Treatment: Future Appointments (+ 6 months) and Future Tests (+/- 45 days) The Plan of Treatment section includes future care activities for the patient from all [place] treatmentfacilities. This section includes future appointments and future orders which are active, pending or scheduled. Future Appointments This section includes appointments that were scheduled to occur 6 months from the date of the Encounter, up to a maximum of 20 appointments. The data comes from all [place] treatment facilities. Appointment Date/Time Appointment Type Appointme nt Facility Name Mar 17, 2025 01:00 PM AM[facility]ATORY - MEDICINE [facility]
--- NOTE | ~2025-02-06 | XR_ITS ---
EXAMINATION: XR lumbar spine 2-3V DATE: 02/06/2025 09:12 INDICATION: Wedge compression fracture TECHNIQUE: 3 images of the lumbar spine were obtained. COMPARISON: 11/20/2024 FINDINGS: Stable mild compression fracture of the L4 vertebral body. No new compression fracture in the lumbar spine. Alignment of the lumbar spine is within normal limits. Grossly stable degenerative change throughout the lumbar spine as compared to the study from 11/20/2024. IMPRESSION: 1. Stable mild compression fracture of L4 vertebral body. 2. No new compression fracture in the lumbar spine. 3. Grossly stable degenerative change throughout the lumbar spine as compared to the study from 11/20/2024. If symptoms persist or worsen, consider an MRI of the lumbar spine for further assessment. Reviewed, dictated and finalized at location Q. IMPRESSION: 1. Stable mild compression fracture of L4 vertebral body. 2. No new compression fracture in the lumbar spine. 3. Grossly stable degenerative change throughout the lumbar spine as compared t o the study from 11/20/2024. If symptoms persist or worsen, consider an MRI of the lumbar spine for further assessment.
--- OUTSIDE RECORDS SUMMARY | 2025-02-06 08:53 | XMS_ITS | Continuity of Care Document ---
Author Name [facility] Organization [facility] Care Team Providers Care Food And Beverage Intern Name Role Phone [facility] Unavailable Unavailable Problems Combined list of problems from Department of Defense and Veterans Affairs facilities. It does not include entries that were removed or entered in error. Problem Status Onset Date Problem Type Date of Resolution Comments Source Body mass index 30+ - obesity Active Condition [facility] Diabetes Mellitus Type 2 ([facility] [id number]) Active Condition [facility] Hyperlipidemia Active Condition [facility] Hyperlipidemia ([facility] [id number]) Active Condition [facility] Hypertension Active Condition [facility] Inflammatory arthritis Active Condition [facility] Sensorineural hearing loss, bilateral Active Condition [facility] Type 1 diabetes mellitus without complication Inactive Condition 01/09/2018 [facility] HEADACHE SYNDROMES Active Condition [facility] Administrative Evaluation Services Inactive Condition [facility] CATARACT SENILE COMBINED FORMS Active Condition [facility] DERMATOCHALASIS BOTH EYES Active Condition [facility] ANISOMETROPIA Active Condition [facility] PLANTAR FASCIITIS Active Condition [facility] DERMATOPHYTOSIS Active Condition [facility] Outpatient Physician Consultation Active Condition [facility] DERMATOLOGY [...] medical exam w/o abnormal findings Active Diagnosis [facility] Diagnosis: ICD-10-CM H90.A31 Mix cndct/snrl hear loss,uni,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 Active Diagnosis [facility] Medications Combined list of outpatient [...] DAY ORAL ACTIVE BEAR FERNANDEZ [place] 2016 [facility] aspirin EC 81 mg tablet = [...] A DAY ORAL ACTIVE NNAMDI [place] 2017 [facility] CIPROFLOXAC IN HCL (CIPROFLOXA TORI HCL), 500MG, TABLET, ORAL, AUROBINDO PHARM, 100 ea. BOTTLE Active [id number] 2023 14 Pharmac y Data Transac [...] AT BEDTIME ORAL ACTIVE HUMA LIRIANO 2023 [facility] ECONAZOLE NITRATE 1% CREAM,TOP APPLY THIN FILM TO AFFECTED AREA(S) ONCE A DAY TOPICA L ACTIVE HUMA LIRIANO 2023 [facility] ESOMEPRAZOL E 20MG (BASE) CAP,EC TAKE 1 CAPSULE BY MOUTH EVERY MORNING BEFORE A MEAL ORAL ACTIVE NNAMDI [place] 2017 [facility] famotidine 10 mg tablet = 1 [...] EVERY MORNING ORAL ACTIVE HUMA LIRIANO 2023 [facility] folic acid 1 mg tablet See [...] DAY ORAL ACTIVE BEAR FERNANDEZ [place] 2016 [facility] GOLIMUMAB 100MG/ML INJ SMARTJECT INJECT 100MG/1M L UNDER THE SKIN ONE-TIME SUBCUT ANEOUS ACTIVE HUMA LIRIANO 2023 [facility] HYDROCHLORO THIAZIDE 12.5MG/IRBE SARTAN 300MG TAB TAKE ONE TABLET BY MOUTH ONCE A DAY ORAL ACTIVE HUMA LIRIANO 2023 [facility] hydrochloro thiazide-ir besartan 12.5 mg-300 mg [...] A DAY ORAL ACTIVE NNAMDI [place] 2017 [facility] ipratropium 21 mcg/inh nasal spray [30mL] [...] EVERY WEEK ORAL ACTIVE HUMA LIRIANO 2023 [facility] METRONIDAZO LE (metronidaz ole), 375 MG, CAPSULE, ORAL, ALEMBIC PHARMAC, 50 ea. BOTTLE Active [id number] 2023 14 Pharmac y Data Transac [...] EVERY EVENING ORAL ACTIVE HUMA LIRIANO 2023 [facility] sildenafil 100 mg tablet = 1 [...] Reported Comments Source NO OUTPUT FOR NCID [id number] Drug allergy (disorder) active 01/31/2008 [employer] [facility] ([facility]) Immunizations Combined list of available immunizations from the Department of Defense and Veterans Affairs facilities. Immunization Series Date Given Administered By Site Reaction Lot Number CVX Code Drug Brick Burner Head Status Comments Source PNEUMOCOCCAL CONJUGATE PCV20, POLYSACCHARID E [id number] CONJUGATE, ADJUVANT, PF 2023 [place] LEFT DELTO ID [id number] 216 complet ed [facility] TDAP 2023 [place] RIGHT DELTO ID [id number] 115 complet ed [facility] COVID-19 (MODERNA), MRNA, LNP-S, PF, 50 MCG/0.5 ML (AGES 12+ YEARS) 2022 312 complet ed HISTORICA L INFORMATI ON - FROM PATIENT'S WRITTEN RECORD, [facility] INFLUENZA, UNSPECIFIED FORMULATION 2022 88 complet ed HISTORICA L INFORMATI ON - FROM PATIENT'S WRITTEN RECORD, [facility] RSV, RECOMBINANT, PROTEIN SUBUNIT RSVPREF, ADJUVANT RECONSTITUTED , 0.5 ML, PF 2022 303 complet ed HISTORICA L INFORMATI ON - FROM PATIENT'S WRITTEN RECORD, [facility] N INFLUENZA, UNSPECIFIED FORMULATION 2022 88 complet ed Booster for Series, HISTORICA L INFORMATI ON - FROM PATIENT'S RECALL, [facility] RECOMBINANT 2 2022 187 complet ed HISTORICA L INFORMATI ON - FROM PATIENT'S WRITTEN RECORD, [facility] N ZOSTER RECOMBINANT 1 2021 187 complet ed HISTORICA L INFORMATI ON - FROM PATIENT'S WRITTEN RECORD, [facility] COVID-19 (MODERNA), MRNA, LNP-S, BIVALENT, PF, 50 MCG/0.5 ML OR 25MCG/0.25 ML DOSE 1 2021 229 complet ed HISTORICA L INFORMATI ON - FROM PATIENT'S WRITTEN RECORD, [facility] COVID-19 (MODERNA), MRNA, LNP-S, PF, 100 MCG/0.5ML DOSE OR 50 MCG/0.25ML DOSE 2021 207 complet ed HISTORICA L INFORMATI ON - FROM PATIENT'S WRITTEN RECORD, [facility] COVID-19, mRNA, LNP-S, PF, 100 mcg or 50 mcg dose 2021 RUDD, Moderna US[employer] (MOD) Not Given COVID-19, mRNA, LNP-S, PF, 100 mcg or 50 mcg dose DoD influenza, high-dose, quadrivalent 2020 SHUN, () Not Given influenza , high-dose , quadrival ent [facility] COVID-19 (MODERNA), MRNA, LNP-S, PF, 100 MCG/0.5ML DOSE OR 50 MCG/0.25ML DOSE 3 2020 207 complet ed HISTORICA L INFORMATI ON - FROM PATIENT'S WRITTEN RECORD, [facility] COVID-19, mRNA, LNP-S, PF, 100 mcg or 50 mcg dose 2020 RUDD, [employer] (MOD) Not Given COVID-19, mRNA, LNP-S, PF, 100 mcg or [address] [facility] COVID-19 (MODERNA), MRNA, LNP-S, PF, 100 MCG/0.5ML DOSE OR 50 MCG/0.25ML DOSE 2 2020 207 complet ed HISTORICA L INFORMATI ON - FROM PATIENT'S WRITTEN RECORD, [facility] COVID-19 (MODERNA), MRNA, LNP-S, PF, 100 MCG/0.5ML DOSE OR 50 MCG/0.25ML DOSE 1 2020 207 complet ed HISTORICA L INFORMATI ON - FROM PATIENT'S WRITTEN RECORD, [facility] N pneumococcal polysaccharid e, 23 valent 2019 zzLef t Arm [id number] [employer] Company Inc complet ed pneumococ trevor polysacch aride, 23 valent 05/18/20 Given Ambulat ory Pharmac y PNEUMOCOCCAL POLYSACCHARID E PPV23 2019 33 complet ed HISTORICA L INFORMATI ON - FROM PATIENT'S WRITTEN RECORD, [facility] N pneumococcal polysaccharid e vaccine, 23 valent 1 2019 Unknown, Provider [id number] Merck (MSD) complet ed pneumococ trevor [...] FREE 2018 150 complet ed 02, Partner: [facility]. Administe red by: RIMA WONG (FFZ=[phone]). Partner 7 Lot#: [id number] Mfr: GlaxoSmit hKline; Dosage: 0.5 [facility] Influenza, seasonal, injectable 1 2018 Unknown, Provider 141 Transcribed (TRS) complet ed Influenza , seasonal, injectabl e DoD influenza, injectable, quadrivalent- pf 2017 zzLef t Arm [id number] Seq[employer] complet ed influenza , injectabl e, quadrival ent-pf 04/11/18 Given Ambulat ory Pharmac y Influenza, injectable, quadrivalent, preservative free 1 2017 Unknown, Provider [id number] 150 [employer] (SEQ) complet ed Influenza , injectabl e, quadrival ent, preservat ezio free DoD Influenza, inj, MDCK, quadrivalent- pf 2016 zzLef t Arm [id number] 171 [employer] complet ed Influenza , inj, MDCK, quadrival ent-pf 05/08/17 Given Ambulat ory Pharmac y Influenza, injectable, Madin Hardy Canine Kidney, preservative free, quadrivalent 1 2016 Unknown, Provider [id number] 171 [employer] (SEQ) complet ed Influenza , injectabl e, Madin Judi Canine Kidney, preservat ezio free, quadrival ent DoD ZOSTER LIVE 2016 121 complet ed [facility] influenza, seasonal, injectable-pf 2015 zzLef t Arm [id number] 140 Se[employer] complet ed influenza , seasonal, injectabl e-pf 03/13/16 Given Ambulat ory Pharmac y Influenza, seasonal, injectable, preservative free 1 2015 Unknown, Provider [id number] 140 [employer] (SEQ) complet ed Influenza , seasonal, injectabl e, preservat ezio free DoD NOVEL INFLUENZA-H1N 1-09 1 2014 127 complet ed HISTORICA L INFORMATI ON - FROM OTHER REGISTRY, [facility] N PNEUMOCOCCAL POLYSACCHARID E PPV23 1 2014 33 complet ed HISTORICA L INFORMATI ON - FROM OTHER REGISTRY, [facility] N pneumococcal polysaccharid e, 23 valent 2014 zzLef t Arm [id number] 33 Merck & Company Inc complet ed pneumococ trevor polysacch aride, 23 valent 03/15/15 Given Ambulat ory Pharmac y influenza, seasonal, injectable-pf 2014 zzLef t Arm [id number] 140 CSL Behring complet ed influenza , seasonal, injectabl e-pf 03/15/15 Given Ambulat ory Pharmac y PNEUMOCOCCAL POLYSACCHARID E PPV23 2014 33 complet ed [facility] N pneumococcal polysaccharid e vaccine, 23 valent 1 2014 Unknown, Provider [id number] Merck (MSD) complet ed pneumococ trevor polysacch aride vaccine, 23 valent DoD Influenza, seasonal, injectable, preservative free 1 2014 Unknown, Provider [id number] [employer] (CSL) complet ed Influenza , seasonal, [...] INFORMATI ON - FROM PATIENT'S WRITTEN RECORD, [facility] N tetanus toxoid, reduced diphtheria toxoid, and acellular pertu is vaccine, adsorbed 1 2013 Unknown, Provider 115 Transcribed (TRS) complet ed tetanus toxoid, reduced diphtheri a toxoid, and acellular pertussis vaccine, adsorbed DoD zoster vaccine live 2011 zzLef t Arm [id number] 121 Merck & Company Inc complet ed zoster vaccine live 05/24/12 Given Ambulat ory Pharmac y zoster vaccine, live 1 2011 Unknown, Provider [id number] 121 Merck (MSD) complet ed zoster vaccine, live DoD influenza, seasonal, injectable 2010 zzJune ht Arm [id number] 141 sanofi pasteur complet ed influenza , seasonal, injectabl e 03/17/11 Given Ambulat ory Pharmac y tetanus, diphtheria, acellular pertu is 2010 zzLef t Arm [id number] 115 [facility] complet ed tetanus, diphtheri a, acellular pertussis 03/17/11 Given Ambulat ory Pharmac y tetanus toxoid, reduced diphtheria toxoid, and acellular pertu is vaccine, adsorbed 1 2010 Unknown, Provider [id number] [place] [address] (SKB) complet ed tetanus toxoid, reduced diphtheri a toxoid, and acellular pertussis vaccine, adsorbed DoD Influenza, seasonal, injectable 3 2010 Unknown, Provider [id number] 141 Sanofi Pasteur (PMC) complet ed Influenza , seasonal, injectabl e DoD influenza virus vaccine, whole virus 1998 [id number] 16 [facility] complet ed influenza virus vaccine, whole virus 04/09/99 Given Ambulat ory Pharmac y influenza virus vaccine, whole virus 1 1998 Unknown, Provider [id number] 16 [facility] (CON) complet ed influenza virus vaccine, whole virus DoD influenza virus vaccine, whole virus [id number] [facility] complet ed influenza virus vaccine, whole virus 08/03/98 Given Ambulat ory Pharmac y influenza virus vaccine, whole virus 1 1998 Unknown, Provider [id number] 16 [facility] (CON) complet ed influenza virus vaccine, whole [...] Source SYSTOLIC BLOOD PRESSURE 138 02/20/2024 08:14:26 [facility] DIASTOLIC BLOOD PRESSURE 78 02/20/2024 08:14:26 [facility] PULSE OXIMETRY 96 02/20/2024 08:14:26 [facility] WEIGHT 263.8 02/20/2024 08:14:26 [facility] BMI 36 kg/m2 02/20/2024 08:14:26 [facility] PAIN 3 02/20/2024 08:14:26 [facility] HEIGHT 72 02/20/2024 08:14:26 [facility] TEMPERATURE 97.8 02/20/2024 08:14:26 [facility] PULSE 76 02/20/2024 08:14:26 [facility] RESPIRATION 20 02/20/2024 08:14:26 [facility] Encounters Combined list of: 1) Encounters from Department of Veterans Affairs facilities going backup to the last 18 months, not all VA inpatient encounters are included; 2) Encounters from the Department of [facility] facilities going backup to 280 months. Location Location Details Encounter Type Encounter Number Reason For Visit Attending Provider ADM Date DC Date Status Disposition Source [address] [place] [address] Travis B [facility] Practice Non-GME FHI2) OUTPATIENT [id number] scaly spot on ear TEE BYRNE 12/12 Released w/o Limitations [address] [place] [address] Travis B [facility])(F amily Practic e Non-GME FHI2) [address] [place] [address] Travis B [facility] Non-GME FHI2) OUTPATIENT [id number] persist ant cough TEE BYRNE 09/15 Released w/o Limitations [address] [place] [address] Travis B [facility])(F amily Practic e Non-GME FHI2) [address] [place] [address] Travis B [facility] Non-GME FHI2) OUTPATIENT [id number] routine physica l check up TEE BYRNE 10/05 Released w/o Limitations [address] [place] [address] Travis TODDB [facility])(F amily Practic e Non-GME FHI2) [address] [place] [address] Travis B [facility] Non-GME FHI2) OUTPATIENT [id number] Lt Eye - C/O a growth or spot? ANISA PACE 04/13 Released w/o Limitations [address] [place] [address] [employer] [facility])(F amily Practic e Non-GME FHI2) [address] [place] [address] [employer] [facility])([facility] lisbeth Practice Non-GME FHI2) OUTPATIENT [id number] stomach pain both sides WALLACE BEGUM 06/05 Released w/o Limitations [address] [place] [address] [employer] [facility])(F amily Practic e Non-GME FHI2) [address] [place] [address] [facility])([facility] Practice Non-GME FHI2) OUTPATIENT [id number] wants derm referal for skin lesions ' GALO ANSARI 01/15 Released w/o Limitations [address] [place] [address] Travis [facility])(F amily Practic e Non-GME FHI2) [address] [place] [address])([facility] Non-GME FHI2) OUTPATIENT [id number] adult physica l [phone]# GALO ANSARI 02/08 Released w/o Limitations [address] [place] [address] Travis [facility])(F amily Practic e Non-GME FHI2) [address] [place] [address] Travis [facility])([facility] Non-GME FHI2) OUTPATIENT [id number] fever, chills [phone] GALO ANSARI 08/06 Released w/o Limitations [address] [place] [address])(F amily Practic e Non-GME FHI2) [address] [place] [address])([facility]) OUTPATIENT [id number] impaire d fasting glucose [facility] 08/12 Released w/o Limitations [address] [place] [address] Travis [facility])(N utritio nal Medicin e) [address] [place] [address])([facility] Non-GME FHI2) OUTPATIENT [id number] [phone] lesions on face spreadi ng GALO ANSARI 10/22 Released w/o Limitations [address] [place] [address])(F amily Practic e Non-GME FHI2) [address] [place] [address])([facility]beth Practice Non-GME FHI2) TELE CONSULT [id number] Lab results -- MARY ELLEN Winston 01/[address] [place] [address] Travis [facility])(F amily Practic e Non-GME FHI2) [address] [place] [address] Travis [facility])([facility] Practice Non-GME FHI2) OUTPATIENT [id number] Eval back pain [phone] wk GALO ANSARI 07/21 Released w/o Limitations [address] [place] [address] Travis [facility])(F amily Practic e Non-GME FHI2) [employer] ([facility])(Phy sical Therapy) OUTPATIENT [id number] right arm pain MARIA E HARPER 08/04 Released w/o Limitations [employer] ([facility])(P hysical Therapy ) [employer] ([facility])(Sco tt [facility] Team 4) TELE CONSULT [id number] f/u labs and GALO Salazar 08/06 [employer] ([facility])(S cott [facility] Team 4) [employer] ([facility])(Phy sical Therapy) OUTPATIENT [id number] MC MOLINA 08/11 Released w/o Limitations [employer] ([facility])(P hysical Therapy ) [employer] ([facility])(Phy sical Therapy) OUTPATIENT [id number] JUAN MCNEIL 08/13 Released w/o Limitations [employer] ([facility])(P hysical Therapy ) [facility] [employer] ([facility])(Phy sical Therapy) OUTPATIENT [id number] MC MOLINA 08/18 Released w/o Limitations [employer] ([facility])(P hysical Therapy ) [employer] ([facility])(Phy sical Therapy) OUTPATIENT [id number] MC MOLINA 08/20 Released w/o Limitations [employer] ([facility])(P hysical Therapy ) [facility] [employer] ([facility])(Phy sical Therapy) OUTPATIENT [id number] JUAN MCNEIL 08/24 Released w/o Limitations [employer] ([facility])(P hysical Therapy ) [employer] ([facility])(Phy sical Therapy) OUTPATIENT [id number] MC MOLINA 08/26 Released w/o Limitations [employer] ([facility])(P hysical Therapy ) [employer] ([facility])(Phy sical Therapy) OUTPATIENT [id number] MARIA E HARPER 09/01 Released w/o Limitations [employer] ([facility])(P hysical Therapy ) [employer] ([facility])(Phy sical Therapy) OUTPATIENT [id number] MC MOLINA 09/03 Released w/o Limitations [employer] ([facility])(P hysical Therapy ) [employer] ([facility])(Phy sical Therapy) OUTPATIENT [id number] ARELY CESAR 09/16 Released w/o Limitations [employer] ([facility])(P hysical Therapy ) [employer] ([facility])(Phy sical Therapy) OUTPATIENT [id number] MC MOLINA 09/21 Released w/o Limitations [employer] ([facility])(P hysical Therapy ) [address] [place] [address] [employer] ([facility])(Phy sical Therapy) OUTPATIENT [id number] JUAN MCNEIL 09/23 Released w/o Limitations [employer] ([facility])(P hysical Therapy ) [facility] [employer] ([facility])(Phy sical Therapy) OUTPATIENT [id number] MC MOLINA 09/28 Released w/o Limitations [employer] ([facility])(P hysical Therapy ) [facility] [employer] ([facility])(Phy sical Therapy) OUTPATIENT [id number] MARIA E HARPER 09/30 Released w/o Limitations [employer] ([facility])(P hysical Therapy ) [facility] Medical [facility] [employer] ([facility])(Sco tt [facility] Team 4) OUTPATIENT [id number] eval lump L testicl e/discu ss reffera l [id number] GALO Ram 12/02 Released w/o Limitations [employer] ([facility])(S cott [facility] Team 4) [address] [place] [address] [employer] ([facility])(Fam lisbeth Med Tm B Non-AD BCC) TELE CONSULT [id number] Exchang e call BP MC Gonzales 12/17[facility] [employer] ([facility])(F amily Med Tm B Non-AD BCC) [address] [place] [address] [employer] ([facility])([facility] Team 4) OUTPATIENT [id number] follow up for blood pressur e [id number] GALO ANSARI 12/29 Released w/o Limitations [address] [place] [address] [employer] ([facility])([facility] Team 4) [address] [place] [address] [employer] ([facility])([facility] Team 4) OUTPATIENT [id number] F/U BP and cholest deborah [phone] KRISTY MCCORMACK 03/09 Released w/o Limitations [address] [place] [address] [employer] ([facility])([facility] Team 4) [address] [place] [address] [employer] ([facility])(Fam lisbeth Med Tm B Non-AD BCC) TELE CONSULT [id number] Lab results -- MARY ELLEN Mays 03/[address] [place] [address] [employer] ([facility])(F amily Med Tm B Non-AD BCC) [address] [place] [address] [employer] ([facility])([facility] Team 4) TELE CONSULT [id number] feels light headed taking new meds. AZEB GRACIA 03/[address] [place] [address] [employer] ([facility])([facility] Team 4) [address] [place] [address] [employer] ([facility])([facility] Team 4) OUTPATIENT [id number] lab f/u-med refill KRISTY MCCORMACK 04/23 Released w/o Limitations [address] [place] [address] [employer] ([facility])([facility] Team 4) [facility] Medical [facility] [employer] [facility])([facility] Team 4) TELE CONSULT [id number] Per AZEB Watson 05/[address] [place] [address] [employer] ([facility])([facility] Team 4) [facility] [employer] ([facility])([facility] Team 4) TELE CONSULT [id number] Rad Results KRISTY MCCORMACK 05/[address] [place] [address] [employer] ([facility])([facility] Team 4) [address] [place] [address] [employer] [facility])([facility] Team 4) OUTPATIENT [id number] f/u for medicat ion [phone] KRISTY MCCORMACK 07/12 Released w/o Limitations [facility] [employer] ([facility])([facility] Team 4[facility] Medical [facility] [employer] [facility])([facility] Team 4) TELE CONSULT [id number] Med Refill - AZEB Woo 08/[address] [place] [address] Travis PEREZB ([facility])([facility] Team 4) [address] [place] [address] Travis PEREZB [facility])(War rior Op Med Cln Tm A Ad) OUTPATIENT [id number] f/u Hyperte nsion [phone] KRISTY MCCORMACK 10/08 Released w/o Limitations [address] [place] [address] Group Travis PEREZB ([facility])(W ar[facility] Med Cln Tm A Ad) [address] [place] [address] Travis PEREZB [facility])(War rior Op Med Cln Tm A Ad) TELE CONSULT [id number] Disease Mgt note. MJ RENDON 10/[address] [place] [address] Travis PEREZB [facility])(W arrior Op Med Cln Tm A Ad) [address] [place] [address] Travis PEREZB [facility])(Opt ometry) OUTPATIENT [id number] diabete NIKO Herrera 10/25 Released w/o Limitations [address] [place] [address] Group Travis PEREZB [facility])(O ptometr y) [address] [place] [address] Travis PEREZB [facility])([facility] Team 3) OUTPATIENT [id number] Rash [phone] KELLI HERNADEZ 12/15 Released w/o Limitations [address] [place] [address] Travis PEREZB ([facility])([facility] Team 3) [address] [place] [address] Travis PEREZB [facility])(War rior Op Med Cln Tm A Ad) TELE CONSULT [id number] Patient to have urology referra l based on labs from December 2009 AZEB GRACIA 01/10 Referred for Appointment [address] [place] [address] Travis OLIVEROS [facility])(W arrior Op Med Cln Tm A Ad) [address] [place] [address] Travis TODDB [facility])(War rior Op Med Cln Tm A Ad) OUTPATIENT [id number] F/U on lab work [phone] KRISTY MCCORMACK 01/21 Released w/o Limitations [address] [place] [address] Travis [facility])(W ar[facility] Op Med Cln Tm A Ad) [address] [place] [address] Travis [facility])(War rior Op Med Cln Tm A Ad) TELE CONSULT [id number] Patient lab reviewe d: AZEB GRACIA 01/[address] [place] [address])(W arrior Op Med Cln Tm A Ad) [address] [place] [address])(War rior Op Med Cln Tm A Ad) TELE CONSULT [id number] Pt wants a new referra l for Derm. His contact is [phone]. MJ RENDON 02/14 Referred for Appointment [address] [place] [address] Travis [facility])(W arrior Op Med Cln Tm A Ad) [address] [place] [address])(War rior Op Med Cln Tm A Ad) TELE CONSULT [id number] Wyrafa -karenaba ck-did not mention what it reguard s-[phone] EJR AZEB GRACIA 03/[address] [place] [address])(W arrior Op Med Cln Tm A Ad) [address] [place] [address])(War rior Op Med Cln Tm A Ad) TELE CONSULT [id number] F/U Disease Mgt/HX of T2DM/HL P/HTN-P CM PA Rajwinder MJ RENDON 03/03 Referred for Appointment [address] [place] [address])(W arrior Op Med Cln Tm A Ad) [address] [place] [address])(War rior Op Med Cln Tm A Ad) OUTPATIENT [id number] poss sinus infecti on WILDKRISTY LOVE L 04/08 Released w/o Limitations [address] [place] [address])(W arrior Op Med Cln Tm A Ad) [address] [place] [address])(Sco tt Disease Managemen t) TELE CONSULT [id number] PCM PA [place] / calling regardi ng lab results and if needs meds adjuste d. [phone] MJ RENDON 05/03 Referred for Appointment [address] [place] [address])(S cott Disease Managem ent) [address] [place] [address] ([facility])(War rior Op Med Cln Tm A Ad) TELE CONSULT [id number] lab f/u GRACIAAZEB ANTUNEZ R 06/[address] [place] [address] Group Travis Robby [facility])(W arrior Op Med Cln Tm A Ad) [address] [place] [address] Travis [facility])(Sco tt Disease Managemen t) TELE CONSULT [id number] Due f/u apt in Jul 29 w fasting labs/PC M MJ Kenyon 07/11 Referred for Appointment [address] [place] [address] Group Travis Robby ([facility])(S cott Disease Managem ent) [address] [place] [address] Travis OLIVEROS [facility])(War rior Op Med Cln Tm A Ad) OUTPATIENT [id number] f/u blood pressur e [phone] KRISTY MCCORMACK 08/04 Released w/o Limitations [address] [place] [address] Travis OLIVEROS [facility])(W arrior Op Med Cln Tm A Ad) [address] [place] [address] Travis Robby [facility])(War rior Op Med Cln Tm A Ad) OUTPATIENT [id number] f/u blood pressur e - [phone] KRISTY MCCORMACK 08/29 Released w/o Limitations [address] [place] [address] Travis OLIVEROS [facility])(W arrior Op Med Cln Tm A Ad) [address] [place] [address] Travis [facility])(Sco tt Disease Managemen t) TELE CONSULT [id number] needs f/u--PC MJ Jean 09/[address] [place] [address] Travis OLIVEROS [facility])(S cott Disease Managem ent) [address] [place] [address] Travis Robby [facility])(War rior Op Med Cln Tm A Ad) OUTPATIENT [id number] fu diabete KRISTY Anthony 10/07 Released w/o Limitations [address] [place] [address] Travis OLIVEROS [facility])(W arrior Op Med Cln Tm A Ad) [address] [place] [address] Travis Robby [facility])(Sco tt Disease Managemen t) TELE CONSULT [id number] Due annual Diabeti c Eye exam MJ RENDON 10/[address] [place] [address] Group Travis OLIVEROS [facility])(S cott Disease Managem ent) [address] [place] [address] Travis [facility])(Opt ometry) OUTPATIENT [id number] Needs annual Diabeti c Eye Exam CARLOS ATWOOD Rei Kaur 10/14 Released w/o Limitations [address] [place] [address] Travis PEREZRobby [facility])(O ptometr y) [address] [place] [address] Travis [facility])([facility] ) TELE CONSULT [id number] ? Lab order - Ingram - - tsg ABDULAZIZ SONG 01/[address] [place] [address] Travis [facility])(S cott Interna l Medicin e Tm) [address] [place] [address] Travis [facility])([facility] ) OUTPATIENT [id number] fu medicat ions TEE INGRAM 01/30 Released w/o Limitations [address] [place] [address] Travis [facility])(S cott Interna l Medicin e Tm) [address] [place] [address] Travis [facility])([facility] ) TELE CONSULT [id number] Referra l needed/ Ingram/fxs ABDULAZIZ SONG 02/[address] [place] [address] Travis [facility])(S cott Interna l Medicin e Tm) [address] [place] [address] Travis [facility])([facility] ) OUTPATIENT [id number] pain above groin on left side/co mes and goes [id number] DARLYN PRADO CIV 03/13 Released w/o Limitations [address] [place] [address] Travis [facility])(S cott Interna l Medicin e Tm) [address] [place] [address])([facility] ) TELE CONSULT [id number] pls send ltr MARY ELLEN GEIGER 03/15 Referred for Appointment [address] [place] [address] Travis [facility])(S cott Interna l Medicin e Tm) [address] [place] [address] Travis [facility])([facility] ) TELE CONSULT [id number] wants the OK to resume Metform in Ingram cad tlt CHELY PACE 03/[address] [place] [address] Travis [facility])(S cott Interna l Medicin e Tm) [address] [place] [address] Travis [facility])([facility] ) TELE CONSULT [id number] regardi ng MRI and surgery Ingram cad tlt CHELY PACE 03/[address] [place] [address])(S cott Interna l Medicin e Tm) [address] [place] [address])([facility] ) OUTPATIENT [id number] f/u Back Pain and MRI results JUAN JOSE TEE W 03/31 Released w/o Limitations [address] [place] [address])(S cott Interna l Medicin e Tm) [address] [place] [address])([facility] ) OUTPATIENT [id number] Pain in left leg [phone] JUAN JOSE TEE W 05/15 Released w/o Limitations [address] [place] [address])(S cott Interna l Medicin e Tm) [address] [place] [address])([facility] ) TELE CONSULT [id number] Notes Entered by: JOSIE CORONA 26 May [id number] ------- ------- ------- ------- -- Referra l Request /MRI request -Juan Jose/53 1-2275, /c CHELY Ortega 05/[address] [place] [address])(S cott Interna l Medicin e Tm) [address] [place] [address])([facility] ) TELE CONSULT [id number] Medicat ion renewal - Ingram - /a fter 1530 - [phone] - tsg TEE INGRAM 07/[address] [place] [address])(S cott Interna l Medicin e Tm) [address] [place] [address])([facility] ) TELE CONSULT [id number] missing info on CHELY Clifton 07/[address] [place] [address])(S cott Interna l Medicin e Tm) [address] [place] [address])([facility] ) TELE CONSULT [id number] Notes Entered by: LISANDRO SANTIAGO 01 Sep 2011801 ------- ------- ------- ------- -- Med renewal /Juan Jose/53 1.7624c /CHELY Sanchez 08/[address] [place] [address])(S cott Interna l Medicin e Tm) [address] [place] [address])([facility] ) OUTPATIENT [id number] 3 mo f/u addrss HCM and Chronic Med Issues (per Dr Ingram) TEE INGRAM 09/14 Released w/o Limitations [address] [place] [address])(S cott Interna l Medicin e Tm) [address] [place] [address])([facility] ) TELE CONSULT [id number] Notes Entered by: BUBBA CABA 03 Oct 2011804 ------- ------- ------- ------- -- Med Refill ABDULAZIZ SONG 10/[address] [place] [address])(S cott Interna l Medicin e Tm) [address] [place] [address])([facility] ) TELE CONSULT [id number] Notes Entered by: BUBBA CABA 13 Oct 2011809 ------- ------- ------- ------- -- Referra l to Anao CHELY Ovalle 10/[address] [place] [address])(S cott Interna l Medicin e Tm) [address] [place] [address])([facility] ) TELE CONSULT [id number] Notes Entered by: JOSIE CORONA 06 Nov 2011 0859 ------- ------- ------- ------- -- Med refill- Juan Jose/314 -[phone] CHELY Gaming 11/[address] [place] [address])(S cott Interna l Medicin e Tm) [address] [place] [address])([facility] ) OUTPATIENT [id number] 3 mo f/u DM/Meds TEE INGRAM 11/19 Released w/o Limitations [address] [place] [address])(S cott Interna l Medicin e Tm) [address] [place] [address])([facility] ) TELE CONSULT [id number] Notes Entered by: YUMIKO COLLINS 08 Feb 2012 1330 ------- ------- ------- ------- -- Anelio n myranda Ingram cad t CHELY PACE 02/[address] [place] [address])(S cott Interna l Medicin e Tm) [address] [place] [address])([facility] ) TELE CONSULT [id number] Notes Entered by: PRAVEENA COTTON 21 Feb 2012 1257 ------- ------- ------- ------- -- Sylvia Ingram - [id number] [facility] 3:[id number] [place] [address] CHELY PACE 02/[address] [place] [address])(S cott Interna l Medicin e Tm) [address] [place] [address])([facility] ) OUTPATIENT [id number] headach e, problem with blood pressur e DANO RICO 03/14 Released w/o Limitations [address] [place] [address])(S cott Interna l Medicin e Tm) [address] [place] [address])([facility] ) TELE CONSULT [id number] Notes Entered by: VICKI VILLA 04 Apr 2012 1120 ------- ------- ------- ------- -- Network Results -OTORHI NOLARY 03/26/12 TEE INGRAM 04/[address] [place] [address])(S cott Interna l Medicin e Tm) [address] [place] [address])([facility] ) TELE CONSULT [id number] Notes Entered by: LARA FULTON 05 Apr 2012 1307 ------- ------- ------- ------- -- Network Results - UROLOGY 2 TEE INGRAM 04/[address] [place] [address])(S cott Interna l Medicin e Tm) [address] [place] [address])([facility] Tm) OUTPATIENT [id number] medicat ion renewal s TEE INGRAM 05/13 Released w/o Limitations [address] [place] [address])(S cott Interna l Medicin e Tm) [address] [place] [address])([facility] Tm) TELE CONSULT [id number] Notes Entered by: Erendira NICE 14 Nov 2012 0701 ------- ------- ------- ------- -- Med refill/ Juan Jose/[phone] tile 3:30 2 days left ABDULAZIZ SONG 11/[address] [place] [address])(S cott Interna l Medicin e Tm) [address] [place] [address])([facility] Tm) OUTPATIENT [id number] spots on right foot and wants to discuss diabete s [id number] TEE INGRAM 12/24 Released w/o Limitations [address] [place] [address])(S cott Interna l Medicin e Tm) [address] [place] [address])([facility] tt Disease Managemen t) TELE CONSULT [id number] Notes Entered by: FILEMON JORGE 30 Dec 2012 1520 ------- ------- ------- ------- -- Pt is a 57 y/o showing due and overdue for labs and Dilated Retinal Eye exam. FILEMON JORGE 12/[address] [place] [address])(S cott Disease Managem ent) [address] [place] [address])([facility] Tm) TELE CONSULT [id number] Notes Entered by: LISANDRO SANTIAGO 07 Jan 2013 1549 ------- ------- ------- ------- -- Ref renewal /Juan Jose/31 4.457.4 203 till 1530 or cell ABDULAZIZ SONG Rafa 01/[address] [place] [address])(S cott Interna l Medicin e Tm) [address] [place] [address])(Opt ometry) OUTPATIENT [id number] annual Dilated Retinal Eye exam - GUZMAN Pink 01/14 Released w/o Limitations [address] [place] [address] Travis [facility])(O ptometr y) [address] [place] [address])([facility] ) TELE CONSULT [id number] Notes Entered by: CORBY SORENSEN 20 Jan 2013 0831 ------- ------- ------- ------- -- Lab results /Juan Jose/(David ) or (Erendira)[phone] TEE INGRAM 01/[address] [place] [address])(S cott Interna l Medicin e Tm) [address] [place] [address])([facility] Tm) TELE CONSULT [id number] Notes Entered by: VICKI VILLA 05 Feb 2013 1120 ------- ------- ------- ------- -- Network Results -OTORHI LINNEA CHUNG 02/04/13 TEE INGRAM 02/[address] [place] [address])(S cott Interna l Medicin e Tm) [address] [place] [address])([facility] Tm) TELE CONSULT [id number] Notes Entered by: GILBERT JAVIER 11 Mar 2013 1009 ------- ------- ------- ------- -- Network Results - DERMATO LOGY 03/10/13 TEE INGRAM 03/[address] [place] [address] Travis [facility])(S cott Interna l Medicin e Tm) [address] [place] [address])([facility] Tm) TELE CONSULT [id number] Notes Entered by: CORBY SORENSEN 19 Mar 2013 0955 ------- ------- ------- ------- -- Referra l jacklyn /Juan Jose/61 8.505.0 241 MARY CARMEN CARY I 03/[address] [place] [address])(S cott Interna l Medicin e Tm) [address] [place] [address])([facility] Tm) TELE CONSULT [id number] Notes Entered by: DAILY CARPIO 09 Apr 2013 1445 ------- ------- ------- ------- -- Network Results -UROLOG Y 3 TEE INGRAM 04/[address] [place] [address])(S cott Interna l Medicin e Tm) [address] [place] [address])([facility] ) TELE CONSULT [id number] Notes Entered by: DUNCAN GREER 05 May 2013 1353 ------- ------- ------- ------- -- Network Results -Podiat ry 02/26/13 TEE INGRAM 05/[address] [place] [address])(S cott Interna l Medicin e Tm) [address] [place] [address])([facility] ) OUTPATIENT [id number] follow up medicat ion [id number] TEE INGRAM 05/13 Released w/o Limitations [address] [place] [address])(S cott Interna l Medicin e Tm) [address] [place] [address])([facility] Tm) TELE CONSULT [id number] Notes Entered by: Erendira NICE 18 Aug 2013 1058 ------- ------- ------- ------- -- ENT referra dulce/Juan Jose/6 [phone] or [phone] CHELY PACE 08/[address] [place] [address] Group [facility])(S cott Interna l Medicin e Tm) [address] [place] [address])([facility] ) TELE CONSULT [id number] Notes Entered by: JOSIE CORONA 15 Oct 2013 0734 ------- ------- ------- ------- -- Med Refill- Juan Jose/618 -[phone] 41 KEN CONWAY 10/[address] [place] [address])(S cott Interna l Medicin e Tm) [address] [place] [address])([facility] ) OUTPATIENT [id number] painful sore inside mouth; painful to eat [phone] CHET BILL 10/22 Released w/o Limitations [address] [place] [address])(S cott Interna l Medicin e Tm) [address] [place] [address])([facility] ) TELE CONSULT [id number] Notes Entered by: BAO RITTER [facility] 22 Oct 2013 1128 ------- ------- ------- ------- -- Lab and X-ray results from 4 KEN CONWAY 10/[address] [place] [address])(S cott Interna l Medicin e Tm) [address] [place] [address])([facility] ) TELE CONSULT [id number] Notes Entered by: BAO RITTER KIRSTEN 24 Oct 2013 0747 ------- ------- ------- ------- -- Lab results from 4 CHET BILL 10/[address] [place] [address])(S cott Interna l Medicin e Tm) [address] [place] [address])([facility] ) TELE CONSULT [id number] Notes Entered by: JULIANO INGRAM 29 Oct 2013 0917 ------- ------- ------- ------- -- Study results VIVIAN BECKER 10/29 Referred for Appointment [address] [place] [address])(S cott Interna l Medicin e Tm) [address] [place] [address])([facility] ) TELE CONSULT [id number] Notes Entered by: DOMONIQUE CHAN 17 Feb 2014 1350 ------- ------- ------- ------- -- Lab Order Ezequiel /Carlos lder/50 5.0241 KEN CONWAY 02/[address] [place] [address])(S cott Interna l Medicin e Tm) [address] [place] [address])([facility] ) OUTPATIENT [id number] Lab results , annual med refills JOSE J GALLAGHER 03/16 Released w/o Limitations [address] [place] [address])(S cott Interna l Medicin e Tm) [address] [place] [address])([facility] ) TELE CONSULT [id number] Notes Entered by: CORBY SORENSEN 13 Apr 2014 1238 ------- ------- ------- ------- -- New referra dulce/tam [facility]/6 18.505. 0241 KEN CONWAY 04/[address] [place] [address])(S cott Interna l Medicin e Tm) [address] [place] [address])([facility] ) TELE CONSULT [id number] Notes Entered by: ADELAIDE EUCEDA 05 May 2014 1116 ------- ------- ------- ------- -- Network results Optomet ry 4 JOSE J GALLAGHER 05/[address] [place] [address])(S cott Interna l Medicin e Tm) [address] [place] [address])([facility] ) TELE CONSULT [id number] Notes Entered by: GILMAR VENTURA 22 Jun 2014 1208 ------- ------- ------- ------- -- [facility] med request KEN CONWAY 06/[address] [place] [address])(S cott Interna l Medicin e Tm) [address] [place] [address])([facility] ) TELE CONSULT [id number] Notes Entered by: DAYNA ESPINOZA 13 Aug 2014 1540 ------- ------- ------- ------- -- Dermato logy referra cardona renewal request ed by Pt NASEEM ESPINOZA 08/13 Referred for Appointment [address] [place] [address])(S cott Interna l Medicin e Tm) [address] [place] [address])([facility] ) TELE CONSULT [id number] Notes Entered by: WALLACE REGAN 21 Sep 2014 1619 ------- ------- ------- ------- -- Network results - Pulmona ry/Kingsley so Medicin e 014 EUGENE SPRINGER 09/[address] [place] [address])(S cott Interna l Medicin e Tm) [address] [place] [address])([facility] ) TELE CONSULT [id number] Notes Entered by: ADELAIDE EUCEDA 23 Sep 2014 1501 ------- ------- ------- ------- -- Network results Optomet ry 4 AZEB HERNANDEZ V 09/[address] [place] [address])(S cott Interna l Medicin e Tm) [address] [place] [address])([facility] ) TELE CONSULT [id number] Notes Entered by: Cindy NICE 12 Oct 2014 1022 ------- ------- ------- ------- -- New sylvia Hernandez 667.802 7 CHELY PACE 10/[address] [place] [address])(S cott Interna l Medicin e Tm) [address] [place] [address])([facility] ) TELE CONSULT [id number] Notes Entered by: VICKI VILLA 13 Jan 2015 0714 ------- ------- ------- ------- -- Network Results -DERMAT OLOGY 10/21/14 CHET BILL 01/[address] [place] [address])(S cott Interna l Medicin e Tm) [address] [place] [address])([facility] Disease Managemen t) TELE CONSULT [id number] Notes Entered by: FILEMON JORGE 15 Feb 2015 1627 ------- ------- ------- ------- -- Pt needing fasting labs and f/u appt. FILEMON JORGE 02/[address] [place] [address])(S cott Disease Managem ent) [address] [place] [address])([facility] ) OUTPATIENT [id number] f/u lab results - med refills - needs 3 referra olson (Diab) JORGE FUNK V 03/11 Released w/o Limitations [address] [place] [address])(S cott Interna l Medicin e Tm) [address] [place] [address])([facility] ) TELE CONSULT [id number] Notes Entered by: PENNY SALAMANCA 01 Apr 2015 1257 ------- ------- ------- ------- -- Rx jacklyn - Garett - [phone] -8027/6 [phone] CHELY PACE 04/[address] [place] [address])(S cott Interna l Medicin e Tm) [address] [place] [address])([facility] ) TELE CONSULT [id number] Notes Entered by: Leah WATT 08 Apr 2015 0738 ------- ------- ------- ------- -- ER F/U- Ortho Ref/ Garett / CHELY PACE 04/[address] [place] [address] Travis [facility])(S cott Interna l Medicin e Tm) [address] [place] [address])(Min or Procedure Clinic) OUTPATIENT [id number] 3rd floor [facility]/Pr eop clinic QUYEN ALVAREZ 04/12 Released w/o Limitations [address] [place] [address])( inor Procedu re Clinic) [address] [place] [address])([facility] ) TELE CONSULT [id number] Notes Entered by: VICKI VILLA 27 Apr 2015 1144 ------- ------- ------- ------- -- Network Results OTORHIN OLARYNG OLOGY 04/26/15 JORGE FUNK V 04/[address] [place] [address])(S cott Interna l Medicin e Tm) [address] [place] [address])(Min or Procedure Clinic) OUTPATIENT [id number] 2ND FLOOR [facility]/SC RUBEN C-SCOPE CONNOR YODER 05/18 Released w/o Limitations [address] [place] [address])([facility] Proced re [facility]) [address] [place] [address])([facility] Tm Blue) TELE CONSULT [id number] Notes Entered by: KRISTY ARCHER 19 May 2015 1508 ------- ------- ------- ------- -- Call back C-scope on 1dec15- KRISTY Olivas 05/[address] [place] [address] Travis Robby [facility] [address] [place] [address])([facility] ) OUTPATIENT [id number] hand pain//3 [phone] TEO ENRIQUEZ 06/25 Released w/o Limitations [address] [place] [address] Group Travis TODDB ([facility])([facility]) [address] [place] [address] Travis TODDB ([facility])([facility] ) TELE CONSULT [id number] Notes Entered by: TEO ENRIQUEZ 06 Jul 2015 1502 ------- ------- ------- ------- -- Lab results ARACELI OROZCO 07/06 Referred for Appointment [address] [place] [address] Group Travis TODDB ([facility])([facility]) [address] [place] [address] Travis B ([facility])([facility] ) TELE CONSULT [id number] Notes Entered by: DUNCAN GREER 03 Sep 2015 1027 ------- ------- ------- ------- -- Network Results RHEUMAT OLOGY 09/01/15 KGVincent ENRIQUEZ, TEO 09/[address] [place] [address] Group Travis TODDB ([facility])([facility]) [address] [place] [address] Travis TODDB ([facility])([facility] ) OUTPATIENT [id number] F/U lab results TEO ENRIQUEZ 09/19 Released w/o Limitations [address] [place] [address] Travis TODDB ([facility])([facility]) [address] [place] [address] Travis B ([facility])([facility] ) TELE CONSULT [id number] Notes Entered by: KATJA CANTU 03 Dec 2015 1531 ------- ------- ------- ------- -- Network Results Rheumat ology 6 SR DEBBIE, DACLAURYN 12/[address] [place] [address] Group Travis TODDB ([facility])([facility]) [address] [place] [address] [employer] ([facility])([facility] ) TELE CONSULT [id number] Notes Entered by: DUNCAN GREER 17 Mar 2016 0910 ------- ------- ------- ------- -- Network Results RHEUMAT OLOGY 03/15/16 KGM DEBBIE, DACRE 03/[address] [place] [address])([facility]) [address] [place] [address])([facility] ) OUTPATIENT [id number] f/u on labs 391.709 3 ENRIQUEZ, DACRE 03/28 Released w/o Limitations [address] [place] [address] Group [place] ([facility])([facility]) [address] [place] [address] ([facility])([facility] ) OUTPATIENT [id number] Low R Back pain [id number] ENRIQUEZ, DACRE 04/11 Released w/o Limitations [address] [place] [address] ([facility])([facility]) [address] [place] [address])([facility] ) TELE CONSULT [id number] Notes Entered by: ADELAIDE EUCEDA 06 Jun 2016 1608 ------- ------- ------- ------- -- Network Results Rheumat ology 6 HEMA ENRIQUEZ, DACRE 06/[address] [place] [address])([facility]) [address] [place] [address])([facility] ) TELE CONSULT [id number] Notes Entered by: WALLACE REGAN 09 Jun 2016 1442 ------- ------- ------- ------- -- Network results Ophthal mology 016 DMJ DEBBIE, DACRE 06/[address] [place] [address])([facility]) [address] [place] [address])([facility] ) TELE CONSULT [id number] Notes Entered by: ASH HE 17 Jul 2016 0849 ------- ------- ------- ------- -- Referra l renewal /Med renewal /Debbie // EUGENE Molina 07/[address] [place] [address])([facility]) [address] [place] [address])([facility] ) TELE CONSULT [id number] Notes Entered by: DELIA YOUNG 30 Aug 2016 1212 ------- ------- ------- ------- -- Network Results -RHEUMA TOLOGY 08/29/16 JORGE LAMAS V 08/[address] [place] [address])([facility]) [address] [place] [address])([facility] ) TELE CONSULT [id number] Notes Entered by: DARRON TENA 04 Oct 2016 0944 ------- ------- ------- ------- -- Network Results Radiolo gy 7 BG ABDOMEN 1 VIEW JORGE FUNK V 10/[address] [place] [address])([facility]) [address] [place] [address])([facility] ) TELE CONSULT [id number] Notes Entered by: SHAHLA BA 16 Oct 2016 1417 ------- ------- ------- ------- -- Renewal Renewal Request /Edson craig/ DAVID MARES 10/16 Referred for Appointment [address] [place] [address])([facility]) [address] [place] [address])([facility] ) TELE CONSULT [id number] Notes Entered by: FRANSISCO LLOYD 17 Oct 2016 1004 ------- ------- ------- ------- -- Network Results Radiolo gy 7 JORGE RAMOS ABD, V 10/17 [facility] Group [place] ([facility])([facility]) [address] [place] [address])([facility] ) TELE CONSULT [id number] Notes Entered by: FRANSISCO LLOYD 20 Oct 2016 1356 ------- ------- ------- ------- -- Network Results Laborat ory 7 JORGE RAMOS V 10/[address] [place] [address] Group [facility])([facility]) [address] [place] [address])([facility] ) TELE CONSULT [id number] Notes Entered by: JEANNETTE HAWK 23 Oct 2016 1432 ------- ------- ------- ------- -- Network Results Laborat ory 10/20/16 JORGE MCCLELLAN V 10/23 [facility] Group [facility])([facility]) [address] [place] [address])([facility] ) TELE CONSULT [id number] Notes Entered by: FRANSISCO LLOYD 25 Oct 2016 0619 ------- ------- ------- ------- -- Network Results Radiolo gy 7 JORGE STRONG ABD, V 10/25 [facility] Medical Group [facility] ([facility])([facility]) [facility] Medical [facility])([facility] ) TELE CONSULT [id number] Notes Entered by: FRANSISCO LLOYD 26 Oct 2016 0830 ------- ------- ------- ------- -- Network Results Radiolo gy 7 JORGE COLLAZO V 10/[address] [place], [place] [address]B ([facility])([facility]) [address] [place] [address])([facility] Internal [facility]) TELE CONSULT [id number] Notes Entered by: FRANSISCO LLOYD 30 Oct 2016 0812 ------- ------- ------- ------- -- Network Results Laborat ory 7 JORGE RAMOS V 10/[address] [place] [address])([facility]) [address] [place] [address])([facility] ) TELE CONSULT [id number] Notes Entered by: FRANSISCO LLOYD 30 Oct 2016 1244 ------- ------- ------- ------- -- Network Results Urology 6 JORGE RAMOS V 10/[address] [place] [address])([facility]) [address] [place] [address])([facility] Internal [facility]) TELE CONSULT [id number] Notes Entered by: ADELAIDE EUCEDA 01 Nov 2016 1051 ------- ------- ------- ------- -- Network Results Urologi trevor Surgery 7 JORGE BEVERLY V 11/[address] [place] [address])([facility]) [address] [place] [address])([facility] ) TELE CONSULT [id number] Notes Entered by: ASH HE 17 Nov 2016 1240 ------- ------- ------- ------- -- Sylvia Villasenor /Edson craig/ /MARY ELLEN Palmer 11/17 Referred for Appointment [address] [place] [address])([facility]) [address] [place] [address])([facility] ) TELE CONSULT [id number] Notes Entered by: Leah WATT 22 Nov 2016 1005 ------- ------- ------- ------- -- Med Renewal /Edson craig/ - MARSHALL Gallardo 11/22 Referred for Appointment [address] [place] [address] Group [facility])([facility]) [address] [place] [address])([facility] ) TELE CONSULT [id number] Notes Entered by: PRAVEENA COTTON 04 Dec 2016 09 ------- ------- ------- ------- -- Update Sylvia cardona - appt December 20 - Garett - [phone] EUGENE Toro 12/[address] [place] [address])([facility]) [address] [place] [address])([facility] ) TELE CONSULT [id number] Notes Entered by: PEPE QUEVEDO 11 Jan 2017703 ------- ------- ------- ------- -- SX high blood , med renewal /EDSON Craig/ [id number] KELLI TRAN 01/[address] [place] [address])([facility]) [address] [place] [address])([facility]) OUTPATIENT [id number] HTN f/u PATTY PACE 01/25 Released w/o Limitations [address] [place] [address])([facility]) [address] [place] [address])([facility] ) OUTPATIENT [id number] F/u hernia repair JORGE FUNK V 01/25 Released w/o Limitations [address] [place] [address] Travis [facility])([facility]) [address] [place] [address])([facility] ) TELE CONSULT [id number] Notes Entered by: SHAHLA BA 15 Feb 2017 0801 ------- ------- ------- ------- -- Иван Marley/ Garett / KELLI TRAN 02/[address] [place] [address])([facility]) [address] [place] [address])([facility] Tm) TELE CONSULT [id number] Notes Entered by: WALLACE REGAN 22 Feb 2017 1555 ------- ------- ------- ------- -- Network results Surgery 017 ZULY WILSON 02/[address] [place] [address])([facility]) [address] [place] [address])([facility] ) OUTPATIENT [id number] Medicat ion Renewal , Discuss [place] letter [id number] JORGE FUNK V 02/28 Released w/o Limitations [address] [place] [address])([facility]) [address] [place] [address])([facility] ) TELE CONSULT [id number] Notes Entered by: CHRISTIAN HARRELL 01 Mar 2017 1349 ------- ------- ------- ------- -- Network Results - Otorhin olaryng ology (ENT) 7 ZULY CLARK 03/[address] [place] [address])([facility]) [address] [place] [address])([facility] Tm) TELE CONSULT [id number] Notes Entered by: Estella SALDIVAR 06 Mar 2017 1023 ------- ------- ------- ------- -- Network results Dermato logy 12/20/16 JORGE HOLMAN V 03/[address] [place] [address] Travis [facility])([facility]) [address] [place] [address])([facility] ) TELE CONSULT [id number] Notes Entered by: Estella SALDIVAR 15 Mar 2017 0811 ------- ------- ------- ------- -- Network Results Rheumat ology 03/07/17 JORGE HOLMAN V 03/[address] [place] [address])([facility]) [address] [place] [address])([facility] ) TELE CONSULT [id number] Notes Entered by: SHAHLA BA 02 Apr 2017 1126 ------- ------- ------- ------- -- Paperwo rachael Cabral/ Garett / MARSHALL BRAVO 04/02 Referred for Appointment [address] [place] [address])([facility]) [address] [place] [address])([facility] ) TELE CONSULT [id number] Notes Entered by: DELIA YOUNG 16 May 2017 1019 ------- ------- ------- ------- -- Network Results -OPHTHA LMOLOGY 7 JORGE LAMAS V 05/[address] [place] [address])([facility]) [address] [place] [address])([facility] ) TELE CONSULT [id number] Notes Entered by: DARRON TENA 17 May 2017 1150 ------- ------- ------- ------- -- Network Results Radiolo gy 7 JORGE FUNK V 05/[address] [place] [address])([facility]) [address] [place] [address])([facility] ) TELE CONSULT [id number] Notes Entered by: FRANSISCO LLOYD 18 May 2017 0951 ------- ------- ------- ------- -- Network Results Urology 7 JORGE FUNK V 05/[address] [place] [address])([facility]) [address] [place] [address])([facility] ) TELE CONSULT [id number] Notes Entered by: SHAHLA BA 23 May 2017 0818 ------- ------- ------- ------- -- Med [facility] /Edson craig/ EUGENE SPRINGER 05/[address] [place] [address])([facility]) [address] [place] [address])([facility] ) TELE CONSULT [id number] Notes Entered by: SHAHLA BA 23 May 2017 1341 ------- ------- ------- ------- -- Referra dulce Villasenor Request (appt May)/Max ndowe/6 [phone] DAVID MARES 05/23 Referred for Appointment [address] [place] [address])([facility]) [address] [place] [address])([facility] ) TELE CONSULT [id number] Notes Entered by: EUGENE SPRINGER 14 Jun 2017 1211 ------- ------- ------- ------- -- Walked into clinic c/o cold Sx's EUGENE SPRINGER 06/[address] [place] [address])([facility]) [address] [place] [address])([facility]) OUTPATIENT [id number] PATTY JHAVERI 06/14 Released w/o Limitations [address] [place] [address])([facility]) [address] [place] [address])([facility] ) TELE CONSULT [id number] Notes Entered by: LUPE ALMONTE 25 Jun 2017 1416 ------- ------- ------- ------- -- Network Results - Rheumat ology 7 JORGE FUNK V 06/[address] [place] [address])([facility]) [address] [place] [address])([facility] ) TELE CONSULT [id number] Notes Entered by: RYAN BRUNO 19 Jul 2017 0722 ------- ------- ------- ------- -- Med Renewal / Garett / - sgj KELLI TRAN 07/[address] [place] [address])([facility]) [address] [place] [address])([facility] ) TELE CONSULT [id number] Notes Entered by: ASH HE 15 Aug 2017 0918 ------- ------- ------- ------- -- Sylvia Kendall and Renewal /Edson craig/ /clm KELLI TRAN 08/[address] [place] [address])([facility]) [address] [place] [address])([facility] ) TELE CONSULT [id number] Notes Entered by: SHAHLA BA 16 Oct 2017 0753 ------- ------- ------- ------- -- Referra cardona Renewal Request (appt 16 November)/Magdi byrd/ MARSHALL BRAVO 10/16 Referred for Appointment [facility] Group Travis [facility])([facility]) [address] [place] [address] Group Travis [facility])([facility] ) TELE CONSULT [id number] Notes Entered by: ASHLEY SAGE RET 14 Jan 2018 0738 ------- ------- ------- ------- -- Ref Renewal Dermato logy/Max chine/6 18.391. [phone] [facility] JORGE SORENSEN 01/14 Immediate Referral [facility] Group Travis [facility])([facility] T[facility]) [address] [place] [address])([facility] ) OUTPATIENT [id number] f/u for bp and med adjustm ent [id number] JORGE FUNK V 01/24 Released w/o Limitations [facility] Group Travis [facility])([facility] Medic[facility] Tm) [address] [place] [address] Travis [facility])([facility] ) TELE CONSULT [id number] Notes Entered by: LISANDRO SANTIAGO 31 Jan 2018 1019 ------- ------- ------- ------- -- Referra dulce villasenor /deson craig/[id number] JORGE SORENSEN 01/31 Immediate Referral [facility] Group Travis [facility])([facility] Intern[facility] Medicin [facility] Tm) [facility] Travis [facility])([facility] ) TELE CONSULT [id number] Notes Entered by: JORGE SORENSEN 31 Jan 2018 1248 ------- ------- ------- ------- -- BP reading s for JORGE Carvalho 01/31 Released to Self Care [facility] Travis [facility])([facility] Intern[facility] Medicin [facility] Tm) [facility] Medical [facility] Travis [facility])([facility] ) TELE CONSULT [id number] Notes Entered by: SHAHLA BA 19 Feb 2018 0805 ------- ------- ------- ------- -- Multipdulce Quiñonez/ Garett /391.70 93 JORGE SORENSEN 02/19 Released to Self [employer] [address] [place] [address])([facility]) [address] [place] [address])([facility] ) TELE CONSULT [id number] Notes Entered by: Estella SALDIVAR 26 Feb 2018 1547 ------- ------- ------- ------- -- Sylvia villasenor for [facility] MARY ELLEN Lazcano 02/26 Referred for Appointment [address] [place] [address])([facility]) [address] [place] [address])([facility] ) TELE CONSULT [id number] Notes Entered by: PRAVEENA COTTON 04 Mar 2018 0857 ------- ------- ------- ------- -- Med Refill - med brody rahman - Garett - [phone] -[id number] JORGE SORENSEN 03/04 Released to Self Care [address] [place] [address])([facility]) [address] [place] [address])([facility] Internal [facility]) TELE CONSULT [id number] Notes Entered by: SHAHLA BA 18 Mar 2018 0946 ------- ------- ------- ------- -- Med Renewal s/Christina mejía/618. 391.709 3 JORGE SORENSEN 03/18 Medication Refill Forwarded [address] [place] [address])([facility]) [address] [place] [address])([facility] ) TELE CONSULT [id number] Notes Entered by: Hedy SAUCEDA 01 Apr 2018 0856 ------- ------- ------- ------- -- Shawna waltersg / med refill x gwp MARY ELLEN GEIGER 04/01 Referred for Appointment [address] [place] [address])([facility]) [address] [place] [address])([facility]) TELE CONSULT [id number] Notes Entered by: NATA CARRENO 09 Apr 2018 1344 ------- ------- ------- ------- -- Disease Managem ent- Annual f/u and Labs NATA CARRENO 04/09 Other Not Elsewhere Classified [address] [place] [address])(S cott Disease Managem ent) [address] [place] [address])([facility] Tm) TELE CONSULT [id number] Notes Entered by: COLBY HARRIS 21 May 2018 0847 ------- ------- ------- ------- -- Med refill/ Dr. Funk / JORGE SORENSEN 05/21 Medication Refill Forwarded [address] [place] [address])([facility]) [address] [place] [address])([facility] Tm) TELE CONSULT [id number] Notes Entered by: GILMAR VENTURA 20 Jun 2018 1030 ------- ------- ------- ------- -- MARY ELLEN Beach 06/20 Referred for Appointment [address] [place] [address])([facility]) [address] [place] [address])([facility]m) TELE CONSULT [id number] Notes Entered by: Hedy SAUCEDA 14 Aug 2018 0900 ------- ------- ------- ------- -- Micare msg / med refill / gwp JORGE SORENSEN 08/14 Medication Refill Forwarded [address] [place] [address])([facility]) [address] [place] [address])([facility] ) TELE CONSULT [id number] Notes Entered by: Hedy SAUCEDA 02 Sep 2018 1010 ------- ------- ------- ------- -- Micare msg/ referra l request / gwp JORGE SORENSEN 09/02 Immediate Referral [address] [place] [address])([facility]) [address] [place] [address])([facility] ) TELE CONSULT [id number] Notes Entered by: Hedy SAUCEDA 12 Sep 2018 0923 ------- ------- ------- ------- -- Micare msg/ referra l request / gwp EUGENE SPRINGER 09/12 Released w/o Limitations [address] [place] [address])([facility]) [address] [place] [address])([facility] ) TELE CONSULT [id number] Notes Entered by: Hedy SAUCEDA 16 Sep 2018 0924 ------- ------- ------- ------- -- Micare msg/ referra l request / gwp JORGE SORENSEN 09/16 Immediate Referral [address] [place] [address])([facility]) [address] [place] [address])([facility] ) TELE CONSULT [id number] Notes Entered by: Hedy SAUCEDA 18 Sep 2018 0923 ------- ------- ------- ------- -- Micare msg/ referra l renewal / gwp TONY COLE 09/18 Referred for Appointment [address] [place] [address])([facility]) [address] [place] [address])([facility] ) TELE CONSULT [id number] Notes Entered by: NATALEE CALERO 07 Nov 2018 1057 ------- ------- ------- ------- -- Network Results Podiatr y 019 TEO HOPE 11/[address] [place] [address])([facility]) [address] [place] [address])([facility] ) TELE CONSULT [id number] Notes Entered by: Magdi VALDES 02 Dec 2018 1214 ------- ------- ------- ------- -- Network results Urology 019 AMILCAR GOLDMAN 12/[address] [place] [address])([facility]) [address] [place] [address])([facility] ) TELE CONSULT [id number] Notes Entered by: Hedy SAUCEDA 03 Feb 2019 0831 ------- ------- ------- ------- -- shawna msg/ med refill x 4 / EUGENE Reyes 02/03 Medication Refill Forwarded [address] [place] [address])([facility]) [address] [place] [address])([facility] ) TELE CONSULT [id number] Notes Entered by: ASHLEY SAGE RET 03 Feb 2019 1220 ------- ------- ------- ------- -- Lab Order- Appt ight/61 8.954.5 900 EUGENE SPRINGER 02/03 Other Not Elsewhere Classified [address] [place] [address])([facility] Medic[facility] Tm) [facility] Medical [facility] Travis [facility])([facility] ) OUTPATIENT [id number] 1 annual visit and lab review AMILCAR PRECIADO 02/25 Released w/o Limitations [address] [place] [address] Travis [facility])([facility] Intern[facility] l Medicin [facility] Tm) [address] [place] [address])([facility] ) TELE CONSULT [id number] Notes Entered by: Hedy SAUCEDA 01 Apr 2019 1240 ------- ------- ------- ------- -- Shawna agarwal/ sylvia torres / MARY ELLEN Prakash 04/01 Referred for Appointment [address] [place] [address] Group Travis [facility])([facility] Intern[facility] l Medicin e Tm) [address] [place] [address])([facility] ) OUTPATIENT [id number] 4 Wheezin g in chest AMILCAR PRECIADO 04/14 Released w/o Limitations [address] [place] [address])([facility]) [address] [place] [address])([facility] ) TELE CONSULT [id number] Notes Entered by: GILMAR VENTURA 14 Apr 2019 1624 ------- ------- ------- ------- -- WHEENOY G EUGENE SPRINGER 04/14 Referred for Appointment [facility])([facility]) [facility])([facility] ) OUTPATIENT [id number] F/u Cough AMILCAR PRECIADO 05/01 Released w/o Limitations [address] [place] [address] Group Travis B ([facility])(S cott Interna l Medicin e Tm) [address] [place] [address])([facility] ) OUTPATIENT [id number] pain in right arm (hand - elbow - shoulde r) FLAKITO MARTINO 08/07 Released w/o Limitations [address] [place] [address])([facility]) [address] [place] [address])([facility] ) TELE CONSULT [id number] Notes Entered by: ADELINA MORALES 13 Aug 2019 1625 ------- ------- ------- ------- -- Network results Physica l Therapy 020 FLAKITO RICE 08/[address] [place] [address])([facility]) [address] [place] [address])([facility] ) TELE CONSULT [id number] Notes Entered by: ADELINA MORALES 01 Sep 2019 1139 ------- ------- ------- ------- -- Network results Physica l Therapy 020 FLAKITO RICE 08/[address] [place] [address])([facility] Intern[facility] Tm) [address] [place] [address])([facility] ) TELE CONSULT [id number] 5 Notes Entered by: GILMAR VENTURA 16 Sep 2019 1151 ------- ------- ------- ------- -- MARY ELLEN Beach 09/15 Other Not Elsewhere Classified [address] [place] [address])([facility] Intern[facility] Medic[facility] Tm) [address] [place] [address])([facility] ) TELE CONSULT [id number] 3 Notes Entered by: GILMAR VENTURA 20 Oct 2019 1021 ------- ------- ------- ------- -- MARY ELLEN Jaeger 10/19 Referred for Appointment [address] [place] [address])([facility]) [address] [place] [address])([facility] ) TELE CONSULT [id number] Notes Entered by: Hedy SAUCEDA 24 Nov 2019 0805 ------- ------- ------- ------- -- Micare msg/ appt request / B/P concern s / EUGENE Reyes 11/23 Other Not Elsewhere Classified [address] [place] [address])([facility] Intern[facility] Tm) [address] [place] [address])([facility] ) OUTPATIENT [id number] elevate d BP and low back pain, call [phone] FLAKITO MARTINO 11/24 Released w/o Limitations [address] [place] [address])([facility] Tm) [address] [place] [address])([facility] ) TELE CONSULT [id number] 9 Notes Entered by: NATALEE CALERO 25 Nov 2019 1246 ------- ------- ------- ------- -- Network results Physica l Therapy 020 KSP FLAKITO MARTINO 11/[address] [place] [address])([facility] Intern[facility] Tm) [address] [place] [address])([facility] ) TELE CONSULT [id number] Notes Entered by: ST CHANDLER BUNDY 11 Dec 2019 0924 ------- ------- ------- ------- -- Network results Podiatr y 020 BOONE VARGAS 12/[address] [place] [address])([facility] Intern[facility] Tm) [address] [place] [address])([facility] ) TELE CONSULT [id number] 5 Notes Entered by: Hedy SAUCEDA 12 Dec 2019 1049 ------- ------- ------- ------- -- micare msg/ B/P reading s / gwp EUGENE SPRINGER 12/11 Other Not Elsewhere Classified [address] [place] [address] Group [facility])(S cott Interna l Medicin e Tm) [address] [place] [address])([facility] ) TELE CONSULT [id number] 6 Notes Entered by: Hedy SAUCEDA 17 Dec 2019 1037 ------- ------- ------- ------- -- Shawna agarwal/ FYI / B/P /gwp EUGENE SPRINGER 12/16 Other Not Elsewhere Classified [address] [place] [address])([facility] Intern[facility] Medicin [facility] Tm) [address] [place] [address])([facility] ) TELE CONSULT [id number] 0 Notes Entered by: GILMAR VENTURA 24 Dec 2019 0734 ------- ------- ------- ------- -- MiCalauryn_ office Note EUGENE SPRINGER 12/23 Advice Assessment [address] [place] [address] Group [facility])([facility] cott Interna l Medicin e Tm) [address] [place] [address])([facility] ) TELE CONSULT [id number] 3 Notes En[address] by: ST CHANDLER BUNDY 26 Dec 2019 1229 ------- ------- ------- ------- -- Network results Physica l Therapy 020 FLAKITO SNELL 12/[address] [place] [address])([facility] Intern[facility] Medicin [facility] Tm) [address] [place] [address])([facility] ) TELE CONSULT [id number] 3 Notes Entered by: Hedy SAUCEDA 09 Jan 2020 0750 ------- ------- ------- ------- -- Shawna msg/ B/P reading s / gwp EUGENE SPRINGER 01/08 Other Not Elsewhere Classified [address] [place] [address] Group [facility])(S cott Interna l Medicin e Tm) [address] [place] [address])([facility] ) TELE CONSULT [id number] 9 Notes Entered by: Hedy SAUCEDA 01 Mar 2020 0940 ------- ------- ------- ------- -- Micare msg/ med refill x pill left / EUGENE Reyes 03/01 Medication Refill Forwarded [address] [place] [address] Travis [facility])([facility] Intern[facility] l Medicin [facility] Tm) [address] [place] [address])([facility] ) TELE CONSULT [id number] 6 Notes Entered by: RYAN BRUNO 01 Mar 2020 1112 ------- ------- ------- ------- -- Lab Order Request -Appt Feb- james Like to do Lab Work [id number] [phone] MARY ELLEN GEIGER 03/01 Other Not Elsewhere Classified [address] [place] [address] Travis [facility])([facility] cott Interna l Medicin e Tm) [address] [place] [address])([facility] ) OUTPATIENT [id number] Virtual Appt - general check up/medi cations /lab results - [id number] FLAKITO MARTINO 03/02 Released w/o Limitations [address] [place] [address] Travis [facility])([facility] cott Interna l Medicin e Tm) [address] [place] [address])([facility] ) TELE CONSULT [id number] 3 Notes Entered by: Hedy SAUCEDA 26 Mar 2020 0813 ------- ------- ------- ------- -- micare msg/ medicat ion request / EUGENE Reyes 03/26 Medication Refill Forwarded [address] [place] [address] Travis [facility])([facility] Intern[facility] Medicin [facility] Tm) [address] [place] [address] Travis [facility])([facility] ) TELE CONSULT [id number] 0 Notes Entered by: Hedy SAUCEDA 10 May 2020 0807 ------- ------- ------- ------- -- shawna msg/ med refill x 4 /gwp EUGENE SPRINGER 05/10 Medication Refill Forwarded [facility] Travis OLIVEROS ([facility])(S cott Interna l Medicin e Tm) [facility] QNHP OL DIG ASSMT&MGMT 5-10 [id number] Diagnos is: ICD-10- CM H90.A31 Mix cndct/s nrl hear loss,un i,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 WISEMANCONI JONES Magdi 10/28 [facility] HEARING AID EXAM BOTH EARS [id number] Diagnos is: ICD-10- CM H90.A31 Mix cndct/s nrl hear loss,un i,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 SEJAL OJEDA 10/30 [facility] TYMPANOMET RY & REFLEX THRESH [id number] Diagnos is: ICD-10- CM H90.A31 Mix cndct/s nrl hear loss,un i,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 SEJAL OJEDA M 10/30 [facility] Outpatient Encounter [id number] 10/30 [facility] Outpatient Encounter [id number] 10/30 [facility] HEARING SERVICE [id number] Diagnos is: ICD-10- CM H90.A31 Mix cndct/s nrl hear loss,un i,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 Outpatient Encounter [id number] 02/20 [facility] Outpatient Encounter [id number] 02/05 [facility] N Procedures Combined list of: 1) Procedures from Department of Veterans Affairs facilities going back up to thelast 18 months, not all VA non-surgical procedures are included; 2) All procedures from the Department of Defense facilities. Procedure Procedure Type Code Date Perfomer Comments Sourc e No data available for this section Ambulato ry Pharmacy QUALIFIED NONPHYSICIAN [facility] [place] PROGRAM COORDINATOR ONLINE DIGITAL ASSESSMENT AND MANAGEMENT, FOR AN [...] W/IN THE PREV 7 DAYS,USE THE INTERNET/SIMILAR [employer] NETWORK 2018 DoD TELE ASSESS & [...] PROVIDE W/IN THE PREV 7 DAYS,USE THE [employer]/SIMILAR [employer] NETWORK 2017 DoD TELE ASSESS & MGT [...] MANAGEMENT SERVICE(S) PROVIDED BY A PHARMACIST, INDIVIDUAL, [id number] WITH PATIENT, WITH ASSESSMENT AND INTERVENTION IF [...] MANAGEMENT SERVICE(S) PROVIDED BY A PHARMACIST, INDIVIDUAL, [id number] WITH PATIENT, WITH ASSESSMENT AND INTERVENTION IF [...] EDUCATION &TRAINING, PATIENT SELF-MGT QUALIFIED, NONPHYSICIAN [facility] [place] PROGRAM COORDINATOR USING STDIZED CURRICULUM, [id number] W THE PATIENT (COULD INCL CAREGIVER/FAMILY) EA 30 MIN; INDIVIDUAL PATIENT 2009 DoD EDUCATION &TRAINING, PATIENT SELF-MGT QUALIFIED, NONPHYSICIAN [facility] [place] PROGRAM COORDINATOR USING STDIZED CURRICULUM, [id number] W THE PATIENT (COULD INCL CAREGIVER/FAMILY) EA [...] FOR OXYGEN SATURATION; SINGLE DETERMINATION 2001 DoD Non-Physician Phone Call To Patient/Provider Brief (5-10min) Non-Physician Phone Call To Patient/Provider Brief (5-10min) [id number] 2018 JITENDRA ZURITA DoD Internet Med Svc Qual Nonphys Healthcare Prof Estab Patient Internet Med Svc Qual Nonphys Healthcare Prof Estab Patient [id number] 2018 MARY ELLEN WEBB DoD Non-Physician Phone Call To Patient/Provider Brief (5-10min) Non-Physician Phone Call To Patient/Provider Brief (5-10min) [id number] [facility] Disease management program, follow-up/obdulio e ment 2017 NATA CARRENO DoD Internet Med Svc Qual Nonphys Healthcare Prof Estab Patient Internet Med Svc Qual Nonphys Healthcare Prof Estab Patient [id number] 2017 JORGE FUNK V DoD Non-Physician Phone Call To Patient/Provider Brief (5-10min) Non-Physician Phone Call To Patient/Provider Brief (5-10min) [id number] 2017 JORGE SORENSEN DoD Non-Physician Phone Call To Patient/Provider Brief (5-10min) Non-Physician Phone Call To Patient/Provider Brief (5-10min) [id number] 2017 JORGE SORENSEN DoD Non-Physician Phone Call To Patient/Provider Brief (5-10min) Non-Physician Phone Call To Patient/Provider Brief (5-10min) [id number] 2017 MARY ELLEN WEBB DoD Non-Physician Phone Call To Patient/Provider Brief (5-10min) Non-Physician Phone Call To Patient/Provider Brief (5-10min) [id number] 2017 JORGE SORENSEN DoD Non-Physician Phone Call To Patient/Provider Brief (5-10min) Non-Physician Phone Call To Patient/Provider Brief (5-10min) [id number] 2017 JORGE SORENSEN DoD Non-Physician Phone Call To Patient/Provider Brief (5-10min) Non-Physician Phone Call To Patient/Provider Brief (5-10min) [id number] 2017 JORGE SORENSEN DoD Non-Physician Phone Call To Patient/Provider Brief (5-10min) Non-Physician Phone Call To Patient/Provider Brief (5-10min) [id number] [facility] Non-Physician Phone Call To Patient/Provider Brief (5-10min) Non-Physician Phone Call To Patient/Provider Brief (5-10min) [address] [facility] Non-Physician Phone Call To Patient/Provider Brief (5-10min) Non-Physician Phone Call To Patient/Provider Brief (5-10min) [id number] [facility] Med Management By Pharmacist Initial 15 Min Estab Patient Med Management By Pharmacist Initial 15 Min Estab Patient [id number] [facility] Non-Physician Phone Call To Patient/Provider Brief (5-10min) Non-Physician Phone Call To Patient/Provider Brief (5-10min) [id number] [facility] Non-Physician Phone Call To Patient/Provider Brief (5-10min) Non-Physician Phone Call To Patient/Provider Brief (5-10min) [address] [facility] Non-Physician Phone Call To Patient/Provider Brief (5-10min) Non-Physician Phone Call To Patient/Provider Brief (5-10min) [id number] [facility] Non-Physician Phone Call To Patient/Provider Brief (5-10min) Non-Physician Phone Call To Patient/Provider Brief (5-10min) 50617 2016 KELLI TRAN Med Management By Pharmacist Initial 15 Min New Patient Med Management By Pharmacist Initial 15 Min New Patient [id number] [facility] Non-Physician Phone Call To Patient/Provider Brief (5-10min) Non-Physician Phone Call To Patient/Provider Brief (5-10min) [address] [facility] Non-Physician Phone Call To Patient/Provider Brief (5-10min) Non-Physician Phone Call To Patient/Provider Brief (5-10min) [address] [facility] Non-Physician Phone Call To Patient/Provider Brief (5-10min) Non-Physician Phone Call To Patient/Provider Brief (5-10min) [id number] [facility] Non-Physician Phone Call To Patient/Provider Brief (5-10min) Non-Physician Phone Call To Patient/Provider Brief (5-10min) [id number] [facility] Non-Physician Phone Call To Patient/Provider Brief (5-10min) Non-Physician Phone Call To Patient/Provider Brief (5-10min) [address] [facility] Non-Physician Phone Call To Patient/Provider Brief (5-10min) Non-Physician Phone Call To Patient/Provider Brief (5-10min) [address] [facility] Complete Colonoscopy Complete Colonoscopy [id number] [facility] Telephone calls by a registered nurse to a disease management program member for monitoring purposes; per month [address] [facility] Non-Physician Phone Call To Patient/Provider Brief (5-10min) Non-Physician Phone Call To Patient/Provider Brief (5-10min) [id number] [facility] Non-Physician Phone Call To Pt/Provider Intermed (11-20 min) Non-Physician Phone Call To Pt/Provider Intermed (11-20 min) [id number] [facility] Non-Physician Phone Call To Patient/Provider Brief (5-10min) Non-Physician Phone Call To Patient/Provider Brief (5-10min) [address] [facility] Non-Physician Phone Call To Patient/Provider Brief (5-10min) Non-Physician Phone Call To Patient/Provider Brief (5-10min) [id number] [facility] Non-Physician Phone Call To Patient/Provider Brief (5-10min) Non-Physician Phone Call To Patient/Provider Brief (5-10min) [id number] [facility] Non-Physician Phone Call To Patient/Provider Brief (5-10min) Non-Physician Phone Call To Patient/Provider Brief (5-10min) [id number] [facility] Non-Physician Phone Call To Pt/Provider Lengthy (21-30 min) Non-Physician Phone Call To Pt/Provider Lengthy (21-30 min) [id number] 2013 CHELY PACE Determination Of Refractive State Determination Of Refractive State [id number] 2012 GUZMAN FRASER Ophthalmological Prior Patient Start Comprehensive Care Ophthalmological Prior Patient Start Comprehensive Care [id number] 2012 GUZMAN FRASER Non-Physician Phone Call To Pt/Provider Intermed (11-20 min) Non-Physician Phone Call To Pt/Provider Intermed (11-20 min) [id number] 2012 FILEMON JORGE Non-Physician Phone Call To Pt/Provider Intermed (11-20 min) Non-Physician Phone Call To Pt/Provider Intermed (11-20 min) 25035 2011 CHELY PACE [employer] Fitting Bifocals (Not For Aphakia) [employer] Fitting Bifocals (Not For Aphakia) 71321 2010 HUDSON ATWOOD Determination Of Refractive State Determination Of Refractive State 61748 2010 HUDSON ATWOOD Fundus Photography Fundus Photography 41305 2010 HUDSON ATWOOD Visual Nina Test Intermediate Examination Visual Nina Test Intermediate Examination 21625 2010 HUDSON ATWOOD Ophthalmological Prior Patient Start Comprehensive Care Ophthalmological Prior Patient Start Comprehensive Care 54099 2010 HUDSON ATWOOD Non-Physician Phone Call To Patient/Provider Brief (5-10min) Non-Physician Phone Call To Patient/Provider Brief (5-10min) [id number] 2010 MJ RENDON Telephone calls by a registered nurse to a disease management program member for monitoring purposes; per month 2010 MJ RENDON Non-Physician Phone Call To Patient/Provider Brief (5-10min) Non-Physician Phone Call To Patient/Provider Brief (5-10min) [id number] 2010 MJ RENDON Telephone calls by a registered nurse to a disease management program member for monitoring purposes; per month 2010 MJ RENDON Non-Physician Phone Call To Pt/Provider Intermed (11-20 min) Non-Physician Phone Call To Pt/Provider Intermed (11-20 min) [id number] 2009 AZEB GRACIA Patient Counseling Medical Management Individual Patient Patient Counseling Medical Management Individual Patient [id number] 2009 JUSTICE MJ Whitney Patient Counseling Medical Management Individual Patient Patient Counseling Medical Management Individual Patient [id number] 2009 MJ RENDON Whitney Non-Physician Phone Call To Patient/Provider Brief (5-10min) Non-Physician Phone Call To Patient/Provider Brief (5-10min) [id number] 2009 AZEB GRACIA Non-Physician Phone Call To Patient/Provider Brief (5-10min) Non-Physician Phone Call To Patient/Provider Brief (5-10min) 42154 2009 AZEB GRACIA Diabetic indicator; retinal eye exam, dilated, bilateral 2009 NIKO FRASER Visual Nina Test Intermediate Examination Visual Nina Test Intermediate Examination 96331 2009 NIKO FRASER [employer] Fitting Bifocals (Not For Aphakia) [employer] Fitting Bifocals (Not For Aphakia) 53363 2009 NIKO FRASER Determination Of Refractive State Determination Of Refractive State 33641 2009 NIKO FRASER Ophthalmological New Patient Start Comprehensive Care Ophthalmological New Patient Start Comprehensive Care 19809 2009 NIKO FRASER Physical Medicine Physical Therapy Re-Evaluation Physical Medicine Physical Therapy Re-Evaluation 44826 2008 MARIA E HARPER Modalities Ultrasound Modalities Ultrasound 02425 2008 MC MOLINA Modalities Ultrasound Modalities Ultrasound 56430 2008 JUAN MCNEIL Modalities Ultrasound Modalities Ultrasound 83037 2008 MC MOLINA Modalities Ultrasound Modalities Ultrasound [address] [facility] Modalities Ultrasound Modalities Ultrasound 24729 2008 MC MOLINA Physical Medicine Physical Therapy Re-Evaluation Physical Medicine Physical Therapy Re-Evaluation 15161 2008 MARIA E HARPER Modalities Heat Hot Packs Modalities Heat Hot Packs 01788 2008 MC MOLINA Modalities Traction Modalities Traction 52761 2008 MC MOLINA Modalities Traction Modalities Traction 94895 2008 JUAN MCNEIL DoD Modalities Heat Hot Packs Modalities Heat Hot Packs 75887 2008 JUAN MCNEIL DoD Modalities Traction Modalities Traction 53625 2008 JESSE MC Rafa Olson Modalities Heat Hot Packs Modalities Heat Hot Packs [address] [facility] Modalities Traction Modalities Traction [address] [facility] Modalities Heat Hot Packs Modalities Heat Hot Packs [address] [facility] Modalities Traction Modalities Traction 68991 2008 JUAN MCNEIL DoD Modalities Heat Hot Packs Modalities Heat Hot Packs [address] [facility] Modalities Heat Hot Packs Modalities Heat Hot Packs [address] [facility] Modalities Traction Modalities Traction 9[address] [facility] Physical Therapy: ___ Se ion Segments, 15 Minutes Each Physical Therapy: ___ Session Segments, 15 Minutes Each [address] [facility] Physical Medicine Physical Therapy Evaluation Physical Medicine Physical Therapy Evaluation [address] [facility] Medical Nutrition Therapy Group (2 or More Individual(s)) Medical Nutrition Therapy Group (2 or More Individual(s)) [address] [facility] Dermatological Surgery Cryotherapy Dermatological Surgery Cryotherapy 35772 2006 GALO ANSARI cryotherapy x 4 on [...] Method Second Through 14 2004 TEE BYRNE Social History Combined list of available smoking, tobacco, and other social history from Department of Defense and Veterans Affairs facilities. 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 Additional future care activities may be listed in the Assessment and Plan section. Date/Time Care Activity Care Activity Detail Facili ty 03/17/2025 AMBULATORY - MEDICINE AMBULATORY - MEDICI [facility] Functional Status Combined list of recent functional and cognitive assessments recorded at Department of Defense and Veterans Affairs (VA).VA Functional [place] Measurement (FIM) Scale: 1 = Total Assistance (Subject = 0% +), 2 = Maximal Assistance (Subject = 25% +), 3 = Moderate Assistance (Subject = 50% +), 4 = Minimal Assistance (Subject = 75% +), 5 = Supervision, 6 = Modified [place] (Device), 7 = Complete [place] (Timely, Safely). Assessment Date/Time Source Assessment Type Assessment Skill Assessment Score Assessment Details No data available for this section
--- OUTSIDE RECORDS SUMMARY | 2025-02-06 08:54 | XMS_ITS | Clinical Summary ---
Author Organization [facility] Address [address] [place] [address] Care Team Providers Care Building Materials Sales Attendant Name Role Phone Bhargavi Tena MD Primary Care Provider [phone] Social History Tobacco Use Types Packs/Day Years [...] this topic Insurance [employer] MEDICARE Care Teams Building Materials Sales Attendant Relationship Specialty Start Date End Date Bhargavi Tena MD [address] [facility] [address] [place] [address] PCP - General FAMILY PRACTICE 09/20/23
--- OUTSIDE RECORDS SUMMARY | 2025-02-06 08:55 | XMS_ITS | Encounter Summary ---
Author Organization [facility] Address [address] [facility] [place] [address] Care Team Providers Care Porter Bath Name Role Phone Unavailable Primary Care Provider Unavailabl e Encounter Details Date Type Department Care Team (Late st Contact Info) Description 08/04/2019 Lab Requisition [facility] DermPath Lab [address] [facility], [place] [address] Gwen Gutiérrez MD [address] 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 Gender Identity Not on file Sexual Orientation Not on file documented as of this encounter Plan of Treatment Not on file documented as of this encounter Procedures Procedure Name Priority Date/Time Associated Diagnosis Comments DERMATOPATHOLOGY Routine 08/01/2019 12:0 0 AM LAY OUT AND DETAIL DRAFTER documented in this encounter Results * DERMATOPATHOLOGY (08/01/2019 12:00 AM LAY OUT AND DETAIL DRAFTER) Case Report Dermatopathology Report Case: [id number] Authorizing Provider: Gwen Gutiérrez MD Collected: 08/01/2019 12:00 AM Ordering Location: [facility] DermPath Lab Received: 08/04/2019 07:48 AM Pathologist: Vincent Hubbard MD Specimen: Skin, right sup chest 0 1:20 PM [facility] DERMATOPATHOLOGY LABORATORY Final Diagnosis Specimen A. SKIN, right sup chest: SEBORRHEIC KERATOSIS, IRRITATED (L82.0) 0 1:20 PM [facility] DERMATOPATHOLOGY LABORATORY at [address] LAY OUT AND DETAIL DRAFTER Clinical History MM vs SK. Irreg color. 0 1:20 PM [facility] DERMATOPATHOLOGY LABORATORY Gross Description Specimen A: Received is one formalin filled container labeled with the patient's name and designated right sup chest. The specimen consists of a shave measuring 39e4r0pb. Jar 0. 0 1:20 PM [facility] DERMATOPATHOLOGY LABORATORY Microscopic Description Specimen A. SKIN, right sup chest: There is acanthosis consisting of fairly uniform squamous cells with eosinophilic cytoplasm and squamous eddies. 0 1:20 PM [facility] DERMATOPATHOLOGY LABORATORY Disclaimer An external and internal positive and negative controls are appropriate for the histochemical, immunohistochemical and immunofluorescence stain(s) in this case (if any), except where stated explicitly. The performance characteristics of the stain(s) cited in this report were developed and its performance characteristic determined by the Dermatopathology Laboratory at [facility], directed by Dr. Sandi Hubbard. These tests need not be, and therefore are not, approved by the [place] Food and Drug Administration. The tests are used for clinical purposes. Billing Codes Specimen Charges Stain Charges 22055 1 0 1:20 PM [facility] DERMATOPATHOLOGY LABORATORY Embedded Images 0 1:20 PM [facility] DERMATOPATHOLOGY LABORATORY Pathology/Cytolog y TISSUE SPECIMEN FROM SKIN / Unknown 08/01/2019 08/04/2019 7:48 AM [facility] us Gwen Gutiérrez MD LAB - PATHOLOGY/CYTOLOGY OR DERABLES Final Result DERMATOPATHOLOGY LABORATORY [facility] - Department of Dermatology [address] [place] [address], 5th [place] [address], [facility] [phone] documented in this encounter Visit Diagnoses Not on filedocumented in this encounter
--- OUTSIDE RECORDS SUMMARY | 2025-02-06 08:55 | XMS_ITS | Encounter Summary ---
Author Organization [facility] Address [address] [place] [address] Phone Care Team Providers Care Naphthol Soaping Machine Operator Name Role Phone Lora Bajwa MD Unavailable + [phone] Bhargavi Tena MD Primary Care Provider Encounter Details Date Type Department Care Team (Late st Contact Info) Description 05/26/2022 Orders Only [facility] Scanning, Provider Social History Tobacco Use Types Packs/Day Years Used Date Smoking Tobacco: Former Cigarettes Q uit: 12/19/1993 Smokeless Tobacco: Never Sex and Gender Information Value Date Recorded Sex Assigned at Not on file 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
--- OUTSIDE RECORDS SUMMARY | 2025-02-06 08:55 | XMS_ITS | Encounter Summary ---
Author Organization [facility] Address [address] [place] [address] Care Team Providers Care Specifications Checker Name Role Phone Unavailable Primary Care Provider Unavailabl e Encounter Details Date Type Department Care Team (Late st Contact Info) Description 08/29/2023 Lab Requisition [facility] - DermPath Lab [address] [facility], [place] [address] Johanna Wagner MD [address] [facility] 3 [place] [address] Social History Tobacco Use Types Packs/Day Years Used Date Smoking Tobacco: Former Cigarettes Q uit: 06/22/1993 Alcohol Use Standard Drinks/Week Comments No 0 (1 standard drink = 0.6 oz pur e alcohol) Sex and Gender Information Value Date Recorded Sex Assigned at Not on file 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 Gender Identity Not on file Sexual Orientation Not on file documented as of this encounter Plan of Treatment Not on file documented as of this encounter Procedures Procedure Name Priority Date/Time Associated Diagnosis Comments DERMATOPATHOLOGY Routine 08/29/2023 8:34 AM CDT documented in this encounter Results * DERMATOPATHOLOGY (08/29/2023 8:34 AM CDT) Case Report Dermatopathology Report Case: [id number] Authorizing Provider: Johanna Wagner MD Collected: 08/29/2023 08:34 AM Ordering Location: [facility] - Received: 08/30/2023 10:49 [...] characteristic determined by the Dermatopathology Laboratory at [facility], directed by Dr. Sandi Hubbard. These tests need not be, and therefore are not, approved by the [place] Food and Drug Administration. The tests are used for clinical purposes. Billing Codes Specimen Charges Stain Charges 85712 50065 1 1 3:33 PM CDT DERMATOPATHOLOGY LABORATORY [...] DERMATOPATHOLOGY LABORATORY [facility] - Department of Dermatology [facility] Specialized Medicine [address] [place] [address], [address]rd Floor [address] [phone] documented in this encounter Visit Diagnoses Not on filedocumented in this encounter
--- OUTSIDE RECORDS SUMMARY | 2025-02-06 08:55 | XMS_ITS | Encounter Summary ---
Author Organization [facility] Address [address] [place] [address] Phone Care Team Providers Care Dowel Pointer Name Role Phone Lora Bajwa MD Unavailable + [phone] Bhargavi Tena MD Primary Care Provider Encounter Details Date Type Department Care Team (Late st Contact Info) Description 08/16/2021 Orders Only [facility] Scanning, Provider Social History Tobacco Use Types Packs/Day Years Used Date Smoking Tobacco: Former Cigarettes Q uit: 12/19/1993 Smokeless Tobacco: Never Sex and Gender Information Value Date Recorded Sex Assigned at Not on file 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
--- OUTSIDE RECORDS SUMMARY | 2025-02-06 08:55 | XMS_ITS | Encounter Summary ---
Author Organization [facility] Address [address] [facility] [place] [address] Care Team Providers Care Warehouse Associate Driver Name Role Phone Unavailable Primary Care Provider Unavailabl e Encounter Details Date Type Department Care Team (Late st Contact Info) Description 10/27/2024 Lab Requisition [facility] Physician [facility] - DermPath Lab [address] [facility], [place] [address] Johanna Wagner MD [address] [facility] 3 [place] [address] Social History Tobacco Use Types Packs/Day Years Used Date Smoking Tobacco: Former Cigarettes Q uit: 06/22/1993 Alcohol Use Standard Drinks/Week Comments No 0 (1 standard drink = 0.6 oz pur e alcohol) Sex and Gender Information Value Date Recorded Sex Assigned at Not on file 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 Gender Identity Not on file Sexual Orientation Not on file documented as of this encounter Plan of Treatment Not on file documented as of this encounter Procedures Procedure Name Priority Date/Time Associated Diagnosis Comments DERMATOPATHOLOGY Routine 10/27/2024 8:24 AM CDT documented in this encounter Results * DERMATOPATHOLOGY (10/27/2024 8:24 AM CDT) Case Report Dermatopathology Report Case: [id number] Authorizing Provider: Johanna Wagner MD Collected: 10/27/2024 08:24 AM Ordering Location: [facility] - Received: 10/27/2024 01:08 [...] auricular.The specimen consists of an ellipse measuring 40f21v2 mm and is oriented with the suture/notch [...] characteristic determined by the Dermatopathology Laboratory at [facility], directed by Dr. Sandi Hubbard. These tests need not be, and therefore are not, approved by the [place] Food and Drug Administration. The tests are used for clinical purposes. Billing Codes Specimen Charges Stain Charges 77456 1 5 12:44 PM CDT DERMATOPATHOLOGY LABORATORY Embedded Images 12:44 PM CDT DERMATOPATHOLOGY LABORATORY Pathology/Cytolo gy TISSUE SPECIMEN FROM SKIN / Unknown 10/27/2024 8:24 AM CDT 10/27/2024 1:08 PM CDT us Johanna Wagner MD LAB - PATHOLOGY/CYTOLOGY ORD ERABLES Final Result DERMATOPATHOLOGY LABORATORY [facility] - Department of Dermatology [facility] Specialized Medicine [address] [place] [address], [address] Floor [address] [phone] documented in this encounter Visit Diagnoses Not on filedocumented in this encounter
--- OUTSIDE RECORDS SUMMARY | 2025-02-06 08:55 | XMS_ITS | Encounter Summary ---
Author Organization [facility] Address [address] [place] [address] Phone Care Team Providers Care Shiatsu Therapist Name Role Phone Lora Bajwa MD Unavailable + [phone] Bhargavi Tena MD Primary Care Provider Encounter Details Date Type Department Care Team (Late st Contact Info) Description 11/16/2021 Orders Only [facility] Scanning, Provider Social History Tobacco Use Types Packs/Day Years Used Date Smoking Tobacco: Former Cigarettes Q uit: 12/19/1993 Smokeless Tobacco: Never Sex and Gender Information Value Date Recorded Sex Assigned at Not on file 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
--- OUTSIDE RECORDS SUMMARY | 2025-02-06 08:55 | XMS_ITS | Clinical Summary ---
Author Organization [facility] Address [address] [place] [address] Care Team Providers Care Director Of Oncology Name Role Phone Unavailable Primary Care Provider Unavailabl e Source Comments [facility],non-owned Affiliates and Associated Physician Practices is amultiple site organization consisting of ambulatory clinics and hospital sitesin [place], [place], [place] and [place]. This disclosure is being madepursuant to the Care Everywhere program and may not contain all information available regarding this patient. Last updated 18.[facility] Space [employer]encil Allergies No known active allergies Medications * [...] on file Legal Sex Male 4:48 PM SUMMER ASSOCIATE Gender Identity Not on file Sexual Orientation Not on file Last Filed Vital Signs Vital Sign Reading Time Taken Comments Blood Pressure 139/83 05/22/2013 12:57 PM SUMMER ASSOCIATE Pulse 75 05/22/2013 12:57 PM SUMMER ASSOCIATE Temperature 36.9 C (98.4 F) 05/22/2013 12:57 PM SUMMER ASSOCIATE Respiratory Rate 16 05/22/2013 12:57 PM SUMMER ASSOCIATE Oxygen Saturation 96% 05/22/2013 12:57 PM SUMMER ASSOCIATE Inhaled Oxygen Concentration - - Weight 116.1 kg (256 lb) 05/22/2013 8:02 AM SUMMER ASSOCIATE Height 182.9 cm (6') 05/22/2013 8:02 AM SUMMER ASSOCIATE Body Mass Index 34.72 05/22/2013 8:02 AM SUMMER ASSOCIATE Plan of Treatment Health Maintenance Due Date [...] patient's age to complete this topic Insurance MEDICARE MEDICARE
--- OUTSIDE RECORDS SUMMARY | 2025-02-06 08:55 | XMS_ITS | Encounter Summary ---
Author Organization [facility] Address [address] [facility] [place] [address] Care Team Providers Care Web Retailer Name Role Phone Unavailable Primary Care Provider Unavailabl e Encounter Details Date Type Department Care Team (Late st Contact Info) Description 02/14/2018 Lab Requisition [facility] Care DermPath Lab [address] [facility] [place] [address] Gwen Gutiérrez MD [address] [facility] 3 [place] [address] Social History Tobacco Use Types Packs/Day Years Used Date Smoking Tobacco: Former Cigarettes Q uit: 06/22/1993 Alcohol Use Standard Drinks/Week Comments No 0 (1 standard drink = 0.6 oz pur e alcohol) Sex and Gender Information Value Date Recorded Sex Assigned at Not on file Legal 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 The margins are inked green. Jar 0. [facility] Dermatopathology Laboratory performed the technical component [...] characteristic determined by the Dermatopathology Laboratory at [facility]. These tests need not be, and therefore are not, approved by the [place] Food and Drug Administration. The tests are used for clinical purposes. 1:[address] [facility] DERMATOPATHOLOGY LABORATORY at 1319 CDT Pathology/Cytolog y TISSUE SPECIMEN FROM SKIN / Unknown 02/12/2018 02/14/2018 6:14 AM CDT Gwen Gutiérrez MD LAB - PATHOLOGY/CYTOLOGY OR DERABLES Final Result DERMATOPATHOLOGY LABORATORY [facility] - Department of Dermatology [address] [place] [address], 5th [place] [address], [facility] [phone] documented in this encounter Visit Diagnoses Not on filedocumented in this encounter
--- OUTSIDE RECORDS SUMMARY | 2025-02-06 08:55 | XMS_ITS | Encounter Summary ---
Author Organization [facility] Address [address] [place] [address] Phone Care Team Providers Care Regulatory Lead Name Role Phone Mk Lewis MD Primary Care Provider [phone] Lora Bajwa MD Primary Care Provider Lora Bajwa MD Unavailable [phone] Amanda Villa DO Primary Care Provider [phone] Bhargavi Tena MD Primary Care Provider Encounter Details Date Type Department Care Team (Late st Contact Info) Description 11/25/2015 Orders Only [facility] Scanning, Provider Social History Tobacco Use Types Packs/Day Years Used Date Smoking Tobacco: Never Assessed Sex and Gender Information Value Date Recorded Sex Assigned at Not on file 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 Gender Identity Male 02/26/2020 6:57 AM [...] on filedocumented in this encounter Care Teams Regulatory Lead Relationship Specialty Start Date End Date Mk Lewis MD PCP - General 12/05/16 03/06/17 Lora Bajwa MD [address] [facility], [place] [address] PCP - General 03/07/17 12/02/19 Amanda Villa DO [address] [facility], [place] [address] PCP - General 12/03/19 11/29/20 Bhargavi Tena MD [address] [facility] 120 [place], [place] [address] PCP - General Family Medicine 11/30/20 Lora Bajwa MD [address] [facility], [place] [address] Referring Physician Family Practice 11/20/18 documented as of this encounter
--- OUTSIDE RECORDS SUMMARY | 2025-02-06 08:55 | XMS_ITS | Encounter Summary ---
Author Organization [facility] Address [address] [facility] [place] [address] Care Team Providers Care Machine Tool Electrician Name Role Phone Unavailable Primary Care Provider Unavailabl e Encounter Details Date Type Department Care Team (Late st Contact Info) Description 10/13/2024 Lab Requisition [facility] Physician [facility] - DermPath Lab [address] [facility], [place] [address] Johanna Wagner MD [address] [facility] 3 [place] [address] Social History Tobacco Use Types Packs/Day Years Used Date Smoking Tobacco: Former Cigarettes Q uit: 06/22/1993 Alcohol Use Standard Drinks/Week Comments No 0 (1 standard drink = 0.6 oz pur e alcohol) Sex and Gender Information Value Date Recorded Sex Assigned at Not on file 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 Bx Proven BCC B. Non Healing [place] Papule R/O BCC 5:12 PM CDT DERMATOPATHOLOGY LABORATORY Gross Description Specimen A: Received is one formalin filled container labeled with the patient's name and designated right neck.The specimen consists of an ellipse measuring 74b38q7 mm and is oriented with the suture/notch [...] characteristic determined by the Dermatopathology Laboratory at [facility], directed by Dr. Sandi Hubbard. These tests need not be, and therefore are not, approved by the [place] Food and Drug Administration. The tests are used for clinical purposes. Billing Codes Specimen Charges Stain Charges 65360 69286 1 1 5 5:12 PM CDT DERMATOPATHOLOGY LABORATORY Embedded Images 5 5:12 PM CDT DERMATOPATHOLOGY LABORATORY Pathology/Cytology TISSUE SPECIMEN FROM SKIN / Unknown 10/13/2024 8:59 AM CDT 10/14/2024 7:25 AM CDT Miscellaneous samples (specimen) TISSUE SPECIMEN FROM SKIN / Unknown 10/13/2024 8:59 AM CDT 10/14/2024 7:25 AM CDT us Johanna Wagner MD LAB - PATHOLOGY/CYTOLOGY ORD ERABLES Final Result DERMATOPATHOLOGY LABORATORY [facility] - Department of Dermatology [facility] Medicine [address] [place] [address], [address]rd [place] [address], [facility] [phone] documented in this encounter Visit Diagnoses Not on filedocumented in this encounter
--- OUTSIDE RECORDS SUMMARY | 2025-02-06 08:55 | XMS_ITS | Encounter Summary ---
Author Organization [facility] Address [address] [place] [address] Phone Care Team Providers Care Rod Mill Operator Name Role Phone Lora Bajwa MD Unavailable [phone] Bhargavi Tena MD Primary Care Provider Encounter Details Date Type Department Care Team (Late st Contact Info) Description 02/05/[address] 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 Gender Identity Male 02/26/2020 6:57 AM CDT Sexual Orientation Straight 02/26/2020 6: 57 AM CDT documented as of this encounter Ordered Prescriptions Prescription Sig Dispense Quantity Refills Last Filled Start Date End Date ciprofloxacin-dexA METHasone (CIPRODEX) otic suspension Administer 4 drops into the right ear 2 (two) times a day 7.5 mL 3 02/05/2025 documented in this encounter Plan of Treatment Not on file documented as of this encounter Visit Diagnoses Not on filedocumented in this encounter Care Teams Rod Mill Operator Relationship Specialty Start Date End Date Bhargavi Tena MD [address] [facility] [address] [place] [address] PCP - General Family Medicine 11/30/20 Lora Bajwa MD [address] [place] [address] Referring Physician Family Practice 11/20/18 documented as of this encounter
--- OUTSIDE RECORDS SUMMARY | 2025-02-06 08:55 | XMS_ITS | Encounter Summary ---
Author Organization [facility] Address [address] [place] [address] Phone Care Team Providers Care Structural Engineering Drafting Officer Name Role Phone Lora Bajwa MD Unavailable + [phone] Bhargavi Tena MD Primary Care Provider Encounter Details Date Type Department Care Team (Late st Contact Info) Description 03/02/2021 Orders Only [facility] Scanning, Provider Social History Tobacco Use Types Packs/Day Years Used Date Smoking Tobacco: Former Cigarettes Q uit: 12/19/1993 Smokeless Tobacco: Never Sex and Gender Information Value Date Recorded Sex Assigned at Not on file 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
--- OUTSIDE RECORDS SUMMARY | 2025-02-06 08:56 | XMS_ITS | Encounter Summary ---
Author Organization [facility] Address [address] [place] [address] Care Team Providers Care Drying Machine Receiver Name Role Phone Unavailable Primary Care Provider Unavailabl e Encounter Details Date Type Department Care Team (Late st Contact Info) Description 09/03/2024 Lab Requisition [facility] - DermPath Lab [address] [facility], [place] [address] Johanna Wagner MD [address] [facility] 3 [place] [address] Social History Tobacco Use Types Packs/Day Years Used Date Smoking Tobacco: Former Cigarettes Q uit: 06/22/1993 Alcohol Use Standard Drinks/Week Comments No 0 (1 standard drink = 0.6 oz pur e alcohol) Sex and Gender Information Value Date Recorded Sex Assigned at Not on file 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 Male 4:48 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 Billing Codes Specimen Charges Stain Charges 46178 92418 1 1 1:18 PM CDT DERMATOPATHOLOGY LABORATORY [...] DERMATOPATHOLOGY LABORATORY [facility] - Department of Dermatology Specialized Medicine [address] [place] [address], [address] [phone] documented in this encounter Visit Diagnoses Not on filedocumented in this encounter
--- OUTSIDE RECORDS SUMMARY | 2025-02-06 08:56 | XMS_ITS | Clinical Summary ---
Author Organization [facility] 1 Address [address] [place] [address] Care Team Providers Care Sound Effects Person Name Role Phone Lora Bajwa MD Unavailable [phone] Bhargavi Tena MD Primary Care Provider Allergies [...] mouth daily 90 tablet 3 5 Active cephalexin (KEFLEX) 500 mg capsule TAKE 1 CAPSULE BY MOUTH EVERY 6 HOURS FOR 7 DAYS 5 Active omeprazole (PriLOSEC) 40 mg capsule Active tiZANidine (ZANAFLEX) 2 mg tablet Take 1 tablet (2 mg total) by mouth 3 (three) times a day as needed 5 Active traMADoL (ULTRAM) 50 mg tablet Take 1 tablet (50 mg total) by mouth 2 (two) times a day as needed for pain 5 Active traMADoL (ULTRAM) 50 mg tablet Take 1 tablet (50 mg total) by mouth 2 (two) times a day as needed for pain 5 Active triamcinolone (KENALOG) 0.1 % cream APPLY TOPICALLY TO THE AFFECTED AREA TWICE DAILY FOR 7 DAYS 5 Active ciprofloxacin-d exAMETHasone (CIPRODEX) otic suspension Administer 4 drops into the right ear 2 (two) times a day 7.5 mL 3 5 Active Active Problems Problem Noted Date Diagnosed Date Abdominal pain, acute, right lower quadrant 01/17 Abnormal PFT 02/05/2025 Abdominal pain, LLQ 02/05/2025 Acute diverticulitis 02/05/2025 Allergic reaction to insect sting 02/05/2025 Acute myringitis, right ear 02/05/2025 Anxiety 02/05/2025 Compression fracture of L4 vertebra 02/05/2025 Community acquired pneumonia 02/05/2025 COVID-19 virus infection 02/05/2025 Diet-controlled diabetes mellitus 02/05/2025 Diverticulitis of colon with perforation 025 Overview (02/05/2025): January 2024 Diverticulosis 02/05/2025 Dysphagia 02/05/2025 Erectile disorder due to medical condition in carmelo le 02/05/2025 Hearing loss of both ears 02/05/2025 Immunocompromised patient 02/05/2025 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 Left arm pain 02/05/2025 Left shoulder pain 02/05/2025 Leukocytosis 02/05/2025 LPRD (laryngopharyngeal reflux disease) 02/06/20 Osteopenia 02/05/2025 Partial thickness tear of left rotator cuff 01/17 Perianal fissure 02/05/2025 PND (post-nasal drip) 02/05/2025 Prediabetes 02/05/2025 Sacro-iliac pain 02/05/2025 SOB (shortness of breath) 02/05/2025 Spondylosis, cervical 02/05/2025 Upper respiratory tract infection 02/05/2025 Wears hearing aid 02/05/2025 Wheezing 02/05/2025 Age-related cataract of both eyes 11/14/2023 Allergic [...] Encounters Date Type Department Care Team Description 02/05/2025 8:40 AM CDT Office Visit [facility] Medicine Otolaryngology [address] [facility] [address], [address] [place] [address] Samira Bruce, ROS Chronic atticoantral suppurative otitis media, right ear (Primary Dx); Mixed hearing loss, bilateral; Acute myringitis of ear, right 02/05/2025 Orders Only [facility] [address] [facility], [address] [place] [address] Tiffany WebsterSLY 01/09/2025 11:00 AM CDT [facility] [address] [facility] 2nd [address] [place] [address] Rheumatoid arthritis of 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 (HCC) (Primary Dx) 01/09/2025 10:25 AM CDT - 01/09/2025 11:59 PM CDT Hospital Encounter [address] [address] High risk medication use Discharge Disposition: Discharge to home or self care 12/11/2024 Telephone [facility] Medicine Rheumatology [address] [facility] 2nd Floor [address] [place] [address] Chandana Maurice from Last 3 Months Surgical History Surgery Date Site/Laterality Comments INGUINAL HERNIA REPAIR Inguinal Hernia Repair - (Added by Conv) REFRACTIVE SURGERY ROOT CANAL 01/16/2019 - [...] on file 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 Gender Identity Male 02/26/2020 6:57 AM CDT Sexual Orientation Straight 02/26/2020 6: 57 AM CDT Obstetrics History Last Filed Vital Signs Vital Sign Reading Time Taken Comments Blood Pressure 143/90 08/20/2024 9:59 AM QUILTING MACHINE HELPER Pulse 72 08/20/2024 9:59 AM QUILTING MACHINE HELPER Temperature 36.3 C (97.4 F) 08/20/2024 9:59 AM QUILTING MACHINE HELPER Respiratory Rate - - Oxygen Saturation 97% 08/20/2024 9:59 AM QUILTING MACHINE HELPER Inhaled Oxygen Concentration - - Weight 126.5 kg (278 lb 12.8 oz) 08/20/2024 9:59 AM QUILTING MACHINE HELPER Height 182.9 cm (6') 08/20/2024 9:59 AM QUILTING MACHINE HELPER Body Mass Index 37.81 08/20/2024 9:59 AM QUILTING MACHINE HELPER Plan of Treatment Health Maintenance Due Date Last Done Comments Albumin Creatinine Ratio, Urine 1955 Colon Cancer Screening-Colonoscopy 1955 Depression Screening 1955 Fall Risk Assessment 1955 Hemoglobin A1C 1955 Hepatitis C Screening 1955 Prostate Cancer Screening-PSA 1955 Dilated Eye Exam 1955 Foot Exam 1955 Lipid Panel 1955 Abdominal Aortic Aneurysm (A AA) Screen 2020 10/17/2016 Well Visit 65+ 2020 Influenza Vaccine (#1) 2025 , 01/31/2023, 01/17/2023, Additional history exists eGFR 01/09/2026 01/09/2025, 05/0 07/2024, 06/20/2024, Additional history exists Pneumococcal vaccine 65+ (4 of 4 - PCV20 or PCV21) 02/19/2029 02/20/2024, 05/18/2020, 03/18/2015, Additional history exists DTaP/Tdap/Td Vaccine (4 - Td or Tdap) 02/19/2034 02/20/2024, 08/28/2013, 03/17/2011 Zoster Vaccine Completed 10/03/2022, 04/19, 01/10/2017, Additional history exists Hepatitis B Screening Completed 01/31/2023 Procedures Procedure Name Priority Date/Time Associated Diagnosis Comments EGFR Routine 01/09/2025 10:25 AM CDT High risk medication use BILIRUBIN, DIRECT Routine 01/09/2025 10: 25 AM CDT High risk medication use DIFFERENTIAL AUTO Routine 01/09/2025 10: 25 AM CDT High risk medication use CBC WITH AUTO DIFFERENTIAL Routine 01/09/2025 10:25 AM CDT High risk medication use COMPREHENSIVE METABOLIC PANEL Routine 01/09/2025 10:25 AM CDT High risk medication use CT ABDOMEN PELVIS WO CONTRAST Routine 10/17/2016 6:59 AM CDT from Last 3 Months or Most Recently Relevant to Health Maintenance Results * eGFR (01/09/2025 10:25 AM CDT) eGFR 90 >=60 mL/min/1. 73 m2 Comment: Interpretive Data [...] interpretive data was last reviewed 2021. Blood 01/09/2025 10:2 5 AM CDT 01/09/2025 2:12 PM CDT us Malina Renteria NP LAB BLOOD ORDERABLES Final Result [facility] [address] [facility] Department [place] [address] * Differential, auto (01/09/2025 10:25 AM CDT) Neutrophil abs 2.89 1.50 - 6.50 K/cumm Imm gran abs 0.02 0.00 - 0.10 K/cumm [facility] Lymphocyte abs 2.14 0.80 - 3.30 K/cumm [facility] Monocyte abs 0.44 0.20 - 0.80 K/cumm [facility] Eosinophil abs 0.09 0.00 - 0.50 K/cumm [facility] Basophil abs 0.04 0.00 - 0.10 K/cumm [facility] Neutrophil pct 51.4 % [facility] Comment: Interpretive Data Percent cell count reference ranges are not reported, since discordance with absolute values may lead to misinterpretation of CBC data. Current Interpretive Data was last revised on 2017. Imm gran pct 0.4 % [facility] Comment: Interpretive Data Percent cell count reference ranges are not reported, since discordance with absolute values may lead to misinterpretation of CBC data. Current Interpretive Data was last revised on 2017. Lymphocyte pct 38.1 % [facility] Comment: Interpretive Data Percent cell count reference ranges are not reported, since discordance with absolute values may lead to misinterpretation of CBC data. Current Interpretive Data was last revised on 2017. Monocyte pct 7.8 % [facility] Comment: Interpretive Data Percent cell count reference ranges are not reported, since discordance with absolute values may lead to misinterpretation of CBC data. Current Interpretive Data was last revised on 2017. Eosinophil pct 1.6 % [facility] Comment: Interpretive Data Percent cell count reference ranges are not reported, since discordance with absolute values may lead to misinterpretation of CBC data. Current Interpretive Data was last revised on 2017. Basophil pct 0.7 % [facility] Comment: Interpretive Data Percent cell count reference ranges are not reported, since discordance with absolute values may lead to misinterpretation of CBC data. Current Interpretive Data was last revised on 2017. Blood 01/09/2025 10:2 5 AM CDT 01/09/2025 2:03 PM CDT us Malina Renteria DEALER COMPLIANCE REPRESENTATIVE LAB BLOOD ORDERABLES Final Result [facility] [address] [facility] Department [place] [address] * CBC with auto differential (01/09/2025 10:25 AM CDT) WBC 5.62 3.80 - 9.90 K/cumm Hgb 14.8 13.0 - 17.5 g/dL [facility] Hct 44.6 38.9 - 50.3 % [facility] Plt 252 150 - 400 K/cumm [facility] MPV 10.3 9.1 - 12.3 fL [facility] RBC 4.68 4.30 - 5.80 M/cumm [facility] MCV 95.3 81.3 - 96.4 fL [facility] MCH 31.6 27.1 - 33.3 pg [facility] MCHC 33.2 32.3 - 35.7 g/dL [facility] RDW CV 13.5 11.1 - 14.9 % [facility] RDW SD 46.5 35.7 - 48.1 fL [facility] NRBC abs 0.00 0.00 - 0.01 K/cumm [facility] Blood 01/09/2025 10:2 5 AM CDT 01/09/2025 2:03 PM CDT Malina Renteria NP LAB BLOOD ORDERABLES Final Result Performing Organization Address City/[facility]/ZIP Co de Phone Number [facility] [place] [address] * Bilirubin, direct (01/09/2025 10:25 AM CDT) [facility] Bilirubin, direct 0.2 0.1 - 0.3 mg/dL Blood 01/09/2025 10:2 5 AM CDT 01/09/2025 2:03 PM CDT Malina Renteria DEALER COMPLIANCE REPRESENTATIVE LAB BLOOD ORDERABLES Final Result [facility] [place] [address] * Comprehensive metabolic panel (01/09/2025 10:25 AM CDT) Sodium 144 135 - 145 mmol/L Potassium, pl 4.3 3.3 - 4.9 mmol/L [facility] Chloride 106 97 - 110 mmol/L [facility] CO2 28 22 - 32 mmol/L [facility] Anion gap 10 2 - 15 mmol/L [facility] BUN 12 6 - 25 mg/dL [facility] Creatinine 0.92 0.80 - 1.30 mg/dL [facility] Glucose 174 70 - 199 mg/dL [facility] Comment: Interpretive Data Fasting glucose >/= [...] interpretive data was last revised 2022. Calcium 9.2 8.5 - 10.3 mg/dL [facility] Bilirubin, total 0.6 0.1 - 1.2 mg/dL [facility] Protein, pl 7.2 6.5 - 8.5 g/dL [facility] Albumin 4.1 3.5 - 5.0 g/dL [facility] Alk phos 80 40 - 130 Units/L [facility] ALT 28 7 - 55 Units/L [facility] AST 33 10 - 50 Units/L [facility] Blood 01/09/2025 10:2 5 AM CDT 01/09/2025 2:03 PM CDT Malina Renteria DEALER COMPLIANCE REPRESENTATIVE LAB BLOOD ORDERABLES Final Result [facility] [address] [facility] Department [place] [address] * CT Abdomen Pelvis WO Contrast (10/17/2016 [...] HL:hl 07:47 AM 07:47 AM MHE [EOD] us Asad Woody MD IMG CT PROCEDURES Final R esult from Last 3 Months or Most Recently Relevant to Health Maintenance Insurance MEDICARE [employer] [facility] [employer] MEDICARE [facility] MEDICARE [facility] Advance Directives For more information, please contact: [phone] Documents on File Type Date Recorded Patient Homicide Squad Commanding Officer Expl anation ADVANCE DIRECTIVE 12/28/2011 12:00 AM [employer] INSTRUCTOR FINANCIAL/MEDICAL Care Teams Sound Effects Person Relationship Specialty Start Date End Date Bhargavi Tena MD [address] [address] [facility] [address] [place] [address] PCP - General Family Medicine 11/30/20 Lora Bajwa MD [address] [place] [address] Referring Physician Family Practice 11/20/18
--- OUTSIDE RECORDS SUMMARY | 2025-02-06 08:56 | XMS_ITS | Encounter Summary ---
Author Organization [facility] Address [address] [place] [address] Phone Care Team Providers Care Environmental Health Technologist Name Role Phone Lora Bajwa MD Unavailable [phone] Amanda Villa DO Primary Care Provider [phone] Bhargavi Tena MD Primary Care Provider Encounter Details Date Type Department Care Team (Late st Contact Info) Description 08/27/2020 Orders Only [facility] Scanning, Provider Social History Tobacco Use Types Packs/Day Years Used Date Smoking Tobacco: Former Cigarettes Q uit: 12/19/1993 Smokeless Tobacco: Never Sex and Gender Information Value Date Recorded Sex Assigned at Not on file 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
--- OUTSIDE RECORDS SUMMARY | 2025-02-06 08:56 | XMS_ITS | Encounter Summary ---
Author Organization [facility] Address [address] [place] [address] Phone Care Team Providers Care Precipitator Operator Name Role Phone Lora Bajwa MD Unavailable [phone] Amanda Villa DO Primary Care Provider [phone] Bhargavi Tena MD Primary Care Provider Encounter Details Date Type Department Care Team (Late st Contact Info) Description 11/16/2020 Orders Only [facility] Scanning, Provider Social History Tobacco Use Types Packs/Day Years Used Date Smoking Tobacco: Former Cigarettes Q uit: 12/19/1993 Smokeless Tobacco: Never Sex and Gender Information Value Date Recorded Sex Assigned at Not on file 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
== END 2025-02-06 08:47 | disposition home or self-care (01) ==
PROVIDERS: PCP Family Medicine; Visit Provider Nurse Practitioner Adult Health
DX: S32.040D Wedge compression fracture of fourth lumbar vertebra, subsequent encounter for fracture with routine healing (principal); X58.XXXD Exposure to other specified factors, subsequent encounter
CPT/HCPCS: 72100

== ENCOUNTER 2025-02-27 07:30 | Outpatient (CLI) | payer MEDICARE, OTHER, SELFPAY ==
--- OUTSIDE RECORDS SUMMARY | 2003-08-03 09:30 | XMS_ITS | Continuity of Care Document ---
Author Organization [facility] Address [address] [place] [address] Phone Care Team Providers Care Patient Clerical Assistant Name Role Phone Michael Johnson DO Unavailable Unavailable Advance Directives Directive Yes / No Effective Date File Name No Information Encounters Encounter Description Practice Location Reason(s) For Visit Diagnoses Date Provider Providers Copied on Encounter [facility], [address], [place], [place], [id number], [place] tel:[phone] [facility] No Information Alex Stein. [address] [place], [address], [place]. tel: [phone] Family History Family Member Type Diagnosis Age At Onset No Information Payers Payer name Insurance type Covered constitution party ID Authoriza tion(s) No Information Social History Type Description Quantity Date Captured Comments Sex Male Smoking Status No Information Chief Complaint And Reason For Visit No Information Reason For Referral Reason For Referral No Information History Of Present Illness Encounter Date Complaint History Of Prese nt Illness No Information Functional Status Date Functional Assessmen t No Information Instructions Date Instruction Additional Infor mation No Information Assessments Type Assessment Date No Information Patient Care Teams Name Effective Dates (start - stop) Status Members No Information
--- OUTSIDE RECORDS SUMMARY | 2025-02-27 07:34 | XMS_ITS | Encounter Summary ---
Author Organization [facility] Address [address] [facility] [place] [address] Care Team Providers Care Residential Sales Associate Name Role Phone Unavailable Primary Care Provider Unavailabl e Encounter Details Date Type Department Care Team (Late st Contact Info) Description 08/04/2019 Lab Requisition [facility] DermPath Lab [address] [facility], [place] [address] Gwen Gutiérrez MD [address] [facility] 3 [place] [address] Social History Tobacco Use Types Packs/Day Years Used Date Smoking Tobacco: Former Cigarettes Q uit: 06/22/1993 Alcohol Use Standard Drinks/Week Comments No 0 (1 standard drink = 0.6 oz pur e alcohol) Sex and Gender Information Value Date Recorded Sex Assigned at Not on file Legal Sex Male 4:48 PM TYPING CHECKER Gender Identity Not on file Sexual Orientation Not on file documented as of this encounter Plan of Treatment Not on file documented as of this encounter Procedures Procedure Name Priority Date/Time Associated Diagnosis Comments DERMATOPATHOLOGY Routine 08/01/2019 12:0 0 AM TYPING CHECKER documented in this encounter Results * DERMATOPATHOLOGY (08/01/2019 12:00 AM TYPING CHECKER) Case Report Dermatopathology Report Case: [id number] Authorizing Provider: Gwen Gutiérrez MD Collected: 08/01/2019 12:00 AM Ordering Location: [facility] DermPath Lab Received: 08/04/2019 07:48 AM Pathologist: Vincent Hubbard MD Specimen: Skin, right sup chest 0 1:20 PM [facility] DERMATOPATHOLOGY LABORATORY Final Diagnosis Specimen A. SKIN, right sup chest: SEBORRHEIC KERATOSIS, IRRITATED (L82.0) 0 1:20 PM [facility] DERMATOPATHOLOGY LABORATORY at 1320 TYPING CHECKER Clinical History MM vs SK. Irreg color. 0 1:20 PM [facility] DERMATOPATHOLOGY LABORATORY Gross Description Specimen A: Received is one formalin filled container labeled with the patient's name and designated right sup chest. The specimen consists of a shave measuring [id number]. Jar 0. 0 1:20 PM [facility] DERMATOPATHOLOGY LABORATORY Microscopic Description Specimen A. SKIN, right sup chest: There is acanthosis consisting of fairly uniform squamous cells with eosinophilic cytoplasm and squamous eddies. 0 1:20 PM [facility] DERMATOPATHOLOGY LABORATORY Disclaimer An external and internal positive and negative controls are appropriate for the histochemical, immunohistochemical and immunofluorescence stain(s) in this case (if any), except where stated explicitly. The performance characteristics of the stain(s) cited in this report were developed and its performance characteristic determined by the Dermatopathology Laboratory at [facility], directed by Dr. Sandi Hubbard. These tests need not be, and therefore are not, approved by the [place] Food and Drug Administration. The tests are used for clinical purposes. Billing Codes Specimen Charges Stain Charges 33871 1 0 1:20 PM [facility] DERMATOPATHOLOGY LABORATORY Embedded Images 0 1:20 PM [facility] DERMATOPATHOLOGY LABORATORY Pathology/Cytolog y TISSUE SPECIMEN FROM SKIN / Unknown 08/01/2019 08/04/2019 7:48 AM [facility] us Gwen Gutiérrez MD LAB - PATHOLOGY/CYTOLOGY OR DERABLES Final Result DERMATOPATHOLOGY LABORATORY [facility] - Department of Dermatology [address] [place] [address], 5th [place] [address], [facility] [phone] documented in this encounter Visit Diagnoses Not on filedocumented in this encounter
--- OUTSIDE RECORDS SUMMARY | 2025-02-27 07:34 | XMS_ITS | Encounter Summary ---
Author Organization [facility] Address [address] [place] [address] Care Team Providers Care Satellite Tv Installer Name Role Phone Unavailable Primary Care Provider Unavailabl e Encounter Details Date Type Department Care Team (Late st Contact Info) Description 09/03/2024 Lab Requisition [facility] - DermPath Lab [address] [facility] [place] [address] Johanna Wagner MD [address] [facility] [address] [place] [address] Social History Tobacco Use Types Packs/Day Years Used Date Smoking Tobacco: Former Cigarettes Q uit: 06/22/1993 Alcohol Use Standard Drinks/Week Comments No 0 (1 standard drink = 0.6 oz pur e alcohol) Sex and Gender Information Value Date Recorded Sex Assigned at Not on file 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 Gender Identity Not on file Sexual Orientation Not on file documented as of this encounter Plan of Treatment Not on file documented as of this encounter Procedures Procedure Name Priority Date/Time Associated Diagnosis Comments DERMATOPATHOLOGY Routine 09/03/2024 3:06 PM CDT documented in this encounter Results * DERMATOPATHOLOGY (09/03/2024 3:06 PM CDT) Case Report Dermatopathology Report Case: [id number] Authorizing Provider: Johanna Wagner MD Collected: 09/03/2024 03:06 PM Ordering Location: [facility] - Received: 09/05/2024 08:55 AM [...] characteristic determined by the Dermatopathology Laboratory at [facility], directed by Dr. Sandi Hubbard. These tests need not be, and therefore are not, approved by the [place] Food and Drug Administration. The tests are used for clinical purposes. Billing Codes Specimen Charges Stain Charges 35745 99000 1 1 1:18 PM CDT DERMATOPATHOLOGY LABORATORY [...] DERMATOPATHOLOGY LABORATORY [facility] - Department of Dermatology [facility] Specialized Medicine [address] [place] [address], [address]rd Floor [address] [phone] documented in this encounter Visit Diagnoses Not on filedocumented in this encounter
--- OUTSIDE RECORDS SUMMARY | 2025-02-27 07:34 | XMS_ITS | Encounter Summary ---
Author Organization [facility] Address [address] [place] [address] Phone Care Team Providers Care Ct Scan Special Procedures Technologist Name Role Phone Lora Bajwa MD Unavailable [phone] Amanda Villa DO Primary Care Provider [phone] Bhargavi Tena MD Primary Care Provider Encounter Details Date Type Department Care Team (Late st Contact Info) Description 11/16/2020 Orders Only [facility] Scanning, Provider Social History Tobacco Use Types Packs/Day Years Used Date Smoking Tobacco: Former Cigarettes Q uit: 12/19/1993 Smokeless Tobacco: Never Sex and Gender Information Value Date Recorded Sex Assigned at Not on file 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 [address] [place] [address] PCP - General Family Medicine 11/30/20 Lora Bajwa MD [address] [place] [address] Referring Physician Family Practice 11/20/18 documented as of this encounter
--- OUTSIDE RECORDS SUMMARY | 2025-02-27 07:34 | XMS_ITS | Encounter Summary ---
Author Organization [facility] Address [address] [place] [address] Phone Care Team Providers Care Trauma Counsellor Name Role Phone Mk Lewis MD Primary Care Provider [phone] Lora Bajwa MD Primary Care Provider Lora Bajwa MD Unavailable [phone] Amanda Villa DO Primary Care Provider [phone] Bhargavi Tena MD Primary Care Provider Encounter Details Date Type Department Care Team (Late st Contact Info) Description 11/25/2015 Orders Only [facility] Scanning, Provider Social History Tobacco Use Types Packs/Day Years Used Date Smoking Tobacco: Never Assessed Sex and Gender Information Value Date Recorded Sex Assigned at Not on file 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 Gender Identity Male 02/26/2020 6:57 AM [...] on filedocumented in this encounter Care Teams Trauma Counsellor Relationship Specialty Start Date End Date Mk Lewis MD PCP - General 12/05/16 03/06/17 Lora Bajwa MD [address] [facility], [place] [address] PCP - General 03/07/17 12/02/19 Amanda Villa DO [address] [facility], [place] [address] PCP - General 12/03/19 11/29/20 Bhargavi Tena MD [address] [facility] [address] [place], [place] [id number] PCP - General Family Medicine 11/30/20 Lora Bajwa MD [address] [facility], [place] [address] Referring Physician Family Practice 11/20/18 documented as of this encounter
--- OUTSIDE RECORDS SUMMARY | 2025-02-27 07:34 | XMS_ITS | Clinical Summary ---
Author Organization [facility] Address [address] [facility] [place] [address] Care Team Providers Care Supervisor Multifocal Lens Name Role Phone Unavailable Primary Care Provider Unavailabl e Source Comments [facility],non-owned Affiliates and Associated Physician Practices is amultiple site organization consisting of ambulatory clinics and hospital sitesin [place], [place], [place] and [place]. This disclosure is being madepursuant to the Care Everywhere program and may not contain all information available regarding this patient. 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 Gender Identity Not on file Sexual Orientation Not on file Last Filed Vital Signs Vital Sign Reading Time Taken Comments Blood Pressure 139/83 05/22/2013 12:57 PM CABLE OPERATOR Pulse 75 05/22/2013 12:57 PM CABLE OPERATOR Temperature 36.9 C (98.4 F) 05/22/2013 12:57 PM CABLE OPERATOR Respiratory Rate 16 05/22/2013 12:57 PM CABLE OPERATOR Oxygen Saturation 96% 05/22/2013 12:57 PM CABLE OPERATOR Inhaled Oxygen Concentration - - Weight 116.1 kg (256 lb) 05/22/2013 8:02 AM CABLE OPERATOR Height 182.9 cm (6') 05/22/2013 8:02 AM CABLE OPERATOR Body Mass Index 34.72 05/22/2013 8:02 AM CABLE OPERATOR Plan of Treatment Health Maintenance Due [...] (1 of 2) 2005 AAA SCREENING 2020 DEPRESSION SCREENING 06/18/2024 COVID-19 VACCINE (1 - 2023-2 5 season) 2025 INFLUENZA VACCINE (#1) 2025 Respiratory Syncytial Virus [...]
--- OUTSIDE RECORDS SUMMARY | 2025-02-27 07:34 | XMS_ITS | Encounter Summary ---
Author Organization [facility] Address [address] [facility] [place] [address] Care Team Providers Care Solar Crew Member Name Role Phone Unavailable Primary Care Provider Unavailabl e Encounter Details Date Type Department Care Team (Late st Contact Info) Description 08/29/2023 Lab Requisition [facility] - DermPath Lab [address] [facility], [place] [address] Johanna Wagner MD [address] [facility] [address] [place] [address] Social History Tobacco Use Types Packs/Day Years Used Date Smoking Tobacco: Former Cigarettes Q uit: 06/22/1993 Alcohol Use Standard Drinks/Week Comments No 0 (1 standard drink = 0.6 oz pur e alcohol) Sex and Gender Information Value Date Recorded Sex Assigned at Not on file 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 Gender Identity Not on file Sexual Orientation Not on file documented as of this encounter Plan of Treatment Not on file documented as of this encounter Procedures Procedure Name Priority Date/Time Associated Diagnosis Comments DERMATOPATHOLOGY Routine 08/29/2023 8:34 AM CDT documented in this encounter Results * DERMATOPATHOLOGY (08/29/2023 8:34 AM CDT) Case Report Dermatopathology Report Case: [id number] Authorizing Provider: Johanna Wagner MD Collected: 08/29/2023 08:34 AM Ordering Location: [facility] - Received: 08/30/2023 [...] characteristic determined by the Dermatopathology Laboratory at [facility], directed by Dr. Sandi Hubbard. These tests need not be, and therefore are not, approved by the [place] Food and Drug Administration. The tests are used for clinical purposes. Billing Codes Specimen Charges Stain Charges 48964 60630 1 1 3:33 PM CDT DERMATOPATHOLOGY LABORATORY [...] Department of Dermatology [facility] Specialized Medicine [address] [place] [address], [address]rd [address] [phone] documented in this encounter Visit Diagnoses Not on filedocumented in this encounter
--- OUTSIDE RECORDS SUMMARY | 2025-02-27 07:34 | XMS_ITS | Encounter Summary ---
Author Organization [facility] Address [address] [place] [address] Phone Care Team Providers Care Proof Machine Operator Supervisor Name Role Phone Lora Bajwa MD Unavailable [phone] Bhargavi Tena MD Primary Care Provider Encounter Details Date Type Department Care Team (Late st Contact Info) Description 08/16/2021 Orders Only [facility] Scanning, Provider Social History Tobacco Use Types Packs/Day Years Used Date Smoking Tobacco: Former Cigarettes Q uit: 12/19/1993 Smokeless Tobacco: Never Sex and Gender Information Value Date Recorded Sex Assigned at Not on file 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
--- OUTSIDE RECORDS SUMMARY | 2025-02-27 07:34 | XMS_ITS | Clinical Summary ---
Author Organization [facility] Address [address] [place] [address] Care Team Providers Care County Supervisor Name Role Phone Lora Bajwa MD Unavailable [phone] Bhargavi Tena MD Primary Care Provider Allergies [...] by mouth nightly at bedtime 4 Active hydroxychloroq uine (PLAQUENIL) 200 mg tabletIndicati [...] TWICE DAILY FOR 7 DAYS 5 Active ciprofloxacin- dexAMETHasone (CIPRODEX) otic suspension Administer 4 drops into the right ear 2 (two) times a day 7.5 mL 3 5 Active methotrexate 2.5 mg tabletIndicati ons:Rheumatoid Arthritis Take 10 tablets (25 mg total) by mouth once a week 120 tablet 1 5 Active methylPREDNISo lone (MEDROL DOSEPACK) 4 mg Dosepack Take as directed on package 1 packet 5 Active methotrexate 2.5 mg tabletIndicati ons:Rheumatoid Arthritis Take 10 tablets (25 mg total) by mouth once a week 120 tablet 1 5 02/10/20 25 Discontin ued(Reord er) Active Problems Problem [...] Erectile disorder due to medical condition in ma le 02/05/2025 Hearing loss of both ears 02/05/2025 Immunocompromised patient 02/05/2025 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 Left arm pain 02/05/2025 Left shoulder pain 02/05/2025 Leukocytosis 02/05/2025 LPRD (laryngopharyngeal reflux disease) 02/06/20 25 Osteopenia 02/05/2025 Partial thickness tear of left [...] FOR AGE AND GENDER. 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, [address] [place] [phone] Samira Bruce, ROS Chronic atticoantral suppurative otitis media, right ear (Primary Dx); Mixed hearing loss, bilateral; Acute myringitis of ear, right 02/05/2025 Orders Only [facility] Otolaryngology 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 (HCC) (Primary Dx) 01/09/2025 10:25 AM CDT - 01/09/2025 11:59 PM CDT Hospital Encounter [address] [address] High risk medication use Discharge Disposition: Discharge to home or self care 12/11/2024 [facility]phone [facility] [address] [place] [address] Chandana Maurice from Last 3 Months Surgical [...] Wheeze Tinnitus Diabetes mellitus (HCC) Type II Back injury L3 and L4 Fractu res Family History Medical History Relation Name Comments Cancer Father Lincoln Fleming Sr Diabetes Father Lincoln Fleming Sr Fa yvette history of diabetes mellitus - (Added by Conv) Heart disease Father Lincoln Fleming Sr F amily history of cardiac disorder - (Added by Conv) Hypertension Father Lincoln Fleming Sr Fa yvette history of hypertension - (Added by Conv) Lung cancer Father Lincoln Fleming Sr Fa yvette history of lung cancer - (Added by Conv) Relation Name Status Comments Father Lincoln Fleming Sr Social History Tobacco Use Types Packs/Day Years Used Date Smoking Tobacco: Former Cigarettes Q uit: 12/19/1993 Passive Smoke Exposure: Past Smokeless Tobacco: Never Tobacco Cessation:Counseling Given: Not Answered Sex and Gender Information Value Date Recorded Sex Assigned at Not on file 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 Gender Identity Male 02/26/2020 6:57 AM CDT Sexual Orientation Straight 02/26/2020 6: 57 AM CDT Obstetrics History Last Filed Vital Signs Vital Sign Reading Time Taken Comments Blood Pressure 151/95 02/18/2025 10:42 AM CDT Pulse 82 02/18/2025 10:42 AM CDT Temperature 36.7 C (98.1 F) 02/18/2025 10:42 AM CDT Respiratory Rate - - Oxygen Saturation 96% 02/18/2025 10:42 AM CDT Inhaled Oxygen Concentration - - Weight 127 kg (280 lb) 02/18/2025 10:42 AM CDT Height 182.9 cm (6') 02/18/2025 10:42 AM CDT Body Mass Index 37.97 02/18/2025 10:42 AM CDT Plan of Treatment Health Maintenance Due Date [...] BLOOD ORDERABLES Final Result [facility] Department [place] [address] * Differential, auto (01/09/2025 10:25 AM CDT) Neutrophil abs 2.89 1.50 - 6.50 K/cumm Imm gran abs 0.02 0.00 - 0.10 K/cumm [facility] Lymphocyte abs 2.14 0.80 - 3.30 K/cumm [facility] Monocyte abs 0.44 0.20 - 0.80 K/cumm [facility] Eosinophil abs 0.09 0.00 - 0.50 K/cumm [facility] Basophil abs 0.04 0.00 - 0.10 K/cumm [facility] Neutrophil pct 51.4 % [facility] Comment: Interpretive Data Percent cell count reference ranges are not reported, since discordance with absolute values may lead to misinterpretation of CBC data. Current Interpretive Data was last revised on 2017. Imm gran pct 0.4 % [facility] Comment: Interpretive Data Percent cell count reference ranges are not reported, since discordance with absolute values may lead to misinterpretation of CBC data. Current Interpretive Data was last revised on 2017. Lymphocyte pct 38.1 % [facility] Comment: Interpretive Data Percent cell count reference ranges are not reported, since discordance with absolute values may lead to misinterpretation of CBC data. Current Interpretive Data was last revised on 2017. Monocyte pct 7.8 % [facility] Comment: Interpretive Data Percent cell count reference ranges are not reported, since discordance with absolute values may lead to misinterpretation of CBC data. Current Interpretive Data was last revised on 2017. Eosinophil pct 1.6 % [facility] Comment: Interpretive Data Percent cell count reference ranges are not reported, since discordance with absolute values may lead to misinterpretation of CBC data. Current Interpretive Data was last revised on 2017. Basophil pct 0.7 % [facility] Comment: Interpretive Data Percent cell count reference ranges are not reported, since discordance with absolute values may lead to misinterpretation of CBC data. Current Interpretive Data was last revised on 2017. Blood 01/09/2025 10:2 5 AM CDT 01/09/2025 2:03 PM CDT us Malina Renteria NP LAB BLOOD ORDERABLES Final Result [facility] Department [place] [address] * CBC with auto differential (01/09/2025 10:25 AM CDT) Pathologist [facility] WBC 5.62 3.80 - 9.90 K/cumm Hgb 14.8 13.0 - 17.5 g/dL [facility] Hct 44.6 38.9 - 50.3 % [facility] Plt 252 150 - 400 K/cumm [facility] MPV 10.3 9.1 - 12.3 fL [facility] RBC 4.68 4.30 - 5.80 M/cumm [facility] MCV 95.3 81.3 - 96.4 fL [facility] MCH 31.6 27.1 - 33.3 pg [facility] MCHC 33.2 32.3 - 35.7 g/dL [facility] RDW CV 13.5 11.1 - 14.9 % [facility] RDW SD 46.5 35.7 - 48.1 fL [facility] NRBC abs 0.00 0.00 - 0.01 K/cumm [facility] Blood 01/09/2025 10:2 5 AM CDT 01/09/2025 2:03 PM CDT us Malina Renteria CORK COMPOUNDER LAB BLOOD ORDERABLES Final Result [facility] Department [place] [address] * Bilirubin, direct (01/09/2025 10:25 AM CDT) [facility] Bilirubin, direct 0.2 0.1 - 0.3 mg/dL Blood 01/09/2025 10:2 5 AM CDT 01/09/2025 2:03 PM CDT Malina Renteria CORK COMPOUNDER LAB BLOOD ORDERABLES Final Result [facility] Department [place] [address] * Comprehensive metabolic panel (01/09/2025 10:25 AM CDT) Sodium 144 135 - 145 mmol/L Potassium, pl 4.3 3.3 - 4.9 mmol/L [facility] Chloride 106 97 - 110 mmol/L [facility] CO2 28 22 - 32 mmol/L [facility] Anion gap 10 2 - 15 mmol/L [facility] BUN 12 6 - 25 mg/dL [facility] Creatinine 0.92 0.80 - 1.30 mg/dL [facility] Glucose 174 70 - 199 mg/dL [facility] Comment: Interpretive Data Fasting glucose >/= 126 [...] 2022. Calcium 9.2 8.5 - 10.3 mg/dL [facility] Bilirubin, total 0.6 0.1 - 1.2 mg/dL [facility] Protein, pl 7.2 6.5 - 8.5 g/dL [facility] Albumin 4.1 3.5 - 5.0 g/dL [facility] Alk phos 80 40 - 130 Units/L [facility] ALT 28 7 - 55 Units/L [facility] AST 33 10 - 50 Units/L [facility] Blood 01/09/2025 10:2 5 AM CDT 01/09/2025 2:03 PM CDT us Malina Renteria NP LAB BLOOD ORDERABLES Final Result [facility] [place] [address] * CT Abdomen Pelvis WO Contrast (10/17/2016 [...] 07:47 AM 07:47 AM MHE [EOD] Asad oWody MD IMG CT PROCEDURES Final R esult from Last 3 Months or Most Recently Relevant to Health Maintenance Insurance MEDICARE [employer] MEDICARE [facility] MEDICARE [facility] Advance Directives For more information, please contact: [phone] Documents on File Type Date Recorded 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
--- OUTSIDE RECORDS SUMMARY | 2025-02-27 07:34 | XMS_ITS | Encounter Summary ---
Author Organization [facility] Address [address] [facility] [place] [address] Care Team Providers Care Cupola Operator Name Role Phone Unavailable Primary Care Provider Unavailabl e Encounter Details Date Type Department Care Team (Late st Contact Info) Description 02/14/2018 Lab Requisition [facility] Care DermPath Lab [address] [facility] [place] [address] Gwen Gutiérrez MD [address] [facility] [address] [place] [address] Social History Tobacco Use Types Packs/Day Years Used Date Smoking Tobacco: Former Cigarettes Q uit: 06/22/1993 Alcohol Use Standard Drinks/Week Comments No 0 (1 standard drink = 0.6 oz pur e alcohol) Sex and Gender Information Value Date Recorded Sex Assigned at Not on file Legal 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 The margins are inked green. Jar 0. [facility] Dermatopathology Laboratory performed the technical component only. [...] characteristic determined by the Dermatopathology Laboratory at [facility]. These tests need not be, and therefore are not, approved by the [place] Food and Drug Administration. The tests are used for clinical purposes. 1:19 PM [facility] DERMATOPATHOLOGY LABORATORY at 13[address] CDT Pathology/Cytolog y TISSUE SPECIMEN FROM SKIN / Unknown 02/12/2018 02/14/2018 6:14 AM CDT Gwen Gutiérrez MD LAB - PATHOLOGY/CYTOLOGY OR DERABLES Final Result DERMATOPATHOLOGY LABORATORY [facility] - Department of Dermatology [address] [place] [address], 5th [place] [address], [facility] [phone] documented in this encounter Visit Diagnoses Not on filedocumented in this encounter
--- OUTSIDE RECORDS SUMMARY | 2025-02-27 07:34 | XMS_ITS | Encounter Summary ---
Author Organization [facility] Address [address] [facility] [place] [address] Care Team Providers Care Repair Welder Name Role Phone Unavailable Primary Care Provider Unavailabl e Encounter Details Date Type Department Care Team (Late st Contact Info) Description 10/13/[address] 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 - Received: 10/14/2024 07:25 [...] A. Bx Proven BCC B. Non Healing Bern Papule R/O BCC 5:12 PM CDT DERMATOPATHOLOGY LABORATORY Gross Description Specimen A: Received is one formalin filled container labeled with the patient's name and designated right neck.The specimen consists of an ellipse measuring [id number] mm and is oriented with the suture/notch [...] characteristic determined by the Dermatopathology Laboratory at [facility], directed by Dr. Sandi Hubbard. These tests need not be, and therefore are not, approved by the [place] Food and Drug Administration. The tests are used for clinical purposes. Billing Codes Specimen Charges Stain Charges 13386 24034 1 1 5 5:12 PM CDT DERMATOPATHOLOGY LABORATORY Embedded Images 5 5:12 PM CDT DERMATOPATHOLOGY LABORATORY Pathology/Cytology TISSUE SPECIMEN FROM SKIN / Unknown 10/13/2024 8:59 AM CDT 10/14/2024 7:25 AM CDT Miscellaneous samples (specimen) TISSUE SPECIMEN FROM SKIN / Unknown 10/13/2024 8:59 AM CDT 10/14/2024 7:25 AM CDT us Johanna Wagner MD LAB - PATHOLOGY/CYTOLOGY ORD ERABLES Final Result DERMATOPATHOLOGY LABORATORY [facility] - Department of Dermatology [facility] Medicine [address] [place] [address], 3rd [place] [address], [facility] [phone] documented in this encounter Visit Diagnoses Not on filedocumented in this encounter
--- OUTSIDE RECORDS SUMMARY | 2025-02-27 07:34 | XMS_ITS | Encounter Summary ---
Author Organization [facility] Address [address] [place] [address] Care Team Providers Care Community Nutrition Educator Name Role Phone Unavailable Primary Care Provider Unavailabl e Encounter Details Date Type Department Care Team (Late st Contact Info) Description 10/27/2024 Lab Requisition [facility] Physician [facility] - DermPath Lab [address] [place] [id number] Johanna Wagner MD [address] [facility] [address] [place] [address] Social History Tobacco Use Types Packs/Day Years Used Date Smoking Tobacco: Former Cigarettes Q uit: 06/22/1993 Alcohol Use Standard Drinks/Week Comments No 0 (1 standard drink = 0.6 oz pur e alcohol) Sex and Gender Information Value Date Recorded Sex Assigned at Not on file 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 Gender Identity Not on file Sexual Orientation Not on file documented as of this encounter Plan of Treatment Not on file documented as of this encounter Procedures Procedure Name Priority Date/Time Associated Diagnosis Comments DERMATOPATHOLOGY Routine 10/27/2024 8:24 AM CDT documented in this encounter Results * DERMATOPATHOLOGY (10/27/2024 8:24 AM CDT) Case Report Dermatopathology Report Case: [id number] Authorizing Provider: Johanna Wagner MD Collected: 10/27/2024 08:24 AM Ordering Location: [facility] - Received: 10/27/2024 01:08 [...] auricular.The specimen consists of an ellipse measuring [id number] mm and is oriented with the suture/notch [...] by the Dermatopathology Laboratory at [facility], directed by Dr. Sandi Hubbard. These tests need not be, and therefore are not, approved by the [place] Food and Drug Administration. The tests are used for clinical purposes. Billing Codes Specimen Charges Stain Charges 37279 1 5 12:44 PM CDT DERMATOPATHOLOGY LABORATORY Embedded Images 12:44 PM CDT DERMATOPATHOLOGY LABORATORY Pathology/Cytolo gy TISSUE SPECIMEN FROM SKIN / Unknown 10/27/2024 8:24 AM CDT 10/27/2024 1:08 PM CDT us Johanna Wagner MD LAB - PATHOLOGY/CYTOLOGY ORD ERABLES Final Result DERMATOPATHOLOGY LABORATORY [facility] - Department of Dermatology [facility] [address] [place] [address], [address] [phone] documented in this encounter Visit Diagnoses Not on filedocumented in this encounter
--- OUTSIDE RECORDS SUMMARY | 2025-02-27 07:34 | XMS_ITS | Encounter Summary ---
Author Organization [facility] Address [address] [place] [address] Phone Care Team Providers Care Hardener Helper Name Role Phone Lora Bajwa MD Unavailable + [phone] Bhargavi Tena MD Primary Care Provider Encounter Details Date Type Department Care Team (Late st Contact Info) Description 05/26/2022 Orders Only [facility] Scanning, Provider Social History Tobacco Use Types Packs/Day Years Used Date Smoking Tobacco: Former Cigarettes Q uit: 12/19/1993 Smokeless Tobacco: Never Sex and Gender Information Value Date Recorded Sex Assigned at Not on file 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
--- OUTSIDE RECORDS SUMMARY | 2025-02-27 07:34 | XMS_ITS | Encounter Summary ---
Author Organization [facility] Address [address] [place] [address] Phone Care Team Providers Care Sales Representative Metals Name Role Phone Lora Bajwa MD Unavailable [phone] Amanda Villa DO Primary Care Provider [phone] Bhargavi Tena MD Primary Care Provider Encounter Details Date Type Department Care Team (Late st Contact Info) Description 08/27/2020 Orders Only [facility] Scanning, Provider Social History Tobacco Use Types Packs/Day Years Used Date Smoking Tobacco: Former Cigarettes Q uit: 12/19/1993 Smokeless Tobacco: Never Sex and Gender Information Value Date Recorded Sex Assigned at Not on file 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
--- OUTSIDE RECORDS SUMMARY | 2025-02-27 07:34 | XMS_ITS | Encounter Summary ---
Author Organization [facility] Address [address] [place] [address] Phone Care Team Providers Care Emu Farm Worker Name Role Phone Lora Bajwa MD Unavailable + [phone] Bhargavi Tena MD Primary Care Provider Encounter Details Date Type Department Care Team (Late st Contact Info) Description 03/02/2021 Orders Only [facility] Scanning, Provider Social History Tobacco Use Types Packs/Day Years Used Date Smoking Tobacco: Former Cigarettes Q uit: 12/19/1993 Smokeless Tobacco: Never Sex and Gender Information Value Date Recorded Sex Assigned at Not on file 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
--- OUTSIDE RECORDS SUMMARY | 2025-02-27 07:34 | XMS_ITS | Encounter Summary ---
Author Organization [facility] Address [address] [place] [address] Phone Care Team Providers Care Keno Writer / Runner Name Role Phone Lora Bajwa MD Unavailable + [phone] Bhargavi Tena MD Primary Care Provider Encounter Details Date Type Department Care Team (Late st Contact Info) Description 11/16/2021 Orders Only [facility] Scanning, Provider Social History Tobacco Use Types Packs/Day Years Used Date Smoking Tobacco: Former Cigarettes Q uit: 12/19/1993 Smokeless Tobacco: Never Sex and Gender Information Value Date Recorded Sex Assigned at Not on file 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
[2025-02-27 08:17] LABS: Hemoglobin A1C 6.9 % (<5.7)
[2025-02-27 08:32] LABS: Alanine Aminotransferase 31 U/L (6-50); Albumin Level 4.0 g/dL (3.5-5.1); Alkaline Phosphatase 82 U/L (38-126); Anion Gap 8 mmol/L (4-12); Aspartate Amino Transferase 36 U/L (17-59); Bilirubin,Total 0.6 mg/dL (0.2-1.3); Blood Urea Nitrogen 18 mg/dL (9-20); Calcium 9.2 mg/dL (8.4-10.2); Carbon Dioxide 26 mmol/L (22-30); Chloride 106 mmol/L (98-107); Cholesterol 114 mg/dL (0-200); Estimated Glomerular Filt Rate > 60; Glucose 173 mg/dL (65-110); HDL Direct 41 mg/dL; Potassium 4.1 mmol/L (3.4-5.0); Sodium 140 mmol/L (137-145); Total Protein 7.2 g/dL (6.3-8.2); Triglycerides 117 mg/dL (<150)
[2025-02-27 08:41] LABS: Free T4 Free Thyroxine 1.02 ng/dL (0.78-2.19)
[2025-02-27 09:08] LABS: Thyroid Stimulating Hormone 6.600 uIU/mL (0.465-4.680)
[2025-02-27 09:23] LABS: MALB Creatinine Ratio 4.1 mg/g (0-30)
== END 2025-02-27 07:31 | disposition home or self-care (01) ==
PROVIDERS: PCP Family Medicine; Visit Provider Physician Assistant
DX: E11.9 Type 2 diabetes mellitus without complications (principal); I10 Essential (primary) hypertension; E78.5 Hyperlipidemia, unspecified; E07.9 Disorder of thyroid, unspecified
CPT/HCPCS: 36415; 80053; 80061; 82043; 83036; 84439; 84443